=== PATIENT | female | born 1960 | race Caucasian/White ===

== ENCOUNTER 2024-04-09 13:47 | Outpatient (OUT) | payer BC, SELFPAY | END 2024-04-09 13:48 | disposition home or self-care (01) | LOC: CARD 13:50 | PROVIDERS: PCP Physician Assistant; Visit Provider Physician Assistant | DX: R00.2 Palpitations (principal); R06.02 Shortness of breath | CPT/HCPCS: 93246 ==

== ENCOUNTER 2024-06-01 07:08 | Outpatient (OUT) | payer BC, SELFPAY ==
--- NOTE | 2024-06-01 | NM_ITS ---
Patient Name: CHESTER UGALDE MR#: [id number] : 1960 Exam Date: 06/01/2024 Ordering Doctor: DR ARLENE HADDAD M.D. RADIOLOGY REPORT PROCEDURE: NM SHAY PERF SPECT REST STR COMPARISON: None. INDICATIONS: SHORTNESS OF BREATH TECHNIQUE: Exam Description: Stress/Rest one day protocol gated SPECT Rest Imagin.4 mCi Tc-99m Cardiolite IV on 06/01/2024 Stress Imaging 31.2 mCi Tc-99m Cardiolite IV on 06/01/2024 Exercise Protocol: 0.4 mg Lexiscan given IV Heart Rate (bpm): Rest: 63 Max: 102 PMHR: 64 Blood Pressure: Rest: 126/78 Max: 132/76 Symptoms: Rest and peak stress ECG findings were normal and the exercise portion of the study was normal per attending physician Dr. Lemus . For more details please see separate cardiac stress test report. FINDINGS: QUALITY OF STUDY: Excellent. PERFUSION DEFECT: None. LOCATION: N/A SIZE: N/A. SEVERITY: N/A. TYPE: N/A. WALL MOTION: Normal. LV SIZE: Normal. 70 mL. TID / TCD: None; 0.9 LVEF: Normal. Calculated EF 75%. SUMMARY: Myocardial perfusion imaging study is NORMAL. CONCLUSION: 1. Normal nuclear medicine myocardial perfusion scan. Dictated by: Jeff Martinez M.D. on 06/02/2024 at 13:14 Approved by: Jeff Martinez M.D. on 06/02/2024 at 13:20
--- NOTE | 2024-06-01 | PCN_ITS ---
CARDIAC STRESS TEST Requesting Physician: Procedure Date: 06/01/2024 This was a Lexiscan stress test with myocardial perfusion imaging, performed at [facility] on 06/01/2024. Informed consent was obtained. The patient was attached to electrocardiographic monitoring. An intravenous line was secured. Baseline ECG and vital signs were obtained. Lexiscan 0.4 mg was infused intravenously, followed by administration of Cardiolite. The patient then went on to obtain myocardial perfusion imaging. Resting heart rate was 63 BPM and maximum heart rate was 102 BPM. Resting blood pressure was 126/78 and maximum blood pressure was 132/76. Resting ECG showed sinus bradycardia with occasional PVCs. ECG following infusion of Lexiscan showed sinus rhythm with occasional PVCs. There were no ischemic ST changes seen. SUMMARY OF THE FINDINGS: 1. No evidence of ischemic ECG changes seen following infusion of Lexiscan. 2. Myocardial perfusion images will be reported separately. [facility]
--- OUTSIDE RECORDS SUMMARY | 2024-06-01 07:11 | XMS_ITS | CCD ---
Author Organization [facility] Care Team Providers Care Bit Setter Name Role Phone CANDY GEE Unavailable Unavailable CANDY GEE Unavailable Unavailable CANDY GEE Unavailable Unavailable Candy Gee Primary Care Provider Candy Gee Primary Care Provider Candy Gee Primary Care Provider CANDY GEE Primary Care Unavailable INO BROTHERS Referring Unavailabl e CANDY GEE Primary Care Unavailable SAMANTHA WEAVER Referring Unavailable Cali Zhao MD Unavailable Jose Cruz Young MD Primary Care Provider [phone] Candy Patterson Primary Care Provider CANDY GEE Attending Unavailable CANDY GEE Attending Unavailable ALEJANDRO CEBALLOS Attending Unavailable CANDY GEE Attending Unavailable Candy Gee PA-C Primary Care Provider SAMANTHA WEAVER Referring Unavailable CANDY GEE Primary Care Unavailable ARLENE HADDAD Attending Unavailable Allergies Allergy Classification Reported Allergen(s) Allergy Type Date of Onset Reaction(s) Facility NSAIDs (2 sources) celecoxib Drug Allergy 2 [facility] (See Comments[facility] Penicillins (antibiotic) (1 source) Penicillins Drug Allergy 2 Swelling [facility] (17 sources) celecoxib; Translations: [celecoxib] Drug Allergy 2 Other (See Comments) [facility] (1 source) penicillin; Translations: [penicillin] Drug Allergy [facility] (15 sources) Shellfish-Deriv ed Products Propensity to adverse reactions to drug 2 Diarrhea, Nausea And Vomiting, GI intolerance, Other [facility] (11 sources) meloxicam Drug Allergy 8 Other (See Comments) [facility] (16 sources) Penicillins; Translations: [PENICILLINS] Propensity to adverse reactions to drug 2 Swelling [facility] Work Phone: (12 sources) gabapentin; Translations: [GABAPENTIN] Drug Allergy 2 Nausea Only [facility] [employer] (4 sources) meloxicam Drug Allergy 3 Other [facility] (1 source) Seafood Propensity to adverse reactions to drug 2 Diarrhea, Nausea And Vomiting [facility] (1 source) Shellfish; Translations: [SHELLFISH DERIVED] Propensity to adverse reactions to drug (disorder) 4 [facility] Repository Medications Current Medications Medication Drug Class(es) Dates Sig (Normalized) Sig (Original) acetaminophen 500 mg oral tablet (2 sources) Start: 02-01-2022 End: 03-03-2022 take 2 tablets by mouth every six hours as needed for pain acetaminophen (TYLENOL) 500 MG tablet Take 2 tablets by mouth every 6 hours as needed for Pain 80 tablet 1 02/01/2022 03/03/2022 Active Start: 02-01-2022 1,000 mg, Oral , EVERY 6 HOURS PRN, Starting on Adalgisa 02/01/22 at 1003, Until Discontinued, Other, Pain (1-10) Give in addition to any other pain medication ordered at same time for any pain indication. Maximum dose of acetaminophen is 4000mg from all sources in 24 hours. Alternate ibuprofen and acetaminophen every 4 hours. Post-op Aloe Vera 25 MG CAPS (1 source) take 1 tablet by mouth once daily Aloe Vera 25 MG CAPS Take 1 tablet by mouth daily Active Aloe Vera 25 MG capsule (4 sources) take 1 tablet by mouth once daily Aloe Vera 25 MG capsule Take 1 tablet by mouth 1 (one) time each day 0 Active amitriptyline hydrochloride 25 mg oral tablet (5 sources) Tricyclic Antidepressant Start: 04-28-20 End: 09-30-19 amitriptyline (ELAVIL) 25 MG tablet 50 mg 0 04/28/2018 09/29/2021 Discontinued (LIST CLEANUP) baclofen 10 mg oral tablet (5 sources) gamma-Aminobutyric Acid-ergic Agonist Start: 01-03-20 take 1 tablet by mouth once daily as needed baclofen (LIORESAL) 10 MG tablet Take 1 tablet by mouth nightly as needed 01/02/2023 Active BD Disp Needle 23G X 1 misc (4 sources) Start: 09-15-19 23 BD Disp Needle 23G X 1 misc inject IM Once a month 90 days 0 09/14/2022 Active benzocaine 15 mg / menthol 2.6 mg oral lozenge (1 source) Standardized Chemical Allergen Start: 02-02-20 Benzocaine-Menthol (CEPACOL SORE THROAT) 15-2.6 MG lozenge 1 lozenge Biotin w/ Vitamins C & E (HAIR SKIN & NAILS GUMMIES PO) (4 sources) take 1 tablet by mouth in the morning Biotin w/ Vitamins C & E (HAIR SKIN & NAILS GUMMIES PO) Take 1 tablet by mouth in the morning. 0 Active bisacodyl 5 mg delayed release oral tablet (3 sources) Stimulant Laxative Start: 07-28-19 End: 09-30-19 bisacodyl (BISACODYL) 5 MG EC tablet Follow instructions provided given by the physician's office. 4 tablet 0 07/28/2021 09/29/2021 Discontinued (Therapy completed) calcium chloride 0.0014 meq/ml / potassium chloride 0.004 meq/ml / sodium chloride 0.103 meq/ml / sodium lactate 0.028 meq/ml injectable solution (3 sources) Start: 02-02-20 IntraVENous, at 125 mL/hr, CONTINUOUS, Starting on Adalgisa 02/01/22 at 1030, Post-op Start: 02-01-2022 End: 02-01-2022 lactated ringers infusion Start: 09-29-2021 lactated ringe rs infusion cholecalciferol 0.125 mg oral tablet (11 sources) Vitamin D take 2 tablets by mouth once daily vitamin D3 (CHOLECALCIFEROL) 125 MCG (5000 UT) TABS tablet Take 2 tablets by mouth daily Active ciprofloxacin 500 mg oral tablet (1 source) Quinolone Antimicrobial Start: 2021 End: 2021 take 1 tablet by mouth in the morning ciprofloxacin (CIPRO) 500 MG tablet Take 1 tablet by mouth in the morning and 1 tablet before bedtime. Do all this for 7 days. 14 tablet 0 02/01/2022 02/08/2022 Active dapsone 0.075 mg/mg topical gel (5 sources) Sulfone Start: 2017 End: 2021 ACZONE 7.5 % GEL APPLY TO FACE ONCE DAILY 0 10/18/2017 09/29/2021 Discontinued (LIST CLEANUP) diclofenac sodium 0.01 mg/mg topical gel (12 sources) Nonsteroidal Anti-inflammatory Drug diclofenac sodium (VOLTAREN) 1 % GEL Apply 2 g topically 2 times daily Active 1 ml diphenhydrAMINE hydrochloride 50 mg/ml cartridge (1 source) Histamine-1 Receptor Antagonist Start: 2021 End: 2021 diphenhydrAMINE (BENADRYL) injection 12.5 mg docusate sodium 100 mg oral capsule (3 sources) Start: 2021 take 1 capsule by mouth twice daily as needed for constipation docusate sodium (COLACE) 100 MG capsule Take 1 capsule by mouth 2 times daily as needed for Constipation 60 capsule 0 02/01/2022 Active Elderberry preparation (4 sources) take 1 tablet by mouth in the morning ELDERBERRY PO Take 1 tablet by mouth in the morning. 0 Active estrogens, conjugated (residential) 0.625 mg/ml vaginal cream (6 sources) Estrogen Start: 2021 End: 2023 Premarin 0.625 MG/GM cream insert 0.5 gram with APPLICATOR vaginally once daily POST-OPERATIVELY ON DAY NUMBER 8 0 04/02/2022 08/15/2023 Discontinued (Therapy completed) Start: 01-16-2022 conjugated est rogens (PREMARIN) 0.625 MG/GM vaginal cream Indications: Atrophy of vagina Place 0.5 g vaginally daily Post operatively on day #8 post op 1 each 3 01/16/2022 Active 1 ml HYDROmorphone hydrochloride 1 mg/ml cartridge (3 sources) Opioid Agonist Start: 02-01-2022 HYDROmorphone (DILAUDID) injection 0.5 mg Start: 02-01-2022 HYDROmorphone (DILAUDID) injection 0.25 mg Start: 09-29-2021 HYDROmorphone (DILAUDID) injection 0.5 mg 1 ml ketorolac tromethamine 30 mg/ml cartridge (1 source) Nonsteroidal Anti-inflammatory Drug, Cyclooxygenase Inhibitor Start: 02-01-2022 End: 02-06-2022 ketorolac (TORADOL) injection 15 mg levothyroxine sodium 0.125 mg oral tablet (5 sources) l-Thyroxine Start: 07-25-2023 End: 08-15-2023 take 1 tablet by mouth once daily in the morning levothyroxine (Synthroid, Levoxyl) 125 MCG tablet Indications: Wanda's disease (CMS/HCC) take 1 tablet by mouth every morning ON AN EMPTY STOMACH 30 tablet 3 07/25/2023 08/15/2023 Discontinued (Ineffective) take 1 tablet by mouth once mat y levothyroxine (SYNTHROID) 112 MCG tablet Take 112 mcg by mouth Daily 0 Suspended 10 ml lidocaine hydrochloride 10 mg/ml injection (1 source) Antiarrhythmic, Amide Local Anesthetic Start: 09-29-2021 End: 09-29-2021 lidocaine PF 1 % injection 1 mL loratadine 10 mg oral tablet (2 sources) take 1 tablet by mouth every twenty-four hours as needed loratadine (Claritin) 10 MG tablet Take 10 mg by mouth Daily as needed for allergies 0 Active 1 ml meperidine hydrochloride 25 mg/ml cartridge (1 source) Opioid Agonist Start: 09-29-2021 meperidine (DEMEROL) injection 12.5 mg omeprazole 20 mg delayed release oral capsule (12 sources) Proton Pump Inhibitor Start: 12-21-2021 take 1 capsule by mouth twice daily before mealtime omeprazole (PRILOSEC) 20 MG delayed release capsule Take 1 capsule by mouth 2 times daily (before meals) 180 capsule 1 12/21/2021 Active Start: 02-25-2020 End: 08-15-2023 take 1 capsule by mouth once daily omeprazole (PRILOSEC) 40 MG delayed release capsule take 1 capsule by mouth once daily 30 capsule 3 02/25/2020 Active Start: 04-10-2019 take 1 capsule by mo [facility] once daily omeprazole (PRILOSEC) 20 MG delayed release capsule Take 1 capsule by mouth daily 90 capsule 3 04/10/2019 Active 2 ml ondansetron 2 mg/ml injection (1 source) Serotonin-3 Receptor Antagonist Start: 09-29-2021 End: 09-29-2021 ondansetron (ZOFRAN) injection 4 mg ondansetron (ZOFRAN-ODT) disintegrating tablet 4 mg (1 source) Start: 02-01-2022 ondansetron (ZOFRAN-ODT) disintegrating tablet 4 mg oxyCODONE (1 source) Opioid Agonist Start: 02-01-2022 oxyCODONE (ELVIA ICODONE) immediate release tablet 5 mg phenazopyridine hydrochloride 200 mg delayed release oral tablet (1 source) Start: 02-01-2022 phenazopyridin e (PYRIDIUM) tablet 200 mg polyethylene glycol 3350 [id number] mg powder for oral solution (3 sources) Osmotic Laxative Start: 07-28-2021 End: 09-29-2021 polyethylene glycol (GLYCOLAX) 17 GM/SCOOP powder Follow instructions provided to you from physician's office. 238 g 0 07/28/2021 09/29/2021 Discontinued (Therapy completed) 1000 ml sodium chloride 9 mg/ml injection (6 sources) Start: 02-01-2022 IntraVENous, a t 5-250 mL/hr, PRN, if patient receiving piggyback infusions and maintenance fluids are not ordered OR KVO fluids to protect IV site / prevent frequent line interruptions/ long duration, Starting on Adalgisa 02/01/22 at 1003 For piggyback infusion, administer at same rate as piggyback for a total of 25 mL. Enter 25 mL into dose field and piggyback rate into rate field of order. If piggyback is infusing at a rate less than 100 mL/hr, enter 25 mL into dose field and 100 mL/hr into rate field of order. For KVO fluids, enter rate of 20 mL/hr or less into rate field of order. Post-op Start: 02-01-2022 take 1 dose intraven ously twice daily 5-40 mL, IntraVENous, EVERY 12 HOURS SCHEDULED (2 times per day), First dose on Adalgisa 02/01/22 at 1030, Until Discontinued For Line Patency: Peripheral IV = 5 mL; Midline or Central Line = 10 mL/lumen. If following IV push medication, administer flush at same rate as the IV push. Flush volume is determined by type of infusion therapy being given. For non-viscous solutions use: Peripheral IV = 5 mL Midline or Central Line = 10 mL/lumen For viscous solutions (i.e. blood components, parenteral nutrition, contrast media, or after obtaining blood sample) use: Peripheral IV = 10 mL Midline or Central Line = 20 mL/lumen Post-op Start: 02-01-2022 take 5-40 mL intrave nously once as needed 5-40 mL, IntraVENous, PRN, Starting on Adalgisa 02/01/22 at 1003, Until Discontinued, Line Care, After every IV line use For Line Patency: Peripheral IV = 5 mL; Midline or Central Line = 10 mL/lumen. If following IV push medication, administer flush at same rate as the IV push. Flush volume is determined by type of infusion therapy being given. For non-viscous solutions use: Peripheral IV = 5 mL Midline or Central Line = 10 mL/lumen For viscous solutions (i.e. blood components, parenteral nutrition, contrast media, or after obtaining blood sample) use: Peripheral IV = 10 mL Midline or Central Line = 20 mL/lumen Post-op Start: 09-29-2021 0.9 % sodium c hloride infusion Start: 09-29-2021 sodium chlorid e flush 0.9 % injection 5-40 mL thiamine / vitamin B12 (1 source) Vitamin B12 Vitamin B1-B12 5 .5-0.0125 MG/5ML SOLN Inject into the muscle every 30 days. 0 Active thyroid (residential) 60 mg oral tablet (9 sources) Start: 08-15-2023 take 1 tablet by mouth in the morning thyroid (MANAGER NIGHT Thyroid) 60 MG tablet Indications: Acquired hypothyroidism (CMS/HCC) , ESS (euthyroid sick syndrome) Take 1 tablet (60 mg) by mouth in the morning. 30 tablet 2 08/15/2023 Active Start: 08-15-2023 take 1 tablet by arsalan th in the morning thyroid (MANAGER NIGHT Thyroid) 60 MG tablet Indications: Acquired hypothyroidism (CMS/HCC) , ESS (euthyroid sick syndrome) Take 1 tablet (60 mg) by mouth in the morning. 30 tablet 2 08/15/2023 Active Start: 12-19-2021 take 60 mg by mouth twice daily 60 mg, Oral, 2 times daily, First dose on Adalgisa 02/01/22 at 2100, Until Discontinued Start: 11-09-2021 take 1 tablet by arsalan th twice daily MANAGER NIGHT THYROID 90 MG tablet take 1 tablet by mouth twice a day ON AN EMPTY STOMACH 0 11/09/2021 Active take 1 tablet by arsalan th once daily in the morning MANAGER NIGHT THYROID 60 MG tablet Take 1 tablet by mouth every morning Active triamcinolone acetonide 0.055 mg/actuat metered dose nasal spray (3 sources) Corticosteroid End: 08-15-2023 take 1 spray(s) nasal route once daily triamcinolone (Nasacort Allergy 24HR) 55 MCG/ACT nasal inhaler Administer 1 spray into each nostril 1 (one) time each day at the same time. 0 08/15/2023 Discontinued (Therapy completed) Vitamin B1-B12 5.5-0.0125 MG/5ML SOLN (10 sources) Vitamin B1-B12 5.5-0.0125 MG/5ML SOLN Inject into the muscle every 30 days. 0 Suspended Vitamin B1-B12 5 .5-0.0125 MG/5ML SOLN Inject into the muscle every 30 days. 0 Active vitamin b12 1 mg/ml injectable solution (20 sources) Vitamin B12 Start: 12-31-2021 cyanocobalamin (Vitamin B-12) 1000 MCG/ML injection Inject 1,000 mcg into the shoulder, thigh, or buttocks every 30 (thirty) days. 0 12/31/2021 Active Start: 10-02-2021 cyanocobalamin 1000 MCG/ML injection inject 1 milliliter ( 1000 MCG ) intramuscularly Every Month 0 10/02/2021 Active take 1 tablet by arsalan th once daily Cyanocobalamin (VITAMIN B 12 PO) Take 1 tablet by mouth daily. 0 Suspended take 1 tablet by arsalan th once daily Cyanocobalamin (VITAMIN B 12 PO) Take 1 tablet by mouth daily. 0 Active Completed/Discontinued Medications Medication Drug Class(es) Dates Sig (Normalized) Sig (Original) 50 ml clindamycin 18 mg/ml injection (1 source) Lincosamide Antibacterial Start: 02-01-2022 End: 02-02-2022 900 mg, IntraVENous, EVERY 8 HOURS, 2 doses, First dose on Sat02/01/22 at 1600, Last dose on Sat02/02/22 at 0000 Antimicrobial Indications: Surgical Prophylaxis 0.4 ml enoxaparin sodium 100 mg/ml prefilled syringe (1 source) Low Molecular Weight Heparin Start: 02-01-2022 inject 40 mg by subcutaneous injection once daily 40 mg, SubCUTAneous, DAILY, First dose on Sat02/01/22 at 2100, Until Discontinued Indication of Use: Prophylaxis-DVT/PE Hold if Hgb <[address] Ksenia Herman via perfect serve Post-op magnesium citrate 58.2 mg/ml oral solution (2 sources) Start: 07-28-2021 take 296 mL by mouth once magnesium citrate solution Take 296 mLs by mouth once for 1 dose 296 mL 0 07/28/2021 Suspended melatonin 3 mg oral tablet (1 source) Start: 02-01-2022 take 3 mg by mouth once daily as needed 3 mg, Oral, NIGHTLY PRN, Starting on Sat02/01/22 at 2100, Until Discontinued, Sleep, Post-op metoprolol tartrate 25 mg oral tablet (12 sources) beta-Adrenergic Laurie Start: 02-02-2022 take 25 mg by mouth once daily 25 mg, Oral, DAILY, First dose on Sat02/02/22 at 0900, Until Discontinued pantoprazole 40 mg delayed release oral tablet (1 source) Proton Pump Inhibitor Start: 02-02-2022 take 40 mg by mouth once daily before breakfast 40 mg, Oral, DAILY BEFORE BREAKFAST, First dose on Sat02/02/22 at 0700, Until Discontinued Do not crush or break. Substituted for Omeprazole (PRILOSEC). Problems Active Problems Problem Classification Problem Date Documented Da te Episodic/Chronic Blindness and vision defects (1 source) Abnormal vision 04-17-2012 Chronic Blindness and vision defects (17 sources) Abnormal vision; Translations: [Unspecified visual disturbance] Onset: 4 04-17-2012 Episodic Calculus of urinary tract (18 sources) History of calculus of kidney; Translations: [Personal history of urinary calculi] Onset: 3 04-17-2012 Episodic Cardiac dysrhythmias (20 sources) Palpitations; Translations: [Palpitations] Onset: 3 04-17-2012 Episodic Diverticulosis and diverticulitis (20 sources) Diverticulosis of colon; Translations: [Diverticulosis of large intestine without perforation or abscess without bleeding] Onset: 2 Resolved: 4 11-20-2021 Chronic Esophageal disorders (20 sources) Gastroesophageal reflux disease; Translations: [Gastro-esophageal reflux disease without esophagitis] Onset: 1 Resolved: 4 Chronic Genitourinary symptoms and ill-defined conditions (12 sources) Overflow incontinence of urine; Translations: [Overflow incontinence] Onset: 2 Chronic Immunity disorders (6 sources) Disorder of immune function; Translations: [Other specified disorders involving the immune mechanism, not elsewhere classified] Onset: 3 01-01-2023 Chronic Malaise and fatigue (13 sources) Chronic fatigue syndrome; Translations: [Chronic fatigue, unspecified] Onset: 2 11-20-2021 Chronic Nutritional deficiencies (13 sources) Vitamin D deficiency; Translations: [Vitamin D deficiency, unspecified] Onset: 2 11-20-2021 Chronic Osteoarthritis (20 sources) Arthritis; Translations: [Unspecified osteoarthritis, unspecified site] Onset: 2 Resolved: 4 04-17-2012 Chronic Other connective tissue disease (6 sources) Fibromyalgia; Translations: [Fibromyalgia] Onset: 3 01-01-2023 Episodic Other gastrointestinal disorders (13 sources) Irritable bowel syndrome with diarrhea; Translations: [Irritable bowel syndrome with diarrhea] Onset: 2 11-20-2021 Chronic Other lower respiratory disease (2 sources) Shortness of breath; Translations: [Shortness of breath] Onset: 4 Episodic Other nervous system disorders (13 sources) Median neuropathy; Translations: [Other lesions of median nerve, unspecified upper limb] Onset: 2 11-20-2021 Chronic Other nervous system disorders (13 sources) Chronic pain; Translations: [Other chronic pain] Onset: 2 11-20-2021 Chronic Other non-traumatic joint disorders (6 sources) Pain in unspecified knee; Translations: [Pain in joint, lower leg] Onset: 3 01-01-2023 Episodic Other nutritional; endocrine; and metabolic disorders (13 sources) Lipoprotein deficiency disorder; Translations: [Lipoprotein deficiency] Onset: 2 11-20-2021 Chronic Other nutritional; endocrine; and metabolic disorders (7 sources) Obesity; Translations: [Obesity, unspecified] Onset: 2 11-20-2021 Chronic Other nutritional; endocrine; and metabolic disorders (6 sources) Obesity caused by energy imbalance; Translations: [Other obesity due to excess calories] Onset: 3 12-25-2022 Chronic Other screening for suspected conditions (not mental disorders or infectious disease) (13 sources) Patient encounter status; Translations: [Encounter for screening mammogram for malignant neoplasm of breast] Onset: 4 Resolved: 2 Episodic Other skin disorders (17 sources) Easy bruising; Translations: [Other skin changes] Onset: 4 04-17-2012 Episodic Other upper respiratory disease (13 sources) Allergic rhinitis due to pollen; Translations: [Allergic rhinitis due to pollen] Onset: 2 11-20-2021 Chronic Ovarian cyst (6 sources) Cyst of left ovary; Translations: [Unspecified ovarian cyst, left side] Onset: 3 01-01-2023 Episodic Prolapse of female genital organs (20 sources) Herniated urinary bladder; Translations: [Cystocele, unspecified] Onset: 2 Chronic Residual codes; unclassified (7 sources) Organic mixed sleep disorder; Translations: [Other sleep disorders] Onset: 2 11-20-2021 Chronic Residual codes; unclassified (6 sources) Organic sleep disorder; Translations: [Other sleep disorders] Onset: 3 01-01-2023 Chronic Residual codes; unclassified (18 sources) Family history of breast cancer; Translations: [Family history of malignant neoplasm of breast] Onset: 4 11-17-2015 Episodic Residual codes; unclassified (1 source) Postmenopausal state; Translations: [Asymptomatic menopausal state] Episodic Rheumatoid arthritis and related disease (6 sources) Inflammatory polyarthropathy; Translations: [Inflammatory polyarthropathy] Onset: 3 01-01-2023 Chronic Spondylosis; intervertebral disc disorders; other back problems (20 sources) Thoracic spondylosis without myelopathy; Translations: [Spondylosis without myelopathy or radiculopathy, thoracic region] Onset: 2 11-20-2021 Chronic Thyroid disorders (20 sources) Hypothyroidism; Translations: [Other specified hypothyroidism] Onset: 2 02-27-2018 Chronic Thyroid disorders (6 sources) Sick-euthyroid syndrome; Translations: [Sick-euthyroid syndrome] Onset: 3 12-25-2022 Episodic Unclassified (1 source) History of endometrial ablation Onset: 6 03-13-2016 Past or Other Problems Problem Classification Problem Date Documented Da te Episodic/Chronic Abdominal hernia (13 sources) Hiatal hernia; Translations: [Diaphragmatic hernia without obstruction or gangrene] Onset: 2 11-20-2021 Episodic Abdominal pain (17 sources) Abdominal pain; Translations: [Unspecified abdominal pain] Onset: 8 Resolved: 4 12-12-2017 Episodic Benign neoplasm of uterus (18 sources) Submucous leiomyoma of uterus; Translations: [Submucous leiomyoma of uterus] Onset: 2 03-13-2016 Episodic Fluid and electrolyte disorders (13 sources) Hypokalemia; Translations: [Hypokalemia] Onset: 1 11-20-2021 Episodic Gastroduodenal ulcer (except hemorrhage) (14 sources) H/O: gastric ulcer; Translations: [Personal history of peptic ulcer disease] Onset: 2 12-21-2021 Episodic Nonspecific chest pain (4 sources) Chest pain; Translations: [Chest pain, unspecified] Onset: 9 Resolved: 4 07-10-2023 Episodic Nutritional deficiencies (13 sources) Vitamin B-complex deficiency ; Translations: [Vitamin B deficiency, unspecified] Onset: 2 11-20-2021 Episodic Other and unspecified benign neoplasm (18 sources) Polyp of colon; Translations: [Polyp of colon] Onset: 8 02-04-2018 Episodic Other and unspecified benign neoplasm (13 sources) Tubular adenoma ; Translations: [Benign neoplasm, unspecified site] Onset: 2 12-21-2021 Episodic Other disorders of stomach and duodenum (13 sources) Mass of stomach; Translations: [Other diseases of stomach and duodenum] Onset: 8 11-21-2021 Episodic Other female genital disorders (18 sources) Enlarged uterus; Translations: [Hypertrophy of uterus] Onset: 2 03-13-2016 Episodic Other gastrointestinal disorders (18 sources) Abdominal bloating; Translations: [Abdominal distension (gaseous)] Onset: 8 12-12-2017 Episodic Other gastrointestinal disorders (4 sources) H/O: gastrointestinal disease; Translations: [Personal history of other diseases of the digestive system] Onset: 3 Resolved: 4 01-01-2023 Episodic Other nutritional; endocrine; and metabolic disorders (14 sources) Weight loss; Translations: [Abnormal weight loss] Onset: 2 Resolved: 4 07-28-2021 Episodic Residual codes; unclassified (17 sources) History of endometrial ablation; Translations: [Other specified postprocedural states] Onset: 6 03-13-2016 Episodic Residual codes; unclassified (1 source) Bruises easily 04-17-2012 Episodic Residual codes; unclassified (7 sources) Dyssomnia; Translations: [Sleep disorder, unspecified] Onset: 2 11-20-2021 Episodic Residual codes; unclassified (4 sources) History of vaginoplasty; Translations: [Other specified postprocedural states] Onset: 2 Episodic Spondylosis; intervertebral disc disorders; other back problems (20 sources) Cervico-occipital neuralgia; Translations: [Occipital neuralgia] Onset: 2 11-20-2021 Episodic Urinary tract infections (11 sources) Acute cystitis; Translations: [Acute cystitis without hematuria] Onset: 1 Resolved: 4 11-20-2021 Episodic Viral infection (20 sources) Disease caused by 2019-nCoV; Translations: [COVID-19] Onset: 1 Resolved: 4 07-28-2021 Episodic Results Test Name Value Interpretation Reference Range Facility Office Visiton 05-20-2024 Follow-up visit [id number] Chester Negro 1960 F Date Provider Department Center 05/20/2024 271-ARLENE HADDAD CARD [facility] Family History Problem Relation Age of Onset Supraventricular tachycardia Mother Family Status - Relation Status Age at Mother Level of Service:[address] ME OFFICE/OUTPATIENT NEW MODERATE MDM 45 MINUTES Normal [facility] FABIAN DIGITAL SCREEN ONEIL Renteria 04-27-2024 [facility] FABIAN DIGITAL SCREEN BILATERAL EXAMINATION: SCREENING DIGITAL BILATERAL MAMMOGRAM WITH TOMOSYNTHESIS, 04/24/2024 TECHNIQUE: Screening mammography was performed with tomosynthesis including MLO and CC views of the bilateral breasts. Computer aided detection was used for the interpretation of this exam. COMPARISON: 12 April 2023; 25 December 2021 HISTORY: Screening. Positive family history of breast cancer; maternal grandmother at 60 maternal great grandmother. 3 year history of oral contraception. No hormonal replacement therapy or breast interventions. TC score 9.21 FINDINGS: Bilateral breasts are composed of scattered fibroglandular density. No skin thickening, nipple contour changes, suspicious calcifications, suspicious masses, areas of architectural distortion or significant interval changes are noted. IMPRESSION: No evidence of malignancy seen in either breast. Advise annual screening mammography. Breast tissue can be either dense or not dense. Dense tissue makes it harder to find breast cancer on a mammogram and also raises the risk of developing breast cancer. Your breast tissue is NOT DENSE. Talk to your health care provider about breast density, risk for breast cancer and your individual situation. BI-RADS 1 BIRADS: BIRADS - CATEGORY 1 Negative, no evidence of malignancy. Normal interval follow-up is recommended in 12 months. OVERALL ASSESSMENT - NEGATIVE A letter of notification will be sent to the patient regarding the results. [employer] recommends annual mammograms for women 40 years and older. Performing Facility: [facility] [address] [place], [place] [address] Interpreted by: Denice Danielle MD Signed by: Denice Danielle MD 04/27/24 Final result Normal [facility] HPV DNA High Riskon 11-24-19 23 HPV Interp Normal [facility] Comment on above: Result Comment: This test amplifies and detects DNA of 14 high-risk HPV types associated with cervical cancer and its precursor lesions (HPV types 16,18, 31, 33, 35, 39, 45, 51, 52, 56, 58, 59, 66, and 68). Sensitivity may be affected by specimen collection methods, stage of infection, and the presence of interfering substances. Results should be interpreted in conjunction with other available laboratory and clinical data. A negative high-risk HPV result does not exclude the possibility of future cytologic HSIL or underlying CIN2-3 or cancer. This test is intended for medical purposes only and is not valid for the evaluation of suspected sexual abuse or for other forensic purposes. Performed By: #### H PVH #### [address] [address] Dye Weigher Helper: Sonu Heredia MD HPV Type 16 Not detected [facility] Comment on above: Performed By: #### H PVH #### [address] [address] Dye Weigher Helper: Sonu Heredia MD HPV Type 18 Not detected [facility] Comment on above: Performed By: #### H PVH #### [address] [address] Dye Weigher Helper: Sonu Heredia MD Other High Risk HPV Not detected [facility] Comment on above: Performed By: #### H PVH #### [address] [address] Dye Weigher Helper: Sonu Heredia MD HPV Sample .THIN PREP [facility] Comment on above: Performed By: #### H PVH #### [address] [id number] Dye Weigher Helper: Sonu Heredia MD Source CERVICAL MATERIAL Normal [facility] Comment on above: Performed By: #### H [facility] #### [id number] [place], [place] [id number] Dye Weigher Helper: Sonu Heredia MD Cytologyon 11-21-2022 Cytology (NOTE) Path Number: [id number] DIAGNOSIS Cervical material, (ThinPrep vial, Imaging-assisted review): Specimen Adequacy: Satisfactory for evaluation. - Endocervical/transformat ion zone component present. Descriptive Diagnosis: Negative for intraepithelial lesion or malignancy. Cytotech Screener: SS4 Electronically Signed Out MERCED Goldman(ASCP) ss4/11/28/2022 Procedure/Addendum HPV Procedure Report Date Ordered: 11/23/2022 Status: Signed Out Date Complete: 11/23/2022 By: System Interface Date Reported: 11/23/2022 Sample: HPV Type 16 Result: Not Detected Ref Range: (Not Detected) Sample: HPV Type 18 Result: Not Detected Ref Range: (Not Detected) Sample: Other High Risk HPV Result: Not Detected Ref Range: (Not Detected) Sample: HPV Interp Result: Ref Range: (Not Detected) This test amplifies and detects DNA of 14 high-risk HPV types associated with cervical cancer and its precursor lesions (HPV types 16,18, 31, 33, 35, 39, 45, 51, 52, 56, 58, 59, 66, and 68). Sensitivity may be affected by specimen collection methods, stage of infection, and the presence of interfering substances. Results should be interpreted in conjunction with other available laboratory and clinical data. A negative high-risk HPV result does not exclude the possibility of future cytologic HSIL or underlying CIN2-3 or cancer. This test is intended for medical purposes only and is not valid for the evaluation of suspected sexual abuse or for other forensic purposes. Performed at [facility], [address] [place] [address] [id number] . Source of Specimen: A: Cervical material, (ThinPrep vial, Imaging-assisted review) HPV Reflex?................. .....HPV Regardless Clinical History Postmenopausal Z01.419 Routine bellows tester exam without abnormal findings Co-Test: ThinPrep Pap with high risk HPV testing Processing Lab: [address] [id number] Interpretation performed at [address] [address] The Pap smear is a screening test primarily for squamous epithelial lesions, which is subject to both false negative and false positive results. Your patient should be reminded to consult you immediately if she experiences any suspicious signs or symptoms, regardless of her Pap smear result. GYNECOLOGIC CYTOLOGY REPORT Patient Name: CHESTER NEGRO [facility] Rec: [id number] [facility] CONSULTING PATHOLOGISTS [facility] ANATOMIC PATHOLOGY [address] [place] [id number] [facility] Comment on above: Performed By: #### P PPVP #### [address] [id number] Dye Weigher Helper: Sonu Heredia MD UA w/Reflex Cultureon 2022 Bilirubin, SemiQt,Ur Negative Normal NEG [facility] Comment on above: Performed By: #### U AX #### [address] [id number] Dye Weigher Helper: Sonu Heredia MD Blood, Urine Negative Normal NEG [facility] Comment on above: Performed By: #### U AX #### [address] [id number] Dye Weigher Helper: Sonu Heredia MD Clarity (U) Clear Normal CLEAR [facility] Comment on above: Performed By: #### U AX #### [address] [address] Dye Weigher Helper: Sonu Heredia MD Color (U) Yellow Normal YEL [facility] Comment on above: Performed By: #### U AX #### [address] [address] Dye Weigher Helper: Sonu Heredia MD Comment Microscopic exam not performed based on chemical results unless requested in Normal [facility] Comment on above: Result Comment: orig inal order. Performed By: #### U AX #### [address] [address] Dye Weigher Helper: Sonu Heredia MD Glucose Ql (U) Negative Normal NEG [facility] Comment on above: Performed By: #### U AX #### [address] [address] Dye Weigher Helper: Sonu Heredia MD Ketones Ql (U) Negative Normal NEG [facility] Comment on above: Performed By: #### U AX #### [address] [address] Dye Weigher Helper: Sonu Heredia MD Leukocyte esterase Test strip Ql (U) Negative Normal NEG [facility] Comment on above: Performed By: #### U AX #### [address] [address] Dye Weigher Helper: Sonu Heredia MD Nitrite,Ur Negative Normal NEG [facility] Comment on above: Performed By: #### U AX #### [address] [address] Dye Weigher Helper: Sonu Heredia MD PH,Ur 6.5 Normal 5.0-8.[address] [facility] Comment on above: Performed By: #### U AX #### [address] [address] Dye Weigher Helper: Sonu Heredia MD Protein Ql (U) Negative Normal NEG [facility] Comment on above: Performed By: #### U AX #### [address] [address] Dye Weigher Helper: Sonu Heredia MD Spec. [place],Ur 1.011 Normal 1.005-1.030 [facility] Comment on above: Performed By: #### U AX #### [facility] [address] [place] [id number] Dye Weigher Helper: Sonu Heredia MD Urobilinogen,Ur Normal Normal NORM [facility] Comment on above: Performed By: #### U AX #### [facility] [address] [place] [address] Dye Weigher Helper: Sonu Heredia MD UA w/Reflex Cultureon 2022 Bilirubin, SemiQt,Ur Negative Normal NEG [facility] Comment on above: Performed By: #### U AX, UMICAO #### [address] [address] Dye Weigher Helper: Sonu Heredia MD Blood, Urine Negative Normal NEG [facility] Comment on above: Performed By: #### U AX, UMICAO #### [facility] [address] [place] [id number] Dye Weigher Helper: Sonu Heredia MD Clarity (U) Turbid Abnormal CLEAR [facility] Comment on above: Performed By: #### U AX, UMICAO #### [facility] [address] [place] [address] Dye Weigher Helper: Sonu Heredia MD Color (U) Yellow Normal YEL [facility] Comment on above: Performed By: #### U AX, UMICAO #### [facility] [address] [place] [id number] Dye Weigher Helper: Sonu Heredia MD Glucose Ql (U) Negative Normal NEG [facility] Comment on above: Performed By: #### U AX, UMICAO #### [facility] [address] [place] [id number] Dye Weigher Helper: Sonu Heredia MD Ketones Ql (U) Negative Normal NEG [facility] Comment on above: Performed By: #### U AX, UMICAO #### [facility] [address] [place] [address] Dye Weigher Helper: Sonu Heredia MD Leukocyte esterase Test strip Ql (U) TRACE Abnormal NEG [facility] Comment on above: Performed By: #### U AX, UMICAO #### [facility] [address] [place] [id number] Dye Weigher Helper: Sonu Heredia MD Nitrite,Ur Negative Normal NEG [facility] Comment on above: Performed By: #### U AX, UMICAO #### [facility] [address] [place] [address] Dye Weigher Helper: Sonu Heredia MD PH,Ur 8.0 Normal 5.0-8.[address] [facility] Comment on above: Performed By: #### U AX, UMICAO #### [facility] [address] [place] [id number] Dye Weigher Helper: Sonu Heredia MD Protein Ql (U) Negative Normal NEG [facility] Comment on above: Performed By: #### U AX, UMICAO #### [facility] [address] [place] [address] Dye Weigher Helper: Sonu Heredia MD Spec. [place],Ur 1.023 Normal 1.005-1.030 [facility] Comment on above: Performed By: #### U AX, UMICAO #### [facility] [address] [place] [address] Dye Weigher Helper: Sonu Heredia MD Urobilinogen,Ur Normal Normal NORM [facility] Comment on above: Performed By: #### U AX, UMICAO #### [facility] [address] [place] [address] Dye Weigher Helper: Sonu Heredia MD Urinalysis,Microon 3 Amorphous sediment LM Ql (Urine sed) 2+ Abnormal NONE [facility] Comment on above: Performed By: #### U AX, UMICAO #### [facility] [address] [place] [address] Dye Weigher Helper: Sonu Heredia MD Epithelial cells LM Ql (Urine sed) 0 TO 2 Normal 0-[address] [facility] Comment on above: Performed By: #### U AX, UMICAO #### [facility] [address] [place] [address] Dye Weigher Helper: Sonu Heredia MD Urine RBC's 0 TO 2 Normal 0-[address] [facility] Comment on above: Performed By: #### U AX, UMICAO #### [facility] [address] [place] [address] Dye Weigher Helper: Sonu Heredia MD Urine WBC's 2 TO 5 Normal 0-[address] [facility] Comment on above: Performed By: #### U AX, UMICAO #### [facility] [address] [place] [address] Dye Weigher Helper: Sonu Heredia MD DEXA BONE DENSITY AXIAL [facility] Normal bone mineral density by WHO criteria. RECOMMENDATIONS: 1. All patients should optimize their calcium and vitamin D intake. 2. Consider FDA-approved medical therapies in postmenopausal women and men aged 50 years and older, based on the following: - A hip or vertebral (clinical or morphometric) fracture - T-score less than or equal to -2.5 at the femoral neck or spine after appropriate evaluation to exclude secondary causes - Low bone density (T-score between -1.0 and -2.5 at the femoral neck or spine) and a 10-year probability of a hip fracture greater than or equal to 3% or a 10-year probability of a major osteoporosis-related fracture greater than or equal to 20% based on FRAX calculation. - Clinician judgment and/or patient preferences may indicate treatment for people with 10-year fracture probabilities above or below these levels - Further guidance on treatment can be found at the National Osteoporosis Foundation's website bonesource.org. 3. Patients with diagnosis of osteoporosis or at high risk for fracture should have regular bone mineral density tests. For patients eligible for Medicare, routine testing is allowed once every 2 years. The testing frequency can be increased to one year for patients who have rapidly progressing disease, those who are receiving or discontinuing medical therapy to restore bone mass or have additional risk factors. Template code: [id number] [facility] EXAMINATION: BONE DENSITOMETRY 03/20/2022 6:25 am TECHNIQUE: A bone density dual x-ray absorptiometry (DXA) scan was performed of the lumbar spine and left hip on a [employer] system. COMPARISON: None. HISTORY: ORDERING SYSTEM PROVIDED HISTORY: Post-menopausal TECHNOLOGIST PROVIDED HISTORY: post menopausal Gender: F Age: 61 y/o FINDINGS: LUMBAR SPINE: L1-L4 BMD: 1.461 g/cm2 T-score: 2.1 Z-score: 2.5 LEFT TOTAL HIP: BMD: 1.156 g/cm2 T-score: 1.2 Z-score: 1.5 LEFT FEMORAL NECK: BMD: 1.136 g/cm2 T-score: 0.7 Z-score: 1.4 FRAX: Not Indicated. [facility] Derek Fairchild DO - 03/20/2022 EXAMINATION: BONE DENSITOMETRY 03/20/2022 6:25 am TECHNIQUE: A bone density dual x-ray absorptiometry (DXA) scan was performed of the lumbar spine and left hip on a [employer] Pro[employer] system. COMPARISON: None. HISTORY: ORDERING SYSTEM PROVIDED HISTORY: Post-menopausal TECHNOLOGIST PROVIDED HISTORY: post menopausal Gender: F Age: 61 y/o FINDINGS: LUMBAR SPINE: L1-L4 BMD: 1.461 g/cm2 T-score: 2.1 Z-score: 2.5 LEFT TOTAL HIP: BMD: 1.156 g/cm2 T-score: 1.2 Z-score: 1.5 LEFT FEMORAL NECK: BMD: 1.136 g/cm2 T-score: 0.7 Z-score: 1.4 FRAX: Not Indicated. IMPRESSION: Normal bone mineral density by WHO criteria. RECOMMENDATIONS: 1. All patients should optimize their calcium and vitamin D intake. 2. Consider FDA-approved medical therapies in postmenopausal women and men aged 50 years and older, based on the following: - A hip or vertebral (clinical or morphometric) fracture - T-score less than or equal to -2.5 at the femoral neck or spine after appropriate evaluation to exclude secondary causes - Low bone density (T-score between -1.0 and -2.5 at the femoral neck or spine) and a 10-year probability of a hip fracture greater than or equal to 3% or a 10-year probability of a major osteoporosis-related fracture greater than or equal to 20% based on FRAX calculation. - Clinician judgment and/or patient preferences may indicate treatment for people with 10-year fracture probabilities above or below these levels - Further guidance on treatment can be found at the National Osteoporosis Foundation's website bonesource.org. 3. Patients with diagnosis of osteoporosis or at high risk for fracture should have regular bone mineral density tests. For patients eligible for Medicare, routine testing is allowed once every 2 years. The testing frequency can be increased to one year for patients who have rapidly progressing disease, those who are receiving or discontinuing medical therapy to restore bone mass or have additional risk factors. Template code: [id number] [facility] Work Phone: Radiology Study observation (narrative) [employer] Phone: DEXA BONE DENSITY AXIAL SKEL ETONOrdered By: Derek Fairchild on 03-20-2022 [facility] Work Phone: Hemoglobin and Hematocriton 02-01-2022 Hematocrit (Bld) [Volume fraction] 35.5 % Low 36 - 46 % [facility] Hemoglobin (Bld) [Mass/Vol] 12.5 g/dL 12 - 16 g/dL [facility] Interpretation and review of laboratory results Abnormal [employer]M [facility] Urinalysis with Reflex to Cu ltureon 02-01-2022 Bilirubin Urine Negative NEGATIVE [facility] [employer] Color, UA Yellow Yellow Bracketr [facility]618 Technology Glucose, Ur Negative NEGATIVE Bracketr [facility]618 Technology Ketones Ql (U) Negative NEGATIVE Bracketr [facility] [employer] Leukocyte esterase Test strip Ql (U) Negative NEGATIVE [facility] Nitrite, Urine Negative NEGATIVE [employer] [facility] [employer] pH, UA 6.5 5 - 8 [facility] [employer] Protein, UA Negative NEGATIVE [facility] [employer] Specific [place], UA 1.008 1 - 1.03 Bracketr [facility] [employer] Turbidity UA Clear Clear [facility] [employer] Urinalysis Comments Microscopic exam not performed based on chemical results unless requested in original order. [facility] [employer] Urine Hgb Negative NEGATIVE [facility] [employer] Urobilinogen, Urine Normal Normal [facility] [employer] [facility] [employer] EKG 12 leadOrdered By: Dayanna Jones on 01-23-2022 Atrial Rate 57 BPM [facility] [employer] Work Phone: P Reva 6 degrees [facility] [employer] Work Phone: P-R Interval 134 ms Bracketr [facility] [employer] Work Phone: Q-T Interval 430 ms Bracketr [facility] [employer] Work Phone: QRS Duration 92 ms Bracketr [facility] [employer] Work Phone: QTc Calculation (Bazett) 418 ms Bracketr [facility] [employer] Work Phone: R Reva -27 degrees Bracketr [facility] [employer] Work Phone: T Reva -7 degrees Bracketr [facility] [employer] Work Phone: Ventricular Rate 57 BPM [facility] [id number] [employer] Work Phone: Bracketr [facility] [employer] Work Phone: EKG 12 leadon 01-23-2022 Sinus bradycardia Low voltage QRS Borderline ECG When compared with ECG of 07-MAR-2016 09:50, No significant change was found [facility] Yevgeniy Mon MD - 01/23/2022 Sinus bradycardia Low voltage QRS Borderline ECG When compared with ECG of 07-MAR-2016 09:50, No significant change was found [facility] [employer] Work Phone: Urine cultureon 01-23-2022 Bacteria identified Cx Nom (U) NO SIGNIFICANT GROWTH FLOURNOY Morizon [facility] Specimen Description .CLEAN CATCH URINE [facility] Basic Metabolic Panel w/ Ref se to MGon 01-22-2022 Anion gap [Moles/Vol] 8 mmol/L Low 9 - 17 mmol/L [facility] Calcium [Mass/Vol] 9.5 mg/dL 8.6 - 10. 4 mg/dL [facility] Chloride [Moles/Vol] 104 mmol/L 98 - 10 7 mmol/L [facility] CO2 [Moles/Vol] 27 mmol/L 20 - 31 mmol/L [facility] Creatinine [Mass/Vol] 0.51 mg/dL 0.5 - 0.9 mg/dL [facility] GFR >60 60 - PI NF mL/min [facility] GFR Non- >60 60 - PINF mL/min [facility] GFR/1.73 sq M.predicted MDRD (S/P/Bld) [Vol rate/Area] [facility] Comment on above: Average GFR for 50-5 9 years old: 93 mL/min/1.73sq m Chronic Kidney Disease: <60 mL/min/1.73sq m Kidney failure: <15 mL/min/1.73sq m eGFR calculated using average adult body mass. Additional eGFR calculator available at: http://www.[employer]/multiple_crcl_2011.htm Glucose [Mass/Vol] 87 mg/dL 70 - 99 mg/dL [facility] Interpretation and review of laboratory results Abnormal [facility] Potassium [Moles/Vol] 4.5 mmol/L 3.7 - 5.3 mmol/L [facility] Sodium [Moles/Vol] 139 mmol/L 135 - 144 mmol/L [facility] Urea nitrogen (BldV) [Mass/Vol] 13 mg/dL 6 - 20 mg/dL [facility] CBC auto differentialon 01-05 Absolute Eos # 0.50 High [facility] Absolute Lymph # 1.50 [facility] SECO URS [facility] Absolute [place] # 0.50 [facility] Basophils (Bld) [#/Vol] 0.00 10*3/uL [facility] Basophils/100 WBC (Bld) 0 % 0 - 2 % [facility] Eosinophils/100 WBC (Bld) 6 % High 0 - 4 % [facility] Hematocrit (Bld) [Volume fraction] 42.2 % 36 - 46 % [facility] Hemoglobin (Bld) [Mass/Vol] 14.2 g/dL 12 - 16 g/dL [facility] Interpretation and review of laboratory results Abnormal [facility] Lymphocytes/100 WBC (Bld) 21 % Low 24 - 44 % [facility] MCH (RBC) [Entitic mass] 28.5 pg 26 - 34 pg [facility] MCHC (RBC) [Mass/Vol] 33.6 g/dL 31 - 3 7 g/dL [facility] MCV (RBC) [Entitic vol] 84.7 fL 80 - 100 fL [facility] Monocytes/100 WBC (Bld) 7 % 1 - 7 % [facility] Platelet distribution width (Bld) [Ratio] 13.4 % 11.5 - 14.9 % [facility] Platelet mean volume (Bld) [Entitic vol] 8.1 fL 6 - 12 fL [facility] Platelets (Bld) [#/Vol] 217 10*3/uL [facility] RBC (Bld) [#/Vol] 4.98 10*6/uL 4 - 5.2 m/uL [facility] Segmented neutrophils/100 WBC (Bld) 66 % 36 - 66 % [facility] Segs Absolute 4.70 [facility] WBC (Bld) [#/Vol] 7.1 10*3/uL [facility] No Panel Informationon 01-22 No acute cardiopulmo nary disease. [facility] CONSOLIDATED EXAMINATION: TWO XRAY VIEWS OF THE CHEST 01/22/2022 1:05 pm COMPARISON: Chest x-ray dated 22 Nov 2017 HISTORY: ORDERING SYSTEM PROVIDED HISTORY: Pre-op testing TECHNOLOGIST PROVIDED HISTORY: pre-op Reason for Exam: pre op surgery 02/01/22, no current chest complaints FINDINGS: No acute airspace infiltrate. No pneumothorax or pleural effusion. Normal cardiomediastinal silhouette. [facility] Patrick Jimenez P - 01/22/2022 EXAMINATION: TWO XRAY VIEWS OF THE CHEST 01/22/2022 1:05 pm COMPARISON: Chest x-ray dated 22 Nov 2017 HISTORY: ORDERING SYSTEM PROVIDED HISTORY: Pre-op testing TECHNOLOGIST PROVIDED HISTORY: pre-op Reason for Exam: pre op surgery 02/01/22, no current chest complaints FINDINGS: No acute airspace infiltrate. No pneumothorax or pleural effusion. Normal cardiomediastinal silhouette. IMPRESSION: No acute cardiopulmonary disease. [facility] Work Phone: Radiology Study observation (narrative) [facility] Work Phone: No Panel InformationOrdered By: Patrick Jimenez on 01-22-2022 MRO Work Phone: Serum (quantitativ e)on 01-22-2022 hCG Quant 2 NINF MRO Comment on above: Non-preg premeno <=5 Postmeno <=8 Male <=3 If HCG results do not concur with clinical observations, additional testing to confirm results is recommended. Elevated results not associated with may be found in patients with other diseases such as tumors of the germ cells (testis, ovaries, etc.), bladder, pancreas, stomach, lungs, and liver. [facility] TYPE AND SCREENon 01-22-2022 ABO/Rh Negative MRO Arm Band Number [id number] [facility] SOPATec Expiration Date 02/04/2022,2358 [place] Urinalysison 01-22-2022 Bilirubin Urine Negative NEGATIVE [facility] Color, UA Yellow Yellow MRO Glucose, Ur Negative NEGATIVE [facility]O Ketones Ql (U) Negative NEGATIVE trippiece Leukocyte esterase Test strip Ql (U) Negative NEGATIVE [facility] Nitrite, Urine Negative NEGATIVE trippiece pH, UA 6.5 5 - 8 [facility] Protein, UA Negative NEGATIVE [facility] Specific [place], UA 1.012 1 - 1.03 [facility] Turbidity UA Clear Clear [facility] Urinalysis Comments Microscopic exam not performed based on chemical results unless requested in original order. [facility] Urine Hgb Negative NEGATIVE [facility] Urobilinogen, Urine Normal Normal [facility] Microscopic Urinalysison Bacteria, UA FEW Abnormal None [facility] Casts UA 0 TO 2 /LPF [facility] Epithelial Cells UA 6 TO 9 /HPF [facility] Interpretation and review of laboratory results Abnormal [facility] RBC, UA 3 to 5 /HPF [facility] WBC, UA 3 to 5 /HPF [facility] Urinalysis with Reflex to Cu ltureon 12-27-2021 Bilirubin Urine Negative NEGATIVE [facility] Color, UA Yellow Yellow [facility] Glucose, Ur Negative NEGATIVE [facility] Interpretation and review of laboratory results Abnormal [facility] Ketones Ql (U) Negative NEGATIVE [facility] Leukocyte esterase Test strip Ql (U) MOD Abnormal NEGATIVE [facility] Nitrite, Urine Negative NEGATIVE [facility] pH, UA 6.0 [facility] Protein, UA Negative NEGATIVE [facility] Specific [place], UA 1.018 [facility] Turbidity UA Clear Clear [facility] Urine Hgb Negative NEGATIVE [facility] Urobilinogen, Urine Normal Normal [facility] JORGE FABIAN DIGITAL SCREEN BILA TERALon 12-25-2021 Unremarkable study o f the breasts. No evidence of significant interval change. BIRADS: BIRADS - CATEGORY 1 Negative, no evidence of malignancy. Normal interval follow-up is recommended in 12 months. OVERALL ASSESSMENT - NEGATIVE A letter of notification will be sent to the patient regarding the results. [employer] recommends annual mammograms for women 40 years and older. [facility] CONSOLIDATED EXAMINATION: SCREENING DIGITAL BILATERAL MAMMOGRAM WITH TOMOSYNTHESIS 12/25/2021 TECHNIQUE: Screening mammography was performed with tomosynthesis including MLO and CC views of the bilateral breasts. Computer aided detection was used for the interpretation of this exam. COMPARISON: Mammographic imaging with the most recent prior dated December 14, 2020. HISTORY: Screening. FINDINGS: There are scattered areas of fibroglandular density. There is no new dominant mass, suspicious microcalcification, or area of architectural distortion. [facility] CONSOLID[facility] Radiology Study observation (narrative) [facility] Phone: [facility] FABIAN DIGITAL SCREEN BILA TERALOrdered By: Glory Joy on 12-25-2021 [facility] Phone: Free T3on 11-29-2021 FT3 6.51 pg/mL High 2.00-4.40 [facility] [employer] Comment on above: Performed By: #### F T3, TSH, FT4 #### [facility] [address], [place] [id number] Free T4on 11-29-2021 Free T4 [Mass/Vol] 1.24 ng/dL Normal 0.80-1.80 [facility] [employer] Comment on above: Performed By: #### F T3, TSH, FT4 #### [facility] [address], [place] [id number] TSHon 11-29-2021 TSH 1.100 uIU/mL Normal 0.400-4.500 [facility] [employer] Comment on above: Performed By: #### F T3, TSH, FT4 #### [facility] [address], [place] [id number] Free T3on 10-23-2021 FT3 2.10 pg/mL Normal 2.00-4.40 [facility] [employer] Comment on above: Performed By: #### F T3, TSH, FT4 #### [facility] [address], [place] [id number] Free T4on 10-23-2021 Free T4 [Mass/Vol] 0.59 ng/dL Low 0.80-1.80 Valerie [place] [place] [employer] Comment on above: Performed By: #### F T3, TSH, FT4 #### [facility] [address], [place] [id number] Q - T3 TOTALon 10-23-2021 T3, TOTAL 84 ng/dL Normal 76-181 [facility] [employer] Comment on above: Order Comment: Quest performed at: [facility], [email or web address] [facility], [address], [address] [facility], [place], [address], [employer] Operator: Roque Guerrero MDQuest Collection Date/Time: [id number] Results Received Date/Time: [id number] Reported Date/Time: FASTING: NO Performed By: #### F T3, TSH, FT4 #### [facility] [address] [place], [place] [id number] Q - T3,REVERSE,LC/MS/MSon T3 REVERSE, LC/MS/MS 6 ng/dL Low 8-25 [facility] Comment on above: Order Comment: Quest performed at: [facility] [email or web address]/[facility], [address] [facility] [place] , [place], [place], , [employer] D[employer] Operator: Kale Leon M.D.,PhDQuest Collection Date/Time: [id number] Results Received Date/Time: [id number] Reported Date/Time: FASTING: NO Result Comment: This test was developed and its analytical performance characteristics have been determined by [email or web address] [place], [place]. It has not been cleared or approved by the U.S. Food and Drug Administration. This assay has been validated pursuant to the CLIA regulations and is used for clinical purposes. Performed By: #### F T3, TSH, FT4 #### [facility] [address] [place], [place] [id number] TSHon 10-23-2021 TSH 165.300 uIU/mL High 0.400-4.500 [facility] Specialist Comment on above: Performed By: #### F T3, TSH, FT4 #### [facility] [address], [place] [id number] Basic Metabolic Panelon 01-0 Anion gap [Moles/Vol] 18 mmol/L Normal 12-20 [facility] [place] [employer] Comment on above: Result Comment: Effe ctive 07/13/2019 reference range changed. Performed By: #### C RP, CK, TSH, FT4, FT3, ESR, CBCAD, BMP #### [facility] [address], [place] [id number] Calcium [Mass/Vol] 9.9 mg/dL Normal 8.6-10.2 [facility] Comment on above: Performed By: #### C RP, CK, TSH, FT4, FT3, ESR, CBCAD, BMP #### [facility] [address], [place] [id number] Chloride [Moles/Vol] 107 mmol/L Normal 98-107 [facility] Comment on above: Performed By: #### C RP, CK, TSH, FT4, FT3, ESR, CBCAD, BMP #### [facility] [address], [place] [id number] CO2 [Moles/Vol] 23 mmol/L Normal 20-31 [facility] Comment on above: Performed By: #### C RP, CK, TSH, FT4, FT3, ESR, CBCAD, BMP #### [facility] [address], [place] [id number] Creatinine [Mass/Vol] 0.7 mg/dL Normal 0.6-1.4 [facility] Comment on above: Performed By: #### C RP, CK, TSH, FT4, FT3, ESR, CBCAD, BMP #### [facility] [address], [place] [id number] eGFRAA 108 mL/min/1.73m2 Normal >60 [facility] Comment on above: Performed By: #### C RP, CK, TSH, FT4, FT3, ESR, CBCAD, BMP #### [facility] [address], [place] [id number] eGFRNAA 89 mL/min/1.73m2 Normal >60 [facility] Comment on above: Performed By: #### C RP, CK, TSH, FT4, FT3, ESR, CBCAD, BMP #### [facility] [address], [place] [id number] Glucose [Mass/Vol] 86 mg/dL Normal 65-99 Valerie tyson [place] [employer] Comment on above: Result Comment: For FASTING Glucose --- ADA reference ranges: Normal 65-99 mg/dl Prediabetes 100-125 Diabetes >/= 126 Performed By: #### C RP, CK, TSH, FT4, FT3, ESR, CBCAD, BMP #### [facility] [address], [place] [id number] Potassium [Moles/Vol] 4.5 mmol/L Normal 3.5-5.[address] [facility] Specialist Comment on above: Performed By: #### C RP, CK, TSH, FT4, FT3, ESR, CBCAD, BMP #### [facility] [address], [place] [id number] Sodium [Moles/Vol] 143 mmol/L Normal 135-146 [facility] [employer] Comment on above: Performed By: #### C RP, CK, TSH, FT4, FT3, ESR, CBCAD, BMP #### [facility] [address], [place] [id number] Urea nitrogen [Mass/Vol] 13 mg/dL Normal 7-25 [facility] [employer] Comment on above: Performed By: #### C RP, CK, TSH, FT4, FT3, ESR, CBCAD, BMP #### [facility] [address], [place] [id number] C-Reactive Proteinon 022 CRP IV 1.2 mg/dl Normal <5.0 [facility] Specialist Comment on above: Performed By: #### C RP, CK, TSH, FT4, FT3, ESR, CBCAD, BMP #### [facility] [address], [place] [id number] Complete Blood Count with Au to Diffon 07-12-2021 Basophils (Bld) [#/Vol] 0.02 10*3/uL Normal 0.00-0.20 [facility] Specialist Comment on above: Performed By: #### C RP, CK, TSH, FT4, FT3, ESR, CBCAD, BMP #### [facility] [address], [place] [id number] Basophils/100 WBC (Bld) 0.3 % Normal [facility] Specialist Comment on above: Performed By: #### C RP, CK, TSH, FT4, FT3, ESR, CBCAD, BMP #### [facility] [address], [place] [id number] Eosinophils (Bld) [#/Vol] 0.69 10*3/uL High 0.02-0.50 [facility] Specialist Comment on above: Performed By: #### C RP, CK, TSH, FT4, FT3, ESR, CBCAD, BMP #### [facility] [address], [place] [id number] Eosinophils/100 WBC (Bld) 9.2 % Normal [facility] Specialist Comment on above: Performed By: #### C RP, CK, TSH, FT4, FT3, ESR, CBCAD, BMP #### [facility] [address], [place] [id number] Erythrocyte distribution width (RBC) [Ratio] 12.2 % Normal 11.0-15.0 [facility] Specialist Comment on above: Performed By: #### C RP, CK, TSH, FT4, FT3, ESR, CBCAD, BMP #### [facility] [address], [place] [id number] Hematocrit (Bld) [Volume fraction] 40.9 % Normal 35.0-47.0 [facility] Specialist Comment on above: Performed By: #### C RP, CK, TSH, FT4, FT3, ESR, CBCAD, BMP #### [facility] [address], [place] [id number] Hemoglobin (Bld) [Mass/Vol] 13.5 g/dL Normal 11.6-15.5 [facility] Specialist Comment on above: Performed By: #### C RP, CK, TSH, FT4, FT3, ESR, CBCAD, BMP #### [facility] [address], [place] [id number] Lymphocytes (Bld) [#/Vol] 1.4 10*3/uL Normal 0.9-3.9 [facility] Specialist Comment on above: Performed By: #### C RP, CK, TSH, FT4, FT3, ESR, CBCAD, BMP #### [facility] [address], [place] [id number] Lymphocytes/100 WBC (Bld) 18.1 % Normal [facility] Comment on above: Performed By: #### C RP, CK, TSH, FT4, FT3, ESR, CBCAD, BMP #### [facility] [address], [place] [id number] MCH (RBC) [Entitic mass] 28.6 pg Normal 27.0-33.0 [facility] Comment on above: Performed By: #### C RP, CK, TSH, FT4, FT3, ESR, CBCAD, BMP #### [facility] [address], [place] [id number] MCHC (RBC) [Mass/Vol] 33.0 g/dL Normal 32.0-36.0 [facility] Comment on above: Performed By: #### C RP, CK, TSH, FT4, FT3, ESR, CBCAD, BMP #### [facility] [address], [place] [id number] MCV (RBC) [Entitic vol] 87 fL Normal 80-100 [facility] Comment on above: Performed By: #### C RP, CK, TSH, FT4, FT3, ESR, CBCAD, BMP #### [facility] [address], [place] [id number] Monocytes (Bld) [#/Vol] 0.7 10*3/uL Normal 0.2-0.9 [facility] Comment on above: Performed By: #### C RP, CK, TSH, FT4, FT3, ESR, CBCAD, BMP #### [facility] [address], [place] [id number] Monocytes/100 WBC (Bld) 8.7 % Normal [facility] Comment on above: Performed By: #### C RP, CK, TSH, FT4, FT3, ESR, CBCAD, BMP #### [facility] [address], [place] [id number] Neutrophils (Bld) [#/Vol] 4.7 10*3/uL Normal 1.5-7.8 [facility] Specialist Comment on above: Performed By: #### C RP, CK, TSH, FT4, FT3, ESR, CBCAD, BMP #### [facility] [address], [place] [id number] Neutrophils/100 WBC (Bld) 63.3 % Normal [facility] Comment on above: Performed By: #### C RP, CK, TSH, FT4, FT3, ESR, CBCAD, BMP #### [facility] [address], [place] [id number] Platelet mean volume (Bld) [Entitic vol] 10.00 fL Normal 7.50-12.50 [facility] Comment on above: Performed By: #### C RP, CK, TSH, FT4, FT3, ESR, CBCAD, BMP #### [facility] [address], [place] [id number] Platelets (Bld) [#/Vol] 267 10*3/uL Normal 140-400 [facility] Comment on above: Performed By: #### C RP, CK, TSH, FT4, FT3, ESR, CBCAD, BMP #### [facility] [address], [place] [id number] RBC (Bld) [#/Vol] 4.72 10*6/uL Normal 3.90-5.20 [facility] Comment on above: Performed By: #### C RP, CK, TSH, FT4, FT3, ESR, CBCAD, BMP #### [facility] [address], [place] [id number] RDW-SD 39.2 fL Normal 37.0-50.0 [facility] Specialist Comment on above: Performed By: #### C RP, CK, TSH, FT4, FT3, ESR, CBCAD, BMP #### [facility] [address], [place] [id number] WBC (Bld) [#/Vol] 7.5 10*3/uL Normal 3.8-11.0 [facility] Comment on above: Performed By: #### C RP, CK, TSH, FT4, FT3, ESR, CBCAD, BMP #### [facility] [address], [place] [id number] Creatine Kinaseon 07-12-2021 CK [Catalytic activity/Vol] 16 U/L Low 26-192 [facility] Specialist Comment on above: Performed By: #### C RP, CK, TSH, FT4, FT3, ESR, CBCAD, BMP #### [facility] [address], [place] [id number] Free T3on 07-12-2021 FT3 3.04 pg/mL Normal 2.00-4.40 [facility] Specialist Comment on above: Performed By: #### C RP, CK, TSH, FT4, FT3, ESR, CBCAD, BMP #### [facility] [address], [place] [id number] Free T4on 07-12-2021 Free T4 [Mass/Vol] 1.29 ng/dL Normal 0.80-1.80 [facility] Specialist Comment on above: Performed By: #### C RP, CK, TSH, FT4, FT3, ESR, CBCAD, BMP #### [facility] [address], [place] [id number] RBC Sedimentation Rateon ESR (Bld) [Velocity] 10.00 mm/h Normal 0.00-30.00 [facility] Specialist Comment on above: Performed By: #### F T3, TSH, FT4 #### [facility] [address], [place] [id number] TSHon 07-12-2021 TSH 13.040 uIU/mL High 0.400-4.500 [facility] Specialist Comment on above: Performed By: #### C RP, CK, TSH, FT4, FT3, ESR, CBCAD, BMP #### [facility] [address], [place] [id number] JORGE FABIAN DIGITAL SCREEN SELF REFERRAL W OR WO CAD BILATERALOrdered By: Rose Brothers on 12-14-2020 No mammographic evid ence to suggest malignancy. No evidence of significant interval change. BIRADS: BIRADS - CATEGORY 1 Negative, no evidence of malignancy. Normal interval follow-up is recommended in 12 months. OVERALL ASSESSMENT - NEGATIVE A letter of notification will be sent to the patient regarding the results. [employer] recommends annual mammograms for women 40 years and older. [employer] Phone: EXAMINATION: SCREENI NG DIGITAL BILATERAL MAMMOGRAM WITH TOMOSYNTHESIS 12/14/2020 TECHNIQUE: Screening mammography of the bilateral breasts was performed with tomosynthesis. 2D standard and 3D tomosynthesis combination imaging performed through both breasts in the MLO and CC projection. Computer aided detection was utilized in the interpretation of this exam. COMPARISON: Mammographic imaging with the most recent prior dated August 11, 2018. HISTORY: Screening. FINDINGS: There are scattered areas of fibroglandular density. There is no new dominant mass, suspicious microcalcification, or area of architectural distortion. [employer] Phone: [employer] Phone: T3, FreeOrdered By: Candy cheek on 06-15-2019 Free T3 [Mass/Vol] 2.83 pg/mL 2.02 - 4. 43 pg/mL [employer] Phone: T4, FreeOrdered By: Candy cheek on 06-15-2019 Thyroxine, Free 1.17 ng/dL 0.93 - 1.7 ng/dL [employer] Phone: TSH without ReflexOrdered By : Candy Gee on 06-15-2019 Interpretation and review of laboratory results Abnormal [employer] Phone: TSH Qn 35.69 m[IU]/L High [employer] Work Phone: Coding Summaryon 07-25-2017 Coding Summary CODING DATE: 018 [facility] STATUS: Home PAYOR: [employer] DESCRIPTION 5521 Level 1 Imaging without Contrast ADMIT DX: REASON FOR VISIT DX: M25.522 Pain in left elbow FINAL DX: PRINCIPAL: M25.522 Pain in left elbow SECONDARY: PYMT PROC APC STAT DESCRIPTION DOCTOR NAME DATE NOTE: The code number assigned matches the documented diagnosis and / or procedure in the patient's chart. However, the narrative phrase printed from the coding software may appear abbreviated, or result in slightly different terminology. Coded By: Shahla Nguyen Date Saved: 07/25/2017 01:15 pm [facility] [place] Provider Orderson 07-24-2017 Provider Orders [id number] IFF [facility] XR Elbow Complete Lefton XR Elbow Complete Left ELBOW COMPLETE LEFTCLINICAL DATA: Elbow pain since this morningFour views of the left elbow were obtained. Anterior fat pad isunremarkable, no evidence of posterior fat pad is seen. No definite acutefracture or dislocation is seen. No significant focal osseous or articularabnormalities are identified. There is a small faint calcific densitymeasuring approximately 2.5 x 0.5 mm adjacent to the proximal portion of theulna medially, of uncertain etiology and significance. There is a tinydegenerative spur about the tip of the coronoid process of the ulna. Nosignificant soft tissue swelling.IMPRESSION:1. LEFT ELBOW STUDY FAILS TO DEMONSTRATE DEFINITE ACUTE FRACTURE ORDISLOCATION.2. THERE IS A TINY CALCIFIC DENSITY ALONG THE MEDIAL ASPECT OF THE PROXIMALULNA OF UNCERTAIN ETIOLOGY AND SIGNIFICANCE. FOLLOW-UP NEEDED.Alistair Lockett MDJOLisset #: [id number]: 07/23/2017T: 07/23/2017 Final Dictated by: Alistair Lockett MD SDictated DT/TM: 07/23/17 6:10Signed (Electronic Signature): Alistair Lockett MD 07/23/17 10:51 aTechnologist: TL [facility] Vital Signs Date Time Vital Sign Value Performing Clinician Facility 08-15-2023 10:35-0500 Body mass index (BMI) [Ratio] 31.24 kg/m2 Cadny PRUITT Work Phone: [facility] 08-15-2023 10:35-0500 Body weight 82.56 kg Candy PRUITT Work Phone: [facility] 08-15-2023 10:35-0500 Diastolic blood pressure 84 mm[Hg] Candy PRUITT Work Phone: [facility] 08-15-2023 10:35-0500 Heart rate 54 /min Candy Hemmer PA Work Phone: [facility] 08-15-2023 10:35-0500 Respiratory rate 16 /min Candy Hemmer PA Work Phone: [facility] 08-15-2023 10:35-0500 SaO2% (BldA) [Mass fraction] 99 % Candy Teresamer PA Work Phone: [facility] 08-15-2023 10:35-0500 Systolic blood pressure 132 mm[Hg] Candy Teresamer PA Work Phone: [facility] 02-02-2022 07:00-0400 Body temperature 98.2 [degF] Ino Zev DO Work Phone: [facility] 02-02-2022 07:00-0400 Diastolic blood pressure 70 mm[Hg] Ino Brothers DO Work Phone: [facility] [email or web address] 02-02-2022 07:00-0400 Heart rate 66 /min Ino Brothers DO Work Phone: [facility] 02-02-2022 07:00-0400 Respiratory rate 16 /min Ino Brothers DO Work Phone: [facility] 02-02-2022 07:00-0400 Systolic blood pressure 124 mm[Hg] Ino Brothers Work Phone: [facility] 02-02-2022 02:50-0400 SaO2% (BldA) [Mass fraction] 94 % Ino Cadenabaum DO Work Phone: [facility] 02-01-2022 06:23-0400 Body height 162.6 cm Ino Brothers Work Phone: [facility] 02-01-2022 06:23-0400 Body mass index (BMI) [Ratio] 34.16 kg/m2 Ino Brothers Work Phone: [facility] 02-01-2022 06:23-0400 Body weight 90.27 kg Ino Brothers DO [facility] [employer] 01-22-2022 12:11-0400 Body height 162.6 cm Stcz 2 [facility] [employer] 01-22-2022 12:11-0400 Body mass index (BMI) [Ratio] 34.16 kg/m2 Stcz 2 [facility] 01-22-2022 12:11-0400 Body temperature 97.7 [degF] Stcz 2 [facility] [employer] 01-22-2022 12:11-0400 Body weight 90.27 kg Stcz 2 [facility] 01-22-2022 12:11-0400 Diastolic blood pressure 77 mm[Hg] Stcz 2 [facility] [employer] 01-22-2022 12:11-0400 Heart rate 63 /min Stcz 2 [facility] 01-22-2022 12:11-0400 Respiratory rate 16 /min Stcz 2 [facility] [employer] 01-22-2022 12:11-0400 SaO2% (BldA) [Mass fraction] 100 % Stcz [facility] 01-22-2022 12:11-0400 Systolic blood pressure 131 mm[Hg] Stcz 2 [facility] 09-29-2021 10:35-0400 Body temperature 97.5 [degF] Constantine Sanchez MD Work Phone: [employer] 09-29-2021 10:35-0400 Diastolic blood pressure 58 mm[Hg] Constantine Sanchez MD Work Phone: [employer] 09-29-2021 10:35-0400 Heart rate 58 /min Constantine Sanchez MD Work Phone: [employer] 09-29-2021 10:35-0400 Respiratory rate 12 /min Constantine Sanchez MD Work Phone: [employer] 09-29-2021 10:35-0400 SaO2% (BldA) [Mass fraction] 98 % Constantine Sanchez MD Work Phone: [employer] 09-29-2021 10:35-0400 Systolic blood pressure 92 mm[Hg] Constantine Sanchez MD Work Phone: [employer] 09-29-2021 07:46-0400 Body height 160 cm Constantine Sanchez MD Work Phone: [facility] [employer] 09-29-2021 07:46-0400 Body mass index (BMI) [Ratio] 34.37 kg/m2 Constantine Sanchez MD Work Phone: [facility] [employer] 09-29-2021 07:46-0400 Body weight 88 kg Constantine Sanchez MD Work Phone: [facility] 09-15-2021 10:28-0500 Body height 160 cm Stcz 3 [facility] Encounters Encounter Date Encounter Type Care Provider Facility Start: 05-20-2024 End: 05-20-2024 ambulatory [facility] Start: 04-24-2024 End: 04-26-2024 ambulatory SAMANTHA WEAVER [facility] Start: 04-24-2024 End: 04-26-2024 Subsequent hospital visit by physician [facility] Mammography Comment on above: Encounter for screen ing mammogram for malignant neoplasm of breast Start: 03-31-2024 End: 03-31-2024 ambulatory CANDY GEE Not Available Start: 02-12-2024 End: 02-12-2024 ambulatory ALEJANDRO CEBALLOS Not Available Start: 08-15-2023 Bamboo flowsheet Candy Farr r PA Work Phone: [facility] Start: 08-15-2023 Bamboo flowsheet Candy Farr r PA Work Phone: [facility] Start: 08-15-2023 End: 08-15-2023 Patient encounter status Candy PRUITT Work Phone: [facility] Work Phone: Start: 08-15-2023 End: 08-15-2023 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 Candy PRUITT Work Phone: [facility] Comment on above: Wellness examination (Primary Dx); Cervical radiculopathy; Median neuropathy of both upper extremities; Occipital neuralgia, unspecified laterality; Other chronic pain; Sleep disorder due to a general medical condition, mixed type; Hiatal hernia; Palpitation; Polyp of colon, unspecified part of colon, unspecified type; Diverticulosis of colon; Eosinophilic esophagitis; Gastric mass; History of gastric ulcer; Irritable bowel syndrome with diarrhea; Schatzki's ring of distal esophagus; [place]-Walker grade 3 cystocele; Cystocele, midline; Enlarged uterus; Fibroids, submucosal; History of nephrolithiasis; Overflow incontinence; Cervical spondylosis without myelopathy; Fibromyalgia; Inflammatory polyarthropathy (CMS/HCC); Localized osteoarthritis of right knee; Pain and swelling of right knee; Primary osteoarthritis involving multiple joints; Spondylosis of lumbosacral 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thy; 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 or radiculopathy; Acquired hypothyroidism (CMS/HCC); ESS (euthyroid sick syndrome); Wanda's disease (CMS/HCC); Left ovarian cyst; Non morbid obesity due to excess calories; Vitamin B-complex deficiency; Vitamin D deficiency; Other specified disorders involving the immune mechanism, 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); Abdominal bloating; Bruises easily; Chronic fatigue; Family history of breast cancer; H/O tubal ligation; Hypokalemia; Lipoprotein deficiency disorder (CMS/HCC); S/P endometrial ablation; Sciatica, unspecified laterality; Seasonal allergic rhinitis due to pollen; Tubular adenoma; Vision abnormalities Start: 08-15-2023 End: 08-15-2023 ambulatory CANDY GEE Not Available Start: 08-14-2023 Chart abstracting Candy PRUITT Work Phone: [facility] Start: 07-10-2023 End: 07-10-2023 ambulatory CANDY GEE Not Available Start: 11-21-2022 End: 11-22-2022 ambulatory CANDY GEE [facility] Start: 07-24-2022 End: 07-25-2022 ambulatory CANDY GEE [facility] Start: 03-20-2022 End: 03-22-2022 Subsequent hospital visit by physician Austin Hopson Rm [facility] [place] [facility] Mammography Comment on above: Post-menopausal Start: 02-01-2022 End: 02-02-2022 Evaluation and management of inpatient Ino Haro Zev DO Work Phone: [facility] Labor & Delivery Comment on above: Cystocele, unspecifi ed (CODE) Start: 01-22-2022 End: 01-24-2022 Subsequent hospital visit by physician Austin Xr Room 4 [facility] [place] [facility] Radiology Comment on above: Arrived Start: 01-22-2022 End: 01-26-2022 Patient encounter status [facility] 2 ST Pre-Admit Testing Start: 01-22-2022 End: 01-26-2022 Subsequent hospital visit by physician Mamta Jeronimo 2 [facility] Pre-Admit Testing Comment on above: Pre-op testing Start: 12-27-2021 End: 12-27-2021 Subsequent hospital visit by physician Candy Gee Work Phone: Laboratory Comment on above: Overflow incontinenc e Start: 12-25-2021 End: 12-27-2021 Subsequent hospital visit by physician Austin Olson Mammo Rm 119 [facility] [place] [facility] Mammography Comment on above: Encounter for screen ing mammogram for malignant neoplasm of breast Start: 09-29-2021 End: 09-29-2021 Subsequent hospital visit by physician Constantine Sanchez MD Work Phone: ENDO Start: 09-25-2021 End: 09-25-2021 Patient encounter status Stcz Schedule [facility] Covid Scre ening Start: 09-25-2021 End: 09-25-2021 Subsequent hospital visit by physician Mamta Covid Screening Schedule [facility]NALILIA Covid Screening Comment on above: Pre-op testing (Prim jane Dx) Start: 09-15-2021 End: 09-19-2021 Subsequent hospital visit by physician Mamta Jeronimo 3 [facility] Pre-Admit Testing Start: 12-14-2020 End: 12-16-2020 Subsequent hospital visit by physician Austin Olson Mammo Rm 119 [facility] [place] [facility] Mammography Comment on above: Visit for screening mammogram Start: 06-15-2019 End: 06-15-2019 Subsequent hospital visit by physician Candy Gee Work Phone: [facility] Laboratory Start: 07-23-2017 End: 07-23-2017 Ambulatory CANDY GEE Facility:[facility] Procedures Date Procedure Procedure Detail Performing Clinician Start: 04-12-2023 Mammography Candy Malickalis PRUITT Work Phone: Start: 11-21-2022 Microscopic observat ion [Identifier] in Cervix by Cyto stain Candy PRUITT Work Phone: Start: 03-20-2022 Dxa bone density faye dy 1/> sites axial skel Ino Brothers DO Work Phone: Start: 02-01-2022 Blood count hemoglobin Margarito Saldivar MD Work Phone: Start: 02-01-2022 Urnls dip stick/tabl et rgnt auto w/o microscopy Margarito Saldivar MD Work Phone: Start: 02-01-2022 End: 02-01-2022 Anterior colporraphy rpr cystocele w/cysto Ino Brothers DO Work Phone: Start: 01-22-2022 Antibody screen [facility] 2 Start: 01-22-2022 Culture bacterial quanttative colony count urine Ino Brothers DO Work Phone: Start: 01-22-2022 Urnls dip stick/tabl et rgnt auto w/o microscopy Ino Brothers DO Work Phone: Start: 01-22-2022 Radiologic exam ches t 2 views Ino Brothers DO Work Phone: Start: 01-22-2022 Ecg routine ecg w/le ast 12 lds i&r only Ino Brothers DO Work Phone: Start: 01-22-2022 BASIC METABOLIC PANE L W/ REFLEX TO MG FOR LOW K Ino Brothers DO Work Phone: Start: 01-22-2022 Blood typing serolog ic abo Ino Brothers DO Work Phone: Start: 01-22-2022 Gonadotropin chorion ic quantitative Ino Brothers DO Work Phone: Start: 12-27-2021 Urinalysis microscop ic only Ino Brothers DO Work Phone: Start: 12-27-2021 Urnls dip stick/tabl et rgnt auto w/o microscopy Ino Brothers DO Work Phone: Start: 12-25-2021 Screening mammograph y bi 2-view breast inc cad Ino Brothers DO Work Phone: Start: 11-23-2021 Microscopic observat ion [Identifier] in Cervix by Cyto stain Candy Gee Work Phone: Start: 09-29-2021 Colonoscopy Constantine toscano MD Work Phone: Start: 12-14-2020 Screening mammograph y bi 2-view breast inc cad Rose Analia Zev DO Work Phone: Start: 06-15-2019 Assay of free thyroxine Candy Gee Work Phone: Start: 07-28-2018 Microscopic observat ion [Identifier] in Cervix by Cyto stain [facility] 3 Start: 01-20-2018 Colonoscopy [facility] 3 Start: 11-17-2015 H/O: tubal ligation H/O tubal ligati on Candy Ofelia Work Phone: H/O: tubal ligation H/O tubal ligation Ka roland PRUITT Work Phone: Plan of Treatment Date Care Activity Detail Author Start: 01-21-2028 Screening for malignant neoplasm of colon [facility] Start: 11-22-2027 Screening for malignant neoplasm of cervix [facility] Start: 11-21-2025 Screening for malignant neoplasm of cervix Pap Smear [facility] Start: 09-05-2025 [facility]id [facility] Start: 04-12-2025 Screening for malignant neoplasm of breast [facility] Start: 11-24-2024 Depression Screen [facility] Start: 11-24-2024 End: 11-24-2024 Patient encounter procedure 11/24/2024 9:00 AM EDT Office Visit [place] [facility] [address] [facility] [address] [place] [id number] Samantha Weaver APRN - CNP [address] [facility] [address] [place] [address] annual [facility] Obstetrics & Gynecology Comment on above: annual Start: 11-23-2024 Screening for malignant neoplasm of cervix [facility] Start: 09-29-2024 Screening for malignant neoplasm of colon [facility] Start: 04-12-2024 Screening for malignant neoplasm of breast Mammogram [facility] Start: 03-08-2024 COVID-19 Vaccine () COVID-19 Vaccine () [facility] Start: 02-13-2024 End: 02-13-2024 Patient encounter procedure 02/13/2024 10:00 AM EDT Office Visit [facility] [address] [facility] [address] [place] [id number] Candy Gee PA [address] [facility] [address] [place] [address] [facility] Start: 02-06-2024 Influenza vaccination Flu vaccine (#1) [facility] Start: 01-22-2024 DTaP/Tdap/Td vaccine (2 - Td or Tdap) DTaP/Tdap/Td vaccine (2 - Td or Tdap) [facility] Start: 12-26-2023 Screening for malignant neoplasm of breast Breast cancer screen [facility] Start: 09-26-2023 End: 08-15-2024 Triiodothyronine (T3) Free [Mass/volume] in Serum or Plasma T3, free Lab Routine Acquired hypothyroidism (CMS/HCC) 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) Expected: 09/26/2023 (Approximate), Expires: 08/15/2024 [facility] Comment on above: Expected: 09/26/2023 (Approximate), Expi res: 08/15/2024 Start: 09-19-2023 End: 08-15-2024 Thyrotropin [Units/volume] in Serum or Plasma TSH Lab Routine Acquired hypothyroidism (CMS/HCC) 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) Expected: 09/19/2023 (Approximate), Expires: 08/15/2024 [facility] Comment on above: Expected: 09/19/2023 (Approximate), Expi res: 08/15/2024 Start: 09-19-2023 End: 08-15-2024 Thyroxine (T4) free [Mass/volume] in Serum or Plasma T4, free Lab Routine Acquired hypothyroidism (CMS/HCC) 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) Expected: 09/19/2023 (Approximate), Expires: 08/15/2024 [facility] Comment on above: Expected: 09/19/2023 (Approximate), Expi res: 08/15/2024 Start: 08-15-2023 End: 08-15-2024 25-hydroxyvitamin D3 [Mass/volume] in Serum or Plasma Vitamin D 25 hydroxy Lab Routine Wellness examination Vitamin D deficiency Expected: 08/15/2023 (Approximate), Expires: 08/15/2024 [facility] Comment on above: Expected: 08/15/2023 (Approximate), Expi res: 08/15/2024 Start: 08-15-2023 End: 08-15-2024 CBC W Auto Differential panel - Blood CBC and differential Lab Routine Wellness examination Other specified disorders involving the immune mechanism, not elsewhere classified ([facility]) Bruises easily Chronic fatigue Expected: 08/15/2023 (Approximate), Expires: 08/15/2024 [facility] Work Phone: Comment on above: Expected: 08/15/2023 (Approximate), Expi res: 08/15/2024 Start: 08-15-2023 End: 08-15-2024 Cobalamin (Vitamin B12) [Mass/volume] in Serum or Plasma Vitamin B12 Lab Routine Wellness examination Vitamin B-complex deficiency Expected: 08/15/2023 (Approximate), Expires: 08/15/2024 [facility] Comment on above: Expected: 08/15/2023 (Approximate), Expi res: 08/15/2024 Start: 08-15-2023 End: 08-15-2024 Comprehensive metabolic 2000 panel - Serum or Plasma Comprehensive metabolic panel Lab Routine Wellness examination Chronic fatigue Hypokalemia Lipoprotein deficiency disorder (CMS/HCC) Expected: 08/15/2023 (Approximate), Expires: 08/15/2024 [facility] Comment on above: Expected: 08/15/2023 (Approximate), Expi res: 08/15/2024 Start: 08-15-2023 End: 08-15-2024 Lipid 1996 panel - Serum or Plasma Lipid panel Lab Routine Wellness examination Lipoprotein deficiency disorder (CMS/HCC) Expected: 08/15/2023 (Approximate), Expires: 08/15/2024 [facility] Comment on above: Expected: 08/15/2023 (Approximate), Expi res: 08/15/2024 Start: 08-15-2023 End: 08-15-2024 Thyrotropin [Units/volume] in Serum or Plasma TSH Lab Routine Wellness examination Acquired hypothyroidism (CMS/HCC) 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) Expected: 08/15/2023 (Approximate), Expires: 08/15/2024 [facility] Comment on above: Expected: 08/15/2023 (Approximate), Expi res: 08/15/2024 Start: 08-15-2023 End: 08-15-2024 Thyroxine (T4) free [Mass/volume] in Serum or Plasma T4, free Lab Routine Wellness examination Acquired hypothyroidism (CMS/HCC) 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) Expected: 08/15/2023 (Approximate), Expires: 08/15/2024 [facility] Comment on above: Expected: 08/15/2023 (Approximate), Expi res: 08/15/2024 Start: 08-15-2023 End: 08-15-2024 Triiodothyronine (T3) Free [Mass/volume] in Serum or Plasma T3, free Lab Routine Wellness examination Acquired hypothyroidism (CMS/HCC) 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) Expected: 08/15/2023 (Approximate), Expires: 08/15/2024 [facility] Comment on above: Expected: 08/15/2023 (Approximate), Expi res: 08/15/2024 Start: 08-15-2023 End: 08-15-2023 Patient encounter procedure [facility] Comment on above: Arrived Start: 07-28-2023 Screening for malignant neoplasm of cervix [facility] Start: 03-08-2023 Influenza vaccination Influenza Vaccine (#1) [facility] Start: 12-14-2022 Screening for malignant neoplasm of breast Breast cancer screen [facility] Start: 2022 Respiratory Syncytial Virus (RSV) or age 60 yrs+ (1 - 1-dose 60+ series) Respiratory Syncytial Virus (RSV) or age 60 yrs+ (1 - 1-dose 60+ series) [facility] Start: 07-24-2022 End: 07-24-2022 Patient encounter procedure 07/24/2022 Office Visit Obstetrics and Gynecology Ino Brothers, [address] [place] [address], [place] [address] [facility] Obstetrics & Gynecology Start: 06-22-2022 End: 06-22-2022 Patient encounter procedure 06/22/2022 Office Visit Urology Samy Resendez MD [address] [place] [address] [facility] [place] [facility] Start: 03-08-2022 Influenza vaccination [facility] Start: 02-20-2022 End: 02-20-2022 Patient encounter procedure 02/20/2022 Office Visit Obstetrics and Gynecology Ino Brothers, [address] [place] [address], [place] [address] [facility] Obstetrics & Gynecology Start: 02-01-2022 End: 02-01-2022 Admission to same day surgery center 02/01/2022 Surgery IP Unit Ino Brothers, [address] [place] [address] VAGINAL ANTERIOR REPAIR [facility] Comment on above: VAGINAL ANTERIOR REPAIR Start: 02-01-2022 End: 02-01-2022 Anterior colporraphy rpr cystocele w/cysto VAGINAL ANTERIOR REPAIR Cystocele, unspecified (CODE) 02/01/2022 8:00 AM EDT [facility] Start: 02-01-2022 Subsequent hospital visit by physician 02/01/2022 Hospital Encounter IP Unit Ino Brothers DO [address] [facility], [address] [place] [address] [facility] OR Start: 12-29-2021 End: 12-29-2021 Patient encounter procedure 12/29/2021 Office Visit Urology Samy Resendez MD [address] [place] [address] [facility] [place] [facility] Start: 09-29-2021 End: 09-29-2021 Admission to same day surgery center 09/29/2021 Surgery Endoscopy Constantine Sanchez MD [address] [facility], [address] [place] [address] EGD [facility] Comment on above: EGD Start: 09-29-2021 End: 09-29-2021 Colonoscopy flx dx w/collj spec when pfrmd [facility] Start: 09-29-2021 End: 09-29-2021 Esophagogastroduodenoscopy transoral diagnostic [facility] Start: 09-29-2021 Subsequent hospital visit by physician 09/29/2021 Hospital Encounter Endoscopy Constantine Sanchez MD [address] [facility] [place], [place] [id number] [facility] Start: 09-25-2021 End: 09-22-2022 COVID-19 [facility] Work Phone: Comment on above: Expected: 09/25/2021, Expires: 3 Once for 1 Occurrenc es starting 09/25/2021 until 09/25/2021 Start: 09-25-2021 End: 09-25-2021 Patient encounter procedure 09/25/2021 Appointment Lab [facility] Covid Screening Start: 07-28-2021 Screening for malignant neoplasm of cervix Pap smear [facility] Start: 03-08-2021 Influenza vaccination [facility] Start: 01-20-2021 Colon cancer screen colonoscopy Colon cancer screen colonoscopy [facility] Phone: Start: 01-20-2021 Screening for malignant neoplasm of colon [facility] Start: 08-11-2020 Breast cancer screen Breast cancer screen [facility] Phone: Start: 06-15-2020 Thyroid stimulating hormone measurement TSH testing [facility] Start: 01-15-2020 TSH testing TSH testing [facility] Phone: Start: 07-28-2019 Cervical cancer screen Cervical cancer screen [facility] Phone: Start: 07-28-2019 Screening for malignant neoplasm of cervix Cervical cancer screen [facility] Phone: Start: 03-08-2019 Influenza vaccination Flu vaccine (#1) [facility] Phone: Start: 11-16-2018 Diabetes screen Diabetes screen [facility] Start: 2012 Shingles Vaccine (1 of 2) Shingles Vaccine (1 of 2) [facility] Start: 10-29-2007 Screening for malignant neoplasm of colon [facility] Start: 2002 Lipid panel [facility] Start: 2002 Lipid screen Lipid screen [facility] Phone: Start: 1981 DTaP/Tdap/Td vaccine (1 - Tdap) DTaP/Tdap/Td vaccine (1 - Tdap) [facility] Phone: Start: 1974 COVID-19 Vaccine (1) COVID-19 Vaccine (1) [facility] Phone: Start: 1974 Depression Screen Depression Screen [facility] Start: 1973 DTaP/Tdap/Td vaccine (1 - Tdap) DTaP/Tdap/Td vaccine (1 - Tdap) [facility] Phone: Start: 10-29-1967 COVID-19 Vaccine (1) COVID-19 Vaccine (1) [facility] Start: 04-29-1963 COVID-19 Vaccine (#1) COVID[facility]19 [facility] Start: [facility] Screening for malignant neoplasm of colon [facility] End: 04-24-2024 DBT Breast - bilateral screening [facility] Comment on above: 1 Occurrences starting 04/24/2024 until 04/24/2024 End: 09-29-2021 INITIATE PACU OXYGEN THERAPY PROTOCOL Initiate PACU Oxygen Therapy Protocol Respiratory Care Routine Continuous until discontinued starting 09/29/2021 [facility]: Comment on above: Continuous until discontinued starting 0 09/29/2021 End: 02-01-2022 INITIATE PACU OXYGEN THERAPY PROTOCOL Initiate PACU Oxygen Therapy Protocol Respiratory Care Routine Continuous until discontinued starting 02/01/2022 [facility] [employer] Phone: Comment on above: Continuous until discontinued starting 0 02/01/2022 Oxygen therapy [Minimum Data Set ] Initiate Oxygen Therapy Protocol Respiratory Care Routine As Needed until discontinued starting 09/29/2021 [facility]: Comment on above: As Needed until discontinued starting Oxygen therapy [Minimum Data Set ] Initiate Oxygen Therapy Protocol Respiratory Care Routine As Needed until discontinued starting 02/01/2022 [facility] [employer] Phone: Comment on above: As Needed until discontinued starting Surgical Pathology Surgical Path ology Lab Routine Release Upon Ordering for 1 Occurrences starting 09/29/2021 [facility]: Comment on above: Release Upon Ordering for 1 Occurrences starting 09/29/2021 Surgical Pathology Surgical Path ology Lab Routine Cystocele, unspecified (CODE) Release Upon Ordering for 1 Occurrences starting 02/01/2022 [facility] [employer] Phone: Comment on above: Release Upon Ordering for 1 Occurrences starting 02/01/2022 End: 02-01-2022 SURGICAL PATHOLOGY REPORT SURGICAL PATHOLOGY REPORT Lab Routine Once for 1 Occurrences starting 02/01/2022 until 02/01/2022 [facility] Phone: Comment on above: Once for 1 Occurrences starting 02/02/20 22 until 02/01/2022 End: 06-15-2019 Thyroid Stimulating Receptor Antibody Thyroid Stimulating Receptor Antibody Lab Routine Once for 1 Occurrences starting 06/15/2019 until 06/15/2019 [facility] Phone: Comment on above: Once for 1 Occurrences starting 06/15/20 19 until 06/15/2019 Thyroid Stimulating Receptor Antibody Thyroid Stimulating Receptor Antibody Lab Routine 06/15/2019 11:37 AM EST [facility] Phone: Immunizations Immunization Date Immunization Notes Care Provider Santi terrazas 01-21-2014 tetanus toxoid, redu sukhdev diphtheria toxoid, and acellular pertussis vaccine, adsorbed Candy Gee Work Phone: [employer] Phone: Payers Date Payer Category Payer Unknown [id number] 2018 Unknown BCBS BCBS xxxxxx [id number] 2018-Present [phone] [address] [place] [address] [id number] 2016 Unknown [id number] 2016 Unknown BCBS BCBS - [place] P PO xxxxxxxxxxxxxxx 2016-Present [address] [place] [address] xxxxxxxxxxxxxxx [id number] 1962 Unknown [id number] 1962 Unknown [id number] 1962 Unknown [id number] 1962 Unknown [id number] 1962 Unknown [id number] 1962 Unknown [id number] 1962 Unknown [id number] Social History Date Type Detail Facility Start: 12-14-2020 End: 11-21-2022 Tobacco smoking status MTIS Never smoker [facility] Phone: Start: 12-14-2020 End: 11-21-2022 Tobacco use and exposure Never used [facility] Start: 12-14-2020 End: 03-20-2022 Alcohol intake Current non-drinker of alcohol (finding) [facility] Phone: Start: 12-14-2020 End: 11-25-2023 Alcohol intake [facility] Start: 1960 Sex Assigned At Not on file [facility] Phone: Start: 08-16-2021 End: 02-01-2022 Exposure to SARS-CoV-2 (event) Not sure [facility] Phone: Start: 07-10-2023 End: 08-15-2023 Alcohol intake Ex-drinker (finding) [facility] Start: 12-19-2022 End: 11-25-2023 Humiliation, Afraid, Rape, and Kick questionnaire [HARK] [facility] Within the last year , have you been afraid of your partner or ex-partner? Patient refused [facility] Are you now , , , , never or living with a partner? [facility] Start: 02-08-2023 Alcohol Comment Caffeine intake: coffeee [facility] Start: 04-24-2024 Alcoholic beverage intake Lifetime non-drinker (finding) [facility] Port[facility] Start: 11-21-2022 Tobacco Comment I have answered this countless times. [facility] Start: 12-21-2021 Gender identity Identifies as female gender (finding) [facility] Clinical Notes 09-15-2021 to 05-20-2024 Candy Gee, PA - 08/15/2023 10:30 AM Charli Brothers, DO - 02/02/2022 10:00 AM Maribel Hernandez, DO - 02/02/2022 7:13 AM Gita Omer, DO - 02/01/2022 12:40 PM EDTAdewayne/Jose Note Date & Type Note Facility 05-20-2024 Note [facility] Cardiology Clinic Note Chief Complaint: New patient here to establish care. She wore 2 week Holter monitor last month for palpitations, SOB, and lightheadedness. She denies chest pain. HPI: Chester Negro is a 63 y.o. female With a longstanding history of palpitations. She was seen years ago by sales service supervisor in [place]. She underwent a number of tests. She was started on metoprolol and that helped her symptoms for years. In 2020, after developing COVID, her blood pressure was low and her metoprolol was stopped. Initially, she had no adverse effects. In July of this year, she started noticing progressively worsening palpitations. Initially thought to be due to a lung infection, she was started on an antibiotic. For the past month or 2 these palpitations have been very significant. They occur both at rest and with exertion. They can last seconds, minutes, or hours. She becomes lightheaded and dizzy. She has had no alejandra syncope. She has no chest pain, but does have exertional shortness of breath and chest pressure. Past medical history: Hypothyroidism, eosinophilic esophagitis, palpitations Social history: She drinks 2 cups of coffee a day, she drinks alcohol very rarely, she does not smoke. She denies illicit drugs. 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 Family history: Heart heart father of a heart attack in his late 60s. Her mother has a history of arrhythmias and sees Dr. [facility] Card[facility] ROS: Review of Systems Cardiovascular: Positive for irregular heartbeat and palpitations. Respiratory: Positive for shortness of breath. Neurological: Positive for light-headedness. All other systems reviewed and are negative. Past Medical History She has no past medical history on file. Surgical History She has no past surgical history on file. Social History She has no history on file for tobacco use, alcohol use, and drug use. Family History No family history on file. Allergies Patient has no allergy information on record. Medications No current outpatient medications on file. Last Recorded Vitals BP (!) 178/96 (BP Location: Right arm, Patient Position: Sitting) Pulse 73 Ht 1.626 m (5' 4 ) Wt 82.1 kg (181 lb) SpO2 98% BMI 31.07 kg/m??? Physical Examination: GENERAL: alert and oriented x3, well developed, in no acute distress. HEAD: atraumatic, normocephalic. EYES: KRYSTA, EOMI. NECK: trachea midline, no JVD present, no carotid bruits present. CARDIAC: S1, S2 present. RRR. No murmur, rubs, or gallops. RESPIRATORY: CTAB, no increased effort of breathing, no rales, rhonchi, or wheezing. ABDOMEN: soft, nontender, nondistended. EXTREMITIES: no lower extremity edema, peripheral pulses are 2+ bilaterally. No rash/skin discoloration present. NEURO: strength/sensation equal and symmetric in bilateral upper and lower extremities. PSYCH: appropriate mood, affect, and judgement. Investigations: Echocardiogram 05/21/2019 Left Ventricle: Systolic function is normal with an ejection fraction of 60-65%. Left Ventricle: Grade I diastolic dysfunction (impaired relaxation) is present. Right Ventricle: Right ventricle was not well visualized. Aortic Valve: There is no regurgitation or stenosis. Mitral Valve: There is no regurgitation or stenosis. Tricuspid Valve: There is no regurgitation or stenosis. Nuc stress Lexiscan Order: [id number] Narrative Chest pain radiating to jaw for 3 days. MYOCARDIAL PERFUSION SCAN: 11.3 millicuries Cardiolite administered at rest and SPECT imaging performed. Following IV administration of 0.4 mg Lexiscan, 35.5 mCi Cardiolite administered and SPECT imaging performed. Wall motion analysis performed. Computer-assisted distribution profiles and washout profiles generated. Distribution of radiotracer within myocardium unremarkable. No convincing evidence of fixed or reversible perfusion defect. Left ventricular ejection fraction of 73%. IMPRESSION: * No fixed or reversible myocardial perfusion defects are evident. * LVEF is 73%. * Low risk for significant cardiovascular event by imaging criteria. * EKG interpreted separately. Finalized by Albaro Osei MD on 05/22/2019 1:54 PM Exam End: 05/22/19 13:14 Specimen Collected: 05/22/19 13:14 Last Resulted: 05/22/19 13:54 Received From: [facility] CTA Chest W IV Contrast Order: [id number] Narrative Clinical indication Coughing, shortness of breath, Covid [address] angiography the chest performed using 100 mL of Omnipaque 350 intravenously. Thin section axial images are reviewed in used to create 3-dimensional maximum intensity projection CT angiograms of the chest in the sagittal, axial and coronal projections. FINDINGS: There is no evidence of pulmonary embolism. There are extensive groundglass infiltrates as well as more confluent areas of opacity especially in the lower lungs concerning for a (more content not included)... [facility] 08-15-2023 History of Present illness Narrative Subjective Patient ID: Chester Negro is a 62 y.o. female who presents for Wellness. Subjective Chester Negro is a 62 y.o. female and is here for a comprehensive physical exam. The patient would like to discuss her Levothyroxine. States Dr. Zhao had her on MANAGER NIGHT thyroid at one time and she felt better on that med than she does on the Levothyroxine, would like to discuss switch back. Current Outpatient Medications on File Prior to Visit Medication Sig Dispense Refill Aloe Vera 25 MG capsule Take 1 tablet by mouth 1 (one) time each day baclofen (Lioresal) 10 MG tablet Take 1 tablet (10 mg) by mouth as needed at bedtime for muscle spasms. 30 tablet 2 BD Disp Needle 23G X 1 misc inject IM Once a month 90 days Biotin w/ Vitamins C & E (HAIR SKIN & NAILS GUMMIES PO) Take 1 tablet by mouth in the morning. cholecalciferol (D3-5) 5,000 Units tablet Take 1 tablet by mouth in the morning. cyanocobalamin (Vitamin B-12) 1000 MCG/ML injection Inject 1,000 mcg into the shoulder, thigh, or buttocks every 30 (thirty) days. ELDERBERRY PO Take 1 tablet by mouth in the morning. loratadine (Claritin) 10 MG tablet Take 10 mg by mouth Daily as needed for allergies [DISCONTINUED] levothyroxine (Synthroid, Levoxyl) 125 MCG tablet take 1 tablet by mouth every morning ON AN EMPTY STOMACH 30 tablet 3 [DISCONTINUED] omeprazole (PriLOSEC) [address] capsule Take 1 capsule by mouth. 30 minutes before morning meal [DISCONTINUED] Premarin 0.625 MG/GM cream insert 0.5 gram with APPLICATOR vaginally once daily POST-OPERATIVELY ON DAY NUMBER 8 [DISCONTINUED] triamcinolone (Nasacort Allergy 24HR) 55 MCG/ACT nasal inhaler Administer 1 spray into each nostril 1 (one) time each day at the same time. No current facility-administered medications on file prior to visit. Allergies Allergen Reactions Celecoxib Other Reaction(s): GI Bleeding Gabapentin Other Reaction(s): Stomach Upset Meloxicam Other Other Reaction(s): Stomach Ulcer Penicillins Swelling Shellfish-Derived Products Diarrhea, GI intolerance and Other Social History Tobacco Use Smoking status: Never Smokeless tobacco: Never Substance Use Topics Alcohol use: Not Currently Comment: Caffeine intake: coffeee Drug use: Never Family History Problem Relation Name Age of Onset Hypertension Mother Heart disease Mother Stroke Mother Cancer Mother Stroke Father Mental illness Father Cancer Father Heart disease Father Diabetes Father Asthma Daughter Past Medical History: Diagnosis Date Arthritis Chest pain 05/21/2019 hypothyroidism COVID COVID-19 04/05/2021 pneumonia Diverticulosis Eosinophilic esophagitis Kidney stone Menorrhagia 2016 enometrial wall thickineing Pneumonia due to COVID-19 virus Past Surgical History: Procedure Laterality Date COLONOSCOPY 2011 COLONOSCOPY 2002 COLONOSCOPY 01/2018 CT ANGIOGRAM HEART CORONARY 04/05/2021 CT ANGIOGRAM TAVR 04/05/2021 CT ANGIOGRAM HEART CORONARY 05/21/2019 CT ANGIOGRAM TAVR 05/21/2019 CYSTOCELE REPAIR 02/01/2022 DILATION AND CURETTAGE OF UTERUS 03/15/2016 ENDOMETRIAL BIOPSY ESOPHAGOGASTRODUODENOSCOPY 2011 with biopsy HAND SURGERY 05/13/2019 right thumb [facility] arthroplasty and tendo transfer Visit Vitals BP 132/84 Pulse 54 Resp 16 Wt 182 lb SpO2 99% BMI 31.24 kg/m Smoking Status Never BSA 1.93 m Review of Systems Constitutional: Negative for chills, fatigue and fever. HENT: Negative for congestion, ear pain, rhinorrhea and sore throat. Eyes: Negative for pain, discharge and visual disturbance. Respiratory: Positive for cough. Negative for shortness of breath and wheezing. Cardiovascular: Negative for chest pain, palpitations and leg swelling. Gastrointestinal: Negative for abdominal pain, constipation, diarrhea, nausea and vomiting. Genitourinary: Negative for difficulty urinating, dysuria and frequency. Musculoskeletal: Positive for arthralgias, back pain and myalgias. Skin: Negative for rash. Neurological: Negative for dizziness and numbness. Psychiatric/Behavioral: Negative for sleep disturbance. The patient is not nervous/anxious. Objective Physical Exam Constitutional: General: She is not in acute distress. Appearance: She is well-developed. She is obese. HENT: Head: Normocephalic and atraumatic. Right Ear: Tympanic membrane and ear canal normal. Left Ear: Tympanic membrane and ear canal normal. Nose: Nose normal. Mouth/Throat: Mouth: Mucous membranes are moist. Pharynx: No posterior oropharyngeal erythema. Eyes: General: No scleral icterus. Extraocular Movements: Extraocular movements intact. Conjunctiva/sclera: Conjunctivae normal. Pupils: Pupils are equal, round, and reactive to light. Cardiovascular: Rate and Rhythm: Normal rate and regular rhythm. Heart sounds: Normal heart sounds. No murmur heard. Pulmonary: Effort: Pulmonary effort is normal. No respiratory distress. Breath sounds: Normal breath sounds. No wheezing, rhonchi or rales. Abdominal: General: Bowel sounds are normal. There is no distension. Palpations: Abdomen is soft. Tenderness: There is no abdominal tenderness. There is no guarding. Musculoskeletal: General: No swelling or deformity. Cervical back: Normal range of motion and neck supple. No tenderness. Lumbar back: Positive right straight leg raise test and positive left straight leg raise test. Comments: SLR positive for back pain only bilat Skin: General: Skin is warm and dry. Capillary Refill: Capillary refill takes less than 2 seconds. Findings: No rash. Neurological: General: No focal deficit present. Mental Status: She is alert and oriented to person, place, and time. Cranial Nerves: No cranial nerve deficit. Sensory: No sensory deficit. Motor: No weakness. Gait: Gait normal. Deep Tendon Reflexes: Reflexes normal. Psychiatric: Mood and Affect: Mood normal. Behavior: Behavior normal. Thought Content: Thought content normal. Judgment: Judgment normal. Assessment/Plan Diagnoses and all orders for this visit: Wellness examination - CBC and differential; Future - Comprehensive metabolic panel; Future - Lipid panel; Future - T3, free; Future - T4, free; Future - TSH; Future - Vitamin D 25 hydroxy; Future - Vitamin B12; Future Wellness form reviewed in detail with the patient. Encouraged patient to stay up to date on immunizations and preventative testing. Encouraged healthy diet, stay active. Will continue with yearly wellness exams. Cervical radiculopathy This is a chronic medical condition that is stable since last assessment. No changes in treatment are suggested at this time. Median neuropathy of both upper extremities This is a chronic medical condition that is stable since last assessment. No changes in treatment are suggested at this time. Occipital neuralgia, unspecified laterality This is a chronic medical condition that is stable since last assessment. No changes in treatment are suggested at this time. Other chronic pain This is a chronic medical condition that is stable since last assessment. No changes in treatment are suggested at this time. Sleep disorder due to a general medical condition, mixed type This is a chronic medical condition that is stable since last assessment. No changes in treatment are suggested at this time. Hiatal hernia The patient is seeing a senior medical transcriptionist for this condition, treatment is deferred to that specialist. Correspondence from that specialist and any available testing were reviewed during today's visit. Palpitation This is a chronic medical condition that is stable since last assessment. No changes in treatment are suggested at this time. Polyp of colon, unspecified part of colon, unspecified type The patient is seeing a senior medical transcriptionist for this condition, treatment is deferred to that specialist. Correspondence from that specialist and any available testing were reviewed during today's visit. Diverticulosis of colon The patient is seeing a senior medical transcriptionist for this condition, treatment is deferred to that specialist. Correspondence from that specialist and any available testing were reviewed during today's visit. Eosinophilic esophagitis The patient is seeing a senior medical transcriptionist for this condition, treatment is deferred to that specialist. Correspondence from that specialist and any available testing were reviewed during today's visit. Gastric mass The patient is seeing a senior medical transcriptionist for this condition, treatment is deferred to that specialist. Correspondence from that specialist and any available testing were reviewed during today's visit. History of gastric ulcer The patient is seeing a senior medical transcriptionist for this condition, treatment is deferred to that specialist. Correspondence from that specialist and any available testing were reviewed during today's visit. Irritable bowel syndrome with diarrhea The patient is seeing a senior medical transcriptionist for this condition, treatment is deferred to that specialist. Correspondence from that specialist and any available testing were reviewed during today's visit. Schatzki's ring of distal esophagus The patient is seeing a senior medical transcriptionist for this condition, treatment is deferred to that specialist. Correspondence from that specialist and any available testing were reviewed during today's visit. [place]-Walker grade 3 cystocele The patient is seeing a senior medical transcriptionist for this condition, treatment is deferred to that specialist. Correspondence from that specialist and any available testing were reviewed during today's visit. Cystocele, midline The patient is seeing a senior medical transcriptionist for this condition, treatment is deferred to that specialist. Correspondence from that specialist and any available testing were reviewed during today's visit. Enlarged uterus The patient is seeing a senior medical transcriptionist for this condition, treatment is deferred to that specialist. Correspondence from that specialist and any available testing were reviewed during today's visit. Fibroids, submucosal The patient is seeing a senior medical transcriptionist for this condition, treatment is deferred to that specialist. Correspondence from that specialist and any available testing were reviewed during today's visit. History of nephrolithiasis This is a chronic medical condition that is stable since last assessment. No changes in treatment are suggested at this time. Overflow incontinence This is a chronic medical condition that is stable since last assessment. No changes in treatment are suggested at this time. Cervical spondylosis without myelopathy This is a chronic medical condition that is stable since last assessment. No changes in treatment are suggested at this time. Fibromyalgia This is a chronic medical condition that is stable since last assessment. No changes in treatment are suggested at this time. Inflammatory polyarthropathy (CMS/HCC) This is a chronic medical condition that is stable since last assessment. No changes in treatment are suggested at this time. Localized osteoarthritis of right knee This is a chronic medical condition that is stable since last assessment. No changes in treatment are suggested at this time. Pain and swelling of right knee This is a chronic medical condition that is stable since last assessment. No changes in treatment are suggested at this time. Primary osteoarthritis involving multiple joints This is a chronic medical condition that is stable since last assessment. No changes in treatment are suggested at this time. Spondylosis of lumbosacral 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thy This is a chronic medical condition that is stable since last assessment. No changes in treatment are suggested at this time. 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 or radiculopathy This is a chronic medical condition that is stable since last assessment. No changes in treatment are suggested at this time. Acquired hypothyroidism (CMS/HCC) - T3, free; Future - T4, free; Future - TSH; Future - thyroid (MANAGER NIGHT Thyroid) 60 MG tablet; Take 1 tablet (60 mg) by mouth in the morning. - T3, free; Future - T4, free; Future - TSH; Future Will get updated baseline thyroid testing, the repeat in 6-8 weeks. She will restart the MANAGER NIGHT Thyroid and discontinue the Levothyroxine. Advise pt that if we cannot obtain stable labs regarding her thyroid I would recommend a referral to [facility] for further evaluation. She is in agreement with the above. ESS (euthyroid sick syndrome) - T3, free; Future - T4, free; Future - TSH; Future - thyroid (MANAGER NIGHT Thyroid) 60 MG tablet; Take 1 tablet (60 mg) by mouth in the morning. - T3, free; Future - T4, free; Future - TSH; Future See above. Wanda's disease (CMS/HCC) - T3, free; Future - T4, free; Future - TSH; Future - T3, free; Future - T4, free; Future - TSH; Future See above. Left ovarian cyst The patient is seeing a senior medical transcriptionist for this condition, treatment is deferred to that specialist. Correspondence from that specialist and any available testing were reviewed during today's visit. Non morbid obesity due to excess calories Encouraged portion control, decrease simple sugars and carbohydrates, gradually increase activity level. Aim for gradual steady weight loss. Vitamin B-complex deficiency - Vitamin B12; Future This is a chronic medical condition that is stable since last assessment. No changes in treatment are suggested at this time. Will continue to monitor with routine labs. Vitamin D deficiency - Vitamin D 25 hydroxy; Future This is a chronic medical condition that is stable since last assessment. No changes in treatment are suggested at this time. Will continue to monitor with routine labs. 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 No changes in treatment are suggested at this time. Will continue to monitor with routine labs. Abdominal bloating This is a chronic medical condition that is stable since last assessment. No changes in treatment are suggested at this time. Bruises easily - CBC and differential; Future This is a chronic medical condition that is stable since last assessment. No changes in treatment are suggested at this time. Will continue to monitor with routine labs. Chronic fatigue - CBC and differential; Future - Comprehensive metabolic panel; Future This is a chronic medical condition that is stable since last assessment. No changes in treatment are suggested at this time. Will continue to monitor with routine labs. Family history of breast cancer The patient is seeing a senior medical transcriptionist for this condition, treatment is deferred to that specialist. Correspondence from that specialist and any available testing were reviewed during today's visit. H/O tubal ligation The patient is seeing a senior medical transcriptionist for this condition, treatment is deferred to that specialist. Correspondence from that specialist and any available testing were reviewed during today's visit. Hypokalemia - Comprehensive metabolic panel; Future This is a chronic medical condition that is stable since last assessment. No changes in treatment are suggested at this time. Will continue to monitor with routine labs. Lipoprotein deficiency disorder (CMS/HCC) - Comprehensive metabolic panel; Future - Lipid panel; Future This is a chronic medical condition that is stable since last assessment. No changes in treatment are suggested at this time. Will continue to monitor with routine labs. S/P endometrial ablation The patient is seeing a senior medical transcriptionist for this condition, treatment is deferred to that specialist. Correspondence from that specialist and any available testing were reviewed during today's visit. Sciatica, unspecified laterality This is a chronic medical condition that is stable since last assessment. No changes in treatment are suggested at this time. Seasonal allergic rhinitis due to pollen Continue Loratadine daily. She can let me know if the cough does not continue to improve. Tubular adenoma The patient is seeing a senior medical transcriptionist for this condition, treatment is deferred to that specialist. Correspondence from that specialist and any available testing were reviewed during today's visit. Vision abnormalities The patient is seeing a senior medical transcriptionist for this condition, treatment is deferred to that specialist. Correspondence from that specialist and any available testing were reviewed during today's visit. Follow up in about 6 months (around 02/13/2024) for Medication Follow Up. documented in this encounter [facility] 02-02-2022 History of Present illness Narrative Images from the original note were not included. Gynecology Rounds POD# 1 Procedure: Anterior Colporrhaphy Date: 02/02/2022 Time: 10:00 AM Patient Name: Chester Negro Patient : [id number] Room/Bed: 0175/0175-01 Admission Date/Time: 02/01/2022 6:02 AM [facility] #: [id number] Attending Physician Statement I have discussed the care of Chester Negro, including pertinent history and exam findings, with the resident. I have reviewed their note in the electronic medical record. I have seen and examined the patient and the hunt elements of all parts of the encounter have been performed/reviewed by me . I agree with the assessment, plan and orders as documented by the resident. PVR=85 ml RX cipro 500 mg po bid x 7 days #14 Vitals: 02/02/22 0700 BP: 124/70 Pulse: 66 Resp: 16 Temp: 98.2 F (36.8 C) SpO2: Admission on 02/01/2022 Component Date Value Ref Range Status Color, UA 02/01/2022 Yellow Yellow Final Turbidity UA 02/01/2022 Clear Clear Final Glucose, Ur 02/01/2022 NEGATIVE NEGATIVE Final Bilirubin Urine 02/01/2022 NEGATIVE NEGATIVE Final Ketones, Urine 02/01/2022 NEGATIVE NEGATIVE Final Specific [place], UA 02/01/2022 1.008 1.000 - 1.030 Final Urine Hgb 02/01/2022 NEGATIVE NEGATIVE Final pH, UA 02/01/2022 6.5 5.0 - 8.0 Final Protein, UA 02/01/2022 NEGATIVE NEGATIVE Final Urobilinogen, Urine 02/01/2022 Normal Normal Final Nitrite, Urine 02/01/2022 NEGATIVE NEGATIVE Final Leukocyte Esterase, Urine 02/01/2022 NEGATIVE NEGATIVE Final Urinalysis Comments 02/01/2022 Microscopic exam not performed based on chemical results unless requested in original order. Final Hemoglobin 02/01/2022 12.5 12.0 - 16.0 g/dL Final Hematocrit 02/01/2022 35.5 (A) 36 - 46 % Final ] Home care, Restrictions & Follow up Care review completed RTO 2 weeks Attending's Name: Gynecology Progress Note Date: 02/02/2022 Time: 7:13 AM Chester Negro 61 y.o. female , POD # 1 s/p Anterior vaginal repair on 02/01/22 Patient seen and examined. She complained has no complaints this AM. Pain is controlled. Patient is tolerating oral intake. She is urinating well. Salgado catheter removed. Awaiting void trial. She denies any vaginal bleeding. She is ambulating without difficulty. She is passing flatus. She denies Fever/Chills, Chest Pain, SOB, N/V, Calf Pain Vaginal packing removed with minimal serosanguinous drainage, patient tolerated well. Vitals: Vitals: 02/01/22 1915 02/01/22 2333 02/02/22 0250 02/02/22 0700 BP: 117/67 127/65 (!) 104/59 124/70 Pulse: 64 63 68 66 Resp: 16 16 18 Temp: 98 F (36.7 C) 97.7 F (36.5 C) 97.8 F (36.6 C) TempSrc: Oral Oral Oral SpO2: 96% 96% 94% Weight: Height: Intake/Output: Last Shift: I/O last 3 completed shifts: In: 4494.9 [P.O.:1100; I.V.:3294.9; IV Piggyback:100] Out: 3715 [Urine:3705; Blood:10] Current Shift: No intake/output data recorded. 1575 mL out in last 10 hrs ~ 157.5mL/hr Physical Exam: General: awake, alert, cooperative, no apparent distress, and appears stated age, no apparent distress, alert, and cooperative Neurologic: alert, oriented, normal speech, no focal findings or movement disorder noted Lungs: No increased work of breathing, good air exchange, clear to auscultation bilaterally, no crackles or wheezing Heart: regular rate and rhythm Abdomen: soft, non-distended, appropriate tenderness, no CVA tenderness, normal bowel sounds Incision: vaginal packing removed with minimal serosanguinous drainage Extremities: no calf tenderness, non edematous, SCDs in place and functioning Lab: Recent Results (from the past 12 hour(s)) Hemoglobin and Hematocrit Collection Time: 02/01/22 8:27 PM Result Value Ref Range Hemoglobin 12.5 12.0 - 16.0 g/dL Hematocrit 35.5 (L) 36 - 46 % Assessment/Plan: Chester Negro 61 y.o. female , POD #1 s/p Anterior Vaginal Repair - Doing well, vitals stable - Salgado catheter removed at 0600, awaiting voiding trial - Vaginal packing removed with minimal serosanguinous drainage - Continue LR IVF 125 mL/hr until spontaneous void - Encourage ambulation and use of incentive spirometer - Pain control: Tylenol/Pamela/Toradol prn - Labs: H&H stable w/ Hgb @ 12.5 - DVT Proph: Lovenox 40 mg QD - Abx: S/p Flagyl/Cipro intra op, S/p Clinda 900 mg q8h x2 doses - Pyridium TID PRN bladder irritation - Diet: Regular - Path: Vaginal mucosa - Continue post-op care, please page with any questions Hx Palpitations - Continue home medication, Lopressor 25mg QD - Currently asymptomatic Hypothyroidism - Continue Bryant Thyroid 60mg BID Hx gastric ulcer - Will avoid PO NSAIDs Please [employer] Dr. Rehana Hernandez from [phone] with any questions David Kimball DO Care Rep Resident 02/02/2022, 7:13 AM Gynecology Progress Note Date: 02/01/2022 Time: 12:41 PM Chester Negro 61 y.o. female , POD # 0 s/p Anterior Vaginal Repair on 02/01/22 Patient seen and examined. She complained of the sensation of needing to urinate from the salgado catheter in place. Pain is controlled. Patient is tolerating oral intake. Salgado catheter in place and urine output adequate. She denies any vaginal bleeding. She is currently eating, and will ambulate with RN after. She is passing flatus. She denies Fever/Chills, Chest Pain, SOB, N/V, Calf Pain Vitals: Vitals: 02/01/22 0940 02/01/22 0950 02/01/22 1003 02/01/22 1112 BP: 114/66 114/61 (!) 107/58 120/60 Pulse: 62 65 62 66 Resp: 15 10 16 Temp: 97.2 F (36.2 C) 97.7 F (36.5 C) 97.3 F (36.3 C) TempSrc: Infrared Oral SpO2: 97% 94% Weight: Height: Intake/Output: Current Shift: I/O this shift: In: 1200 [I.V.:1200] Out: 390 [Urine:380; Blood:10] 500cc in salgado bag, clear yellow urine Physical Exam: General: no apparent distress, alert, and cooperative Neurologic: alert, oriented, normal speech, no focal findings or movement disorder noted Lungs: no increased work of breathing, good air exchange, and no retractions Heart: regular rate, no cyanosis present Abdomen: soft, non-distended, appropriate tenderness Incision: Vaginal packing in place without saturation Extremities: no calf tenderness, non edematous, SCDs currently on Lab: Recent Results (from the past 12 hour(s)) Urinalysis with Reflex to Culture Collection Time: 02/01/22 8:24 AM Specimen: Bladder; Urine Result Value Ref Range Color, UA Yellow Yellow Turbidity UA Clear Clear Glucose, Ur NEGATIVE NEGATIVE Bilirubin Urine NEGATIVE NEGATIVE Ketones, Urine NEGATIVE NEGATIVE Specific [place], UA 1.008 1.000 - 1.030 Urine Hgb NEGATIVE NEGATIVE pH, UA 6.5 5.0 - 8.0 Protein, UA NEGATIVE NEGATIVE Urobilinogen, Urine Normal Normal Nitrite, Urine NEGATIVE NEGATIVE Leukocyte Esterase, Urine NEGATIVE NEGATIVE Urinalysis Comments Microscopic exam not performed based on chemical results unless requested in original order. Assessment/Plan: Chester Negro 61 y.o. female , POD #0 s/p Anterior Vaginal Repair - Doing well, vitals stable - Continue salgado catheter until tomorrow AM, UOP adequate - Continue LR IVF @ 125 mL/hr - Encourage ambulation and use of incentive spirometer - Pain control: Tylenol/Pamela/Toradol prn - Labs: H&H @ 2000 - DVT Proph: Lovenox 40 mg QD, if Hgb stable @ 2100 - Abx: S/p Flagyl/Cipro intra op, Clinda 900 mg q8h x2 doses - Pyridium TID PRN while salgado in place - Diet: Regular - Path: Vaginal mucosa - Voiding trial in AM with post void residual. If PVR < 150 mL, Salgado catheter should remain out. If > 350 mL, replace Salgado catheter. If 150-349 mL, have patient double void and rescan PVR. - Vaginal packing in place, will remove in AM - Continue post-op care, please page with any questions Hx Palpitations - Continue home medication, Lopressor 25mg QD - Currently asymptomatic Hypothyroidism - Continue Bryant Thyroid 60mg BID Hx gastric ulcer - Will avoid PO NSAIDs Please [employer]erve Dr. Isabel Omer from [phone] with [address] questions [address] Dr[address] Ksenia Herman from [phone] Margarito Saldivar MD Care Rep Resident Pager: [phone] 02/01/2022, 12:41 PM Resident Physician Statement I have personally seen the patient. I agree with the assessment, plan and orders as documented by horacio resident. I have made changes to the above note as needed. I have discussed the case with above named attending. Isabel Omer DO ESCROW MANAGER PGY-3 02/01/2022 12:46 PM documented in this encounter [facility] Phone: 02-01-2022 Hospital Discharge instructions Ino Brothers DO - 02/01/2022 7:26 AM EDT Images from the original note were not included. Patient Name: Chester Negro Date: 02/01/2022 Time: 7:24 AM [facility] Obstetrics & Gynecology Outpatient Surgery After Care Instructions For Problems after Leaving the Hospital Call IN AN EMERGENCY CALL 911 OR GO TO THE NEAREST EMERGENCY ROOM For The next 24 hours: Do not: drive, work, or operate machinery Do not: consume alcohol, tranquilizers, or sleeping medications Do not: make important personal or business decisions Normal post operative expectations: A low grade fever [place] coloration of skin from soap Sore scratchy throat Minimal amount of swelling or bruising Drainage from operative site Specific problems or warning signs to watch for: Call if any of the following occur: Persistent bleeding not stopped by direct pressure Coughing or vomiting a large amount of bright red blood Unable to tolerate liquids for more than 4 hours Severe unexplained pain or burning Temperature greater than 101 F Unable to urinate for more than 6 hours Medications: A copy of your medication reconciliation form has been given to you You have been given drug information sheets. Side effects, warnings and how to use these medications can be found on these sheets. Resume your usual medications Take prescriptions as directed Motrin 600 mg one tab every 6 hours with food Take Pain medication with food [facility] Obstetrics & Gynecology Activity: Restrict your activities for the rest of the day. Resume light activity tomorrow as you feel you can unless otherwise instructed. No driving for 48 hours. You are advised to go directly home from the hospital. Do not engage in any strenuous activity that may put stress on your incision. No intercourse, douching, tampons, baths, lakes, or pools. No lifting or excessive bending. Instructed on deep breathing exercises. Diet: You may resume a normal diet as you feel you can. Start with clear liquids and progress gradually to your usual diet if you are not nauseated. Care of your operative area: No dressing is utilized for this procedure. You may shower as able. Do not soak in a bath or swim until cleared to do so by your physician. Special instructions: Do not insert anything into the vagina until cleared at your post-op visit Call to schedule your follow-up appointment: You should return to the office in 10-14 days Discharge instructions reviewed with patient / family member and all persons verbalize understanding of the instructions. [facility] Obstetrics & Gynecology [facility] [address] [place] [id number] Discharge Instructions for Cystocele and Rectocele Repair A cystocele , sometimes called fallen bladder, occurs when part of the bladder bulges into the vagina. This occurs because of a weakening in the wall between the bladder and vagina. A rectocele occurs when part of the rectum bulges into the vagina. This is caused by a weakening in the wall between the rectum and the vagina. Recovery from this surgery takes about 1-2 weeks. Steps to Take Home Care If you were given a general anesthetic, continue your deep breathing/coughing exercises as instructed in the hospital. If you went home with a urinary catheter in place, monitor your urine output. Ask your doctor about when it is safe to shower, bathe, or soak in water. During the first four weeks after surgery, you may notice a bloody discharge from your vagina. Diet Return to your normal diet the same or next day after surgery, as directed by your doctor. Physical Activity Avoid heavy lifting for 6-8 weeks. Follow your doctor's instructions for gradually increasing your activity. Ask your doctor when you will be able to return to work and drive. Avoid sexual intercourse until your doctor has given you permission to do so. Do not insert tampons or anything into your vagina for about a month. Medications If you had to stop taking medications before the procedure, ask your doctor when you can resume taking them. Medications that are commonly stopped include: Anti-inflammatory drugs (eg, aspirin ) Blood thinners, such as clopidogrel (Plavix) or warfarin (Coumadin) You will likely get a prescription for pain medicine. When taking medications, it's important to: Take your medication as directed. Do not change the amount or the schedule. Do not stop taking them without talking to your doctor. Do not share them. Know what the results and side effects. Report them to your doctor. Some drugs can be dangerous when mixed. Talk to a doctor or pharmacist if you are taking more than one drug. This includes [id number] medication and herb or dietary supplements. Plan ahead for refills so you don't run out. Lifestyle Changes Typically, you will find that you have improved bladder and bowel control after surgery. Sexual intercourse may also be more comfortable. Follow-up If you had rectocele repair alone, the medicated vaginal packing is usually left in the vagina overnight. The bladder catheter will be removed as soon as you are able to empty, usually before discharge from the hospital. If you had cystocele repair, the medicated vaginal packing is also usually left in place overnight. But, the bladder catheter often needs to stay in longer (sometimes 2-6 days). This is to allow the bladder time to begin functioning normally again. Schedule a follow-up appointment as directed by your doctor. Call Your Doctor If Any of the Following Occurs Monitor your recovery once you leave the hospital. As soon as you have a problem, alert your doctor. If any of the following occur, call your doctor: Signs of infection, including fever and chills Excessive bleeding, or any discharge from the incision site Unusually heavy vaginal bleeding, of foul-smeeling discharge from the vagina Nausea or vomiting Pain that you can't control with the medications you've been given Inability to pass urine into catheter Pain, burning, urgency, or frequency of urination, or persistent bleeding in the urine Cough, shortness of breath, or chest pain In case of an emergency, call 911 immediately. documented in this encounter [employer] Phone: 01-22-2022 History of Present illness Narrative Patient went to radiology for chest x-ray. Dr Brothers's office has already obtained endocrine clearance and this is included in surgery chart. documented in this encounter [facility] Phone: 01-22-2022 Hospital Discharge instructions Shahla Rapp RN - 01/22/2022 12:00 PM EDT Pre-op Instructions For Patient Being Admitted After Surgery Medication Instructions: Please stop herbs and any supplements now (includes vitamins and minerals). Please contact your surgeon and prescribing physician for pre-op instructions for any blood thinners. If you have inhalers/aerosol treatments at home, please use them the morning of your surgery and bring the inhalers with you to the hospital. Please take the following medications the morning of your surgery with a sip of water: metoprolol, MANAGER NIGHT thyroid Surgery Instructions: After midnight before surgery: Do not eat or drink anything, including water, mints, gum, and hard candy. You may brush your teeth without swallowing. No smoking, chewing tobacco, or street drugs. Please shower or bathe before surgery. If you were given Surgical Scrub Chlorhexidine Gluconate Liquid (CHG), please shower the night before and the morning of your surgery following the detailed instructions you received during your pre-admission visit. Please do not wear any cologne, lotion, powder, deodorant, jewelry, piercings, perfume, makeup, nail argentine, hair accessories, or hair spray on the day of surgery. Wear loose comfortable clothing. Leave your valuables at home. Bring a storage case for any glasses/contacts. The Day of Surgery: Arrive at [facility] Surgery Entrance at the time directed by your surgeon and check in at the desk. If you have a living will or healthcare power of securities attorney, please bring a copy. You will be taken to the pre-op holding area where you will be prepared for surgery. A physical assessment will be performed by a nurse practitioner or journeyman powerhouse operator. Your IV will be started and you will meet your anesthesiologist. When you go to surgery, your family will be directed to the surgical waiting room, where the doctor should speak with them after your surgery. You will be in the recovery room after surgery and taken to your room when you are stable. Please leave your suitcase in the car. Have your family member take it to your room after you are out of recovery. If you use a Bi-PAP or C-PAP machine, please bring it with you and leave it in the car until you are in your room. . documented in this encounter MELE MARTIN [facility] Phone: 09-29-2021 History of Present illness Narrative It is to be noted that I can not sign the H&P for reason that I'm not assigned as a co signer. The nurse is aware and OKyed to start the Procedure SO ADMINISTRATION PLEASE DON'T SEND ME A LETTER. THANK YOU! documented in this encounter [employer] Phone: 09-25-2021 Reason for visit Narrative Specialty Diagnoses / Procedures Referred By Elma t Referred To Contact Diagnoses History of colon polyps GERD (gastroesophageal reflux disease) HISTORY OF COLON POLYPS / GERD COVID 09/25 Procedures ME ESOPHAGOGASTRODUODENOSCOPY TRANSORAL DIAGNOSTIC ME COLONOSCOPY FLX DX W/COLLJ SPEC WHEN PFRMD EGD COLONOSCOPY DIAGNOSTIC Constantine Sanchez MD [address] [facility], [address] [place] [address] [facility] [address] [place] [address] Referral ID Status Reason Start Date Expiration Date Visits Re quested Visits Authorized [id number] 1 1 [employer] Work Phone: [phone]) 820-661703-11-2022 History of Present illness Narrative* Su Tolbert RN - 09/15/2021 10:45 AM EST Pre-op Instructions For Out-Patient Endoscopy Surgery Medication Instructions: Please stop herbs and any supplements now (includes vitamins and minerals). Please contact your surgeon and prescribing physician for pre-op instructions for any blood thinners. If you have inhalers/aerosol treatments at home, please use them the morning of your surgery and bring the inhalers with you to the hospital. Please take the following medications the morning of your surgery with a sip of water: Metoprolol. Surgery Instructions: 1. After midnight before surgery: Do not eat or drink anything, including water, mints, gum, and hard candy. You may brush your teeth without swallowing. No smoking, chewing tobacco, or street drugs. 2. Please shower or bathe before surgery. 3. Please do not wear any cologne, lotion, powder, jewelry, piercings, perfume, makeup, nail argentine, hair accessories, or hair spray on the day of surgery. Wear loose comfortable clothing. 4. Leave your valuables at home. Bring a storage case for any glasses/contacts. 5. An adult who is responsible for you MUST drive you home and should be with you for the first 24 hours after surgery. The Day of Surgery: Arrive at [facility] Surgery Entrance at the time directed by your surgeon and check in at the desk. If you have a living will or healthcare power of securities attorney, please bring a copy. You will be taken to the pre-op holding area where you will be prepared for surgery. A physical assessment will be performed by a nurse practitioner or journeyman powerhouse operator. Your IV will be started and you will meet your anesthesiologist. When you go to surgery, your family will be directed to the surgical waiting room, where the doctorshould speak with them after your surgery. After surgery, you will be taken to the recovery room then when you are awake and stable you will go to the short stay unit for preparation to be discharged. Instructions read to Chester's Sharad and understanding verbalized. documented in this encounterS[facility]imap Phone: evaluation note* Diagnosis Visit for screening mammogram Other screening mammogram documented in this encounter [employer] Phone: evaluation note* Diagnosis Pre-op testing- Primary Preoperative examination, unspecified documented in this encounter [employer] Phone: evaluation note* Diagnosis Gastroesophageal reflux disease Esophageal reflux Screening for colorectal cancer Special screening for malignant neoplasms, colon documented in this encounter [employer] Phone: evaluation note* Diagnosis Overflow incontinence documented in this encounter [employer] Phone: evaluation note* Diagnosis Encounter for screening mammogram for malignant neoplasm of breast Other screening mammogram documented in this encounter [employer] Phone: evaluation note* Diagnosis Pre-op testing Preoperative examination, unspecified Cystocele, unspecified (CODE) documented in this encounter [employer] Phone: evaluation note* Diagnosis S/P anterior colporrhaphy- Primary Cystocele, unspecified (CODE) [place]-Walker grade 3 cystocele Overflow incontinence Cystocele REPAIR 02/01/2022 Cystocele, midline Other specified hypothyroidism History of gastric ulcer Personal history of other diseases of digestive system Heart palpitations Palpitations documented in this encounter [employer] Phone: evaluation note* Diagnosis Post-menopausal Asymptomatic postmenopausal status (age-related) (natural) documented in this encounter [employer] Phone: evaluation note* Diagnosis Wellness examination- Primary Cervical radiculopathy Brachial neuritis or radiculitis nos Median neuropathy of both upper extremities Occipital neuralgia, unspecified laterality Other chronic pain Sleep disorder due to a general medical condition, mixed type Other sleep disturbances Hiatal hernia Diaphragmatic hernia without mention of obstruction or gangrene Palpitation Palpitations Polyp of colon, unspecified part of colon, unspecified type Diverticulosis of colon Diverticulosis of colon (without mention of hemorrhage) Eosinophilic esophagitis Gastric mass Unspecified disorder of stomach and duodenum History of gastric ulcer Irritable bowel syndrome with diarrhea Irritable bowel syndrome Schatzki's ring of distal esophagus [place]-Walker grade 3 cystocele Cystocele, midline Enlarged uterus Hypertrophy of uterus Fibroids, submucosal Submucous leiomyoma of uterus History of nephrolithiasis Overflow incontinence Cervical spondylosis without myelopathy Fibromyalgia Unspecified myalgia and myositis Inflammatory polyarthropathy (CMS/HCC) Unspecified inflammatory polyarthropathy Localized osteoarthritis of right knee Pain and swelling of right knee 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 or radiculopathy Acquired hypothyroidism (CMS/HCC) Unspecified hypothyroidism ESS (euthyroid sick syndrome) Euthyroid sick syndrome Wanda's disease (CMS/HCC) Chronic lymphocytic thyroiditis Left ovarian cyst Other and unspecified ovarian cyst Non morbid obesity due to excess calories Vitamin B-complex deficiency Unspecified vitamin B deficiency Vitamin D deficiency Other specified disorders involving the immune mechanism, 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) Abdominal bloating Flatulence, eructation, and gas pain Bruises easily Other symptoms involving skin and integumentary tissues Chronic fatigue Other malaise and fatigue Family history of breast cancer Family history of malignant neoplasm of breast H/O tubal ligation Hypokalemia Hypopotassemia Lipoprotein deficiency disorder (CMS/HCC) Lipoprotein deficiencies S/P endometrial ablation Other postprocedural status Sciatica, unspecified laterality Seasonal allergic rhinitis due to pollen Tubular adenoma Benign neoplasm of unspecified site Vision abnormalities Unspecified visual loss [facility] Diagnosis Encounter for screening mammogram for malignant neoplasm of breast Other screening mammogram documented in this encounter [facility] Discharge instructions* Instructions* Orestes Martell RN - 09/29/2021 Images from the original note were not included. Colonoscopy: What to Expect at Home Your Recovery After you have a colonoscopy, you will stay at the clinic for 1 to 2 hours until the medicines wearoff. Then you can go home, but you will need to arrange for a ride. Your doctor will tell you when you can eat and do your other usual activities. Your doctor will talk to you about when you will need your next colonoscopy. The results of your test and your risk for colorectal cancer will help your doctor decide how often you need to be checked. After the test, you may be bloated or have gas pains. You may need to pass gas. If a biopsy was done or a polyp was removed, you may have streaks of blood in your stool (feces) for a few days. This care sheet gives you a general idea about how long it will take for you to recover. But each person recovers at a different pace. Follow the steps below to get better as quickly as possible. How can you care for yourself at home? Activity Rest as much as you need to after you go home. You should be able to go back to your usual activities the day after the test. Diet Follow your doctor s directions for eating. Drink plenty of fluids (unless your doctor has told you not to) to replace the fluids that were lost during the colon prep. Do not drink alcohol. Medicines If polyps were removed or a biopsy was done during the test, your doctor may tell you not to take aspirin or other anti-inflammatory medicines, such as ibuprofen (Advil, Motrin) and naproxen (Aleve),for a few days. Other instructions For your safety, you should not drive or operate machinery until the medicine effects are gone and you can think clearly. Your doctor may tell you not to drive or operate machinery until the day after your test. Do not sign legal documents or make major decisions until the medicine effects are gone and you canthink clearly. The anesthesia medicine can make it hard for you to fully understand what you are agreeing to. Follow-up care is a hunt part of your treatment and safety. Be sure to make and go to all appointments, and call your doctor if you are having problems. It's also a good idea to know your test resultsand keep a list of the medicines you take. Call your Doctor if you have any of the following: Passing blood rectally or vomiting blood (it may be red or black). Persistent nausea or vomiting. Severe abdominal or chest pain, not relieved by passing gas. Fever of 100 or more, chills or excessive sweating. Redness or swelling at the IV site. If you experience shortness of breath or severe chest pain, call 911. Where can you learn more? Go to [email or web address] and sign in to your [employer] account. Enter E264 in the Search Health Information box to learn more about Colonoscopy: What to Expect at Home. If you do not have an account, please click on the Sign Up Now link. [employer]. Care instructions adapted under license by [facility]. This care instruction is for use with your licensed healthcare professional. If you have questions about a medical condition or this instruction, always ask your healthcare professional. [employer] disclaims any warranty or liability for your use of this information. Content Version: 9.9.606263; Last Revised: August 27, 2012 PATIENT INSTRUCTIONS DIVERTICULOSIS FOLLOW-UP: Please make an appointment with your physician as directed. Call your physician immediately if you have any fevers greater than 102.5, increasing abdominal pain, GI bleeding (from the colon or rectum),or nausea/vomiting. CAUSE: Some people may have congenital diverticulosis, but most people develop diverticulosis around or after age 40 due to a low-fiber, high-fat diet, along with inadequate fluid intake. This is very prevalent in the industrialized world where we eat a lot of processed, low fiber foods. Diverticuli develop due to firm stool and high pressures in the colon, along with secondary spasm, which causes outpouchings to occus where the small arteries penetrate the wall of the colon to feed the internal lining. These occur most commonly on the left side and lower portions of the colon. Diverticuli can then cause bleeding from the arteries at these sites of weakness when they rupture or the diveritculi can get blocked with stool and debris and become obstructed, causing diverticulosis, which is due to an infection. When these are infected, diverticulitis, it is often treated with antibiotics andbowel rest, but when severe, recurrent, or if rupture of the colon occurs, it may require surgery. Following appropriate dietary changes and taking the proper precautions is therefore very important. DIET: You should increase your dietary fiber intake and take a fiber supplement twice a day. Make sure that you are taking a supplement that is just fiber and is not a laxative, which should be notedon the package. Starting a fiber supplement may cause increased gas, more frequent bowel movements,and distension at first but this should improve after a couple of weeks. Try to eat whole wheat breads and pasta, more fruits and vegetables, along with brown rice and plenty of fluids. Avoid small undigestible food items that could get stuck in these outpouchings, such as unpopped popcorn kernals,whole corn, small undigestible seeds, etc.. ACTIVITY: Exercise is also a great way to prevent constipation and is encouraged. It may also help prevent progression of your diverticulosis. Always make sure you take in plenty of fluids when exercising. MEDICATIONS: Take an doyx-biz-vnichik fiber supplement as noted above twice daily. If your symptomsdon't improve with fiber and dietary changes alone your physician may also recommend psyllium or methylcellulose as well. If your physician has placed you on an antibiotic it is critical that you take the full course of these, even if your symptoms have improved, and that you not miss any doses. QUESTIONS: Please feel free to call your physician or the hospital power generation plant operator if you have any questions, and they will be glad to assist you. If you have further questions it may also be helpful to meet with a dietitician. High-Fiber Diet What Is Fiber? Dietary fiber is a form of carbohydrate found in plants that cannot be digested by humans. All plants contain fiber, including fruits, vegetables, grains, and legumes. Fiber is often classified into two categories: soluble and insoluble. Soluble fiber draws water into the bowel and can help slow digestion. Examples of foods that are high in soluble fiber include oatmeal, oat bran, barley, legumes (eg, beans and peas), apples, and strawberries. Insoluble fiber speeds digestion and can add bulk to the stool. Examples of foods that are high in insoluble fiber include whole-wheat products, wheat bran, cauliflower, green beans, and potatoes. Why Follow a High-Fiber Diet? A high-fiber diet is often recommended to prevent and treat constipation , hemorrhoids , diverticulitis , and irritable bowel syndrome . Eating a high- fiber diet can also help improve your cholesterol levels, lower your risk of coronary heart disease , reduce your risk of type 2 diabetes , and lower your weight. For people with type 1 or 2 diabetes, a high-fiber diet can also help stabilize bloodsugar levels. How Much Fiber Should I Eat? A high-fiber diet should contain 20-35 grams of fiber a day. This is actually the amount recommended for the general adult population; however, most Americans eat only 15 grams of fiber per day. Digestion of Fiber Eating a higher fiber diet than usual can take some getting used to by your body's digestive system. To avoid the side effects of sudden increases in dietary fiber (eg, gas, cramping, bloating, and diarrhea), increase fiber gradually and be sure to drink plenty of fluids every day. Tips for Increasing Fiber Intake Whenever possible, choose whole grains over refined grains (eg, brown rice instead of white rice, whole-wheat bread instead of white bread). Include a variety of grains in your diet, such as wheat, rye, barley, oats, quinoa, and bulgur. Eat more vegetarian-based meals. Here are some ideas: black maldonado burgers, eggplant lasagna, and veggie tofu stir-sarkar. Choose high-fiber snacks, such as fruits, popcorn, whole-grain crackers, and nuts. Make whole-grain cereal or whole-grain toast part of your daily breakfast regime. When eating out, whether ordering a sandwich or dinner, ask for extra vegetables. When baking, replace part of the white flour with whole-wheat flour. Whole-wheat flour is particularly easy to incorporate into a recipe. High-Fiber Diet Eating Guide Food Category Foods Recommended Notes Grains Whole-grain breads, muffins, bagels, or dimitri bread Vilonia bread Whole-wheat crackers or crisp breads Whole-grain or bran cereals Oatmeal, oat bran, or grits Wheat germ Whole-wheat pasta and brown rice Read the ingredients list on food labels. Look for products that list whole as the first ingredient (eg, whole-wheat, whole oats). Choose cereals with at least 2 grams of fiber per serving. Vegetables All vegetables, especially asparagus, maldonado sprouts, broccoli, [place] sprouts, cabbage, carrots, cauliflower, celery, corn, greens, green beans, green pepper, onions, peas, potatoes (with skin), snow peas, spinach, squash, sweet potatoes, tomatoes, zucchini For maximum fiber intake, eat the peels of fruits and vegetablesjust be sure to wash them well first. Fruits All fruits, especially apples, berries, grapefruits, mangoes, nectarines, oranges, peaches, pears, dried fruits (figs, dates, prunes, raisins) Choose raw fruits and vegetables over juice, cooked, or cannedraw fruit has more fiber. Dried fruitis also a good source of fiber. Milk With the exception of yogurt containing inulin (a type of fiber), dairy foods provide little fiber. Add more fiber by topping your yogurt or cottage cheese with fresh fruit, whole grain or bran cereals, nuts, or seeds. Meats and Beans All beans and peas, especially Garbanzo beans, kidney beans, lentils, garcia beans, split peas, and vega beans All nuts and seeds, especially almonds, peanuts, [place] nuts, cashews, peanut butter, walnuts, sesame and sunflower seeds All meat, poultry, fish, and eggs Increase fiber in meat dishes by adding vega beans, kidney beans, black-eyed peas, bran, or oatmeal. If you are following a low-fat diet, use nuts and seeds only in moderation. Fats and Oils All in moderation Fats and oils do not provide fiber Snacks, Sweets, and Condiments Fruit Nuts Popcorn, whole-wheat pretzels, or trail mix made with dried fruits, nuts, and seeds Cakes, breads, and cookies made with oatmeal or whole-wheat flour Most snack foods do not provide much fiber. Choose snacks with at least 2 grams of fiber per serving. Last Reviewed: September 2010 Josselin Baez MS, MPH, RD Updated: 10/03/2010 Colon Polypectomy (Colon Polyp Removal) Definition A colon polypectomy is the removal of polyps from the inside lining of the colon (large intestine).A polyp is a mass of tissue. Some types of polyps have the potential to develop into cancer. Most polyps can be removed during a colonoscopy or sigmoidoscopy . A Colon Polyp 2010 [employer] Reasons for Procedure The purpose of the surgery is to remove a polyp. It is done for cancer prevention. In rare cases, larger polyps can cause troublesome symptoms, such as rectal bleeding, abdominal pain, and bowel irregularities. A polyp removal will relieve these symptoms. Possible Complications Complications are rare, but no procedure is completely free of risk. If you are planning to have a polypectomy, your doctor will review a list of possible complications, which may include: Damage to the colon wall Bleeding Infection Adverse reaction to the sedative Factors that may increase the risk of complications include: Type, size, and location of the polyp Patient factors, such as blood-clotting disorders, substance abuse, or other diseases (eg, obesity , diabetes ) What to Expect Prior to Procedure Your doctor will likely do the following: Physical exam and health history Review of medicines Test your stool for hidden blood (called occult blood ) X-rays an exam that uses small amounts of radiation to make a picture of the inside of the body Barium enema x-ray exam that uses contrast to help better see the colon Diagnostic colonoscopy or sigmoidoscopyexamination of the inside of the intestine with an endoscope Your colon must be completely cleaned before the procedure. Any stool left in the intestine will block the view. This preparation may start several days before the procedure. Follow your doctor's instructions, which may include any of the following cleansing methods: Enemas fluid introduced into the rectum to stimulate a bowel movement Laxativesmedicines that cause you to have soft bowel movements A clear-liquid diet Oral cathartic medicinesa large container of fluid to drink, which stimulates a bowel movement Leading up to your procedure: Talk to your doctor about your medicines. You may be asked to stop taking some medicines up to one week before the procedure, like: Anti-inflammatory drugs (eg, aspirin) Blood thinners, like clopidogrel (Plavix) or warfarin (Coumadin) Iron supplements or vitamins containing iron. The night before, eat a light meal. Do not eat or drink anything after midnight. Wear comfortable clothing. If you have diabetes, ask your doctor if you need to adjust your insulin dose. Arrange for a ride home after the procedure. Anesthesia You will receive a sedative. This will help you relax. You will be drowsy but awake. Description of the Procedure You will be asked to lie on your side or on your back. A scope, a long flexible tube with a camera on the end, will be inserted through the anus. It will be slowly pushed through the rectum to the colon. The scope will also add air to open the colon. Using the scope, the doctor will locate the polyp. The polyp will be snipped off with a wire snare from the scope. In some cases, the polyp may be destroyed with an electric current. The electric current is also used to close the wound and stop bleeding. The polyps will then be removed for lab testing. When the doctor is finished, the scope will be slowly removed. For larger polyps, a laparoscopic surgical procedure may be needed. Special surgical tools will be inserted through small incisions in the abdomen. The tools will be used to locate and remove the polyp. How Long Will It Take? 30-60 minutes Will It Hurt? The special cleaning solution, laxatives, and/or enemas often cause discomfort. During and following the procedure, there is little or no pain. You may feel pressure, bloating, and/or cramping because of the air passed into the colon. This discomfort will go away with the passing of gas. Your doctor may prescribe pain medicine. If not, you can take non-prescription pain relievers for discomfort. Post-procedure Care At the [facility] The polyps will be sent to a lab for testing. At Home Expect a complete recovery within two weeks. To ensure a smooth recovery, be sure to follow your doctor's instructions , which may include: The sedative will make you drowsy. Do not drive, operate machinery, or make important decisions theday of the procedure. Return to your normal diet the same or next day. Avoid tea, coffee, cola drinks, alcohol, and spicyfoods for at least 2-3 days following surgery. These can irritate the digestive system. To speed healing, resume normal activities as soon as you feel able. Most people feel well enough by the next day. Ask your doctor when you can participate in any rigorous exercise. Ask your doctor about when it is safe to shower, bathe, or soak in water. You will be scheduled for a follow-up colonoscopy in the future. It will be important to check for recurrence of polyps. Your doctor will discuss the results with you either the day of surgery or the following day. Call Your Doctor After arriving home, contact your doctor if any of the following occurs: Signs of infection, including fever and chills Redness, swelling, increasing pain, excessive bleeding, or discharge from the rectum (Up to cup of blood per day can be expected for up to 3-4 days following your polypectomy.) Black, tarry stools Severe abdominal pain Hard, swollen abdomen Inability to pass gas or stool Cough , shortness of breath, chest pain, or severe nausea or vomiting New, unexplained symptoms In case of emergency, CALL 911 . Last Reviewed: June 2010 Raymond Lee MD Updated: 10/12/2010 EGD DISCHARGE INSTRUCTIONS Activity: Rest today. No driving, operating machinery, or making any important decisions today. May resume normal activity tomorrow. Diet: Following EGD eat slowly, chew food well, cut food into small pieces-Avoid greasy, spicy, crunchy foods X 48 hours. Call your Doctor if you have any of the following: -Passing blood rectally or vomiting blood (it may be red or black). -Persistent nausea/vomiting -Severe abdominal or chest pain not relieved with passing gas -Fever of 100 degrees or more -Redness or swelling at the IV site -Severe sore throat or neck pain documented [facility]Sal[facility] HospitalPiiku Phone: reason for visit Narrative* Auth/Cert Specialty Diagnoses / Procedures Referred By Elma t Referred To Contact Diagnoses Cystocele, unspecified (CODE) PELVIC PRESSURE CYSTOCELE Procedures ME ANTERIOR COLPORRAPHY RPR CYSTOCELE W/CYSTO VAGINAL ANTERIOR REPAIR Ino Brothers, DO [address] [facility], [address] [place] [address] [id number] [place] [address] Referral ID Status Reason Start Date Expiration Date Visits Re quested Visits Authorized [id number] 1 1 [employer] Phone: Summary Purpose Family History No Family History Records FoundNo Family History Records FoundNo Family History Records FoundNo Family History Records FoundNo Family History Records FoundNo Family History Records Found Advance Directives No Advanced Directives Records FoundDocuments on File Type Date Recorded Patient Ceo Ziff Davis Expl anation ACP-Advance Directive ACP-Power of Crop Consultant Latest Code Status on File Code Status Date Activated Date Inactivated Comments Full Code 03/14/2016 8:36 AM 03/15/2016 12:04 AM Documents on File Type Date Recorded Patient Ceo Ziff Davis Expl anation ACP-Advance Directive ACP-Power of Crop Consultant Latest Code Status on File Code Status Date Activated Date Inactivated Comments Full Code 03/14/2016 8:36 AM 03/15/2016 12:04 AM Documents on File Type Date Recorded Patient Ceo Ziff Davis Expl anation Advance Directives and Living Will Power of Crop Consultant Latest Code Status on File Code Status Date Activated Date Inactivated Comments Full Code 02/01/2022 6:09 AM Full Code 03/14/2016 8:36 AM 03/15/2016 12:04 AM Latest Code Status on File Code Status Date Activated Date Inactivated Comments Full Code 02/01/2022 6:09 AM 02/02/2022 12:51 PM Date Activated Date Inactivated Comments 02/01/2022 6:09 AM 02/02/2022 12:51 PM Date Activated Date Inactivated Comments 03/14/2016 8:36 AM 03/15/2016 12:04 AM Reason for Referral Status Reason Specialty Diagnoses / Procedures Referre d By Contact Referred To Contact Closed Radiology Diagnoses Visit for screening mammogram Procedures JORGE FABIAN DIGITAL SCREEN SELF REFERRAL W OR WO CAD BILATERAL [facility], [place] [address] Specialty Diagnoses / Procedures Referred By Elma pepe Referred To Contact Radiology Diagnoses Encounter for screening mammogram for malignant neoplasm of breast Procedures JORGE FABIAN DIGITAL SCREEN BILATERAL JORGE DIGITAL SCREEN W OR WO CAD BILATERAL [facility], [place] [address] Referral ID Status Reason Start Date Expiration Date Visits Re quested Visits Authorized [id number] Closed 12/15/2021 12/15/2022 1 1 Specialty Diagnoses / Procedures Referred By Elma t Referred To Contact Cardiology Diagnoses Pre-op testing Procedures EKG 12 lead In[facility], [place] [address] Referral ID Status Reason Start Date Expiration Date Visits Re quested Visits Authorized [id number] Open 01/16/2022 01/16/2023 1 1 Specialty Diagnoses / Procedures Referred By Contac t Referred To Contact Radiology Diagnoses Post-menopausal Procedures DEXA BONE DENSITY AXIAL SKELETON Ino Brothers, DO [address] [place] [address], [address] [place] [id number] Referral ID Status Reason Start Date Expiration Date V isits Requested Visits Authorized [id number] Pending Review 12/05/2021 12/05/2022 1 1 Additional Source Comments INFORMATION SOURCE (unrecogn ized section and content) DATE CREATED AUTHOR 12/31/2017 [facility] DATE CREATED AUTHOR AUTHOR'S ORGANIZ ATION 12/01/2021 [facility] d[facility] Specialist DATE CREATED AUTHOR AUTHOR'S ORGANIZ ATION 12/16/2022 [facility] DATE CREATED AUTHOR AUTHOR'S ORGANIZ ATION 04/02/2024 [facility] d[facility] Specialists EPIC DATE CREATED AUTHOR AUTHOR'S ORGANIZ ATION 04/27/2024 [facility] DATE CREATED AUTHOR AUTHOR'S ORGANIZ ATION 05/22/2024 [facility] Reason for Visit (unrecogniz ed section and content) Status Reason Specialty Diagnoses / Procedures Referre d By Contact Referred To Contact Closed Radiology Diagnoses Visit for screening mammogram Procedures JORGE FABIAN DIGITAL SCREEN SELF REFERRAL W OR WO CAD BILATERAL Rose [facility], DO [address] [place] [address], [address] [place] [id number] Specialty Diagnoses / Procedures Referred By Contac t Referred To Contact Radiology Diagnoses Encounter for screening mammogram for malignant neoplasm of breast Procedures JORGE FABIAN DIGITAL SCREEN BILATERAL JORGE DIGITAL SCREEN W OR WO CAD BILATERAL Ino Brothers, DO [address] [place] [address], [address] [place] [id number] Referral ID Status Reason Start Date Expiration Date Visits Re quested Visits Authorized [id number] Closed 12/15/2021 12/15/2022 1 1 Specialty Diagnoses / Procedures Referred By Contac t Referred To Contact Radiology Diagnoses Post-menopausal Procedures DEXA BONE DENSITY AXIAL SKELETON Ino Brothers, DO [address] [place] [address], [address] [place] [id number] Referral ID Status Reason Start Date Expiration Date V isits Requested Visits Authorized [id number] Pending Review 12/05/2021 12/05/2022 1 1 Specialty Diagnoses / Procedures Referred By Elma pepe Referred To Contact Radiology Diagnoses Encounter for screening mammogram for malignant neoplasm of breast Procedures JORGE FABIAN DIGITAL SCREEN BILATERAL JORGE DIGITAL SCREEN W OR WO CAD BILATERAL Beam, Samantha Churchill, MATERIAL ASSEMBLER - PERINATAL DIRECTOR [address] [facility] [address] [place] [address] Referral ID Status Reason Start Date Expiration Date Visits Re quested Visits Authorized [id number] Closed 04/12/2024 04/12/2025 1 1 Care Teams (unrecognized sec tion and content) Bit Setter Relationship Specialty Start Date End Date Candy Gee [address] [place] [address] PCP - General 11/25/15 Bit Setter Relationship Specialty Start Date End Date Candy Gee [address] [place] [address] PCP - General 11/25/15 Bit Setter Relationship Specialty Start Date End Date Candy Gee [address] [place] [address] PCP - General 11/25/15 Bit Setter Relationship Specialty Start Date End Date Candy Gee [address] [place] [address] PCP - General 11/25/15 Bit Setter Relationship Specialty Start Date End Date Candy Gee [address] [place] [address] PCP - General 11/25/15 Bit Setter Relationship Specialty Start Date End Date Candy Gee [address] [place] [address] PCP - General 11/25/15 Bit Setter Relationship Specialty Start Date End Date Candy Gee [address] [place] [address] PCP - General 11/25/15 Bit Setter Relationship Specialty Start Date End Date Candy Gee [address] [place] [address] PCP - General 11/25/15 Bit Setter Relationship Specialty Start Date End Date Candy Gee [address] [place] [address] PCP - General 11/25/15 Bit Setter Relationship Specialty Start Date End Date Cali Zhao MD [address] [place] [address] (Fax) PCP - [place] [employer] 10/06/20 Jose Cruz Young MD [address] [facility] [address] [place] [address] PCP - General Internal Medicine 11/23/22 Bit Setter Relationship Specialty Start Date End Date Cali Zhao MD [address] [place] [address] (Fax) PCP - [place] [employer] 10/06/20 Jose Cruz Young MD [address] [place] [address] PCP - General Internal Medicine 11/23/22 Bit Setter Relationship Specialty Start Date End Date Cali Zhao MD [address] [place] [address] (Fax) PCP - [place] [employer] 10/06/20 [facility] [address] [place] [address] PCP - General Family Medicine 08/15/23 Bit Setter Relationship Specialty Start Date End Date MalickCandy galloway BRITTANY Gilliam PCP - General 11/25/15 Scheduled Active and Recently Administ ered Medications (unrecognized section and content) Medication Order 09/27/2021 09/28/2021 09/29/2021 sodium chloride flush 0.9 % injection 5-40 mL 5-40 mL, IntraVENous, EVERY 12 HOURS SCHEDULED (2 times per day), First dose on Sat09/29/21 at 0900, Until Discontinued, For Line Patency: Peripheral IV = 5 mL; Midline or Central Line = 10 mL/lumen. If following IV push medication, administer flush at same rate as the IV push. Flush volume is determined by type of infusion therapy being given. For non-viscous solutions use: Peripheral IV = 5 mL Midline or Central Line = 10 mL/lumen For viscous solutions (i.e. blood components, parenteral nutrition, contrast media, or after obtaining blood sample) use: Peripheral IV = 10 mL Midline or Central Line = 20 mL/lumen, PACU only 0900 (Due)2100 (Due) Continuous Medication Order 09/27/2021 09/28/2021 09/29/2021 lactated ringers infusion IntraVENous, at 125 mL/hr, CONTINUOUS, Starting on Sat09/29/21 at 0800, Pre-op (day of surgery) 0807 (New Bag - Prov ider: Daryl Bridges RN)0949 (NoRateChange - Provider: Mark Zapata Jr., BORIS - RECOOPERER)1031 (Paused - Provider: Mark Zapata Jr., APRN - RECOOPERER - Comment: Switch to gravity)1032 (Restarted - Provider: Mark Zapata Jr., APRN - RECOOPERER) PRN Medication Order 09/27/2021 09/28/2021 09/29/2021 0.9 % sodium chloride infusion 25 mL, IntraVENous, at 100 mL/hr, PRN, If patient receiving piggyback infusions without ordered maintenance IV fluids or with frequent/long duration piggyback infusions, Starting on Sat09/29/21 at 0840, Administer at the same rate as the piggyback being infused., PACU only diphenhydrAMINE (BENADRYL) injection 12.5 mg 12.5 mg, IntraVENous, ONCE PRN, 1 dose, Starting on Sat09/29/21 at 0840, Until Sat09/29/21 at 2359, Itching, PACU only HYDROmorphone (DILAUDID) injection 0.5 mg HYDROmorphone (DILAUDID) 1.5mg IV is equivalent to morphine 10mg IV, 0.5 mg, IntraVENous, EVERY 5 MIN PRN, 4 doses, Starting on Sat09/29/21 at 0840, Until Discontinued, Pain Severe (7-10), Phase I - Initial therapy for severe pain., PACU only lidocaine PF 1 % injection 1 mL 1 mL, IntraDERmal, ONCE PRN, 1 dose, Starting on Sat09/29/21 at 0731, Until Sat09/29/21 at 2359, IV start, Pre-op (day of surgery) meperidine (DEMEROL) injection 12.5 mg 12.5 mg, IntraVENous, EVERY 5 MIN PRN, Starting on Sat09/29/21 at 0840, Until Discontinued, Shivering, , May give every 5 minutes to max of 50mg., PACU only ondansetron (ZOFRAN) injection 4 mg 4 mg, IntraVENous, ONCE PRN, 1 dose, Starting on Sat09/29/21 at 0840, Until Sat09/29/21 at 2359, Nausea, PACU only sodium chloride flush 0.9 % injection 5-40 mL 5-40 mL, IntraVENous, PRN, Starting on Sat09/29/21 at 0840, Until Discontinued, Line Care, After every IV line use, For Line Patency: Peripheral IV = 5 mL; Midline or Central Line = 10 mL/lumen. If following IV push medication, administer flush at same rate as the IV push. Flush volume is determined by type of infusion therapy being given. For non-viscous solutions use: Peripheral IV = 5 mL Midline or Central Line = 10 mL/lumen For viscous solutions (i.e. blood components, parenteral nutrition, contrast media, or after obtaining blood sample) use: Peripheral IV = 10 mL Midline or Central Line = 20 mL/lumen, PACU only Scheduled Medication Order 01/31/2022 02/01/2022 02/02/2022 ciprofloxacin (CIPRO) IVPB 400 mg (COMPLETED) 400 mg, IntraVENous, at 200 mL/hr, Administer over 60 Minutes, TRUST MANAGER TO O.R., On [place] 02/01/22 at 0630, For 1 dose, Administer within 1 hour prior to incision., Pre-op (day of surgery) 0803 (Given - Provider: Kam Polanco APRN - RECOOPERER) clindamycin (CLEOCIN) 900 mg in dextrose 5 % 50 mL IVPB (COMPLETED) 900 mg, IntraVENous, EVERY 8 HOURS, 2 doses, First dose on Sat02/01/22 at 1600, Last dose on Sat02/02/22 at 0000, Antimicrobial Indications: Surgical Prophylaxis 1605 (New Bag - Provider: Audrey Smith RN)1706 (Stopped - Provider: Kaya Marroquin RN)2330 (New Bag - Provider: Tram Chery RN) 0030 (Stopped - Provider: Tram Chery RN)0031 (Stopped - Provider: Tram Chery RN) docusate sodium (COLACE) capsule 100 mg 100 mg, Oral, 2 TIMES DAILY, First dose on Sat02/01/22 at 1030, Until Discontinued, Do not crush or break., Post-op 1105 (Given - Provider: Kaya Marroquin RN)2128 (Given - Provider: Tram Chery RN) 0828 (Given - Provider: Kaya Marroquin, ADRIENNE)2100 (Due) enoxaparin (LOVENOX) injection 40 mg 40 mg, SubCUTAneous, DAILY, First dose on Sat02/01/22 at 2100, Until Discontinued, Indication of Use: Prophylaxis-DVT/PE, Hold if Hgb <[address] Ksenia Herman via perfect serve, Post-op 2152 (Given - Provider: Tram Chery RN - Comment: awaiting for Rx approval) 2099 (Due - Provider: Yamileth Beltre [facility]) metoprolol tartrate (LOPRESSOR) tablet 25 mg 25 mg, Oral, DAILY, First dose on Sat02/02/22 at 0900, Until Discontinued 07 (Given - Provid er: Kaya L Marroquin, RN) metronidazole (FLAGYL) 500 mg in 0.9% NaCl 100 mL IVPB premix (COMPLETED) 500 mg, IntraVENous, at 100 mL/hr, Administer over 60 Minutes, TRUST MANAGER TO O.R., On Sat02/01/22 at 0630, For 1 dose, Administer within 1 hour prior to incision., Pre-op (day of surgery) 0749 (Given - Provider: Kam Polanco APRN - RECOOPERER) pantoprazole (PROTONIX) tablet 40 mg 40 mg, Oral, DAILY BEFORE BREAKFAST, First dose on Sat02/02/22 at 0700, Until Discontinued, Do not crush or break. Substituted for Omeprazole (PRILOSEC). 0658 (Given - Provid er: Tram Chery RN) sodium chloride flush 0.9 % injection 5-40 mL 5-40 mL, IntraVENous, EVERY 12 HOURS SCHEDULED (2 times per day), First dose on Adalgisa 02/01/22 at 1030, Until Discontinued, For Line Patency: Peripheral IV = 5 mL; Midline or Central Line = 10 mL/lumen. If following IV push medication, administer flush at same rate as the IV push. Flush volume is determined by type of infusion therapy being given. For non-viscous solutions use: Peripheral IV = 5 mL Midline or Central Line = 10 mL/lumen For viscous solutions (i.e. blood components, parenteral nutrition, contrast media, or after obtaining blood sample) use: Peripheral IV = 10 mL Midline or Central Line = 20 mL/lumen, Post-op 1030 (Not Given - Provider: Kaya Marroquin RN - Reason: IV Fluid Infusing)2100 (Not Given - Provider: Tram Chery RN - Reason: IV Fluid Infusing) 0900 (Due)2100 (Due) thyroid (ARMOUR) tablet 60 mg 60 mg, Oral, 2 times daily, First dose on Adalgisa 02/01/22 at 2100, Until Discontinued 232 (Given - Provider: Tram Chery RN - Comment: meds not available) 07 (Given - Provider: Kaya Marroquin RN)2099 (Due) Continuous Medication Order 01/31/2022 02/01/2022 02/02/2022 lactated ringers infusion (CANCELED) IntraVENous, at 125 mL/hr, CONTINUOUS, Starting on Sat02/01/22 at 0630, Pre-op (day of surgery) 0644 (New Bag - Provider: Miriam Tavares RN)0749 (NoRateChange - Provider: BORIS Carbajal CRNA)0852 (Paused - Provider: BORIS Carbajal CRNA - Comment: Switch to gravity)0853 (Restarted - Provider: BORIS Carbajal CRNA) lactated ringers infusion IntraVENous, at 125 mL/hr, CONTINUOUS, Starting on Adalgisa 02/01/22 at 1030, Post-op 1110 (New Bag - Provider: Kaya Marroquin RN)1110 (Rate/Dose Verify - Provider: Kaya Marroquin RN)1558 (Rate/Dose Change - Provider: Kaya Marroquin RN)1603 (Paused - Provider: Kaya Marroquin RN)1605 (Paused - Provider: Kaya Marroquin RN)1706 (Rate/Dose Change - Provider: Kaya Marroquin RN)1833 (Rate/Dose Verify - Provider: Kaya Marroquin RN)2156 (Rate/Dose Change - Provider: Tram Chery, ADRIENNE)2156 (Rate/Dose Change - Provider: Tram Chery RN) 0156 (Stopped - Provider: Tram Chery RN)0157 (New Bag - Provider: Tram Chery, ADRIENNE)0607 (Rate/Dose Verify - Provider: Tram Chery, ADRIENNE)0837 (Stopped - Provider: Kaya Marroquin RN) PRN Medication Order 01/31/2022 02/01/2022 02/02/2022 0.9 % sodium chloride infusion IntraVENous, at 5-250 mL/hr, PRN, if patient receiving piggyback infusions and maintenance fluids are not ordered OR KVO fluids to protect IV site / prevent frequent line interruptions/ long duration, Starting on Adalgisa 02/01/22 at 1003, For piggyback infusion, administer at same rate as piggyback for a total of 25 mL. Enter 25 mL into dose field and piggyback rate into rate field of order. If piggyback is infusing at a rate less than 100 mL/hr, enter 25 mL into dose field and 100 mL/hr into rate field of order. For KVO fluids, enter rate of 20 mL/hr or less into rate field of order., Post-op acetaminophen (TYLENOL) tablet 1,000 mg 1,000 mg, Oral, EVERY 6 HOURS PRN, Starting on [place] 02/01/22 at 1003, Until Discontinued, Other, Pain (1-10), Give in addition to any other pain medication ordered at same time for any pain indication. Maximum dose of acetaminophen is 4000mg from all sources in 24 hours. Alternate ibuprofen and acetaminophen every 4 hours., Post-op 1105 (Given - Provider: Kaya Marroquin, ADRIENNE)1920 (Given - Provider: Tram Chery, ADRIENNE) 0341 (Given - Provider: Tram Chery, ADRIENNE) Benzocaine-Menthol (CEPACOL SORE THROAT) 15-2.6 MG lozenge 1 lozenge 1 lozenge, Oral, EVERY 2 HOURS PRN, Starting on Adalgisa 02/01/22 at 2143, Until Discontinued, Sore Throat 2340 (Given - Provider: Tram Chery, ADRIENNE) conjugated estrogens (PREMARIN) vaginal cream (CANCELED) PRN, Starting on Adalgisa 02/01/22 at 0845, Intra-op 0845 (Given - Provider: Ino Brothers, DO - Comment: USED ON KERLIX PLACED IN VAGINA) HYDROmorphone (DILAUDID) injection 0.25 mg HYDROmorphone (DILAUDID) 1.5mg IV is equivalent to morphine 10mg IV, 0.25 mg, IntraVENous, EVERY 5 MIN PRN, 4 doses, Starting on Adalgisa 02/01/22 at 0857, Until Discontinued, Pain Moderate (4-6), Phase I - Initial therapy for moderate pain. HYDROmorphone (DILAUDID) injection 0.5 mg HYDROmorphone (DILAUDID) 1.5mg IV is equivalent to morphine 10mg IV, 0.5 mg, IntraVENous, EVERY 5 MIN PRN, 4 doses, Starting on Adalgisa 02/01/22 at 0857, Until Discontinued, Pain Severe (7-10), Phase I - Initial therapy for severe pain. ketorolac (TORADOL) injection 15 mg Ketorolac is contraindicated in patients with advanced renal impairment and in patients at risk of renal failure due to volume depletion. For 65 years of age and older OR weight less than 50 kg, use 15 mg IV every 6 hours; MAX dose: 60 mg/day. Dose greater than 30 mg must be administered via intramuscular route. Do not administer for more than 5 days., 15 mg, IntraVENous, EVERY 6 HOURS PRN, Starting on Adalgisa 02/01/22 at 1239, Until Sat02/06/22 at 1238, Pain 1-10, Do not administer for more than 5 days. melatonin tablet 3 mg 3 mg, Oral, NIGHTLY PRN, Starting on Adalgisa 02/01/22 at 2100, Until Discontinued, Sleep, Post-op 2340 (Given - Provider: Tram Chery, ADRIENNE) ondansetron (ZOFRAN) injection 4 mg(Linked Group 1) 4 mg, IntraVENous, EVERY 6 HOURS PRN, Starting on Adalgisa 02/01/22 at 1003, Until Discontinued, Nausea, Vomiting, Administer if oral route cannot be used., Post-op ondansetron (ZOFRAN-ODT) disintegrating tablet 4 mg(Linked Group 1) 4 mg, Oral, EVERY 6 HOURS PRN, Starting on Adalgisa 02/01/22 at 1003, Until Discontinued, Nausea, Vomiting, Post-op oxyCODONE (ROXICODONE) immediate release tablet 10 mg(Linked Group 2) 10 mg, Oral, EVERY 4 HOURS PRN, Starting on Adalgisa 02/01/22 at 1003, Until Discontinued, Pain Severe (7-10), Post-op oxyCODONE (ROXICODONE) immediate release tablet 5 mg(Linked Group 2) 5 mg, Oral, EVERY 4 HOURS PRN, Starting on Adalgisa 02/01/22 at 1003, Until Discontinued, Pain Moderate (4-6), Post-op phenazopyridine (PYRIDIUM) tablet 200 mg 200 mg, Oral, 3 TIMES DAILY PRN, Starting on Adalgisa 02/01/22 at 1407, Until Discontinued, Salgado Catheter Discomfort, Take with food. May cause discoloration of urine. 1445 (Given - Provider: Kaya Marroquin RN)7831 (Given - Provider: Tram Chery RN) 6087 (Given - Provider: Tram Chery RN) sodium chloride flush 0.9 % injection 5-40 mL 5-40 mL, IntraVENous, PRN, Starting on Adalgisa 02/01/22 at 1003, Until Discontinued, Line Care, After every IV line use, For Line Patency: Peripheral IV = 5 mL; Midline or Central Line = 10 mL/lumen. If following IV push medication, administer flush at same rate as the IV push. Flush volume is determined by type of infusion therapy being given. For non-viscous solutions use: Peripheral IV = 5 mL Midline or Central Line = 10 mL/lumen For viscous solutions (i.e. blood components, parenteral nutrition, contrast media, or after obtaining blood sample) use: Peripheral IV = 10 mL Midline or Central Line = 20 mL/lumen, Post-op Linked Groups Order Group 1: ondansetron (ZOFRAN-ODT) disintegrating tablet 4 mgJump to med 4 mg, Oral, EVERY 6 HOURS PRN, Starting on Adalgisa 02/01/22 at 1003, Until Discontinued, Nausea, Vomiting, Post-op Or ondansetron (ZOFRAN) injection 4 mgJump to med 4 mg, IntraVENous, EVERY 6 HOURS PRN, Starting on Adalgisa 02/01/22 at 1003, Until Discontinued, Nausea, Vomiting
Administer if oral route cannot be used.
Post-op Group 2: oxyCODONE (ROXICODONE) immediate release tablet 5 mgJump to med 5 mg, Oral, EVERY 4 HOURS PRN, Starting on Adalgisa 02/01/22 at 1003, Until Discontinued, Pain Moderate (4-6), Post-op Or oxyCODONE (ROXICODONE) immediate release tablet 10 mgJump to med 10 mg, Oral, EVERY 4 HOURS PRN, Starting on Adalgisa 02/01/22 at 1003, Until Discontinued, Pain Severe (7-10), Post-op Ordered Prescriptions (unrec ognized section and content) Prescription Sig Dispensed Refills Start Date End Da te ciprofloxacin (CIPRO) 500 MG tablet Take 1 tablet by mouth in the morning and 1 tablet before bedtime. Do all this for 7 days. 14 tablet 0 02/01/2022 02/08/2022 docusate sodium (COLACE) 100 MG capsule Take 1 capsule by mouth 2 times daily as needed for Constipation 60 capsule 0 02/01/2022 acetaminophen (TYLENOL) 500 MG tablet Take 2 tablets by mouth every 6 hours as needed for Pain 80 tablet 1 02/01/2022 03/03/2022 FOR RECORDS PERTAINING TO PATIENTS WHO ARE OR HAVE BEEN ENROLLED IN A CHEMICAL DEPENDENCY/SUBSTANCEABUSE PROGRAM, SOME INFORMATION MAY BE OMITTED. This clinical summary was aggregated from multiple sources. Caution should be exercised in using it in the provision of clinical care. This summary normalizes information from multiple sources, and as a consequence, information in this document may materially change the coding, format and clinical context of patient data. In addition, data may be omitted in some cases. CLINICAL DECISIONS SHOULD BE BASED ON THE PRIMARY CLINICAL RECORDS. [facility]. provides no warranty or guarantee of the accuracy or completeness of information in this document.
--- NOTE | 2024-06-01 07:12 | CA_ITS ---
Patient Name: CHESTER UGALDE MR#: [id number] : 1960 Exam Date: 06/01/2024 Ordering Doctor: DR ARLENE HADDAD M.D. ECHOCARDIOGRAM REPORT PROCEDURE: CA ECHO DOPPLER COMPLETE INDICATIONS: Palpitations, GARCIA COMPARISON: None. DESCRIPTION: COMPLETE ECHOCARDIOGRAM Real-time transthoracic echocardiography with 2D, M-mode, spectral and color flow Doppler performed. QUALITY: Technical quality was good. LEFT VENTRICLE: Normal chamber size. Normal left ventricular wall thickness. Global left ventricular systolic function is normal. LV EF: Estimated left ventricular ejection fraction is 55%. DIASTOLIC: Grade II diastolic dysfunction. ATRIAL SEPTUM: LEFT ATRIUM: Mild dilatation. RIGHT ATRIUM: Mild dilatation. RIGHT VENTRICLE: Normal chamber size. Normal right ventricular systolic function. TRICUSPID VALVE: Normal mobility and thickness. No stenosis with mild regurgitation. Mild pulmonary hypertension. RVSP 36 mmHg MITRAL VALVE: Normal mobility and thickness. No evidence of mitral valve stenosis. There is no mitral annular calcification. Mild mitral regurgitation. AORTIC VALVE: Normal trileaflet appearance. No visible sclerosis. Normal leaflet mobility. No evidence of aortic valve stenosis. Trivial aortic regurgitation. AORTIC ROOT: Normal diameter and appearance, measuring 3.1 cm. Normal size ascending aorta measuring 3.3 cm. PULMONIC VALVE: Normal thickness and mobility. No stenosis. Trivial regurgitation. PERICARDIUM: No evidence of pericardial effusion. IVC: Collapses with inspirations. Mildly dilated measuring 2.4 cm. PLEURA: CONCLUSION: 1. The left medical is normal in size and exhibits normal systolic function. LVEF is estimated at 55%. 2. Normal right ventricular size and systolic function. 3. Mild biatrial dilatation. 4. Grade 2 diastolic dysfunction. 5. Mild mitral and tricuspid regurgitation. 6. Mildly elevated right-sided pressures. Adult Echocardiography Procedure Report Left Ventricle LVEDD (3.7 - 5.6 cm): 5.14 cm LVESD (2.2 - 4.0 cm): 3.67 cm LVIVS thickness (0.6 - 1.2 cm): 0.75 cm LVPW thickness (0.5 - 1.0 cm): 0.71 cm e': 0.11 m/s E - e': 6.41 LVOT Max Gradient: 4.32 mm[Hg] LVOT Area (cm2): 1.04 m/s Peak Velocity (LVOT): 1.04 m/s Mean Velocity (LVOT): 0.68 m/s LVOT Diameter 2.19 cm Left Ventricular Ejection Fraction: 55 % Left Atrium LA Volume Index (2D A2C): 39.15 ml/m2 Left Atrium Systolic Dimension: 4.39 cm Mitral Valve MV E to A Ratio: 0.78, 0.81 Mitral Valve A-Wave Peak Velocity: 0.86 m/s Mitral Valve E-Wave Peak Velocity: 0.69 m/s Right Ventricle RV Internal Diastolic Dimension: 2.92 cm Aorta AO Root Diam: 3.06 cm Ascending Ao Diam: 3.27 cm Aortic Valve AoV Area (Peak Pedro): 2.87 cm2, 2.87 cm2 AoV Area (VTI): 2.96 cm2, 2.96 cm2 Peak Velocity(Antegrade Flow): 1.37 m/s Peak Gradient(Antegrade Flow): 7.50 mm[Hg] Mean Velocity(Antegrade Flow): 0.90 m/s Mean Gradient(Antegrade Flow): 3.71 mm[Hg] Velocity Time Integral: 33.80 cm Tricuspid Valve Peak Velocity (Regurgitant Flow): 2.19 m/s, 2.18 m/s, 2.66 m/s Pulmonic Valve Peak Velocity: 0.81 m/s Peak Gradient: 2.58 mm[Hg], 2.72 mm[Hg] Right Atrium Right Atrium Systolic Pressure: 55.72 ml, 55.72 ml Dictated by: Bar Lemus M.D. on 06/01/2024 at 09:30 Approved by: Bar Lemus M.D. on 06/01/2024 at 09:35
[2024-06-01] MEDS: REGADENOSON 0.4 MG/5 ML SYRINGE IV (09:15)
== END 2024-06-01 07:09 | disposition home or self-care (01) ==
LOC: NM 07:08
PROVIDERS: PCP Physician Assistant; Visit Provider Internal Medicine Interventional Cardiology
DX: R06.02 Shortness of breath (principal); R00.2 Palpitations
CPT/HCPCS: 78452; 93017; 93306; A9500; J2785

== ENCOUNTER 2024-07-11 08:17 | Outpatient (OUT) | payer BC, SELFPAY ==
[2024-07-11 09:32] LABS: Anion Gap 12.5; BUN Creatinine Ratio 13.2; Calcium 9.1 mg/dL (8.5-10.1); Carbon Dioxide 28.8 mmol/L (21.0-32.0); Chloride 108 mmol/L (98-107); Estimated GFR (African America >60 (>=60 mL/min/1.73m^2); Estimated GFR (Non-African Ame >60 (>=60 mL/min/1.73m^2); Glucose 89 mg/dL (74-106); Potassium 4.3 mmol/L (3.5-5.1); Sodium 145 mmol/L (136-145)
== END 2024-07-11 08:18 | disposition home or self-care (01) ==
LOC: LAB 08:19
PROVIDERS: PCP Physician Assistant; Visit Provider Internal Medicine Interventional Cardiology
DX: I50.9 Heart failure, unspecified (principal)
CPT/HCPCS: 36415; 80048

== ENCOUNTER 2024-07-11 09:55 | Outpatient (OUT) | payer BC, SELFPAY ==
[2024-07-11 10:22] LABS: TSH W/ REFLEX FT4 0.573 uIU/mL (0.358-3.740)
== END 2024-07-11 09:56 | disposition home or self-care (01) ==
LOC: LAB 09:56
PROVIDERS: PCP Physician Assistant; Visit Provider Physician Assistant
DX: E03.9 Hypothyroidism, unspecified (principal); I50.9 Heart failure, unspecified
CPT/HCPCS: 36415; 84443

== ENCOUNTER 2024-12-09 06:56 | Outpatient (OUT) | payer BC, SELFPAY ==
--- OUTSIDE RECORDS SUMMARY | 2024-12-09 07:03 | XMS_ITS | CCD ---
Author Organization [facility] Care Team Providers Care Window Shade Estimator Name Role Phone CANDY GEE Unavailable Unavailable CANDY GEE Unavailable Unavailable CANDY GEE Unavailable Unavailable Candy Gee Primary Care Provider [phone] Candy Gee Primary Care Provider Candy Gee Primary Care Provider Cali Zhao MD Unavailable Jose Cruz Young MD Primary Care Provider [phone] Candy Patterson Primary Care Provider [phone] Candy Gee PA-C Primary Care Provider [phone] SAMANTHA WEAVER Referring Unavailable CANDY GEE Primary Care Unavailable Unavailable Primary Care Provider UnavailVIK Haddad Referring Unavailable ELTAHAWY, EHAB Attending Unavailable BUSHRATAWAYNEY, EHAB Attending Unavailable VIK MCARTHUR Attending Unavailable VIK MCARTHUR Attending Unavailable ALEJANDRO CEBALLOS Attending Unavailable CANDY GEE Attending Unavailable CANDY GEE Attending Unavailable CANDY GEE Referring Unavailable CANDY GEE Attending Unavailable HemCandy Franz Primary Care Provider CHANA HURTADO Attending Unavailable CANDY GEE Referring Unavailable CANDY GEE Primary Care Unavailable SAMANTHA WEAVER Referring Unavailable CANDY GEE Primary Care Unavailable Allergies Allergy Classification Reported Allergen(s) Allergy Type Date of Onset Reaction(s) Facility NSAIDs (2 sources) celecoxib Drug Allergy 2 Other (See Comments) [facility] Penicillins (antibiotic) (1 source) Penicillins Drug Allergy 2 Swelling [facility] (20 sources) celecoxib; Translations: [celecoxib] Drug Allergy 2 Other (See Comments), GI Bleeding [facility] Repository (1 source) penicillin; Translations: [penicillin] Drug Allergy [facility] Repository (20 sources) Shellfish-Deriv ed Products Propensity to adverse reactions to drug 2 Diarrhea, Nausea And Vomiting, GI intolerance, Other [employer] (14 sources) meloxicam; Translations: [MELOXICAM] Drug Allergy 8 Other (See Comments) [employer] (20 sources) Penicillins; Translations: [PENICILLINS] Propensity to adverse reactions to drug 2 Swelling, Angioedema [employer] Work Phone: (20 sources) gabapentin; Translations: [GABAPENTIN] Drug Allergy 2 Nausea Only, Nausea And Vomiting [facility] [employer] (14 sources) meloxicam Drug Allergy 3 Other [facility] (2 sources) Seafood Propensity to adverse reactions to drug 2 Diarrhea, Nausea And Vomiting [facility] [employer] (1 source) Shellfish; Translations: [SHELLFISH DERIVED] Propensity to adverse reactions to drug (disorder) 4 [facility] Repository (1 source) Shellfish Propensity to adverse reactions to drug 4 Diarrhea [facility] [employer] Medications Current Medications Medication Drug Class(es) Dates Sig (Normalized) Sig (Original) acetaminophen 500 mg oral tablet (8 sources) Start: 02-01-2022 End: 03-03-2022 take 2 tablets by mouth every six hours as needed for pain acetaminophen (TYLENOL) 500 MG tablet Take 2 tablets by mouth every 6 hours as needed for Pain 80 tablet 1 02/01/2022 Active Start: 02-01-2022 1,000 mg, Oral , EVERY 6 HOURS PRN, Starting on Adalgisa 02/01/22 at 1003, Until Discontinued, Other, Pain (1-10) Give in addition to any other pain medication ordered at same time for any pain indication. Maximum dose of acetaminophen is 4000mg from all sources in 24 hours. Alternate ibuprofen and acetaminophen every 4 hours. Post-op take 2 tablets by mo uth every eight hours as needed for pain acetaminophen (Tylenol 8 Hour) 650 MG ER tablet Take 2 tablets by mouth every 8 (eight) hours if needed for mild pain Do not crush, chew, or split. Active Aloe Vera 25 MG CAPS (2 sources) take 1 tablet by arsalan th once daily Aloe Vera 25 MG CAPS Take 1 tablet by mouth daily Active Aloe Vera 25 MG capsule (14 sources) take 1 tablet by arsalan th once daily Aloe Vera 25 MG capsule Take 1 tablet by mouth 1 (one) time each day Active take 1 tablet by mouth once mat y Aloe Vera 25 MG capsule Take 1 tablet by mouth 1 (one) time each day 0 Active amitriptyline hydrochloride 25 mg oral tablet (6 sources) Tricyclic Antidepressant Start: 04-28-2018 End: 09-29-2021 amitriptyline (ELAVIL) 25 MG tablet 50 mg 0 04/28/2018 09/29/2021 Discontinued (LIST CLEANUP) End: 11-20-2024 take 1 tablet by mouth once daily amitriptyline (ELAVIL) 50 mg tablet Take 50 mg by mouth nightly. 11/20/2024 Discontinued baclofen 10 mg oral tablet (18 sources) gamma-Aminobutyric Acid-ergic Agonist Start: 01-02-2023 End: 07-30-2024 take 1 tablet by mouth once daily as needed baclofen (LIORESAL) 10 MG tablet Take 1 tablet by mouth nightly as needed 01/02/2023 Active benzocaine 15 mg / menthol 2.6 mg oral lozenge (1 source) Standardized Chemical Allergen Start: 02-01-2022 Benzocaine-Menth ol (CEPACOL SORE THROAT) 15-2.6 MG lozenge 1 lozenge biotin 1 mg chewable tablet (2 sources) Biotin 1000 MCG CHEW Take by mouth Active Biotin w/ Vitamins C & E (HAIR SKIN & NAILS GUMMIES PO) (14 sources) take 1 tablet by mouth in the morning Biotin w/ Vitamins C & E (HAIR SKIN & NAILS GUMMIES PO) Take 1 tablet by mouth in the morning. Active take 1 tablet by mouth in the mo rning Biotin w/ Vitamins C & E (HAIR SKIN & NAILS GUMMIES PO) Take 1 tablet by mouth in the morning. 0 Active bisacodyl 5 mg delayed release oral tablet (3 sources) Stimulant Laxative Start: 07-28-2021 End: 09-29-2021 bisacodyl (BISACODYL) 5 MG EC tablet Follow instructions provided given by the physician's office. 4 tablet 0 07/28/2021 09/29/2021 Discontinued (Therapy completed) calcium chloride 0.0014 meq/ml / potassium chloride 0.004 meq/ml / sodium chloride 0.103 meq/ml / sodium lactate 0.028 meq/ml injectable solution (3 sources) Start: 02-01-2022 IntraVENous, a t 125 mL/hr, CONTINUOUS, Starting on Adalgisa 02/01/22 at 1030, Post-op Start: 02-01-2022 End: 02-01-2022 lactated ringers infusion Start: 09-29-2021 lactated ringe rs infusion cholecalciferol 0.125 mg oral tablet (20 sources) Vitamin D take 2 tablets by mouth once daily vitamin D3 (CHOLECALCIFEROL) 125 MCG (5000 UT) TABS tablet Take 2 tablets by mouth daily Active take 1 tablet by mouth in the mo rning cholecalciferol, vitamin D3, 5,000 units tablet Take 1 tablet (5,000 Units total) by mouth in the morning. Active ciprofloxacin 500 mg oral tablet (1 source) Quinolone Antimicrobial Start: 02-01-2022 End: 02-08-2022 take 1 tablet by mouth in the morning ciprofloxacin (CIPRO) 500 MG tablet Take 1 tablet by mouth in the morning and 1 tablet before bedtime. Do all this for 7 days. 14 tablet 0 02/01/2022 02/08/2022 Active dapsone 0.075 mg/mg topical gel (5 sources) Sulfone Start: 10-18-2017 End: 09-29-2021 ACZONE 7.5 % GEL APPLY TO FACE ONCE DAILY 0 10/18/2017 09/29/2021 Discontinued (LIST CLEANUP) diclofenac sodium 0.01 mg/mg topical gel (13 sources) Nonsteroidal Anti-inflammatory Drug diclofenac sodium (VOLTAREN) 1 % GEL Apply 2 g topically 2 times daily Active 1 ml diphenhydrAMINE hydrochloride 50 mg/ml cartridge (1 source) Histamine-1 Receptor Antagonist Start: 09-29-2021 End: 09-29-2021 diphenhydrAMINE (BENADRYL) injection 12.5 mg docusate sodium 100 mg oral capsule (3 sources) Start: 02-01-2022 take 1 capsule by mouth twice daily as needed for constipation docusate sodium (COLACE) 100 MG capsule Take 1 capsule by mouth 2 times daily as needed for Constipation 60 capsule 0 02/01/2022 Active Elderberry preparation (14 sources) take 1 tablet by mouth in the morning ELDERBERRY PO Take 1 tablet by mouth in the morning. Active take 1 tablet by mouth in the mo rning ELDERBERRY PO Take 1 tablet by mouth in the morning. 0 Active estrogens, conjugated (jail) 0.625 mg/ml vaginal cream (6 sources) Estrogen Start: 04-02-2022 End: 08-15-2023 Premarin 0.625 MG/GM cream insert 0.5 gram [...] ketorolac (TORADOL) injection 15 mg levothyroxine sodium 0.05 mg oral tablet (20 sources) l-Thyroxine Start: 11-20-2024 take 1 tablet by mouth in the morning levothyroxine (SYNTHROID) 50 MCG tablet Indications: Acquired hypothyroidism Take 1 tablet (50 mcg total) by mouth in the morning. 90 tablet 3 11/20/2024 Active Start: 04-02-2024 End: 11-20-2024 take 1 tablet by mouth in the morning levothyroxine (Synthroid, Levoxyl) 150 MCG tablet Indications: Wanda's disease (CMS/HCC) Take 1 tablet (150 mcg) by mouth in the morning. Take on an empty stomach.. 90 tablet 3 07/30/2024 Active Start: 02-13-2024 take 1 tablet by arsalan th in the morning levothyroxine (Synthroid, Levoxyl) 125 MCG tablet Indications: Wanda's disease (CMS/HCC) Take 1 tablet (125 mcg) by mouth in the morning. Take on an empty stomach.. 02/13/2024 Active Start: 07-25-2023 End: 08-15-2023 take 1 tablet by mouth once daily in the morning levothyroxine (Synthroid, Levoxyl) 125 MCG tablet Indications: Wanda's disease (CMS/HCC) take 1 tablet by mouth every morning ON AN EMPTY STOMACH 30 tablet 3 07/25/2023 08/15/2023 Discontinued (Ineffective) End: 11-20-2024 take 1 capsule by mouth once daily levothyroxine sodium (TIROSINT) 112 mcg capsule Take 112 mcg by mouth daily. 11/20/2024 Discontinued take 1 tablet by arsalan th once daily levothyroxine (SYNTHROID) 112 MCG tablet Take 112 mcg by mouth Daily 0 Suspended 10 ml lidocaine hydrochloride 10 mg/ml injection (1 source) Antiarrhythmic, Amide Local Anesthetic Start: 09-29-2021 End: 09-29-2021 lidocaine PF 1 % injection 1 mL loratadine 10 mg oral tablet (12 sources) take 1 tablet by mouth every twenty-four hours as needed loratadine (Claritin) 10 MG tablet Take 10 mg by mouth Daily as needed for allergies Active 1 ml meperidine hydrochloride 25 mg/ml cartridge (1 source) Opioid Agonist Start: 09-29-2021 meperidine (DEMEROL) injection 12.5 mg metoprolol tartrate 25 mg oral tablet (19 sources) beta-Adrenergic Chinyere Start: 07-10-2024 End: 10-23-2025 take 1 tablet by mouth in the morning, then take 1 tablet by mouth at bedtime metoprolol tartrate (LOPRESSOR) 25 mg tablet Take 1 tablet (25 mg total) by mouth in the morning and 1 tablet (25 mg total) before bedtime. 07/10/2024 10/23/2025 Active Start: 05-20-2024 End: 05-20-2025 take 1 tablet by mouth twice daily metoprolol tartrate (LOPRESSOR) 25 MG tablet Take 1 tablet by mouth 2 times daily 05/20/2024 05/20/2025 Active Start: 02-02-2022 take 25 mg by mouth once daily 25 mg, Oral, DAILY, First dose on Sat02/02/22 at 0900, Until Discontinued omeprazole 20 mg delayed release oral capsule (13 sources) Proton Pump Inhibitor Start: 12-21-2021 take [...] 30 capsule 3 02/25/2020 Active Start: 04-10-2019 End: 11-20-2024 take 1 capsule by mouth once daily omeprazole (PRILOSEC) 20 MG delayed [...] (PYRIDIUM) tablet 200 mg polyethylene glycol 3350 [id number] mg powder for oral solution (3 sources) [...] B12 (1 source) Vitamin B12 Vitamin B1-B12 5.5-0.0125 MG/5ML SOLN Inject into the muscle every 30 days. 0 Active thyroid (jail) 60 mg oral tablet (11 sources) Start: 11-20-2024 take 1 tablet by mouth once daily thyroid (ARMOUR) 60 MG tablet Take 1 tablet by mouth daily 11/20/2024 Active Start: 11-20-2024 take 1 tablet by arsalan th in the morning thyroid, pork, (ARMOUR THYROID) 60 mg tablet Indications: Acquired hypothyroidism Take 1 tablet (60 mg total) by mouth in the morning. 90 tablet 3 11/20/2024 Active Start: 08-15-2023 take 1 tablet by arsalan th in the morning thyroid (MACHINE OPERATOR HELPER Thyroid) 60 MG tablet Indications: Acquired hypothyroidism (CMS/HCC) , ESS (euthyroid sick syndrome) Take 1 tablet (60 mg) by mouth in the morning. 30 tablet 2 08/15/2023 Active Start: 08-15-2023 take 1 tablet by arsalan th in the morning thyroid (MACHINE OPERATOR HELPER Thyroid) 60 MG tablet Indications: Acquired hypothyroidism (CMS/HCC) , ESS (euthyroid sick syndrome) Take 1 tablet (60 mg) by mouth in the morning. 30 tablet 2 08/15/2023 Active Start: 12-19-2021 take 60 mg by mouth twice daily 60 mg, Oral, 2 times daily, First dose on Adalgisa 02/01/22 at 2100, Until Discontinued Start: 11-09-2021 take 1 tablet by arsalan th twice daily MACHINE OPERATOR HELPER THYROID 90 MG tablet take 1 tablet by mouth twice a day ON AN EMPTY STOMACH 0 11/09/2021 Active take 1 tablet by arsalan th once daily in the morning MACHINE OPERATOR HELPER THYROID 60 MG tablet Take 1 tablet by mouth every morning Active 1 ml triamcinolone acetonide 40 mg/ml prefilled syringe (5 sources) Corticosteroid Start: 07-30-2024 triamcinolone acetonide (Kenalog-40) injection 40 mg Start: 07-30-2024 triamcinolone acetonide (Kenalog-40) injection 40 mg End: 08-15-2023 take 1 spray(s) nasal route once daily triamcinolone (Nasacort Allergy 24HR) 55 MCG/ACT nasal inhaler Administer 1 spray into each nostril 1 (one) time each day at the same time. 0 08/15/2023 Discontinued (Therapy completed) Vitamin B1-B12 5.5-0.0125 MG /5ML SOLN (10 sources) Vitamin B1-B12 5 .5-0.0125 MG/5ML SOLN Inject into the muscle every 30 days. 0 Suspended Vitamin B1-B12 5 .5-0.0125 MG/5ML SOLN Inject into the muscle every 30 days. 0 Active vitamin k2 0.04 mg oral tabl et (1 source) vitamin K2 40 mc g tablet Take by mouth. Active Completed/Discontinued Medications Medication Drug Class(es) Dates Sig (Normalized) Sig (Original) apixaban 2.5 mg oral tablet (1 source) Factor Xa Inhibitor Start: 04-10-2021 End: 11-20-2024 take 1 tablet by mouth twice daily apixaban (ELIQUIS) 2.5 mg tablet Take 1 tablet (2.5 mg total) by mouth 2 (two) times a day. 60 tablet 04/10/2021 11/20/2024 Discontinued BD Disp Needle 23G X 1 misc (11 sources) Start: 09-14-2022 End: 07-30-2024 BD Disp Needle 23G X 1 misc inject IM Once a month 90 days 09/14/2022 07/30/2024 Discontinued (Other) Start: 09-14-2022 BD Disp Needle 23G X 1 misc inject IM Once a month 90 days 09/14/2022 Active Start: 09-14-2022 BD Disp Needle 23G X 1 misc inject IM Once a month 90 days 0 09/14/2022 Active 50 ml clindamycin 18 mg/ml injection (1 [...] Dr. Ksenia Herman via perfect serve Post-op 12 hr guaiFENesin 600 mg extended release oral tablet (1 source) Start: 04-10-2021 End: 11-20-2024 take 1 tablet by mouth once guaiFENesin (MUCINEX) 600 mg tablet extended release 12hr Take 1 tablet (600 mg total) by mouth every 12 (twelve) hours. 60 tablet 3 04/10/2021 11/20/2024 Discontinued magnesium citrate 58.2 mg/ml oral solution (2 [...] Sat02/01/22 at 2100, Until Discontinued, Sleep, Post-op pantoprazole 40 mg delayed release oral tablet (1 source) Proton Pump Inhibitor Start: 02-02-2022 take 40 mg by mouth once daily before breakfast 40 mg, Oral, DAILY BEFORE BREAKFAST, First dose on Sat02/02/22 at 0700, Until Discontinued Do not crush or break. Substituted for Omeprazole (PRILOSEC). vitamin b12 1 mg/ml injectable solution (20 sources) Vitamin B12 Start: 12-31-2021 End: 07-30-2024 cyanocobalamin (Vitamin B-12) 1000 MCG/ML injection Inject 1,000 mcg into the shoulder, thigh, or buttocks every 30 (thirty) days. 12/31/2021 07/30/2024 Discontinued (Other) Start: 10-02-2021 cyanocobalamin 1000 MCG/ML injection inject 1 milliliter ( 1000 MCG ) intramuscularly Every Month 0 10/02/2021 Active End: 11-20-2024 cyanocobalamin, vitamin B-12 , 1,000 mcg/mL kit Inject 1,000 mcg as directed every 28 days. 11/20/2024 Discontinued take 1 tablet by arsalan th once daily Cyanocobalamin (VITAMIN B 12 PO) Take 1 tablet by mouth daily. 0 Suspended take 1 tablet by arsalan th once daily Cyanocobalamin (VITAMIN B 12 PO) Take 1 tablet by mouth daily. 0 Active Problems Active Problems Problem Classification Problem Date Documented Da te Episodic/Chronic Blindness and vision defects (1 source) Abnormal vision 04-17-2012 Chronic Blindness and vision defects (20 sources) Abnormal vision; Translations: [Unspecified visual disturbance] Onset: 4 04-17-2012 Episodic Calculus of urinary tract (20 sources) History of calculus of kidney; Translations: [Personal history of urinary calculi] Onset: 3 04-17-2012 Episodic Cardiac dysrhythmias (16 sources) Paroxysmal supraventricular tachycardia; Translations: [PSVT (paroxysmal supraventricular tachycardia)] Onset: 4 05-06-2024 Chronic Cardiac dysrhythmias (20 sources) Palpitations; Translations: [Palpitations] Onset: 3 04-17-2012 Episodic Congestive heart failure; nonhypertensive (2 sources) Chronic diastolic (congestive) heart failure; Translations: [Chronic diastolic (congestive) heart failure] Onset: 4 Chronic Disorders of lipid metabolism (4 sources) Raised low density lipoprotein cholesterol; Translations: [Pure hypercholesterolemia, unspecified] Onset: 5 10-14-2024 Chronic Diverticulosis and diverticulitis (20 sources) Diverticulosis of colon; Translations: [Diverticulosis of large intestine without perforation or abscess without bleeding] Onset: 2 Resolved: 4 11-20-2021 Chronic Esophageal disorders (20 sources) Gastroesophageal reflux disease; Translations: [Gastro-esophageal reflux disease without esophagitis] Onset: 1 Resolved: 4 Chronic Genitourinary symptoms and ill-defined conditions (20 sources) Overflow incontinence of urine; Translations: [Overflow incontinence] Onset: 2 Chronic Heart valve disorders (14 sources) Non-rheumatic mitral regurgitation ; Translations: [Nonrheumatic mitral (valve) insufficiency] Onset: 4 06-01-2024 Chronic Immunity disorders (16 sources) Disorder of immune function; Translations: [Other specified disorders involving the immune mechanism, not elsewhere classified] Onset: 3 01-01-2023 Chronic Immunizations and screening for infectious disease (2 sources) Encounter for screening for human papillomavirus (HPV); Translations: [Encounter for screening for human papillomavirus (HPV)] Onset: 5 Episodic Malaise and fatigue (20 sources) Chronic fatigue syndrome; Translations: [Chronic fatigue, unspecified] Onset: 2 11-20-2021 Chronic Nutritional deficiencies (20 sources) Vitamin D deficiency; Translations: [Vitamin D deficiency, unspecified] Onset: 2 11-20-2021 Chronic Osteoarthritis (20 sources) Arthritis; Translations: [Unspecified osteoarthritis, unspecified site] Onset: 2 Resolved: 4 04-17-2012 Chronic Other and ill-defined heart disease (7 sources) Diastolic dysfunction; Translations: [Other ill-defined heart diseases] Onset: 4 06-01-2024 Chronic Other gastrointestinal disorders (20 sources) Irritable bowel syndrome with diarrhea; Translations: [Irritable bowel syndrome with diarrhea] Onset: 2 11-20-2021 Chronic Other liver diseases (4 sources) Lesion of liver; Translations: [Liver disease, unspecified] 10-14-2024 Chronic Other nervous system disorders (14 sources) Median neuropathy; Translations: [Other lesions of median nerve, unspecified upper limb] Onset: 2 11-20-2021 Chronic Other nervous system disorders (20 sources) Chronic pain; Translations: [Other chronic pain] Onset: 2 11-20-2021 Chronic Other nervous system disorders (10 sources) Bilateral disorder of median nerves; Translations: [Other lesions of median nerve, bilateral upper limbs] Onset: 3 01-01-2023 Chronic Other nutritional; endocrine; and metabolic disorders (20 sources) Lipoprotein deficiency disorder; Translations: [Lipoprotein deficiency] Onset: 2 11-20-2021 Chronic Other nutritional; endocrine; and metabolic disorders (8 sources) Obesity; Translations: [Obesity, unspecified] Onset: 2 11-20-2021 Chronic Other nutritional; endocrine; and metabolic disorders (16 sources) Obesity caused by energy imbalance; Translations: [Other obesity due to excess calories] Onset: 3 12-25-2022 Chronic Other nutritional; endocrine; and metabolic disorders (1 source) Severe obesity; Translations: [Class 3 severe obesity due to excess calories with body mass index (BMI) of 40.0 to 44.9 in adult] Onset: 1 04-05-2021 Chronic Other skin disorders (20 sources) Easy bruising; Translations: [Other skin changes] Onset: 4 04-17-2012 Episodic Other upper respiratory disease (20 sources) Allergic rhinitis due to pollen; Translations: [Allergic rhinitis due to pollen] Onset: 2 11-20-2021 Chronic Prolapse of female genital organs (20 sources) Herniated urinary bladder; Translations: [Cystocele, unspecified] Onset: 2 Chronic Residual codes; unclassified (8 sources) Organic mixed sleep disorder; Translations: [Other sleep disorders] Onset: 2 11-20-2021 Chronic Residual codes; unclassified (16 sources) Organic sleep disorder; Translations: [Other sleep disorders] Onset: 3 01-01-2023 Chronic Residual codes; unclassified (20 sources) Family history of breast cancer; Translations: [Family history of malignant neoplasm of breast] Onset: 4 11-17-2015 Episodic Residual codes; unclassified (1 source) Postmenopausal state; Translations: [Asymptomatic menopausal state] Episodic Rheumatoid arthritis and related disease (16 sources) Inflammatory polyarthropathy; Translations: [Inflammatory polyarthropathy] Onset: 3 01-01-2023 Chronic Spondylosis; intervertebral disc disorders; other back problems (20 sources) Thoracic spondylosis without myelopathy; Translations: [Spondylosis without myelopathy or radiculopathy, thoracic region] Onset: 2 11-20-2021 Chronic Thyroid disorders (20 sources) Hypothyroidism; Translations: [Other specified hypothyroidism] Onset: 1 02-27-2018 Chronic Unclassified (1 source) History of endometrial ablation Onset: 6 03-13-2016 Unclassified (1 source) Other ventricular tachycardia; Translations: [Other ventricular tachycardia] Onset: 4 Unclassified (1 source) Supraventricular tachycardia, unspecified; Translations: [Supraventricular tachycardia, unspecified] Onset: 4 Unclassified (1 source) New Patient Onset: 5 Past or Other Problems Problem Classification Problem Date Documented Da te Episodic/Chronic Abdominal hernia (20 sources) Hiatal hernia; Translations: [Diaphragmatic hernia without obstruction or gangrene] Onset: 2 11-20-2021 Episodic Abdominal pain (20 sources) Abdominal pain; Translations: [Unspecified abdominal pain] Onset: 8 Resolved: 4 12-12-2017 Episodic Benign neoplasm of uterus (20 sources) Submucous leiomyoma of uterus; Translations: [Submucous leiomyoma of uterus] Onset: 2 03-13-2016 Episodic Fluid and electrolyte disorders (20 sources) Hypokalemia; Translations: [Hypokalemia] Onset: 1 11-20-2021 Episodic Gastroduodenal ulcer (except hemorrhage) (20 sources) H/O: gastric ulcer; Translations: [Personal history of peptic ulcer disease] Onset: 2 12-21-2021 Episodic Mood disorders (1 source) Mood disorders Onset: 1 04-05-2021 Nonspecific chest pain (15 sources) Chest pain; Translations: [Chest pain, unspecified] Onset: 9 Resolved: 4 07-10-2023 Episodic Nutritional deficiencies (20 sources) Vitamin B-complex deficiency ; Translations: [Vitamin B deficiency, unspecified] Onset: 2 11-20-2021 Episodic Other and unspecified benign neoplasm (20 sources) Polyp of colon; Translations: [Polyp of colon] Onset: 8 02-04-2018 Episodic Other and unspecified benign neoplasm (20 sources) Tubular adenoma ; Translations: [Benign neoplasm, unspecified site] Onset: 2 12-21-2021 Episodic Other connective tissue disease (16 sources) Fibromyalgia; Translations: [Fibromyalgia] Onset: 3 01-01-2023 Episodic Other disorders of stomach and duodenum (20 sources) Mass of stomach; Translations: [Other diseases of stomach and duodenum] Onset: 8 11-21-2021 Episodic Other female genital disorders (20 sources) Enlarged uterus; Translations: [Hypertrophy of uterus] Onset: 2 03-13-2016 Episodic Other gastrointestinal disorders (20 sources) Abdominal bloating; Translations: [Abdominal distension (gaseous)] Onset: 8 12-12-2017 Episodic Other gastrointestinal disorders (14 sources) H/O: gastrointestinal disease; Translations: [Personal history of other diseases of the digestive system] Onset: 3 Resolved: 4 01-01-2023 Episodic Other lower respiratory disease (3 sources) Dyspnea; Translations: [Shortness of breath] Onset: 4 03-31-2024 Episodic Other lower respiratory disease (1 source) Shortness of breath; Translations: [Shortness of breath] Onset: 4 Episodic Other non-traumatic joint disorders (16 sources) Pain in unspecified knee; Translations: [Pain in joint, lower leg] Onset: 3 01-01-2023 Episodic Other nutritional; endocrine; and metabolic disorders (20 sources) Weight loss; Translations: [Abnormal weight loss] Onset: 2 Resolved: 4 07-28-2021 Episodic Other nutritional; endocrine; and metabolic disorders (4 sources) Weight decreased; Translations: [Abnormal weight loss] Onset: 2 Resolved: 4 08-15-2023 Episodic Other screening for suspected conditions (not mental disorders or infectious disease) (18 sources) Patient encounter status; Translations: [Encounter for screening mammogram for malignant neoplasm of breast] Onset: 4 Resolved: 2 Episodic Ovarian cyst (16 sources) Cyst of left ovary; Translations: [Unspecified ovarian cyst, left side] Onset: 3 01-01-2023 Episodic Residual codes; unclassified (20 sources) History of endometrial ablation; Translations: [Other specified postprocedural states] Onset: 6 03-13-2016 Episodic Residual codes; unclassified (1 source) Bruises easily 04-17-2012 Episodic Residual codes; unclassified (8 sources) Dyssomnia; Translations: [Sleep disorder, unspecified] Onset: 2 11-20-2021 Episodic Residual codes; unclassified (5 sources) History of vaginoplasty; Translations: [Other specified postprocedural states] Onset: 2 Episodic Spondylosis; intervertebral disc disorders; other back problems (20 sources) Cervico-occipital neuralgia; Translations: [Occipital neuralgia] Onset: 2 11-20-2021 Episodic Thyroid disorders (16 sources) Sick-euthyroid syndrome; Translations: [Sick-euthyroid syndrome] Onset: 3 12-25-2022 Episodic Unclassified (1 source) Other ventricular tachycardia; Translations: [Other ventricular tachycardia] Onset: 4 Unclassified (1 source) Supraventricular tachycardia, unspecified; Translations: [Supraventricular tachycardia, unspecified] Onset: 4 Urinary tract infections (20 sources) Acute cystitis; Translations: [Acute cystitis without hematuria] Onset: 1 Resolved: 4 11-20-2021 Episodic Viral infection (20 sources) Disease caused by 2019-nCoV; Translations: [COVID-19] Onset: 1 Resolved: 4 07-28-2021 Episodic Results Test Name Value Interpretation Reference Range Facility HPV DNA High Riskon 11-27-19 25 HPV Interp Normal [facility] Comment on above: Result Comment: This [...] purposes. Performed By: #### H PVH #### [address] [address] Valet Service Attendant: Sonu Heredia MD HPV Type 16 Not detected Normal [facility] Comment on above: Performed By: #### H PVH #### [address] [address] Valet Service Attendant: Sonu Heredia MD HPV Type 18 Not detected [facility] Comment on above: Performed By: #### H PVH #### [address] [address] Valet Service Attendant: Sonu Heredia MD Other High Risk HPV Not detected Normal [facility] Comment on above: Performed By: #### H PVH #### [address] [address] Valet Service Attendant: Sonu Heredia MD HPV DNA High Riskon 11-26-19 25 HPV Sample .THIN PREP [facility] Comment on above: Performed By: #### H PVH #### [address] [address] Valet Service Attendant: Sonu Heredia MD Source CERVICAL MATERIAL Normal [facility] Comment on above: Performed By: #### H PVH #### [address] [address] Valet Service Attendant: Sonu Heredia MD Cytology Reporton 11-24-2024 Cytology report Cyto stain.thin prep Doc (Cvx/Vag) (NOTE) Path Number: [id number] DIAGNOSIS Imaged ThinPrep Pap - Cervical (1 monolayer slide): Specimen Adequacy: Satisfactory for evaluation. - Endocervical/transformat ion zone component present. Descriptive Diagnosis: Negative for intraepithelial lesion or malignancy. Cytotech Screener: EY Electronically Signed Out Luciana BLACKWOOD(ASCP) ey/12/04/2024 Procedure/Addendum HPV Procedure Report Date Ordered: 11/25/2024 Status: Signed Out Date Complete: 11/26/2024 By: System Interface Date Reported: 11/26/2024 Sample: HPV Type 16 Result: Not Detected Ref Range: Not Detected Sample: HPV Type 18 Result: Not Detected Ref Range: Not Detected Sample: Other High Risk HPV Result: Not Detected Ref Range: Not Detected Sample: HPV Interp Result: Ref Range: This test amplifies and detects DNA of [...] or for other forensic purposes. Performed at [facility], [address] [place], [place] [id number] . Source of Specimen: A: Imaged ThinPrep Pap - Cervical (1 monolayer slide) HPV Reflex?................. 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 The Pap smear is a screening test primarily for squamous epithelial lesions, which is subject to both false negative and false positive results. Your patient should be reminded to consult you immediately if she experiences any suspicious signs or symptoms, regardless of her Pap smear result. GYNECOLOGIC CYTOLOGY REPORT Patient Name: CHESTER NEGRO. Med Rec: [id number] [facility] [employer] CONSULTING PATHOLOGISTS [facility] [address] [place] [address]. [place], [place] [address] Normal [facility] Office Visiton 10-13-2024 Follow-up visit [id number] Chester Negro 1960 F Date Provider Department Center 10/13/2024 VIK GARCIA CARD [facility] Family History Problem Relation Age of Onset Supraventricular tachycardia Mother Atrial fibrillation Mother Heart attack Father Coronary artery disease Sister Coronary artery disease Brother Family Status - Relation Status Age at Mother Alive Father Sister Alive Brother Level of Service:04567 [place] OFFICE/OUTPATIENT ESTABLISHED LOW MDM 20 MIN Normal [facility] MR Heart cine for blood flow velocity mappingon 08-20-2024 * * *Final Report* * * DATE OF EXAM: Aug 20 2024 12:01PM HCM 0704 - MRI CARDIAC VELOCITY FLOW MAP / PROCEDURE REASON: Chronic diastolic (congestive) heart failure * * * * Physician Interpretation * * * * RESULT: Cardiac MRI Report: [facility] Date of service: 08/20/2024 10:56:05 AM Linked orders:[id number] CARD MORPH FUNC WO/W IVCON;[id number] CARDIAC VELOCITY FLOW MAP. 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 Diastolic heart failure. This study is performed to quantify left/right ventricular size and function, valvular function, and to perform tissue characterization for the assessment of myocardial fibrosis/edema. MRI Techniques: * Turbo spin echo and gradient echo imaging for anatomic definition. * Dynamic cine imaging (SSFP and GRE) for cardiac chamber and wall-motion analysis, and valvular analysis. * Flow quantification sequences for hemodynamics in 2 locations: aortic root and mid-ascending aorta. * Delayed gadolinium enhancement analysis after injection of gadolinium-chelate. * T2STIR/ T2 Fat Saturated Imaging. * T1 mapping. * T2 mapping. Gadolinium Agent: 10 cc of Gadavist was administered. Baseline vital signs: 50 bpm Height: 157.50 cm BSA: 1.67 m Weight: 63.50 kg BMI: 25.6 kg/m FINDINGS: Extracardiac findings: The chest wall appears normal. The mediastinum is normal. No significant adenopathy is identified. Limited imaging of the lungs reveals no gross abnormalities. Cardiac structures: The cardiac chambers demonstrate normal atrioventricular and normal ventriculoarterial concordance. Systemic and pulmonary venous return is normal. Situs solitus. Aorta: Mid ascendin.1 cm Descending mid thoracic: 2.3 cm Arch: Left Arch vessel branching pattern: normal Arch branch vessels: Widely patent Pulmonary Arteries: Pulmonary Arteries: Normal Measurements: - Main pulmonary artery diameter: 2.6 cm Left Atrium: The left atrium is normal in size. LA volume: 53 ml (normal range: 28-100 ml) LA volume index: 32 ml/m (normal range: 17-54 ml/m ) LA area (4ch): 18 cm LA area (2ch): 21 cm Right Atrium: The right atrium is normal in size. RA volume: 58 ml (normal range: 24-81 ml) RA volume index: 35 ml/m (normal range: 18-58 ml/m ) RA area (4ch): 20 cm Left Ventricle: The left ventricle is normal in size. Left ventricular systolic function is normal. value (normal range) indexed (normal range) EDV: 126 ml (70-155 ml) EDVi: 75 ml/m (45-93 ml/m ) ESV: 38 ml (15-64 ml) ESVi: 23 ml/m (10-38 ml/m ) SV: 87 ml (47-99 ml) SVi: 52 ml/m (30-59 ml/m ) BRIAN: 4.6 cm (3.9-5.9 cm) Tomás: 2.8 cm/m (2.5-3.8 cm/m ) ESD: 3.2 cm (1.6-4.0 cm) ESDi: 1.9 cm/m (1.0-2.6 cm/m ) EF: 69 % (52-79 %) CO: 4.4 l/min (3.0-6.9 l/min) CI: 2.6 l/min/m (1.9-4.0 ml/min/m ) mass: 67 g (43-103 g) LVMi: 40 g/m (30-59 g/m ) LV segment wall thickness: basal anteroseptum: 0.7 cm basal septum: 0.6 cm basal inferolateral: 0.6 cm Wall Motion: There are no wall motion abnormalities. Delayed Enhancement: There is no delayed enhancement. Imaging reveals uniformly nulled myocardium, signifying that there has been no prior ischemic myocardial damage. There is also no definite evidence of interstitial fibrosis on delayed enhancement imaging to suggest an infiltrative process. Constellation of findings could be suggestive of No significant myocardial disease. Right Ventricle: The right ventricle is normal in size. Right ventricular systolic function is normal. value (normal range) indexed (normal range) EDV: 131 ml (68-176 ml) EDVi: 79 ml/m (48-104 ml/m ) ESV: 56 ml (20-80 ml) ESVi: 33 ml/m (13-48 ml/m ) SV: 76 ml (39-109 ml) SVi: 45 ml/m (29-66 ml/m ) EF: 58 % (46-74 %) CO: 3.8 l/min (2.4-6.4 l/min) CI: 2.3 l/min/m (1.6-4.0 l/min/m ) T1 / T2 / ECV T2 * : +------+ +---- --+ T1 pre (ms) +/- +------+ +---- --+ Base 1053.27 86.65 +------+ +---- --+ Mid 1011.18 96.93 +------+ +---- --+ [place] 970.72 117.30 +------+ +---- --+ Global 1018.40 103.55 +------+ +---- --+ Normal values based on healthy individuals: T1: 950 +/- 21 ms; ECV: 26 +/- 4% Aortic Valve: There is no aortic regurgitation. AV Flow Quantification: ST Junction Forward Volume: 83 ml Reverse Volume: 1 ml Net Forward Volu (more content not included)... [facility] Provider, [facility] - 08/20/2024 * * *Final Report* * * DATE OF EXAM: Aug 20 2024 12:01PM HCM 0704 - MRI CARDIAC VELOCITY FLOW MAP / PROCEDURE REASON: Chronic diastolic (congestive) heart failure * * * * Physician Interpretation * * * * RESULT: Cardiac MRI Report: [facility] Date of service: 08/20/2024 10:56:05 AM Linked orders:[id number] CARD MORPH FUNC WO/W IVCON;[id number] CARDIAC VELOCITY FLOW MAP. 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 Diastolic heart failure. This study is performed to quantify left/right ventricular size and function, valvular function, and to perform tissue characterization for the assessment of myocardial fibrosis/edema. MRI Techniques: * Turbo spin echo and gradient echo imaging for anatomic definition. * Dynamic cine imaging (SSFP and GRE) for cardiac chamber and wall-motion analysis, and valvular analysis. * Flow quantification sequences for hemodynamics in 2 locations: aortic root and mid-ascending aorta. * Delayed gadolinium enhancement analysis after injection of gadolinium-chelate. * T2STIR/ T2 Fat Saturated Imaging. * T1 mapping. * T2 mapping. Gadolinium Agent: 10 cc of Gadavist was administered. Baseline vital signs: 50 bpm Height: 157.50 cm BSA: 1.67 m Weight: 63.50 kg BMI: 25.6 kg/m FINDINGS: Extracardiac findings: The chest wall appears normal. The mediastinum is normal. No significant adenopathy is identified. Limited imaging of the lungs reveals no gross abnormalities. Cardiac structures: The cardiac chambers demonstrate normal atrioventricular and normal ventriculoarterial concordance. Systemic and pulmonary venous return is normal. Situs solitus. Aorta: Mid ascendin.1 cm Descending mid thoracic: 2.3 cm Arch: Left Arch vessel branching pattern: normal Arch branch vessels: Widely patent Pulmonary Arteries: Pulmonary Arteries: Normal Measurements: - Main pulmonary artery diameter: 2.6 cm Left Atrium: The left atrium is normal in size. LA volume: 53 ml (normal range: 28-100 ml) LA volume index: 32 ml/m (normal range: 17-54 ml/m ) LA area (4ch): 18 cm LA area (2ch): 21 cm Right Atrium: The right atrium is normal in size. RA volume: 58 ml (normal range: 24-81 ml) RA volume index: 35 ml/m (normal range: 18-58 ml/m ) RA area (4ch): 20 cm Left Ventricle: The left ventricle is normal in size. Left ventricular systolic function is normal. value (normal range) indexed (normal range) EDV: 126 ml (70-155 ml) EDVi: 75 ml/m (45-93 ml/m ) ESV: 38 ml (15-64 ml) ESVi: 23 ml/m (10-38 ml/m ) SV: 87 ml (47-99 ml) SVi: 52 ml/m (30-59 ml/m ) BRIAN: 4.6 cm (3.9-5.9 cm) Tomás: 2.8 cm/m (2.5-3.8 cm/m ) ESD: 3.2 cm (1.6-4.0 cm) ESDi: 1.9 cm/m (1.0-2.6 cm/m ) EF: 69 % (52-79 %) CO: 4.4 l/min (3.0-6.9 l/min) CI: 2.6 l/min/m (1.9-4.0 ml/min/m ) mass: 67 g (43-103 g) LVMi: 40 g/m (30-59 g/m ) LV segment wall thickness: basal anteroseptum: 0.7 cm basal septum: 0.6 cm basal inferolateral: 0.6 cm Wall Motion: There are no wall motion abnormalities. Delayed Enhancement: There is no delayed enhancement. Imaging reveals uniformly nulled myocardium, signifying that there has been no prior ischemic myocardial damage. There is also no definite evidence of interstitial fibrosis on delayed enhancement imaging to suggest an infiltrative process. Constellation of findings could be suggestive of No significant myocardial disease. Right Ventricle: The right ventricle is normal in size. Right ventricular systolic function is normal. value (normal range) indexed (normal range) EDV: 131 ml (68-176 ml) EDVi: 79 ml/m (48-104 ml/m ) ESV: 56 ml (20-80 ml) ESVi: 33 ml/m (13-48 ml/m ) SV: 76 ml (39-109 ml) SVi: 45 ml/m (29-66 ml/m ) EF: 58 % (46-74 %) CO: 3.8 l/min (2.4-6.4 l/min) CI: 2.3 l/min/m (1.6-4.0 l/min/m ) T1 / T2 / ECV T2 * : +------+ +---- --+ T1 pre (ms) +/- +------+ +---- --+ Base 1053.27 86.65 +------+ +---- --+ Mid 1011.18 96.93 +------+ +---- --+ [place] 970.72 117.30 +------+ +---- --+ Global 1018.40 103.55 +------+ +---- --+ Normal values based on healthy individuals: T1: 950 +/- 21 ms; ECV: 26 +/- 4% Aortic Valve: There is no aortic regurgitation. AV Flow Quantification: ST Junction Forward Volume: 83 ml Reverse Volume: 1 ml Net Forward Volume: 82 ml Regurgitant Fraction: 1 % Pulmonic Valve: PV Flow Quantification: (more content not included)... [facility] MRI CARD MORPH FUNC WO/W IVC ONon 08-20-2024 MRI CARD MORPH FUNC WO/W IVCON * * *Final Report* * * DATE OF EXAM: Aug 20 2024 12:01PM HCM 0703 - MRI CARD MORPH FUNC WO/W IVCON / PROCEDURE REASON: Chronic diastolic (congestive) heart failure * * * * Physician Interpretation * * * * RESULT: Cardiac MRI Report: [facility] Date of service: 08/20/2024 10:56:05 AM Linked orders:[id number] CARD MORPH FUNC WO/W IVCON;[id number] CARDIAC VELOCITY FLOW MAP. 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 Diastolic heart failure. This study is performed to quantify left/right ventricular size and function, valvular function, and to perform tissue characterization for the assessment of myocardial fibrosis/edema. MRI Techniques: * Turbo spin echo and gradient echo imaging for anatomic definition. * Dynamic cine imaging (SSFP and GRE) for cardiac chamber and wall-motion analysis, and valvular analysis. * Flow quantification sequences for hemodynamics in 2 locations: aortic root and mid-ascending aorta. * Delayed gadolinium enhancement analysis after injection of gadolinium-chelate. * T2STIR/ T2 Fat Saturated Imaging. * T1 mapping. * T2 mapping. Gadolinium Agent: 10 cc of Gadavist was administered. Baseline vital signs: 50 bpm Height: 157.50 cm BSA: 1.67 m? Weight: 63.50 kg BMI: 25.6 kg/m? FINDINGS: Extracardiac findings: The chest wall appears normal. The mediastinum is normal. No significant adenopathy is identified. Limited imaging of the lungs reveals no gross abnormalities. Cardiac structures: The cardiac chambers demonstrate normal atrioventricular and normal ventriculoarterial concordance. Systemic and pulmonary venous return is normal. Situs solitus. Aorta: Mid ascendin.1 cm Descending mid thoracic: 2.3 cm Arch: Left Arch vessel branching pattern: normal Arch branch vessels: Widely patent Pulmonary Arteries: Pulmonary Arteries: Normal Measurements: - Main pulmonary artery diameter: 2.6 cm Left Atrium: The left atrium is normal in size. LA volume: 53 ml (normal range: 28-100 ml) LA volume index: 32 ml/m? (normal range: 17-54 ml/m?) LA area (4ch): 18 cm? LA area (2ch): 21 cm? Right Atrium: The right atrium is normal in size. RA volume: 58 ml (normal range: 24-81 ml) RA volume index: 35 ml/m? (normal range: 18-58 ml/m?) RA area (4ch): 20 cm? Left Ventricle: The left ventricle is normal in size. Left ventricular systolic function is normal. value (normal range) indexed (normal range) EDV: 126 ml (70-155 ml) EDVi: 75 ml/m? (45-93 ml/m?) ESV: 38 ml (15-64 ml) ESVi: 23 ml/m? (10-38 ml/m?) SV: 87 ml (47-99 ml) SVi: 52 ml/m? (30-59 ml/m?) BRIAN: 4.6 cm (3.9-5.9 cm) Tomás: 2.8 cm/m? (2.5-3.8 cm/m?) ESD: 3.2 cm (1.6-4.0 cm) ESDi: 1.9 cm/m? (1.0-2.6 cm/m?) EF: 69 % (52-79 %) CO: 4.4 l/min (3.0-6.9 l/min) CI: 2.6 l/min/m? (1.9-4.0 ml/min/m?) mass: 67 g (43-103 g) LVMi: 40 g/m? (30-59 g/m?) LV segment wall thickness: basal anteroseptum: 0.7 cm basal septum: 0.6 cm basal inferolateral: 0.6 cm Wall Motion: There are no wall motion abnormalities. Delayed Enhancement: There is no delayed enhancement. Imaging reveals uniformly ?nulled? myocardium, signifying that there has been no prior ischemic myocardial damage. There is also no definite evidence of interstitial fibrosis on delayed enhancement imaging to suggest an infiltrative process. Constellation of findings could be suggestive of No significant myocardial disease. Right Ventricle: The right ventricle is normal in size. Right ventricular systolic function is normal. value (normal range) indexed (normal range) EDV: 131 ml (68-176 ml) EDVi: 79 ml/m? (48-104 ml/m?) ESV: 56 ml (20-80 ml) ESVi: 33 ml/m? (13-48 ml/m?) SV: 76 ml (39-109 ml) SVi: 45 ml/m? (29-66 ml/m?) EF: 58 % (46-74 %) CO: 3.8 l/min (2.4-6.4 l/min) CI: 2.3 l/min/m? (1.6-4.0 l/min/m?) T1 / T2 / ECV T2 * : +------+ +---- --+ T1 pre (ms) +/- +------+ +---- --+ Base 1053.27 86.65 +------+ +---- --+ Mid 1011.18 96.93 +------+ +---- --+ [place] 970.72 117.30 +------+ +---- --+ Global 1018.40 103.55 +------+ +---- --+ Normal values based on healthy individuals: T1: 950 +/- 21 ms; ECV: 26 +/- 4% Aortic Valve: There is no aortic regurgitation. AV Flow Quantification: ST Junction Forward Volume: 83 ml Reverse Volume: 1 ml Net Forward Volume: 82 ml Regurgitant Fraction: 1 % Pulmonic Valve: PV Flow Quantification: Pulmonic Flow Quantification: Forward Volume: 73 ml Reverse Volume: 0 ml Net forward volume: 73 ml Regurgitant fraction: 0 % (more content not included)... Normal [facility] MRI CARDIAC MORPH FUNC WO/W IVCONon 08-20-2024 * * *Final Report* * * DATE OF EXAM: Aug 20 2024 12:01PM HCM 0703 - MRI CARD MORPH FUNC WO/W IVCON / PROCEDURE REASON: Chronic diastolic (congestive) heart failure * * * * Physician Interpretation * * * * RESULT: Cardiac MRI Report: [facility] Date of service: 08/20/2024 10:56:05 AM Linked orders:[id number] CARD MORPH FUNC WO/W IVCON;[id number] CARDIAC VELOCITY FLOW MAP. 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 Diastolic heart failure. This study is performed to quantify left/right ventricular size and function, valvular function, and to perform tissue characterization for the assessment of myocardial fibrosis/edema. MRI Techniques: * Turbo spin echo and gradient echo imaging for anatomic definition. * Dynamic cine imaging (SSFP and GRE) for cardiac chamber and wall-motion analysis, and valvular analysis. * Flow quantification sequences for hemodynamics in 2 locations: aortic root and mid-ascending aorta. * Delayed gadolinium enhancement analysis after injection of gadolinium-chelate. * T2STIR/ T2 Fat Saturated Imaging. * T1 mapping. * T2 mapping. Gadolinium Agent: 10 cc of Gadavist was administered. Baseline vital signs: 50 bpm Height: 157.50 cm BSA: 1.67 m Weight: 63.50 kg BMI: 25.6 kg/m FINDINGS: Extracardiac findings: The chest wall appears normal. The mediastinum is normal. No significant adenopathy is identified. Limited imaging of the lungs reveals no gross abnormalities. Cardiac structures: The cardiac chambers demonstrate normal atrioventricular and normal ventriculoarterial concordance. Systemic and pulmonary venous return is normal. Situs solitus. Aorta: Mid ascendin.1 cm Descending mid thoracic: 2.3 cm Arch: Left Arch vessel branching pattern: normal Arch branch vessels: Widely patent Pulmonary Arteries: Pulmonary Arteries: Normal Measurements: - Main pulmonary artery diameter: 2.6 cm Left Atrium: The left atrium is normal in size. LA volume: 53 ml (normal range: 28-100 ml) LA volume index: 32 ml/m (normal range: 17-54 ml/m ) LA area (4ch): 18 cm LA area (2ch): 21 cm Right Atrium: The right atrium is normal in size. RA volume: 58 ml (normal range: 24-81 ml) RA volume index: 35 ml/m (normal range: 18-58 ml/m ) RA area (4ch): 20 cm Left Ventricle: The left ventricle is normal in size. Left ventricular systolic function is normal. value (normal range) indexed (normal range) EDV: 126 ml (70-155 ml) EDVi: 75 ml/m (45-93 ml/m ) ESV: 38 ml (15-64 ml) ESVi: 23 ml/m (10-38 ml/m ) SV: 87 ml (47-99 ml) SVi: 52 ml/m (30-59 ml/m ) BRIAN: 4.6 cm (3.9-5.9 cm) Tomás: 2.8 cm/m (2.5-3.8 cm/m ) ESD: 3.2 cm (1.6-4.0 cm) ESDi: 1.9 cm/m (1.0-2.6 cm/m ) EF: 69 % (52-79 %) CO: 4.4 l/min (3.0-6.9 l/min) CI: 2.6 l/min/m (1.9-4.0 ml/min/m ) mass: 67 g (43-103 g) LVMi: 40 g/m (30-59 g/m ) LV segment wall thickness: basal anteroseptum: 0.7 cm basal septum: 0.6 cm basal inferolateral: 0.6 cm Wall Motion: There are no wall motion abnormalities. Delayed Enhancement: There is no delayed enhancement. Imaging reveals uniformly nulled myocardium, signifying that there has been no prior ischemic myocardial damage. There is also no definite evidence of interstitial fibrosis on delayed enhancement imaging to suggest an infiltrative process. Constellation of findings could be suggestive of No significant myocardial disease. Right Ventricle: The right ventricle is normal in size. Right ventricular systolic function is normal. value (normal range) indexed (normal range) EDV: 131 ml (68-176 ml) EDVi: 79 ml/m (48-104 ml/m ) ESV: 56 ml (20-80 ml) ESVi: 33 ml/m (13-48 ml/m ) SV: 76 ml (39-109 ml) SVi: 45 ml/m (29-66 ml/m ) EF: 58 % (46-74 %) CO: 3.8 l/min (2.4-6.4 l/min) CI: 2.3 l/min/m (1.6-4.0 l/min/m ) T1 / T2 / ECV T2 * : +------+ +---- --+ T1 pre (ms) +/- +------+ +---- --+ Base 1053.27 86.65 +------+ +---- --+ Mid 1011.18 96.93 +------+ +---- --+ [place] 970.72 117.30 +------+ +---- --+ Global 1018.40 103.55 +------+ +---- --+ Normal values based on healthy individuals: T1: 950 +/- 21 ms; ECV: 26 +/- 4% Aortic Valve: There is no aortic regurgitation. AV Flow Quantification: ST Junction Forward Volume: 83 ml Reverse Volume: 1 ml Net Forward Vol (more content not included)... [facility] RADIOLOGY Provider, [facility] - 08/20/2024 * * *Final Report* * * DATE OF EXAM: Aug 20 2024 12:01PM HCM 0703 - MRI CARD MORPH FUNC WO/W IVCON / PROCEDURE REASON: Chronic diastolic (congestive) heart failure * * * * Physician Interpretation * * * * RESULT: Cardiac MRI Report: [facility] Date of service: 08/20/2024 10:56:05 AM Linked orders:[id number] CARD MORPH FUNC WO/W IVCON;[id number] CARDIAC VELOCITY FLOW MAP. 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 Diastolic heart failure. This study is performed to quantify left/right ventricular size and function, valvular function, and to perform tissue characterization for the assessment of myocardial fibrosis/edema. MRI Techniques: * Turbo spin echo and gradient echo imaging for anatomic definition. * Dynamic cine imaging (SSFP and GRE) for cardiac chamber and wall-motion analysis, and valvular analysis. * Flow quantification sequences for hemodynamics in 2 locations: aortic root and mid-ascending aorta. * Delayed gadolinium enhancement analysis after injection of gadolinium-chelate. * T2STIR/ T2 Fat Saturated Imaging. * T1 mapping. * T2 mapping. Gadolinium Agent: 10 cc of Gadavist was administered. Baseline vital signs: 50 bpm Height: 157.50 cm BSA: 1.67 m Weight: 63.50 kg BMI: 25.6 kg/m FINDINGS: Extracardiac findings: The chest wall appears normal. The mediastinum is normal. No significant adenopathy is identified. Limited imaging of the lungs reveals no gross abnormalities. Cardiac structures: The cardiac chambers demonstrate normal atrioventricular and normal ventriculoarterial concordance. Systemic and pulmonary venous return is normal. Situs solitus. Aorta: Mid ascendin.1 cm Descending mid thoracic: 2.3 cm Arch: Left Arch vessel branching pattern: normal Arch branch vessels: Widely patent Pulmonary Arteries: Pulmonary Arteries: Normal Measurements: - Main pulmonary artery diameter: 2.6 cm Left Atrium: The left atrium is normal in size. LA volume: 53 ml (normal range: 28-100 ml) LA volume index: 32 ml/m (normal range: 17-54 ml/m ) LA area (4ch): 18 cm LA area (2ch): 21 cm Right Atrium: The right atrium is normal in size. RA volume: 58 ml (normal range: 24-81 ml) RA volume index: 35 ml/m (normal range: 18-58 ml/m ) RA area (4ch): 20 cm Left Ventricle: The left ventricle is normal in size. Left ventricular systolic function is normal. value (normal range) indexed (normal range) EDV: 126 ml (70-155 ml) EDVi: 75 ml/m (45-93 ml/m ) ESV: 38 ml (15-64 ml) ESVi: 23 ml/m (10-38 ml/m ) SV: 87 ml (47-99 ml) SVi: 52 ml/m (30-59 ml/m ) BRIAN: 4.6 cm (3.9-5.9 cm) Tomás: 2.8 cm/m (2.5-3.8 cm/m ) ESD: 3.2 cm (1.6-4.0 cm) ESDi: 1.9 cm/m (1.0-2.6 cm/m ) EF: 69 % (52-79 %) CO: 4.4 l/min (3.0-6.9 l/min) CI: 2.6 l/min/m (1.9-4.0 ml/min/m ) mass: 67 g (43-103 g) LVMi: 40 g/m (30-59 g/m ) LV segment wall thickness: basal anteroseptum: 0.7 cm basal septum: 0.6 cm basal inferolateral: 0.6 cm Wall Motion: There are no wall motion abnormalities. Delayed Enhancement: There is no delayed enhancement. Imaging reveals uniformly nulled myocardium, signifying that there has been no prior ischemic myocardial damage. There is also no definite evidence of interstitial fibrosis on delayed enhancement imaging to suggest an infiltrative process. Constellation of findings could be suggestive of No significant myocardial disease. Right Ventricle: The right ventricle is normal in size. Right ventricular systolic function is normal. value (normal range) indexed (normal range) EDV: 131 ml (68-176 ml) EDVi: 79 ml/m (48-104 ml/m ) ESV: 56 ml (20-80 ml) ESVi: 33 ml/m (13-48 ml/m ) SV: 76 ml (39-109 ml) SVi: 45 ml/m (29-66 ml/m ) EF: 58 % (46-74 %) CO: 3.8 l/min (2.4-6.4 l/min) CI: 2.3 l/min/m (1.6-4.0 l/min/m ) T1 / T2 / ECV T2 * : +------+ +---- --+ T1 pre (ms) +/- +------+ +---- --+ Base 1053.27 86.65 +------+ +---- --+ Mid 1011.18 96.93 +------+ +---- --+ [place] 970.72 117.30 +------+ +---- --+ Global 1018.40 103.55 +------+ +---- --+ Normal values based on healthy individuals: T1: 950 +/- 21 ms; ECV: 26 +/- 4% Aortic Valve: There is no aortic regurgitation. AV Flow Quantification: ST Junction Forward Volume: 83 ml Reverse Volume: 1 ml Net Forward Volume: 82 ml Regurgitant Fraction: 1 % Pulmonic Valve: PV Flow Quantification: (more content not included)... [facility] MRI CARDIAC VELOCITY FLOW ODILON Weiss 08-20-2024 MRI CARDIAC VELOCITY FLOW MAP * * *Final Report* * * DATE OF EXAM: Aug 20 2024 12:01PM HCM 0704 - MRI CARDIAC VELOCITY FLOW MAP / PROCEDURE REASON: Chronic diastolic (congestive) heart failure * * * * Physician Interpretation * * * * RESULT: Cardiac MRI Report: [facility] Date of service: 08/20/2024 10:56:05 AM Linked orders:[id number] CARD MORPH FUNC WO/W IVCON;[id number] CARDIAC VELOCITY FLOW MAP. 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 Diastolic heart failure. This study is performed to quantify left/right ventricular size and function, valvular function, and to perform tissue characterization for the assessment of myocardial fibrosis/edema. MRI Techniques: * Turbo spin echo and gradient echo imaging for anatomic definition. * Dynamic cine imaging (SSFP and GRE) for cardiac chamber and wall-motion analysis, and valvular analysis. * Flow quantification sequences for hemodynamics in 2 locations: aortic root and mid-ascending aorta. * Delayed gadolinium enhancement analysis after injection of gadolinium-chelate. * T2STIR/ T2 Fat Saturated Imaging. * T1 mapping. * T2 mapping. Gadolinium Agent: 10 cc of Gadavist was administered. Baseline vital signs: 50 bpm Height: 157.50 cm BSA: 1.67 m? Weight: 63.50 kg BMI: 25.6 kg/m? FINDINGS: Extracardiac findings: The chest wall appears normal. The mediastinum is normal. No significant adenopathy is identified. Limited imaging of the lungs reveals no gross abnormalities. Cardiac structures: The cardiac chambers demonstrate normal atrioventricular and normal ventriculoarterial concordance. Systemic and pulmonary venous return is normal. Situs solitus. Aorta: Mid ascendin.1 cm Descending mid thoracic: 2.3 cm Arch: Left Arch vessel branching pattern: normal Arch branch vessels: Widely patent Pulmonary Arteries: Pulmonary Arteries: Normal Measurements: - Main pulmonary artery diameter: 2.6 cm Left Atrium: The left atrium is normal in size. LA volume: 53 ml (normal range: 28-100 ml) LA volume index: 32 ml/m? (normal range: 17-54 ml/m?) LA area (4ch): 18 cm? LA area (2ch): 21 cm? Right Atrium: The right atrium is normal in size. RA volume: 58 ml (normal range: 24-81 ml) RA volume index: 35 ml/m? (normal range: 18-58 ml/m?) RA area (4ch): 20 cm? Left Ventricle: The left ventricle is normal in size. Left ventricular systolic function is normal. value (normal range) indexed (normal range) EDV: 126 ml (70-155 ml) EDVi: 75 ml/m? (45-93 ml/m?) ESV: 38 ml (15-64 ml) ESVi: 23 ml/m? (10-38 ml/m?) SV: 87 ml (47-99 ml) SVi: 52 ml/m? (30-59 ml/m?) BRIAN: 4.6 cm (3.9-5.9 cm) Tomás: 2.8 cm/m? (2.5-3.8 cm/m?) ESD: 3.2 cm (1.6-4.0 cm) ESDi: 1.9 cm/m? (1.0-2.6 cm/m?) EF: 69 % (52-79 %) CO: 4.4 l/min (3.0-6.9 l/min) CI: 2.6 l/min/m? (1.9-4.0 ml/min/m?) mass: 67 g (43-103 g) LVMi: 40 g/m? (30-59 g/m?) LV segment wall thickness: basal anteroseptum: 0.7 cm basal septum: 0.6 cm basal inferolateral: 0.6 cm Wall Motion: There are no wall motion abnormalities. Delayed Enhancement: There is no delayed enhancement. Imaging reveals uniformly ?nulled? myocardium, signifying that there has been no prior ischemic myocardial damage. There is also no definite evidence of interstitial fibrosis on delayed enhancement imaging to suggest an infiltrative process. Constellation of findings could be suggestive of No significant myocardial disease. Right Ventricle: The right ventricle is normal in size. Right ventricular systolic function is normal. value (normal range) indexed (normal range) EDV: 131 ml (68-176 ml) EDVi: 79 ml/m? (48-104 ml/m?) ESV: 56 ml (20-80 ml) ESVi: 33 ml/m? (13-48 ml/m?) SV: 76 ml (39-109 ml) SVi: 45 ml/m? (29-66 ml/m?) EF: 58 % (46-74 %) CO: 3.8 l/min (2.4-6.4 l/min) CI: 2.3 l/min/m? (1.6-4.0 l/min/m?) T1 / T2 / ECV T2 * : +------+ +---- --+ T1 pre (ms) +/- +------+ +---- --+ Base 1053.27 86.65 +------+ +---- --+ Mid 1011.18 96.93 +------+ +---- --+ [place] 970.72 117.30 +------+ +---- --+ Global 1018.40 103.55 +------+ +---- --+ Normal values based on healthy individuals: T1: 950 +/- 21 ms; ECV: 26 +/- 4% Aortic Valve: There is no aortic regurgitation. AV Flow Quantification: ST Junction Forward Volume: 83 ml Reverse Volume: 1 ml Net Forward Volume: 82 ml Regurgitant Fraction: 1 % Pulmonic Valve: PV Flow Quantification: Pulmonic Flow Quantification: Forward Volume: 73 ml Reverse Volume: 0 ml Net forward volume: 73 ml Regurgitant fraction: 0 % (more content not included)... Normal [facility] No Panel Informationon 08-20 IMPRESSION: 1. No distinct cardiac MRI imaging findings suggestive of eosinophilic myocarditis. No myocardial fibrosis. 2. The left ventricle is normal in size (LV EDVi = 75 ml/m ). The left ventricular systolic function is normal (LV EF = 69 %). There is no regional wall motion abnormality or late gadolinium enhancement to suggest scar, infiltrative or inflammatory disease. 3. The right ventricle is normal in size (RV EDVi = 79 ml/m ). The right ventricular systolic function is normal (RV EF = 58 %). 4. No significant pericardial effusion. 5. Extracardiac finding relevant for a 2.5 cm lobulated hyperintense hepatic lesion, that is not fully characterized on current study. Defer clinical correlation and dedicated imaging to primary physician. * * * Final * * * RP Transcribed Using Voice Recognition Transcribe Date/Time: Aug 20 2024 10:56A Dictated by: DEA GREGORY MD This examination was interpreted and the report reviewed and electronically signed by: DEA GREGORY MD on Aug 20 2024 3:56PM [facility] RADIOLOGY Radiology Study observation (narrative) [facility] No Panel InformationOrdered By: Ccf Provider on 08-20-2024 [facility] 36on 08-18-2024 36 I received a call fr om the patient regarding an MRI order that was supposed to be sent to [facility], she requests a call back at [phone] to discuss further. Normal [facility] Office Visiton 08-04-2024 Follow-up visit [id number] Chester Negro 1960 F Date Provider Department Center 08/04/2024 VIK GARCIA ORALIA Fowler Family History Problem Relation Age of Onset Supraventricular tachycardia Mother Atrial fibrillation Mother Family Status - Relation Status Age at Mother Level of Service:90252 [place] OFFICE/OUTPATIENT NEW MODERATE MDM 45 MINUTES Normal [facility] XR THORACIC SPINE 2 VIEWSon 07-30-2024 XR THORACIC SPINE 2 VIEWS Exam: XR THORACIC SPINE 2 VIEWS Clinical History: Mid back pain Reference Exam: No comparison FINDINGS: Thoracic vertebral bodies are of appropriate height. Multilevel anterior spondylosis. Multilevel disc space height loss. Thoracic pedicles are not splayed. No compression or other fracture. No subluxation. No paraspinal soft tissue abnormality. IMPRESSION: Minor degenerative changes. Negative for acute thoracic compression or other fracture. No subluxation. Dictated on: 07/30/2024 2:56 PM This report has been electronically signed and approved by the interpreting Radiologist. Normal Not Available ALL BASIC METABOLIC PANELon 07-11-2024 Anion gap [Moles/Vol] 12.5 mmol/L NO [facility] Calcium [Mass/Vol] 9.1 mg/dL 8.5 - 10. 1 mg/[facility] Chloride [Moles/Vol] 108 mmol/L High 98 - 10 7 mmol/L [facility] CO2 [Moles/Vol] 28.8 mmol/L 21.0 - 32.0 mmol/L [facility] Creatinine [Mass/Vol] 0.68 mg/dL 0.55 - 1.02 mg/dL [facility] GFR/1.73 sq M.predicted CKD-EPI (S/P/Bld) [Vol rate/Area] >60 >=60 mL/min/1.73 m 2 [facility] Glucose [Mass/Vol] 89 mg/dL 74 - 106 mg/dL [facility] Interpretation and review of laboratory results Abnormal [facility] Potassium [Moles/Vol] 4.3 mmol/L 3.5 - 5.1 mmol/L [facility] Sodium [Moles/Vol] 145 mmol/L 136 - 145 mmol/L [facility] TBH EGFR-NON AF CHADIAN >60 >=60 mL/min/1.73 m 2 [facility] Urea nitrogen [Mass/Vol] 9 mg/dL 7.0 - 18.0 mg/dL [facility] Urea nitrogen/Creatinine [Mass ratio] 13.2 mg/mg [facility] Office Visiton 06-24-2024 Follow-up visit [id number] Chester Negro 1960 F Date Provider Department Center 06/24/2024 271-ARLENE FIGUEROA CARD [facility] Family History Problem Relation Age of Onset Supraventricular tachycardia Mother Family Status - Relation Status Age at Mother Level of Service:01679 [place] OFFICE/OUTPATIENT ESTABLISHED MOD MDM 30 MIN [facility] 36on 06-11-2024 36 Regarding stress phu t result from 06/01/2024: MD Isabel Patel MA Please reassure the patient that her stress test was nonischemic Thank you. Before I call her, were you able to review the echo she had on 06/01 also? And if they're normal, does she still need apt with you on 06/24? Please advise. Thanks. [facility] Office Visiton 05-20-2024 Follow-up visit [id number] Chester Negro German 1960 F Date Provider Department Center 05/20/2024 Keegan-SHELLIE FIGUEROA CARD Elizabeth Fowler Family History Problem Relation Age of Onset Supraventricular tachycardia Mother Family Status - Relation Status Age at Mother Level of Service:36458 [place] OFFICE/OUTPATIENT NEW MODERATE MDM 45 MINUTES Normal [facility] FABIAN DIGITAL SCREEN ONEIL Renteria 04-27-2024 [facility] FABIAN DIGITAL SCREEN BILATERAL EXAMINATION: SCREENING DIGITAL [...] to the patient regarding the results. [employer] [place] [employer] recommends annual mammograms for women 40 years and older. Performing Facility: [facility] [place] [address] [place], [place] [address] Interpreted by: Denice Daneille MD Signed by: Denice Danielle MD 04/27/24 Final result Normal [facility] DEXA BONE DENSITY AXIAL SKEL ETONojuan 03-20-2022 Normal bone mineral density by WHO [...] have additional risk factors. Template code: [id number] [facility] EXAMINATION: BONE DENSITOMETRY 03/20/2022 6:25 am TECHNIQUE: A bone density dual x-ray absorptiometry (DXA) scan was performed of the lumbar spine and left hip on a [employer] system. COMPARISON: None. HISTORY: ORDERING SYSTEM PROVIDED HISTORY: Post-menopausal TECHNOLOGIST PROVIDED HISTORY: post menopausal Gender: F Age: 61 y/o FINDINGS: LUMBAR SPINE: L1-L4 BMD: 1.461 g/cm2 T-score: 2.1 Z-score: 2.5 LEFT TOTAL HIP: BMD: 1.156 g/cm2 T-score: 1.2 Z-score: 1.5 LEFT FEMORAL NECK: BMD: 1.136 g/cm2 T-score: 0.7 Z-score: 1.4 FRAX: Not Indicated. [facility] Derek Fairchild DO - 03/20/2022 EXAMINATION: BONE DENSITOMETRY 03/20/2022 6:25 am TECHNIQUE: A bone density dual x-ray absorptiometry (DXA) scan was performed of the lumbar spine and left hip on a [employer] system. COMPARISON: None. HISTORY: ORDERING SYSTEM PROVIDED [...] have additional risk factors. Template code: [id number] [employer] Phone: Radiology Study observation (narrative) [employer] Phone: DEXA BONE DENSITY AXIAL SKEL ETONOrdered By: Derek Fairchild on 03-20-2022 [employer] Phone: Hemoglobin and Hematocriton 02-01-2022 Hematocrit (Bld) [Volume fraction] 35.5 % Low 36 - 46 % [facility] Hemoglobin (Bld) [Mass/Vol] 12.5 g/dL 12 - 16 g/dL [facility] Interpretation and review of laboratory results Abnormal [facility] Urinalysis with Reflex to Cu ltureon 02-01-2022 Bilirubin Urine Negative NEGATIVE [facility] Color, UA Yellow Yellow [facility] Glucose, Ur Negative NEGATIVE [facility] Ketones Ql (U) Negative NEGATIVE [facility] Leukocyte esterase Test strip Ql (U) Negative NEGATIVE [facility] Nitrite, Urine Negative NEGATIVE [facility] pH, UA 6.5 5 - 8 [facility] Protein, UA Negative NEGATIVE [facility] Specific [place], UA 1.008 1 - 1.03 [facility] Turbidity UA Clear Clear [facility] Urinalysis Comments Microscopic exam not performed based on chemical results unless requested in original order. [facility] Urine Hgb Negative NEGATIVE [facility] Urobilinogen, Urine Normal Normal [facility] EKG 12 leadOrdered By: Dayanna Jones on 01-23-2022 Atrial Rate 57 BPM [facility] Work Phone: P [place] 6 degrees [facility] Work Phone: P-R Interval 134 ms [facility] Work Phone: Q-T Interval 430 ms [facility] Work Phone: QRS Duration 92 ms [facility] Work Phone: QTc Calculation (Bazett) 418 ms [facility] Work Phone: R [place] -27 degrees [facility] Work Phone: T [place] -7 degrees [facility] Work Phone: Ventricular Rate 57 BPM [facility] Work Phone: [employer] Work Phone: EKG 12 leadon 01-23-2022 Sinus bradycardia Low voltage QRS Borderline ECG When compared with ECG of 07-MAR-2016 09:50, No significant change was found [facility] Yevgeniy Mon MD - 01/23/2022 Sinus bradycardia Low voltage QRS Borderline ECG When compared with ECG of 07-MAR-2016 09:50, No significant change was found [employer] Work Phone: Urine cultureon 01-23-2022 Bacteria identified Cx Nom (U) NO SIGNIFICANT GROWTH [place] Content Circles Specimen Description .[facility]AN C[facility] Basic Metabolic Panel w/ Ref se to MGon 01-22-2022 Anion gap [Moles/Vol] 8 mmol/L Low 9 - 17 mmol/L [facility] Calcium [Mass/Vol] 9.5 mg/dL 8.6 - 10. 4 mg/dL [facility] Chloride [Moles/Vol] 104 mmol/L 98 - 10 7 mmol/L [facility] CO2 [Moles/Vol] 27 mmol/L 20 - 31 mmol/L [facility] Creatinine [Mass/Vol] 0.51 mg/dL 0.5 - 0.9 mg/dL [facility] GFR >60 60 - PI NF mL/min [facility] GFR Non- >60 60 - PINF mL/min [facility] GFR/1.73 sq M.predicted MDRD (S/P/Bld) [Vol rate/Area] [facility] Comment on above: Average GFR for 50-5 9 years old: 93 mL/min/1.73sq m Chronic Kidney Disease: <60 mL/min/1.73sq m Kidney failure: <15 mL/min/1.73sq m eGFR calculated using average adult body mass. Additional eGFR calculator available at: http://www.[employer]/multiple_crcl_2012.htm Glucose [Mass/Vol] 87 mg/dL 70 - 99 mg/dL [facility] Interpretation and review of laboratory results Abnormal [facility] Potassium [Moles/Vol] 4.5 mmol/L 3.7 - 5.3 mmol/L [facility] Sodium [Moles/Vol] 139 mmol/L 135 - 144 mmol/L [facility] Urea nitrogen (BldV) [Mass/Vol] 13 mg/dL 6 - 20 mg/dL [facility] CBC auto differentialon 01-05 Absolute Eos # 0.50 High [facility] Absolute Lymph # 1.50 [facility] Absolute Runnels # 0.50 [facility] Basophils (Bld) [#/Vol] 0.00 10*3/uL [facility] Basophils/100 WBC (Bld) 0 % 0 - 2 % [facility] Eosinophils/100 WBC (Bld) 6 % High 0 - 4 % [facility] Hematocrit (Bld) [Volume fraction] 42.2 % 36 - 46 % [facility] Hemoglobin (Bld) [Mass/Vol] 14.2 g/dL 12 - 16 g/dL [facility] Interpretation and review of laboratory results Abnormal [facility] Lymphocytes/100 WBC (Bld) 21 % Low 24 - 44 % [facility] MCH (RBC) [Entitic mass] 28.5 pg 26 - 34 pg [facility] MCHC (RBC) [Mass/Vol] 33.6 g/dL 31 - 3 7 g/dL [facility] MCV (RBC) [Entitic vol] 84.7 fL 80 - 100 fL [facility] Monocytes/100 WBC (Bld) 7 % 1 - 7 % [facility] Platelet distribution width (Bld) [Ratio] 13.4 % 11.5 - 14.9 % [facility] Platelet mean volume (Bld) [Entitic vol] 8.1 fL 6 - 12 fL [facility] Platelets (Bld) [#/Vol] 217 10*3/uL [facility] RBC (Bld) [#/Vol] 4.98 10*6/uL 4 - 5.2 m/uL [facility] Segmented neutrophils/100 WBC (Bld) 66 % 36 - 66 % [facility] Segs Absolute 4.70 [facility] WBC (Bld) [#/Vol] 7.1 10*3/uL [facility] No Panel Informationon 01-22 No acute cardiopulmo nary disease. [facility] EXAMINATION: TWO XRAY VIEWS OF THE CHEST 01/22/2022 1:05 pm COMPARISON: Chest x-ray dated 22 Nov 2017 HISTORY: ORDERING SYSTEM PROVIDED HISTORY: Pre-op testing TECHNOLOGIST PROVIDED HISTORY: pre-op Reason for Exam: pre op surgery 02/01/22, no current chest complaints FINDINGS: No acute airspace infiltrate. No pneumothorax or pleural effusion. Normal cardiomediastinal silhouette. [facility] Patrick Jimenez - 01/22/2022 EXAMINATION: TWO XRAY VIEWS OF THE CHEST 01/22/2022 1:05 pm COMPARISON: Chest x-ray dated 22 Nov 2017 HISTORY: ORDERING SYSTEM PROVIDED HISTORY: Pre-op testing TECHNOLOGIST PROVIDED HISTORY: pre-op Reason for Exam: pre op surgery 02/01/22, no current chest complaints FINDINGS: No acute airspace infiltrate. No pneumothorax or pleural effusion. Normal cardiomediastinal silhouette. IMPRESSION: No acute cardiopulmonary disease. [facility] Work Phone: Radiology Study observation (narrative) [facility] Work Phone: No Panel InformationOrdered By: Patrick Jimenez on 01-22-2022 [facility] Work Phone: Serum (quantitativ e)on 01-22-2022 hCG Quant 2 NINF [facility] Comment on above: Non-preg premeno <=5 Postmeno <=8 Male <=3 If HCG results do not concur with clinical observations, additional testing to confirm results is recommended. Elevated results not associated with may be found in patients with other diseases such as tumors of the germ cells (testis, ovaries, etc.), bladder, pancreas, stomach, lungs, and liver. [facility] TYPE AND SCREENon 01-22-2022 ABO/Rh Negative [facility] Arm Band Number [id number] [facility] Expiration Date 02/04/2022,2359 [facility] Urinalysison 01-22-2022 Bilirubin Urine Negative NEGATIVE [facility] Color, UA Yellow Yellow [facility] Glucose, Ur Negative NEGATIVE [facility] Ketones Ql (U) Negative NEGATIVE [facility] Leukocyte esterase Test strip Ql (U) Negative NEGATIVE [facility] Nitrite, Urine Negative NEGATIVE [facility] pH, UA 6.5 5 - 8 [facility] Protein, UA Negative NEGATIVE [facility] Specific [place], UA 1.012 1 - 1.03 [facility] Turbidity UA Clear Clear [facility] Urinalysis Comments Microscopic exam not performed based on chemical results unless requested in original order. [facility] Urine Hgb Negative NEGATIVE [facility] Urobilinogen, Urine Normal Normal [facility] Microscopic Urinalysison Bacteria, UA FEW Abnormal None [facility] Casts UA 0 TO 2 /LPF [facility] Epithelial Cells UA 6 TO 9 /HPF [facility] Interpretation and review of laboratory results Abnormal [facility] RBC, UA 3 to 5 /HPF [facility] WBC, UA 3 to 5 /HPF [facility] Urinalysis with Reflex to Cu ltureon 12-27-2021 Bilirubin Urine Negative NEGATIVE [facility] Color, UA Yellow Yellow [facility] Glucose, Ur Negative NEGATIVE [facility] Interpretation and review of laboratory results Abnormal [facility] Ketones Ql (U) Negative NEGATIVE [facility] Leukocyte esterase Test strip Ql (U) MOD Abnormal NEGATIVE [facility] Nitrite, Urine Negative NEGATIVE [facility] pH, UA 6.0 [facility] Protein, UA Negative NEGATIVE [facility] Specific [place], UA 1.018 [facility] Turbidity UA Clear Clear [facility] Urine Hgb Negative NEGATIVE [facility] Urobilinogen, Urine Normal Normal MELE ZEPEDA [facility] MELE [facility] JORGE FABIAN DIGITAL SCREEN BILA TERALon 12-25-2021 Unremarkable study o f the breasts. No evidence of significant interval change. BIRADS: BIRADS - CATEGORY 1 Negative, no evidence of malignancy. Normal interval follow-up is recommended in 12 months. OVERALL ASSESSMENT - NEGATIVE A letter of notification will be sent to the patient regarding the results. [employer] [employer] recommends annual mammograms for women 40 years and older. [facility] EXAMINATION: SCREENING DIGITAL BILATERAL MAMMOGRAM WITH [...] suspicious microcalcification, or area of architectural distortion. [facility] Radiology Study observation (narrative) [facility] Work Phone: [facility] FABIAN DIGITAL SCREEN BILA TERALOrdered By: Glory Joy on 12-25-2021 [facility] Work Phone: Free T3on 11-29-2021 FT3 6.51 pg/mL High 2.00-4.40 [facility] Produce Manager Comment on above: Performed By: #### F T3, TSH, FT4 #### [facility] [address], [place] [id number] Free T4on 11-29-2021 Free T4 [Mass/Vol] 1.24 ng/dL Normal 0.80-1.80 [facility] Comment on above: Performed By: #### F T3, TSH, FT4 #### [facility] [address], [place] [id number] TSHon 11-29-2021 TSH 1.100 uIU/mL Normal 0.400-4.500 [facility] Produce Manager Comment on above: Performed By: #### F T3, TSH, FT4 #### [facility] [address], [place] [id number] Free T3on 10-23-2021 FT3 2.10 pg/mL Normal 2.00-4.40 [facility] Comment on above: Performed By: #### F T3, TSH, FT4 #### [facility] [address], [place] [id number] Free T4on 10-23-2021 Free T4 [Mass/Vol] 0.59 ng/dL Low 0.80-1.80 [facility] Comment on above: Performed By: #### F T3, TSH, FT4 #### [facility] [address], [place] [id number] Q - T3 TOTALon 10-23-2021 T3, TOTAL 84 ng/dL Normal 76-181 [facility] Specialist Comment on above: Order Comment: Quest performed at: [facility], [facility], [address] [place] [address], [address] [place] [address], [id number], Supply Chain Business Analyst: Roque Guerrero MDQuest Collection Date/Time: [id number] Results Received Date/Time: [id number] Reported Date/Time: FASTING: NO Performed By: #### F T3, TSH, FT4 #### [facility] [address], [place] [id number] Q - T3,REVERSE,LC/MS/MSon T3 REVERSE, LC/MS/MS 6 ng/dL Low 8-25 [facility] Comment on above: Order Comment: Quest performed at: [facility], [facility], [address], [place], [place], , Supply Chain Business Analyst: Kale Leon M.D.,PhDQuest Collection Date/Time: [id number] Results Received Date/Time: [id number] Reported Date/Time: FASTING: NO Result Comment: This test was developed and its analytical performance characteristics have been determined by [facility] [place], [place]. It has not been cleared or approved by the U.S. Food and Drug Administration. This assay has been validated pursuant to the CLIA regulations and is used for clinical purposes. Performed By: #### F T3, TSH, FT4 #### [facility] [address], [place] [id number] TSHon 10-23-2021 TSH 165.300 uIU/mL High 0.400-4.500 [facility] Comment on above: Performed By: #### F T3, TSH, FT4 #### [facility] [address], [place] [id number] Basic Metabolic Panelon Anion gap [Moles/Vol] 18 mmol/L Normal 12-20 [facility] Comment on above: Result Comment: Effe ctive 07/13/2019 reference range changed. Performed By: #### C RP, CK, TSH, FT4, FT3, ESR, CBCAD, BMP #### [facility] [address], [place] [id number] Calcium [Mass/Vol] 9.9 mg/dL Normal 8.6-10.2 [facility] Comment on above: Performed By: #### C RP, CK, TSH, FT4, FT3, ESR, CBCAD, BMP #### [facility] [address], [place] [id number] Chloride [Moles/Vol] 107 mmol/L Normal 98-107 [facility] Comment on above: Performed By: #### C RP, CK, TSH, FT4, FT3, ESR, CBCAD, BMP #### [facility] [address], [place] [id number] CO2 [Moles/Vol] 23 mmol/L Normal 20-31 [facility] Comment on above: Performed By: #### C RP, CK, TSH, FT4, FT3, ESR, CBCAD, BMP #### [facility] [address], [place] [id number] Creatinine [Mass/Vol] 0.7 mg/dL Normal 0.6-1.4 [facility] Comment on above: Performed By: #### C RP, CK, TSH, FT4, FT3, ESR, CBCAD, BMP #### [facility] [address], [place] [id number] eGFRAA 108 mL/min/1.73m2 Normal >60 [facility] Specialist Comment on above: Performed By: #### C RP, CK, TSH, FT4, FT3, ESR, CBCAD, BMP #### [facility] [address], [place] [id number] eGFRNAA 89 mL/min/1.73m2 Normal >60 [facility] Comment on above: Performed By: #### C RP, CK, TSH, FT4, FT3, ESR, CBCAD, BMP #### [facility] [address], [place] [id number] Glucose [Mass/Vol] 86 mg/dL Normal 65-99 [facility] Produce Manager Comment on above: Result Comment: For FASTING Glucose --- ADA reference ranges: Normal 65-99 mg/dl Prediabetes 100-125 Diabetes >/= 126 Performed By: #### C RP, CK, TSH, FT4, FT3, ESR, CBCAD, BMP #### [facility] [address], [place] [id number] Potassium [Moles/Vol] 4.5 mmol/L Normal 3.5-5.5 [facility] Comment on above: Performed By: #### C RP, CK, TSH, FT4, FT3, ESR, CBCAD, BMP #### [facility] [address], [place] [id number] Sodium [Moles/Vol] 143 mmol/L Normal 135-146 [facility] Produce Manager Comment on above: Performed By: #### C RP, CK, TSH, FT4, FT3, ESR, CBCAD, BMP #### [facility] [address], [place] [id number] Urea nitrogen [Mass/Vol] 13 mg/dL Normal 7-25 [facility] Produce Manager Comment on above: Performed By: #### C RP, CK, TSH, FT4, FT3, ESR, CBCAD, BMP #### [facility] [address], [place] [id number] C-Reactive Proteinon 022 CRP IV 1.2 mg/dl Normal <5.0 [facility] Comment on above: Performed By: #### C RP, CK, TSH, FT4, FT3, ESR, CBCAD, BMP #### [facility] [address], [place] [id number] Complete Blood Count with Au to Diffon 07-12-2021 Basophils (Bld) [#/Vol] 0.02 10*3/uL Normal 0.00-0.20 [facility] Produce Manager Comment on above: Performed By: #### C RP, CK, TSH, FT4, FT3, ESR, CBCAD, BMP #### [facility] [address], [place] [id number] Basophils/100 WBC (Bld) 0.3 % Normal [facility] Comment on above: Performed By: #### C RP, CK, TSH, FT4, FT3, ESR, CBCAD, BMP #### [facility] [address], [place] [id number] Eosinophils (Bld) [#/Vol] 0.69 10*3/uL High 0.02-0.50 [facility] Produce Manager Comment on above: Performed By: #### C RP, CK, TSH, FT4, FT3, ESR, CBCAD, BMP #### [facility] [address], [place] [id number] Eosinophils/100 WBC (Bld) 9.2 % Normal [facility] Produce Manager Comment on above: Performed By: #### C RP, CK, TSH, FT4, FT3, ESR, CBCAD, BMP #### [facility] [address], [place] [id number] Erythrocyte distribution width (RBC) [Ratio] 12.2 % Normal 11.0-15.0 [facility] Produce Manager Comment on above: Performed By: #### C RP, CK, TSH, FT4, FT3, ESR, CBCAD, BMP #### [facility] [address], [place] [id number] Hematocrit (Bld) [Volume fraction] 40.9 % Normal 35.0-47.0 [facility] Comment on above: Performed By: #### C RP, CK, TSH, FT4, FT3, ESR, CBCAD, BMP #### [facility] [address], [place] [id number] Hemoglobin (Bld) [Mass/Vol] 13.5 g/dL Normal 11.6-15.5 [facility] Comment on above: Performed By: #### C RP, CK, TSH, FT4, FT3, ESR, CBCAD, BMP #### [facility] [address], [place] [id number] Lymphocytes (Bld) [#/Vol] 1.4 10*3/uL Normal 0.9-3.9 [facility] Comment on above: Performed By: #### C RP, CK, TSH, FT4, FT3, ESR, CBCAD, BMP #### [facility] [address], [place] [id number] Lymphocytes/100 WBC (Bld) 18.1 % Normal [facility] Comment on above: Performed By: #### C RP, CK, TSH, FT4, FT3, ESR, CBCAD, BMP #### [facility] [address], [place] [id number] MCH (RBC) [Entitic mass] 28.6 pg Normal 27.0-33.0 [facility] Comment on above: Performed By: #### C RP, CK, TSH, FT4, FT3, ESR, CBCAD, BMP #### [facility] [address], [place] [id number] MCHC (RBC) [Mass/Vol] 33.0 g/dL Normal 32.0-36.0 [facility] Comment on above: Performed By: #### C RP, CK, TSH, FT4, FT3, ESR, CBCAD, BMP #### [facility] [address], [place] [id number] MCV (RBC) [Entitic vol] 87 fL Normal 80-100 [facility] Comment on above: Performed By: #### C RP, CK, TSH, FT4, FT3, ESR, CBCAD, BMP #### [facility] [address], [place] [id number] Monocytes (Bld) [#/Vol] 0.7 10*3/uL Normal 0.2-0.9 [facility] Comment on above: Performed By: #### C RP, CK, TSH, FT4, FT3, ESR, CBCAD, BMP #### [facility] [address], [place] [id number] Monocytes/100 WBC (Bld) 8.7 % Normal [facility] Comment on above: Performed By: #### C RP, CK, TSH, FT4, FT3, ESR, CBCAD, BMP #### [facility] [address], [place] [id number] Neutrophils (Bld) [#/Vol] 4.7 10*3/uL Normal 1.5-7.8 [facility] Comment on above: Performed By: #### C RP, CK, TSH, FT4, FT3, ESR, CBCAD, BMP #### [facility] [address], [place] [id number] Neutrophils/100 WBC (Bld) 63.3 % Normal [facility] Comment on above: Performed By: #### C RP, CK, TSH, FT4, FT3, ESR, CBCAD, BMP #### [facility] [address], [place] [id number] Platelet mean volume (Bld) [Entitic vol] 10.00 fL Normal 7.50-12.50 [facility] Comment on above: Performed By: #### C RP, CK, TSH, FT4, FT3, ESR, CBCAD, BMP #### [facility] [address], [place] [id number] Platelets (Bld) [#/Vol] 267 10*3/uL Normal 140-400 [facility] Comment on above: Performed By: #### C RP, CK, TSH, FT4, FT3, ESR, CBCAD, BMP #### [facility] [address], [place] [id number] RBC (Bld) [#/Vol] 4.72 10*6/uL Normal 3.90-5.20 [facility] Specialist Comment on above: Performed By: #### C RP, CK, TSH, FT4, FT3, ESR, CBCAD, BMP #### [facility] [address], [place] [id number] RDW-SD 39.2 fL Normal 37.0-50.0 [facility] Produce Manager Comment on above: Performed By: #### C RP, CK, TSH, FT4, FT3, ESR, CBCAD, BMP #### [facility] [address], [place] [id number] WBC (Bld) [#/Vol] 7.5 10*3/uL Normal 3.8-11.0 Valerie tyson [place] Produce Manager Comment on above: Performed By: #### C RP, CK, TSH, FT4, FT3, ESR, CBCAD, BMP #### [facility] [address], [place] [id number] Creatine Kinaseon 07-12-2021 CK [Catalytic activity/Vol] 16 U/L Low 26-192 [facility] Produce Manager Comment on above: Performed By: #### C RP, CK, TSH, FT4, FT3, ESR, CBCAD, BMP #### [facility] [address], [place] [id number] Free T3on 07-12-2021 FT3 3.04 pg/mL Normal 2.00-4.40 [facility] Produce Manager Comment on above: Performed By: #### C RP, CK, TSH, FT4, FT3, ESR, CBCAD, BMP #### [facility] [address], [place] [id number] Free T4on 07-12-2021 Free T4 [Mass/Vol] 1.29 ng/dL Normal 0.80-1.80 [facility] Produce Manager Comment on above: Performed By: #### C RP, CK, TSH, FT4, FT3, ESR, CBCAD, BMP #### [facility] [address], [place] [id number] RBC Sedimentation Rateon ESR (Bld) [Velocity] 10.00 mm/h Normal 0.00-30.00 [facility] [place] Produce Manager Comment on above: Performed By: #### F T3, TSH, FT4 #### [facility] [address], [place] [id number] TSHon 07-12-2021 TSH 13.040 uIU/mL High 0.400-4.500 [facility] Produce Manager Comment on above: Performed By: #### C RP, CK, TSH, FT4, FT3, ESR, CBCAD, BMP #### [facility] [address], [place] [id number] [facility] FABIAN DIGITAL SCREEN SELF REFERRAL W OR [...] to the patient regarding the results. [employer] [place] [employer] recommends annual mammograms for women 40 years and older. [employer] Website Phone: EXAMINATION: SCREENI NG DIGITAL BILATERAL MAMMOGRAM [...] suspicious microcalcification, or area of architectural distortion. [employer] Website Phone: [employer] Website Phone: T3, FreeOrdered By: Candy cheek on 06-15-2019 Free T3 [Mass/Vol] 2.83 pg/mL 2.02 - 4. 43 pg/mL [employer] Website Phone: T4, FreeOrdered By: Candy cheek on 06-15-2019 Thyroxine, Free 1.17 ng/dL 0.93 - 1.7 ng/dL [employer] Website Phone: TSH without ReflexOrdered By : Candy Gee on 06-15-2019 Interpretation and review of laboratory results Abnormal [facility] Work Phone: TSH Qn 35.69 m[IU]/L [facility] Work Phone: Coding Summaryon 07-25-2017 Coding Summary CODING DATE: 018 [facility] STATUS: Home PAYOR: [employer] DESCRIPTION [...] Shahla Nguyen Date Saved: 07/25/2017 01:15 pm [facility] Provider Orderson 07-24-2017 Provider Orders [id number] IFF [facility] XR Elbow Complete Lefton XR Elbow Complete [...] PROXIMALULNA OF UNCERTAIN ETIOLOGY AND SIGNIFICANCE. FOLLOW-UP NEEDED.ROBBIE Ervin #: [id number]: 07/23/2017T: 07/23/2017 Final Dictated by: Cathryn MEDINA, Alistair SDictated DT/TM: 07/23/17 6:10Signed (Electronic Signature): Cathryn MEDINA, Alistair S 07/23/17 10:51 aTechnologist: [facility] Vital Signs Date Time Vital Sign Value Performing Clinician Facility 11-20-2024 09:13-0400 Body height 152.4 cm Chana Hurtado MD Work Phone: [facility] 11-20-2024 09:13-0400 Body mass index (BMI) [Ratio] 35.78 kg/m2 Chana Hurtado MD Work Phone: [facility] 11-20-2024 09:13-0400 Body weight 83.1 kg Chana Hurtado MD Work Phone: [facility] 11-20-2024 09:13-0400 Diastolic blood pressure 81 mm[Hg] Chana Hurtado MD Work Phone: [facility] 11-20-2024 09:13-0400 Heart rate 51 /min Chana Hurtado MD Work Phone: [facility] 11-20-2024 09:13-0400 Respiratory rate 16 /min Chana Hurtado MD Work Phone: [facility] 11-20-2024 09:13-0400 Systolic blood pressure 135 mm[Hg] Chana Hurtado MD Work Phone: [facility] 10-14-2024 09:38-0400 Body height 162.6 cm Candy Hemmer PA Work Phone: [facility] 10-14-2024 09:38-0400 Body mass index (BMI) [Ratio] 31.34 kg/m2 Candy Hemmer PA Work Phone: [facility] 10-14-2024 09:38-0400 Body weight 82.83 kg Candy Hemmer PA Work Phone: [facility] 10-14-2024 09:38-0400 Diastolic blood pressure 72 mm[Hg] Candy Hemmer PA Work Phone: [facility] 10-14-2024 09:38-0400 Heart rate 54 /min Candy Hemmer PA Work Phone: [facility] 10-14-2024 09:38-0400 Respiratory rate 16 /min Candy Hemmer PA Work Phone: [facility] 10-14-2024 09:38-0400 SaO2% (BldA) [Mass fraction] 98 % Candy Hemmer PA Work Phone: [facility] 10-14-2024 09:38-0400 Systolic blood pressure 116 mm[Hg] Candy Hemmer PA Work Phone: [facility] 07-30-2024 15:05-0500 Body height 162.6 cm Candy Hemmer PA Work Phone: [facility] 07-30-2024 15:05-0500 Body mass index (BMI) [Ratio] 31.45 kg/m2 Candy Hemmer PA Work Phone: [facility] 07-30-2024 15:05-0500 Body weight 83.1 kg Candy Hemmer PA Work Phone: [facility] 07-30-2024 15:05-0500 Diastolic blood pressure 82 mm[Hg] Candy Hemmer PA Work Phone: [facility] 07-30-2024 15:05-0500 Heart rate 62 /min Candy Hemmer PA Work Phone: [facility] 07-30-2024 15:05-0500 Respiratory rate 16 /min Candy Hemmer PA Work Phone: [facility] 07-30-2024 15:05-0500 SaO2% (BldA) [Mass fraction] 97 % Candy Hemmer PA Work Phone: [facility] 07-30-2024 15:05-0500 Systolic blood pressure 112 mm[Hg] Candy Hemmer PA Work Phone: [facility] 03-31-2024 10:47-0400 Body height 162.6 cm Candy Hemmer PA Work Phone: [facility] 03-31-2024 10:47-0400 Body mass index (BMI) [Ratio] 31.31 kg/m2 Candy Hemmer PA Work Phone: [facility] 03-31-2024 10:47-0400 Body temperature 98.1 [degF] Candy Hemmer PA Work Phone: [facility] 03-31-2024 10:47-0400 Body weight 82.74 kg Candy Hemmer PA Work Phone: [facility] 03-31-2024 10:47-0400 Diastolic blood pressure 78 mm[Hg] Candy Hemmer PA Work Phone: [facility] 03-31-2024 10:47-0400 Heart rate 76 /min Candy Hemmer PA Work Phone: [facility] 03-31-2024 10:47-0400 Respiratory rate 16 /min Candy Hemmer PA Work Phone: [facility] 03-31-2024 10:47-0400 SaO2% (BldA) [Mass fraction] 98 % Candy Hemmer PA Work Phone: [facility] 03-31-2024 10:47-0400 Systolic blood pressure 129 mm[Hg] Candy Hemmer PA Work Phone: [facility] 08-15-2023 10:35-0500 Body mass index (BMI) [Ratio] 31.24 kg/m2 Acndy Hemmer PA Work Phone: [facility] 08-15-2023 10:35-0500 Body weight 82.56 kg Candy Hemmer PA Work Phone: [facility] 08-15-2023 10:35-0500 Diastolic blood pressure 84 mm[Hg] Candy Hemmer PA Work Phone: [facility] 08-15-2023 10:35-0500 Heart rate 54 /min Candy Hemmer PA Work Phone: [facility] 08-15-2023 10:35-0500 Respiratory rate 16 /min Candy Hemmer PA Work Phone: [facility] 08-15-2023 10:35-0500 SaO2% (BldA) [Mass fraction] 99 % Candy PRUITT Work Phone: [facility] 08-15-2023 10:35-0500 Systolic blood pressure 132 mm[Hg] Candy Ofelia PRUITT Work Phone: [facility] 02-02-2022 07:00-0400 Body temperature 98.2 [degF] Ino Zev DO Work Phone: [employer] 02-02-2022 07:00-0400 Diastolic blood pressure 70 mm[Hg] Ino Brothers Work Phone: [employer] 02-02-2022 07:00-0400 Heart rate 66 /min Ino Zev BAER Work Phone: [employer] 02-02-2022 07:00-0400 Respiratory rate 16 /min Ino Zev BAER Work Phone: [employer] 02-02-2022 07:00-0400 Systolic blood pressure 124 mm[Hg] Ino Zev BAER Work Phone: [employer] 02-02-2022 02:50-0400 SaO2% (BldA) [Mass fraction] 94 % Ino Brothers DO Work Phone: [employer] 02-01-2022 06:23-0400 Body height 162.6 cm Ino Cadenamoiz BAER Work Phone: [employer] 02-01-2022 06:23-0400 Body mass index (BMI) [Ratio] 34.16 kg/m2 Ino Cadenamoiz BAER Work Phone: [employer] 02-01-2022 06:23-0400 Body weight 90.27 kg Ino Cadenamoiz BAER Work Phone: [employer] 01-22-2022 12:11-0400 Body height 162.6 cm Stcz 2 [employer] 01-22-2022 12:11-0400 Body mass index (BMI) [Ratio] 34.16 kg/m2 St[facility] 2 [facility] [employer] 01-22-2022 12:11-0400 Body temperature 97.7 [degF] Stcz 2 [facility] [email or web address] 01-22-2022 12:11-0400 Body weight 90.27 kg [facility] [employer] 01-22-2022 12:11-0400 Diastolic blood pressure 77 mm[Hg] Stcz 2 [facility] [email or web address] 01-22-2022 12:11-0400 Heart rate 63 /min Stcz 2 [facility] [email or web address] 01-22-2022 12:11-0400 Respiratory rate 16 /min Stcz 2 [facility] [email or web address] 01-22-2022 12:11-0400 SaO2% (BldA) [Mass fraction] 100 % [facility] 01-22-2022 12:11-0400 Systolic blood pressure 131 mm[Hg] Stcz 2 [facility] [email or web address] 09-29-2021 10:35-0400 Body temperature 97.5 [degF] Constantine Sanchez MD Work Phone: [employer] 09-29-2021 10:35-0400 Diastolic blood pressure 58 mm[Hg] Constantine Sanchez MD Work Phone: [employer] 09-29-2021 10:35-0400 Heart rate 58 /min Constantine Sanchez MD Work Phone: [employer] 09-29-2021 10:35-0400 Respiratory rate 12 /min Constantine Sanchez MD Work Phone: [employer] 09-29-2021 10:35-0400 SaO2% (BldA) [Mass fraction] 98 % Constantine Sanchez MD Work Phone: [facility] 09-29-2021 10:35-0400 Systolic blood pressure 92 mm[Hg] Constantine Sanchez MD Work Phone: [facility] 09-29-2021 07:46-0400 Body height 160 cm Constantine Sanhcez MD Work Phone: [facility] 09-29-2021 07:46-0400 Body mass index (BMI) [Ratio] 34.37 kg/m2 Constantine Sanchez MD Work Phone: [facility] 09-29-2021 07:46-0400 Body weight 88 kg Constantine Sanchez MD Work Phone: [facility] 09-15-2021 10:28-0500 Body height 160 cm Stcz 3 [facility] Encounters Encounter Date Encounter Type Care Provider Facility Start: 11-24-2024 End: 11-24-2024 ambulatory [facility] Start: 11-24-2024 End: 11-24-2024 Encounter for gynecological examination (general) (routine) without abnormal findings [facility] Start: 11-24-2024 End: 11-24-2024 Subsequent hospital visit by physician Candy Gee PA-C Work Phone: [facility] Start: 11-20-2024 End: 11-20-2024 Office outpatient new 45 minutes Chana Hurtado MD Work Phone: [facility] Adult Endocrinology, A Department of [facility] Comment on above: Acquired hypothyroid ism (Primary Dx) Start: 11-20-2024 ambulatory CHANA HURTADO [facility] Start: 10-14-2024 End: 10-14-2024 Bamboo flowsheet Candy PRUITT Work Phone: [facility] Start: 10-14-2024 End: 10-14-2024 Bamboo flowsheet Candy PRUITT Work Phone: [facility] Start: 10-14-2024 End: 10-14-2024 Office outpatient visit 25 minutes Candy PRUITT Work Phone: [facility] Comment on above: Abnormal finding on imaging of liver (Primary Dx); Hepatic lesion; Hypokalemia; Vitamin D deficiency; Vitamin B-complex deficiency; Acquired hypothyroidism (CMS/HCC); Elevated LDL cholesterol level (CMS/HCC); PSVT (paroxysmal supraventricular tachycardia) (CMS/HCC); Tubular adenoma Start: 10-14-2024 End: 10-14-2024 ambulatory CANDY GEE Not Available Start: 10-13-2024 End: 10-13-2024 ambulatory [facility] Start: 08-20-2024 ambulatory [facility] Facility:[facility] Start: 08-20-2024 End: 08-20-2024 Subsequent hospital visit by physician [facility] (Istat/1.5t) Work Phone: [facility] Start: 08-04-2024 End: 08-04-2024 ambulatory [facility] Start: 07-30-2024 End: 07-30-2024 Office outpatient visit 25 minutes Candy PRUITT Work Phone: [facility] Comment on above: 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); Thoracic spine pain; Wanda's disease (CMS/HCC); Spondylosis of lumbosacral 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thy Start: 07-30-2024 End: 07-30-2024 ambulatory CANDY GEE Not Available Start: 07-30-2024 End: 07-30-2024 Bamboo flowsheet Candy PRUITT Work Phone: [facility] Start: 07-30-2024 End: 07-30-2024 Bamboo flowsheet Candy Gee PA Work Phone: [facility] Start: 07-11-2024 End: 07-11-2024 Clinisync Result Encounter Generic External Data Provider [facility] External Department Unsolicited Start: 07-11-2024 End: 07-11-2024 Clinisync Result Encounter Generic External Data Provider [facility] External Department Unsolicited Start: 06-24-2024 End: 06-24-[address] [facility] Start: 05-20-2024 End: 05-20-[address] [facility] Start: 04-24-2024 End: 04-26-2024 ambulatory SAMANTHA WEAVER [facility] Start: 04-24-2024 End: 04-26-2024 Subsequent hospital visit by physician [place] [facility] Mammography Comment on above: Encounter for screen ing mammogram for malignant neoplasm of breast Start: 03-31-2024 End: 03-31-2024 Bamboo flowsheet Candy Gee PA Work Phone: [facility] Start: 03-31-2024 End: 03-31-2024 Bamboo flowsheet Candy Gee PA Work Phone: [facility] Start: 03-31-2024 End: 03-31-2024 ambulatory CANDY GEE Not Available Start: 03-31-2024 End: 03-31-2024 Office outpatient visit 25 minutes Candy PRUITT Work Phone: [facility] Comment on above: Palpitation (Primary Dx); Shortness of breath; Acquired hypothyroidism (CMS/HCC) Start: 02-12-2024 End: 02-12-2024 ambulatory ALEJANDRO Gilliam LIN Not Available Start: 08-15-2023 Bamboo flowsheet Candy Farr r PA Work Phone: [facility] Start: 08-15-2023 Bamboo flowsheet Candy Farr r PA Work Phone: [facility] Start: 08-15-2023 End: 08-15-2023 Patient encounter status Candy Gee PA Work Phone: [facility] Work Phone: Start: 08-15-2023 End: 08-15-2023 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 Cadny Gee PA Work Phone: [facility] Comment on [...] with diarrhea; Schatzki's ring of distal esophagus; Birmingham-Walker grade 3 cystocele; Cystocele, midline; Enlarged uterus; [...] to pollen; Tubular adenoma; Vision abnormalities Start: 08-14-2023 Chart abstracting Candy PRUITT Work Phone: [facility] Start: 03-20-2022 End: 03-22-2022 Subsequent hospital visit by physician [place] Hopson [facility] Mammography Comment on above: Post-menopausal Start: 02-01-2022 End: 02-02-2022 Evaluation and management of inpatient Ino Brothers DO Work Phone: [facility] Comment on above: Cystocele, unspecifi ed (CODE) Start: 01-22-2022 End: 01-24-2022 Subsequent hospital visit by physician [place] Xr Room [facility] Radiology Comment on above: Arrived Start: 01-22-2022 End: 01-26-2022 Patient encounter status [facility] 2 [facility] Pre-Admit Testing Start: 01-22-2022 End: 01-26-2022 Subsequent hospital visit by physician Mamta Jeronimo 2 [facility] Pre-Admit Testing Comment on above: Pre-op testing Start: 12-27-2021 End: 12-27-2021 Subsequent hospital visit by physician Candy Gee Work Phone: [facility] Laboratory Comment on above: Overflow incontinenc e Start: 12-25-2021 End: 12-27-2021 Subsequent hospital visit by physician [facility] Mammo Rm 119 [facility] Mammography Comment on above: Encounter for screen ing mammogram for malignant neoplasm of breast Start: 09-29-2021 End: 09-29-2021 Subsequent hospital visit by physician Constantine Sanchez MD Work Phone: [facility] Start: 09-25-2021 End: 09-25-2021 Patient encounter status [facility] Schedule [facility] Covid Scre ening Start: 09-25-2021 End: 09-25-2021 Subsequent hospital visit by physician Mamta Covid Screening Schedule [facility] Covid Screening Comment on above: Pre-op testing (Prim jane Dx) Start: 09-15-2021 End: 09-19-2021 Subsequent hospital visit by physician Mamta Pat 3 [facility] Pre-Admit Testing Start: 12-14-2020 End: 12-16-2020 Subsequent hospital visit by physician [facility] Mammo Rm 119 [facility] Mammography Comment on above: Visit for screening mammogram Start: 06-15-2019 End: 06-15-2019 Subsequent hospital visit by physician Candy Gee Work Phone: [facility] Laboratory Start: 07-23-2017 End: 07-23-2017 Ambulatory CANDY GEE Facility:[facility] Procedures Date Procedure Procedure Detail Performing Clinician Start: 08-20-2024 Cardiac mri w/wo con trast & further seq [facility] Provider Start: 07-11-2024 ALL BASIC METABOLIC PANEL Generic External Data Provider Start: 04-24-2024 Mammography Generic Pr ovider Start: 04-12-2023 Mammography Candy PRUITT Work Phone: Start: 11-21-2022 Microscopic observat ion [Identifier] in Cervix by Cyto stain Candy PRUITT Work Phone: Start: 03-20-2022 Dxa bone density faye dy 1/> sites axial caryl Cadenabaum DO Work Phone: Start: 02-01-2022 Blood count hemoglobin Margarito Saldivar MD Work Phone: Start: 02-01-2022 Urnls dip stick/tabl et rgnt auto w/o microscopy Margarito Saldivar MD Work Phone: Start: 02-01-2022 End: 02-01-2022 Anterior colporraphy rpr cystocele w/cysto Ino Estrellita Brothers DO Work Phone: Start: 01-22-2022 Antibody [...] 01-22-2022 Blood typing serolog ic abo Ino Estrellita Brothers DO Work Phone: Start: 01-22-2022 Gonadotropin chorion ic quantitative Ino Estrellita Brothers DO Work Phone: Start: 12-27-2021 Urinalysis microscop ic only Ino Estrellita Brothers DO Work Phone: Start: 12-27-2021 Urnls dip stick/tabl et rgnt auto w/o microscopy Ino Estrellita Brtohers DO Work Phone: Start: 12-25-2021 Screening mammograph y bi 2-view breast inc cad Ino Estrellita Brothers DO Work Phone: Start: 11-23-2021 Microscopic observat ion [Identifier] in Cervix by Cyto stain Candyalvaro Gee Work Phone: Start: 09-29-2021 Colonoscopy Constantine toscano MD Work Phone: Start: 12-14-2020 Screening mammograph y bi 2-view breast inc cad Rose Bateslli Zev DO Work Phone: Start: 06-15-2019 Assay of free thyroxine Candy Gee Work Phone: Start: 07-28-2018 Microscopic observat ion [Identifier] in Cervix by Cyto stain [facility] 3 Start: 01-20-2018 Colonoscopy [facility] 3 Start: 11-17-2015 H/O: tubal ligation H/O tubal ligati on Candy Teresanilesh Work Phone: H/O: tubal ligation H/O tubal ligation Ka roland PRUITT Work Phone: Plan of Treatment Date Care Activity Detail Author Start: 2037 RSV Vaccine (1 - 1-dose 75+ series) RSV Vaccine (1 - 1-dose 75+ series) [facility] Start: 01-21-2028 Screening for malignant neoplasm of colon [facility] Start: 11-22-2027 Screening for malignant neoplasm of cervix [facility] Start: 04-24-2026 Screening for malignant neoplasm of breast Breast cancer screen [facility] Start: 11-24-2025 Depression Screen Depression Screen [facility] Start: 11-24-2025 End: 11-24-2025 Patient encounter procedure 11/24/2025 9:00 AM EDT Off ice Visit [facility] Obstetrics & Gynecology [address] [facility] [address] [place] [phone] Samantha Weaver APRN - [employer] [address] [address] annual [facility] Obstetrics & Gynecology Comment on above: annual Start: 11-21-2025 Screening for malignant neoplasm of cervix Pap Smear [facility] Start: 09-05-2025 [facility]id panel [facility] Start: 04-24-2025 Screening for malignant neoplasm of breast [facility] Start: 04-12-2025 Screening for malignant neoplasm of breast Breast cancer screen [facility] Start: 04-08-2025 End: 04-08-2025 Admission to same day surgery center 04/08/2025 12:00 PM EDT - 04/08/2025 12:30 PM EDT Surgery [facility] [address] [place] [address] Constantine Sanchez MD [address] [place] [id number] ESOPHAGOGASTRODUODENOSCOPY BIOPSY [facility] OR Comment on above: ESOPHAGOGASTRODUODENOSCOPY BIOPSY Start: 04-08-2025 End: 04-08-2025 Egd transoral biopsy single/multiple ESOPHAGOGASTRODUODENOSCOPY BIOPSY EE (eosinophilic esophagitis) Diverticulosis of colon Weight loss Gastric mass GERD (gastroesophageal reflux disease) 04/08/2025 12:00 PM EDT [facility] Start: 04-08-2025 Subsequent hospital visit by physician 04/08/2025 12:00 [place] [address] [place] [id number] Constantine Sanchez MD [address] [place] [id number] [facility] Start: 03-08-2025 Influenza vaccination [facility] Start: 01-22-2025 Diabetes Screening Diabetes Screening [facility] Start: 11-24-2024 Depression Screen Depression Screen [facility] Start: 11-24-2024 End: 11-24-2024 Patient encounter procedure 11/24/2024 9:00 AM EDT Off ice Visit [facility] Obstetrics & Gynecology [address] [phone] Samantha Weaver APRN - CINDY [address] [phone] annual [facility] Obstetrics & Gynecology Comment on above: annual Start: 11-23-2024 Screening for malignant neoplasm of cervix [facility] Start: 10-14-2024 End: 10-14-2025 Alpha fetoprotein, L3 percent Alpha fetoprotein, L3 pe rcent Lab Routine Abnormal finding on imaging of liver Hepatic lesion Expected: 10/14/2024 (Approximate), Expires: 10/14/2025 [facility] Comment on above: Expected: 10/14/2024 (Approximate), Expi res: 10/14/2025 Start: 10-14-2024 End: 10-14-2025 Cobalamin (Vitamin B12) [Mass/volume] in Serum or Plasma Vitamin B12 Lab Routine Vitamin B-complex deficiency Expected: 10/14/2024 (Approximate), Expires: 10/14/2025 [facility] Comment on above: Expected: 10/14/2024 (Approximate), Expi res: 10/14/2025 Start: 10-14-2024 End: 10-14-2025 Creatinine [Mass/volume] in Serum or Plasma Creatinine, Serum Lab Routine Abnormal finding on imaging of liver Hepatic lesion Hypokalemia Expected: 10/14/2024 (Approximate), Expires: 10/14/2025 [facility] Comment on above: Expected: 10/14/2024 (Approximate), Expi res: 10/14/2025 Start: 10-14-2024 End: 10-14-2025 CT Abdomen and Pelvis W contrast IV CT abdomen pelvis w IV contrast Imaging Routine Abnormal finding on imaging of liver Hepatic lesion Expected: 10/14/2024, Expires: 10/14/2025 [facility] Work Phone: Comment on above: Expected: 10/14/2024, Expires: Start: 10-14-2024 End: 10-14-2024 Patient encounter procedure 10/14/2024 9:30 AM EDT Off [place] Visit [facility] [address] [facility] [address] [place] [phone] Candy Gee PA [address] [place] [address] Arrived [facility] Comment on above: Arrived Start: 10-01-2024 Administration of varicella zoster vaccine Zoster (Shingles) Vaccine (2 of 3) [facility] Start: 09-29-2024 Screening for malignant neoplasm of colon [facility] Start: 07-30-2024 End: 07-30-2024 Patient encounter procedure 07/30/2024 3:00 PM EST Off [place] Visit [facility] [address] [place] [phone] Candy Gee PA [address] [place] [address] Arrived [facility] Comment on above: Arrived Start: 07-30-2024 End: 07-30-2025 XR Thoracic spine 4 Views XR thoracic spine complete 4 + views Imaging Routine 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 or radiculopathy Thoracic spine pain Expected: 07/30/2024, Expires: 07/30/2025 [facility] Work Phone: Comment on above: Expected: 07/30/2024, Expires: Start: 04-12-2024 Screening for malignant neoplasm of breast Mammogram [facility] Start: 03-31-2024 End: 03-31-2025 Holter monitor study Holter monitor Imaging Routi ne Palpitation Shortness of breath Expected: 03/31/2024 (Approximate), Expires: 03/31/2025 [facility] Work Phone: Comment on above: Expected: 03/31/2024 (Approximate), Expi res: 03/31/2025 Start: 03-08-2024 COVID-19 Vaccine ( season) COVID-19 Vaccine ( season) [facility] Start: 03-08-2024 Covid-19 Vaccine ( season) Covid-19 Vaccine ( season) [facility] Start: 03-08-2024 Influenza vaccination Influenza Vaccine (#1) [facility] Start: 02-13-2024 End: 02-13-2024 Patient encounter procedure 02/13/2024 10:00 AM EDT Of fice Visit [facility] [address] [place] [phone] Candy Gee PA [address] [facility] [address] [place] [address] [facility] Start: 02-06-2024 Influenza vaccination Flu vaccine (#1) [facility] Start: 01-22-2024 DTaP,Tdap and Td Vaccines (2 - Td or Tdap) DTaP,Tdap and Td Vaccines (2 - Td or Tdap) [facility] Start: 01-22-2024 DTaP/Tdap/Td vaccine (2 - Td or Tdap) DTaP/Tdap/Td vaccine (2 - Td or Tdap) [facility] Start: 01-22-2024 Urine microalbumin profile DTaP,Tdap,Td Vaccine (2 - T d or Tdap) [facility] Start: 12-26-2023 Screening for malignant neoplasm of breast Breast cancer screen [facility] Start: 09-26-2023 End: 08-15-2024 Triiodothyronine (T3) Free [Mass/volume] in Serum or Plasma T3, free Lab Routine Acquired hypothyroidism (CMS/HCC) 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) Expected: 09/26/2023 (Approximate), Expires: 08/15/2024 [facility] Comment on above: Expected: 09/26/2023 (Approximate), Expi res: 08/15/2024 Start: 09-19-2023 End: 08-15-2024 Thyrotropin [Units/volume] in Serum or Plasma TSH Lab Routine Acquired hypothyroidism (CMS/HCC) 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) Expected: 09/19/2023 (Approximate), Expires: 08/15/2024 [facility] Comment on above: Expected: 09/19/2023 (Approximate), Expi res: 08/15/2024 Start: 09-19-2023 End: 08-15-2024 Thyroxine (T4) free [Mass/volume] in Serum or Plasma T4, free Lab Routine Acquired hypothyroidism (CMS/HCC) 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) Expected: 09/19/2023 (Approximate), Expires: 08/15/2024 [facility] Comment on above: Expected: 09/19/2023 (Approximate), Expi res: 08/15/2024 Start: 08-15-2023 End: 08-15-2024 25-hydroxyvitamin D3 [Mass/volume] in Serum or Plasma Vitamin D 25 hydroxy Lab Routine Wellness examination Vitamin D deficiency Expected: 08/15/2023 (Approximate), Expires: 08/15/2024 [facility] Comment on above: Expected: 08/15/2023 (Approximate), Expi res: 08/15/2024 Start: 08-15-2023 End: 08-15-2024 CBC W Auto Differential panel - Blood CBC and differential Lab Routine Wellness examination Other specified disorders involving the immune mechanism, 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) Bruises easily Chronic fatigue Expected: 08/15/2023 (Approximate), Expires: 08/15/2024 [facility] Work Phone: Comment on above: Expected: 08/15/2023 (Approximate), Expi res: 08/15/2024 Start: 08-15-2023 End: 08-15-2024 Cobalamin (Vitamin B12) [Mass/volume] in Serum or Plasma Vitamin B12 Lab Routine Wellness examination Vitamin B-complex deficiency Expected: 08/15/2023 (Approximate), Expires: 08/15/2024 [facility] Comment on above: Expected: 08/15/2023 (Approximate), Expi res: 08/15/2024 Start: 08-15-2023 End: 08-15-2024 Comprehensive metabolic 2000 panel - Serum or Plasma Comprehensive metabolic panel Lab Routine Wellness examination Chronic fatigue Hypokalemia Lipoprotein deficiency disorder (CMS/HCC) Expected: 08/15/2023 (Approximate), Expires: 08/15/2024 [facility] Comment on above: Expected: 08/15/2023 (Approximate), Expi res: 08/15/2024 Start: 08-15-2023 End: 08-15-2024 Lipid 1996 panel - Serum or Plasma Lipid panel Lab Routine Wellness examination Lipoprotein deficiency disorder (CMS/HCC) Expected: 08/15/2023 (Approximate), Expires: 08/15/2024 [facility] Comment on above: Expected: 08/15/2023 (Approximate), Expi res: 08/15/2024 Start: 08-15-2023 End: 08-15-2024 Thyrotropin [Units/volume] in Serum or Plasma TSH Lab Routine Wellness examination Acquired hypothyroidism (CMS/HCC) 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) Expected: 08/15/2023 (Approximate), Expires: 08/15/2024 [facility] Comment on above: Expected: 08/15/2023 (Approximate), Expi res: 08/15/2024 Start: 08-15-2023 End: 08-15-2024 Thyroxine (T4) free [Mass/volume] in Serum or Plasma T4, free Lab Routine Wellness examination Acquired hypothyroidism (CMS/HCC) 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) Expected: 08/15/2023 (Approximate), Expires: 08/15/2024 [facility] Comment on above: Expected: 08/15/2023 (Approximate), Expi res: 08/15/2024 Start: 08-15-2023 End: 08-15-2024 Triiodothyronine (T3) Free [Mass/volume] in Serum or Plasma T3, free Lab Routine Wellness examination Acquired hypothyroidism (CMS/HCC) 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) Expected: 08/15/2023 (Approximate), Expires: 08/15/2024 [facility] Comment on above: Expected: 08/15/2023 (Approximate), Expi res: 08/15/2024 Start: 08-15-2023 End: 08-15-2023 Patient encounter procedure [facility] Comment on above: Arrived Start: 07-28-2023 Screening for malignant neoplasm of cervix [facility] Start: 04-23-2023 Adult BMI Screening Adult BMI Screening [facility] Start: 03-08-2023 Influenza vaccination Influenza Vaccine (#1) [facility] Start: 12-14-2022 Screening for malignant neoplasm of breast Breast cancer screen [facility] Start: 2022 Respiratory Syncytial Virus (RSV) or age 60 yrs+ (1 - 1-dose 60+ series) Respiratory Syncytial Virus (RSV) or age 60 yrs+ (1 - 1-dose 60+ series) [facility] Start: 2022 Respiratory Syncytial Virus (RSV) or age 60 yrs+ (1 - Risk 60-74 years 1-dose series) Respiratory Syncytial Virus (RSV) or age 60 yrs+ (1 - Risk 60-74 years 1-dose series) [facility] Start: 07-24-2022 End: 07-24-2022 Patient encounter procedure 07/24/2022 Office Visit Obstetrics and Gynecology Ino Brothers, [address] [place] [id number] [facility] Obstetrics & Gynecology Start: 06-22-2022 End: 06-22-2022 Patient encounter procedure 06/22/2022 Office Visit Urology Samy Resendez MD [address] [place] [address] [facility] Start: 03-08-2022 Influenza vaccination [facility] Start: 02-20-2022 End: 02-20-2022 Patient encounter procedure 02/20/2022 Office Visit Obstetrics and Gynecology Ino Brothers, [address] [place] [address] [facility] Ob[facility]etrics & Gynecology Start: 02-01-2022 End: 02-01-2022 Admission to same day surgery center 02/01/2022 Surgery IP Unit Ino Brothers, [address] [place] [phone] VAGINAL ANTERIOR REPAIR [facility] Comment on above: VAGINAL ANTERIOR REPAIR Start: 02-01-2022 End: 02-01-2022 Anterior colporraphy rpr cystocele w/cysto VAGINAL ANTERIOR REPAIR Cystocele, unspecified (CODE) 02/01/2022 8:00 AM EDT [facility] Start: 02-01-2022 Subsequent hospital visit by physician 02/01/2022 Hospital Encounter IP Unit Ino Brothers DO [address] [facility], [address] [place] [address] [facility] Start: 12-29-2021 End: 12-29-2021 Patient encounter procedure 12/29/2021 Office Visit Urology Samy Resendez MD [address] [place] [address] [facility] Start: 09-29-2021 End: 09-29-2021 Admission to same day surgery center 09/29/2021 Surgery Endoscopy Constantine Sanchez MD [address] [facility], [address] [place] [address] EGD [facility] Comment on above: EGD Start: 09-29-2021 End: 09-29-2021 Colonoscopy flx dx w/collj spec when pfrmd [facility] Start: 09-29-2021 End: 09-29-2021 Esophagogastroduodenoscopy transoral diagnostic [facility] Start: 09-29-2021 Subsequent hospital visit by physician 09/29/2021 Hospital Encounter Endoscopy Constantine Sanchez MD [address] [facility], [address] [place] [address] [facility] Start: 09-25-2021 End: 09-22-2022 COVID-19 [facility] Work Phone: Comment on above: Expected: 09/25/2021, Expires: 3 Once for 1 Occurrenc es starting 09/25/2021 until 09/25/2021 Start: 09-25-2021 End: 09-25-2021 Patient encounter procedure 09/25/2021 Appointment Lab [facility] Covid Screening Start: 07-28-2021 Screening for malignant neoplasm of cervix [facility] Start: 03-08-2021 Influenza vaccination [facility] Start: 01-20-2021 Colon cancer screen colonoscopy Colon cancer screen colonoscopy [facility] Work Phone: Start: 01-20-2021 Screening for malignant neoplasm of colon [facility] Start: 08-11-2020 Breast cancer screen Breast cancer screen [employer] Phone: Start: 06-15-2020 Thyroid stimulating hormone measurement TSH testing [facility] Start: 01-15-2020 TSH testing TSH testing [employer] [facility] Phone: Start: 07-28-2019 Cervical cancer screen Cervical cancer screen [employer] [facility] Phone: Start: 07-28-2019 Screening for malignant neoplasm of cervix Cervical cancer screen [employer] [facility] Phone: Start: 03-08-2019 Influenza vaccination Flu vaccine (#1) [employer] [facility] Phone: Start: 01-20-2019 Screening for malignant neoplasm of colon [facility] Start: 11-16-2018 Diabetes screen Diabetes screen [facility] Start: 2012 Pneumococcal 50+ years Vaccine (1 of 1 - PCV) Pneumococcal 50+ years Vaccine (1 of 1 - PCV) [facility] Start: 2012 Pneumococcal Vaccine: 50+ (1 of 1 - PCV) Pneumococcal Vaccine: 50+ (1 of 1 - PCV) [facility] Start: 2012 Shingles Vaccine (1 of 2) Shingles Vaccine (1 of 2) [facility] Start: 2012 Shingrix Vaccine (1 of 2) Shingrix Vaccine (1 of 2) [facility] Start: 10-29-2007 Lipid panel Lipid Screening [facility] Start: 10-29-2007 Screening for malignant neoplasm of colon [facility] Start: 2002 Lipid panel [facility] Start: 2002 [email or web address] Start: 1981 DTaP/Tdap/Td vaccine (1 - Tdap) DTaP/Tdap/Td vaccine (1 - Tdap) [employer] [facility] Phone: Start: 1980 Adult BMI Follow Up Plan Adult BMI Follow Up Plan [facility] Start: 1980 Anxiety Screening Anxiety Screening [facility] Start: 1980 Depression Screening Depression Screening [facility] Start: 1980 Hepatitis C screening Hepatitis C Screening [facility] Start: 1980 HIV screening HIV Screening [facility] Start: 1974 COVID-19 Vaccine (1) COVID-19 Vaccine (1) [employer] [facility] Phone: Start: 1974 Depression Screen Depression Screen [facility] Start: 1974 Depression Screening Depression Screening [facility] Start: 1974 Tobacco Screening Tobacco Screening [facility] Start: 1973 DTaP/Tdap/Td vaccine (1 - Tdap) DTaP/Tdap/Td vaccine (1 - Tdap) [employer] [facility] Phone: Start: 10-29-1967 COVID-19 Vaccine (1) COVID-19 Vaccine (1) [facility] Start: 04-29-1963 COVID-19 Vaccine (#1) COVID-19 Vaccine (#1) [facility] Start: 1962 Screening for malignant neoplasm of colon [facility] 25-hydroxyvitamin D3 [Mass/volume] in Serum or Plasma Vitamin D 25 hydroxy Total Lab Routine Vitamin D deficiency Ordered: 10/14/2024 [facility] Comment on above: Ordered: 10/14/2024 CBC W Auto Different ial panel - Blood CBC and differential Lab Routine Vitamin B-complex deficiency Elevated LDL cholesterol level (CMS/HCC) PSVT (paroxysmal supraventricular tachycardia) (CMS/HCC) Ordered: 10/14/2024 [facility] Comment on above: Ordered: 10/14/2024 Comprehensive metabo lic 2000 panel - Serum or Plasma Comprehensive metabolic panel Lab Routine Abnormal finding on imaging of liver Hepatic lesion Hypokalemia Elevated LDL cholesterol level (CMS/HCC) PSVT (paroxysmal supraventricular tachycardia) (CMS/HCC) Ordered: 10/14/2024 [facility] Comment on above: Ordered: 10/14/2024 End: 04-24-2024 DBT Breast - bilateral screening [employer] Comment on above: 1 Occurrences starting 04/24/2024 until 04/24/2024 End: 09-29-2021 INITIATE PACU OXYGEN THERAPY PROTOCOL Initiate PACU Oxygen Therapy Protocol Respiratory Care Routine Continuous until discontinued starting 09/29/2021 [employer] Phone: Comment on above: Continuous until discontinued starting 0 09/29/2021 End: 02-01-2022 INITIATE PACU OXYGEN THERAPY PROTOCOL Initiate PACU Oxygen Therapy Protocol Respiratory Care Routine Continuous until discontinued starting 02/01/2022 [employer] Phone: Comment on above: Continuous until discontinued starting 0 02/01/2022 Lipid 1996 panel - S nell or Plasma Lipid panel Lab Routine Elevated LDL cholesterol level (CMS/HCC) PSVT (paroxysmal supraventricular tachycardia) ([facility]/HCC) Ordered: 10/14/2024 [facility] Comment on above: Ordered: 10/14/2024 Oxygen therapy [Mini mum Data Set] Initiate Oxygen Therapy Protocol Respiratory Care Routine As Needed until discontinued starting 09/29/2021 [employer] Phone: Comment on above: As Needed until discontinued starting Oxygen therapy [Mini mum Data Set] Initiate Oxygen Therapy Protocol Respiratory Care Routine As Needed until discontinued starting 02/01/2022 [employer] Phone: Comment on above: As Needed until discontinued starting Surgical Pathology Surgical Path ology Lab Routine Release Upon Ordering for 1 Occurrences starting 09/29/2021 [employer] Phone: Comment on above: Release Upon Ordering for 1 Occurrences starting 09/29/2021 Surgical Pathology Surgical Path ology Lab Routine Cystocele, unspecified (CODE) Release Upon Ordering for 1 Occurrences starting 02/01/2022 [employer] Phone: Comment on above: Release Upon Ordering for 1 Occurrences starting 02/01/2022 End: 02-01-2022 SURGICAL PATHOLOGY REPORT SURGICAL PATHOLOGY REPORT La b Routine Once for 1 Occurrences starting 02/01/2022 until 02/01/2022 [employer] Phone: Comment on above: Once for 1 Occurrences starting 02/02/20 until 02/01/2022 End: 06-15-2019 Thyroid Stimulating Receptor Antibody Thyroid Stimulating Receptor Antibody Lab Routine Once for 1 Occurrences starting 06/15/2019 until 06/15/2019 [employer] Phone: Comment on above: Once for 1 Occurrences starting 06/15/20 until 06/15/2019 Thyroid Stimulating Receptor Antibody Thyroid Stimulating Receptor Antibody Lab Routine 06/15/2019 11:37 AM EST [employer] Phone: End: 11-20-2025 Thyrotropin [Units/volume] in Serum or Plasma TSH Lab Routine Acquired hypothyroidism 6 weeks for 6 Occurrences starting 11/20/2024 until 11/20/2025 [employer] Comment on above: 6 weeks for 6 Occurrences starting 11/20 until 11/20/2025 End: 11-20-2025 Thyroxine (T4) free [Mass/volume] in Serum or Plasma T4, free Lab Routine Acquired hypothyroidism 6 weeks for 6 Occurrences starting 11/20/2024 until 11/20/2025 [employer] Comment on above: 6 weeks for 6 Occurrences starting 11/20 until 11/20/2025 End: 11-20-2025 Triiodothyronine (T3) Free [Mass/volume] in Serum or Plasma T3, free Lab Routine Acquired hypothyroidism 6 weeks for 6 Occurrences starting 11/20/2024 until 11/20/2025 [employer] Work Phone: Comment on above: 6 weeks for 6 Occurrences starting 11/20 until 11/20/2025 TSH W/REFLEX TO FT4 TSH W/REFLEX TO FT4 Lab Routine Acquired hypothyroidism (CMS/HCC) Ordered: 10/14/2024 [facility] Comment on above: Ordered: 10/14/2024 Immunizations Immunization Date Immunization Notes Care Provider [facility] 08-06-2024 zoster vaccine, unspecified formulation Chana Hurtado MD Work Phone: [employer] 06-25-2024 influenza virus vaccine, unspecified formulation Chana Hurtado MD [facility] Phone: [facility] 01-21-2014 tetanus toxoid, redu sukhdev diphtheria toxoid, and acellular pertussis vaccine, adsorbed Candy Hemmer Work Phone: MELE SALAZAR [employer] Work Phone: Payers Date Payer Category Payer Unknown [id number] 2018 [employer] [place] [employer] [id number] 2018 [employer] [place] Blue [facility] Managed Care - Other ANTHEM [id number] 2018 Unknown BCBS BCBS xxxxxx [id number] 2018-Present [phone] [id number] [place] [id number] 2018 Unknown [id number] 2016 Unknown [id number] 2016 Unknown BCBS BC[place] - [place] P PO xxxxxxxxxxxxxxx 2016-Present [id number] [place] [address] xxxxxxxxxxxxxxx [id number] 1962 Unknown [id number] 1962 Unknown [id number] 1962 Unknown [id number] 1962 Unknown [id number] 1962 Unknown [id number] 1962 Unknown [id number] 1962 Unknown [id number] 1962 Unknown [id number] Social History Date Type Detail Facility Start: 12-14-2020 End: 11-21-2022 Tobacco smoking status [facility] Never smoker [employer] Phone: Start: 12-14-2020 End: 11-21-2022 Tobacco use and exposure Never used [facility] Start: 12-14-2020 End: 11-20-2024 Alcohol intake Current non-drinker of alcohol (finding) [employer] Phone: Start: 12-14-2020 End: 11-24-2024 Alcohol intake [facility] Start: 1960 Sex Assigned At Not on file [employer] Website Phone: Start: 08-16-2021 End: 02-01-2022 Exposure to SARS-CoV-2 (event) Not sure [employer] Website Phone: Start: 07-10-2023 End: 10-14-2024 Alcohol intake Ex-drinker (finding) [facility] Start: 12-19-2022 End: 11-24-2024 Humiliation, Afraid, Rape, and Kick questionnaire [HARK] [facility] Within the last year , have you been afraid of your partner or ex-partner? Patient refused [facility] Are you now , , , , never or living with a partner? [facility] Start: 02-08-2023 Alcohol Comment Caffeine intake: coffeee [facility] Start: 04-24-2024 End: 11-24-2024 Alcoholic beverage intake Lifetime [facility]-drinker (finding[facility] Start: 11-21-2022 Tobacco Comment I have answered this countless times. [facility] Start: 12-21-2021 Gender identity Identifies as female gender (finding) [facility] Tobacco smoking stat [facility] Tobacco smoking consumption unknown [facility] Do you belong to any clubs or organizations such as sikh groups, unions, fraternal or athletic groups, or school groups? Yes [facility] How often to you hav e a drink containing alcohol? Never [facility] Do you feel stress - tense, restless, nervous, or anxious, or unable to sleep at night because your mind is troubled all the time - these days [OSQ] Not at all [facility] Start: 08-17-2012 End: 02-10-2015 Sex Female (finding) [facility] Goals Date Patient Goal Desired Activity /State Personal health goal Comment on above: Formatting of this n ote might be different from the original. Evaluation of progress towards goal: Patient plans to discharge home with self care and support of spouse. - Shahla Valentine RN 11/30/17 1:39 PM Clinical Notes 09-15-2021 to 11-20-2024 Chana Hurtado MD - 11/20/2024 9:00 AM SONAL Tovar - 10/14/2024 9:30 AM Karlene Hewitt RN - 08/20/2024 10:00 AM Denice Castillo RT(R) - 08/20/2024 10:00 AM ESTDischarsantino Instructions Note Date & Type Note Facility 11-20-2024 History of Present illness Narrative REASON FOR VISIT: Chester Negro is seen in initial consultation today for Hypothyroidism. HPI: Patient reports being diagnosed with hypothyroidism at age 20 and has been on thyroid hormone replacement since. 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 She has however been on levothyroxine for several years now. Levothyroxine dose has been adjusted multiple times based on lab results. Her main complaints at this time include excessive fatigue, diffuse pain, insomnia and overall sense of poor health. Currently taking Levothyroxine 150 mcg daily, on an empty stomach, first thing in the morning, without other medications. Their thyroid levels have been fluctuating. She is currently taking high-dose biotin supplements. We have reviewed thyroid labs from 2023 where TSH was >20 and levothyroxine dose was adjusted to the current dose of 150 mcg daily. She has not had blood work since the last dose change. She reports not feeling well even on this dose of levothyroxine. MEDICATIONS: Current Outpatient Medications Medication Sig Dispense Refill biotin 1,000 mcg tablet,chewable Chew and swallow. cholecalciferol, vitamin D3, 5,000 units tablet Take 1 tablet (5,000 Units total) by mouth in the morning. metoprolol tartrate (LOPRESSOR) 25 mg tablet Take 1 tablet (25 mg total) by mouth in the morning and 1 tablet (25 mg total) before bedtime. vitamin K2 40 mcg tablet Take by mouth. levothyroxine (SYNTHROID) 50 MCG tablet Take 1 tablet (50 mcg total) by mouth in the morning. 90 tablet 3 thyroid, pork, (ARMOUR THYROID) 60 mg tablet Take 1 tablet (60 mg total) by mouth in the morning. 90 tablet 3 No current facility-administered medications for this visit. PAST MEDICAL HISTORY: Past Medical History: Diagnosis Date Arthritis Autoimmune disorder Heart palpitations Hypothyroidism Visual impairment SOCIAL HISTORY: Reviewed ROS: 10 systems have been reviewed and positives are discussed in HPI Wt Readings from Last 3 Encounters: 11/20/24 83.1 kg (183 lb 3.2 oz) 04/23/22 85.3 kg (188 lb) 09/12/21 85.3 kg (188 lb) Body mass index is 35.78 kg/m . Vitals: 11/20/24 0913 BP: 135/81 Pulse: 51 Resp: 16 Weight: 83.1 kg (183 lb 3.2 oz) Height: 152.4 cm (5') PHYSICAL EXAM: General appearance: Well appearing female in no apparent distress. HEENT: EOMI, oropharynx clear, mucous membranes moist. Neck: thyroid Nonpalpable No palpable cervical lymph nodes. Skin: No skin lesions. No nail lesions. No lipohypertrophy at insulin injection sites. Neuro: A & O x 3. Sensation is intact bilaterally to 10 gram monofilament testing. Psych: Mood and affect are appropriate. LABS: Results for orders placed or performed during the hospital encounter of 04/05/21 CBC auto differential Collection Time: 04/05/21 4:19 PM Result Value Ref Range White Blood Cells 4.2 4.0 - 11.0 X10E9/L RBC count 4.22 3.80 - 5.20 X10E12/L Hemoglobin 12.1 11.7 - 15.5 g/dL Hematocrit 34.2 (L) 35 - 47 % MCV 81 80 - 100 fL MCH 28.7 27 - 34 pg MCHC 35.5 32 - 36 g/dL RDW 15.0 11.5 - 15.0 % Platelets 189 150 - 450 X10E9/L MPV 7.9 7 - 12 fL % neutrophils 87.4 % % lymphocytes 6.9 % % monocytes 5.6 % % eosinophils 0.0 % % Basophils 0.1 % Neutrophils Absolute (A) 3.7 1.5 - 6.6 X10E9/L Lymphocytes Absolute 0.3 (L) 1.0 - 3.5 X10E9/L Monocytes Absolute 0.2 0 - 0.9 X10E9/L Eosinophils Absolute 0.0 0.0 - 0.4 X10E9/L Basophils Absolute 0.0 0.0 - 0.2 X10E9/L Basic Metabolic Panel Collection Time: 04/05/21 4:19 PM Result Value Ref Range Sodium 137 134 - 146 mmol/L Potassium, Bld 3.1 (L) 3.5 - 5.0 mmol/L Chloride 100 98 - 109 mmol/L CO2 24 22 - 32 mmol/L Anion gap 13 5 - 15 mmol/L BUN 11 5 - 23 mg/dL Creatinine 0.80 0.40 - 1.00 mg/dL Glucose 113 (H) 65 - 99 mg/dL Calcium 8.3 (L) 8.5 - 10.5 mg/dL GFR MDRD Non Af Amer >60 >59 ml/min/1.73sq.m GFR MDRD Af Amer >60 >59 ml/min/1.73sq.m SARS COV 2 (COVID-19) Cepheid Test Collection Time: 04/05/21 4:21 PM Result Value Ref Range Specimen Naso Pharynx Sent to Testing to be performed at [facility]. COVID-19 [facility] Labs Report to Follow. SARS COV 2 by PCR Collection Time: 04/05/21 4:21 PM [facility]~Serum specimen Result Value Ref Range First Test? NO Employed in Healthcare? NO Symptoms Defined by CDC? YES Symptom Onset? [id number] Hospitalized for Covid? NO ICU for Covid? UNKNOWN Congregate Setting? NO ? NO Specimen Type Naso Pharynx SARS CoV 2 Result Detected (A) Not Detected^Not Detected Protime & INR Collection Time: 04/05/21 4:22 PM Result Value Ref Range Protime 14.1 (H) 9.8 - 13.2 sec Inr 1.2 (H) 0.8 - 1.1 Urine culture Collection Time: 04/05/21 4:39 PM Specimen: Urine, Clean Catch Midstream Result Value Ref Range Culture >100,000 ORGANISMS/mL KLEBSIELLA PNEUMONIAE (A) Culture ALONG WITH FEW NORMAL URO GENITAL JALEEL Susceptibility Klebsiella Pneumoniae - BRANT METHOD Ampicillin <=2 Resistant AMP/SULBACTAM <=2/1 Susceptible Cefazolin <=4 Susceptible Cefotaxime Susceptible (deduced) Ceftriaxone <=1 Susceptible Ciprofloxacin <=0.25 Susceptible Gentamicin <=1 Susceptible Levofloxacin <=0.12 Susceptible Nitrofurantoin 64 Intermediate PIPERACIL/TAZOBACTAM <=4 Susceptible Tobramycin <=1 Susceptible TRIMETH/SULFAMETHOXAZOLE <=1/19 Susceptible Er Extra Urine Collection Time: 04/05/21 4:39 PM Specimen: Urine Result Value Ref Range ER Extra Urine ER EXTRA URINE ORDER IN PROCESS Troponin I Collection Time: 04/05/21 4:40 PM Result Value Ref Range Troponin I 0.02 0.00 - 0.04 ng/mL Lactate w/ Reflex Collection Time: 04/05/21 4:40 PM Result Value Ref Range Lactate w/ Reflex 1.2 0.4 - 2.0 mmol/L C-reactive protein Collection Time: 04/05/21 4:40 PM Result Value Ref Range CRP 10.9 (H) 0.000 - 0.744 mg/dL POCT Nursing Urine Macroscopic UA Collection Time: 04/05/21 5:11 PM Result Value Ref Range Specific gravity SANTIAGO 1.010 1.003 - 1.035 Leukocyte esterase SANTIAGO Negative Negative^Negative Nitrite SANTIAGO Negative Negative^Negative Ph 6.5 5.0 - 8.5 Protein SANTIAGO 100 (A) Negative^Negative mg/dL Urine glucose SANTIAGO Negative Negative^Negative mg/dL Ketones SANTIAGO Trace (A) Negative^Negative mg/dL Urobilinogen SANTIAGO 0.2 <1.1 eu/dL Bilirubin SANTIAGO Small (A) Negative^Negative Hemoglobin SANTIAGO Trace (A) Negative^Negative Troponin I Collection Time: 04/05/21 8:00 PM Result Value Ref Range Troponin I 0.02 0.00 - 0.04 ng/mL Phosphorus Collection Time: 04/05/21 8:00 PM Result Value Ref Range Phosphorus 2.6 2.4 - 4.9 mg/dL Potassium Collection Time: 04/05/21 10:36 PM Result Value Ref Range Potassium, Bld 3.6 3.5 - 5.0 mmol/L Comprehensive metabolic panel Collection Time: 04/06/21 4:38 AM Result Value Ref Range Sodium 139 134 - 146 mmol/L Potassium, Bld 3.9 3.5 - 5.0 mmol/L Chloride 107 98 - 109 mmol/L CO2 26 22 - 32 mmol/L Anion gap 6 5 - 15 mmol/L BUN 10 5 - 23 mg/dL Creatinine 0.43 0.40 - 1.00 mg/dL Glucose 135 (H) 65 - 99 mg/dL Calcium 8.0 (L) 8.5 - 10.5 mg/dL Total Protein 6.1 6.0 - 8.0 g/dL Albumin 2.7 (L) 3.2 - 5.3 g/dL Alkaline Phosphatase 45 39 - 130 U/L AST 30 0 - 41 U/L ALT 21 0 - 31 U/L Total bilirubin 0.7 0.3 - 1.2 mg/dL GFR MDRD Non Af Amer >60 >59 ml/min/1.73sq.m GFR MDRD Af Amer >60 >59 ml/min/1.73sq.m Magnesium Collection Time: 04/06/21 4:38 AM Result Value Ref Range Magnesium 2.1 1.8 - 2.6 mg/dL Phosphorus Collection Time: 04/06/21 4:38 AM Result Value Ref Range Phosphorus 2.4 2.4 - 4.9 mg/dL CBC auto differential Collection Time: 04/06/21 4:38 AM Result Value Ref Range White Blood Cells 3.4 (L) 4.0 - 11.0 X10E9/L RBC count 4.04 3.80 - 5.20 X10E12/L Hemoglobin 11.7 11.7 - 15.5 g/dL Hematocrit 33.2 (L) 35 - 47 % MCV 82 80 - 100 fL MCH 28.9 27 - 34 pg MCHC 35.2 32 - 36 g/dL RDW 14.6 11.5 - 15.0 % Platelets 145 (L) 150 - 450 X10E9/L MPV 7.7 7 - 12 fL % neutrophils 90.4 % % lymphocytes 6.9 % % monocytes 2.6 % % eosinophils 0.0 % % Basophils 0.1 % Neutrophils Absolute (A) 3.0 1.5 - 6.6 X10E9/L Lymphocytes Absolute 0.2 (L) 1.0 - 3.5 X10E9/L Monocytes Absolute 0.1 0 - 0.9 X10E9/L Eosinophils Absolute 0.0 0.0 - 0.4 X10E9/L Basophils Absolute 0.0 0.0 - 0.2 X10E9/L Comprehensive metabolic panel Collection Time: 04/07/21 5:36 AM Result Value Ref Range Sodium 140 134 - 146 mmol/L Potassium, Bld 3.6 3.5 - 5.0 mmol/L Chloride 106 98 - 109 mmol/L CO2 25 22 - 32 mmol/L Anion gap 9 5 - 15 mmol/L BUN 15 5 - 23 mg/dL Creatinine 0.77 0.40 - 1.00 mg/dL Glucose 117 (H) 65 - 99 mg/dL Calcium 8.1 (L) 8.5 - 10.5 mg/dL Total Protein 6.0 6.0 - 8.0 g/dL Albumin 2.7 (L) 3.2 - 5.3 g/dL Alkaline Phosphatase 42 39 - 130 U/L AST 30 0 - 41 U/L ALT 23 0 - 31 U/L Total bilirubin 0.6 0.3 - 1.2 mg/dL GFR MDRD Non Af Amer >60 >59 ml/min/1.73sq.m GFR MDRD Af Amer >60 >59 ml/min/1.73sq.m Magnesium Collection Time: 04/07/21 5:36 AM Result Value Ref Range Magnesium 2.0 1.8 - 2.6 mg/dL Phosphorus Collection Time: 04/07/21 5:36 AM Result Value Ref Range Phosphorus 3.5 2.4 - 4.9 mg/dL CBC auto differential Collection Time: 04/07/21 5:36 AM Result Value Ref Range White Blood Cells 6.2 4.0 - 11.0 X10E9/L RBC count 4.15 3.80 - 5.20 X10E12/L Hemoglobin 11.9 11.7 - 15.5 g/dL Hematocrit 34.0 (L) 35 - 47 % MCV 82 80 - 100 fL MCH 28.6 27 - 34 pg MCHC 35.0 32 - 36 g/dL RDW 14.5 11.5 - 15.0 % Platelets 217 150 - 450 X10E9/L MPV 7.7 7 - 12 fL % neutrophils 91.4 % % lymphocytes 3.4 % % monocytes 4.5 % % eosinophils 0.0 % % Basophils 0.7 % Neutrophils Absolute (A) 5.6 1.5 - 6.6 X10E9/L Lymphocytes Absolute 0.2 (L) 1.0 - 3.5 X10E9/L Monocytes Absolute 0.3 0 - 0.9 X10E9/L Eosinophils Absolute 0.0 0.0 - 0.4 X10E9/L Basophils Absolute 0.0 0.0 - 0.2 X10E9/L D-Dimer Collection Time: 04/07/21 5:36 AM Result Value Ref Range D-dimer 469 (H) <255 ng/mL DDU Ferritin Collection Time: 04/07/21 5:36 AM Result Value Ref Range Ferritin 346 (H) 11 - 307 ng/mL C-reactive protein Collection Time: 04/07/21 5:36 AM Result Value Ref Range CRP 8.2 (H) 0.000 - 0.744 mg/dL Procalcitonin Collection Time: 04/07/21 5:36 AM Result Value Ref Range Procalcitonin 0.09 (H) <0.05 ng/mL Potassium Collection Time: 04/07/21 1:57 PM Result Value Ref Range Potassium, Bld 3.9 3.5 - 5.0 mmol/L Comprehensive metabolic panel Collection Time: 04/08/21 4:58 AM Result Value Ref Range Sodium 139 134 - 146 mmol/L Potassium, Bld 3.7 3.5 - 5.0 mmol/L Chloride 102 98 - 109 mmol/L CO2 27 22 - 32 mmol/L Anion gap 10 5 - 15 mmol/L BUN 21 5 - 23 mg/dL Creatinine 0.64 0.40 - 1.00 mg/dL Glucose 101 (H) 65 - 99 mg/dL Calcium 8.2 (L) 8.5 - 10.5 mg/dL Total Protein 6.0 6.0 - 8.0 g/dL Albumin 2.7 (L) 3.2 - 5.3 g/dL Alkaline Phosphatase 44 39 - 130 U/L AST 24 0 - 41 U/L ALT 23 0 - 31 U/L Total bilirubin 0.4 0.3 - 1.2 mg/dL GFR MDRD Non Af Amer >60 >59 ml/min/1.73sq.m GFR MDRD Af Amer >60 >59 ml/min/1.73sq.m Magnesium Collection Time: 04/08/21 4:58 AM Result Value Ref Range Magnesium 2.2 1.8 - 2.6 mg/dL CBC auto differential Collection Time: 04/08/21 4:58 AM Result Value Ref Range White Blood Cells 5.7 4.0 - 11.0 X10E9/L RBC count 4.25 3.80 - 5.20 X10E12/L Hemoglobin 12.2 11.7 - 15.5 g/dL Hematocrit 34.8 (L) 35 - 47 % MCV 82 80 - 100 fL MCH 28.7 27 - 34 pg MCHC 35.1 32 - 36 g/dL RDW 14.6 11.5 - 15.0 % Platelets 254 150 - 450 X10E9/L MPV 7.7 7 - 12 fL % neutrophils 85.0 % % lymphocytes 7.3 % % monocytes 7.4 % % eosinophils 0.1 % % Basophils 0.2 % Neutrophils Absolute (A) 4.9 1.5 - 6.6 X10E9/L Lymphocytes Absolute 0.4 (L) 1.0 - 3.5 X10E9/L Monocytes Absolute 0.4 0 - 0.9 X10E9/L Eosinophils Absolute 0.0 0.0 - 0.4 X10E9/L Basophils Absolute 0.0 0.0 - 0.2 X10E9/L Potassium Collection Time: 04/08/21 12:48 PM Result Value Ref Range Potassium, Bld 4.3 3.5 - 5.0 mmol/L CBC auto differential Collection Time: 04/09/21 4:56 AM Result Value Ref Range White Blood Cells 7.8 4.0 - 11.0 X10E9/L RBC count 4.44 3.80 - 5.20 X10E12/L Hemoglobin 12.6 11.7 - 15.5 g/dL Hematocrit 36.1 35 - 47 % MCV 81 80 - 100 fL MCH 28.5 27 - 34 pg MCHC 35.0 32 - 36 g/dL RDW 14.4 11.5 - 15.0 % Platelets 299 150 - 450 X10E9/L MPV 7.4 7 - 12 fL % neutrophils 86.4 % % lymphocytes 6.3 % % monocytes 6.9 % % eosinophils 0.3 % % Basophils 0.1 % Neutrophils Absolute (A) 6.7 (H) 1.5 - 6.6 X10E9/L Lymphocytes Absolute 0.5 (L) 1.0 - 3.5 X10E9/L Monocytes Absolute 0.5 0 - 0.9 X10E9/L Eosinophils Absolute 0.0 0.0 - 0.4 X10E9/L Basophils Absolute 0.0 0.0 - 0.2 X10E9/L Basic Metabolic Panel Collection Time: 04/09/21 4:56 AM Result Value Ref Range Sodium 137 134 - 146 mmol/L Potassium, Bld 3.6 3.5 - 5.0 mmol/L Chloride 97 (L) 98 - 109 mmol/L CO2 27 22 - 32 mmol/L Anion gap 13 5 - 15 mmol/L BUN 26 (H) 5 - 23 mg/dL Creatinine 0.78 0.40 - 1.00 mg/dL Glucose 86 65 - 99 mg/dL Calcium 8.5 8.5 - 10.5 mg/dL GFR MDRD Non Af Amer >60 >59 ml/min/1.73sq.m GFR MDRD Af Amer >60 >59 ml/min/1.73sq.m PLAN: 1. Acquired hypothyroidism - T3, free; Standing - T4, free; Standing - TSH; Standing - thyroid, pork, (ARMOUR THYROID) 60 mg tablet; Take 1 tablet (60 mg total) by mouth in the morning. Dispense: 90 tablet; Refill: 3 - levothyroxine (SYNTHROID) 50 MCG tablet; Take 1 tablet (50 mcg total) by mouth in the morning. Dispense: 90 tablet; Refill: 3 Given the fact that patient has felt better on Eaton thyroid in the past, I will switch levothyroxine to a combination of Eaton thyroid plus levothyroxine. I am starting her on 60 mg Eaton thyroid along with 50 mcg levothyroxine and repeat thyroid labs in 6 weeks time. Will keep adjusting levothyroxine dose based on q.6 weeks lab results. We discussed holding biotin supplements for 3 days prior to thyroid lab draw. We discussed the importance of taking thyroid hormone replacement on an empty stomach and very consistently. RETURN TO CLINIC: 6 months documented in this encounter [facility] 10-14-2024 History of Present illness Narrative Images from the original note were not included. Subjective Patient ID: Chester Negro is a 63 y.o. female who presents to discuss test results. Chester is present today to discuss an incidental finding on her MR cardiac morphology and function study she had completed on 08/20/24 with cardiology. It showed a 2.5 cm hepatic lesion and was deferring treatment to PCP. 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 Current Outpatient Medications on File Prior to Visit Medication Sig Dispense Refill acetaminophen (Tylenol 8 Hour) 650 MG ER tablet Take 2 tablets by mouth every 8 (eight) hours if needed for mild pain Do not crush, chew, or split. Aloe Vera 25 MG capsule Take 1 tablet by mouth 1 (one) time each day baclofen (Lioresal) 10 MG tablet Take 1 tablet (10 mg) by mouth as needed at bedtime for muscle spasms 90 tablet 3 Biotin w/ Vitamins C & E (HAIR SKIN & NAILS GUMMIES PO) Take 1 tablet by mouth in the morning. cholecalciferol (D3-5) 5,000 Units tablet Take 1 tablet by mouth in the morning. ELDERBERRY PO Take 1 tablet by mouth in the morning. levothyroxine (Synthroid, Levoxyl) 150 MCG tablet Take 1 tablet (150 mcg) by mouth in the morning. Take on an empty stomach.. 90 tablet 3 loratadine (Claritin) 10 MG tablet Take 10 mg by mouth Daily as needed for allergies metoprolol tartrate (Lopressor) 25 MG tablet Take 25 mg by mouth in the morning and 25 mg before bedtime. No current facility-administered medications on file prior to visit. I have reviewed and reconciled the history and medication list with the patient today. Allergies Allergen Reactions Celecoxib Other Reaction(s): GI Bleeding Gabapentin Other Reaction(s): Stomach Upset Meloxicam Other Other Reaction(s): Stomach Ulcer Penicillins Swelling Shellfish-Derived Products Diarrhea, GI intolerance and Other Social History Tobacco Use Smoking status: Never Smokeless tobacco: Never Vaping Use Vaping status: Never Used Substance Use Topics Alcohol use: Not Currently [...] arthroplasty and tendo transfer Visit Vitals BP 116/72 Pulse 54 Resp 16 Ht 5' 4 Wt 182 lb 9.6 oz SpO2 98% BMI 31.34 kg/m Smoking Status Never BSA 1.93 m Review of Systems Constitutional: Negative for chills, fatigue and fever. Respiratory: Negative for cough, shortness of breath and wheezing. Cardiovascular: Negative for chest pain, palpitations and leg swelling. Gastrointestinal: Negative for abdominal pain, constipation, diarrhea, nausea and vomiting. Skin: Negative for rash. Objective Physical Exam Constitutional: General: She is not in acute distress. Appearance: Normal appearance. She is well-developed. HENT: Head: Normocephalic and atraumatic. Eyes: General: No scleral icterus. Conjunctiva/sclera: Conjunctivae normal. Cardiovascular: Rate and Rhythm: Normal rate and regular rhythm. Heart sounds: Normal heart sounds. No murmur heard. Pulmonary: Effort: Pulmonary effort is normal. No respiratory distress. Breath sounds: Normal breath sounds. No wheezing, rhonchi or rales. Skin: General: Skin is warm and dry. Neurological: General: No focal deficit present. Mental Status: She is alert and oriented to person, place, and time. Psychiatric: Mood and Affect: Mood is anxious (Mildly). Behavior: Behavior normal. Assessment/Plan Diagnoses and all orders for this visit: Abnormal finding on imaging of liver - CT abdomen pelvis w IV contrast; Future - Creatinine, Serum; Future - Comprehensive metabolic panel - Alpha fetoprotein, L3 percent; Future Incidental finding on recent Cardiac MRI. -MRI on 08/20/2024 showed: Extracardiac finding relevant for a 2.5 cm lobulated hyperintense hepatic lesion, that is not fully characterized on current study. Defer clinical correlation and dedicated imaging to primary physician. -11/30/2017 CT ABD: There is what looks like a cyst in the deep portion of the left hepatic lobe adjacent to the left hepatic vein, now measuring around 25 mm. Discussed both previous imaging results with patient. There was some concern for weight loss, but advised pt that her weight has been within 2-3 pounds over the last year according to our records. She states the weight loss was before that point. Hepatic lesion - CT abdomen pelvis w IV contrast; Future - Creatinine, Serum; Future - Comprehensive metabolic panel - Alpha fetoprotein, L3 percent; Future Cannot be certain that the previously seen cystic lesion is the same that was visualized on MRI. It is medically necessary for dedicated testing to further evaluate the hepatic lesion and assess for/rule out any other masses or lesions in the ABD/Pelvic cavities. Hypokalemia - Creatinine, Serum; Future - Comprehensive metabolic panel Will recheck with upcoming labs. Vitamin D deficiency - Vitamin D 25 hydroxy Total Will recheck with upcoming labs. Vitamin B-complex deficiency - CBC and differential - Vitamin B12; Futur Will recheck with upcoming labs. Acquired hypothyroidism (CMS/HCC) - TSH W/REFLEX TO FT4 Seeing Endocrinology on November 20 in [place], Dr. Chana Hurtado. Her TSH has been as high as 165.3 on 10/23/2021. Have been monitoring and adjusting medication. Most recent TSH was 0.573 on 07/11/2024. Elevated LDL cholesterol level (CMS/HCC) - CBC and differential - Comprehensive metabolic panel - Lipid panel Will recheck with upcoming labs. PSVT (paroxysmal supraventricular tachycardia) (CMS/HCC) - CBC and differential - Comprehensive metabolic panel - Lipid panel The patient is seeing a chief medical technologist for this condition, treatment is deferred to that specialist. Correspondence from that specialist and any available testing were reviewed during today's visit. Tubular adenoma Patient has contacted Dr. Constantine Sanchez's office in [place], will getting an updated Colonoscopy, scheduled to see him in December, but is on a cancellation list. Follow up for Wellness. documented in this encounter [facility] 10-13-2024 Note [place] [facility] Reason for visit: Palpitations/shortness of breath 10/13/24 Patient here for a follow up Cardiac MR which was normaI. Patient states she is no longer taking Farxiga due to a bad reaction with her Kidneys. Prior HPI: Chester Negro is a 63 y.o. year old with past medical history of hypothyroidism, history of eosinophilic esophagitis, diastolic dysfunction has been experiencing palpitation for some time she had been seen by Dr. VERA in the past and had been evaluated at [facility] also. She had initially battled COVID infection in 2019 and since that time her blood pressure has been low and so her beta-chinyere (metoprolol) was stopped in July 2023 she started noticing increasing palpitations. And they feel like this occurs on a fairly routine basis which makes her lightheaded and markedly symptomatic. There is no alejandra syncope that is occurred. She feels markedly short of breath when this happens. Today in the clinic she states that she feels approximately 5 out of 10 and during the time I examined her pulse she was noted to be in regular normal sinus rhythm. Thereafter I made her walk, and this caused her to have marked shortness of breath despite the pulse showing sinus tachycardia. She had stress test and echo back in May 2024. Farxiga was stopped by Dr. Figueroa due to pain in her kidneys. She says she also stopped taking spironolactone at that time. Still having intermittent chest pain, SOB, palpitations, and lightheadedness. She is short of breath with minimal activity including washing the dishes, moving around the house or performing other physical activities Denies chest pain PMH: Past Medical History: Diagnosis Date Abnormal ECG PSH: Past Surgical History: Procedure Laterality Date FINGER SURGERY SH: Social Determinants of Health Tobacco Use: Low Risk (10/13/2024) Patient History Smoking Tobacco Use: Never Smokeless Tobacco Use: Never Passive Exposure: Not on file Alcohol Use: Not At Risk (04/05/2021) Received from [employer] [facility] Frequency of Alcohol Consumption: Never Average Number of Drinks: Not on file Frequency of Binge Drinking: Never Financial Resource Strain: Low Risk (04/05/2021) Received from [employer] Overall Financial Resource Strain (CARDIA) Difficulty of Paying Living Expenses: Not hard at all Food Insecurity: Not on file Transportation Needs: No Transportation Needs (04/05/2021) Received from [employer] PRAP[facility] - Transportation Lack of Transportation (Medical): No Lack of Transportation (Non-Medical): No Physical Activity: Unknown (12/19/2022) Received from [employer] [facility] Exercise Vital Sign Days of Exercise per Week: 6 days Minutes of Exercise per Session: Not on file Stress: No Stress Concern Present (04/05/2021) Received from [employer] [place] [facility] [employer] [facility] - Occupational Stress Questionnaire Feeling of Stress : Not at all Social Connections: Unknown (12/19/2022) Received from [employer] [facility] Social Connection and Isolation Panel [NHANES] Frequency of Communication with Friends and Family: Not on file Frequency of Social Gatherings with Friends and Family: Not on file Attends Scientologist Services: Not on file Active Member of Clubs or Organizations: Patient declined Attends Club or Organization Meetings: Patient declined Marital Status: Intimate Partner Violence: Unknown (08/29/2023) [place] Safety & Environment Fear of Current or Ex-Partner: Not on file Emotionally Abused: Not on file Physically Abused: Not on file Sexually Abused: Not on file Physically or Sexually Abused: Not on file Depression: Not at risk (07/30/2024) Received from [facility] PHQ-2 Patient Health Questionnaire-2 Score: 0 Housing Stability: Not on file Utilities: Not on file Health Literacy: Not on file Allergies: Allergies Allergen Reactions Celecoxib GI bleeding and Other Other Reaction(s): GI Bleeding Intestinal bleeding Penicillins Angioedema and Swelling Gabapentin GI intolerance and Nausea Only Other Reaction(s): Stomach Upset Shellfish Derived Diarrhea Weight: 82.6kg Visit Vitals BP 141/69 (BP Location: Left arm, Patient Position: Sitting) Pulse 52 Ht 1.626 m (5' 4 ) Wt 82.6 kg (182 lb) SpO2 98% BMI 31.24 kg/m??? Smoking Status Never BSA 1.93 m??? Meds: Current Outpatient Medications on File Prior to Visit Medication Sig Dispense Refill cholecalciferol (D3-5) 5,000 Units tablet Take 2 tablets by mouth in the morning. levothyroxine (Synthroid, Levoxyl) 150 mcg tablet Take 150 mcg by mouth before breakfast. metoprolol tartrate (Lopressor) 25 mg tablet Take 1 tablet (25 mg) by mouth two times daily. 60 tabl (more content not included)... [facility] 08-20-2024 History of Present illness Narrative Radiology Service Progress Note DATE OF SERVICE: August 20, 2024 TIME: 10:16 AM PATIENT WEIGHT: 183LBS PATIENT IDENTITY VERIFICATION COMPLETED USING TWO (2) STANDARD IDENTIFIERS: Name and Date of confirmed by patient verbally. FALL SCREENING: Has the patient had 2 falls in the last year or 1 fall with injury or currently using an Ambulatory Assistive Device (Walker, Cane, Wheelchair, Crutches, etc.)? No PATIENT GENDER DATA: Assigned female at . status: : No status: NO. ALLERGIES: Reviewed and unchanged CONTRAST ALLERGY: No EXAM: MRI - CONTRAST TYPE: GROUP II IV SITE: Ambulatory: A peripheral IV was started in the Left with a Angio cath: 20 gauge. IV SITE APPEARANCE: Clean,Dry and Intact SIGNATURE: Karlene Washburn RN PATIENT NAME: Chester Negro DATE: August 20, 2024 TIME: 10:16 AM 1in peripheral started on first attempt. Excellent brisk blood return. Flushed with 10ml. 0.9 Na Chloride. Patient screened negative for MRI incompatibilities. Radiology Service Progress Note PATIENT NAME: Chester Negro DATE OF SERVICE: August 20, 2024 TIME: 11:29 AM PATIENT IDENTITY VERIFICATION COMPLETED USING TWO (2) IDENTIFIERS: Name and Date of confirmed by patient verbally. FALL SCREENING: Has the patient had 2 falls in the last year or 1 fall with injury or currently using an Ambulatory Assistive Device (Walker, Cane, Wheelchair, Crutches, etc.)? No PATIENT GENDER DATA: Assigned female at . status: : No status: NO. PATIENT RELEVANT IMPLANT DATA REVIEWED: Yes PATIENT PRESENTS WITH AN IMPLANTABLE OR ATTACHED SCRIPT WORKER: No RADIOLOGY DEPARTMENT: MR; Exam(s) Completed: Cardiac: Cardiac PERIPHERAL IV DATA: Site assessment: Clean,Dry and Intact, Site disposition Discontinued pt sts no allergy to contrast SIGNED BY: RT Amy(R) August 20, 2024 11:29 AM documented in this encounter [facility] 08-20-2024 Note HNO ID: [id number] Author: KARLENE WASHBURN RN Service: Radiology Author Type: Registered Nurse Type: Progress Notes Filed: 08/20/2024 10:18 Note Text: Radiology Service Progress Note DATE OF SERVICE: August 20, 2024 TIME: 10:16 AM PATIENT WEIGHT: 183LBS PATIENT IDENTITY VERIFICATION COMPLETED USING TWO (2) STANDARD IDENTIFIERS: Name and Date of confirmed by patient verbally. FALL SCREENING: Has the patient had 2 falls in the last year or 1 fall with injury or currently using an Ambulatory Assistive Device (Walker, Cane, Wheelchair, Crutches, etc.)? No PATIENT GENDER DATA: Assigned female at . status: : No status: NO. ALLERGIES: Reviewed and unchanged CONTRAST ALLERGY: No EXAM: MRI - CONTRAST TYPE: GROUP II IV SITE: Ambulatory: A peripheral IV was started in the Left with a Angio cath: 20 gauge. IV SITE APPEARANCE: Clean,Dry and Intact SIGNATURE: Karlene Washburn RN PATIENT NAME: Chester Negro DATE: August 20, 2024 TIME: 10:16 AM 1in peripheral started on first attempt. Excellent brisk blood return. Flushed with 10ml. 0.9 Na Chloride. Patient screened negative for MRI incompatibilities. [facility] 08-20-2024 Note HNO ID: [id number] Author: DENICE FOURNIER RT(R) Service: Radiology Author Type: [employer] Type: Progress Notes Filed: 08/20/2024 11:30 Note Text: Radiology Service Progress Note PATIENT NAME: Chester Negro DATE OF SERVICE: August 20, 2024 TIME: 11:29 AM PATIENT IDENTITY VERIFICATION COMPLETED USING TWO (2) IDENTIFIERS: Name and Date of confirmed by patient verbally. FALL SCREENING: Has the patient had 2 falls in the last year or 1 fall with injury or currently using an Ambulatory Assistive Device (Walker, Cane, Wheelchair, Crutches, etc.)? No PATIENT GENDER DATA: Assigned female at . status: : No status: NO. PATIENT RELEVANT IMPLANT DATA REVIEWED: Yes PATIENT PRESENTS WITH AN IMPLANTABLE OR ATTACHED SCRIPT WORKER: No RADIOLOGY DEPARTMENT: MR; Exam(s) Completed: Cardiac: Cardiac PERIPHERAL IV DATA: Site assessment: Clean,Dry and Intact, Site disposition Discontinued pt sts no allergy to contrast SIGNED BY: RT Amy(R) August 20, 2024 11:29 AM [facility] 08-04-2024 Note [place] [facility] [facility] Reason for visit: Palpitations/shortness of breath HPI: Chester Negro is a 63 y.o. year old with past medical history of hypothyroidism, history of eosinophilic esophagitis, diastolic dysfunction has been experiencing palpitation for some time she had been seen by Dr. VERA in the past and had been evaluated at [facility] also. She had initially battled COVID infection in 2018 and since that time her blood pressure has been low and so her beta-chinyere (metoprolol) was stopped in July 2023 she started noticing increasing palpitations. And they feel like this occurs on a fairly routine basis which makes her lightheaded and markedly symptomatic. There is no alejandra syncope that is occurred. She feels markedly short of breath when this happens. Today in the clinic she states that she feels approximately 5 out of 10 and during the time I examined her pulse she was noted to be in regular normal sinus rhythm. Thereafter I made her walk, and this caused her to have marked shortness of breath despite the pulse showing sinus tachycardia. She had stress test and echo back in May 2024. Farxiga was stopped by Dr. Figueroa due to pain in her kidneys. She says she also stopped taking spironolactone at that time. Still having intermittent chest pain, SOB, palpitations, and lightheadedness. She is short of breath with minimal activity including washing the dishes, moving around the house or performing other physical activities Denies chest pain PMH: Past Medical History: Diagnosis Date Abnormal ECG PSH: Past Surgical History: Procedure Laterality Date FINGER SURGERY SH: Social Determinants of Health Tobacco Use: Low Risk (07/30/2024) Received from [employer] Patient History Smoking Tobacco Use: Never Smokeless Tobacco Use: Never Passive Exposure: Not on file Alcohol Use: Not At Risk (04/05/2021) Received from [employer] [facility] [employer] Frequency of Alcohol Consumption: Never Average Number of Drinks: Not on file Frequency of Binge Drinking: Never Financial Resource Strain: Low Risk (04/05/2021) Received from [employer] [facility] [employer] [facility] Overall Financial Resource Strain (CARDIA) Difficulty of Paying Living Expenses: Not hard at all Food Insecurity: Not on file Transportation Needs: No Transportation Needs (04/05/2021) [facility] [employer] [facility] Lack of Transportation (Medical): No Lack of Transportation (Non-Medical): No Physical Activity: Unknown (12/19/2022) Received from [employer] [facility] Exercise Vital Sign Days of Exercise per Week: 6 days Minutes of Exercise per Session: Not on file Stress: No Stress Concern Present (04/05/2021) [facility] [employer] [facility] [place] [facility] [employer] [facility] - Occupational Stress Questionnaire Feeling of Stress : Not at all Social Connections: Unknown (12/19/2022) Received from [employer] [facility] Social Connection and Isolation Panel [NHANES] Frequency of Communication with Friends and Family: Not on file Frequency of Social Gatherings with Friends and Family: Not on file Attends Scientologist Services: Not on file Active Member of Clubs or Organizations: Patient declined Attends Club or Organization Meetings: Patient declined Marital Status: Intimate Partner Violence: Unknown (08/29/2023) [place] Safety & Environment Fear of Current or Ex-Partner: Not on file Emotionally Abused: Not on file Physically Abused: Not on file Sexually Abused: Not on file Physically or Sexually Abused: Not on file Depression: Not at risk (07/30/2024) Received from [facility] PHQ-2 Patient Health Questionnaire-2 Score: 0 Housing Stability: Not on file Utilities: Not on file Health Literacy: Not on file Allergies: Allergies Allergen Reactions Celecoxib GI bleeding and Other Other Reaction(s): GI Bleeding Intestinal bleeding Penicillins Angioedema and Swelling Gabapentin GI intolerance and Nausea Only Other Reaction(s): Stomach Upset Shellfish Derived Diarrhea Weight: 83kg Visit Vitals BP 146/69 (BP Location: Left arm, Patient Position: Sitting) Pulse 57 Ht 1.626 m (5' 4 ) Wt 83 kg (183 lb) SpO2 97% BMI 31.41 kg/m??? Smoking Status Never BSA 1.94 m??? Meds: Current Outpatient Medications on File Prior to Visit Medication Sig Dispense Refill cholecalciferol (D3-5) 5,000 Units tablet Take 2 tablets by mouth in the morning. levothyroxine (Synthroid, Levoxyl) 150 mcg tablet Take 150 mcg by mouth before breakfast. metoprolol tartrate (Lopressor) 25 mg tablet Take 1 tablet (25 mg) by mouth two times daily. 60 tablet 11 dapagliflozin propanediol (Farxiga) 10 mg Take 1 tablet (10 mg) by mouth in the morning. 90 tablet 3 dapagliflozin propaned (more content not included)... [facility] 07-30-2024 History of Present illness Narrative Images from the original note were not included. HPI Med Refill Additional comments: Baclofen, Levothyroxine Last edited by Anuja Meade LPN on 07/30/2024 3:05 PM. Subjective Patient ID: Chester Negro is a 63 y.o. female who presents for back pain. Chester is present today for evaluation of back pain. Admits back pain for years but over the past 2 weeks has gotten worse and it is in her mid back (shoulder blades to mid back). She has been shoveling snow and thinks that could have aggravated it. She is interested in an xray. She has been taking tylenol arthritis, heating pad. Feels like sometimes when she is moving she locks up. Happens with her knees, ankles, her right bid toe, at times and now her back. Current Outpatient Medications on File Prior to Visit Medication Sig Dispense Refill metoprolol tartrate (Lopressor) 25 MG tablet Take 25 mg by mouth in the morning and 25 mg before bedtime. acetaminophen (Tylenol 8 Hour) 650 MG ER tablet Take 2 tablets by mouth every 8 (eight) hours if needed for mild pain Do not crush, chew, or split. Aloe Vera 25 MG capsule Take 1 tablet by mouth 1 (one) time each day Biotin w/ Vitamins C & E (HAIR SKIN & NAILS GUMMIES PO) Take 1 tablet by mouth in the morning. cholecalciferol (D3-5) 5,000 Units tablet Take 1 tablet by mouth in the morning. ELDERBERRY PO Take 1 tablet by mouth in the morning. loratadine (Claritin) 10 MG tablet Take 10 mg by mouth Daily as needed for allergies [DISCONTINUED] baclofen (Lioresal) 10 MG tablet Take 1 tablet (10 mg) by mouth as needed at bedtime for muscle spasms. 30 tablet 2 [DISCONTINUED] BD Disp Needle 23G X 1 misc inject IM Once a month 90 days [DISCONTINUED] cyanocobalamin (Vitamin B-12) 1000 MCG/ML injection Inject 1,000 mcg into the shoulder, thigh, or buttocks every 30 (thirty) days. [DISCONTINUED] levothyroxine (Synthroid, Levoxyl) 150 MCG tablet Take 1 tablet (150 mcg) by mouth in the morning. Take on an empty stomach.. 30 tablet 0 No current facility-administered medications on file prior to visit. I have reviewed and reconciled the history and medication list with the patient today. Allergies Allergen Reactions Celecoxib Other Reaction(s): GI Bleeding Gabapentin Other Reaction(s): Stomach Upset Meloxicam Other Other Reaction(s): Stomach Ulcer Penicillins Swelling Shellfish-Derived Products Diarrhea, GI intolerance and Other Social History Tobacco Use Smoking status: Never Smokeless tobacco: Never Vaping Use Vaping status: Never Used Substance Use Topics Alcohol use: Not Currently [...] arthroplasty and tendo transfer Visit Vitals BP 112/82 Pulse 62 Resp 16 Ht 5' 4 Wt 183 lb 3.2 oz SpO2 97% BMI 31.45 kg/m Smoking Status Never BSA 1.94 m Review of Systems Constitutional: Negative for chills, fatigue and fever. Respiratory: Negative for cough, shortness of breath and wheezing. Cardiovascular: Negative for chest pain, palpitations and leg swelling. Gastrointestinal: Negative for abdominal pain, constipation, diarrhea, nausea and vomiting. Musculoskeletal: Positive for back pain. Skin: Negative for rash. Objective Physical Exam Constitutional: General: She is not in acute distress. Appearance: Normal appearance. She is well-developed. HENT: Head: Normocephalic and atraumatic. Eyes: General: No scleral icterus. Conjunctiva/sclera: Conjunctivae normal. Cardiovascular: Rate and Rhythm: Normal rate and regular rhythm. Heart sounds: Normal heart sounds. No murmur heard. Pulmonary: Effort: Pulmonary effort is normal. No respiratory distress. Breath sounds: Normal breath sounds. No wheezing, rhonchi or rales. Musculoskeletal: Thoracic back: Tenderness and bony tenderness present. Back: Skin: General: Skin is warm and dry. Neurological: General: No focal deficit present. Mental Status: She is alert and oriented to person, place, and time. Psychiatric: Mood and Affect: Mood normal. Behavior: Behavior normal. Assessment/Plan Diagnoses and all orders for this visit: 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 or radiculopathy - XR thoracic spine complete 4+ views; Future - triamcinolone acetonide (Kenalog-40) injection 40 mg No able to tolerate NSAIDs. Provided her with Kenalog 40 mg IM, she tolerated this well. She has had this in the past and perceived significant benefit. Thoracic spine pain - XR thoracic spine complete 4+ views; Future Will obtain x-rays to r/o compression fracture or other acute abnormality. Will notify pt of results once received. Encouraged gentle heat, gentle stretching. If no improvement over the next week, she can contact office and a referral to PT can be placed. Wanda's disease (CMS/HCC) - levothyroxine (Synthroid, Levoxyl) 150 MCG tablet; Take 1 tablet (150 mcg) by mouth in the morning. Take on an empty stomach.. Refill provided on the above. Will continue to monitor with routine labs. Spondylosis of lumbosacral 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thy - baclofen (Lioresal) 10 MG tablet; Take 1 tablet (10 mg) by mouth as needed at bedtime for muscle spasms Baclofen as needed for muscle spasms. They do make her drowsy, so she will continue to take them at bedtime. Follow up if symptoms worsen or fail to improve. documented in this encounter [facility] 06-24-2024 Note [facility] Cardiology Clinic Note Chief Complaint: Patient here for follow up echo and stress test. She was started on metoprolol at last visit and thinks it's helping to lessen the palpitations. She can tell when the next dose is due. HPI: Chester Negro is a 63 y.o. female With a longstanding history of palpitations. She was seen years ago by plant packer in [place]. She underwent a number of tests. She [...] denies illicit drugs. 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 Family history: Heart heart father of a heart attack in his late 60s. Her mother has a history of arrhythmias and sees Dr. Mcarthur UPDATE 06/24/2024 Definitely noticed an improvement in her palpitations; no significant lightheadedness, dizziness or syncope She is short of breath with minimal activity including washing the dishes, moving around the house or performing other physical activities Denies chest pain Cardiology ROS: Review of Systems Cardiovascular: Positive for irregular heartbeat and palpitations. Respiratory: Positive for shortness of breath. Neurological: Positive for light-headedness. All other systems reviewed and are negative. Past Medical History She has a past medical history of Abnormal ECG. Surgical History She has a past surgical history that includes Finger surgery. Social History She reports that she has never smoked. She has never used smokeless tobacco. She reports that she does not currently use alcohol. No history on file for drug use. Family History Family History Problem Relation Name Age of Onset Supraventricular tachycardia Mother Allergies Celecoxib, Penicillins, Gabapentin, and Shellfish derived Medications Current Outpatient Medications: cholecalciferol (D3-5) 5,000 Units tablet, Take 2 tablets by mouth in the morning., Disp: , Rfl: levothyroxine (Synthroid, Levoxyl) 150 mcg tablet, Take 150 mcg by mouth before breakfast., Disp: , Rfl: metoprolol tartrate (Lopressor) 25 mg tablet, Take 1 tablet (25 mg) by mouth two times daily., Disp: 60 tablet, Rfl: 11 Last Recorded Vitals There were no vitals taken for this visit. Physical Examination: GENERAL: alert and oriented x3, [...] regurgitation or stenosis. Nuc stress Lexiscan Order: [id number] Narrative Chest pain radiating to jaw for [...] * EKG interpreted separately. Finalized by Albaro Osei, (more content not included)... [facility] 05-20-2024 Note [facility] Note Chief Complaint: New patient here to establish care. She wore 2 week Holter monitor last month for palpitations, SOB, and lightheadedness. She denies chest pain. HPI: Chester Negro is a 63 y.o. female With a longstanding history of palpitations. She was seen years ago by plant packer in [place]. She underwent a number of tests. She [...] denies illicit drugs. 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 Family history: Heart heart father of a heart attack in his late 60s. Her mother has a history of arrhythmias and sees Dr. Mcarthur Cardiology ROS: Review of Systems Cardiovascular: Positive [...] regurgitation or stenosis. Nuc stress Lexiscan Order: [id number] Narrative Chest pain radiating to jaw for [...] 13:14 Last Resulted: 05/22/19 13:54 Received From: [employer] [facility] Chest W IV Contrast Order: [id number] Narrative Clinical indication Coughing, shortness of breath, [...] concerning for a (more content not included)... [facility] 03-31-2024 History of Present illness Narrative Images from the original note were not included. HPI referral to endocrinology Additional comments: She is still looking into this. She is going to check out one in [place]. Last edited by Anuja Meade LPN on 03/31/2024 10:45 AM. Subjective Patient ID: Chester Negro is a 63 y.o. female who presents for cough. Chester is present today for evaluation of SOB. Started last week. States it is just a weird feeling in her chest, like a gurgling sensation, gets SOB when she bends over and walks her dogs, palpitations off/on and makes her throat feel tight when she gets them. Last time she had this was in July and she was diagnosed with bronchitis and was rx'd a z-lesley and benzonatate and that cleared up her symptoms. She has not been taking anything OTC. has a history of palpitations and was on a medication for it in the past, but when she had Covid, her BP was low and so she was taken off of that medication. Current Outpatient Medications on File Prior to [...] 1 tablet by mouth in the morning. levothyroxine (Synthroid, Levoxyl) 125 MCG tablet Take 1 tablet (125 mcg) by mouth in the morning. Take on an empty stomach.. loratadine (Claritin) 10 MG tablet Take 10 mg by mouth Daily as needed for allergies No current facility-administered medications on file prior to visit. I have reviewed and reconciled the history and medication list with the patient today. Allergies Allergen Reactions Celecoxib Other Reaction(s): GI Bleeding Gabapentin Other Reaction(s): Stomach Upset Meloxicam Other Other Reaction(s): Stomach Ulcer Penicillins Swelling Shellfish-Derived Products Diarrhea, GI intolerance and Other Social History Tobacco Use Smoking status: Never Smokeless tobacco: Never Vaping Use Vaping status: Never Used Substance Use Topics Alcohol use: Not Currently [...] arthroplasty and tendo transfer Visit Vitals BP 129/78 Pulse 76 Temp 98.1 F Resp 16 Ht 5' 4 Wt 182 lb 6.4 oz SpO2 98% BMI 31.31 kg/m Smoking Status Never BSA 1.93 m Orthostatic BP's Sittin/84 Standin/94 Layin/80 Review of Systems Constitutional: Negative for chills, fatigue and fever. Respiratory: Positive for shortness of breath. Negative for cough and wheezing. Cardiovascular: Positive for palpitations. Negative for chest pain and leg swelling. Gastrointestinal: Negative for abdominal pain, constipation, diarrhea, nausea and vomiting. Skin: Negative for rash. Objective Physical Exam Constitutional: General: She is not in acute distress. Appearance: Normal appearance. She is well-developed. HENT: Head: Normocephalic and atraumatic. Eyes: General: No scleral icterus. Conjunctiva/sclera: Conjunctivae normal. Cardiovascular: Rate and Rhythm: Normal rate and regular rhythm. Heart sounds: Normal heart sounds. No murmur heard. Pulmonary: Effort: Pulmonary effort is normal. No respiratory distress. Breath sounds: No wheezing, rhonchi or rales. Comments: Mildly harsh to auscultation Skin: General: Skin is warm and dry. Neurological: General: No focal deficit present. Mental Status: She is alert and oriented to person, place, and time. Psychiatric: Mood and Affect: Mood normal. Behavior: Behavior normal. Assessment/Plan Diagnoses and all orders for this visit: Palpitation - Holter monitor; Future Will obtain a Holter Monitor for further evaluation of pt's symptoms. May need to restart pt on a beta-chinyere based on the results. Orthostatics reviewed with pt. Encouraged pt to continue to stay hydrated. Encouraged electrolyte solution once a day. Shortness of breath - Holter monitor; Future Lung sounds minimally abnormal today, no rhonchi noted. No cough. Will hold off on any antibiotics at this time. She can let me know if this worsens. Acquired hypothyroidism (CMS/HCC) She will have thyroid labs drawn today. Will r/o as a contributing factor to her palpitations. Follow up if symptoms worsen or fail to improve. documented in this encounter [facility] 08-15-2023 History of Present illness Narrative Subjective Patient ID: Chester Negro is a 62 y.o. female who presents for Wellness. Subjective Chester Negro is a 62 y.o. female and is here for a comprehensive physical exam. The patient would like to discuss her Levothyroxine. States Dr. Zhao had her on MACHINE OPERATOR HELPER thyroid at one time and she felt [...] pneumonia Diverticulosis Eosinophilic esophagitis Kidney stone Menorrhagia 2015 enometrial wall thickineing Pneumonia due to COVID-19 [...] Hiatal hernia The patient is seeing a chief medical technologist for this condition, treatment is deferred to that specialist. Correspondence from that specialist and any available testing were reviewed during today's visit. Palpitation This is a chronic medical condition that is stable since last assessment. No changes in treatment are suggested at this time. Polyp of colon, unspecified part of colon, unspecified type The patient is seeing a chief medical technologist for this condition, treatment is deferred to that specialist. Correspondence from that specialist and any available testing were reviewed during today's visit. Diverticulosis of colon The patient is seeing a chief medical technologist for this condition, treatment is deferred to that specialist. Correspondence from that specialist and any available testing were reviewed during today's visit. Eosinophilic esophagitis The patient is seeing a chief medical technologist for this condition, treatment is deferred to that specialist. Correspondence from that specialist and any available testing were reviewed during today's visit. Gastric mass The patient is seeing a chief medical technologist for this condition, treatment is deferred to that specialist. Correspondence from that specialist and any available testing were reviewed during today's visit. History of gastric ulcer The patient is seeing a chief medical technologist for this condition, treatment is deferred to that specialist. Correspondence from that specialist and any available testing were reviewed during today's visit. Irritable bowel syndrome with diarrhea The patient is seeing a chief medical technologist for this condition, treatment is deferred to that specialist. Correspondence from that specialist and any available testing were reviewed during today's visit. Schatzki's ring of distal esophagus The patient is seeing a chief medical technologist for this condition, treatment is deferred to that specialist. Correspondence from that specialist and any available testing were reviewed during today's visit. Birmingham-Walker grade 3 cystocele The patient is seeing a chief medical technologist for this condition, treatment is deferred to that specialist. Correspondence from that specialist and any available testing were reviewed during today's visit. Cystocele, midline The patient is seeing a chief medical technologist for this condition, treatment is deferred to that specialist. Correspondence from that specialist and any available testing were reviewed during today's visit. Enlarged uterus The patient is seeing a chief medical technologist for this condition, treatment is deferred to that specialist. Correspondence from that specialist and any available testing were reviewed during today's visit. Fibroids, submucosal The patient is seeing a chief medical technologist for this condition, treatment is deferred to [...] free; Future - TSH; Future - thyroid (MACHINE OPERATOR HELPER Thyroid) 60 MG tablet; Take 1 tablet (60 mg) by mouth in the morning. - T3, free; Future - T4, free; Future - TSH; Future Will get updated baseline thyroid testing, the repeat in 6-8 weeks. She will restart the MACHINE OPERATOR HELPER Thyroid and discontinue the Levothyroxine. Advise pt that if we cannot obtain stable labs regarding her thyroid I would recommend a referral to [facility] for further evaluation. She is in agreement with the above. ESS (euthyroid sick syndrome) - T3, free; Future - T4, free; Future - TSH; Future - thyroid (MACHINE OPERATOR HELPER Thyroid) 60 MG tablet; Take 1 tablet (60 mg) by mouth in the morning. - T3, free; Future - T4, free; Future - TSH; Future See above. Wanda's disease (CMS/HCC) - T3, free; Future - T4, free; Future - TSH; Future - T3, free; Future - T4, free; Future - TSH; Future See above. Left ovarian cyst The patient is seeing a chief medical technologist for this condition, treatment is deferred to [...] breast cancer The patient is seeing a chief medical technologist for this condition, treatment is deferred to that specialist. Correspondence from that specialist and any available testing were reviewed during today's visit. H/O tubal ligation The patient is seeing a chief medical technologist for this condition, treatment is deferred to [...] endometrial ablation The patient is seeing a chief medical technologist for this condition, treatment is deferred to [...] Tubular adenoma The patient is seeing a chief medical technologist for this condition, treatment is deferred to that specialist. Correspondence from that specialist and any available testing were reviewed during today's visit. Vision abnormalities The patient is seeing a chief medical technologist for this condition, treatment is deferred to that specialist. Correspondence from that specialist and any available testing were reviewed during today's visit. Follow up in about 6 months (around 02/13/2024) for Medication Follow Up. documented in this encounter [facility] 02-02-2022 History of Present illness Narrative Images from the original note were not included. Gynecology Rounds POD# 1 Procedure: Anterior Colporrhaphy Date: 02/02/2022 Time: 10:00 AM Patient Name: Chester Negro Patient : 1960 Room/Bed: [address] [place] [address] Admission Date/Time: 02/01/2022 6:02 AM [facility] #: [id number] Attending Physician Statement I have discussed the [...] Ketones, Urine 02/01/2022 NEGATIVE NEGATIVE Final Specific [place], UA 02/01/2022 1.008 1.000 - 1.030 Final [...] QD - Currently asymptomatic Hypothyroidism - Continue Eaton Thyroid 60mg BID Hx gastric ulcer - Will avoid PO NSAIDs Please [facility] Dr. Rehana Hernandez from [phone] with any questions David Kimball DO [employer] Machine Operator Resident 02/02/2022, 7:13 AM Gynecology Progress Note [...] NEGATIVE NEGATIVE Ketones, Urine NEGATIVE NEGATIVE Specific [place], UA 1.008 1.000 - 1.030 Urine Hgb [...] QD - Currently asymptomatic Hypothyroidism - Continue Eaton Thyroid 60mg BID Hx gastric ulcer - Will avoid PO NSAIDs Please [employer] Dr. Isabel Omer from [phone] with any questions [address] Dr[address] Ksenia Herman from [phone] Margarito Saldivar MD [employer] Machine Operator Resident Pager: [phone] 02/01/2022, 12:41 PM Resident Physician Statement I have personally seen the patient. I agree with the assessment, plan and orders as documented by horacio resident. I have made changes to the above note as needed. I have discussed the case with above named attending. Isabel Omer DO MEMBERSHIP SALES MANAGER PGY-3 02/01/2022 12:46 PM documented in this encounter [facility] [employer] Phone: 02-01-2022 Hospital Discharge instructions Ino Brothers DO - 02/01/2022 7:26 AM EDT Images from the original note were not included. Patient Name: Chester Negro Date: 02/01/2022 Time: 7:24 AM [facility] Obstetrics & Gynecology Outpatient Surgery After [...] post operative expectations: A low grade fever Titus coloration of skin from soap Sore scratchy [...] with food Take Pain medication with food [facility] Obstetric[facility] Gynecology Activity: Restrict your [...] all persons verbalize understanding of the instructions. [facility] Obstetrics & Gynecology [address] [place] [address] Discharge Instructions for Cystocele and Rectocele Repair [...] taking more than one drug. This includes vlhp-cvk-ckibofk medication and herb or dietary supplements. Plan [...] call 911 immediately. documented in this encounter [employer] Phone: 01-22-2022 History of Present illness Narrative Patient went to radiology for chest x-ray. Dr Brothers's office has already obtained endocrine clearance and this is included in surgery chart. documented in this encounter [employer] Phone: 01-22-2022 Hospital Discharge instructions hSahla Rapp RN - 01/22/2022 12:00 PM EDT [...] surgery with a sip of water: metoprolol, MACHINE OPERATOR HELPER thyroid Surgery Instructions: After midnight before surgery: [...] powder, deodorant, jewelry, piercings, perfume, makeup, nail belarusian, hair accessories, or hair spray on the day of surgery. Wear loose comfortable clothing. Leave your valuables at home. Bring a storage case for any glasses/contacts. The Day of Surgery: Arrive at [facility] Surgery Entrance at the time directed by your surgeon and check in at the desk. If you have a living will or healthcare power of plastics technician, please bring a copy. You will be taken to the pre-op holding area where you will be prepared for surgery. A physical assessment will be performed by a nurse practitioner or general warehouse worker. Your IV will be started and you [...] room. . documented in this encounter [employer] Phone: 09-29-2021 History of Present illness Narrative It is to be noted that I can not sign the H&P for reason that I'm not assigned as a co signer. The nurse is aware and OKyed to start the Procedure SO ADMINISTRATION PLEASE DON'T SEND ME A LETTER. THANK YOU! documented in this encounter [employer] Phone: 09-25-2021 Reason for visit Narrative Specialty Diagnoses / Procedures Referred By Contke t Referred To Contact Diagnoses History of colon polyps GERD (gastroesophageal reflux disease) HISTORY OF COLON POLYPS / GERD COVID 09/25 Procedures TN ESOPHAGOGASTRODUODENOSCOPY TRANSORAL DIAGNOSTIC TN COLONOSCOPY FLX DX W/COLLJ SPEC WHEN PFRMD EGD COLONOSCOPY DIAGNOSTIC Constantine Sanchez MD [address], [address] [place] [address] [employer] [address] [place] [address] Referral ID Status Reason Start Date Expiration Date Visits Re quested Visits Authorized [id number] 1 [employer] Phone: [phone]) [phone] History of Present illness Narrative* Su Tolbert [...] lotion, powder, jewelry, piercings, perfume, makeup, nail belarusian, hair accessories, or hair spray on the day of surgery. Wear loose comfortable clothing. 4. Leave your valuables at home. Bring a storage case for any glasses/contacts. 5. An adult who is responsible for you MUST drive you home and should be with you for the first 24 hours after surgery. The Day of Surgery: Arrive at [facility] Surgery Entrance at the time directed by your surgeon and check in at the desk. If you have a living will or healthcare power of plastics technician, please bring a copy. You will be taken to the pre-op holding area where you will be prepared for surgery. A physical assessment will be performed by a nurse practitioner or general warehouse worker. Your IV will be started and you [...] Sharad and understanding verbalized. documented in this [facility] Phone: evaluation note* Diagnosis Visit for screening mammogram Other screening mammogram documented in this encounter [employer] Phone: evaluation note* Diagnosis Pre-op testing- Primary Preoperative examination, unspecified documented in this encounter [employer] Phone: evaluation note* Diagnosis Gastroesophageal reflux disease Esophageal reflux Screening for colorectal cancer Special screening for malignant neoplasms, colon documented in this encounter [employer] Phone: evaluation note* Diagnosis Overflow incontinence documented in this encounter [employer] Phone: evaluation note* Diagnosis Encounter for screening mammogram for malignant neoplasm of breast Other screening mammogram documented in this encounter [employer] Phone: evaluation note* Diagnosis Pre-op testing Preoperative examination, unspecified Cystocele, unspecified (CODE) documented in this encounter [employer] Phone: evaluation note* Diagnosis S/P anterior colporrhaphy- Primary Cystocele, unspecified (CODE) Birmingham-Walker grade 3 cystocele Overflow incontinence Cystocele REPAIR 02/01/2022 Cystocele, midline Other specified hypothyroidism History of gastric ulcer Personal history of other diseases of digestive system Heart palpitations Palpitations documented in this encounter [employer] Phone: evaluation note* Diagnosis Post-menopausal Asymptomatic postmenopausal status (age-related) (natural) documented in this encounter [employer] Phone: evaluation note* Diagnosis Wellness examination- Primary [...] bowel syndrome Schatzki's ring of distal esophagus Birmingham-Walker grade 3 cystocele Cystocele, midline Enlarged uterus [...] Unspecified visual loss documented in this encounter [facility]* Diagnosis Encounter for screening mammogram for malignant neoplasm of breast Other screening mammogram documented [facility]* Diagnosis Palpitation- Primary Palpitations Shortness of breath Acquired hypothyroidism (CMS/HCC) Unspecified hypothyroidism documented in this encounter [facility] Healthcare[facility] note* Diagnosis 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 Thoracic spine pain Pain in thoracic spine 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 documented in this encounter [facility] note* Diagnosis Abnormal finding on imaging of liver- Primary Hepatic lesion Hypokalemia Hypopotassemia Vitamin D deficiency Vitamin B-complex deficiency Unspecified vitamin B deficiency Acquired hypothyroidism (CMS/HCC) Unspecified hypothyroidism Elevated LDL cholesterol level (CMS/HCC) PSVT (paroxysmal supraventricular tachycardia) (CMS/HCC) Paroxysmal supraventricular tachycardia Tubular adenoma Benign neoplasm of unspecified site documented in this encounter [facility] Healthcare[facility] note* Diagnosis Acquired hypothyroidism- Primary Unspecified hypothyroidism [facility]* Instructions* Orestes Martell RN - [...] Where can you learn more? Go to [email or web address] and sign in to your [employer] account. Enter E264 in the Search Health Information box to learn more about Colonoscopy: What to Expect at Home. If you do not have an account, please click on the Sign Up Now link. [employer]. Care instructions adapted under license by [employer]. This care instruction is for use with your licensed healthcare professional. If you have questions about a medical condition or this instruction, always ask your healthcare professional. [employer] disclaims any warranty or liability for your use of this information. Content Version: 9.9.097329; Last Revised: August 27, 2012 PATIENT INSTRUCTIONS [...] of fluids when exercising. MEDICATIONS: Take an tfnx-nvb-cxlcibb fiber supplement as noted above twice daily. [...] to call your physician or the hospital arbor press operator if you have any questions, and [...] vegetarian-based meals. Here are some ideas: black maldondao burgers, eggplant lasagna, and veggie tofu stir-sarkar. [...] Whole-grain breads, muffins, bagels, or dimitri bread [place] bread Whole-wheat crackers or crisp breads Whole-grain or bran cereals Oatmeal, oat bran, or grits Wheat germ Whole-wheat pasta and brown rice Read the ingredients list on food labels. Look for products that list whole as the first ingredient (eg, whole-wheat, whole oats). Choose cereals with at least 2 grams of fiber per serving. Vegetables All vegetables, especially asparagus, maldonado sprouts, broccoli, [place]ungie sprouts, cabbage, carrots, cauliflower, celery, corn, greens, [...] All nuts and seeds, especially almonds, peanuts, [place] nuts, cashews, peanut butter, walnuts, sesame and [...] or sigmoidoscopy . A Colon Polyp 2010 [employer]. Reasons for Procedure The purpose of the [...] relievers for discomfort. Post-procedure Care At the [facility] The polyps will be sent to [...] throat or neck pain documented in this encounter[facility] Phone: InstructionsNot on filedocumented in this encounter [facility] Narrative* Auth/Cert Specialty Diagnoses / Procedures Referred By Elma pepe Referred To Contact Diagnoses Cystocele, unspecified (CODE) PELVIC PRESSURE CYSTOCELE Procedures TN ANTERIOR COLPORRAPHY RPR CYSTOCELE W/CYSTO VAGINAL ANTERIOR REPAIR Ino Brothers DO [address], [address] [place] [address] [employer] [address] [place] [address] Referral ID Status Reason Start Date Expiration Date Visits Re quested Visits Authorized [id number] 1 1 [employer] Phone: reason for visit Narrative* MRI/CT (Routine) - Open Specialty Diagnoses / Procedures Referred By Elma pepe Referred To Contact [facility] Diagnoses Chronic diastolic (congestive) heart failure Eosinophilia, unspecified MRI Cardiac Morph function w/wo IVCON Diagnosis: Diastolic CHF, chronic 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 Summary Purpose Family History No Family History Records FoundNo Family History Records FoundNo Family History Records FoundNo Family History Records FoundNo Family History Records FoundNo Family History Records FoundNo Family History Records FoundNo Family History Records Found Advance Directives No Advanced Directives Records FoundDocuments on File Type Date Recorded Patient Seismic Computer Expl anation ACP-Advance Directive ACP-Power of Channel Development Manager Latest Code Status on File Code Status Date Activated Date Inactivated Comments Full Code 03/14/2016 8:36 AM 03/15/2016 12:04 AM Documents on File Type Date Recorded Patient Seismic Computer Expl anation ACP-Advance Directive ACP-Power of Channel Development Manager Latest Code Status on File Code Status Date Activated Date Inactivated Comments Full Code 03/14/2016 8:36 AM 03/15/2016 12:04 AM Documents on File Type Date Recorded Patient Seismic Computer Expl anation Advance Directives and Living Will Power of Channel Development Manager Latest Code Status on File Code Status [...] Comments 03/14/2016 8:36 AM 03/15/2016 12:04 AM Date Activated Date Inactivated Comments 04/05/2021 5:53 PM 04/10/2021 7:35 PM Date Activated Date Inactivated Comments 05/21/2019 6:44 PM 05/23/2019 7:59 PM Date Activated Date Inactivated Comments 11/30/2017 11:33 AM 12/03/2017 8:04 PM Date Activated Date Inactivated Comments 02/01/2022 6:09 AM 02/02/2022 12:51 PM Date Activated Date Inactivated Comments 03/14/2016 8:36 AM 03/15/2016 12:04 AM Reason for Referral Status Reason Specialty Diagnoses / Procedures Referre d By Contact Referred To Contact Closed Radiology Diagnoses Visit for screening mammogram Procedures JORGE FABIAN DIGITAL SCREEN SELF REFERRAL W OR WO CAD BILATERAL [employer], [place] [address] Specialty Diagnoses / Procedures Referred By Contac t Referred To Contact Radiology Diagnoses Encounter for screening mammogram for malignant neoplasm of breast Procedures JORGE FABIAN DIGITAL SCREEN BILATERAL JORGE DIGITAL SCREEN W OR WO CAD BILATERAL [employer], [place] [address] Referral ID Status Reason Start Date Expiration Date Visits Re quested Visits Authorized [id number] Closed 12/15/2021 12/15/2022 1 1 Specialty Diagnoses / Procedures Referred By Contac t Referred To Contact Cardiology Diagnoses Pre-op testing Procedures EKG 12 lead [facility], [place] [address] [facility], [address] [place] [address] Referral ID Status Reason Start Date Expiration Date Visits Re quested Visits Authorized [id number] Open 01/16/2022 01/16/2023 1 1 Specialty Diagnoses / Procedures Referred By Contac t Referred To Contact Radiology Diagnoses Post-menopausal Procedures DEXA BONE DENSITY AXIAL SKELETON [facility], DO [address] [facility], [address] [place] [address] Referral ID Status Reason Start Date Expiration Date V isits Requested Visits Authorized [id number] Pending Review 12/05/2021 12/05/2022 1 1 Specialty Diagnoses / Procedures Referred By Contac t Referred To Contact Radiology Diagnoses Palpitation Shortness of breath Procedures Holter monitor Candy Gee PA [address] [facility] [address] [place] [address] Referral ID Status Reason Start Date Expiration Date V isits Requested Visits Authorized [id number] Pending Review 03/31/2024 09/27/2024 1 1 Additional Source Comments INFORMATION SOURCE (unrecogn ized section and content) DATE CREATED AUTHOR 12/31/2017 [facility] DATE CREATED AUTHOR AUTHOR'S ORGANIZ ATION 12/01/2021 [facility] dical Specialist DATE CREATED AUTHOR AUTHOR'S ORGANIZ ATION 04/27/2024 [facility] DATE CREATED AUTHOR AUTHOR'S ORGANIZ ATION 08/22/2024 [facility] DATE CREATED AUTHOR AUTHOR'S ORGANIZ ATION 10/14/2024 [facility] DATE CREATED AUTHOR AUTHOR'S ORGANIZ ATION 10/15/2024 [facility] dical Specialists EPIC DATE CREATED AUTHOR AUTHOR'S ORGANIZ ATION 11/21/2024 [facility] DATE CREATED AUTHOR AUTHOR'S ORGANIZ ATION 12/06/2024 [facility] Reason for Visit (unrecogniz ed section and content) Status Reason Specialty Diagnoses / Procedures Referre d By Contact Referred To Contact Closed Radiology Diagnoses Visit for screening mammogram Procedures JORGE FABIAN DIGITAL SCREEN SELF REFERRAL W OR WO CAD BILATERAL [employer], DO [address] [place] [phone] Specialty Diagnoses / Procedures Referred By Harithaac t Referred To Contact Radiology Diagnoses Encounter for screening mammogram for malignant neoplasm of breast Procedures JORGE FABIAN DIGITAL SCREEN BILATERAL JORGE DIGITAL SCREEN W OR WO CAD BILATERAL [employer], DO [address] [place] [id number] Referral ID Status Reason Start Date Expiration Date Visits Re quested Visits Authorized [id number] Closed 12/15/2021 12/15/2022 1 1 Specialty Diagnoses / Procedures Referred By Harithaac t Referred To Contact Radiology Diagnoses Post-menopausal Procedures DEXA BONE DENSITY AXIAL SKELETON [employer], DO [address] [place] [phone] Referral ID Status Reason Start Date Expiration Date V isits Requested Visits Authorized [id number] Pending Review 12/05/2021 12/05/2022 1 1 Specialty Diagnoses / Procedures Referred By Contac t Referred To Contact Radiology Diagnoses Encounter for screening mammogram for malignant neoplasm of breast Procedures JORGE FABIAN DIGITAL SCREEN BILATERAL JORGE DIGITAL SCREEN W OR WO CAD BILATERAL Samantha Weaver APRN - GAS FURNACE INSTALLER [address] [place] [phone] Referral ID Status Reason Start Date Expiration Date Visits Re quested Visits Authorized [id number] Closed 04/12/2024 04/12/2025 1 1 Reason Comments referral to endocrinology She is still l ooking into this. She is going to check out one in [place]. 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 Care Teams (unrecognized sec tion and content) Window Shade Estimator Relationship Specialty Start Date End Date Candy Gee [address] [place] [address] PCP - General 11/25/15 Window Shade Estimator Relationship Specialty Start Date End Date Candy Gee [address] [place] [address] PCP - General 11/25/15 Window Shade Estimator Relationship Specialty Start Date End Date Candy Gee [address] [place] [address] PCP - General 11/25/15 Window Shade Estimator Relationship Specialty Start Date End Date Candy Gee [address] [place] [address] PCP - General 11/25/15 Window Shade Estimator Relationship Specialty Start Date End Date Candy Gee [address] [place] [address] PCP - General 11/25/15 Window Shade Estimator Relationship Specialty Start Date End Date Candy Gee [address] [place] [address] PCP - General 11/25/15 Window Shade Estimator Relationship Specialty Start Date End Date Candy Gee [address] [place] [address] PCP - General 11/25/15 Window Shade Estimator Relationship Specialty Start Date End Date Candy Gee [address] [place] [address] PCP - General 11/25/15 Window Shade Estimator Relationship Specialty Start Date End Date Candy Gee [address] [place] [address] PCP - General 11/25/15 Window Shade Estimator Relationship Specialty Start Date End Date Cali Zhao MD [address] [facility] [place] [address] PCP - [place] [facility] 10/06/20 Jose Cruz Young MD [address] [facility] [address] [place] [address] PCP - General Internal Medicine 11/23/22 Window Shade Estimator Relationship Specialty Start Date End Date Cali Zhao MD [address] [place] [address] PCP - [place] [facility] 10/06/20 Jose Cruz Young MD [address] [facility] [address] [place] [address] PCP - General Internal Medicine 11/23/22 Window Shade Estimator Relationship Specialty Start Date End Date Cali Zhao MD [address] [place] [address] PCP - [place] [facility] 10/06/20 Candy Gee PA [address] [facility] [address] [place] [address] PCP - General Family Medicine 08/15/23 Window Shade Estimator Relationship Specialty Start Date End Date Candy Gee PA-C PCP - General 11/25/15 Window Shade Estimator Relationship Specialty Start Date End Date Candy Gee PA [address] [place] [address] PCP - General Family Medicine 08/15/23 Window Shade Estimator Relationship Specialty Start Date End Date Candy Gee PA [address] [place] [address] PCP - General Family Medicine 08/15/23 Window Shade Estimator Relationship Specialty Start Date End Date Candy Gee PA [address] [facility] [address] [place] [address] PCP - General Family Medicine 08/15/23 Window Shade Estimator Relationship Specialty Start Date End Date Candy Gee PA [address] [facility] [address] [place] [address] PCP - General Family Medicine 08/15/23 Window Shade Estimator Relationship Specialty Start Date End Date Candy Gee PA [address] [facility] [address] [place] [address] PCP - [facility] Family Medicine 08/15/23 Window Shade Estimator Relationship Specialty Start Date End Date Candy Gee PA [address] [facility] [address] [place] [address] PCP - [facility] Medicine 08/15/23 Window Shade Estimator Relationship Specialty Start Date End Date Candy Gee PA PCP - General 11/30/17 Window Shade Estimator Relationship Specialty Start Date End Date Candy Gee PA-C PCP - General 11/25/15 Scheduled Active and [...] - Provider: Mark Zapata Jr., BORIS - PIPE FITTER MARINE)1031 (Paused - Provider: Mark Zapata Jr., APRN - PIPE FITTER MARINE - Comment: Switch to gravity)1032 (Restarted - Provider: Mark Zapata Jr., BORIS - PIPE FITTER MARINE) PRN Medication Order 09/27/2021 09/28/2021 09/29/2021 0.9 [...] at 200 mL/hr, Administer over 60 Minutes, CREATIVE ASSISTANT TO O.R., On Sat02/01/22 at 0630, For 1 dose, Administer within 1 hour prior to incision., Pre-op (day of surgery) 0803 (Given - Provider: Kam Polanco, BORIS - PIPE FITTER MARINE) clindamycin (CLEOCIN) 900 mg in dextrose 5 % 50 mL IVPB (COMPLETED) 900 mg, IntraVENous, EVERY 8 HOURS, 2 doses, First dose on Sat02/01/22 at 1600, Last dose on Sat02/02/22 at 0000, Antimicrobial Indications: Surgical Prophylaxis 1605 (New Bag - Provider: Audrey Smith RN)1706 (Stopped - Provider: Kaya Marroquin RN)2330 (New Bag - Provider: Tram Chery RN) 0030 (Stopped - Provider: Tram Chery RN)003 (Stopped - Provider: Tram Chery RN) docusate sodium (COLACE) capsule 100 mg 100 mg, Oral, 2 TIMES DAILY, First dose on Adalgisa 02/01/22 at 1030, Until Discontinued, Do not crush or break., Post-op 1105 (Given - Provider: Kaya Marroquin, RN)2129 (Given - Provider: Tram Chery RN) 08 (Given - Provider: Kaya Marroquin RN)2100 (Due) enoxaparin (LOVENOX) injection 40 mg 40 mg, SubCUTAneous, DAILY, First dose on Adalgisa 02/01/22 at 2100, Until Discontinued, Indication of Use: Prophylaxis-DVT/PE, Hold if Hgb <[address] Ksenia Herman via perfect serve, Post-op 2152 (Given - Provider: Tram Chery RN - Comment: awaiting for Rx approval) 2100 (Due - Provider: Yamileth Beltre [facility]) metoprolol tartrate (LOPRESSOR) tablet 25 mg 25 mg, Oral, DAILY, First dose on Sat02/02/22 at 0900, Until Discontinued 0704 (Given - Provid er: Kaya Marroquin RN) metronidazole (FLAGYL) 500 mg in 0.9% NaCl 100 mL IVPB premix (COMPLETED) 500 mg, IntraVENous, at 100 mL/hr, Administer over 60 Minutes, CREATIVE ASSISTANT TO O.R., On Sat02/01/22 at 0630, For 1 dose, Administer within 1 hour prior to incision., Pre-op (day of surgery) 0749 (Given - Provider: Kam Polanco, OB SCRUB TECH - PIPE FITTER MARINE) pantoprazole (PROTONIX) tablet 40 mg 40 mg, Oral, DAILY BEFORE BREAKFAST, First dose on Sat02/02/22 at 0700, Until Discontinued, Do not crush or break. Substituted for Omeprazole (PRILOSEC). 0658 (Given - Provid er: Tram Chery RN) sodium chloride flush 0.9 % injection 5-40 mL 5-40 mL, IntraVENous, EVERY 12 HOURS SCHEDULED (2 times per day), First dose on Sat02/01/22 at 1030, Until Discontinued, For Line Patency: [...] on Adalgisa 02/01/22 at 2100, Until Discontinued 2328 (Given - Provider: Tram Chery RN - Comment: meds not available) 0704 (Given - Provider: Kaya Marroquin RN)2100 (Due) Continuous Medication Order 01/31/2022 02/01/2022 02/02/2022 lactated ringers infusion (CANCELED) IntraVENous, at 125 mL/hr, CONTINUOUS, Starting on Adalgisa 02/01/22 at 0630, Pre-op (day of surgery) 0644 [...] Marroquin RN)2156 (Rate/Dose Change - Provider: Tram Chery RN)2156 (Rate/Dose Change - Provider: Tram Chery RN) 0156 (Stopped - Provider: Tram Chery RN)0157 (New Bag - Provider: Tram Chery RN)0607 (Rate/Dose Verify - Provider: Tram Chery RN)0837 (Stopped - Provider: Kaya Marroquin RN) PRN [...] hours., Post-op 1105 (Given - Provider: Kaya Marroquin RN)1920 (Given - Provider: Tram Chery RN) 0341 (Given - Provider: Tram Chery RN) Benzocaine-Menthol (CEPACOL SORE THROAT) 15-2.6 MG lozenge 1 lozenge 1 lozenge, Oral, EVERY 2 HOURS PRN, Starting on Adalgisa 02/01/22 at 2143, Until Discontinued, Sore Throat 2340 (Given - Provider: Tram Chery, RN) conjugated estrogens (PREMARIN) vaginal cream (CANCELED) PRN, Starting on Sat02/01/22 at 0845, Intra-op 0845 (Given - Provider: [...] IntraVENous, EVERY 6 HOURS PRN, Starting on Sat02/01/22 at 1239, Until Sat02/06/22 at 1238, Pain 1-10, Do not administer for more than 5 days. melatonin tablet 3 mg 3 mg, Oral, NIGHTLY PRN, Starting on Sat02/01/22 at 2100, Until Discontinued, Sleep, Post-op 2340 (Given - Provider: Tram Chery, ADRIENNE) ondansetron (ZOFRAN) injection 4 mg(Linked Group 1) 4 mg, IntraVENous, EVERY 6 HOURS PRN, Starting on Sat02/01/22 at 1003, Until Discontinued, Nausea, Vomiting, Administer [...] urine. 1445 (Given - Provider: Kaya Marroquin RN)8504 (Given - Provider: Tram Chery, RN) 0549 (Given - Provider: Tram Chery, RN) sodium chloride flush 0.9 % injection [...] for Pain 80 tablet 1 02/01/2022 03/03/2022 Source Comments (unrecognize d section and content) In the event this informatio n is protected by the Federal Confidentiality of Alcohol and Drug Abuse Patient Records regulations: The Federal rules restrict any use of the information to criminally investigate or prosecute any alcohol or drug abuse patient.[facility] FOR RECORDS PERTAINING TO PATIENTS WHO ARE [...] BE BASED ON THE PRIMARY CLINICAL RECORDS. [employer] [facility]. provides no warranty or guarantee of the accuracy or completeness of information in this document.
--- NOTE | 2024-12-09 07:10 | US_ITS ---
The [address] [address] Patient Name: CHESTER UGALDE MRN: [id number] date: 1960 Sex: F Assigned Patient Location: US Current Patient Location: US Accession/Order Number: [id number] Exam Date: 12/10/2024 15:01 Report Date: 12/10/2024 15:03 At the request of: ELIAS GEE Procedure: US right upper quadrant LIMITED ABDOMINAL ULTRASOUND WITH ASSESSMENT OF RIGHT UPPER QUADRANT HISTORY: Hepatic lesion identified with MRI examination. COMPARISON: None Negative ultrasound Del Castillo's sign reported. COMMON BILE DUCT: Normal caliber. No intraluminal abnormality. LIVER CONTOUR: Normal. LIVER PARENCHYMA: Normal echogenicity HEPATIC LESION: None INTRAHEPATIC BILIARY DUCTAL DILATATION No ductal dilatation identified. GALLSTONES: No shadowing gallstones. GALLBLADDER SLUDGE: No gallbladder sludge. GALLBLADDER WALL: Normal thickness PERICHOLECYSTIC FLUID: None Pancreas: Limited assessment without gross abnormality seen. PORTAL VEIN: Normal blood flow. Liver size: Normal No RIGHT hydronephrosis identified. US/US right upper quadrant IMPRESSION: No hepatic mass visualized. Unremarkable right upper quadrant ultrasound with limited assessment of the pancreas. Continued concern for hepatic mass may be further assessed with MRI of the liver with and without contrast. Impression dictated by: Kodak Mccarthy M.D. 12/10/2024 3:03 PM Dictation Location: [place] [address] Electronically authenticated by: [id number] Y Date: 12/10/2024 15:03
[2024-12-09 08:04] LABS: Basophils Percent Auto 0.2 % (0.2-2.0); Eosinophils Absolute Auto 0.4 10^3/uL (0.0-0.7); Eosinophils Percent Auto 7.4 % (0.9-7.0); Hematocrit 38.2 % (36.0-48.0); Hemoglobin 13.1 g/dL (12.0-16.0); Immature Granulocytes Abs Auto 0.01 10^3/uL (0.00-0.03); Immature Granulocytes Pct Auto 0.2 % (0.0-0.5); Lymphocytes Absolute Auto 1.1 10^3/uL (1.2-3.8); Lymphocytes Percent Auto 22.3 % (20.5-60.0); Mean Corpuscular HGB Conc 34.3 g/dL (29.9-35.2); Mean Corpuscular Hemoglobin 29.7 pg (26.7-34.0); Mean Corpuscular Volume 86.6 fL (81.0-99.0); Mean Platelet Volume 9.4 fL (9.5-13.5); Monocytes Absolute Auto 0.5 10^3/uL (0.3-0.8); Monocytes Percent Auto 9.9 % (1.7-12.0); Neutrophils Absolute Auto 2.9 10^3/uL (1.4-6.5); Platelet Count 175 10^3/uL (150-450); Red Blood Count 4.41 10^6/uL (4.20-5.40); Red Cell Distribution Width 11.7 % (11.0-15.0); White Blood Count 4.8 10^3/uL (4.0-11.0)
[2024-12-09 08:28] LABS: Alanine Aminotransferase 18 U/L (14-59); Albumin Globulin Ratio 1.1; Albumin Level 3.5 g/dL (3.4-5.0); Alkaline Phosphatase 79 U/L (46-116); Anion Gap 12.2; Aspartate Amino Transferase 12 U/L (15-37); BUN Creatinine Ratio 17.7; Bilirubin Total 0.4 mg/dL (0.2-1.0); Calcium 9.1 mg/dL (8.5-10.1); Carbon Dioxide 29.9 mmol/L (21.0-32.0); Chloride 107 mmol/L (98-107); Chol HDL Ratio 2.4; Cholesterol 161 mg/dL (<=200); Estimated GFR (African America >60 (>=60 mL/min/1.73m^2); Estimated GFR (Non-African Ame >60 (>=60 mL/min/1.73m^2); Globulin 3.2 g/dL; Glucose 88 mg/dL (74-106); HDL Cholesterol 66 mg/dL (40-60); Potassium 4.1 mmol/L (3.5-5.1); Sodium 145 mmol/L (136-145); TSH W/ REFLEX FT4 0.134 uIU/mL (0.358-3.740); Total Protein 6.7 g/dL (6.4-8.2); Triglycerides 65 mg/dL (<=150)
[2024-12-09 10:26] LABS: Free T4 1.44 ng/dL (0.76-1.46)
[2024-12-10 05:08] LABS: Vitamin B12 163 pg/mL (232-1245)
== END 2024-12-09 06:57 | disposition home or self-care (01) ==
LOC: US 06:59
PROVIDERS: PCP Physician Assistant; Visit Provider Physician Assistant
DX: R93.2 Abnormal findings on diagnostic imaging of liver and biliary tract (principal); K76.9 Liver disease, unspecified; E53.9 Vitamin B deficiency, unspecified; E78.00 Pure hypercholesterolemia, unspecified; I47.10 Supraventricular tachycardia, unspecified; E87.6 Hypokalemia; E03.9 Hypothyroidism, unspecified; E55.9 Vitamin D deficiency, unspecified; R63.4 Abnormal weight loss; K20.0 Eosinophilic esophagitis; K57.30 Diverticulosis of large intestine without perforation or abscess without bleeding; K31.89 Other diseases of stomach and duodenum
CPT/HCPCS: 36415; 76705; 80053; 80061; 82248; 82306; 82607; 84439; 84443; 85025

== ENCOUNTER 2024-12-09 07:01 | Outpatient (OUT) | payer BC, SELFPAY ==
--- OUTSIDE RECORDS SUMMARY | 2024-12-09 07:06 | XMS_ITS | CCD ---
Author Organization [facility] Care Team Providers Care Trouble Tracer Name Role Phone CANDY GEE Unavailable Unavailable CANDY GEE Unavailable Unavailable CANDY GEE Unavailable Unavailable Candy Gee Primary Care Provider [phone] Candy Gee Primary Care Provider [phone] Candy Gee Primary Care Provider [phone] Cali Zhao MD Unavailable Jose Cruz Young MD Primary Care Provider [phone] Candy Patterson Primary Care Provider Candy Gee PA-C Primary Care Provider SAMANTHA [...] celecoxib Drug Allergy 2 Other (See Comments) [facility] Penicillins (antibiotic) (1 source) Penicillins Drug Allergy 2 Swelling [facility] (20 sources) celecoxib; Translations: [celecoxib] Drug Allergy 2 Other (See Comments), GI Bleeding [place] [facility] (1 source) penicillin; Translations: [penicillin] Drug Allergy [facility] [place] [facility] (20 sources) Shellfish-Deriv ed Products Propensity to adverse reactions to drug 2 Diarrhea, Nausea And Vomiting, GI intolerance, Other [facility] (14 sources) meloxicam; Translations: [MELOXICAM] Drug Allergy 8 Other (See Comments) [facility] (20 sources) Penicillins; Translations: [PENICILLINS] Propensity to adverse reactions to drug 2 Swelling, Angioedema [facility] Work Phone: (20 sources) gabapentin; Translations: [GABAPENTIN] Drug Allergy 2 Nausea Only, Nausea And Vomiting [facility]ive (14 sources) meloxicam Drug Allergy 3 Other [facility] (2 sources) Seafood Propensity to adverse reactions to drug 2 Diarrhea, Nausea And Vomiting [facility] [address] (1 source) Shellfish; Translations: [SHELLFISH DERIVED] Propensity to adverse reactions to drug (disorder) 4 [facility] Repository (1 source) Shellfish Propensity to adverse reactions to drug 4 Diarrhea [address] Medications Current Medications Medication Drug Class(es) Dates [...] in the morning. 0 Active estrogens, conjugated (fci) 0.625 mg/ml vaginal cream (6 sources) Estrogen [...] (PYRIDIUM) tablet 200 mg polyethylene glycol 3350 09524 mg powder for oral solution (3 sources) [...] muscle every 30 days. 0 Active thyroid (fci) 60 mg oral tablet (11 sources) Start: [...] by arsalan th in the morning thyroid (HYPNOTHERAPIST Thyroid) 60 MG tablet Indications: Acquired hypothyroidism (CMS/HCC) , ESS (euthyroid sick syndrome) Take 1 tablet (60 mg) by mouth in the morning. 30 tablet 2 08/15/2023 Active Start: 08-15-2023 take 1 tablet by arsalan th in the morning thyroid (HYPNOTHERAPIST Thyroid) 60 MG tablet Indications: Acquired hypothyroidism (CMS/HCC) , ESS (euthyroid sick syndrome) Take 1 tablet (60 mg) by mouth in the morning. 30 tablet 2 08/15/2023 Active Start: 12-19-2021 take 60 mg by mouth twice daily 60 mg, Oral, 2 times daily, First dose on [place] 02/01/22 at 2100, Until Discontinued Start: 11-09-2021 take 1 tablet by arsalan th twice daily HYPNOTHERAPIST THYROID 90 MG tablet take 1 tablet by mouth twice a day ON AN EMPTY STOMACH 0 11/09/2021 Active take 1 tablet by arsalan th once daily in the morning HYPNOTHERAPIST THYROID 60 MG tablet Take 1 tablet [...] High Riskon 11-27-19 25 HPV Interp Normal [facility] Comment on above: Result Comment: This [...] purposes. Performed By: #### H PVH #### [address] [address] Malted Milk Supervisor: Sonu Heredia MD HPV Type 16 Not detected Normal [facility] Comment on above: Performed By: #### H PVH #### [address] [address] Malted Milk Supervisor: Sonu Heredia MD HPV Type 18 Not detected [facility] Comment on above: Performed By: #### H PVH #### [address] [address] Malted Milk Supervisor: Sonu Heredia MD Other High Risk HPV Not detected Normal [facility] Comment on above: Performed By: #### H PVH #### [address] [address] Malted Milk Supervisor: Sonu Heredia MD HPV DNA High Riskon 11-26-19 25 HPV Sample .THIN PREP [facility] Comment on above: Performed By: #### H PVH #### [address] [address] Malted Milk Supervisor: Sonu Heredia MD Source CERVICAL MATERIAL Normal [facility] Comment on above: Performed By: #### H PVH #### [address] [address] Malted Milk Supervisor: Sonu Heredia MD Cytology Reporton 11-24-2024 Cytology report Cyto stain.thin prep Doc (Cvx/Vag) (NOTE) Path Number: [id number] DIAGNOSIS Imaged ThinPrep Pap - Cervical (1 [...] or for other forensic purposes. Performed at [facility], [address] [place], [place] [id number] . Source of Specimen: A: Imaged ThinPrep Pap - Cervical (1 monolayer slide) HPV Reflex?................. .....HPV Regardless Clinical History Co-Test: ThinPrep Pap with high risk HPV testing Z01.419 Routine milk collector exam without abnormal findings Z11.51 Encounter for screening for HPV Processing Lab: [address] [address] Interpretation performed at [address] [address] This Pap Test has been evaluated with [...] REPORT Patient Name: CHESTER NEGRO. Med Rec: [id number] [facility] [employer] [facility] PATHOLOGISTS [facility] [address] [place] [address] [place], [place] [address] Normal [facility] Office Visiton 10-13-2024 Follow-up visit [id number] Chester Negro 1960 F Date Provider Department Center 10/13/2024 VIK GARCIA CARD [facility] Family History Problem Relation Age of Onset Supraventricular tachycardia Mother Atrial fibrillation Mother Heart attack Father Coronary artery disease Sister Coronary artery disease Brother Family Status - Relation Status Age at Mother Alive Father Sister Alive Brother Level of Service:98605 NM OFFICE/OUTPATIENT ESTABLISHED LOW MDM 20 MIN Normal [facility] MR Heart cine for blood flow velocity mappingon 08-20-2024 * * *Final Report* * * DATE OF EXAM: Aug 20 2024 12:01PM HCM 0704 - MRI CARDIAC VELOCITY FLOW MAP / PROCEDURE REASON: Chronic diastolic (congestive) heart failure * * * * Physician Interpretation * * * * RESULT: Cardiac MRI Report: [facility] Date of service: 08/20/2024 10:56:05 AM Linked orders:[id number] CARD MORPH FUNC WO/W IVCON;[id number] CARDIAC VELOCITY FLOW MAP. Ordering physician: VIK [...] --+ Mid 1011.18 96.93 +------+ +---- --+ [place] 970.72 117.30 +------+ +---- --+ Global 1018.40 103.55 +------+ +---- --+ Normal values based on healthy individuals: T1: 950 +/- 21 ms; ECV: 26 +/- 4% Aortic Valve: There is no aortic regurgitation. AV Flow Quantification: ST Junction Forward Volume: 83 ml Reverse Volume: 1 ml Net Forward Volu (more content not included)... [facility] * * *Final Report* * * DATE OF EXAM: Aug 20 2024 12:01PM HCM 0704 - MRI CARDIAC VELOCITY FLOW MAP / PROCEDURE REASON: Chronic diastolic (congestive) heart failure * * * * Physician Interpretation * * * * RESULT: Cardiac MRI Report: [facility] Date of service: 08/20/2024 10:56:05 AM Linked orders:[id number] CARD MORPH FUNC WO/W IVCON;[id number] CARDIAC VELOCITY FLOW MAP. Ordering physician: VIK [...] --+ Mid 1011.18 96.93 +------+ +---- --+ [place] 970.72 117.30 +------+ +---- --+ Global 1018.40 [...] PV Flow Quantification: (more content not included)... [facility] MRI CARD MORPH FUNC WO/W IVC ONon 08-20-2024 MRI CARD MORPH FUNC WO/W IVCON * * *Final Report* * * DATE OF EXAM: Aug 20 2024 12:01PM HCM 0703 - MRI CARD MORPH FUNC WO/W IVCON / PROCEDURE REASON: Chronic diastolic (congestive) heart failure * * * * Physician Interpretation * * * * RESULT: Cardiac MRI Report: [facility] Date of service: 08/20/2024 10:56:05 AM Linked orders:[id number] CARD MORPH FUNC WO/W IVCON;[id number] CARDIAC VELOCITY FLOW MAP. Ordering physician: VIK [...] --+ Mid 1011.18 96.93 +------+ +---- --+ [place] 970.72 117.30 +------+ +---- --+ Global 1018.40 [...] 0 % (more content not included)... Normal [facility] MRI CARDIAC MORPH FUNC WO/W IVCONon 08-20-2024 * * *Final Report* * * DATE OF EXAM: Aug 20 2024 12:01PM HCM 0703 - MRI CARD MORPH FUNC WO/W IVCON / PROCEDURE REASON: Chronic diastolic (congestive) heart failure * * * * Physician Interpretation * * * * RESULT: Cardiac MRI Report: [facility] Date of service: 08/20/2024 10:56:05 AM Linked orders:[id number] CARD MORPH FUNC WO/W IVCON;[id number] CARDIAC VELOCITY FLOW MAP. Ordering physician: VIK [...] --+ Mid 1011.18 96.93 +------+ +---- --+ [place] 970.72 117.30 +------+ +---- --+ Global 1018.40 103.55 +------+ +---- --+ Normal values based on healthy individuals: T1: 950 +/- 21 ms; ECV: 26 +/- 4% Aortic Valve: There is no aortic regurgitation. AV Flow Quantification: ST Junction Forward Volume: 83 ml Reverse Volume: 1 ml Net Forward Vol (more content not included)... [facility]/20/2024 * * *Final Report* * * DATE OF EXAM: Aug 20 2024 12:01PM HCM 0703 - MRI CARD MORPH FUNC WO/W IVCON / PROCEDURE REASON: Chronic diastolic (congestive) heart failure * * * * Physician Interpretation * * * * RESULT: Cardiac MRI Report: [facility] Date of service: 08/20/2024 10:56:05 AM Linked orders:[id number] CARD MORPH FUNC WO/W IVCON;[id number] CARDIAC VELOCITY FLOW MAP. Ordering physician: VIK [...] --+ Mid 1011.18 96.93 +------+ +---- --+ [place] 970.72 117.30 +------+ +---- --+ Global 1018.40 [...] PV Flow Quantification: (more content not included)... [facility] MRI CARDIAC VELOCITY FLOW ODILON Weiss 08-20-2024 MRI CARDIAC VELOCITY FLOW MAP * * *Final Report* * * DATE OF EXAM: Aug 20 2024 12:01PM HCM 0704 - MRI CARDIAC VELOCITY FLOW MAP / PROCEDURE REASON: Chronic diastolic (congestive) heart failure * * * * Physician Interpretation * * * * RESULT: Cardiac MRI Report: [facility] Date of service: 08/20/2024 10:56:05 AM Linked orders:[id number] CARD MORPH FUNC WO/W IVCON;[id number] CARDIAC VELOCITY FLOW MAP. Ordering physician: VIK [...] --+ Mid 1011.18 96.93 +------+ +---- --+ [place] 970.72 117.30 +------+ +---- --+ Global 1018.40 [...] 0 % (more content not included)... Normal [facility] No Panel Informationon 08-20 IMPRESSION: 1. No [...] GREGORY MD on Aug 20 2024 3:56PM [facility] Radiology Study observation (narrative) [facility] No Panel InformationOrdered By: Ccf Provider on 08-20-2024 [facility] 36on 08-18-2024 36 I received a call fr om the patient regarding an MRI order that was supposed to be sent to [facility], she requests a call back at [phone] to discuss further. Normal [facility] Office Visiton 08-04-2024 Follow-up visit [id number] Chester Negro 1960 F Date Provider Department Center 08/04/2024 VIK GARCIA ORALIA Fowler Family History Problem Relation Age of Onset Supraventricular tachycardia Mother Atrial fibrillation Mother Family Status - Relation Status Age at Mother Level of Service:08858 NM OFFICE/OUTPATIENT NEW MODERATE MDM 45 MINUTES Normal [facility] XR THORACIC SPINE 2 VIEWSon 07-30-2024 XR [...] 07-11-2024 Anion gap [Moles/Vol] 12.5 mmol/L NO [facility] Calcium [Mass/Vol] 9.1 mg/dL 8.5 - 10. 1 mg/dL [facility] Chloride [Moles/Vol] 108 mmol/L High 98 - 10 7 mmol/L [facility] CO2 [Moles/Vol] 28.8 mmol/L 21.0 - 32.0 mmol/L [facility] Creatinine [Mass/Vol] 0.68 mg/dL 0.55 - 1.02 mg/dL [facility] GFR/1.73 sq M.predicted CKD-EPI (S/P/Bld) [Vol rate/Area] >60 >=60 mL/min/1.73 m 2 [facility] Glucose [Mass/Vol] 89 mg/dL 74 - 106 mg/dL [facility] Interpretation and review of laboratory results Abnormal [facility] Potassium [Moles/Vol] 4.3 mmol/L 3.5 - 5.1 mmol/L [facility] Sodium [Moles/Vol] 145 mmol/L 136 - 145 mmol/L [facility] TBH EGFR-NON AF LIBYAN >60 >=60 mL/min/1.73 m 2 [facility] Urea nitrogen [Mass/Vol] 9 mg/dL 7.0 - 18.0 mg/dL [facility] Urea nitrogen/Creatinine [Mass ratio] 13.2 mg/mg [facility] Office Visiton 06-24-2024 Follow-up visit [id number] Chester Negro 1960 F Date Provider Department Center 06/24/2024 271-ARLENE FIGUEROA CARD [facility] Family History Problem Relation Age of Onset Supraventricular tachycardia Mother Family Status - Relation Status Age at Mother Level of Service:53586 NM OFFICE/OUTPATIENT ESTABLISHED MOD MDM 30 MIN [facility] 36on 06-11-2024 36 Regarding stress phu t result from 06/01/2024: MD Isabel Patel MA Please reassure the patient that her stress test was nonischemic Thank you. Before I call her, were you able to review the echo she had on 06/01 also? And if they're normal, does she still need apt with you on 06/24? Please advise. Thanks. [facility] Office Visiton 05-20-2024 Follow-up visit [id number] Chester Negro German 1960 F Date Provider Department Center 05/20/2024 Keegan-SHELLIE FIGUEROA CARD [facility] Family History Problem Relation Age of Onset Supraventricular tachycardia Mother Family Status - Relation Status Age at Mother Level of Service:43776 NM OFFICE/OUTPATIENT NEW MODERATE MDM [address] [facility] FABIAN DIGITAL SCREEN ONEIL Renteria 04-27-2024 [facility] FABIAN DIGITAL SCREEN BILATERAL EXAMINATION: SCREENING DIGITAL [...] to the patient regarding the results. The [employer] recommends annual mammograms for women 40 years and older. Performing Facility: [facility] [place] [address] [place], [place] [address] Interpreted by: Denice Danielle MD Signed by: Denice Danielle MD 04/27/24 Final result Normal [facility] DEXA BONE DENSITY AXIAL SKEL ETONojuan [...] have additional risk factors. Template code: [id number] [facility] EXAMINATION: BONE DENSITOMETRY 03/20/2022 6:25 am TECHNIQUE: A bone density dual x-ray absorptiometry (DXA) scan was performed of the lumbar spine and left hip on a [employer] system. COMPARISON: None. HISTORY: ORDERING SYSTEM PROVIDED HISTORY: Post-menopausal TECHNOLOGIST PROVIDED HISTORY: post menopausal Gender: F Age: 61 y/o FINDINGS: LUMBAR SPINE: L1-L4 BMD: 1.461 g/cm2 T-score: 2.1 Z-score: 2.5 LEFT TOTAL HIP: BMD: 1.156 g/cm2 T-score: 1.2 Z-score: 1.5 LEFT FEMORAL NECK: BMD: 1.136 g/cm2 T-score: 0.7 Z-score: 1.4 FRAX: Not Indicated. [facility] Derek Fairchild DO - 03/20/2022 EXAMINATION: BONE DENSITOMETRY 03/20/2022 6:25 am TECHNIQUE: A bone density dual x-ray absorptiometry (DXA) scan was performed of the lumbar spine and left hip on a [employer] system. COMPARISON: None. HISTORY: ORDERING SYSTEM PROVIDED [...] have additional risk factors. Template code: [id number] [employer] Phone: Radiology Study observation (narrative) [employer] Phone: DEXA BONE DENSITY AXIAL SKEL ETONOrdered By: Derek Fairchild on 03-20-2022 [employer] Phone: Hemoglobin and Hematocriton 02-01-2022 Hematocrit (Bld) [Volume fraction] 35.5 % Low 36 - 46 % [facility] Hemoglobin (Bld) [Mass/Vol] 12.5 g/dL 12 - 16 g/dL [facility] Interpretation and review of laboratory results Abnormal [facility] Urinalysis with Reflex to Cu ltureon 02-01-2022 Bilirubin Urine Negative NEGATIVE [facility] Color, UA Yellow Yellow [facility] Glucose, Ur Negative NEGATIVE [facility] Ketones Ql (U) Negative NEGATIVE [facility] Leukocyte esterase Test strip Ql (U) Negative NEGATIVE [facility] Nitrite, Urine Negative NEGATIVE [facility] pH, UA 6.5 5 - 8 [facility] Protein, UA Negative NEGATIVE [facility] Specific [place], UA 1.008 1 - 1.03 [facility] Turbidity UA Clear Clear [facility] Urinalysis Comments Microscopic exam not performed based on chemical results unless requested in original order. [facility] Urine Hgb Negative NEGATIVE [facility] Urobilinogen, Urine Normal Normal [facility] EKG 12 leadOrdered By: Dayanna Jones on 01-23-2022 Atrial Rate 57 BPM [facility] Work Phone: P [place] 6 degrees [facility] Work Phone: P-R Interval 134 ms [facility] Work Phone: Q-T Interval 430 ms [facility] Work Phone: QRS Duration 92 ms [facility] Work Phone: QTc Calculation (Bazett) 418 ms [facility] Work Phone: R [place] -27 degrees [facility] Work Phone: T [place] -7 degrees [facility] Work Phone: Ventricular Rate 57 BPM [facility] Work Phone: [employer] Work Phone: EKG 12 leadon 01-23-2022 Sinus bradycardia Low voltage QRS Borderline ECG When compared with ECG of 07-MAR-2016 09:50, No significant change was found [facility] Yevgeniy Mon MD - 01/23/2022 Sinus bradycardia Low voltage QRS Borderline ECG When compared with ECG of 07-MAR-2016 09:50, No significant change was found [employer] Work Phone: Urine cultureon 01-23-2022 Bacteria identified Cx Nom (U) NO SIGNIFICANT GROWTH JASPER [employer] Specimen Description .CLEAN CATCH URINE [facility] Basic Metabolic Panel w/ Ref se to MGon 01-22-2022 Anion gap [Moles/Vol] 8 mmol/L Low 9 - 17 mmol/L [facility] Calcium [Mass/Vol] 9.5 mg/dL 8.6 - 10. 4 mg/dL [facility] Chloride [Moles/Vol] 104 mmol/L 98 - 10 7 mmol/L [facility] CO2 [Moles/Vol] 27 mmol/L 20 - 31 mmol/L [facility] Creatinine [Mass/Vol] 0.51 mg/dL 0.5 - 0.9 mg/dL [facility] GFR >60 60 - PI NF mL/min [facility] GFR Non- >60 60 - PINF mL/min [facility] GFR/1.73 sq M.predicted MDRD (S/P/Bld) [Vol rate/Area] [facility] Comment on above: Average GFR for 50-5 9 years old: 93 mL/min/1.73sq m Chronic Kidney Disease: <60 mL/min/1.73sq m Kidney failure: <15 mL/min/1.73sq m eGFR calculated using average adult body mass. Additional eGFR calculator available at: http://www.[employer]/multiple_crcl_2012.htm Glucose [Mass/Vol] 87 mg/dL 70 - 99 mg/dL [facility] Interpretation and review of laboratory results Abnormal [facility] Potassium [Moles/Vol] 4.5 mmol/L 3.7 - 5.3 mmol/L [facility] Sodium [Moles/Vol] 139 mmol/L 135 - 144 mmol/L [facility] Urea nitrogen (BldV) [Mass/Vol] 13 mg/dL 6 - 20 mg/dL [facility] CBC auto differentialon 01-05 Absolute Eos # 0.50 High [facility] Absolute Lymph # 1.50 [facility] Absolute Bond # 0.50 [facility] Basophils (Bld) [#/Vol] 0.00 10*3/uL [facility] Basophils/100 WBC (Bld) 0 % 0 - 2 % [facility] Eosinophils/100 WBC (Bld) 6 % High 0 - 4 % [facility] Hematocrit (Bld) [Volume fraction] 42.2 % 36 - 46 % [facility] Hemoglobin (Bld) [Mass/Vol] 14.2 g/dL 12 - 16 g/dL [facility] Interpretation and review of laboratory results Abnormal [facility] Lymphocytes/100 WBC (Bld) 21 % Low 24 - 44 % [facility] MCH (RBC) [Entitic mass] 28.5 pg 26 - 34 pg [facility] MCHC (RBC) [Mass/Vol] 33.6 g/dL 31 - 3 7 g/dL [facility] MCV (RBC) [Entitic vol] 84.7 fL 80 - 100 fL [facility] Monocytes/100 WBC (Bld) 7 % 1 - 7 % [facility] Platelet distribution width (Bld) [Ratio] 13.4 % 11.5 - 14.9 % [facility] Platelet mean volume (Bld) [Entitic vol] 8.1 fL 6 - 12 fL [facility] Platelets (Bld) [#/Vol] 217 10*3/uL [facility] RBC (Bld) [#/Vol] 4.98 10*6/uL 4 - 5.2 m/uL [facility] Segmented neutrophils/100 WBC (Bld) 66 % 36 - 66 % [facility] Segs Absolute 4.70 [facility] WBC (Bld) [#/Vol] 7.1 10*3/uL [facility] No Panel Informationon 01-22 No [...] pneumothorax or pleural effusion. Normal cardiomediastinal silhouette. [facility] Patrick Jimenez - 01/22/2022 EXAMINATION: TWO XRAY VIEWS OF THE CHEST 01/22/2022 1:05 pm COMPARISON: Chest x-ray dated 22 Nov 2017 HISTORY: ORDERING SYSTEM PROVIDED HISTORY: Pre-op testing TECHNOLOGIST PROVIDED HISTORY: pre-op Reason for Exam: pre op surgery 02/01/22, no current chest complaints FINDINGS: No acute airspace infiltrate. No pneumothorax or pleural effusion. Normal cardiomediastinal silhouette. IMPRESSION: No acute cardiopulmonary disease. [facility] Work Phone: Radiology Study observation (narrative) [facility] Work Phone: No Panel InformationOrdered By: Patrick Jimenez on 01-22-2022 [facility] Work Phone: Serum (quantitativ e)on 01-22-2022 hCG Quant 2 NINF [facility] Comment on above: Non-preg premeno <=5 Postmeno <=8 Male <=3 If HCG results do not concur with clinical observations, additional testing to confirm results is recommended. Elevated results not associated with may be found in patients with other diseases such as tumors of the germ cells (testis, ovaries, etc.), bladder, pancreas, stomach, lungs, and liver. [facility] TYPE AND SCREENon 01-22-2022 ABO/Rh Negative [facility] Arm Band Number [id number] [facility] Expiration Date 02/04/2022,2359 [facility] Urinalysison 01-22-2022 Bilirubin Urine Negative NEGATIVE [facility] Color, UA Yellow Yellow [facility] Glucose, Ur Negative NEGATIVE [facility] Ketones Ql (U) Negative NEGATIVE [facility] Leukocyte esterase Test strip Ql (U) Negative NEGATIVE [facility] Nitrite, Urine Negative NEGATIVE [facility] pH, UA 6.5 5 - 8 [facility] Protein, UA Negative NEGATIVE [facility] Specific [place], UA 1.012 1 - 1.03 [facility] Turbidity UA Clear Clear [facility] Urinalysis Comments Microscopic exam not performed based on chemical results unless requested in original order. [facility] Urine Hgb Negative NEGATIVE [facility] Urobilinogen, Urine Normal Normal [facility] Microscopic Urinalysison Bacteria, UA FEW Abnormal None [facility] Casts UA 0 TO 2 /LPF [facility] Epithelial Cells UA 6 TO 9 /HPF [facility] Interpretation and review of laboratory results Abnormal [facility] RBC, UA 3 to 5 /HPF [facility] WBC, UA 3 to 5 /HPF [facility] Urinalysis with Reflex to Cu ltureon 12-27-2021 Bilirubin Urine Negative NEGATIVE [facility] Color, UA Yellow Yellow [facility] Glucose, Ur Negative NEGATIVE [facility] Interpretation and review of laboratory results Abnormal [facility] Ketones Ql (U) Negative NEGATIVE [facility] Leukocyte esterase Test strip Ql (U) MOD Abnormal NEGATIVE [facility] Nitrite, Urine Negative NEGATIVE [facility] HOSPITAL pH, UA 6.0 [facility] Protein, UA Negative NEGATIVE [facility] Specific [place], UA 1.018 [facility] Turbidity UA Clear Clear [facility] Urine Hgb Negative NEGATIVE [facility] Urobilinogen, Urine Normal Normal [facility] FABIAN DIGITAL SCREEN BILA TERALon 12-25-2021 Unremarkable study o f the breasts. No evidence of significant interval change. BIRADS: BIRADS - CATEGORY 1 Negative, no evidence of malignancy. Normal interval follow-up is recommended in 12 months. OVERALL ASSESSMENT - NEGATIVE A letter of notification will be sent to the patient regarding the results. The [employer] recommends annual mammograms for women 40 years and older. [facility] EXAMINATION: SCREENING DIGITAL BILATERAL MAMMOGRAM WITH [...] suspicious microcalcification, or area of architectural distortion. [facility] Radiology Study observation (narrative) [facility] Work Phone: [facility] FABIAN DIGITAL SCREEN BILA TERALOrdered By: Glory Joy on 12-25-2021 [facility] Work Phone: Free T3on 11-29-2021 FT3 6.51 pg/mL High 2.00-4.40 [facility] Contracting Officer Comment on above: Performed By: #### F T3, TSH, FT4 #### [facility] [address], [place] [id number] Free T4on 11-29-2021 Free T4 [Mass/Vol] 1.24 ng/dL Normal 0.80-1.80 [facility] Comment on above: Performed By: #### F T3, TSH, FT4 #### [facility] [address], [place] [id number] TSHon 11-29-2021 TSH 1.100 uIU/mL Normal 0.400-4.500 [facility] Contracting Officer Comment on above: Performed By: #### F T3, TSH, FT4 #### [facility] [address], [place] [id number] Free T3on 10-23-2021 FT3 2.10 pg/mL Normal 2.00-4.40 [facility] Comment on above: Performed By: #### F T3, TSH, FT4 #### [facility] [address], [place] [id number] Free T4on 10-23-2021 Free T4 [Mass/Vol] 0.59 ng/dL Low 0.80-1.80 [facility] Comment on above: Performed By: #### F T3, TSH, FT4 #### [facility] [address], [place] [id number] Q - T3 TOTALon 10-23-2021 T3, TOTAL 84 ng/dL Normal 76-181 [facility] Specialist Comment on above: Order Comment: [facility] performed at: [facility], [facility], [address] [place] [address], [address] [place] [address], [id number], Security Patrol Driver: Roque Guerrero MDQuest Collection Date/Time: [id number] Results Received Date/Time: [id number] Reported Date/Time: FASTING: NO Performed By: #### F T3, TSH, FT4 #### [facility] [address], [place] [id number] Q - T3,REVERSE,LC/MS/MSon T3 REVERSE, LC/MS/MS 6 ng/dL Low 8-25 [facility] Comment on above: Order Comment: Quest performed at: [facility], [facility], [address], [place], [place], , Security Patrol Driver: Kale Leon M.D.,PhDQuest Collection Date/Time: [id number] Results Received Date/Time: [id number] Reported Date/Time: FASTING: NO Result Comment: This test was developed and its analytical performance characteristics have been determined by [facility] [place], [place]. It has not been cleared or approved by the U.S. Food and Drug Administration. This assay has been validated pursuant to the CLIA regulations and is used for clinical purposes. Performed By: #### F T3, TSH, FT4 #### [facility] [address], [place] [id number] TSHon 10-23-2021 TSH 165.300 uIU/mL High 0.400-4.500 [facility] Comment on above: Performed By: #### F T3, TSH, FT4 #### [facility] [address], [place] [id number] Basic Metabolic Panelon Anion gap [Moles/Vol] 18 mmol/L Normal 12-20 [facility] Comment on above: Result Comment: Effe ctive 07/13/2019 reference range changed. Performed By: #### C RP, CK, TSH, FT4, FT3, ESR, CBCAD, BMP #### [facility] [address], [place] [id number] Calcium [Mass/Vol] 9.9 mg/dL Normal 8.6-10.2 [facility] Comment on above: Performed By: #### C RP, CK, TSH, FT4, FT3, ESR, CBCAD, BMP #### [facility] [address], [place] [id number] Chloride [Moles/Vol] 107 mmol/L Normal 98-107 [facility] Comment on above: Performed By: #### C RP, CK, TSH, FT4, FT3, ESR, CBCAD, BMP #### [facility] [address], [place] [id number] CO2 [Moles/Vol] 23 mmol/L Normal 20-31 [facility] Comment on above: Performed By: #### C RP, CK, TSH, FT4, FT3, ESR, CBCAD, BMP #### [facility] [address], [place] [id number] Creatinine [Mass/Vol] 0.7 mg/dL Normal 0.6-1.4 [facility] Comment on above: Performed By: #### C RP, CK, TSH, FT4, FT3, ESR, CBCAD, BMP #### [facility] [address], [place] [id number] eGFRAA 108 mL/min/1.73m2 Normal >60 [facility] Specialist Comment on above: Performed By: #### C RP, CK, TSH, FT4, FT3, ESR, CBCAD, BMP #### [facility] [address], [place] [id number] eGFRNAA 89 mL/min/1.73m2 Normal >60 [facility] Specialist Comment on above: Performed By: #### C RP, CK, TSH, FT4, FT3, ESR, CBCAD, BMP #### [facility] [address], [place] [id number] Glucose [Mass/Vol] 86 mg/dL Normal 65-99 [facility] Contracting Officer Comment on above: Result Comment: For FASTING Glucose --- ADA reference ranges: Normal 65-99 mg/dl Prediabetes 100-125 Diabetes >/= 126 Performed By: #### C RP, CK, TSH, FT4, FT3, ESR, CBCAD, BMP #### [facility] [address], [place] [id number] Potassium [Moles/Vol] 4.5 mmol/L Normal 3.5-5.5 [facility] Comment on above: Performed By: #### C RP, CK, TSH, FT4, FT3, ESR, CBCAD, BMP #### [facility] [address], [place] [id number] Sodium [Moles/Vol] 143 mmol/L Normal 135-146 [facility] Contracting Officer Comment on above: Performed By: #### C RP, CK, TSH, FT4, FT3, ESR, CBCAD, BMP #### [facility] [address], [place] [id number] Urea nitrogen [Mass/Vol] 13 mg/dL Normal 7-25 [facility] Contracting Officer Comment on above: Performed By: #### C RP, CK, TSH, FT4, FT3, ESR, CBCAD, BMP #### [facility] [address], [place] [id number] C-Reactive Proteinon 022 CRP IV 1.2 mg/dl Normal <5.0 [facility] Specialist Comment on above: Performed By: #### C RP, CK, TSH, FT4, FT3, ESR, CBCAD, BMP #### [facility] [address], [place] [id number] Complete Blood Count with Au to Diffon 07-12-2021 Basophils (Bld) [#/Vol] 0.02 10*3/uL Normal 0.00-0.20 [facility] Contracting Officer Comment on above: Performed By: #### C RP, CK, TSH, FT4, FT3, ESR, CBCAD, BMP #### [facility] [address], [place] [id number] Basophils/100 WBC (Bld) 0.3 % Normal [facility] Specialist Comment on above: Performed By: #### C RP, CK, TSH, FT4, FT3, ESR, CBCAD, BMP #### [facility] [address], [place] [id number] Eosinophils (Bld) [#/Vol] 0.69 10*3/uL High 0.02-0.50 [facility] Contracting Officer Comment on above: Performed By: #### C RP, CK, TSH, FT4, FT3, ESR, CBCAD, BMP #### [facility] [address], [place] [id number] Eosinophils/100 WBC (Bld) 9.2 % Normal [facility] Contracting Officer Comment on above: Performed By: #### C RP, CK, TSH, FT4, FT3, ESR, CBCAD, BMP #### [facility] [address], [place] [id number] Erythrocyte distribution width (RBC) [Ratio] 12.2 % Normal 11.0-15.0 [facility] Contracting Officer Comment on above: Performed By: #### C RP, CK, TSH, FT4, FT3, ESR, CBCAD, BMP #### [facility] [address], [place] [id number] Hematocrit (Bld) [Volume fraction] 40.9 % Normal 35.0-47.0 [facility] Specialist Comment on above: Performed By: #### C RP, CK, TSH, FT4, FT3, ESR, CBCAD, BMP #### [facility] [address], [place] [id number] Hemoglobin (Bld) [Mass/Vol] 13.5 g/dL Normal 11.6-15.5 [facility] Specialist Comment on above: Performed By: #### C RP, CK, TSH, FT4, FT3, ESR, CBCAD, BMP #### [facility] [address], [place] [id number] Lymphocytes (Bld) [#/Vol] 1.4 10*3/uL Normal 0.9-3.9 [facility] Specialist Comment on above: Performed By: #### C RP, CK, TSH, FT4, FT3, ESR, CBCAD, BMP #### [facility] [address], [place] [id number] Lymphocytes/100 WBC (Bld) 18.1 % Normal [facility] Specialist Comment on above: Performed By: #### C RP, CK, TSH, FT4, FT3, ESR, CBCAD, BMP #### [facility] [address], [place] [id number] MCH (RBC) [Entitic mass] 28.6 pg Normal 27.0-33.0 [facility] Specialist Comment on above: Performed By: #### C RP, CK, TSH, FT4, FT3, ESR, CBCAD, BMP #### [facility] [address], [place] [id number] MCHC (RBC) [Mass/Vol] 33.0 g/dL Normal 32.0-36.0 [facility] Comment on above: Performed By: #### C RP, CK, TSH, FT4, FT3, ESR, CBCAD, BMP #### [facility] [address], [place] [id number] MCV (RBC) [Entitic vol] 87 fL Normal 80-100 [facility] Specialist Comment on above: Performed By: #### C RP, CK, TSH, FT4, FT3, ESR, CBCAD, BMP #### [facility] [address], [place] [id number] Monocytes (Bld) [#/Vol] 0.7 10*3/uL Normal 0.2-0.9 [facility] Comment on above: Performed By: #### C RP, CK, TSH, FT4, FT3, ESR, CBCAD, BMP #### [facility] [address], [place] [id number] Monocytes/100 WBC (Bld) 8.7 % Normal [facility] Comment on above: Performed By: #### C RP, CK, TSH, FT4, FT3, ESR, CBCAD, BMP #### [facility] [address], [place] [id number] Neutrophils (Bld) [#/Vol] 4.7 10*3/uL Normal 1.5-7.8 [facility] Specialist Comment on above: Performed By: #### C RP, CK, TSH, FT4, FT3, ESR, CBCAD, BMP #### [facility] [address], [place] [id number] Neutrophils/100 WBC (Bld) 63.3 % Normal [facility] Specialist Comment on above: Performed By: #### C RP, CK, TSH, FT4, FT3, ESR, CBCAD, BMP #### [facility] [address], [place] [id number] Platelet mean volume (Bld) [Entitic vol] 10.00 fL Normal 7.50-12.[address] [facility] Comment on above: Performed By: #### C RP, CK, TSH, FT4, FT3, ESR, CBCAD, BMP #### [facility] [address], [place] [id number] Platelets (Bld) [#/Vol] 267 10*3/uL Normal 140-400 [facility] Specialist Comment on above: Performed By: #### C RP, CK, TSH, FT4, FT3, ESR, CBCAD, BMP #### [facility] [address], [place] [id number] RBC (Bld) [#/Vol] 4.72 10*6/uL Normal 3.90-5.20 [facility] Specialist Comment on above: Performed By: #### C RP, CK, TSH, FT4, FT3, ESR, CBCAD, BMP #### [facility] [address], [place] [id number] RDW-SD 39.2 fL Normal 37.0-50.0 [facility] Contracting Officer Comment on above: Performed By: #### C RP, CK, TSH, FT4, FT3, ESR, CBCAD, BMP #### [facility] [address], [place] [id number] WBC (Bld) [#/Vol] 7.5 10*3/uL Normal 3.8-11.0 Valerie tyson [place] Contracting Officer Comment on above: Performed By: #### C RP, CK, TSH, FT4, FT3, ESR, CBCAD, BMP #### [facility] [address], [place] [id number] Creatine Kinaseon 07-12-2021 CK [Catalytic activity/Vol] 16 U/L Low 26-192 [facility] Contracting Officer Comment on above: Performed By: #### C RP, CK, TSH, FT4, FT3, ESR, CBCAD, BMP #### [facility] [address], [place] [id number] Free T3on 07-12-2021 FT3 3.04 pg/mL Normal 2.00-4.40 [facility] Contracting Officer Comment on above: Performed By: #### C RP, CK, TSH, FT4, FT3, ESR, CBCAD, BMP #### [facility] [address], [place] [id number] Free T4on 07-12-2021 Free T4 [Mass/Vol] 1.29 ng/dL Normal 0.80-1.80 [facility] Contracting Officer Comment on above: Performed By: #### C RP, CK, TSH, FT4, FT3, ESR, CBCAD, BMP #### [facility] [address], [place] [id number] RBC Sedimentation Rateon ESR (Bld) [Velocity] 10.00 mm/h Normal 0.00-30.00 [facility] [place] Contracting Officer Comment on above: Performed By: #### F T3, TSH, FT4 #### [facility] [address], [place] [id number] TSHon 07-12-2021 TSH 13.040 uIU/mL High 0.400-4.500 [facility] Contracting Officer Comment on above: Performed By: #### C RP, CK, TSH, FT4, FT3, ESR, CBCAD, BMP #### [facility] [address], [place] [id number] [facility] FABIAN DIGITAL SCREEN SELF REFERRAL W OR [...] to the patient regarding the results. [employer] recommends annual mammograms for women 40 years and older. [facility] Phone: EXAMINATION: SCREENI NG DIGITAL BILATERAL MAMMOGRAM [...] suspicious microcalcification, or area of architectural distortion. [facility] Phone: [facility] Phone: T3, FreeOrdered By: Candy cheek on 06-15-2019 Free T3 [Mass/Vol] 2.83 pg/mL 2.02 - 4. 43 pg/mL [facility] Phone: T4, FreeOrdered By: Candy cheek on 06-15-2019 Thyroxine, Free 1.17 ng/dL 0.93 - 1.7 ng/dL [facility] Phone: TSH without ReflexOrdered By : Candy Gee on 06-15-2019 Interpretation and review of laboratory results Abnormal [facility] Work Phone: TSH Qn 35.69 m[IU]/L High [facility] Work Phone: Coding Summaryon 07-25-2017 Coding Summary CODING DATE: 018 [facility] STATUS: Home PAYOR: [employer] DESCRIPTION [...] Shahla Nguyen Date Saved: 07/25/2017 01:15 pm [facility] Provider Orderson 07-24-2017 Provider Orders [id number] IFF [facility] XR Elbow Complete Lefton XR Elbow Complete [...] ETIOLOGY AND SIGNIFICANCE. FOLLOW-UP NEEDED.ROBBIE Ervin #: [id number]: 07/23/2017T: 07/23/2017 Final Dictated by: Cathryn MEDINA, Alistair SDictated DT/TM: 07/23/17 6:10Signed (Electronic Signature): Cathryn MEDINA, Alistair S 07/23/17 10:51 aTechnologist: [facility] Vital Signs Date Time Vital Sign Value Performing Clinician Facility 11-20-2024 09:13-0400 Body height 152.4 cm Chana Hurtado MD Work Phone: [facility] 11-20-2024 09:13-0400 Body mass index (BMI) [Ratio] 35.78 kg/m2 Chana Hurtado MD Work Phone: [facility] 11-20-2024 09:13-0400 Body weight 83.1 kg Chana Hurtado MD Work Phone: [facility] 11-20-2024 09:13-0400 Diastolic blood pressure 81 mm[Hg] Chana Hurtado MD Work Phone: [facility] 11-20-2024 09:13-0400 Heart rate 51 /min Chana Hurtado MD Work Phone: [facility] 11-20-2024 09:13-0400 Respiratory rate 16 /min Chana Hurtado MD Work Phone: [facility] 11-20-2024 09:13-0400 Systolic blood pressure 135 mm[Hg] Chana Hurtado MD Work Phone: [facility] 10-14-2024 09:38-0400 Body height 162.6 cm Candy Hemmer PA Work Phone: [facility] 10-14-2024 09:38-0400 Body mass index (BMI) [Ratio] 31.34 kg/m2 Candy Hemmer PA Work Phone: [facility] 10-14-2024 09:38-0400 Body weight 82.83 kg Candy Hemmer PA Work Phone: [facility] 10-14-2024 09:38-0400 Diastolic blood pressure 72 mm[Hg] Candy Hemmer PA Work Phone: [facility] 10-14-2024 09:38-0400 Heart rate 54 /min Candy Hemmer PA Work Phone: [facility] 10-14-2024 09:38-0400 Respiratory rate 16 /min Candy Hemmer PA Work Phone: [facility] 10-14-2024 09:38-0400 SaO2% (BldA) [Mass fraction] 98 % Candy Hemmer PA Work Phone: [facility] 10-14-2024 09:38-0400 Systolic blood pressure 116 mm[Hg] Candy Hemmer PA Work Phone: [facility] 07-30-2024 15:05-0500 Body height 162.6 cm Candy Hemmer PA Work Phone: [facility] 07-30-2024 15:05-0500 Body mass index (BMI) [Ratio] 31.45 kg/m2 Candy Hemmer PA Work Phone: [facility] 07-30-2024 15:05-0500 Body weight 83.1 kg Candy Hemmer PA Work Phone: [facility] 07-30-2024 15:05-0500 Diastolic blood pressure 82 mm[Hg] Candy Hemmer PA Work Phone: [facility] 07-30-2024 15:05-0500 Heart rate 62 /min Candy Hemmer PA Work Phone: [facility] 07-30-2024 15:05-0500 Respiratory rate 16 /min Candy Hemmer PA Work Phone: [facility] 07-30-2024 15:05-0500 SaO2% (BldA) [Mass fraction] 97 % Candy Hemmer PA Work Phone: [facility] 07-30-2024 15:05-0500 Systolic blood pressure 112 mm[Hg] Candy Hemmer PA Work Phone: [facility] 03-31-2024 10:47-0400 Body height 162.6 cm Candy Hemmer PA Work Phone: [facility] 03-31-2024 10:47-0400 Body mass index (BMI) [Ratio] 31.31 kg/m2 Candy Hemmer PA Work Phone: [facility] 03-31-2024 10:47-0400 Body temperature 98.1 [degF] Candy Hemmer PA Work Phone: [facility] 03-31-2024 10:47-0400 Body weight 82.74 kg Candy Hemmer PA Work Phone: [facility] 03-31-2024 10:47-0400 Diastolic blood pressure 78 mm[Hg] Candy Hemmer PA Work Phone: [facility] 03-31-2024 10:47-0400 Heart rate 76 /min Candy Hemmer PA Work Phone: [facility] 03-31-2024 10:47-0400 Respiratory rate 16 /min Candy Hemmer PA Work Phone: [facility] 03-31-2024 10:47-0400 SaO2% (BldA) [Mass fraction] 98 % Candy Hemmer PA Work Phone: [facility] 03-31-2024 10:47-0400 Systolic blood pressure 129 mm[Hg] Candy Hemmer PA Work Phone: [facility] 08-15-2023 10:35-0500 Body mass index (BMI) [Ratio] 31.24 kg/m2 Candy Hemmer PA Work Phone: [facility] 08-15-2023 10:35-0500 Body weight 82.56 kg Candy Hemmer PA Work Phone: [facility] 08-15-2023 10:35-0500 Diastolic blood pressure 84 mm[Hg] Candy Hemmer PA Work Phone: [facility] 08-15-2023 10:35-0500 Heart rate 54 /min Candy Hemmer PA Work Phone: [facility] 08-15-2023 10:35-0500 Respiratory rate 16 /min Candy Hemmer PA Work Phone: [facility] 08-15-2023 10:35-0500 SaO2% (BldA) [Mass fraction] 99 % Candy PRUITT Work Phone: [facility] 08-15-2023 10:35-0500 Systolic blood pressure 132 mm[Hg] Candy Ofelia PRUITT Work Phone: [facility] 02-02-2022 07:00-0400 Body temperature 98.2 [degF] Ino Zev DO Work Phone: [employer] 02-02-2022 07:00-0400 Diastolic blood pressure 70 mm[Hg] Ino Brothers Work Phone: [employer] 02-02-2022 07:00-0400 Heart rate 66 /min Ino Zev BAER Work Phone: [employer] 02-02-2022 07:00-0400 Respiratory rate 16 /min Ino Zev BAER Work Phone: [employer] 02-02-2022 07:00-0400 Systolic blood pressure 124 mm[Hg] Ino Zev BAER Work Phone: [employer] 02-02-2022 02:50-0400 SaO2% (BldA) [Mass fraction] 94 % Ino Brothers DO Work Phone: [employer] 02-01-2022 06:23-0400 Body height 162.6 cm Ino Cadenamoiz BAER Work Phone: [employer] 02-01-2022 06:23-0400 Body mass index (BMI) [Ratio] 34.16 kg/m2 Ino Cadenamoiz BAER Work Phone: [employer] 02-01-2022 06:23-0400 Body weight 90.27 kg Ino Cadenamoiz BAER Work Phone: [employer] 01-22-2022 12:11-0400 Body height 162.6 cm Stcz 2 [employer] 01-22-2022 12:11-0400 Body mass index (BMI) [Ratio] 34.16 kg/m2 [facility] [employer] 01-22-2022 12:11-0400 Body temperature 97.7 [degF] [facility] [employer] 01-22-2022 12:11-0400 Body weight 90.27 kg [facility] [employer] 01-22-2022 12:11-0400 Diastolic blood pressure 77 mm[Hg] [facility] [employer] 01-22-2022 12:11-0400 Heart rate 63 /min [facility] 2 [facility] [employer] 01-22-2022 12:11-0400 Respiratory rate 16 /min [facility] 2 [facility] [employer] 01-22-2022 12:11-0400 SaO2% (BldA) [Mass fraction] 100 % [facility] 01-22-2022 12:11-0400 Systolic blood pressure 131 mm[Hg] [facility] 2 [facility] [employer] 09-29-2021 10:35-0400 Body temperature 97.5 [degF] Constantine Sanchez MD Work Phone: [facility] 09-29-2021 10:35-0400 Diastolic blood pressure 58 mm[Hg] Constantine Sanchez MD Work Phone: [facility] 09-29-2021 10:35-0400 Heart rate 58 /min Constantine Sanchez MD Work Phone: [facility] 09-29-2021 10:35-0400 Respiratory rate 12 /min Constantine Sanchez MD Work Phone: [facility] 09-29-2021 10:35-0400 SaO2% (BldA) [Mass fraction] 98 % Constantine Sanchez MD Work Phone: [facility] 09-29-2021 10:35-0400 Systolic blood pressure 92 mm[Hg] Constantine Sanchez MD Work Phone: [facility] 09-29-2021 07:46-0400 Body height 160 cm Constantine Sanchez MD Work Phone: [facility] 09-29-2021 07:46-0400 Body mass index (BMI) [Ratio] 34.37 kg/m2 Constantine Sanchez MD Work Phone: [facility] 09-29-2021 07:46-0400 Body weight 88 kg Constantine Sanchez MD Work Phone: [facility] 09-15-2021 10:28-0500 Body height 160 cm Stcz 3 [facility] Encounters Encounter Date Encounter Type Care Provider Facility Start: 11-24-2024 End: 11-24-2024 ambulatory [facility] Start: 11-24-2024 End: 11-24-2024 Encounter for gynecological examination (general) (routine) without abnormal findings [facility] Start: 11-24-2024 End: 11-24-2024 Subsequent hospital visit by physician Candy Gee PA-C Work Phone: [facility] Start: 11-20-2024 End: 11-20-2024 Office outpatient new 45 minutes Chana Hurtado MD Work Phone: [facility], A Department of [facility] Comment on above: Acquired hypothyroid ism (Primary Dx) Start: 11-20-2024 ambulatory CHANA HURTADO [facility] Start: 10-14-2024 End: 10-14-2024 Bamboo flowsheet [...] Not Available Start: 10-13-2024 End: 10-13-2024 ambulatory [facility] Start: 08-20-2024 ambulatory [facility] Facility:[facility] Start: 08-20-2024 End: 08-20-2024 Subsequent hospital visit by physician [facility] (Istat/1.5t) Work Phone: [facility] Start: 08-04-2024 End: 08-04-2024 ambulatory [facility] Start: 07-30-2024 End: 07-30-2024 Office outpatient [...] Department Unsolicited Start: 06-24-2024 End: 06-24-2024 ambulatory [facility] Start: 05-20-2024 End: 05-20-2024 ambulatory [facility] Start: 04-24-2024 End: 04-26-2024 ambulatory SAMANTHA WEAVER [facility] Start: 04-24-2024 End: 04-26-2024 Subsequent hospital visit by physician Austin Newton [facility] Comment on above: Encounter for screen [...] 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 Candy Gee PA Work Phone: [facility] [...] with diarrhea; Schatzki's ring of distal esophagus; [place]-Walker grade 3 cystocele; Cystocele, midline; Enlarged uterus; [...] Subsequent hospital visit by physician Austin Hopson [facility] Comment on above: Post-menopausal Start: 02-01-2022 End: 02-02-2022 Evaluation and management of inpatient Ino Brothers DO Work Phone: [facility] Comment on above: Cystocele, unspecifi ed (CODE) Start: 01-22-2022 End: 01-24-2022 Subsequent hospital visit by physician Austin Xr Room 4 [facility] Radiology Comment on above: Arrived Start: 01-22-2022 End: 01-26-2022 Patient encounter status [facility] 2 [facility] Pre-Admit Testing Start: 01-22-2022 End: 01-26-2022 Subsequent hospital visit by physician Mamta Jeronimo 2 [facility] Pre-Admit Testing Comment on above: Pre-op testing Start: 12-27-2021 End: 12-27-2021 Subsequent hospital visit by physician Candy Gee Work Phone: [email or web address] Laboratory Comment on above: Overflow incontinenc e Start: 12-25-2021 End: 12-27-2021 Subsequent hospital visit by physician [facility] Mammo Rm 119 [facility] Mammography Comment on above: Encounter for [...] hospital visit by physician Mamta Pat 3 [facility] [[email or web address] Pre-Admit Testing Start: 12-14-2020 End: 12-16-2020 Subsequent hospital visit by physician [facility] Mammo Rm 119 [facility] Mammography Comment on above: Visit for screening mammogram Start: 06-15-2019 End: 06-15-2019 Subsequent hospital visit by physician Candy Gee Work Phone: [facility] [[email or web address] Laboratory Start: 07-23-2017 End: 07-23-2017 Ambulatory CANDY GEE Facility:[place] Procedures Date Procedure Procedure Detail Performing Clinician [...] et rgnt auto w/o microscopy Ino Estrellita Brothers DO Work Phone: Start: 12-25-2021 Screening [...] RSV Vaccine (1 - 1-dose 75+ series) [facility] Start: 01-21-2028 Screening for malignant neoplasm of colon [facility] Start: 11-22-2027 Screening for malignant neoplasm of cervix [facility] Start: 04-24-2026 Screening for malignant neoplasm of breast Breast cancer screen [facility] Start: 11-24-2025 Depression Screen Depression Screen [facility] Start: 11-24-2025 End: 11-24-2025 Patient encounter procedure 11/24/2025 9:00 AM EDT Off ice Visit [facility] [address] [facility] [address] [place] [phone] Samantha Weaver APRN - [employer] INSPECTOR [address] [address] annual [facility] Comment on above: annual Start: 11-21-2025 Screening for malignant neoplasm of cervix Pap Smear [facility] Start: 09-05-2025 [facility] Start: 04-24-2025 Screening for malignant neoplasm of breast [facility] Start: 04-12-2025 Screening for malignant neoplasm of breast Breast cancer screen [facility] Start: 04-08-2025 End: 04-08-2025 Admission to same day surgery center 04/08/2025 12:00 PM EDT - 04/08/2025 12:30 PM EDT [place] [facility] [place] [address] [place] [address] Constantine Sanchez MD [address] [place] [address] ESOPHAGOGASTRODUODENOSCOPY BIOPSY [facility] Comment on above: ESOPHAGOGASTRODUODENOSCOPY BIOPSY Start: 04-08-2025 End: 04-08-2025 Egd transoral biopsy single/multiple ESOPHAGOGASTRODUODENOSCOPY BIOPSY EE (eosinophilic esophagitis) Diverticulosis of colon Weight loss Gastric mass GERD (gastroesophageal reflux disease) 04/08/2025 12:00 PM EDT [facility] Start: 04-08-2025 Subsequent hospital visit by physician 04/08/2025 12:00 [place] [address] [place] [address] Constantine Sanchez MD [address] [place] [address] [facility] Start: 03-08-2025 Influenza vaccination [facility] Start: 01-22-2025 Diabetes Screening Diabetes Screening [facility] Start: 11-24-2024 Depression Screen Depression Screen [facility] Start: 11-24-2024 End: 11-24-2024 Patient encounter procedure 11/24/2024 9:00 AM EDT Off ice Visit [facility] [address] [phone] Samantha Weaver APRN - CINDY [address] [address] annual [facility] Comment on above: annual Start: 11-23-2024 Screening for malignant neoplasm of cervix [facility] Start: 10-14-2024 End: 10-14-2025 Alpha fetoprotein, L3 percent Alpha fetoprotein, L3 pe rcent Lab Routine Abnormal finding on imaging of liver Hepatic lesion Expected: 10/14/2024 (Approximate), Expires: 10/14/2025 [facility] Comment on above: Expected: 10/14/2024 (Approximate), Expi res: 10/14/2025 Start: 10-14-2024 End: 10-14-2025 Cobalamin (Vitamin B12) [Mass/volume] in Serum or Plasma Vitamin B12 Lab Routine Vitamin B-complex deficiency Expected: 10/14/2024 (Approximate), Expires: 10/14/2025 [facility] Comment on above: Expected: 10/14/2024 (Approximate), Expi res: 10/14/2025 Start: 10-14-2024 End: 10-14-2025 Creatinine [Mass/volume] in Serum or Plasma Creatinine, Serum Lab Routine Abnormal finding on imaging of liver Hepatic lesion Hypokalemia Expected: 10/14/2024 (Approximate), Expires: 10/14/2025 [facility] Comment on above: Expected: 10/14/2024 (Approximate), Expi res: 10/14/2025 Start: 10-14-2024 End: 10-14-2025 CT Abdomen and Pelvis W contrast IV CT abdomen pelvis w IV contrast Imaging Routine Abnormal finding on imaging of liver Hepatic lesion Expected: 10/14/2024, Expires: 10/14/2025 [facility] Work Phone: Comment on above: Expected: 10/14/2024, Expires: Start: 10-14-2024 End: 10-14-2024 Patient encounter procedure 10/14/2024 9:30 AM EDT Off ice Visit [facility] [address] [facility] [address] [place] [phone] Candy Gee PA [address] [facility] [address] [place] [address] Arrived [facility] Comment on above: Arrived Start: 10-01-2024 Administration of varicella zoster vaccine Zoster (Shingles) Vaccine (2 of 3) [facility] Start: 09-29-2024 Screening for malignant neoplasm of colon [facility] Start: 07-30-2024 End: 07-30-2024 Patient encounter procedure 07/30/2024 3:00 PM EST Off ice Visit [facility] [address] [facility] [address] [place] [phone] Candy Gee PA [address] [facility] [address] [place] [address] Arrived [facility] Comment on above: Arrived Start: 07-30-2024 End: 07-30-2025 XR Thoracic spine 4 Views XR thoracic spine complete 4 + views Imaging Routine 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 or radiculopathy Thoracic spine pain Expected: 07/30/2024, Expires: 07/30/2025 [facility] Work Phone: Comment on above: Expected: 07/30/2024, Expires: Start: 04-12-2024 Screening for malignant neoplasm of breast Mammogram [facility] Start: 03-31-2024 End: 03-31-2025 Holter monitor study Holter monitor Imaging Routi ne Palpitation Shortness of breath Expected: 03/31/2024 (Approximate), Expires: 03/31/2025 [facility] Work Phone: Comment on above: Expected: 03/31/2024 (Approximate), Expi res: 03/31/2025 Start: 03-08-2024 COVID-19 Vaccine ( season) COVID-19 Vaccine ( season) [facility] Start: 03-08-2024 Covid-19 Vaccine ( season) Covid-19 Vaccine ( season) [facility] Start: 03-08-2024 Influenza vaccination Influenza Vaccine (#1) [facility] Start: 02-13-2024 End: 02-13-2024 Patient encounter procedure 02/13/2024 10:00 AM EDT Of fice Visit [facility] [address] [place] [address] [place] [address] Candy Gee PA [address] [facility] [address] [place] [address] [facility] Start: 02-06-2024 Influenza vaccination Flu vaccine (#1) [facility] Start: 01-22-2024 DTaP,Tdap and Td Vaccines (2 - Td or Tdap) DTaP,Tdap and Td Vaccines (2 - Td or Tdap) [facility] Start: 01-22-2024 DTaP/Tdap/Td vaccine (2 - Td or Tdap) DTaP/Tdap/Td vaccine (2 - Td or Tdap) [facility] Start: 01-22-2024 Urine microalbumin profile DTaP,Tdap,Td Vaccine (2 - T d or Tdap) [facility] Start: 12-26-2023 Screening for malignant neoplasm of breast Breast cancer screen [facility] Start: 09-26-2023 End: 08-15-2024 Triiodothyronine (T3) Free [Mass/volume] in Serum or Plasma T3, free Lab Routine Acquired hypothyroidism (CMS/HCC) 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) Expected: 09/26/2023 (Approximate), Expires: 08/15/2024 [facility] Comment on above: Expected: 09/26/2023 (Approximate), Expi res: 08/15/2024 Start: 09-19-2023 End: 08-15-2024 Thyrotropin [Units/volume] in Serum or Plasma TSH Lab Routine Acquired hypothyroidism (CMS/HCC) 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) Expected: 09/19/2023 (Approximate), Expires: 08/15/2024 [facility] Comment on above: Expected: 09/19/2023 (Approximate), Expi res: 08/15/2024 Start: 09-19-2023 End: 08-15-2024 Thyroxine (T4) free [Mass/volume] in Serum or Plasma T4, free Lab Routine Acquired hypothyroidism (CMS/HCC) 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) Expected: 09/19/2023 (Approximate), Expires: 08/15/2024 [facility] Comment on above: Expected: 09/19/2023 (Approximate), Expi res: 08/15/2024 Start: 08-15-2023 End: 08-15-2024 25-hydroxyvitamin D3 [Mass/volume] in Serum or Plasma Vitamin D 25 hydroxy Lab Routine Wellness examination Vitamin D deficiency Expected: 08/15/2023 (Approximate), Expires: 08/15/2024 [facility] Comment on above: Expected: 08/15/2023 (Approximate), Expi res: 08/15/2024 Start: 08-15-2023 End: 08-15-2024 CBC W Auto Differential panel - Blood CBC and differential Lab Routine Wellness examination Other specified disorders involving the immune mechanism, 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) Bruises easily Chronic fatigue Expected: 08/15/2023 (Approximate), Expires: 08/15/2024 [facility] Work Phone: Comment on above: Expected: 08/15/2023 (Approximate), Expi res: 08/15/2024 Start: 08-15-2023 End: 08-15-2024 Cobalamin (Vitamin B12) [Mass/volume] in Serum or Plasma Vitamin B12 Lab Routine Wellness examination Vitamin B-complex deficiency Expected: 08/15/2023 (Approximate), Expires: 08/15/2024 [facility] Comment on above: Expected: 08/15/2023 (Approximate), Expi res: 08/15/2024 Start: 08-15-2023 End: 08-15-2024 Comprehensive metabolic 2000 panel - Serum or Plasma Comprehensive metabolic panel Lab Routine Wellness examination Chronic fatigue Hypokalemia Lipoprotein deficiency disorder (CMS/HCC) Expected: 08/15/2023 (Approximate), Expires: 08/15/2024 [facility] Comment on above: Expected: 08/15/2023 (Approximate), Expi res: 08/15/2024 Start: 08-15-2023 End: 08-15-2024 Lipid 1996 panel - Serum or Plasma Lipid panel Lab Routine Wellness examination Lipoprotein deficiency disorder (CMS/HCC) Expected: 08/15/2023 (Approximate), Expires: 08/15/2024 [facility] Comment on above: Expected: 08/15/2023 (Approximate), Expi res: 08/15/2024 Start: 08-15-2023 End: 08-15-2024 Thyrotropin [Units/volume] in Serum or Plasma TSH Lab Routine Wellness examination Acquired hypothyroidism (CMS/HCC) 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) Expected: 08/15/2023 (Approximate), Expires: 08/15/2024 [facility] Comment on above: Expected: 08/15/2023 (Approximate), Expi res: 08/15/2024 Start: 08-15-2023 End: 08-15-2024 Thyroxine (T4) free [Mass/volume] in Serum or Plasma T4, free Lab Routine Wellness examination Acquired hypothyroidism (CMS/HCC) 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) Expected: 08/15/2023 (Approximate), Expires: 08/15/2024 [facility] Comment on above: Expected: 08/15/2023 (Approximate), Expi res: 08/15/2024 Start: 08-15-2023 End: 08-15-2024 Triiodothyronine (T3) Free [Mass/volume] in Serum or Plasma T3, free Lab Routine Wellness examination Acquired hypothyroidism (CMS/HCC) 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) Expected: 08/15/2023 (Approximate), Expires: 08/15/2024 [facility] Comment on above: Expected: 08/15/2023 (Approximate), Expi res: 08/15/2024 Start: 08-15-2023 End: 08-15-2023 Patient encounter procedure [facility] Comment on above: Arrived Start: 07-28-2023 Screening for malignant neoplasm of cervix [facility] Start: 04-23-2023 Adult BMI Screening Adult BMI Screening [facility] Start: 03-08-2023 Influenza vaccination Influenza Vaccine (#1) [facility] Start: 12-14-2022 Screening for malignant neoplasm of breast Breast cancer screen [facility] Start: 2022 Respiratory Syncytial Virus (RSV) or age 60 yrs+ (1 - 1-dose 60+ series) Respiratory Syncytial Virus (RSV) or age 60 yrs+ (1 - 1-dose 60+ series) [facility] Start: 2022 Respiratory Syncytial Virus (RSV) or age 60 yrs+ (1 - Risk 60-74 years 1-dose series) Respiratory Syncytial Virus (RSV) or age 60 yrs+ (1 - Risk 60-74 years 1-dose series) [facility] Start: 07-24-2022 End: 07-24-2022 Patient encounter procedure 07/24/2022 Office Visit Obstetrics and Gynecology Ino Brothers, [address] [place] [address] [facility] Start: 06-22-2022 End: 06-22-2022 Patient encounter procedure 06/22/2022 Office Visit Urology Samy Resendez MD [address] [place] [address] [facility] Start: 03-08-2022 Influenza vaccination [facility] Start: 02-20-2022 End: 02-20-2022 Patient encounter procedure 02/20/2022 Office Visit Obstetrics and Gynecology Ino Brothers, [address] [place] [address] [facility] Start: 02-01-2022 End: 02-01-2022 Admission to same day surgery center 02/01/2022 Surgery IP Unit Ino Brothers, [address] [place] [address] VAGINAL ANTERIOR REPAIR [facility] Comment on above: VAGINAL ANTERIOR REPAIR Start: 02-01-2022 End: 02-01-2022 Anterior colporraphy rpr cystocele w/cysto VAGINAL ANTERIOR REPAIR Cystocele, unspecified (CODE) 02/01/2022 8:00 AM EDT [facility] Start: 02-01-2022 Subsequent hospital visit by physician 02/01/2022 Hospital Encounter IP Unit Ino Brothers DO [address] [facility], [address] [place] [address] [facility] Start: 12-29-2021 End: 12-29-2021 Patient encounter procedure 12/29/2021 Office Visit Urology Samy Resendez MD [address] [place] [address] [facility] Start: 09-29-2021 End: 09-29-2021 Admission to same day surgery center 09/29/2021 Surgery Endoscopy Constantine Sanchez MD [address] [facility], [address] [place] [address] EGD [facility] Comment on above: EGD Start: 09-29-2021 End: 09-29-2021 Colonoscopy flx dx w/collj spec when pfrmd [facility] Start: 09-29-2021 End: 09-29-2021 Esophagogastroduodenoscopy transoral diagnostic [facility] Start: 09-29-2021 Subsequent hospital visit by physician 09/29/2021 Hospital Encounter Endoscopy Constantine Sanchez MD [address] [facility], [address] [place] [address] [facility] Start: 09-25-2021 End: 09-22-2022 COVID-19 [facility] [employer] Work Phone: Comment on above: Expected: 09/25/2021, Expires: 3 Once for 1 Occurrenc es starting 09/25/2021 until 09/25/2021 Start: 09-25-2021 End: 09-25-2021 Patient encounter procedure 09/25/2021 Appointment Lab [facility] Covid Screening Start: 07-28-2021 Screening for malignant neoplasm of cervix [facility] [employer] Start: 03-08-2021 Influenza vaccination [facility] [employer] Start: 01-20-2021 Colon cancer screen colonoscopy Colon cancer screen colonoscopy [facility] Work Phone: Start: 01-20-2021 Screening for malignant neoplasm of colon [facility] [employer] Start: 08-11-2020 Breast cancer screen Breast cancer screen [facility] Phone: Start: 06-15-2020 Thyroid stimulating hormone measurement TSH testing [facility] [employer] Start: 01-15-2020 TSH testing TSH testing [employer] Phone: Start: 07-28-2019 Cervical cancer screen Cervical cancer screen [employer] Phone: Start: 07-28-2019 Screening for malignant neoplasm of cervix Cervical cancer screen [employer] Phone: Start: 03-08-2019 Influenza vaccination Flu vaccine (#1) [employer] Phone: Start: 01-20-2019 Screening for malignant neoplasm of colon [facility] Start: 11-16-2018 Diabetes screen Diabetes screen [facility] [employer] Start: 2012 Pneumococcal 50+ years Vaccine (1 of 1 - PCV) Pneumococcal 50+ years Vaccine (1 of 1 - PCV) [facility] Start: 2012 Pneumococcal Vaccine: 50+ (1 of 1 - PCV) Pneumococcal Vaccine: 50+ (1 of 1 - PCV) [facility] Start: 2012 Shingles Vaccine (1 of 2) Shingles Vaccine (1 of 2) [facility] Start: 2012 Shingrix Vaccine (1 of 2) Shingrix Vaccine (1 of 2) [facility] Start: 10-29-2007 Lipid panel Lipid Screening [facility] Start: 10-29-2007 Screening for malignant neoplasm of colon [facility] Start: 2002 Lipid panel [facility] [employer] Start: 2002 [facility] Start: 1981 DTaP/Tdap/Td vaccine (1 - Tdap) DTaP/Tdap/Td vaccine (1 - Tdap) [employer] Phone: Start: 1980 Adult BMI Follow Up Plan Adult BMI Follow Up Plan [facility] Start: 1980 Anxiety Screening Anxiety Screening [facility] Start: 1980 Depression Screening Depression Screening [facility] Start: 1980 Hepatitis C screening Hepatitis C Screening [facility] Start: 1980 HIV screening HIV Screening [facility] Start: 1974 COVID-19 Vaccine (1) COVID-19 Vaccine (1) [facility] Phone: Start: 1974 Depression Screen Depression Screen [facility] [employer] Start: 1974 Depression Screening Depression Screening [facility] Start: 1974 Tobacco Screening Tobacco Screening [facility] Start: 1973 DTaP/Tdap/Td vaccine (1 - Tdap) DTaP/Tdap/Td vaccine (1 - Tdap) [employer] Phone: Start: 10-29-1967 COVID-19 Vaccine (1) COVID-19 Vaccine (1) [facility] Start: 04-29-1963 COVID-19 Vaccine (#1) COVID-19 Vaccine (#1) [employer] Start: 1962 Screening for malignant neoplasm of colon [facility] 25-hydroxyvitamin D3 [Mass/volume] in Serum or Plasma Vitamin D 25 hydroxy Total Lab Routine Vitamin D deficiency Ordered: 10/14/2024 [facility] Comment on above: Ordered: 10/14/2024 CBC W Auto Different ial panel - Blood CBC and differential Lab Routine Vitamin B-complex deficiency Elevated LDL cholesterol level (CMS/HCC) PSVT (paroxysmal supraventricular tachycardia) (CMS/HCC) Ordered: 10/14/2024 [facility] Comment on above: Ordered: 10/14/2024 Comprehensive metabo lic 2000 panel - Serum or Plasma Comprehensive metabolic panel Lab Routine Abnormal finding on imaging of liver Hepatic lesion Hypokalemia Elevated LDL cholesterol level (CMS/HCC) PSVT (paroxysmal supraventricular tachycardia) (CMS/HCC) Ordered: 10/14/2024 [facility] Comment on above: Ordered: 10/14/2024 End: 04-24-2024 DBT Breast - bilateral screening [facility] Comment on above: 1 Occurrences starting 04/24/2024 until 04/24/2024 End: 09-29-2021 INITIATE PACU OXYGEN THERAPY PROTOCOL Initiate PACU Oxygen Therapy Protocol Respiratory Care Routine Continuous until discontinued starting 09/29/2021 [employer] Phone: Comment on above: Continuous until discontinued starting 0 09/29/2021 End: 02-01-2022 INITIATE PACU OXYGEN THERAPY PROTOCOL Initiate PACU Oxygen Therapy Protocol Respiratory Care Routine Continuous until discontinued starting 02/01/2022 [employer] Phone: Comment on above: Continuous until discontinued starting 0 02/01/2022 Lipid 1996 panel - S nell or Plasma Lipid panel Lab Routine Elevated LDL cholesterol level (CMS/HCC) PSVT (paroxysmal supraventricular tachycardia) ([facility]/HCC) Ordered: 10/14/2024 [facility] Comment on above: Ordered: 10/14/2024 Oxygen therapy [Mini mum Data Set] Initiate Oxygen Therapy Protocol Respiratory Care Routine As Needed until discontinued starting 09/29/2021 [employer] Phone: Comment on above: As Needed until discontinued starting Oxygen therapy [Mini mum Data Set] Initiate Oxygen Therapy Protocol Respiratory Care Routine As Needed until discontinued starting 02/01/2022 [employer] Phone: Comment on above: As Needed until discontinued starting Surgical Pathology Surgical Path ology Lab Routine Release Upon Ordering for 1 Occurrences starting 09/29/2021 [employer] Phone: Comment on above: Release Upon Ordering for 1 Occurrences starting 09/29/2021 Surgical Pathology Surgical Path ology Lab Routine Cystocele, unspecified (CODE) Release Upon Ordering for 1 Occurrences starting 02/01/2022 [employer] Phone: Comment on above: Release Upon Ordering for 1 Occurrences starting 02/01/2022 End: 02-01-2022 SURGICAL PATHOLOGY REPORT SURGICAL PATHOLOGY REPORT La b Routine Once for 1 Occurrences starting 02/01/2022 until 02/01/2022 [employer] Phone: Comment on above: Once for 1 Occurrences starting 02/02/20 until 02/01/2022 End: 06-15-2019 Thyroid Stimulating Receptor Antibody Thyroid Stimulating Receptor Antibody Lab Routine Once for 1 Occurrences starting 06/15/2019 until 06/15/2019 [employer] Phone: Comment on above: Once for 1 Occurrences starting 06/15/20 until 06/15/2019 Thyroid Stimulating Receptor Antibody Thyroid Stimulating Receptor Antibody Lab Routine 06/15/2019 11:37 AM EST [employer] Phone: End: 11-20-2025 Thyrotropin [Units/volume] in Serum or Plasma TSH Lab Routine Acquired hypothyroidism 6 weeks for 6 Occurrences starting 11/20/2024 until 11/20/2025 [employer] Comment on above: 6 weeks for 6 Occurrences starting 11/20 until 11/20/2025 End: 11-20-2025 Thyroxine (T4) free [Mass/volume] in Serum or Plasma T4, free Lab Routine Acquired hypothyroidism 6 weeks for 6 Occurrences starting 11/20/2024 until 11/20/2025 [employer] Comment on above: 6 weeks for 6 Occurrences starting 11/20 until 11/20/2025 End: 11-20-2025 Triiodothyronine (T3) Free [Mass/volume] in Serum or Plasma T3, free Lab Routine Acquired hypothyroidism 6 weeks for 6 Occurrences starting 11/20/2024 until 11/20/2025 [employer] Work Phone: Comment on above: 6 weeks for 6 Occurrences starting 11/20 until 11/20/2025 TSH W/REFLEX TO FT4 TSH W/REFLEX TO FT4 Lab Routine Acquired hypothyroidism (CMS/HCC) Ordered: 10/14/2024 [facility] Comment on above: Ordered: 10/14/2024 Immunizations Immunization Date Immunization Notes Care Provider Fa [facility] 08-06-2024 zoster vaccine, unspecified formulation Chana Hurtado MD Work Phone: [employer] 06-25-2024 influenza virus vaccine, unspecified formulation [facility]urtado MD [facility] 01-21-2014 tetanus toxoid, redu sukhdev diphtheria toxoid, and acellular pertussis vaccine, adsorbed Candy Hemmer Work Phone: [employer] Work Phone: Payers Date Payer Category Payer Unknown [id number] 2018 [employer] [place] [employer] Shield [id number] 2018 Blue [place] Blue [facility] Managed Care - Other ANTHEM [id number] 2018 Unknown BCBS BCBS xxxxxx [id number] 2018-Present [phone] [id number] [place] [id number] 2018 Unknown [id number] 2016 Unknown [id number] 2016 Unknown BCBS BCBS - [place] P PO xxxxxxxxxxxxxxx 2016-Present [address] [place] [address] xxxxxxxxxxxxxxx [id number] 1962 Unknown [id number] 1962 Unknown [id number] 1962 Unknown [id number] 1962 Unknown [id number] 1962 Unknown [id number] 1962 Unknown [id number] 1962 Unknown [id number] 1962 Unknown [id number] Social History Date Type Detail Facility Start: 12-14-2020 End: 11-21-2022 Tobacco smoking status [facility] Never smoker [employer] Phone: Start: 12-14-2020 End: 11-21-2022 Tobacco use and exposure Never used [facility] Start: 12-14-2020 End: 11-20-2024 Alcohol intake Current non-drinker of alcohol (finding) [employer] Phone: Start: 12-14-2020 End: 11-24-2024 Alcohol intake [facility] Start: 1960 Sex Assigned At Not on file [employer] Phone: Start: 08-16-2021 End: 02-01-2022 Exposure to SARS-CoV-2 (event) Not sure [employer] Phone: Start: 07-10-2023 End: 10-14-2024 Alcohol intake Ex-drinker (finding) [facility] Start: 12-19-2022 End: 11-24-2024 Humiliation, Afraid, Rape, and Kick questionnaire [HARK] [facility] Within the last year , have you been afraid of your partner or ex-partner? Patient refused [facility] Are you now , , , , never or living with a partner? [facility] Start: 02-08-2023 Alcohol Comment Caffeine intake: coffeee [facility] Start: 04-24-2024 End: 11-24-2024 Alcoholic beverage intake Lifetime non-drinker (finding) [facility] Start: 11-21-2022 Tobacco Comment I have answered this countless times. [facility] Start: 12-21-2021 Gender identity Identifies as female gender (finding) [facility] Tobacco smoking stat [facility] Tobacco smoking consumption unknown [facility] Do you belong to any clubs or organizations such as christian groups, unions, fraternal or athletic groups, or school groups? Yes [facility] How often to you hav e a drink containing alcohol? Never [facility] Do you feel stress - tense, restless, nervous, or anxious, or unable to sleep at night because your mind is troubled all the time - these days [OSQ] Not at all [employer] Start: 08-17-2012 End: 02-10-2015 Sex Female (finding) [facility] Goals Date Patient Goal [...] hormone replacement since. She had been on HYPNOTHERAPIST Thyroid in the remote past and overall [...] Sent to Testing to be performed at [facility]. COVID-19 [facility] Labs Report to Follow. SARS COV 2 by PCR Collection Time: 04/05/21 4:21 PM [facility]~Serum specimen Result Value Ref [...] fact that patient has felt better on Leary thyroid in the past, I will switch levothyroxine to a combination of Leary thyroid plus levothyroxine. I am starting her on 60 mg Leary thyroid along with 50 mcg levothyroxine and repeat thyroid labs in 6 weeks time. Will keep adjusting levothyroxine dose based on q.6 weeks lab results. We discussed holding biotin supplements for 3 days prior to thyroid lab draw. We discussed the importance of taking thyroid hormone replacement on an empty stomach and very consistently. RETURN TO CLINIC: 6 months documented in this encounter [facility] 10-14-2024 History of Present illness Narrative Images [...] been having weight loss without trying and janitorial cleaner is concerned. Current Outpatient Medications on File [...] FT4 Seeing Endocrinology on November 20 in [place], Dr. Chana Hurtado. Her TSH has been [...] Lipid panel The patient is seeing a medical office technologist for this condition, treatment is deferred to that specialist. Correspondence from that specialist and any available testing were reviewed during today's visit. Tubular adenoma Patient has contacted Dr. Constantine Sanchez's office in [place], will getting an updated Colonoscopy, scheduled to see him in December, but is on a cancellation list. Follow up for Wellness. documented in this encounter [facility] 10-13-2024 Note [place] [facility] Reason for visit: Palpitations/shortness of breath [...] the past and had been evaluated at [facility] also. She had initially battled COVID infection [...] Use: Not At Risk (04/05/2021) Received from [employer] AUDIT-C Frequency of Alcohol Consumption: Never Average Number of Drinks: Not on file Frequency of Binge Drinking: Never Financial Resource Strain: Low Risk (04/05/2021) Received from [employer] Overall Financial Resource Strain (CARDIA) Difficulty of Paying Living Expenses: Not hard at all Food Insecurity: Not on file Transportation Needs: No Transportation Needs (04/05/2021) Received from [employer], [employer] PRAPARE - Transportation Lack of Transportation (Medical): No Lack of Transportation (Non-Medical): No Physical Activity: Unknown (12/19/2022) Received from [employer] [facility] Exercise Vital Sign Days of Exercise per Week: 6 days Minutes of Exercise per Session: Not on file Stress: No Stress Concern Present (04/05/2021) Received from [employer] [place] [employer] - Occupational Stress Questionnaire Feeling of Stress : Not at all Social Connections: Unknown (12/19/2022) Received from [employer] [facility] Social Connection and Isolation Panel [NHANES] Frequency of Communication with Friends and Family: Not on file Frequency of Social Gatherings with Friends and Family: Not on file Attends Episcopal Services: Not on file Active Member of Clubs or Organizations: Patient declined Attends Club or Organization Meetings: Patient declined Marital Status: Intimate Partner Violence: Unknown (08/29/2023) [place] Fear of Current or Ex-Partner: Not on file Emotionally Abused: Not on file Physically Abused: Not on file Sexually Abused: Not on file Physically or Sexually Abused: Not on file Depression: Not at risk (07/30/2024) Received from [facility] PHQ-2 Patient Health Questionnaire-2 Score: 0 Housing [...] daily. 60 tabl (more content not included)... [facility] 08-20-2024 History of Present illness Narrative Radiology [...] PATIENT PRESENTS WITH AN IMPLANTABLE OR ATTACHED MICROBIOLOGY INSTRUCTOR: No RADIOLOGY DEPARTMENT: MR; Exam(s) Completed: Cardiac: Cardiac PERIPHERAL IV DATA: Site assessment: Clean,Dry and Intact, Site disposition Discontinued pt sts no allergy to contrast SIGNED BY: RT Amy(R) August 20, 2024 11:29 AM documented in this encounter [facility] 08-20-2024 Note HNO ID: [id number] Author: KARLENE WASHBURN RN Service: Radiology Author [...] Chloride. Patient screened negative for MRI incompatibilities. [facility] 08-20-2024 Note HNO ID: [id number] Author: DENICE FOURNIER RT(R) Service: Radiology Author Type: Videotape Sales Representative Type: Progress Notes Filed: 08/20/2024 11:30 Note [...] PATIENT PRESENTS WITH AN IMPLANTABLE OR ATTACHED MICROBIOLOGY INSTRUCTOR: No RADIOLOGY DEPARTMENT: MR; Exam(s) Completed: Cardiac: Cardiac PERIPHERAL IV DATA: Site assessment: Clean,Dry and Intact, Site disposition Discontinued pt sts no allergy to contrast SIGNED BY: RT Amy(R) August 20, 2024 11:29 AM [facility] 08-04-2024 Note [place] Electrophys[place] Consult [place] [facility] Reason for visit: Palpitations/shortness of breath HPI: Chester Negro is a 63 y.o. year old with past medical history of hypothyroidism, history of eosinophilic esophagitis, diastolic dysfunction has been experiencing palpitation for some time she had been seen by Dr. VERA in the past and had been evaluated at [facility] also. She had initially battled COVID infection [...] Tobacco Use: Low Risk (07/30/2024) Received from [employer] Patient History Smoking Tobacco Use: Never Smokeless Tobacco Use: Never Passive Exposure: Not on file Alcohol Use: Not At Risk (04/05/2021) Received from [employer] [facility] [employer] AUDIT-C Frequency of Alcohol Consumption: Never Average Number of Drinks: Not on file Frequency of Binge Drinking: Never Financial Resource Strain: Low Risk (04/05/2021) Received from [employer] [facility] [employer] [facility] Overall Financial Resource Strain (CARDIA) Difficulty of Paying Living Expenses: Not hard at all Food Insecurity: Not on file Transportation Needs: No Transportation Needs (04/05/2021) [facility] [employer] [facility] - Transportation Lack of Transportation (Medical): No Lack of Transportation (Non-Medical): No Physical Activity: Unknown (12/19/2022) Received from [employer] [facility] Exercise Vital Sign Days of Exercise per Week: 6 days Minutes of Exercise per Session: Not on file Stress: No Stress Concern Present (04/05/2021) [facility] [employer] [facility] [employer] [place] [employer] - Occupational Stress Questionnaire Feeling of Stress : Not at all Social Connections: Unknown (12/19/2022) Received from [employer] [facility] Social Connection and Isolation Panel [NHANES] Frequency of Communication with Friends and Family: Not on file Frequency of Social Gatherings with Friends and Family: Not on file Attends Episcopal Services: Not on file Active Member of Clubs or Organizations: Patient declined Attends Club or Organization Meetings: Patient declined Marital Status: Intimate Partner Violence: Unknown (08/29/2023) [place] Fear of Current or Ex-Partner: Not on file Emotionally Abused: Not on file Physically Abused: Not on file Sexually Abused: Not on file Physically or Sexually Abused: Not on file Depression: Not at risk (07/30/2024) Received from [facility] PHQ-2 Patient Health Questionnaire-2 Score: 0 Housing [...] 3 dapagliflozin propaned (more content not included)... [facility] 07-30-2024 History of Present illness Narrative Images [...] fail to improve. documented in this encounter [facility] 06-24-2024 Note [facility] Cardiology Clinic Note Chief Complaint: Patient here for follow up echo and stress test. She was started on metoprolol at last visit and thinks it's helping to lessen the palpitations. She can tell when the next dose is due. HPI: Chester Negro is a 63 y.o. female With a longstanding history of palpitations. She was seen years ago by janitorial cleaner in [place]. She underwent a number of tests. She [...] denies illicit drugs. 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 Family history: Heart heart father of a [...] regurgitation or stenosis. Nuc stress Lexiscan Order: [id number] Narrative Chest pain radiating to jaw for [...] by Albaro Osei, (more content not included)... [facility] 05-20-2024 Note [facility] Cardiology Clinic Note Chief Complaint: New patient here to establish care. She wore 2 week Holter monitor last month for palpitations, SOB, and lightheadedness. She denies chest pain. HPI: Chester Negro is a 63 y.o. female With a longstanding history of palpitations. She was seen years ago by janitorial cleaner in [place]. She underwent a number of tests. She [...] denies illicit drugs. 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 Family history: Heart heart father of a [...] regurgitation or stenosis. Nuc stress Lexiscan Order: [id number] Narrative Chest pain radiating to jaw for [...] 13:14 Last Resulted: 05/22/19 13:54 Received From: [employer] CTA Chest W IV Contrast Order: [id number] Narrative Clinical indication Coughing, shortness of breath, [...] concerning for a (more content not included)... [facility] 03-31-2024 History of Present illness Narrative Images from the original note were not included. HPI referral to endocrinology Additional comments: She is still looking into this. She is going to check out one in [place]. Last edited by Anuja Meade LPN on [...] fail to improve. documented in this encounter [facility] 08-15-2023 History of Present illness Narrative Subjective Patient ID: Chester Negro is a 62 y.o. female who presents for Wellness. Subjective Chester Negro is a 62 y.o. female and is here for a comprehensive physical exam. The patient would like to discuss her Levothyroxine. States Dr. Zhao had her on HYPNOTHERAPIST thyroid at one time and she felt [...] Hiatal hernia The patient is seeing a medical office technologist for this condition, treatment is deferred to that specialist. Correspondence from that specialist and any available testing were reviewed during today's visit. Palpitation This is a chronic medical condition that is stable since last assessment. No changes in treatment are suggested at this time. Polyp of colon, unspecified part of colon, unspecified type The patient is seeing a medical office technologist for this condition, treatment is deferred to that specialist. Correspondence from that specialist and any available testing were reviewed during today's visit. Diverticulosis of colon The patient is seeing a medical office technologist for this condition, treatment is deferred to that specialist. Correspondence from that specialist and any available testing were reviewed during today's visit. Eosinophilic esophagitis The patient is seeing a medical office technologist for this condition, treatment is deferred to that specialist. Correspondence from that specialist and any available testing were reviewed during today's visit. Gastric mass The patient is seeing a medical office technologist for this condition, treatment is deferred to that specialist. Correspondence from that specialist and any available testing were reviewed during today's visit. History of gastric ulcer The patient is seeing a medical office technologist for this condition, treatment is deferred to that specialist. Correspondence from that specialist and any available testing were reviewed during today's visit. Irritable bowel syndrome with diarrhea The patient is seeing a medical office technologist for this condition, treatment is deferred to that specialist. Correspondence from that specialist and any available testing were reviewed during today's visit. Schatzki's ring of distal esophagus The patient is seeing a medical office technologist for this condition, treatment is deferred to that specialist. Correspondence from that specialist and any available testing were reviewed during today's visit. [place]-Walker grade 3 cystocele The patient is seeing a medical office technologist for this condition, treatment is deferred to that specialist. Correspondence from that specialist and any available testing were reviewed during today's visit. Cystocele, midline The patient is seeing a medical office technologist for this condition, treatment is deferred to that specialist. Correspondence from that specialist and any available testing were reviewed during today's visit. Enlarged uterus The patient is seeing a medical office technologist for this condition, treatment is deferred to that specialist. Correspondence from that specialist and any available testing were reviewed during today's visit. Fibroids, submucosal The patient is seeing a medical office technologist for this condition, treatment is deferred [...] free; Future - TSH; Future - thyroid (HYPNOTHERAPIST Thyroid) 60 MG tablet; Take 1 tablet (60 mg) by mouth in the morning. - T3, free; Future - T4, free; Future - TSH; Future Will get updated baseline thyroid testing, the repeat in 6-8 weeks. She will restart the HYPNOTHERAPIST Thyroid and discontinue the Levothyroxine. Advise pt that if we cannot obtain stable labs regarding her thyroid I would recommend a referral to [facility] for further evaluation. She is in agreement with the above. ESS (euthyroid sick syndrome) - T3, free; Future - T4, free; Future - TSH; Future - thyroid (HYPNOTHERAPIST Thyroid) 60 MG tablet; Take 1 tablet (60 mg) by mouth in the morning. - T3, free; Future - T4, free; Future - TSH; Future See above. Wanda's disease (CMS/HCC) - T3, free; Future - T4, free; Future - TSH; Future - T3, free; Future - T4, free; Future - TSH; Future See above. Left ovarian cyst The patient is seeing a medical office technologist for this condition, treatment is deferred [...] breast cancer The patient is seeing a medical office technologist for this condition, treatment is deferred to that specialist. Correspondence from that specialist and any available testing were reviewed during today's visit. H/O tubal ligation The patient is seeing a medical office technologist for this condition, treatment is deferred [...] endometrial ablation The patient is seeing a medical office technologist for this condition, treatment is deferred [...] Tubular adenoma The patient is seeing a medical office technologist for this condition, treatment is deferred to that specialist. Correspondence from that specialist and any available testing were reviewed during today's visit. Vision abnormalities The patient is seeing a medical office technologist for this condition, treatment is deferred to that specialist. Correspondence from that specialist and any available testing were reviewed during today's visit. Follow up in about 6 months (around 02/13/2024) for Medication Follow Up. documented in this encounter [facility] 02-02-2022 History of Present illness Narrative Images from the original note were not included. Gynecology Rounds POD# 1 Procedure: Anterior Colporrhaphy Date: 02/02/2022 Time: 10:00 AM Patient Name: Chester Negro Patient : 1960 Room/Bed: [address] [place] [address] Admission Date/Time: 02/01/2022 6:02 AM [facility] #: [id number] Attending Physician Statement I have discussed the [...] Ketones, Urine 02/01/2022 NEGATIVE NEGATIVE Final Specific [place], UA 02/01/2022 1.008 1.000 - 1.030 Final [...] QD - Currently asymptomatic Hypothyroidism - Continue Leary Thyroid 60mg BID Hx gastric ulcer - Will avoid PO NSAIDs Please [employer] Dr. Rehana Hernandez from [phone] with any questions David Kimball DO Waste Disposal Plant Operator Resident 02/02/2022, 7:13 AM Gynecology Progress [...] NEGATIVE NEGATIVE Ketones, Urine NEGATIVE NEGATIVE Specific [place], UA 1.008 1.000 - 1.030 Urine Hgb [...] QD - Currently asymptomatic Hypothyroidism - Continue Leary Thyroid 60mg BID Hx gastric ulcer - Will avoid PO NSAIDs Please [employer] Dr. Isabel Omer from [phone] with [address] Ksenia Herman from [phone] Margarito Saldivar MD Waste Disposal Plant Operator Resident Pager: [phone] 02/01/2022, 12:41 PM Resident Physician Statement I have personally seen the patient. I agree with the assessment, plan and orders as documented by horacio resident. I have made changes to the above note as needed. I have discussed the case with above named attending. Isabel Omer DO ELECTROPHYSIOLOGIST PGY-3 02/01/2022 12:46 PM documented in this encounter [facility] [employer] Phone: 02-01-2022 Hospital Discharge instructions Ino Brothers DO - 02/01/2022 7:26 AM EDT Images from the original note were not included. Patient Name: Chester Negro Date: 02/01/2022 Time: 7:24 AM [facility] Outpatient Surgery After Care Instructions For Problems after Leaving the Hospital Call IN AN EMERGENCY CALL 911 OR GO TO THE NEAREST EMERGENCY ROOM For The next 24 hours: Do not: drive, work, or operate machinery Do not: consume alcohol, tranquilizers, or sleeping medications Do not: make important personal or business decisions Normal post operative expectations: A low grade fever Pettis coloration of skin from soap Sore scratchy [...] with food Take Pain medication with food [facility] Activity: Restrict your activities [...] all persons verbalize understanding of the instructions. [facility] [address] [place] [address] Discharge Instructions for Cystocele and Rectocele Repair [...] taking more than one drug. This includes [id number] medication and herb or dietary supplements. Plan [...] call 911 immediately. documented in this encounter [employer] Phone: 01-22-2022 History of Present illness Narrative Patient went to radiology for chest x-ray. Dr Brothers's office has already obtained endocrine clearance and this is included in surgery chart. documented in this encounter [employer] Phone: 01-22-2022 Hospital Discharge instructions Shahla Rapp [...] surgery with a sip of water: metoprolol, HYPNOTHERAPIST thyroid Surgery Instructions: After midnight before surgery: [...] powder, deodorant, jewelry, piercings, perfume, makeup, nail barbadian, hair accessories, or hair spray on the day of surgery. Wear loose comfortable clothing. Leave your valuables at home. Bring a storage case for any glasses/contacts. The Day of Surgery: Arrive at [facility] Surgery Entrance at the time directed by your surgeon and check in at the desk. If you have a living will or healthcare power of die mounter, please bring a copy. You will be taken to the pre-op holding area where you will be prepared for surgery. A physical assessment will be performed by a nurse practitioner or housekeeping department worker. Your IV will be started and [...] . documented in this encounter MELE SALAZAR [employer] Phone: 09-29-2021 History of Present illness Narrative It is to be noted that I can not sign the H&P for reason that I'm not assigned as a co signer. The nurse is aware and OKyed to start the Procedure SO ADMINISTRATION PLEASE DON'T SEND ME A LETTER. THANK YOU! documented in this encounter [employer] Phone: 09-25-2021 Reason for visit Narrative Specialty Diagnoses / Procedures Referred By Contke t Referred To Contact Diagnoses History of colon polyps GERD (gastroesophageal reflux disease) HISTORY OF COLON POLYPS / GERD COVID 09/25 Procedures NM ESOPHAGOGASTRODUODENOSCOPY TRANSORAL DIAGNOSTIC NM COLONOSCOPY FLX DX W/COLLJ SPEC WHEN PFRMD EGD COLONOSCOPY DIAGNOSTIC Constantine Sanchez MD [address], [address] [place] [address] [address] [place] [address] Referral ID Status Reason Start Date Expiration Date Visits Re quested Visits Authorized [id number] 1 [employer] Phone: [phone]) 468-810903-11-2022 History of Present illness Narrative* Su Tolbert [...] lotion, powder, jewelry, piercings, perfume, makeup, nail barbadian, hair accessories, or hair spray on the day of surgery. Wear loose comfortable clothing. 4. Leave your valuables at home. Bring a storage case for any glasses/contacts. 5. An adult who is responsible for you MUST drive you home and should be with you for the first 24 hours after surgery. The Day of Surgery: Arrive at [facility] Surgery Entrance at the time directed by your surgeon and check in at the desk. If you have a living will or healthcare power of die mounter, please bring a copy. You will be taken to the pre-op holding area where you will be prepared for surgery. A physical assessment will be performed by a nurse practitioner or housekeeping department worker. Your IV will be started and [...] Sharad and understanding verbalized. documented in this encounter[employer]igl[facility] Phone: evaluation note* Diagnosis Visit for screening mammogram Other screening mammogram documented in this encounter [employer] Phone: evaluation note* Diagnosis Pre-op testing- Primary Preoperative examination, unspecified documented in this encounter [employer] Phone: evaluation note* Diagnosis Gastroesophageal reflux disease Esophageal reflux Screening for colorectal cancer Special screening for malignant neoplasms, colon documented in this encounter [employer] Phone: evaluation note* Diagnosis Overflow incontinence documented in this encounter [employer] Phone: evaluation note* Diagnosis Encounter for screening mammogram for malignant neoplasm of breast Other screening mammogram documented in this encounter [employer] Phone: evaluation note* Diagnosis Pre-op testing Preoperative examination, unspecified Cystocele, unspecified (CODE) documented in this encounter [employer] Phone: evaluation note* Diagnosis S/P anterior colporrhaphy- Primary Cystocele, unspecified (CODE) [place]-Walker grade 3 cystocele Overflow incontinence Cystocele REPAIR 02/01/2022 Cystocele, midline Other specified hypothyroidism History of gastric ulcer Personal history of other diseases of digestive system Heart palpitations Palpitations documented in this encounter [employer] Phone: evaluation note* Diagnosis Post-menopausal Asymptomatic postmenopausal status (age-related) (natural) documented in this encounter [employer] Phone: evaluation note* Diagnosis Wellness examination- [...] bowel syndrome Schatzki's ring of distal esophagus [place]-Walker grade 3 cystocele Cystocele, midline Enlarged uterus [...] Unspecified visual loss documented in this encounter [facility] HealthcareEvaluation note* Diagnosis Encounter for screening mammogram for malignant neoplasm of breast Other screening mammogram documented in this encounter [facility] HealthEvaluation note* Diagnosis Palpitation- Primary Palpitations Shortness of breath Acquired hypothyroidism (CMS/HCC) Unspecified hypothyroidism documented in this encounter [facility] HealthcareEvaluation note* Diagnosis 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 Thoracic spine pain Pain in thoracic spine 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 documented in this encounter [facility] HealthcareEvaluation note* Diagnosis Abnormal finding on imaging of liver- Primary Hepatic lesion Hypokalemia Hypopotassemia Vitamin D deficiency Vitamin B-complex deficiency Unspecified vitamin B deficiency Acquired hypothyroidism (CMS/HCC) Unspecified hypothyroidism Elevated LDL cholesterol level (CMS/HCC) PSVT (paroxysmal supraventricular tachycardia) (CMS/HCC) Paroxysmal supraventricular tachycardia Tubular adenoma Benign neoplasm of unspecified site documented in this encounter [facility] HealthcareEvaluation note* Diagnosis Acquired hypothyroidism- Primary Unspecified hypothyroidism [facility]* Instructions* Orestes Martell RN [...] Where can you learn more? Go to [email or web address] and sign in to your [employer] account. Enter E264 in the Search Health Information box to learn more about Colonoscopy: What to Expect at Home. If you do not have an account, please click on the Sign Up Now link. [employer]. Care instructions adapted under license by [employer]. This care instruction is for use with your licensed healthcare professional. If you have questions about a medical condition or this instruction, always ask your healthcare professional. [employer] disclaims any warranty or liability for your use of this information. Content Version: [id number]; Last Revised: August 27, 2012 PATIENT INSTRUCTIONS [...] of fluids when exercising. MEDICATIONS: Take an qndq-mjn-aesspjv fiber supplement as noted above twice daily. [...] to call your physician or the hospital railroad crane operator if you have any questions, and [...] Whole-grain breads, muffins, bagels, or dimitri bread Dallas bread Whole-wheat crackers or crisp breads Whole-grain or bran cereals Oatmeal, oat bran, or grits Wheat germ Whole-wheat pasta and brown rice Read the ingredients list on food labels. Look for products that list whole as the first ingredient (eg, whole-wheat, whole oats). Choose cereals with at least 2 grams of fiber per serving. Vegetables All vegetables, especially asparagus, maldonado sprouts, broccoli, Shamrock sprouts, cabbage, carrots, cauliflower, celery, corn, greens, [...] All nuts and seeds, especially almonds, peanuts, Brooks nuts, cashews, peanut butter, walnuts, sesame and [...] or sigmoidoscopy . A Colon Polyp 2010 ION Signature. Reasons for Procedure The purpose of the [...] throat or neck pain documented in this encounterVigiglobe Phone: InstructionsNot on filedocumented in this encounter [facility] Narrative* Auth/Cert Specialty Diagnoses / Procedures Referred By Elma pepe Referred To Contact Diagnoses Cystocele, unspecified (CODE) PELVIC PRESSURE CYSTOCELE Procedures NM ANTERIOR COLPORRAPHY RPR CYSTOCELE W/CYSTO VAGINAL ANTERIOR REPAIR Ino Brothers DO [address], [address] [place] [address] [employer] [address] [place] [address] Referral ID Status Reason Start Date Expiration Date Visits Re quested Visits Authorized [id number] 1 1 [employer] Phone: reason for visit Narrative* MRI/CT (Routine) - Open Specialty Diagnoses / Procedures Referred By Elma pepe Referred To Contact [facility] Diagnoses Chronic diastolic (congestive) heart failure Eosinophilia, unspecified MRI Cardiac Morph function w/wo IVCON Diagnosis: Diastolic CHF, chronic Eosinophilic disorder Scanned Docs I50.32 Procedures CARD MRI W/W/O CON W/STRESS IMAGE MRI WWO CARD [address] Vik Mcarthur MD [address] [place] [address] Phone: tel: fax: [facility] [address] [place] [address] Phone: tel: Referral ID Status Reason Start Date Expiration Date V isits Requested Visits Authorized [id number] Open Patient Cleared - Admin/Chairm an/Director advise to proceed or did not respond 08/20/2024 10/19/2024 1 1 [facility] Summary Purpose Family History No Family History Records FoundNo Family History Records FoundNo Family History Records FoundNo Family History Records FoundNo Family History Records FoundNo Family History Records FoundNo Family History Records FoundNo Family History Records Found Advance Directives No Advanced Directives Records FoundDocuments on File Type Date Recorded 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 ACP-Advance Directive ACP-Power of Wind Commissioning Technician Latest Code Status on File Code Status Date Activated Date Inactivated Comments Full Code 03/14/2016 8:36 AM 03/15/2016 12:04 AM Documents on File Type Date Recorded 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 ACP-Advance Directive ACP-Power of Wind Commissioning Technician Latest Code Status on File Code Status Date Activated Date Inactivated Comments Full Code 03/14/2016 8:36 AM 03/15/2016 12:04 AM Documents on File Type Date Recorded 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 Advance Directives and Living Will Power of Wind Commissioning Technician Latest Code Status on File Code Status [...] W OR WO CAD BILATERAL [employer], [place] [address] Specialty Diagnoses / Procedures Referred By Contac t Referred To Contact Radiology Diagnoses Encounter for screening mammogram for malignant neoplasm of breast Procedures JORGE FABIAN DIGITAL SCREEN BILATERAL JORGE DIGITAL SCREEN W OR WO CAD BILATERAL [employer], [place] [address] Referral ID Status Reason Start Date Expiration Date Visits Re quested Visits Authorized [id number] Closed 12/15/2021 12/15/2022 1 1 Specialty Diagnoses / Procedures Referred By Contac t Referred To Contact Cardiology Diagnoses Pre-op testing Procedures EKG 12 lead Ino Brothers, DO [address], [address] [place] [address] Referral ID Status Reason Start Date Expiration Date Visits Re quested Visits Authorized [id number] Open 01/16/2022 01/16/2023 1 1 Specialty Diagnoses / Procedures Referred By Contac t Referred To Contact Radiology Diagnoses Post-menopausal Procedures DEXA BONE DENSITY AXIAL SKELETON Ino Brothers, DO [address], [address] [place] [address] Referral ID Status Reason Start Date Expiration Date V isits Requested Visits Authorized [id number] Pending Review 12/05/2021 12/05/2022 1 1 Specialty Diagnoses / Procedures Referred By Contac t Referred To Contact Radiology Diagnoses Palpitation Shortness of breath Procedures Holter monitor Candy Gee PA [address] [facility] [address] [place] [address] Referral ID Status Reason Start Date Expiration Date V isits Requested Visits Authorized [id number] Pending Review 03/31/2024 09/27/2024 1 1 Additional Source Comments INFORMATION SOURCE (unrecogn ized section and content) DATE CREATED AUTHOR 12/31/2017 [facility] DATE CREATED AUTHOR AUTHOR'S ORGANIZ ATION 12/01/2021 [facility] dical Specialist DATE CREATED AUTHOR AUTHOR'S ORGANIZ ATION 04/27/2024 [facility] DATE CREATED AUTHOR AUTHOR'S ORGANIZ ATION 08/22/2024 [facility] DATE CREATED AUTHOR AUTHOR'S ORGANIZ ATION 10/14/2024 [facility] DATE CREATED AUTHOR AUTHOR'S ORGANIZ ATION 10/15/2024 [facility] dical Specialists EPIC DATE CREATED AUTHOR AUTHOR'S ORGANIZ ATION 11/21/2024 [facility] DATE CREATED AUTHOR AUTHOR'S ORGANIZ ATION 12/06/2024 [facility] Reason for Visit (unrecogniz ed section and content) Status Reason Specialty Diagnoses / Procedures Referre d By Contact Referred To Contact Closed Radiology Diagnoses Visit for screening mammogram Procedures JORGE FABIAN DIGITAL SCREEN SELF REFERRAL W OR WO CAD BILATERAL [employer], DO [address] [place] [address] Specialty Diagnoses / Procedures Referred By Harithaac t Referred To Contact Radiology Diagnoses Encounter for screening mammogram for malignant neoplasm of breast Procedures JORGE FABIAN DIGITAL SCREEN BILATERAL JORGE DIGITAL SCREEN W OR WO CAD BILATERAL In[employer], DO [address] [place] [id number] Referral ID Status Reason Start Date Expiration Date Visits Re quested Visits Authorized [id number] Closed 12/15/2021 12/15/2022 1 1 Specialty Diagnoses / Procedures Referred By Harithaac t Referred To Contact Radiology Diagnoses Post-menopausal Procedures DEXA BONE DENSITY AXIAL SKELETON In[employer], DO [address] [place] [address] Referral ID Status Reason Start Date Expiration Date V isits Requested Visits Authorized [id number] Pending Review 12/05/2021 12/05/2022 1 1 Specialty Diagnoses / Procedures Referred By Contac t Referred To Contact Radiology Diagnoses Encounter for screening mammogram for malignant neoplasm of breast Procedures JORGE FABIAN DIGITAL SCREEN BILATERAL JORGE DIGITAL SCREEN W OR WO CAD BILATERAL Samantha Weaver APRN - [employer] EQUIPMENT PRESERVATION INSPECTOR [address] [place] [id number] Referral ID Status Reason Start Date Expiration Date Visits Re quested Visits Authorized [id number] Closed 04/12/2024 04/12/2025 1 1 Reason Comments referral to endocrinology She is still l ooking into this. [place] is going to check out one in [place]. 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 (unrecognized sec tion and content) Trouble Tracer Relationship Specialty Start Date End Date Candy Gee [address] [place] [address] PCP - General 11/25/15 Trouble Tracer Relationship Specialty Start Date End Date Candy Gee [address] [place] [address] PCP - General 11/25/15 Trouble Tracer Relationship Specialty Start Date End Date Candy Gee [address] [place] [address] PCP - General 11/25/15 Trouble Tracer Relationship Specialty Start Date End Date Candy Gee [address] [place] [address] PCP - General 11/25/15 Trouble Tracer Relationship Specialty Start Date End Date Candy Gee [address] [place] [address] PCP - General 11/25/15 Trouble Tracer Relationship Specialty Start Date End Date Candy Gee [address] [place] [address] PCP - General 11/25/15 Trouble Tracer Relationship Specialty Start Date End Date Candy Gee [address] [place] [address] PCP - General 11/25/15 Trouble Tracer Relationship Specialty Start Date End Date Candy Gee [address] [place] [address] PCP - General 11/25/15 Trouble Tracer Relationship Specialty Start Date End Date Candy Gee [address] [place] [address] PCP - General 11/25/15 Trouble Tracer Relationship Specialty Start Date End Date Cali Zhao MD [address] [facility] [place] [address] PCP - [employer] 10/06/20 Jose Cruz Young MD [address] [place] [address] PCP - General Internal Medicine 11/23/22 Trouble Tracer Relationship Specialty Start Date End Date Cali Zhao MD [address] [place] [address] PCP - [employer] 10/06/20 Jose Cruz Young MD [address] [email or web address] [address] [place] [address] PCP - General Internal Medicine 11/23/22 Trouble Tracer Relationship Specialty Start Date End Date Cali Zhao MD [address] [place] [address] PCP - [employer] 10/06/20 Candy Gee PA [address] [facility] [[email or web address] [address] [place] [address] PCP - General Family Medicine 08/15/23 Trouble Tracer Relationship Specialty Start Date End Date Candy Gee PA-C PCP - General 11/25/15 Trouble Tracer Relationship Specialty Start Date End Date Candy Gee PA [address] [place] [address] PCP - General Family Medicine 08/15/23 Trouble Tracer Relationship Specialty Start Date End Date Candy Gee PA [address] [place] [address] PCP - General Family Medicine 08/15/23 Trouble Tracer Relationship Specialty Start Date End Date Candy Gee PA [address] [facility] [[email or web address] [address] [place] [address] PCP - General Family Medicine 08/15/23 Trouble Tracer Relationship Specialty Start Date End Date Candy Gee PA [address] [facility] [[email or web address] [address] [place] [address] PCP - General Family Medicine 08/15/23 Trouble Tracer Relationship Specialty Start Date End Date Candy Gee PA [address] [facility] [[email or web address] [address] [place] [address] PCP - [facility] Family Medicine 08/15/23 Trouble Tracer Relationship Specialty Start Date End Date Candy Gee PA [address] [facility] [[email or web address] [address] [place] [address] PCP - [facility] Medicine 08/15/23 Trouble Tracer Relationship Specialty Start Date End Date Candy Gee PA PCP - General 11/30/17 Trouble Tracer Relationship Specialty Start Date End Date Candy [...] - Provider: Mark Zapata Jr., BORIS - LINSEED OIL REFINER)1031 (Paused - Provider: Mark Zapata Jr., APRN - LINSEED OIL REFINER - Comment: Switch to gravity)1032 (Restarted - Provider: Mark Zapata Jr., BORIS - LINSEED OIL REFINER) PRN Medication Order 09/27/2021 09/28/2021 09/29/2021 0.9 [...] at 200 mL/hr, Administer over 60 Minutes, FIELD INTERVIEWER TO O.R., On Sat02/01/22 at 0630, For 1 dose, Administer within 1 hour prior to incision., Pre-op (day of surgery) 0803 (Given - Provider: Kam Polanco, BORIS - LINSEED OIL REFINER) clindamycin (CLEOCIN) 900 mg in dextrose 5 [...] approval) 2100 (Due - Provider: Yamileth Beltre [facility]) metoprolol tartrate (LOPRESSOR) tablet 25 mg 25 mg, Oral, DAILY, First dose on Sat02/02/22 at 0900, Until Discontinued 0704 (Given - Provid er: Kaya Marroquin RN) metronidazole (FLAGYL) 500 mg in 0.9% NaCl 100 mL IVPB premix (COMPLETED) 500 mg, IntraVENous, at 100 mL/hr, Administer over 60 Minutes, FIELD INTERVIEWER TO O.R., On Sat02/01/22 at 0630, For 1 dose, Administer within 1 hour prior to incision., Pre-op (day of surgery) 0749 (Given - Provider: Kam Polanco, DIRECTOR OF ADMISSIONS - LINSEED OIL REFINER) pantoprazole (PROTONIX) tablet 40 mg 40 mg, [...] Marroquin RN)1110 (Rate/Dose Verify - Provider: Kaya Marrqouin RN)1558 (Rate/Dose Change - Provider: Kaya Marroquin [...] urine. 1445 (Given - Provider: Kaya Marroquin RN)0044 (Given - Provider: Tram Chery, RN) 0539 (Given - Provider: Tram Chery, RN) sodium [...] or prosecute any alcohol or drug abuse patient.[facility] FOR RECORDS PERTAINING TO PATIENTS WHO ARE [...] BE BASED ON THE PRIMARY CLINICAL RECORDS. [facility] [employer] [facility]. provides no warranty or guarantee of the accuracy or completeness of information in this document.
[2024-12-09 08:17] LABS: Bilirubin Direct 0.1 mg/dL (0.0-0.2)
== END 2024-12-09 07:02 | disposition home or self-care (01) ==
LOC: LAB 07:04
PROVIDERS: PCP Physician Assistant
DX: R63.4 Abnormal weight loss (principal); K20.0 Eosinophilic esophagitis; K57.30 Diverticulosis of large intestine without perforation or abscess without bleeding; K31.89 Other diseases of stomach and duodenum
CPT/HCPCS: 36415; 82248

== ENCOUNTER 2025-01-25 08:05 | Outpatient (OUT) | payer BC, SELFPAY ==
--- OUTSIDE RECORDS SUMMARY | 2025-01-25 08:07 | XMS_ITS | Clinical Summary ---
Author Organization [facility] Address [address], [address] [place] [address] Care Team Providers Care Soakers Supervisor Name Role Phone Candy Gilbert PA-C Primary Care Provider Allergies Active Allergy Reactions Criticality Noted Date Comments Celecoxib Other (See Comments) High 04/14/2012 Intestinal bleeding Other Reaction(s): GI Bleeding Intestinal bleeding Gabapentin Nausea Only,Nausea And Vomiting Low 08/02/2021 Other Reaction(s): Stomach Upset Meloxicam Other (See Comments) 04/25/2018 ulcers Penicillins Swelling,Angioedema High 04/14/2012 Shellfish Allergy Diarrhea 05/20/2024 Shellfish-Derived Products Diarrhea,Nausea And Vomiting Low 04/17/2012 OK topical iodine Medications diclofenac sodium (VOLTAREN) 1 % GEL Apply 2 g topically 2 times daily Active vitamin D3 (CHOLECALCIFERO L) 125 MCG (5000 UT) TABS tablet Take 2 tablets by mouth daily Active acetaminophen (TYLENOL) 500 MG tablet Take 2 tablets by mouth every 6 hours as needed for Pain 80 tablet 1 2 Active baclofen (LIORESAL) 10 MG tablet Take 1 tablet by mouth nightly as needed 3 Active Aloe Vera 25 MG CAPS Take 1 tablet by mouth daily Active metoprolol tartrate (LOPRESSOR) 25 MG tablet Take 1 tablet by mouth 2 times daily 4 05/20/20 25 Active Biotin 1000 MCG CHEW Take by mouth Active thyroid (ARMOUR) 60 MG tablet Take 1 tablet by mouth daily 5 Active Active Problems Patient Care Coordination No te Formatting of this note migh t be different from the original. Dr Sanchez - GI Problem Noted Date Diagnosed Date EE (eosinophilic esophagitis) 10/22/2024 GERD (gastroesophageal reflux disease) 5 [place]-Walker grade 3 cystocele 02/01/2022 Overflow incontinence 02/01/2022 Cystocele REPAIR 02/01/2022 02/01/2022 Overview (02/02/2022): PVR=85 ml S/P anterior colporrhaphy 02/01/2022 Diverticulosis of colon 12/21/2021 History of gastric ulcer 12/21/2021 Tubular adenoma 12/21/2021 Eosinophilic esophagitis 12/21/2021 Vitamin D deficiency 11/20/2021 Vitamin B-complex deficiency 11/20/2021 Thoracic spondylosis without myelopathy 11/21/19 Primary osteoarthritis 11/20/2021 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 Occipital neuralgia 11/20/2021 Median neuropathy 11/20/2021 Lumbosacral spondylosis without myelopathy 11/20 Lipoprotein deficiency disorder 11/20/2021 Irritable bowel syndrome with diarrhea Hiatal hernia 11/20/2021 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 Dyssomnia 11/20/2021 Diverticular disease of colon 11/20/2021 Obesity 11/20/2021 Chronic pain 11/20/2021 Chronic fatigue syndrome 11/20/2021 Cervical spondylosis without myelopathy 11/21/19 22 Cervical radiculopathy 11/20/2021 Allergic rhinitis due to pollen 11/20/2021 COVID 07/28/2021 Weight loss 07/28/2021 Acute cystitis without hematuria 04/07/2021 Pneumonia due to COVID-19 virus 04/05/2021 Hypokalemia 04/05/2021 Colon polyps 01/20/2018 Overview (02/04/2018): flat polyp- tubular adenoma Abdominal pain 12/12/2017 Abdominal bloating 12/12/2017 Gastric mass= ULCER with endoscopic DX 8 S/P endometrial ablation 11/17/2015 Overview (11/17/2015): Cryo technique HERS OPTION H/O tubal ligation 11/17/2015 Enlarged uterus 06/05/2012 Fibroids, submucosal 06/05/2012 Overview (06/05/2012): Anterior 2 cm History of kidney stones Other specified hypothyroidism Overview (02/27/2018): Sees pcp Targeted TSH <2.6 Heart palpitations Arthritis Bruises easily Vision abnormalities Family history of breast cancer Overview (11/17/2015): MGM after 82 y.o. Gastroesophageal reflux disease Resolved Problems Problem Noted Date Diagnosed Date Resolved Date Screening for colorectal cancer 10/29/2021 Encounters Date Type Department Care Team Description 01/04/2025 Abstract [facility] [address] [place] [phone] Constantine Sanchez MD 01/04/2025 Orders Only [facility] [address] [place] [phone] Allegra Ritter MA Eosinophilic esophagitis; Diverticulosis of colon; Weight loss; Gastric mass= ULCER with endoscopic DX 11/26/2024 Results Follow-Up [facility] Obstetrics & Gynecology [address] [place] [phone] Carmen Soto APRN - DRUPAL PHP DEVELOPER 11/24/2024 3:30 PM EDT - 11/24/2024 11:59 PM EDT Hospital Encounter [facility] [address] [place] [address] Discharge Disposition: Home or Self Care 11/24/2024 9:00 AM EDT Office Visit [facility] Obstetrics & Gynecology [address] [place] [phone] Samantha Weaver APRN - BAG LOADER MACHINE OPERATOR Well woman exam with routine gynecological exam (Primary Dx); Encounter for screening mammogram for malignant neoplasm of breast; Special screening examination for human papillomavirus (HPV); Post-menopausal from Last 3 Months Immunizations Immunization Administration Dates Next Due TDaP, ADACEL (age 10y-64y), BOOSTRIX (age 10y+), IM, 0.5mL 01/21/2014 Family History Medical History Relation Name Comments Heart Disease Brother 1 Diabetes Father Horacio Heart Attack Father Horacio Heart Disease Father Horacio Breast Cancer Maternal Grandmother Swedish >80 Cancer Maternal Grandmother Swedish Hypertension Mother Su Breast Cancer Other MGrGM >80 Cancer Paternal Grandmother Syed Lung Cancer Paternal Grandmother Syed Colon Cancer Neg Hx Eclampsia Neg Hx Ovarian Cancer Neg Hx Labor Neg Hx Spont Abortions Neg Hx Stroke Neg Hx Relation Name Status Comments Brother 1 Alive Brother 2 Alive Brother 3 Alive Father Horacio (Age 73) MS Maternal Grandfather Maternal Grandmother Swedish Mother uS Alive Other MGrGM Paternal Grandfather Paternal Grandmother Syed Sister 1 Alive Sister 2 Alive Social History Tobacco Use Types Packs/Day Years Used Date Smoking Tobacco: Never Smokeless Tobacco: Never Tobacco Cessation:Counseling Given: Not Answered Comments:I have answered this countless times. Alcohol Use Standard Drinks/Week Comments Never 0 (1 standard drink = 0.6 oz pur e alcohol) PHQ-2 Answer Date Recorded PHQ-9 Total Score 0 11/24/2024 Comments No Sex and Gender Information Value Date Recorded Sex Assigned at Not on file Legal Sex Female 9:17 AM EST Gender Identity Female 12/21/2021 1:03 PM EDT Sexual Orientation Not on file Last Filed Vital Signs Vital Sign Reading Time Taken Comments Blood Pressure 102/72 11/24/2024 9:04 AM EDT Pulse 66 02/02/2022 7:00 AM EDT Temperature 36.6 C (97.9 F) 10/22/2024 2:43 PM EDT Respiratory Rate 16 02/02/2022 7:00 AM EDT Oxygen Saturation 94% 02/02/2022 2:50 AM EDT Inhaled Oxygen Concentration - - Weight 82.6 kg (182 lb) 11/24/2024 9:04 AM EDT Height 162.6 cm (5' 4 ) 11/24/2024 9:04 AM EDT Body Mass Index 31.24 11/24/2024 9:04 AM EDT Plan of Treatment Upcoming Encounters Date Type Department Care Team (Latest Contact Info) Description 04/08/2025 12:00 PM EDT [place] [facility] [place] [address] [place] [address] Constantine Sanchez MD [address] [facility] [address], [address] [place] [address] 04/08/2025 12:00 PM EDT - 04/08/2025 12:30 PM EDT [place] [facility] [place] [address] [place] [address] Constantine Sanchez MD [address] [facility] [address], [address] [place] [address] ESOPHAGOGASTRODUODENOSCOPY BIOPSY 04/26/2025 2:45 PM EDT Appointment [facility] [address] [facility] [place] [address] Epic sched w/ Pt 11/24/2025 9:00 AM EDT Office Visit [facility] Obstetrics & Gynecology [address] [facility] [address] [place] [phone] Samantha Weaver APRN - BAG LOADER MACHINE OPERATOR [address] [facility] [address] [place], [place] [phone] annual Scheduled Procedures Name Priority Associated Diagnoses Date/Ti me ESOPHAGOGASTRODUODENOSCOPY BIOPSY EE (eosinophilic esophagitis) Diverticulosis of colon Weight loss Gastric mass GERD (gastroesophageal reflux disease) 04/08/2025 12:00 PM EDT Health Maintenance Due Date Last Done Comments Lipids 2002 FIT/FOBT: Average risk 10/29/2007 Fecal-DNA (Cologuard): Average risk 10/29/2007 Sigmoidoscopy/CT colonography 10/29/2007 Pneumococcal 50+ years Vaccine (1 of 1 - PCV) 2012 Shingles vaccine (1 of 2) 2012 08/06/2024 Respiratory Syncytial Virus (RSV) or age 60 yrs+ (1 - Risk 60-74 years 1-dose series) 2022 DTaP/Tdap/Td vaccine (2 - Td or Tdap) 01/22/2024 01/21/2014 COVID-19 Vaccine (1 - season) 2024 Colonoscopy 09/29/2024 09/29/2021, 01/05, 01/20/2018, Additional history exists Colorectal Cancer Screen 09/29/2024 Flu vaccine (#1) 02/05/2025 06/25/2024 Depression Screen 11/24/2025 11/24/2024, 11/24/2024 Breast cancer screen 04/24/2026 04/24/2024, 04/12/2023, 12/26/2021, Additional history exists Pap smear 11/25/2027 11/24/2024, 11/05, 11/23/2021, Additional history exists Cervical cancer screen 11/24/2029 HPV (without or with Pap) 11/24/20292024, 11/21/2022, 07/28/2018, Additional history exists HIV screen Completed 11/16/1992 Diabetes screen Discontinued 11/17/2015 Hepatitis C screen Addressed 11/17/2015 (Declined) Overridden with the intention of not completing the topic Hepatitis A vaccine Aged Out No longe r eligible based on patient's age to complete this topic Hepatitis B vaccine Aged Out No longe r eligible based on patient's age to complete this topic Hib vaccine Aged Out No longer eligi ble based on patient's age to complete this topic Meningococcal (ACWY) vaccine Aged Out No longer eligible based on patient's age to complete this topic Meningococcal B vaccine Aged Out No l onger eligible based on patient's age to complete this topic Polio vaccine Aged Out No longer elig ible based on patient's age to complete this topic Procedures Procedure Name Priority Date/Time Associated Diagnosis Comments AFP TUMOR MARKER Routine 12/09/2024 Eosinophilic esophagitis Diverticulosis of colon Weight loss Gastric mass= ULCER with endoscopic DX HUMAN PAPILLOMAVIRUS (HPV) DNA PROBE THIN PREP HIGH RISK Routine 11/24/2024 12:00 AM EDT MARKETING ADMINISTRATOR CYTOLOGY Routine 11/24/2024 12:00 AM EDT JORGE FABIAN DIGITAL SCREEN BILATERAL Routine 04/24/2024 3:27 PM EDT Encounter for screening mammogram for malignant neoplasm of breast COLONOSCOPY W/ OR W/O BIOPSY Routine 01/20/2018 Generalized abdominal pain Abdominal bloating Acute gastric ulcer, unspecified whether gastric ulcer hemorrhage or perforation present Diverticulosis of large intestine without hemorrhage HEMOGLOBIN A1C Routine 11/17/2015 12:36 PM EDT Menorrhagia with regular cycle from Last 3 Months or Most Recently Relevant to Health Maintenance Results * AFP Tumor Marker (12/09/2024) Blood BLOOD SPECIMEN / Unknown 12/09/2024 Impressions Allegra Ritter MA - 12/09/2024 2.2 us Constantine Sanchez MD CHEMISTRY ORDERABLES Final Resu lt * Human papillomavirus (HPV) DNA probe thin prep high risk (11/24/2024 12:00 AM EDT) Specimen Description CERVICAL MATERIAL 11/24/2024 12:00 AM EDT [facility] HPV Sample .THIN PREP 11/24/2024 12:00 AM EDT [facility] HPV, Genotype 16 Not Detected Not Detected 11/24/2024 12:00 AM EDT [facility] HPV, Genotype 18 Not Detected Not Detected 11/24/2024 12:00 AM EDT [facility] HPV, High Risk Other Not Detected Not Detected 11/24/2024 12:00 AM EDT [facility] HPV, Interpretation 11/24/2024 12:00 AM EDT [facility] Comment: This test amplifies and detects DNA [...] sexual abuse or for other forensic purposes. CERVICAL MATERIAL 11/24/2024 Samantha Churchill Meg REGIONAL CRA - BAG LOADER MACHINE OPERATOR HEMATOLOGY ORDERABLES Fi nal Result [facility] [address], [facility] [phone] * MARKETING ADMINISTRATOR Cytology (11/24/2024 12:00 AM EDT) Cytology Report Path Number: [id number] DIAGNOSIS Imaged ThinPrep Pap - Cervical (1 monolayer slide): Specimen Adequacy: Satisfactory for evaluation. - Endocervical/trans formation zone component present. Descriptive Diagnosis: Negative for [...] or for other forensic purposes. Performed at [facility], [address] [place] [address] . Source of Specimen: A: Imaged ThinPrep Pap - Cervical (1 monolayer slide) HPV Reflex?........... ...........HPV Regardless Clinical History Co-Test: ThinPrep Pap with high risk HPV testing Z01.419 Routine film editor supervisor exam without abnormal findings Z11.51 Encounter for screening for HPV Processing Lab: [address] [address] Interpretation performed at [address] [phone] This Pap Test has been evaluated with [...] smear result. GYNECOLOGIC CYTOLOGY REPORT Patient Name: CL[facility] Rec: [id number] [facility] ANATOMIC PATHOLOGY [address] [place] [phone] [facility] CERVICAL MATERIAL 11/24/2024 025 7:39 AM EDT Samantha Weaver REGIONAL CRA - BAG LOADER MACHINE OPERATOR PATHOLOGY/CYTOLOGY ORDER OLMAN Final Result [facility] [address] [place] [address] [facility] * JORGE FABIAN DIGITAL SCREEN BILATERAL (04/24/2024 3:27 PM EDT) Anatomical Region Laterality Modality Breast Bilateral Mammography 04/27/2024 8:13 AM EDT Impressions 04/27/2024 8:15 AM EDT No evidence of malignancy seen in either [...] to the patient regarding the results. The [employer] recommends annual mammograms for women 40 years and older. Performing Facility: [facility] [address] [place], [place] [address] Narrative 04/27/2024 8:15 AM EDT EXAMINATION: SCREENING DIGITAL BILATERAL MAMMOGRAM WITH TOMOSYNTHESIS, [...] distortion or significant interval changes are noted. Samantha Weaver APRN - BAG LOADER MACHINE OPERATOR IM MAMMOGRAPHY ORDERABL ES Final Result * COLONOSCOPY W/ OR W/O BIOPSY (01/20/2018) Constantine Sanchez MD GENERAL SURGICAL ORDERABLES Fin al Result * Hemoglobin A1C (11/17/2015 12:36 PM EDT) Hemoglobin A1C 4.6 4.0 - 6.0 % 11/17/2015 8:45 PM EDT PN LAB Estimated Avg Glucose 85 mg/dL 11/17/2015 8:45 PM EDT [facility] Comment: The ADA and AACC recommend providing the estimated average glucose result to permit better patient understanding of their HBA1c result. Performed at [facility] [address] [place] [id number] BLOOD SPECIMEN / Unknown 11/17/2015 12:36 PM EDT 11/17/2015 12:38 PM EDT us [employer] DO CHEMISTRY ORDERABLES Fin al Result [facility] [address] [place] [address], [facility] [phone] [facility] from Last 3 Months or Most Recently Relevant to Health Maintenance Insurance [facility] Advance Directives * Full Code (Latest Code Status on File) Date Activated Date Inactivated Comments 02/01/2022 6:09 AM 02/02/2022 12:51 PM * Full Code Date Activated Date Inactivated Comments 03/14/2016 8:36 AM 03/15/2016 12:04 AM Care Teams Soakers Supervisor Relationship Specialty Start Date End Date Candy Gilbert PA-C PCP - General 11/25/15
--- OUTSIDE RECORDS SUMMARY | 2025-01-25 08:08 | XMS_ITS | Encounter Summary ---
Author Organization [facility] Address [address] [facility] [facility] [address] [place] [address] Care Team Providers Care Esl Tutor Name Role Phone Candy Gilbert PA-C Primary Care Provider Reason for Visit * Reason Comments Other Encounter Details Date Type Department Care Team (Late st Contact Info) Description 06/29/2014 [facility] Gastroenterology [address] [place] [phone] Constantine Sanchez MD [address] [place] [phone] Other Social History Tobacco Use Types Packs/Day Years Used Date Smoking Tobacco: Never Smokeless Tobacco: Never Alcohol Use Standard Drinks/Week Comments No 0 (1 standard drink = 0.6 oz pur e alcohol) Comments No Sex and Gender Information Value Date Recorded Sex Assigned at Not on file Legal Sex Female 9:17 AM EST Gender Identity Female 12/21/2021 1:03 PM EDT Sexual Orientation Not on file documented as of this encounter Plan of Treatment Upcoming Encounters Date Type Department Care Team (Latest Contact Info) Description 04/08/2025 12:00 PM EDT Hospital Encounter [facility] [address] [place] [address] Constantine Sanchez MD [address] [place] [address] 04/08/2025 12:00 PM EDT - 04/08/2025 12:30 PM EDT Surgery [facility] [address] [place] [address] Constantine Sanchez MD [address] [facility], [address] [place] [address] ESOPHAGOGASTRODUODENOSCOPY BIOPSY 04/26/2025 2:45 PM EDT Appointment [facility] Mammography [address] [facility] [place] [address] Epic sched w/ Pt 11/24/2025 9:00 AM EDT Office Visit [facility] Obstetrics & Gynecology [address] [facility] [address] [place] [phone] Samantha Weaver APRN - STAVE HEWER [address] [facility] [address] [place], [place] [phone] annual Scheduled Procedures Name Priority Associated Diagnoses Date/Ti me ESOPHAGOGASTRODUODENOSCOPY BIOPSY EE (eosinophilic esophagitis) Diverticulosis of colon Weight loss Gastric mass GERD (gastroesophageal reflux disease) 04/08/2025 12:00 PM EDT documented as of this encounter Visit Diagnoses Not on filedocumented in this encounter Additional Health Concerns Infection Onset Date Last Indicated Resolved Time COVID-19 (Rule Out) 09/25/2021 09/25/2021 09/27/19 22 12:50 PM EDT documented as of this encounter Care Teams Esl Tutor Relationship Specialty Start Date End Date Candy Gilbert PA-C PCP - General 11/25/15 documented as of this encounter
--- OUTSIDE RECORDS SUMMARY | 2025-01-25 08:08 | XMS_ITS | Encounter Summary ---
Author Organization [facility] Address [address] [facility], [facility] [address] [place] [address] Care Team Providers Care Pumping Station Supervisor Name Role Phone Candy Gilbert PA-C Primary Care Provider Encounter Details Date Type Department Care Team (Late st Contact Info) Description 01/04/2025 Orders Only [facility] Gastroenterology [address] [place] [phone] Allegra Ritter MA Eosinophilic esophagitis; Diverticulosis of colon; Weight loss; Gastric mass= ULCER with endoscopic DX Social History Tobacco Use Types Packs/Day Years Used Date Smoking Tobacco: Never Smokeless Tobacco: Never Comments:I have answered thi s countless times. Alcohol Use Standard Drinks/Week Comments [...] PM EDT Hospital En[place] [facility] [address] [place] [address] Constantine Sanchez MD [address] [facility] [address] [place] [address] 04/08/2025 12:00 PM EDT - 04/08/2025 12:30 PM EDT [facility] [address] [place] [address] Constantine Sanchez MD [address] [facility], [address] [place] [address] ESOPHAGOGASTRODUODENOSCOPY BIOPSY 04/26/2025 2:45 PM EDT Appointment [facility] Mammography [address] [facility] [place] [address] Epic sched w/ Pt 11/24/2025 9:00 AM EDT Office Visit [facility]necology [address] [facility] [address] [place] [address] Samantha Weaver APRN - BLUE LINE TRIMMER [address] [facility] [address] [place] [address] annual Scheduled Procedures Name Priority Associated Diagnoses Date/Ti me ESOPHAGOGASTRODUODENOSCOPY BIOPSY EE (eosinophilic esophagitis) Diverticulosis of colon Weight loss Gastric mass GERD (gastroesophageal reflux disease) 04/08/2025 12:00 PM EDT documented as of this encounter Procedures Procedure Name Priority Date/Time Associated Diagnosis Comments AFP TUMOR MARKER Routine 12/09/2024 Eosinophilic esophagitis Diverticulosis of colon Weight loss Gastric mass= ULCER with endoscopic DX documented in this encounter Results * AFP Tumor Marker (12/09/2024) Blood BLOOD SPECIMEN / Unknown 12/09/2024 Impressions Allegra Ritter MA - 12/09/2024 2.2 Constantine Sanchez MD CHEMISTRY ORDERABLES Final Resu lt documented in this encounter Visit Diagnoses Diagnosis Diverticulosis of colon Diverticulosis of colon (without mention of hemorrhage) Weight loss Loss of weight Gastric mass= ULCER with endoscopic DX Unspecified disorder of stomach and duodenum EE (eosinophilic esophagitis) Eosinophilic esophagitis GERD (gastroesophageal reflux disease) Esophageal reflux Eosinophilic esophagitis Diverticulosis of colon Diverticulosis of colon (without mention of hemorrhage) Weight loss Loss of weight Gastric mass= ULCER with endoscopic DX Unspecified disorder of stomach and duodenum EE (eosinophilic esophagitis) Eosinophilic esophagitis Diverticulosis of colon Diverticulosis of colon (without mention of hemorrhage) Weight loss Loss of weight Gastric mass Unspecified disorder of stomach and duodenum GERD (gastroesophageal reflux disease) Esophageal reflux documented in this encounter Care Teams Pumping Station Supervisor Relationship Specialty Start Date End Date Candy Gilbert PA-C PCP - General 11/25/15 documented as of this encounter
--- OUTSIDE RECORDS SUMMARY | 2025-01-25 08:08 | XMS_ITS | Encounter Summary ---
Author Organization [facility] Address [address] [facility] [address] [place] [address] Care Team Providers Care Restoration Ecologist Name Role Phone Candy Gilbert PA-C Primary Care Provider Encounter Details Date Type Department Care Team (Late st Contact Info) Description 01/04/2025 [facility] [place] [facility] [address] [place] [phone] Constantine Sanchez MD [address] [place] [phone] Social History Tobacco Use Types Packs/Day Years [...] EDT Hospital En[facility] [address] [place], [place] [phone] Constantine Sanchez MD [address] [place] [address], [place] [address] 04/08/2025 12:00 PM EDT - 04/08/2025 12:30 PM EDT [place] [facility] [place] [address] [place] [address] Constantine Sanchez MD [address] [facility], [address] [place] [address] ESOPHAGOGASTRODUODENOSCOPY BIOPSY 04/26/2025 2:45 PM EDT Appointment [address] [place] [address] Epic sched w/ Pt 11/24/2025 9:00 AM EDT Office Visit [facility] Obstetrics & Gynecology [facility] [address] [phone] Samantha Weaver APRN - [employer] [address] [place] [phone] annual Scheduled Procedures Name Priority Associated Diagnoses Date/Ti me ESOPHAGOGASTRODUODENOSCOPY BIOPSY EE (eosinophilic esophagitis) Diverticulosis of colon Weight loss Gastric mass GERD (gastroesophageal reflux disease) 04/08/2025 12:00 PM EDT documented as of this encounter Visit Diagnoses Not on filedocumented in this encounter Care Teams Restoration Ecologist Relationship Specialty Start Date End Date Candy Gilbert PA-C PCP - General 11/25/15 documented as of this encounter
--- OUTSIDE RECORDS SUMMARY | 2025-01-25 08:08 | XMS_ITS | Clinical Summary ---
Author Organization [facility] Address [address] [place] [id number] Care Team Providers Care Electrical And Radio Mechanic Name Role Phone Unavailable Primary Care Provider Unavailabl e Social History Tobacco Use Types Packs/Day Years Used Date Smoking Tobacco: Never Assessed Comments Unknown Sex and Gender Information Value Date Recorded Sex Assigned at Not on file Legal Sex Female 8:34 AM EST Gender Identity Not on file Sexual Orientation Not on file Plan of Treatment Health Maintenance Due Date Last Done Comments Anxiety Screening 1980 Depression Screening 1980 HIV Screening 1980 Hepatitis C Screening 1980 CT Colonography 10/29/2007 Cologuard (FIT-DNA) 10/29/2007 Fecal Occult Blood 10/29/2007 Lipid Screening 10/29/2007 Sigmoidoscopy 10/29/2007 Pneumococcal Vaccine: 50+ (1 of 1 - PCV) 2012 Shingrix Vaccine (1 of 2) 2012 Colonoscopy 01/20/2019 01/20/2018 Colorectal Cancer Screening 01/20/2019 Cervical Cancer Screening 07/28/2021 07/28/2018 DTaP,Tdap,Td Vaccine (2 - Td or Tdap) 01/22/2024 01/21/2014 Covid-19 Vaccine ( - 2023-2 5 season) 2024 Diabetes Screening 01/22/2025 01/22/2022, 1 , 04/08/2021, Additional history exists Influenza Vaccine (#1) 2025 Mammogram Screening 04/24/2025 04/24/2024, 04/24/2024, 04/12/2023, Additional history exists RSV Vaccine (1 - 1-dose 75+ series) 2037 Insurance BLUE CARD PPO OOS
--- OUTSIDE RECORDS SUMMARY | 2025-01-25 08:08 | XMS_ITS | Encounter Summary ---
Author Organization [facility] Address [address] [facility] [address] [place] [address] Care Team Providers Care Appeals Court Associate Justice Name Role Phone Candy Gilbert PA-C Primary Care Provider Reason for Visit * Reason Comments Medication Refill Encounter Details Date Type Department Care Team (Late st Contact Info) Description 02/28/2020 Refill [facility] Gastroenterology [address] [place] [phone] Constantine Sanchez MD [address] [place] [address] [phone] Medication Refill Social History Tobacco Use Types Packs/Day Years Used Date Smoking Tobacco: Never Smokeless Tobacco: Never Alcohol Use Standard Drinks/Week Comments No 0 (1 standard drink = 0.6 oz pur e alcohol) PHQ-2 Answer Date Recorded PHQ-2 Score 0 10/08/2018 Comments No Sex and Gender Information Value Date Recorded Sex Assigned at Not on file Legal Sex Female 9:17 AM EST Gender Identity Female 12/21/2021 1:03 PM EDT Sexual Orientation Not on file documented as of this encounter Plan of Treatment Upcoming Encounters Date Type Department Care Team (Latest Contact Info) Description 04/08/2025 12:00 PM EDT [facility] [address] [place] [address] Constantine Sanchez MD [address] [place] [address], [place] [address] 04/08/2025 12:00 PM EDT - 04/08/2025 12:30 PM EDT [facility] [address] [place] [address] Constantine Sanchez MD [address] [facility] [place] [address] ESOPHAGOGASTRODUODENOSCOPY BIOPSY 04/26/2025 2:45 PM EDT Appointment [address] [place] [address] Epic sched w/ Pt 11/24/2025 9:00 AM EDT Office Visit [facility] Obstetrics & Gynecology [facility] [address] [phone] Samantha Weaver APRN - GOVERNMENT PROPERTY INSPECTOR [address] [place] [phone] annual Scheduled Procedures Name Priority Associated Diagnoses [...] documented as of this encounter Care Teams Appeals Court Associate Justice Relationship Specialty Start Date End Date Candy Gilbert PA-C PCP - General 11/25/15 documented as of this encounter
--- OUTSIDE RECORDS SUMMARY | 2025-01-25 08:08 | XMS_ITS | Encounter Summary ---
Author Organization [facility] Address [address] [facility] [address] [place] [address] Care Team Providers Care System Engineer Name Role Phone Candy Gilbert PA-C Primary Care Provider Encounter Details Date Type Department Care Team (Late st Contact Info) Description 03/15/2016 FollowUp Telephone Encounter [facility] General Surgery [address] [place] [address] Su Tolbert RN Social History Tobacco Use Types Packs/Day Years [...] PM EDT Hospital [place] [address] [place] [address] Constantine Sanchez MD [address] [facility] [address] [place] [address] 04/08/2025 12:00 PM EDT - 04/08/2025 12:30 PM EDT Surgery [facility] [address] [place] [address] Constantine Sanchez MD [address] [facility], [address] [place] [address] ESOPHAGOGASTRODUODENOSCOPY BIOPSY 04/26/2025 2:45 PM EDT Appointment [facility] [address] [facility] [place] [address] Epic sched w/ Pt 11/24/2025 9:00 AM EDT Office Visit [facility] Obstetrics & Gynecology [address] [facility] [address] [place] [phone] Samantha Weaver APRN - CANNONEER [address] [facility] [address] [place], [place] [phone] annual Scheduled Procedures Name Priority Associated Diagnoses Date/Ti me ESOPHAGOGASTRODUODENOSCOPY BIOPSY EE (eosinophilic esophagitis) Diverticulosis of colon Weight loss Gastric mass GERD (gastroesophageal reflux disease) 04/08/2025 12:00 PM EDT documented as of this encounter Visit Diagnoses Not on filedocumented in this encounter Additional Health Concerns Infection Onset Date Last Indicated Resolved Time COVID-19 (Rule Out) 09/25/2021 09/25/2021 09/27/19 12:50 PM EDT documented as of this encounter Care Teams System Engineer Relationship Specialty Start Date End Date Candy Gilbert PA-C PCP - General 11/25/15 documented as of this encounter
--- OUTSIDE RECORDS SUMMARY | 2025-01-25 08:08 | XMS_ITS | Encounter Summary ---
Author Organization [facility] Address [address] [facility] [place] [address] Care Team Providers Care Filling And Packing Supervisor Name Role Phone Candy Gilbert PA-C Primary Care Provider Encounter Details Date Type Department Care Team (Late st Contact Info) Description 11/26/2024 Results Follow-Up [facility] Obstetrics & Gynecology [address] [facility] [address] [place] [phone] Carmen Soto, AIRBORNE AND AIR DELIVERY SPECIALIST - CELL TOWER CLIMBER [address] [facility] [address] [place], [place] [phone] Social History Tobacco Use Types Packs/Day Years [...] EDT Hospital En[facility] [address] [place], [place] [phone] Constantine Sanchez MD [address] [facility], [address] [place] [address] 04/08/2025 12:00 PM EDT - 04/08/2025 12:30 PM EDT Surgery [facility] [address] [place] [address] Constantine Sanchez MD [address] [facility] [place] [address] ESOPHAGOGASTRODUODENOSCOPY BIOPSY 04/26/2025 2:45 PM EDT Appointment [address] [place] [address] Epic sched w/ Pt 11/24/2025 9:00 AM EDT Office Visit [facility] Obstetrics & Gynecology [address] [place] [phone] Samantha Weaver APRN - CANDY STARCH MOLD PRINTER [address] [place] [address] [phone] annual Scheduled Procedures Name Priority Associated Diagnoses Date/Ti me ESOPHAGOGASTRODUODENOSCOPY BIOPSY EE (eosinophilic esophagitis) Diverticulosis of colon Weight loss Gastric mass GERD (gastroesophageal reflux disease) 04/08/2025 12:00 PM EDT documented as of this encounter Visit Diagnoses Not on filedocumented in this encounter Care Teams Filling And Packing Supervisor Relationship Specialty Start Date End Date Candy Gilbert PA-C PCP - General 11/25/15 documented as of this encounter
--- OUTSIDE RECORDS SUMMARY | 2025-01-25 08:08 | XMS_ITS | Encounter Summary ---
Author Organization [facility] Address [address] [facility] [address] [place] [address] Care Team Providers Care Master Fire Control Technician Name Role Phone Candy Gilbert PA-C Primary Care Provider [phone] Reason for Visit * Reason Comments Medication Refill Encounter Details Date Type Department Care Team (Late st Contact Info) Description 03/05/2015 Refill [facility] Gastroenterology [address] [place] [phone] Kirt Martinez MD [address] [place] [phone] Medication Refill Social History Tobacco Use Types [...] PM EDT [place] [facility] [place] [address] [place] [address] Constantine Sanchez MD [address] [place] [address] 04/08/2025 12:00 PM EDT - 04/08/2025 12:30 PM EDT Surgery [facility] [address] [place] [address] Constantine Sanchez MD [address] [facility], [address] [place] [address] ESOPHAGOGASTRODUODENOSCOPY BIOPSY 04/26/2025 2:45 PM EDT Appointment [facility] Mammography [address] [facility] [place] [address] Epic sched w/ Pt 11/24/2025 9:00 AM EDT Office Visit [facility] Obstetrics & Gynecology [address] [facility] [address] [place] [phone] Samantha Weaver APRN - MORTGAGE CLERK [address] [facility] [address] [place], [place] [phone] annual Scheduled Procedures Name Priority Associated Diagnoses [...] documented as of this encounter Care Teams Master Fire Control Technician Relationship Specialty Start Date End Date Candy Gilbret PA-C PCP - General 11/25/15 documented as of this encounter
--- OUTSIDE RECORDS SUMMARY | 2025-01-25 08:08 | XMS_ITS | Clinical Summary ---
Author Organization [facility] Address [id number] [address] [place] [address] Care Team Providers Care Systems Support Officer Name Role Phone Candy Gilbert Primary Care Provider [phone] Allergies Active Allergy Reactions Criticality Noted Date Comments Celecoxib GI Bleeding High 11/30/2017 Meloxicam 05/21/2019 ulcer Penicillins Angioedema High 11/30/2017 Medications cholecalciferol, vitamin D3, 5,000 units tablet Take 1 tablet (5,000 Units total) by mouth in the morning. Active metoprolol tartrate (LOPRESSOR) 25 mg tablet Take 1 tablet (25 mg total) by mouth in the morning and 1 tablet (25 mg total) before bedtime. 5 10/24/19 26 Active vitamin K2 40 mcg tablet Take by mouth. Active biotin 1,000 mcg tablet,chewable Chew and swallow. Active thyroid, pork, (ARMOUR THYROID) 60 mg tabletIndications:A cquired hypothyroidism Take 1 tablet (60 mg total) by mouth in the morning. 90 tablet 3 5 Active levothyroxine (SYNTHROID) 25 MCG tabletIndications:A cquired hypothyroidism Take 1 tablet (25 mcg total) by mouth in the morning. 90 tablet 3 5 Active Active Problems Problem Noted Date Diagnosed Date Hypothyroidism 04/07/2021 Acute cystitis without hematuria 04/07/2021 Hypokalemia 04/05/2021 Pneumonia due to COVID-19 virus 04/05/2021 Gastroesophageal reflux disease without esophagi tis 04/05/2021 Class 3 severe obesity due t o excess calories with body mass index (BMI) of 40.0 to 44.9 in adult 04/05/2021 Chest pain 05/21/2019 Gastric mass 11/30/2017 Encounters Date Type Department Care Team Description 11/20/2024 9:00 AM EDT Office Visit [facility] Adult Endocrinology, A Department of [facility] [address] [place] [address] Chana Gomes MD Acquired hypothyroidism (Primary Dx) 11/20/2024 Travel from Last 3 Months Family History Medical History Relation Name Comments No Known Problems Brother Heart disease Father Arthritis Mother Heart disease Sister Relation Name Status Comments Brother Alive Father Mother Alive Sister Alive Social History Tobacco Use Types Packs/Day Years Used Date Smoking Tobacco: Never Smokeless Tobacco: Never Tobacco Cessation:Counseling Given: Not Answered Alcohol Use Standard Drinks/Week Comments No 0 (1 standard drink = 0.6 oz pur e alcohol) Social Connection and Isolat ion Panel [NHANES] Answer Date Recorded In a typical week, how many times do you talk on the phone with family, friends, or neighbors? More than three times a week 04/05/2021 How often do you get togethe r with friends or relatives? Once a week 04/05/2021 How often do you attend chur ch or mosque services? More than 4 times per year 04/05/2021 Do you belong to any clubs o r organizations such as jainism groups, unions, fraternal or athletic groups, or school groups? Yes 04/05/2021 How often do you attend meet ings of the clubs or organizations you belong to? More than 4 times per year 04/05/2021 Are you , , di vorced, , never , or living with a partner? 04/05/2021 AUDIT-C Answer Date Recorded Q1: How often do you have a drink containing alc ohol? Never 04/05/2021 Average Number of Drinks Not on file 021 Q3: How often do you have si x or more drinks on one occasion? Never 04/05/2021 Overall Financial Resource Strain (CARDIA) Answe r Date Recorded How hard is it for you to pa y for the very basics like food, housing, medical care, and heating? Not hard at all 04/05/2021 PHQ-2 Answer Date Recorded Total Score 0 04/05/2021 [facility] Occupat ional Health - Occupational Stress Questionnaire Answer Date Recorded Do you feel stress - tense, restless, nervous, or anxious, or unable to sleep at night because your mind is troubled all the time - these days? Not at all 04/05/2021 Exercise Vital Sign Answer Date Recorde d On average, how many days pe r week do you engage in moderate to strenuous exercise (like a brisk walk)? 6 days 04/05/2021 On average, how many minutes do you engage in exercise at this level? 60 min 04/05/2021 PRAPARE - Transportation Answer Date Re corded In the past 12 months, has l ack of transportation kept you from medical appointments or from getting medications? No 03/09 In the past 12 months, has l ack of transportation kept you from meetings, work, or from getting things needed for daily living? No 04/05/2021 Childcare Answer Date Recorded Do problems getting child ca re make it difficult for you to work or study? No 04/05/2021 Employment Answer Date Recorded Do you need help finding a [employer] career center and/or a training program? No 04/05/2021 Purpose - Life Answer Date Recorded I have a purpose and direction in my life. Stron gly Agree 04/05/2021 Comments No Sex and Gender Information Value Date Recorded Sex Assigned at Not on file Legal Sex Female 11:43 AM EDT Gender Identity Not on file Sexual Orientation Not on file Last Filed Vital Signs Vital Sign Reading Time Taken Comments Blood Pressure 135/81 11/20/2024 9:13 AM EDT Pulse 51 11/20/2024 9:13 AM EDT Temperature 36.4 C (97.5 F) 04/10/2021 8:53 AM EDT Respiratory Rate 16 11/20/2024 9:13 AM EDT Oxygen Saturation 92% 04/10/2021 8:53 AM EDT Inhaled Oxygen Concentration - - Weight 83.1 kg (183 lb 3.2 oz) 11/20/2024 9:13 A M EDT Height 152.4 cm (5') 11/20/2024 9:13 AM EDT Body Mass Index 35.78 11/20/2024 9:13 AM EDT Plan of Treatment Upcoming Encounters Date Type Department Care Team (Late st Contact Info) Description 05/24/2025 8:45 AM EST Office Visit [facility] Adult Endocrinology, A Department of [facility] [address] [facility] [address] [place] [address] Chana Gomes MD [address] [facility] [place] [address] Health Maintenance Due Date Last Done Comments Depression Screening 1974 Adult BMI Follow Up Plan 1980 DTaP,Tdap and Td Vaccines (2 - Td or Tdap) 01/22/2024 01/21/2014 Zoster (Shingles) Vaccine (2 of 3) 10/01/2024 08/06/2024, 06/25/2024 Influenza Vaccine 03/08/2025 06/25/2024, , 05/24/2021 Adult BMI Screening 11/20/2025 11/20/2024 Tobacco Screening 11/20/2025 11/20/2024 Pap Smear 11/25/2027 11/24/2024, 11/06, 11/21/2022, Additional history exists Goals Goal Patient Goal Type Associated Problems Recent Progress Patient-Stated? Author Home with self care General Yes Shahla Valentine, RN Note: Evaluation of progress towards goal: Patient plans to discharge home with self care and support of spouse. - Shahla Valentine RN 11/30/17 1:39 PM Medical Devices Not on file Insurance [employer] Advance Directives * Full Code (Latest Code Status on File) Date Activated Date Inactivated Comments 04/05/2021 5:53 PM 04/10/2021 7:35 PM * Full Code Date Activated Date Inactivated Comments 05/21/2019 6:44 PM 05/23/2019 7:59 PM * Full Code Date Activated Date Inactivated Comments 11/30/2017 11:33 AM 12/03/2017 8:04 PM Care Teams Systems Support Officer Relationship Specialty Start Date End Date Candy Gilbert PA PCP - General 11/30/17
[2025-01-25 08:21] LABS: Estimated GFR (African America >60 (>=60 mL/min/1.73m^2); Estimated GFR (Non-African Ame >60 (>=60 mL/min/1.73m^2)
== END 2025-01-25 08:06 | disposition home or self-care (01) ==
LOC: LAB 08:05
PROVIDERS: PCP Physician Assistant; Visit Provider Physician Assistant
DX: R93.2 Abnormal findings on diagnostic imaging of liver and biliary tract (principal); K76.9 Liver disease, unspecified
CPT/HCPCS: 36415; 74183; 82565; A9575

== ENCOUNTER 2025-04-12 08:46 | Outpatient (OUT) | payer BC, SELFPAY ==
--- OUTSIDE RECORDS SUMMARY | 2025-04-01 15:45 | XMS_ITS | Encounter Summary ---
Author Organization [facility] Address [address], [address] [place] [address] Care Team Providers Care Risk Assessor Name Role Phone Candy Gilbert PA-C Primary Care Provider [phone] Reason for Visit * Reason Comments Results Patient is here toda y for a f/u from EGD procedure completed on 03/11/25. Encounter Details Date Type Department Care Team (Late st Contact Info) Description 04/01/2025 3:45 PM EDT Office Visit [facility] [address] [place] [address] [phone] Constantine Sanchez MD [address] [place] [id number] EE (eosinophilic esophagitis) (Primary Dx); Diverticulosis of colon; History of gastric ulcer; Eosinophilic esophagitis; Gastric mass= ULCER with endoscopic DX; Weight loss; Liver lesion Social History Tobacco Use Types Packs/Day Years Used Date Smoking Tobacco: Never Smokeless Tobacco: Never Comments:I have answered thi s countless times. Alcohol Use Standard Drinks/Week Comments Never 0 (1 standard drink = 0.6 oz pur e alcohol) PHQ-2 Answer Date Recorded PHQ-9 Total Score 0 11/24/2024 Interpersonal Safety Domain Source: IP Abuse Scr eening Answer Date Recorded Physical abuse Denies 03/11/2025 Verbal abuse Denies 03/11/2025 Emotional abuse Denies 03/11/2025 Financial abuse Denies 03/11/2025 Sexual abuse Denies 03/11/2025 Comments No Sex and Gender Information Value Date Recorded Sex Assigned at Not on file Legal Sex Female 9:17 AM EST Gender Identity Female 12/21/2021 1:03 PM EDT Sexual Orientation Not on file documented as of this encounter Last Filed Vital Signs Vital Sign Reading Time Taken Comments Blood Pressure 129/90 04/01/2025 4:06 PM EDT Pulse 65 04/01/2025 4:06 PM EDT Temperature - - Respiratory Rate - - Oxygen Saturation - - Inhaled Oxygen Concentration - - Weight 81.6 kg (180 lb) 04/01/2025 4:06 PM EDT Height - - Body Mass Index 30.9 03/11/2025 10:05 AM EDT documented in this encounter Progress Notes * Constantine Sanchez MD - 04/01/2025 4:04 PM EDT Images from the original note were not included. GI CLINIC FOLLOW UP NTERVAL HISTORY: No referring provider defined for this encounter. Chief Complaint Patient presents with Results Patient is here today for a f/u from EGD procedure completed on 03/11/25. 1. EE (eosinophilic esophagitis) 2. Diverticulosis of colon 3. History of gastric ulcer 4. Eosinophilic esophagitis 5. Gastric mass= ULCER with endoscopic DX 6. Weight loss 7. Liver lesion The patient is here as a follow up of her recent GI procedure. 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 female with a past history remarkable for ,referred for evaluation of Chief Complaint Patient presents with Results Patient is here today for a f/u from EGD procedure completed on 03/11/25. . Past Medical,Family, and Social History reviewed and does contribute to the patient presenting condition. Patient's PMH/PSH,SH,PSYCH Hx, MEDs, ALLERGIES, and ROS were all reviewed and updated in the appropriate sections. PAST MEDICAL HISTORY: Past Medical History: Diagnosis Date Acute ulcer of stomach 12/01/2017 VERY LARGE, OCCUPYING ONE HALF OF THE ANTRUM UP TO THE PYLORUS, CAUSING PARTIAL OUTLET OBSTRUCTION VIA THE PYLORUS Anemia Arthritis Autoimmune disorder Bruises easily Colon polyps 01/20/2018 flat polyp- tubular adenoma Eosinophilic esophagitis Family history of breast cancer MGM after 80 y.o. Fibromyalgia GERD (gastroesophageal reflux disease) Heart palpitations history History of kidney stones Hypothyroid IBS (irritable bowel syndrome) Menopausal symptoms [place] Osteoarthritis Rh incompatibility Vision abnormalities wears glasses Past Surgical History: Procedure Laterality Date BUNIONECTOMY Right COLONOSCOPY 2008, 06/09/12 Negative COLONOSCOPY N/A 01/20/2018 flat polyp- tubular adenoma COLONOSCOPY N/A 09/29/2021 COLONOSCOPY WITH BIOPSY performed by Constantine Sanchez MD at [facility] ENDO ENDOMETRIAL ABLATION [employer] Option ENDOSCOPY, COLON, DIAGNOSTIC HYSTEROSCOPY 03/14/2016 D&C with thin prep pap smear KIDNEY STONE SURGERY 2003 retreival through bladder LEG SURGERY 06/2011 lumps removed from left leg LITHOTRIPSY 2001 TONSILLECTOMY AND ADENOIDECTOMY TUBAL LIGATION 1991 open UPPER GASTROINTESTINAL ENDOSCOPY 12/01/2017 HUGE ULCER CAUSING PARTIAL OUTLET OBSTRUCTION VIE THE PYLORUS UPPER GASTROINTESTINAL ENDOSCOPY 2018 UPPER GASTROINTESTINAL ENDOSCOPY N/A 01/20/2018 schatzki's ring; good healing of antral ulcer was noted wtih only a small protion left UPPER GASTROINTESTINAL ENDOSCOPY N/A 09/29/2021 EGD BIOPSY performed by Constantine Sanchez MD at [facility] ENDO UPPER GASTROINTESTINAL ENDOSCOPY N/A 03/11/2025 ESOPHAGOGASTRODUODENOSCOPY [facility] VAGINA SURGERY N/A 02/01/2022 CYSTOCELE REPAIR performed by Ino Brothers DO at [facility] OR CURRENT MEDICATIONS: Current Outpatient Medications: metoprolol tartrate (LOPRESSOR) 25 MG tablet, Take 1 tablet by mouth 2 times daily, Disp: , Rfl: Biotin 1000 MCG CHEW, Take by mouth, Disp: , Rfl: thyroid (ARMOUR) 60 MG tablet, Take 1 tablet by mouth daily, Disp: , Rfl: baclofen (LIORESAL) 10 MG tablet, Take 1 tablet by mouth nightly as needed, Disp: , Rfl: Aloe Vera 25 MG CAPS, Take 1 tablet by mouth daily, Disp: , Rfl: acetaminophen (TYLENOL) 500 MG tablet, Take 2 tablets by mouth every 6 hours as needed for Pain, Disp: 80 tablet, Rfl: 1 vitamin D3 (CHOLECALCIFEROL) 125 MCG (5000 UT) TABS tablet, Take 2 tablets by mouth daily, Disp: , Rfl: diclofenac sodium (VOLTAREN) 1 % GEL, Apply 2 g topically 2 times daily, Disp: , Rfl: ALLERGIES: Allergies Allergen Reactions Celecoxib Other (See Comments) Intestinal bleeding Other Reaction(s): GI Bleeding Intestinal bleeding Penicillins Swelling and Angioedema Meloxicam Other (See Comments) ulcers Shellfish Allergy Diarrhea Gabapentin Nausea Only and Nausea And Vomiting Other Reaction(s): Stomach Upset Shellfish-Derived Products Diarrhea and Nausea And Vomiting OK topical iodine FAMILY HISTORY: Problem Relation Age of Onset Breast Cancer Maternal Grandmother >80 Cancer Maternal Grandmother Heart Attack Father Diabetes Father Heart Disease Father Cancer Paternal Grandmother Lung Cancer Paternal Grandmother Hypertension Mother Heart Disease Brother Breast Cancer Other >80 Colon Cancer Neg Hx Eclampsia Neg Hx Ovarian Cancer Neg Hx Labor Neg Hx Spont Abortions Neg Hx Stroke Neg Hx SOCIAL HISTORY: Social History Socioeconomic History Marital status: Spouse name: Not on file Number of children: Not on file Years of education: Not on file Highest education level: Not on file Occupational History Not on file Tobacco Use Smoking status: Never Smokeless tobacco: Never Tobacco comments: I have answered this countless times. Vaping Use Vaping status: Never Used Substance and Sexual Activity Alcohol use: Never Drug use: No Sexual activity: Yes Partners: Male control/protection: Surgical Comment: tubal ligation Other Topics Concern Not on file Social History Narrative Not on file Social Drivers of Health Financial Resource Strain: Low Risk (04/05/2021) [facility] Financial Resource Strain (CARDIA) Difficulty of Paying Living Expenses: Not hard at all Food Insecurity: Not on file Transportation Needs: No Transportation Needs (04/05/2021) [facility] from [facility] PRAPARE - Transportation Lack of Transportation (Medical): No Lack of Transportation (Non-Medical): No Physical Activity: Unknown (12/19/2022) Received from [facility] Exercise Vital Sign On average, how many days per week do you engage in moderate to strenuous exercise (like a brisk walk)?: 6 days Minutes of Exercise per Session: Not on file Stress: No Stress Concern Present (04/05/2021) Received from [facility] [employer] [place] of Occupational Health - Occupational Stress Questionnaire Feeling of Stress : Not at all Social Connections: Unknown (12/19/2022) Received from [facility] Social Connection and Isolation Panel Frequency of Communication with Friends and Family: Not on file Frequency of Social Gatherings with Friends and Family: Not on file Attends Episcopal Services: Not on file Do you belong to any clubs or organizations such as judaism groups, unions, fraternal or athletic groups, or school groups?: Patient declined How often do you attend meetings of the clubs or organizations you belong to?: Patient declined Are you , , , , never , or living with a partner?: Intimate Partner Violence: Unknown (08/29/2023) Received from [facility] Safety & Environment Fear of Current or Ex-Partner: Not on file Emotionally Abused: Not on file Physically Abused: Not on file Sexually Abused: Not on file Physically or Sexually Abused: Not on file Housing Stability: Not on file REVIEW OF SYSTEMS: Review of Systems Constitutional: Negative for appetite change, fatigue and unexpected weight change. HENT: Negative for sore throat, trouble swallowing and voice change. Respiratory: Negative for cough, choking, shortness of breath and wheezing. Cardiovascular: Negative for chest pain, palpitations and leg swelling. Gastrointestinal: Negative for abdominal distention, abdominal pain, anal bleeding, blood in stool,constipation, diarrhea, nausea, rectal pain and vomiting. Neurological: Negative for dizziness, weakness, light-headedness, numbness and headaches. Hematological: Does not bruise/bleed easily. Psychiatric/Behavioral: Negative for confusion and sleep disturbance. The patient is not nervous/anxious. PHYSICAL EXAMINATION: Vital signs reviewed per the nursing documentation. BP (!) 129/90 Pulse 65 Wt 81.6 kg (180 lb) LMP 12/07/2017 (Approximate) BMI 30.90 kg/m?? Body mass index is 30.9 kg/m??. Physical Exam Nursing note reviewed. Constitutional: Appearance: She is well-developed. Comments: Anxious HENT: Head: Normocephalic and atraumatic. Eyes: Conjunctiva/sclera: Conjunctivae normal. Pupils: Pupils are equal, round, and reactive to light. Cardiovascular: Heart sounds: Normal heart sounds. Pulmonary: Effort: Pulmonary effort is normal. Breath sounds: Normal breath sounds. Abdominal: General: Bowel sounds are normal. Palpations: Abdomen is soft. Comments: NON TENDER, NON DISTENTED LIVER SPLEEN AND HERNIAS ARE NOT PALPABLE BOWEL SOUNDS ARE POSITIVE Musculoskeletal: General: Normal range of motion. Cervical back: Normal range of motion and neck supple. Skin: General: Skin is warm. Neurological: Mental Status: She is alert and oriented to person, place, and time. Psychiatric: Behavior: Behavior normal. LABORATORY DATA: Reviewed Lab Results Component Value Date WBC 7.1 01/22/2022 HGB 12.5 02/01/2022 HCT 35.5 (L) 02/01/2022 MCV 84.7 01/22/2022 PLT 217 01/22/2022 NA 139 01/22/2022 K 4.5 01/22/2022 CL 104 01/22/2022 CO2 27 01/22/2022 BUN 13 01/22/2022 CREATININE 0.51 01/22/2022 AST 15 06/23/2018 ALT 9 06/23/2018 INR 1.0 11/17/2015 Lab Results Component Value Date RBC 4.98 01/22/2022 HGB 12.5 02/01/2022 MCV 84.7 01/22/2022 MCH 28.5 01/22/2022 MCHC 33.6 01/22/2022 RDW 13.4 01/22/2022 MPV 8.1 01/22/2022 BASOPCT 0 01/22/2022 LYMPHSABS 1.50 01/22/2022 MONOSABS 0.50 01/22/2022 NEUTROABS 4.70 01/22/2022 EOSABS 0.50 (H) 01/22/2022 BASOSABS 0.00 01/22/2022 DIAGNOSTIC TESTING: No results found. Assessment 1. EE (eosinophilic esophagitis) 2. Diverticulosis of colon 3. History of gastric ulcer 4. Eosinophilic esophagitis 5. Gastric mass= ULCER with endoscopic DX 6. Weight loss 7. Liver lesion Plan Viscous Steroid PO trial will give samples from the office Pt was asked to chew food well Take time in eating Sit up or prop up when eating Don't talk when eating Walk after finish eating Use liquids with meals if has issues The patient has verbalized understanding and agreemenet to this. Pt seems to have signs and symptoms consistent with GERD, acid indigestion and heartburns. She was discussed in detail about some possible life style and dietary modifications. She was stressed aboutthe maintenance of appropriate weight and effect of obesity contributing to reflux symptoms. Routine exercise was streesed. Avoidance of Caffeine, nicotine and chocolate were explained. Pt was asked to avoid spices grease and fried food. Advices were also given about avoidance of any kind of fast foods, soda pops and highenergy drinks. Pt was advised to place two small block under the head end of the bed which may help with night time reflux. Was advised not to eat any thin at least 2-3 hrs before going to bed and walk especially after dinner Pt has verbalized understanding and agreement to this plan. Pt was advised in detail about some life style and dietary modifications. She was advised about avoidance of caffeine, nicotine and chocolate. Pt was also told to stay away from any kind of fast foods, soda pops. She was also advised to avoid lots of spices, grease and fried food etc. Instructions were also given about trying to arrange the timing, quality and quantity of food. Instructions were given about using ample amount of fiber including dietary and supplemental fiber either metamucil, bennafiber or citrucell etc. Pt was advised about drinking ample amount of water without any colors or chemicals. Stress was given about regular exercise. Pt has verbalized understanding and agreement to these modifications. More than half of patient's clinic visit time was spent in counseling about lifestyle and dietary modifications Patient's questions were answered in this regard as well The patient has verbalized understanding and agreement Call for any problem or issues Thank you for allowing me to participate in the care of Ms. Negro. For any further questions please do not hesitate to contact me. I have reviewed and agree with the ROS entered by the MA/Nurse. This note is created with the assistance of the speech recognition program. While intending to generate a document that actually reflects the content of the visit, document can still have some errors including those of syntax and sound like substitutions which may escape proof reading. Actual meaning can be extrapolated by contextual diversion. Constantine Sanchez MD, FACG Board Certified in Gastroenterology and Internal Medicine [facility] Office #: [phone] documented in this encounter Plan of Treatment Upcoming Encounters Date Type Department Care Team (Late st Contact Info) Description 04/26/2025 2:45 PM EDT Appointment [place] [id number] [facility] [place] [address] Epic sched w/ Pt 10/01/2025 10:00 AM EDT Office Visit [facility] [address] [place] [phone] Constantine Sanchez MD [address] [facility] [address] [place] [address] RTC 6 month 11/24/2025 9:00 AM EDT Office Visit [facility] [address] [place] [phone] Samantha Weaver APRN - PRODUCTION MACHINE OPERATOR [address] [place] [address] [phone] annual documented as of this encounter Visit Diagnoses Diagnosis EE (eosinophilic esophagitis)- Primary Eosinophilic esophagitis Diverticulosis of colon Diverticulosis of colon (without mention of hemorrhage) History of gastric ulcer Personal history of other diseases of digestive system Eosinophilic esophagitis Gastric mass= ULCER with endoscopic DX Unspecified disorder of stomach and duodenum Weight loss Loss of weight Liver lesion Other specified disorders of liver documented in this encounter Care Teams Risk Assessor Relationship Specialty Start Date End Date Candy Gilbert PA-C PCP - General 11/25/15 documented as of this encounter
--- OUTSIDE RECORDS SUMMARY | 2025-04-12 08:53 | XMS_ITS | Encounter Summary ---
Author Organization [facility] Address [address] [place] [address] Care Team Providers Care Assistant Professor Of Theater Name Role Phone Candy Gilbert Primary Care Provider [phone] Encounter Details Date Type Department Care Team (Late st Contact Info) Description 02/11/2025 Abstract [facility] [address] [place] [address] Candy Gilbert PA [address] [facility] [address] [place], [place] [phone] Social History Tobacco Use Types Packs/Day Years Used Date Smoking Tobacco: Never Smokeless Tobacco: Never Alcohol Use Standard Drinks/Week Comments Not Currently 0 (1 standard drink = 0.6 oz pur e alcohol) Caffeine intake: coffeee Humiliation, Afraid, Rape, and Kick questionnair e Answer Date Recorded Within the last year, have y ou been afraid of your partner or ex-partner? Patient declined 12/19/2022 Within the last year, have y ou been humiliated or emotionally abused in other ways by your partner or ex-partner? Patient declined 12/19/2022 Within the last year, have y ou been kicked, hit, slapped, or otherwise physically hurt by your partner or ex-partner? Patient declined 12/19/2022 Within the last year, have y ou been raped or forced to have any kind of sexual activity by your partner or ex-partner? Patient declined 12/19/2022 Social Connection and Isolation Panel [NHANES] A nswer Date Recorded Frequency of Communication with Friends and Fami ly Not on file 12/19/2022 Frequency of Social Gatherings with Friends and Family Not on file 12/19/2022 Attends Hindu Services Not on file 12/19 Do you belong to any clubs o r organizations such as moravian groups, unions, fraAvinger or athletic groups, or school groups? Patient declined 12/19/2022 How often do you attend meet ings of the clubs or organizations you belong to? Patient declined 12/19/2022 Are you , , di vorced, , never , or living with a partner? 12/19/2022 PHQ-2 Answer Date Recorded Patient Health Questionnaire-2 Score 0 10/14/2024 Exercise Vital Sign Answer Date Recorde d On average, how many days pe r week do you engage in moderate to strenuous exercise (like a brisk walk)? 6 days Minutes of Exercise per Session Not on file 12/19/2022 Comments Unknown Sex and Gender Information Value Date Recorded Sex Assigned at Not on file Legal Sex Female 7:09 PM EDT Gender Identity Not on file Sexual Orientation Not on file documented as of this encounter Plan of Treatment Upcoming Encounters Date Type Department Care Team (Late st Contact Info) Description 06/21/2025 10:30 AM EST Office Visit [facility] [place] [facility] [address] [place] [address] Candy Gilbert PA [address] [place] [address] documented as of this encounter Visit Diagnoses Not on filedocumented in this encounter Care Teams Assistant Professor Of Theater Relationship Specialty Start Date End Date Candy Gilbert PA [address] [place] [address] PCP - General Family Medicine 08/15/23 documented as of this encounter
--- OUTSIDE RECORDS SUMMARY | 2025-04-12 08:53 | XMS_ITS | Encounter Summary ---
Author Organization [facility] Address [address] [place] [place] [address] Care Team Providers Care Insurance Underwriter Sales Name Role Phone Candy Gilbert Primary Care Provider [phone] Encounter Details Date Type Department Care Team (Late st Contact Info) Description 12/08/2024 Abstract [facility] [facility] [address] [facility] [address] [place] [address] Candy Gilbert PA [address] [facility] [address] [place], [place] [phone] Social History Tobacco Use Types Packs/Day Years [...] and Family Not on file 12/19/2022 Attends Orthodoxy Services Not on file 12/19 Do you belong to any clubs o r organizations such as judaism groups, unions, fraShopEx or athletic groups, or school groups? Patient [...] Visit [facility] [place] [facility] [address] [facility] [address] [place] [address] Candy Gilbert PA [address] [place] [address] documented as of this encounter Visit Diagnoses Not on filedocumented in this encounter Care Teams Insurance Underwriter Sales Relationship Specialty Start Date End Date Candy Gilbert PA [address] [place] [address] PCP - General Family Medicine 08/15/23 documented as of this encounter
--- OUTSIDE RECORDS SUMMARY | 2025-04-12 08:53 | XMS_ITS | Encounter Summary ---
Author Organization [facility] Address [address] [place] [address] Care Team Providers Care Aerospace Medicine Physician Name Role Phone Cali Zhao MD Unavailable [phone] Candy Gilbert Primary Care Provider Encounter Details Date Type Department Care Team (Late st Contact Info) Description 07/17/2023 Orders Only [facility] [place] [facility] [address] [place] [address] A, Unknown Practice [address] [phone] Social History Tobacco Use Types Packs/Day Years [...] and Family Not on file 12/19/2022 Attends Baptist Services Not on file 12/19 Do you belong to any clubs o r organizations such as sabianism groups, unions, fraternal or athletic groups, or school groups? Patient declined 12/19/2022 How often do you attend meet ings of the clubs or organizations you belong to? Patient declined 12/19/2022 Are you , , di vorced, , never , or living with a partner? 12/19/2022 Exercise Vital Sign Answer Date Recorde d [...] Visit [facility] [place] [facility] [address] [place] [address] Candy Gilbert PA [address] [place] [address] documented as of this encounter Procedures Procedure Name Priority Date/Time Associated Diagnosis Comments ELECTROCARDIOGRAM REPORT Routine 024 8:25 AM EST documented in this encounter Results * Electrocardiogram Report (07/10/2023 8:25 AM EST) us Unknown Practice A IN CLINIC/BEDSIDE ORDERABLES Final Result documented in this encounter Visit Diagnoses Not on filedocumented in this encounter Care Teams Aerospace Medicine Physician Relationship Specialty Start Date End Date Cali Zhao MD [address] [place] [address] PCP - [place] [employer] 10/06/20 Candy Gilbert PA [address] [place] [id number] PCP - General Family Medicine 08/15/23 documented as of this encounter
--- OUTSIDE RECORDS SUMMARY | 2025-04-12 08:53 | XMS_ITS | Encounter Summary ---
Author Organization [facility] Address [address] [place] [address] Care Team Providers Care Retort Load Expediter Name Role Phone Cali Zhao MD Unavailable Candy [place] Primary Care Provider [phone] Encounter Details Date Type Department Care Team (Late st Contact Info) Description 07/17/2023 Abstract [facility] [place] [facility] [address] [facility] 110 [place] [address] Jose Cruz Young MD 112 [facility] 110 [place], [place] [id number] Social History Tobacco Use Types Packs/Day Years [...] and Family Not on file 12/19/2022 Attends Sabianist Services Not on file 12/19 Do you belong to any clubs o r organizations such as sikhism groups, unions, fraternal or athletic groups, or [...] [place] Ndi[place] [address] [place] [place] [address] Candy [place] PA [address] [place] [place] [address] documented as of this encounter Visit Diagnoses Not on filedocumented in this encounter Care Teams Retort Load Expediter Relationship Specialty Start Date End Date Cali Zhao MD [address] [place] [address] PCP - Merline Grady 10/06/20 Candy [place] PA [address] [place] [address] PCP - General Family Medicine 08/15/23 documented as of this encounter
--- OUTSIDE RECORDS SUMMARY | 2025-04-12 08:53 | XMS_ITS | Encounter Summary ---
Author Organization [facility] Address [address] [place] [address] Care Team Providers Care Commercial Property Manager Name Role Phone Elias [place] Primary Care Provider [phone] Encounter Details Date Type Department Care Team (Late st Contact Info) Description 06/01/2024 Clinisync Result Encounter [facility] External Department Unsolicited Provider, Generic External Data Social History Tobacco Use Types Packs/Day Years [...] and Family Not on file 12/19/2022 Attends Pentecostal Services Not on file 12/19 Do you belong to any clubs o r organizations such as presybeterian groups, unions, fraternal or athletic groups, or [...] 06/21/2025 10:30 AM EST Office Visit [facility] [place] 112 [facility] 110 [place] [address] Elias [place] PA 112 [facility] 110 [place] [address] documented as of this encounter Procedures Procedure Name Priority Date/Time Associated Diagnosis Comments CA ECHO DOPPLER COMPLETE 06/01/2024 9:35 AM EST documented in this encounter Results * CA ECHO DOPPLER COMPLETE (06/01/2024 9:35 AM EST) Anatomical Region Laterality Modality Other 06/01/2024 9:35 AM EST Narrative 06/01/2024 9:36 AM EST The [address] [address] Cardiology Report Signed Patient: CHESTER UGALDE MR#: [id number] : 1960 Acct:[id number] Age/Sex: 63 / F ADM Date: 06/01/24 Loc: [place] Attending Dr: Arlene Haddad M.D. Ordering Physician: Arlene Haddad M.D. Date of Service: 06/01/24 Procedure(s): CA echo doppler complete Accession Number(s): [id number] cc: Arlene Haddad M.D.; ELIAS [place] Patient Name: CHESTER UGALDE MR#: [id number] : 1960 Exam Date: 06/01/2024 Ordering Doctor: DR ARLENE HADDAD M.D. ECHOCARDIOGRAM REPORT PROCEDURE: CA ECHO DOPPLER COMPLETE INDICATIONS: Palpitations, GARCIA COMPARISON: None. DESCRIPTION: COMPLETE ECHOCARDIOGRAM Real-time transthoracic echocardiography with 2D, M-mode, spectral and color flow Doppler performed. QUALITY: Technical quality was good. LEFT VENTRICLE: Normal chamber size. Normal left ventricular wall thickness. Global left ventricular systolic function is normal. LV EF: Estimated left ventricular ejection fraction is 55%. DIASTOLIC: Grade II diastolic dysfunction. ATRIAL SEPTUM: LEFT ATRIUM: Mild dilatation. RIGHT ATRIUM: Mild dilatation. RIGHT VENTRICLE: Normal chamber size. Normal right ventricular systolic function. TRICUSPID VALVE: Normal mobility and thickness. No stenosis with mild regurgitation. Mild pulmonary hypertension. RVSP 36 mmHg MITRAL VALVE: Normal mobility and thickness. No evidence of mitral valve stenosis. There is no mitral annular calcification. Mild mitral regurgitation. AORTIC VALVE: Normal trileaflet appearance. No visible sclerosis. Normal leaflet mobility. No evidence of aortic valve stenosis. Trivial aortic regurgitation. AORTIC ROOT: Normal diameter and appearance, measuring 3.1 cm. Normal size ascending aorta measuring 3.3 cm. PULMONIC VALVE: Normal thickness and mobility. No stenosis. Trivial regurgitation. PERICARDIUM: No evidence of pericardial effusion. IVC: Collapses with inspirations. Mildly dilated measuring 2.4 cm. PLEURA: CONCLUSION: 1. The left medical is normal in size and exhibits normal systolic function. LVEF is estimated at 55%. 2. Normal right ventricular size and systolic function. 3. Mild biatrial dilatation. 4. Grade 2 diastolic dysfunction. 5. Mild mitral and tricuspid regurgitation. 6. Mildly elevated right-sided pressures. Adult Echocardiography Procedure Report Left Ventricle LVEDD (3.7 - 5.6 cm): 5.14 cm LVESD (2.2 - 4.0 cm): 3.67 cm LVIVS thickness (0.6 - 1.2 cm): 0.75 cm LVPW thickness (0.5 - 1.0 cm): 0.71 cm e': 0.11 m/s E - e': 6.41 LVOT Max Gradient: 4.32 mm[Hg] LVOT Area (cm2): 1.04 m/s Peak Velocity (LVOT): 1.04 m/s Mean Velocity (LVOT): 0.68 m/s LVOT Diameter 2.19 cm Left Ventricular Ejection Fraction: 55 % Left Atrium LA Volume Index (2D A2C): 39.15 ml/m2 Left Atrium Systolic Dimension: 4.39 cm Mitral Valve MV E to A Ratio: 0.78, 0.81 Mitral Valve A-Wave Peak Velocity: 0.86 m/s Mitral Valve E-Wave Peak Velocity: 0.69 m/s Right Ventricle RV Internal Diastolic Dimension: 2.92 cm Aorta AO Root Diam: 3.06 cm Ascending Ao Diam: 3.27 cm Aortic Valve AoV Area (Peak Pedro): 2.87 cm2, 2.87 cm2 AoV Area (VTI): 2.96 cm2, 2.96 cm2 Peak Velocity(Antegrade Flow): 1.37 m/s Peak Gradient(Antegrade Flow): 7.50 mm[Hg] Mean Velocity(Antegrade Flow): 0.90 m/s Mean Gradient(Antegrade Flow): 3.71 mm[Hg] Velocity Time Integral: 33.80 cm Tricuspid Valve Peak Velocity (Regurgitant Flow): 2.19 m/s, 2.18 m/s, 2.66 m/s Pulmonic Valve Peak Velocity: 0.81 m/s Peak Gradient: 2.58 mm[Hg], 2.72 mm[Hg] Right Atrium Right Atrium Systolic Pressure: 55.72 ml, 55.72 ml Dictated by: Char Lemus M.D. on 06/01/2024 at 09:30 Approved by: Char Lemus M.D. on 06/01/2024 at 09:35 Dictated By: CHAR LEMUS Signed By: 06/01/2436 DD/ 4 TD/TT: Awning Hanger: Procedure Note Radiology, Radiologist, MD - 06/01/2024 [place] [address] Cardiology Report Signed Patient: CHESTER UGALDE [facility]#: [id number] : 1960Acct:[id number] Age/Sex: 63 / FADM Date: 06/01/24 Loc: [place] Attending Dr: Arlene Haddad M.D. Ordering Physician: Arlene Haddad M.D. Date of Service: 06/01/24 Procedure(s): CA echo doppler complete Accession Number(s): [id number] cc: Arlene Haddad M.D.; ELIAS GILBERT Patient Name: CHESTER UGALDE MR#: [id number] : 1960 Exam Date: 06/01/2024 Ordering Doctor: DR ARLENE HADDAD M.D. ECHOCARDIOGRAM REPORT PROCEDURE: CA ECHO DOPPLER COMPLETE INDICATIONS: Palpitations, GARCIA COMPARISON: None. DESCRIPTION: COMPLETE ECHOCARDIOGRAM Real-time transthoracic echocardiography with 2D, M-mode, spectral and color flow Dopplerperformed. QUALITY: Technical quality was good. LEFT VENTRICLE: Normal chamber size. Normal left ventricular wall thickness. Global left ventricular systolic function is normal. LV EF: Estimated left ventricular ejection fraction is 55%. DIASTOLIC: Grade II diastolic dysfunction. ATRIAL SEPTUM: LEFT ATRIUM: Mild dilatation. RIGHT ATRIUM: Mild dilatation. RIGHT VENTRICLE: Normal chamber size. Normal right ventricularsystolic function. TRICUSPID VALVE: Normal mobility and thickness. No stenosis with mild regurgitation. Mild pulmonary hypertension. RVSP 36 mmHg MITRAL VALVE: Normal mobility and thickness. No evidence of mitralvalve stenosis. There is no mitral annular calcification. Mild mitral regurgitation. AORTIC VALVE: Normal trileaflet appearance. No visible sclerosis.Normal leaflet mobility. No evidence of aortic valve stenosis. Trivial aortic regurgitation. AORTIC ROOT: Normal diameter and appearance, measuring 3.1 cm. Normalsize ascending aorta measuring 3.3 cm. PULMONIC VALVE: Normal thickness and mobility. No stenosis. Trivial regurgitation. PERICARDIUM: No evidence of pericardial effusion. IVC: Collapses with inspirations. Mildly dilated measuring 2.4 cm. PLEURA: CONCLUSION: 1. The left medical is normal in size and exhibits normal systolicfunction. LVEF is estimated at 55%. 2. Normal right ventricular size and systolic function. 3. Mild biatrial dilatation. 4. Grade 2 diastolic dysfunction. 5. Mild mitral and tricuspid regurgitation. 6. Mildly elevated right-sided pressures. Adult Echocardiography Procedure Report Left Ventricle LVEDD (3.7 - 5.6 cm): 5.14 cm LVESD (2.2 - 4.0 cm): 3.67 cm LVIVS thickness (0.6 - 1.2 cm): 0.75 cm LVPW thickness (0.5 - 1.0 cm): 0.71 cm e': 0.11 m/s E - e': 6.41 LVOT Max Gradient: 4.32 mm[Hg] LVOT Area (cm2): 1.04 m/s Peak Velocity (LVOT): 1.04 m/s Mean Velocity (LVOT): 0.68 m/s LVOT Diameter 2.19 cm Left Ventricular Ejection Fraction: 55 % Left Atrium LA Volume Index (2D A2C): 39.15 ml/m2 Left Atrium Systolic Dimension: 4.39 cm Mitral Valve MV E to A Ratio: 0.78, 0.81 Mitral Valve A-Wave Peak Velocity: 0.86 m/s Mitral Valve E-Wave Peak Velocity: 0.69 m/s Right Ventricle RV Internal Diastolic Dimension: 2.92 cm Aorta AO Root Diam: 3.06 cm Ascending Ao Diam: 3.27 cm Aortic Valve AoV Area (Peak Pedro): 2.87 cm2, 2.87 cm2 AoV Area (VTI): 2.96 cm2, 2.96 cm2 Peak Velocity(Antegrade Flow): 1.37 m/s Peak Gradient(Antegrade Flow): 7.50 mm[Hg] Mean Velocity(Antegrade Flow): 0.90 m/s Mean Gradient(Antegrade Flow): 3.71 mm[Hg] Velocity Time Integral: 33.80 cm Tricuspid Valve Peak Velocity (Regurgitant Flow): 2.19 m/s, 2.18 m/s, 2.66 m/s Pulmonic Valve Peak Velocity: 0.81 m/s Peak Gradient: 2.58 mm[Hg], 2.72 mm[Hg] Right Atrium Right Atrium Systolic Pressure: 55.72 ml, 55.72 ml Dictated by: Char Lemus M.D. on 06/01/2024 at 09:30 Approved by: Char Lemus M.D. on 06/01/2024 at 09:35 Dictated By: CHAR LEMUS Signed By:06/01/24 0936 DD/ TD/TT: Awning Hanger: us Generic External Data Provider [facility] Final Result documented in this encounter Visit Diagnoses Not on filedocumented in this encounter Care Teams Commercial Property Manager Relationship Specialty Start Date End Date Elias [place] PA 112 [facility] 110 [place] [address] PCP - General Family Medicine 08/15/23 documented as of this encounter
--- OUTSIDE RECORDS SUMMARY | 2025-04-12 08:53 | XMS_ITS | Encounter Summary ---
Author Organization [facility] Address [address] [place] [place] [address] Care Team Providers Care Production Tool Engineer Name Role Phone Candy [place] Primary Care Provider [phone] Encounter Details Date Type Department Care Team (Late st Contact Info) Description 11/17/2024 Abstract [facility] [place] [facility] [address] [facility] 110 [place] [address] Candy [place] PA [address] [facility] 110 [place], [place] [id number] Social History Tobacco Use Types Packs/Day Years [...] and Family Not on file 12/19/2022 Attends Moravian Services Not on file 12/19 Do you belong to any clubs o r organizations such as jainism groups, unions, fraHellotravel or athletic groups, or school groups? Patient [...] Visit [facility] [place] [address] [facility] 110 [place] [address] Candy [place] PA [address] [place] [address] documented as of this encounter Visit Diagnoses Not on filedocumented in this encounter Care Teams Production Tool Engineer Relationship Specialty Start Date End Date Candy [place] PA [address] [place] [address] PCP - General Family Medicine 08/15/23 documented as of this encounter
--- OUTSIDE RECORDS SUMMARY | 2025-04-12 08:53 | XMS_ITS | Encounter Summary ---
Author Organization [facility] Address [address] [place] [place] [address] Care Team Providers Care Loan Supervisor Name Role Phone Candy [place] Primary Care Provider [phone] Encounter Details Date Type Department Care Team (Late st Contact Info) Description 10/14/2024 Abstract [facility] [place] [facility] [address] [place] [place] [address] Candy [place] PA [address] [place], [place] [id number] Social History Tobacco Use Types Packs/Day Years [...] and Family Not on file 12/19/2022 Attends Episcopal Services Not on file 12/19 Do you belong to any clubs o r organizations such as episcopal groups, unions, fraternal or athletic groups, or [...] on file documented as of this encounter Functional Status * Over the past 2 weeks, how often have you been bothered by any of the following problems? Question Answer Date of Assessment Author Little interest or pleasure in doing things Not at all 10/14/2024 9:32 AM EDT Anuja Meade LP N Feeling down, depressed, or hopeless Not at all 10/14/2024 9:32 AM EDT Anuja Meade LP N Patient Health Questionnaire -2 Score 0 10/14/2024 9:32 AM EDT Anuja Meade LP N documented as of this encounter Plan of Treatment Upcoming Encounters Date Type Department Care Team (Late st Contact Info) Description 06/21/2025 10:30 AM EST Office Visit [facility] [place] [address] [place] [place] [address] Candy [place] PA [address] [facility] 110 [place] [address] documented as of this encounter Visit Diagnoses Not on filedocumented in this encounter Care Teams Loan Supervisor Relationship Specialty Start Date End Date Candy [place] PA 112 [facility] 110 [place] [address] PCP - General Family Medicine 08/15/23 documented as of this encounter
--- OUTSIDE RECORDS SUMMARY | 2025-04-12 08:53 | XMS_ITS | Encounter Summary ---
Author Organization [facility] Address [address] [place] [address] Care Team Providers Care Airline Attendant Name Role Phone Cali Zhao MD Unavailable [phone] Candy [place] Primary Care Provider [phone] Encounter Details Date Type Department Care Team (Late st Contact Info) Description 04/12/2023 Clinisync Result Encounter [facility] External Department Unsolicited [...] and Family Not on file 12/19/2022 Attends Spiritism Services Not on file 12/19 Do you belong to any clubs o r organizations such as christian groups, unions, fraternal [...] EST Office Visit [facility] [place] 112 [facility] 110 [place] [address] Candy [place] PA 112 [facility] 110 [place] [address] documented as of this encounter Procedures Procedure Name Priority Date/Time Associated Diagnosis Comments JORGE FABIAN DIGITAL SCREEN BILATERAL 04/12/2023 4:26 PM EDT documented in this encounter Results * JORGE FABIAN DIGITAL SCREEN BILATERAL (04/12/2023 4:26 PM EDT) Anatomical Region Laterality Modality Other 04/12/2023 4:26 PM EDT Narrative 04/12/2023 4:31 PM EDT EXAMINATION: SCREENING DIGITAL BILATERAL MAMMOGRAM WITH TOMOSYNTHESIS, 04/12/2023 TECHNIQUE: Screening mammography was performed with tomosynthesis including MLO and CC views of the bilateral breasts. Computer aided detection was used for the interpretation of this exam. COMPARISON: 25 December 2021; 14 December 2020 HISTORY: Screening. Positive family history of breast cancer; both maternal and paternal grandmothers in their 60s. 3 year history of oral contraception. No hormonal replacement therapy or breast interventions. FINDINGS: Breasts are composed of scattered fibroglandular density. No skin thickening, nipple contour changes, suspicious calcifications, suspicious masses, areas of architectural distortion or significant interval changes are noted. IMPRESSION: No evidence of malignancy. Advise annual screening mammography. BI-RADS BIRADS: BIRADS - CATEGORY 1 Negative, no evidence of malignancy. Normal interval follow-up is recommended in 12 months. OVERALL ASSESSMENT - NEGATIVE A letter of notification will be sent to the patient regarding the results. The [employer] recommends annual mammograms for women 40 years and older. Interpreted by: Denice Danielle MD Signed by: Denice Danielle MD 04/12/23 Final result Procedure Note Radiology, Radiologist, MD - 04/12/2023 EXAMINATION: SCREENING DIGITAL BILATERAL MAMMOGRAM WITH TOMOSYNTHESIS, 04/12/2023 TECHNIQUE: Screening mammography was performed with tomosynthesis including MLO andCC views of the bilateral breasts. Computer aided detection was used forthe interpretation of this exam. COMPARISON: 25 December 2021; 14 December 2020 HISTORY: Screening. Positive family history of breast cancer; both maternal and paternal grandmothers in their 60s. 3 year history of oralcontraception. No hormonal replacement therapy or breast interventions. FINDINGS: Breasts are composed of scattered fibroglandular density. No skin thickening, nipple contour changes, suspicious calcifications,suspicious masses, areas of architectural distortion or significant interval changesare noted. IMPRESSION: No evidence of malignancy. Advise annual screening mammography. BI-RADS BIRADS: BIRADS - CATEGORY 1 Negative, no evidence of malignancy. Normal interval follow-up is recommended in 12 months. OVERALL ASSESSMENT - NEGATIVE A letter of notification will be sent to the patient regarding theresults. The [employer] recommends annual mammograms for women40 years and older. Interpreted by: Denice Danielle MD Signed by: Denice Danielle MD 04/12/23 Final result Generic External Data Provider [facility] Final Result documented in this encounter Visit Diagnoses Not on filedocumented in this encounter Care Teams Airline Attendant Relationship Specialty Start Date End Date Cali Zhao MD [address] [place] [address] PCP - Merline Commercial 10/06/20 Candy [place] PA [address] [place] [address] PCP - General Family Medicine 08/15/23 documented as of this encounter
--- OUTSIDE RECORDS SUMMARY | 2025-04-12 08:53 | XMS_ITS | Encounter Summary ---
Author Organization [facility] Address [address] [place] [address] Care Team Providers Care Bingo Manager Name Role Phone Candy [place] Primary Care Provider Encounter Details Date Type Department Care Team (Late st Contact Info) Description 05/07/2024 Abstract [facility] [place] [facility] [address] [facility] 110 [place] [address] Candy [place] PA [address] [facility] 110 [place], [place] [id number] Social History Tobacco Use Types Packs/Day Years [...] and Family Not on file 12/19/2022 Attends Latter-Day Services Not on file 12/19 Do you belong to any clubs o r organizations such as hindu groups, unions, fraCorCardia or athletic groups, or school groups? Patient [...] Visit [facility] [place] [address] [facility] 110 [place] [address] Candy [place] PA [address] [facility] 110 [place] [address] documented as of this encounter Visit Diagnoses Not on filedocumented in this encounter Care Teams Bingo Manager Relationship Specialty Start Date End Date Candy [place] PA [address] [facility] 110 [place] [address] PCP - General Family Medicine 08/15/23 documented as of this encounter
--- OUTSIDE RECORDS SUMMARY | 2025-04-12 08:53 | XMS_ITS | Encounter Summary ---
Author Organization [facility] Address [address] [place] [place] [address] Care Team Providers Care Model And Pattern Supervisor Name Role Phone Cali Zhao MD Unavailable [phone] Candy [place] Primary Care Provider [phone] Encounter Details Date Type Department Care Team (Late st Contact Info) Description 02/08/2023 Abstract [facility] [place] [facility] [address] [facility] 110 [place] [address] Candy [place] PA [address] [place] [address] Social History Tobacco Use Types Packs/Day Years Used Date Smoking Tobacco: Never Smokeless Tobacco: Never Tobacco Cessation:Counseling Given: Not Answered Alcohol Use Standard Drinks/Week Comments Not Currently [...] and Family Not on file 12/19/2022 Attends Religion Services Not on file 12/19 Do you belong to any clubs o r organizations such as anglican groups, unions, fraternal or athletic groups, or [...] [place] Ndiaye [address] [place] [address] Candy [place] PA [address] [place] [address] documented as of this encounter Visit Diagnoses Not on filedocumented in this encounter Care Teams Model And Pattern Supervisor Relationship Specialty Start Date End Date Cali Zhao MD [address] [place] [address] PCP - [place] Commercial 10/06/20 Candy [place] PA [address] [place] [address] PCP - General Family Medicine 08/15/23 documented as of this encounter
--- OUTSIDE RECORDS SUMMARY | 2025-04-12 08:53 | XMS_ITS | Encounter Summary ---
Author Organization [facility] Address [address] [place] [address] Care Team Providers Care Chemistry Intern Name Role Phone Candy [place] Primary Care Provider [phone] Encounter Details Date Type Department Care Team (Late st Contact Info) Description 02/12/2025 Orders Only [facility] [place] [facility] [address] [place] [place] [address] Candy [place] PA [address] [place], [place] [id number] Abnormal finding on imaging of liver; Hepatic lesion Social History Tobacco Use Types Packs/Day [...] and Family Not on file 12/19/2022 Attends Baptism Services Not on file 12/19 Do you belong to any clubs o r organizations such as druze groups, unions, fraternal or athletic groups, or [...] [place] Ndiaye [address] [place] [address] Candy [place] PA [address] [place] [address] documented as of this encounter Procedures Procedure Name Priority Date/Time Associated Diagnosis Comments MR ABDOMEN W AND WO CONTRAST Routine 01/25/2025 Abnormal finding on imaging of liver Hepatic lesion documented in this encounter Results * (ABNORMAL) MR abdomen w and wo contrast (01/25/2025) 01/25/2025 Narrative Candy [place] PA - 02/12/2025 7:32 AM EDT See scanned document for report us Candy PRUITT IMG MRI PROCEDURES Final Resul t documented in this encounter Visit Diagnoses Diagnosis Abnormal finding on imaging of liver Hepatic lesion documented in this encounter Care Teams Chemistry Intern Relationship Specialty Start Date End Date Candy [place] PA 112 [place] [address] PCP - General Family Medicine 08/15/23 documented as of this encounter
--- OUTSIDE RECORDS SUMMARY | 2025-04-12 08:53 | XMS_ITS | Encounter Summary ---
Author Organization [facility] Address [address] [place] [place] [address] Care Team Providers Care Drum Operator Name Role Phone Candy [place] Primary Care Provider [phone] Encounter Details Date Type Department Care Team (Late st Contact Info) Description 12/10/2024 Abstract [facility] [place] [facility] [address] [facility] 110 [place] [address] Candy [place] PA [address] [facility] 110 [place], [place] [id number] Social History Tobacco Use Types Packs/Day Years [...] and Family Not on file 12/19/2022 Attends Druze Services Not on file 12/19 Do you belong to any clubs o r organizations such as restoration groups, unions, [email or web address] or athletic groups, or school groups? Patient [...] [facility] [address] [place] [address] Candy [place] PA [address] [place] [address] documented as of this encounter Visit Diagnoses Not on filedocumented in this encounter Care Teams Drum Operator Relationship Specialty Start Date End Date Candy [place] PA [address] [place] [address] PCP - General Family Medicine 08/15/23 documented as of this encounter
--- OUTSIDE RECORDS SUMMARY | 2025-04-12 08:53 | XMS_ITS | Encounter Summary ---
Author Organization [facility] Address [address] [facility] [place] [address] Care Team Providers Care Regulatory Compliance Officer Name Role Phone Cali Zhao MD Unavailable [phone] Candy Gilbert Primary Care Provider Encounter Details Date Type Department Care Team (Late st Contact Info) Description 08/27/2023 Abstract [facility] [place] [facility] 112 [facility] 110 [place] [address] Candy Gilbert PA [address] [place] [address] Social History Tobacco Use Types Packs/Day Years [...] and Family Not on file 12/19/2022 Attends Alevism Services Not on file 12/19 Do you belong to any clubs o r organizations such as buddhist groups, unions, fraternal or athletic groups, or [...] [place] Ndiaye [address] [place] [address] Candy Gilbert PA [address] [place] [address] documented as of this encounter Visit Diagnoses Not on filedocumented in this encounter Care Teams Regulatory Compliance Officer Relationship Specialty Start Date End Date Cali Zhao MD [address] [place] [address] PCP - Merline Grady 10/06/20 Candy Gilbert PA [address] [place] [address] PCP - General Family Medicine 08/15/23 documented as of this encounter
--- OUTSIDE RECORDS SUMMARY | 2025-04-12 08:53 | XMS_ITS | Encounter Summary ---
Author Organization [facility] Address [address] [place] [place] [address] Care Team Providers Care Knockout Worker Name Role Phone Candy Gilbert Primary Care Provider [phone] Encounter Details Date Type Department Care Team (Late st Contact Info) Description 02/12/2025 Abstract [facility] [place] [facility] [address] [place] [place] [address] Candy Gilbert PA [address] [place], [place] [id number] Social History Tobacco Use Types Packs/Day Years [...] and Family Not on file 12/19/2022 Attends Yazidi Services Not on file 12/19 Do you belong to any clubs o r organizations such as cheondoism groups, unions, fraPR Slides or athletic groups, or school groups? Patient [...] Visit [facility] [place] [address] [facility] 110 [place] [address] Candy Gilbert PA [address] [place] [address] documented as of this encounter Visit Diagnoses Not on filedocumented in this encounter Care Teams Knockout Worker Relationship Specialty Start Date End Date Candy Gilbert PA [address] [place] [address] PCP - General Family Medicine 08/15/23 documented as of this encounter
--- OUTSIDE RECORDS SUMMARY | 2025-04-12 08:53 | XMS_ITS | Encounter Summary ---
Author Organization [facility] Address [address] [place] [place] [address] Care Team Providers Care Wooden Box Maker Name Role Phone Candy Gilbert Primary Care Provider [phone] Encounter Details Date Type Department Care Team (Late st Contact Info) Description 12/10/2024 Abstract [facility] [place] [facility] [address] [facility] 110 [place] [address] Candy Gilbert PA [address] [facility] 110 [place], [place] [id number] Social History Tobacco Use Types Packs/Day Years [...] and Family Not on file 12/19/2022 Attends Jewish Services Not on file 12/19 Do you belong to any clubs o r organizations such as holiness groups, unions, fraZephyrus Biosciences or athletic groups, or school groups? Patient [...] [address] [facility] 110 [place] [address] Candy Gilbert PA [address] [place] [address] documented as of this encounter Visit Diagnoses Not on filedocumented in this encounter Care Teams Wooden Box Maker Relationship Specialty Start Date End Date Candy Gilbert PA [address] [place] [address] PCP - General Family Medicine 08/15/23 documented as of this encounter
--- OUTSIDE RECORDS SUMMARY | 2025-04-12 08:53 | XMS_ITS | Encounter Summary ---
Author Organization [facility] Address [address] [place] [place] [address] Care Team Providers Care Consumer Insight Manager Name Role Phone Candy Gilbert Primary Care Provider [phone] Encounter Details Date Type Department Care Team (Late st Contact Info) Description 06/01/2024 Abstract [facility] [place] [facility] [address] [facility] 110 [place] [address] Candy Gilbert PA [address] [facility] 110 [place], [place] [id number] Social History Tobacco Use Types Packs/Day Years [...] any clubs o r organizations such as jehovah's witness groups, unions, fraGalil Medical or athletic groups, or school groups? Patient [...] Visit [facility] [place] Ndi[place] [address] [facility] 110 [place] [address] Candy Gilbert PA [address] [facility] 110 [place] [address] documented as of this encounter Visit Diagnoses Not on filedocumented in this encounter Care Teams Consumer Insight Manager Relationship Specialty Start Date End Date Candy Gilbert PA [address] [facility] 110 [place] [address] PCP - General Family Medicine 08/15/23 documented as of this encounter
--- OUTSIDE RECORDS SUMMARY | 2025-04-12 08:53 | XMS_ITS | Encounter Summary ---
Author Organization [facility] Address [address] [place] [address] Care Team Providers Care Plating Equipment Tender Name Role Phone Candy Gilbert Primary Care Provider [phone] Encounter Details Date Type Department Care Team (Late st Contact Info) Description 06/08/2024 Abstract [facility] [place] [facility] [address] [facility] 110 [place] [address] Candy Gilbert PA [address] [facility] 110 [place], [place] [id number] Social History Tobacco Use Types Packs/Day Years [...] and Family Not on file 12/19/2022 Attends Mu-Ism Services Not on file 12/19 Do you belong to any clubs o r organizations such as hindu groups, unions, fraHealthyRoad or athletic groups, or school groups? Patient [...] Visit [facility] [place] [address] [facility] 110 [place] [address] Candy Gilbert PA [address] [facility] 110 [place] [address] documented as of this encounter Visit Diagnoses Not on filedocumented in this encounter Care Teams Plating Equipment Tender Relationship Specialty Start Date End Date Candy Gilbert PA [address] [facility] 110 [place] [address] PCP - General Family Medicine 08/15/23 documented as of this encounter
--- OUTSIDE RECORDS SUMMARY | 2025-04-12 08:53 | XMS_ITS | Encounter Summary ---
Author Organization [facility] Address [address] [place] [address] Care Team Providers Care Sweet Pickled Fruit Maker Name Role Phone Elias Gilbert Primary Care Provider [phone] Encounter Details Date Type Department Care Team (Late st Contact Info) Description 06/02/2024 Clinisync Result Encounter [facility] External Department Unsolicited [...] any clubs o r organizations such as synagogue groups, unions, fraternal or athletic groups, or [...] 10:30 AM EST Office Visit [facility] 112 [facility] 110 [place] [address] Elias Gilbert PA 112 [facility] 110 [place] [address] documented as of this encounter Procedures Procedure Name Priority Date/Time Associated Diagnosis Comments NM SHAY PERF SPECT REST STR 06/02/2024 1:20 PM EST documented in this encounter Results * NM SHAY PERF SPECT REST STR (06/02/2024 1:20 PM EST) Anatomical Region Laterality Modality Other 06/02/2024 1:20 PM EST Narrative 06/02/2024 1:21 [place] [address] Nuclear Medicine Report Signed Patient: CHESTER UGALDE MR#: [id number] : 1960 Acct:[id number] Age/Sex: 63 / F ADM Date: 06/01/24 Loc: NM Attending Dr: Arlene Haddad M.D. Ordering Physician: Arlene Haddad M.D. Date of Service: 06/01/24 Procedure(s): NM shay perf SPECT rest str Accession Number(s): [id number] cc: Arlene Haddad M.D.; ELIAS GILBERT Patient Name: CHESTER UGALDE MR#: [id number] : 1960 Exam Date: 06/01/2024 Ordering Doctor: DR ARLENE HADDAD M.D. RADIOLOGY REPORT PROCEDURE: NM SHAY PERF SPECT REST STR COMPARISON: None. INDICATIONS: SHORTNESS OF BREATH TECHNIQUE: Exam Description: Stress/Rest one day protocol gated SPECT Rest Imagin.4 mCi Tc-99m Cardiolite IV on 06/01/2024 Stress Imaging 31.2 mCi Tc-99m Cardiolite IV on 06/01/2024 Exercise Protocol: 0.4 mg Lexiscan given IV Heart Rate (bpm): Rest: 63 Max: 102 PMHR: 64 Blood Pressure: Rest: 126/78 Max: 132/76 Symptoms: Rest and peak stress ECG findings were normal and the exercise portion of the study was normal per attending physician Dr. Lemus . For more details please see separate cardiac stress test report. FINDINGS: QUALITY OF STUDY: Excellent. PERFUSION DEFECT: None. LOCATION: N/A SIZE: N/A. SEVERITY: N/A. TYPE: N/A. WALL MOTION: Normal. LV SIZE: Normal. 70 mL. TID / TCD: None; 0.9 LVEF: Normal. Calculated EF 75%. SUMMARY: Myocardial perfusion imaging study is NORMAL. CONCLUSION: 1. Normal nuclear medicine myocardial perfusion scan. Dictated by: Jeff Martinez M.D. on 06/02/2024 at 13:14 Approved by: Jeff Martinez M.D. on 06/02/2024 at 13:20 Dictated By: Jeff Martinez M.D. Signed By: 06/02/24 1321 DD/ 1320 TD/TT: Disaster Recovery Specialist: Procedure Note Radiology, Radiologist, MD - 06/02/2024 The [place] [id number] Nuclear Medicine Report Signed Patient: CHESTER UGALDE DMR#: [id number] : 1960Acct:[id number] Age/Sex: 63 / FADM Date: 06/01/24 Loc: NM Attending Dr: Arlene Haddad M.D. Ordering Physician: Arlene Haddad M.D. Date of Service: 06/01/24 Procedure(s): NM shay perf SPECT rest str Accession Number(s): [id number] cc: Arlene Haddad M.D.; ELIAS GILBERT Patient Name: CHESTER UGALDE MR#: [id number] : 1960 Exam Date: 06/01/2024 Ordering Doctor: DR ARLENE HADDAD M.D. RADIOLOGY REPORT PROCEDURE: NM SHAY PERF SPECT REST STR COMPARISON: None. INDICATIONS: SHORTNESS OF BREATH TECHNIQUE: Exam Description: Stress/Rest one day protocol gated SPECT Rest Imagin.4 mCi Tc-99m Cardiolite IV on 06/01/2024 Stress Imaging 31.2 mCi Tc-99m Cardiolite IV on 06/01/2024 Exercise Protocol: 0.4 mg Lexiscan given IV Heart Rate (bpm): Rest: 63 Max: 102 PMHR: 64 Blood Pressure: Rest: 126/78 Max: 132/76 Symptoms: Rest and peak stress ECG findings were normal and the exercise portion ofthe study was normal per attending physician Dr. Lemus . For more details please see separate cardiac stress test report. FINDINGS: QUALITY OF STUDY: Excellent. PERFUSION DEFECT: None. LOCATION: N/A SIZE: N/A. SEVERITY: N/A. TYPE: N/A. WALL MOTION: Normal. LV SIZE: Normal. 70 mL. TID / TCD: None; 0.9 LVEF: Normal. Calculated EF 75%. SUMMARY: Myocardial perfusion imaging study is NORMAL. CONCLUSION: 1. Normal nuclear medicine myocardial perfusion scan. Dictated by: Jeff Martinez M.D. on 06/02/2024 at 13:14 Approved by: Jeff Martinez M.D. on 06/02/2024 at 13:20 Dictated By: Jeff Martinez M.D. Signed By:06/02/24 1321 DD/ 1320 TD/TT: Disaster Recovery Specialist: Generic External Data Provider [facility] Final Result documented in this encounter Visit Diagnoses Not on filedocumented in this encounter Care Teams Sweet Pickled Fruit Maker Relationship Specialty Start Date End Date Elias Gilbert PA [address] [place] [id number] PCP - General Family Medicine 08/15/23 documented as of this encounter
--- OUTSIDE RECORDS SUMMARY | 2025-04-12 08:53 | XMS_ITS | Encounter Summary ---
Author Organization [facility] Address [address] [place] [address] Care Team Providers Care Knitter Wire Mesh Name Role Phone Cali Zhao MD Unavailable [phone] Candy Gilbert Primary Care Provider [phone] Reason for Visit * Reason Comments Med Refill Encounter Details Date Type Department Care Team (Late st Contact Info) Description 03/21/2023 Refill [facility] [address] [place] [address] Cali Zhao MD 112 [facility] [address] [place] [address] Wanda's disease Social History Tobacco Use Types Packs/Day Years [...] and Family Not on file 12/19/2022 Attends Oriental Orthodox Services Not on file 12/19 Do you [...] [place] Ndiaye [address] [place] [address] Candy Gilbert PA [address] [place] [address] documented as of this encounter 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
--- OUTSIDE RECORDS SUMMARY | 2025-04-12 08:53 | XMS_ITS | Encounter Summary ---
Author Organization [facility] Address [address] [place] [address] Care Team Providers Care Mandarin Teacher Name Role Phone Elias Gilbert Primary Care Provider [phone] Encounter Details Date Type Department Care Team (Late st Contact Info) Description 05/05/2024 Clinisync Result Encounter [facility] External Department Unsolicited Elias Gilbert PA [address] [place] [address] Social History Tobacco Use Types Packs/Day Years [...] r organizations such as judaism groups, unions, fraternal [...] Office Visit [facility]ban Ndiaye [address] [facility] 110 [place] [address] Elias Gilbert PA 112 [facility] 110 [place] [address] documented as of this encounter Procedures Procedure Name Priority Date/Time Associated Diagnosis Comments HOLTER MONITOR 8 TO 15 DAYS 05/05/2024 1:14 PM EDT documented in this encounter Results * Holter monitor 8 to 15 days (05/05/2024 1:14 PM EDT) Anatomical Region Laterality Modality Other 05/05/2024 1:14 PM EDT Narrative 05/05/2024 11:18 PM EDT The [address] [address] Cardiology Report Signed Patient: CHESTER UGALDE MR#: [id number] : 1960 Acct:[id number] Age/Sex: 63 / F ADM Date: 04/09/24 Loc: CARD Attending Dr: ELIAS GILBERT Ordering Physician: ELIAS GILBERT Date of Service: 04/09/24 Procedure(s): CA holter monitor 7-15 days Accession Number(s): [id number] cc: ELIAS GILBERT [facility] Test Date: 2024-05-05 Pat Name: CHESTER UGALDE Department: Room: - Gender: Female Cement Loader: : 1960 Requested By: 821 Order Number: [id number] Reading MD: VIRGIL BAILON Interpretive Statements Predominant rhythm is sinus with average rate of 68 bpm Tachycardia - max rate of 188 bpm (SVT) Bradycardia - min rate of 41 bpm Ventricular ectopy - 60,497 total, 5% burden - 60,096 PVC - 374 couplets NSVT - 5 episodes w/ longest episode of 9 beats Patient triggered events: 40 - associated with SVT, VE, SVE, bradycardia - associated with symptoms of flutter, palpitations, chest pain, SOB Impression: Predominant rhythm is sinus with average rate of 68 bpm Fastest rate of 188 bpm (SVT) and slowest rate of 41 bpm 60,096 PVC, 374 couplets 5 episodes of NSVT w/ longest duration of 9 beats 89 episodes of PSVT w/ fastest rate of 188 bpm and longest episode of 10 sec No atrial fibrillation No pauses or blocks Electronically Signed On 05-05-2024 23:18:22 EDT by VIRGIL BAILON Dictated By: Virgil Bailon D.O. 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: : 1960 Requested By: 821 Order Number: [id number] Reading MD: VIRGIL BAILON Interpretive Statements Predominant rhythm is sinus with average rate of 68 bpm Tachycardia - max rate of 188 bpm (SVT) Bradycardia - min rate of 41 bpm Ventricular ectopy - 60,497 total, 5% burden - 60,096 PVC - 374 couplets NSVT - 5 episodes w/ longest episode of 9 beats Patient triggered events: 40 - associated with SVT, VE, SVE, bradycardia - associated with symptoms of flutter, palpitations, chest pain, SOB Impression: Predominant rhythm is sinus with average rate of 68 bpm Fastest rate of 188 bpm (SVT) and slowest rate of 41 bpm 60,096 PVC, 374 couplets 5 episodes of NSVT w/ longest duration of 9 beats 89 episodes of PSVT w/ fastest rate of 188 bpm and longest episode of 10sec No atrial fibrillation No pauses or blocks Electronically Signed On 05-05-2024 23:18:22 EDT by VIRGIL BAILON Dictated By: Virgil Bailon D.O. Signed By:05/05/248 05/05/242317 DD/ 1314 TD/TT: Case Monitor: Elias PRUITT [facility] PROCEDURES Final Result documented in this encounter Visit Diagnoses Not on filedocumented in this encounter Care Teams Mandarin Teacher Relationship Specialty Start Date End Date Elias Gilbert PA [address] [place] [address] PCP - General Family Medicine 08/15/23 documented as of this encounter
--- OUTSIDE RECORDS SUMMARY | 2025-04-12 08:53 | XMS_ITS | Encounter Summary ---
Author Organization [facility] Address [address] [place] [address] Care Team Providers Care University Relations Director Name Role Phone Cali Zhao MD Unavailable [phone] Candy Gilbert Primary Care Provider [phone] Encounter Details Date Type Department Care Team (Late st Contact Info) Description 04/15/2023 Orders Only [facility] [place] [facility] [address] [place] [address] A, Unknown Practice [address] [place] [phone] Social History Tobacco Use Types Packs/Day Years [...] and Family Not on file 12/19/2022 Attends Sikh Services Not on file 12/19 Do you belong to any clubs o r organizations such as restoration groups, unions, fraternal or athletic groups, or [...] Office Visit [facility] [place] Ndi[place] [address] [facility] [address] [place] [address] Candy Gilbert PA [address] [place] [address] documented as of this encounter Procedures Procedure Name Priority Date/Time Associated Diagnosis Comments MAMMOGRAM* Routine 04/12/2023 8:21 AM EDT documented in this encounter Results * MAMMOGRAM* (04/12/2023 8:21 AM EDT) Anatomical Region Laterality Modality Radiographic Lucy ging us Unknown Practice A IMG XR PROCEDURES Final Resul t documented in this encounter Visit Diagnoses Not on filedocumented in this encounter Care Teams University Relations Director Relationship Specialty Start Date End Date Cali Zhao MD [address] [place] [address] PCP - [place] 10/06/20 Candy Gilbert PA [address] [place] [id number] PCP - General Family Medicine 08/15/23 documented as of this encounter
--- OUTSIDE RECORDS SUMMARY | 2025-04-12 08:53 | XMS_ITS | Encounter Summary ---
Author Organization [facility] Address [address] [place] [address] Care Team Providers Care Mail Processing Clerk Name Role Phone Candy Gilbert Primary Care Provider [phone] Encounter Details Date Type Department Care Team (Late st Contact Info) Description 04/27/2024 Clinisync Result Encounter [facility] External Department Unsolicited [...] and Family Not on file 12/19/2022 Attends Christian Services Not on file 12/19 Do you belong to any clubs o r organizations such as alevism groups, unions, fraternal or athletic groups, or [...] 10:30 AM EST Office Visit [facility] 112 [facility] 110 [place] [address] Candy iGlbert PA 112 [facility] 110 [place] [address] documented as of this encounter Procedures Procedure Name Priority Date/Time Associated Diagnosis Comments JORGE FABIAN DIGITAL SCREEN BILATERAL 04/27/2024 8:15 AM EDT documented in this encounter Results * JORGE FABIAN DIGITAL SCREEN BILATERAL (04/27/2024 8:15 AM EDT) Anatomical Region Laterality Modality Other 04/27/2024 8:15 AM EDT Narrative 04/27/2024 8:19 AM EDT EXAMINATION: SCREENING DIGITAL BILATERAL MAMMOGRAM [...] to the patient regarding the results. [employer] recommends annual mammograms for women 40 years and older. Performing Facility: [facility] [address] [place] [address]. [address] [place] [address] Interpreted by: Denice Danielle MD Signed by: Denice Danielle MD 04/27/24 Final result Procedure Note Radiology, Radiologist, - 04/27/2024 EXAMINATION: SCREENING DIGITAL BILATERAL MAMMOGRAM WITH TOMOSYNTHESIS, 04/24/2024 TECHNIQUE: Screening mammography was performed with tomosynthesis including MLO andCC views of the bilateral breasts. Computer aided detection was used forthe interpretation of this exam. COMPARISON: 12 April 2023; 25 December 2021 HISTORY: Screening. Positive family history of breast cancer; maternal grandmotherat 60 maternal great grandmother. 3 year history of oral contraception.No hormonal replacement therapy or breast interventions. TC score 9.21 FINDINGS: Bilateral breasts are composed of scattered fibroglandular density. Noskin thickening, nipple contour changes, suspicious calcifications,suspicious masses, areas of architectural distortion or significant interval changesare noted. IMPRESSION: No evidence of malignancy seen in either breast. Advise annualscreening mammography. Breast tissue can be either dense or not dense. Dense tissue makes itharder to find breast cancer on a mammogram and also raises the risk ofdeveloping breast cancer. Your breast tissue is NOT DENSE. Talk to your health care provider about breast density, risk for breast cancer and yourindividual situation. BI-RADS 1 BIRADS: BIRADS - CATEGORY 1 Negative, no evidence of malignancy. Normal interval follow-up is recommended in 12 months. OVERALL ASSESSMENT - NEGATIVE A letter of notification will be sent to the patient regarding theresults. The [employer] recommends annual mammograms for women40 years and older. Performing Facility: [facility] [address] [place], [place] [address] Interpreted by: Denice Danielle MD Signed by: Denice Danielle MD 04/27/24 Final result Generic External Data Provider [facility] Final Result documented in this encounter Visit Diagnoses Not on filedocumented in this encounter Care Teams Mail Processing Clerk Relationship Specialty Start Date End Date Candy Gilbert PA [address] [place] [address] 110 [place] [address] PCP - General Family Medicine 08/15/23 documented as of this encounter
--- OUTSIDE RECORDS SUMMARY | 2025-04-12 08:53 | XMS_ITS | Encounter Summary ---
Author Organization [facility] Address [address] [place] [address] Care Team Providers Care Truck Loader Name Role Phone Candy Gilbert Primary Care Provider [phone] Encounter Details Date Type Department Care Team (Late st Contact Info) Description 12/11/2024 Results Follow-Up [facility] [address] [place] [address] Candy Gilbert PA [address] [place], [place] [id number] RIGHT UPPER QUADRANT Social History Tobacco Use Types Packs/Day Years [...] and Family Not on file 12/19/2022 Attends Mormonism Services Not on file 12/19 Do you belong to any clubs o r organizations such as anglican groups, unions, fra123people or athletic groups, or school groups? Patient [...] [place] Ndi[place] [address] [place] [address] Candy Gilbert PA [address] [place] [address] documented as of this encounter Visit Diagnoses Not on filedocumented in this encounter Care Teams Truck Loader Relationship Specialty Start Date End Date Candy Gilbert PA [address] [place] [address] PCP - General Family Medicine 08/15/23 documented as of this encounter
--- OUTSIDE RECORDS SUMMARY | 2025-04-12 08:53 | XMS_ITS | Encounter Summary ---
Author Organization [facility] Address [address] [place] [place] [address] Care Team Providers Care Senior Mechanical Designer Name Role Phone Candy Gilbert Primary Care Provider [phone] Encounter Details Date Type Department Care Team (Late st Contact Info) Description 12/09/2024 Abstract [facility] [address] [facility] 110 [place] [address] Candy Gilbert PA [address] [facility] 110 [place], [place] [id number] Social History Tobacco Use Types Packs/Day Years [...] any clubs o r organizations such as congregation groups, unions, fraFamilyLeaf or athletic groups, or school groups? Patient [...] Visit [facility] [place] [facility] [address] [facility] 110 [place] [address] Candy Gilbert PA [address] [place] [address] documented as of this encounter Visit Diagnoses Not on filedocumented in this encounter Care Teams Senior Mechanical Designer Relationship Specialty Start Date End Date Candy Gilbert PA [address] [place] [address] PCP - General Family Medicine 08/15/23 documented as of this encounter
--- OUTSIDE RECORDS SUMMARY | 2025-04-12 08:53 | XMS_ITS | Encounter Summary ---
Author Organization [facility] Address [address] [place] [place] [address] Care Team Providers Care Financial Services Technician Name Role Phone Candy Gilbert Primary Care Provider [phone] Encounter Details Date Type Department Care Team (Late st Contact Info) Description 05/22/2024 Abstract [facility] [address] [facility] 110 [place] [address] Candy Gilbert PA [address] [facility] 110 [place], [place] [phone] Social History Tobacco Use Types Packs/Day Years [...] and Family Not on file 12/19/2022 Attends [employer] Services Not on file 12/19 Do you belong to any clubs o r organizations such as sikhism groups, unions, fraOzy Media or athletic groups, or school groups? Patient [...] Visit [facility] [place] [address] [facility] 110 [place] [address] Candy Gilbert PA [address] [facility] 110 [place] [address] documented as of this encounter Visit Diagnoses Not on filedocumented in this encounter Care Teams Financial Services Technician Relationship Specialty Start Date End Date Candy Gilbert PA [address] [facility] 110 [place] [address] PCP - General Family Medicine 08/15/23 documented as of this encounter
--- OUTSIDE RECORDS SUMMARY | 2025-04-12 08:53 | XMS_ITS | Encounter Summary ---
Author Organization [facility] Address [address] [place] [address] Care Team Providers Care Electrical And Instrumentation Mechanic Name Role Phone Candy Gilbert Primary Care Provider [phone] Encounter Details Date Type Department Care Team (Late st Contact Info) Description 12/18/2024 Abstract [facility] [address] [facility] 110 [place] [address] Candy Gilbert PA [address] [facility] 110 [place], [place] [phone] Social History Tobacco Use Types Packs/Day Years [...] and Family Not on file 12/19/2022 Attends Mandaeism Services Not on file 12/19 Do you belong to any clubs o r organizations such as hoahaoism groups, unions, fraDNA Guide or athletic groups, or school groups? Patient [...] Visit [facility] [place] [facility] [address] [facility] 110 [place] [address] Candy Gilbert PA [address] [place] [address] documented as of this encounter Visit Diagnoses Not on filedocumented in this encounter Care Teams Electrical And Instrumentation Mechanic Relationship Specialty Start Date End Date Candy Gilbert PA [address] [place] [address] PCP - General Family Medicine 08/15/23 documented as of this encounter
--- OUTSIDE RECORDS SUMMARY | 2025-04-12 08:53 | XMS_ITS | Encounter Summary ---
Author Organization [facility] Address [address] [place] [place] [address] Care Team Providers Care Principal Archaeologist Name Role Phone Candy Gilbert Primary Care Provider [phone] Encounter Details Date Type Department Care Team (Late st Contact Info) Description 12/09/2024 Abstract [facility] [address] [facility] 110 [place] [address] Candy Gilbert PA [address] [facility] 110 [place], [place] [phone] Social History Tobacco Use Types Packs/Day Years [...] and Family Not on file 12/19/2022 Attends Mosque Services Not on file 12/19 Do you belong to any clubs o r organizations such as judaism groups, unions, fraMagellan Bioscience Group or athletic groups, or school groups? Patient [...] Visit [facility] [place] [address] [facility] 110 [place] [address] Candy Gilbert PA [address] [place] [address] documented as of this encounter Visit Diagnoses Not on filedocumented in this encounter Care Teams Principal Archaeologist Relationship Specialty Start Date End Date Candy Gilbert PA [address] [place] [address] PCP - General Family Medicine 08/15/23 documented as of this encounter
--- OUTSIDE RECORDS SUMMARY | 2025-04-12 08:54 | XMS_ITS | Clinical Summary ---
Author Organization [facility] Address [address] [place] [address] Care Team Providers Care Wine Fermenter Name Role Phone Candy Gilbert PA-C Primary [...] esophagitis) 10/22/2024 GERD (gastroesophageal reflux disease) 5 [place] grade 3 cystocele 02/01/2022 Overflow incontinence 02/01/2022 Cystocele REPAIR 02/01/2022 02/01/2022 Overview (02/02/2022): PVR=85 ml S/P anterior colporrhaphy 02/01/2022 Diverticulosis of colon 12/21/2021 History of gastric ulcer 12/21/2021 Tubular adenoma 12/21/2021 Eosinophilic esophagitis 12/21/2021 Vitamin D deficiency 11/20/2021 Vitamin B-complex deficiency 11/20/2021 Thoracic spondylosis without myelopathy 11/21/19 22 Primary osteoarthritis 11/20/2021 Organic mixed sleep disorder [...] Encounters Date Type Department Care Team Description 04/01/2025 3:45 PM EDT Office Visit [facility] Gastroenterology [address] [place] [phone] Constantine Sanchez MD EE (eosinophilic esophagitis) (Primary Dx); Diverticulosis of colon; History of gastric ulcer; Eosinophilic esophagitis; Gastric mass= ULCER with endoscopic DX; Weight loss; Liver lesion 03/19/2025 Telephone [facility] G[facility]enter[facility] [address] [place] [phone] Constantine Sanchez MD Appointment Requested 03/11/2025 11:15 AM EDT [place]est[facility] [place] [facility] [address] [place] [address] Amita Kirkland MD Crawford, Jodi M, LAUNDRY AIDE - SALES AND MARKETING DIRECTOR 03/11/2025 11:15 AM EDT - 03/11/2025 11:45 AM EDT Surgery [facility] OR [address] [place] [address] Constantine Sanchez MD ESOPHAGOGASTRODUODENOSCOPY BIOPSY 03/11/2025 9:29 AM EDT - 03/11/2025 12:17 PM EDT Hospital Encounter [facility] [address] [place] [address], [place] [address] Constantine Sanchez MD EE (eosinophilic esophagitis); Diverticulosis of colon; Weight loss Discharge Disposition: Home or Self Care 03/11/2025 Travel 02/16/2025 Telephone [facility] G[facility]enterology [address] [facility] [address] [facility] [address] [place] [address] Constantine Sanchez MD Other 02/09/2025 Prep for Procedure [facility] [address] [place] [address] Constantine Sanchez MD 02/08/2025 Telephone [facility] Gastroenterology [address] [place] [address] [place] [phone] Constantine Sanchez MD missed call from Last 3 Months Immunizations Immunization Administration Dates Next Due TDaP, ADACEL (age 10y-64y), BOOSTRIX (age 10y+), IM, 0.5mL 01/21/2014 Family History Medical History Relation Name Comments Heart Disease Brother 1 Diabetes Father Horacio Heart Attack Father Horacio Heart Disease Father Horacio Breast Cancer Maternal Grandmother Kenyan >80 Cancer Maternal Grandmother Kenyan Hypertension Mother Su Breast Cancer Other MGrGM >80 Cancer Paternal Grandmother Staryou Lung Cancer Paternal Grandmother Syed Colon Cancer Neg Hx Eclampsia Neg Hx Ovarian Cancer Neg Hx Labor Neg Hx Spont Abortions Neg Hx Stroke Neg Hx Relation Name Status Comments Brother 1 Alive Brother 2 Alive Brother 3 Alive Father Horacio (Age 73) MS Maternal Grandfather Maternal Grandmother Kenyan Mother Su Alive Other MGrGM Paternal Grandfather Paternal Grandmother Starner Sister 1 Alive Sister 2 Alive Social [...] Pulse 65 04/01/2025 4:06 PM EDT Temperature 36.2 C (97.2 F) 03/11/2025 12:13 PM EDT Respiratory Rate 13 03/11/2025 12:00 PM EDT Oxygen Saturation 98% 03/11/2025 12:00 PM EDT Inhaled Oxygen Concentration - - Weight 81.6 kg (180 lb) 04/01/2025 4:06 PM EDT Height 162.6 cm (5' 4 ) 03/11/2025 10:05 AM EDT Body Mass Index 30.9 03/11/2025 10:05 AM EDT Plan of Treatment Upcoming Encounters Date Type Department Care Team (Late st Contact Info) Description 04/26/2025 2:45 PM EDT Appointment [address] [place] [address] Epic sched w/ Pt 10/01/2025 10:00 AM EDT Office Visit [facility] Gastroenterology [address] [place] [phone] [place] [address] [place] [address] [address] [place] [address] RTC 6 month 11/24/2025 9:00 AM EDT Office Visit [facility] Obstetrics & Gynecology [address] [place] [phone] Samantha Weaver APRN - CINDY [address] [address] annual Health Maintenance Due Date Last Done Comments Lipids 2002 FIT/FOBT: Average risk 10/29/2007 Fecal-DNA (Cologuard): Average risk 10/29/2007 Sigmoidoscopy/CT colonography 10/29/2007 Pneumococcal 50+ years Vaccine (1 of 1 - PCV) 2012 Shingles vaccine (1 of 2) 2012 08/06/2024 Diabetes screen 11/16/2018 11/17/2015 Respiratory Syncytial Virus (RSV) or age 60 yrs+ (1 - Risk 60-74 years 1-dose series) 2022 DTaP/Tdap/Td vaccine (2 - Td or Tdap) 01/22/2024 01/21/2014 Colonoscopy 09/29/2024 09/29/2021, 01/05, 01/20/2018, Additional history exists Colorectal Cancer Screen 09/29/2024 Flu vaccine (#1) 02/05/2025 06/25/2024 COVID-19 Vaccine ( season) 2025 Depression Screen 11/24/2025 11/24/2024, 11/24/2024 Breast cancer screen 04/24/2026 04/24/2024, 04/12/2023, 12/26/2021, Additional history exists Pap smear 11/25/2027 11/24/2024, 11/05, 11/23/2021, Additional history exists Cervical cancer screen 11/24/2029 HPV (without or with Pap) 11/24/20292024, 11/21/2022, 07/28/2018, Additional history exists HIV screen Completed 11/16/1992 Hepatitis C screen Addressed 11/17/2015 (Declined) Overridden [...] Procedure Name Priority Date/Time Associated Diagnosis Comments SURGICAL PATHOLOGY REPORT Routine 03/11/2025 11:25 AM EDT OK EGD TRANSORAL BIOPSY SINGLE/MULTIPLE 03/11/2025 11:16 AM EDT EE (eosinophilic esophagitis) Diverticulosis of colon Weight loss HUMAN PAPILLOMAVIRUS (HPV) DNA PROBE THIN PREP HIGH RISK Routine 11/24/2024 12:00 AM EDT TRANSFORMER INSPECTOR CYTOLOGY Routine 11/24/2024 12:00 AM EDT JORGE [...] Recently Relevant to Health Maintenance Results * SURGICAL PATHOLOGY REPORT (03/11/2025 11:25 AM EDT) Pathologist [facility] Surgical Pathology Report Path Number: [id number] -- Diagnosis -- A. DUODENUM, BIOPSY: - FINDINGS CONSISTENT WITH ACUTE AND CHRONIC PEPTIC DUODENITIS WITH ASSOCIATED FABIANA GLAND HYPERPLASIA AND GASTRIC FOVEOLAR METAPLASIA B. STOMACH, ANTRUM, BIOPSY: - MILD CHRONIC INACTIVE GASTRITIS - HELICOBACTER PYLORI MICROORGANISMS ARE NOT IDENTIFIED C. ESOPHAGUS, BIOPSY: - SQUAMOUS MUCOSA WITH EOSINOPHILIA (UP TO 50 PER HIGH-POWER FIELD) - COLUMNAR MUCOSA WITH MILD CHRONIC INFLAMMATION - NEGATIVE FOR INTESTINAL METAPLASIA AND DYSPLASIA - SEE COMMENT -- Diagnosis Comment -- In part C, squamous mucosa with eosinophilia is present. Eosinophils focally number up to 50 per high-power field. Esophageal eosinophilia can be seen with eosinophilic esophagitis and with reflux. Please correlate with appropriate clinical and endoscopic findings. Jose Villalba D.O. Electronically Signed Out [facility]03/15/2025 Clinical Information Pre-Op Diagnosis: EE (EOSINOPHILIC ESOPHAGITIS); DIVERTICULOSIS OF COLON; WEIGHT LOSS Operative Findings: BIOPSY DUODENAL BLUB; GASTRIC ANTRUM FOR H. PYLORI; BIOPSY SCHATZKI'S RING Operation Performed: ESOPHAGOGASTRODUOD ENOSCOPY BIOPSY se Source of Specimen A: DUODENAL BX BULB B: GASTRIC ANTRUM BIOPSY FOR H PYLORI C: BIOPSY SCHATZKI RING Gross Description A. CHESTER UGALDE, BIOPSY DUODENAL BULB Received in formalin are two agrawal-white tissue fragments, < 0.1 cm in diameter and 0.5 x 0.4 x 0.2 cm. The smallest fragment may not survive processing. Entirely 1cs. BTree UGALDE, GASTRIC ANTRUM Received in formalin are two agrawal-white tissue fragments from 0.5 to 0.9 cm and are 1.4 x 0.2 x 0.2 cm in aggregate. Entirely 1cs. C. CHESTER UGALDE, BIOPSY SCHATZKI'S RING Received in formalin are multiple agrawal-white tissue fragments from 0.1 to 0.5 cm and are 1.3 x 1.2 x 0.2 cm in aggregate. Entirely 1cs. jj tm Ancelmo Anaya M.D./se:03/12/2025 Microscopic Description A-C. Microscopic examination performed. In part B, sections of gastric type mucosa are noted. The mucosa is lined by foveolar epithelium. Within the lamina propria there is a mild infiltrate of lymphocytes and plasma cells. An immunostain for Helicobacter pylori microorganisms is negative with appropriate reactive controls. Processing Lab: [address] [address] [place] [address] SURGICAL PATHOLOGY CONSULTATION Patient Name: CHESTER UGALDE [facility] Rec: [id number] [facility] ANATOMIC PATHOLOGY [address] [place], [place] [address] [facility] [employer] 03/11/2025 11:2 5 AM EDT 03/11/2025 2:32 PM EDT us Constantine Sanchez MD PATHOLOGY/CYTOLOGY ORDERABLES F inal Result [facility] [address] [place] [address], [facility] [phone] MELE SALAZAR [facility] * Human papillomavirus (HPV) DNA probe thin prep high risk (11/24/2024 12:00 AM EDT) Specimen Description CERVICAL MATERIAL 11/24/2024 12:00 AM EDT [facility] HPV Sample .THIN PREP 11/24/2024 12:00 AM EDT [facility] HPV, Genotype 16 Not Detected Not Detected 11/24/2024 12:00 AM EDT [facility] HPV, Genotype 18 Not Detected Not Detected 11/24/2024 12:00 AM EDT [facility] HPV, High Risk Other Not Detected Not Detected 11/24/2024 12:00 AM EDT [facility] HPV, Interpretation 11/24/2024 12:00 AM EDT [facility] Comment: This test amplifies and detects DNA [...] other forensic purposes. CERVICAL MATERIAL 11/24/2024 Samantha Weaver LAUNDRY AIDE - SILVICULTURE PROFESSOR HEMATOLOGY ORDERABLES Fi nal Result [facility] [address] [place] [address], [facility] [phone] * TRANSFORMER INSPECTOR Cytology (11/24/2024 12:00 AM EDT) Cytology Report Path Number: [id number] DIAGNOSIS Imaged ThinPrep Pap - Cervical (1 [...] or for other forensic purposes. Performed at [facility], [address] [place] [address] . Source of Specimen: A: Imaged ThinPrep Pap - Cervical (1 monolayer slide) HPV Reflex?........... ...........HPV Regardless Clinical History Co-Test: ThinPrep Pap with high risk HPV testing Z01.419 Routine potato chip maker exam without abnormal findings Z11.51 Encounter for screening for HPV Processing Lab: [address] [address] Interpretation performed at [address] [address] This Pap Test has been evaluated with [...] result. GYNECOLOGIC CYTOLOGY REPORT Patient Name: CHESTER UGALDE [facility] Rec: [id number] [facility] ANATOMIC PATHOLOGY [address] [place], [place] [address] [facility] Hall CERVICAL MATERIAL 11/24/2024 025 7:39 AM EDT Samantha Weaver LAUNDRY AIDE - SILVICULTURE PROFESSOR PATHOLOGY/CYTOLOGY ORDER OLMAN Final Result [facility] [address] [place] [address] [facility] * JORGE FABIAN DIGITAL SCREEN BILATERAL (04/24/2024 [...] to the patient regarding the results. The [employer] recommends annual mammograms for women 40 years and older. Performing Facility: [facility] [address] [place] [address]. [address] [place] [phone] Narrative 04/27/2024 8:15 AM EDT EXAMINATION: SCREENING [...] significant interval changes are noted. Samantha Weaver LAUNDRY AIDE - SILVICULTURE PROFESSOR IMG MAMMOGRAPHY ORDERABL ES Final Result * COLONOSCOPY W/ OR W/O BIOPSY (01/20/2018) Constantine Sanchez MD GENERAL SURGICAL ORDERABLES Fin al Result * Hemoglobin A1C (11/17/2015 12:36 PM EDT) Hemoglobin A1C 4.6 4.0 - 6.0 % 11/17/2015 8:45 PM EDT [facility] Estimated Avg Glucose 85 mg/dL 11/17/2015 8:45 PM EDT [facility] Comment: The ADA and AACC recommend providing the estimated average glucose result to permit better patient understanding of their HBA1c result. Performed at [address] [address] ([phone] BLOOD SPECIMEN / Unknown 11/17/2015 12:36 PM EDT 11/17/2015 12:38 PM EDT Ino Brothers DO CHEMISTRY ORDERABLES Fin al Result [facility] [address] [place], [place] [address] [phone] [facility] from Last 3 Months or Most Recently Relevant to Health Maintenance Insurance [place] [employer]BS Advance Directives * Full Code (Latest Code Status on File) Date Activated Date Inactivated Comments 02/01/2022 6:09 AM 02/02/2022 12:51 PM * Full Code Date Activated Date Inactivated Comments 03/14/2016 8:36 AM 03/15/2016 12:04 AM Care Teams Wine Fermenter Relationship Specialty Start Date End Date Candy Gilbert PA-C PCP - General 11/25/15
--- OUTSIDE RECORDS SUMMARY | 2025-04-12 08:54 | XMS_ITS | Clinical Summary ---
Author Organization [facility] Address [address] [facility] [place] [address] Care Team Providers Care Content Writer Name Role Phone Candy Gilbert Primary Care Provider [phone] Allergies Active Allergy Reactions Criticality Noted Date Comments Celecoxib 01/01/2023 Other Reaction(s): GI Bleeding Gabapentin 01/01/2023 Other Reaction(s): Stomach Upset Meloxicam Other 01/01/2023 Other Reaction(s): Stomach Ulcer Penicillins Swelling 12/25/2022 Shellfish Protein-Containing Drug Products Diarrhea,GI intolerance,Other 01/01/2023 Medications cholecalciferol (D3-5) 5,000 Units tablet Take 1 tablet by mouth in the morning. Active ELDERBERRY PO Take 1 tablet by mouth in the morning. Active Aloe Vera 25 MG capsule Take 1 tablet by mouth 1 (one) time each day Active metoprolol tartrate (Lopressor) 25 MG tablet Take 25 mg by mouth in the morning and 25 mg before bedtime. 07/10/2024 Active acetaminophen (Tylenol 8 Hour) 650 MG ER tablet Take 2 tablets by mouth every 8 (eight) hours if needed for mild pain Do not crush, chew, or split. Active baclofen (Lioresal) 10 MG tabletIndication s:Spondylosis of lumbosacral 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thy Take 1 tablet (10 mg) by mouth as needed at bedtime for muscle spasms 90 tablet 3 07/30/2024 Active Biotin 1000 MCG chewable tablet Chew Acti ve levothyroxine (Synthroid, Levoxyl) 50 MCG tablet Take 50 mcg by mouth in the morning. 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 Vision abnormalities 07/10/2023 Hiatal hernia 01/01/2023 History of nephrolithiasis 01/01/2023 Inflammatory polyarthropathy 01/01/2023 Irritable bowel syndrome with diarrhea 3 Left ovarian cyst 01/01/2023 Lipoprotein deficiency disorder 01/01/2023 Localized osteoarthritis of right knee 3 Median neuropathy of both upper extremities 12/07 Occipital neuralgia 01/01/2023 Fibromyalgia 01/01/2023 Other chronic pain 01/01/2023 Other specified disorders in volving the immune mechanism, not elsewhere classified 01/01/2023 Palpitation 01/01/2023 Primary osteoarthritis involving multiple joints 01/01/2023 Schatzki's ring of distal esophagus 01/01/2023 Sciatica 01/01/2023 Seasonal allergic rhinitis due to pollen 023 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, mixed type 01/01/2023 Cervical radiculopathy 01/01/2023 Spondylosis of thoracic cheri on without myelopathy or radiculopathy 01/01/2023 Vitamin B-complex deficiency 01/01/2023 Vitamin D deficiency 01/01/2023 ESS (euthyroid sick syndrome) 12/25/2022 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 Acquired hypothyroidism 12/25/2022 Chronic fatigue 12/25/2022 Non morbid obesity due to excess calories 2022 [place] grade 3 cystocele 02/01/2022 Cystocele, midline 02/01/2022 Overview (07/10/2023): PVR=85 ml Overflow incontinence 02/01/2022 Eosinophilic esophagitis 12/21/2021 History of gastric ulcer 12/21/2021 Tubular adenoma 12/21/2021 Cervical spondylosis without myelopathy 11/21/19 Diverticulosis of colon 11/20/2021 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 11/20/2021 Hypokalemia 04/05/2021 Colon polyps 01/20/2018 Overview (07/10/2023): flat polyp- tubular adenoma Abdominal bloating 12/12/2017 Gastric mass 11/30/2017 H/O tubal ligation 11/17/2015 S/P endometrial ablation 11/17/2015 Overview (07/10/2023): Cryo technique HERS OPTION Enlarged uterus 06/05/2012 Fibroids, submucosal 06/05/2012 Overview (07/10/2023): Anterior 2 cm Resolved Problems Problem Noted Date Diagnosed Date Resolved Date Diverticulosis 01/01/2023 08/15/2023 History of gastrointestinal disease 01/01/2023 08/15/2023 Pain and swelling of knee 01/01/2023 Primary osteoarthritis 11/20/202108/15 COVID 07/28/2021 08/15/2023 Weight loss 07/28/2021 08/15/2023 Acute cystitis without hematuria 04/07/2021 08/15/2023 Gastroesophageal reflux dise ase without esophagitis 04/05/2021 08/15/2023 Pneumonia due to COVID-19 virus 04/05/2021 08/15/2023 Chest pain 05/21/2019 08/15/2023 Abdominal pain 12/12/2017 08/15/2023 Encounters Date Type Department Care Team Description 03/11/2025 Clinisync Result Encounter [facility] External Department Unsolicited Provider, Generic External Data 03/11/2025 Abstract [facility] [address] [facility] [address] [place] [address] Candy Gilbert, PA 03/11/2025 Abstract [facility] [place] [facility] [address] [facility] [address] [place] [address] Candy Gilbert, PA 02/12/2025 Abstract [facility] [place] [facility] [address] [facility] [address] [place] [address] Candy Gilbert, PA 02/12/2025 Abstract [facility] [place] [facility] [address] [facility] [address] [place] [address] Candy Gilbert, PA 02/12/2025 Orders Only [facility] [facility] [address] [facility] [address] [place] [address] Candy Gilbert, PA Abnormal finding on imaging of liver; Hepatic lesion 02/11/2025 Abstract [facility] [place] [facility] [address] [facility] [address] [place] [address] Candy Gilbert, PA 02/11/2025 Abstract [facility] [place] [facility] [address] [facility] [address] [place] [address] Candy Gilbert, PA 01/25/2025 Abstract [facility] [facility] [address] [place] [address] [place] [address] Candy Gilbert, PA 01/25/2025 Clinisync Result Encounter NOMS External Department Unsolicited Candy Gilbert, PA 01/15/2025 Abstract [facility] [place] [facility] [address] [facility] [address] [place] [address] Candy Gilbert PA from Last 3 Months Immunizations Immunization Administration Dates Next Due Tdap 01/21/2014 Family History Medical History Relation Name Comments Asthma Daughter Cancer Father Diabetes Father Heart disease Father Mental illness Father Stroke Father Cancer Mother Heart disease Mother Hypertension Mother Stroke Mother Relation Name Status Comments Brother x3 Daughter x2 Father Mother Alive Sister x2 Son x1 Social History Tobacco Use Types Packs/Day Years [...] and Family Not on file 12/19/2022 Attends Restorationism Services Not on file 12/19 Do you belong to any clubs o r organizations such as rastafarian groups, unions, fraternal or athletic groups, or [...] Sign Reading Time Taken Comments Blood Pressure 118/78 12/31/2024 2:29 PM EDT Pulse 65 12/31/2024 2:29 PM EDT Temperature 36.7 C (98.1 F) 03/31/2024 10:47 AM EDT Respiratory Rate 16 10/14/2024 9:38 AM EDT Oxygen Saturation 97% 12/31/2024 2:29 PM EDT Inhaled Oxygen Concentration - - Weight 81.6 kg (180 lb) 12/31/2024 2:29 PM EDT Height 162.6 cm (5' 4 ) 12/31/2024 2:29 PM EDT Body Mass Index 30.9 12/31/2024 2:29 PM EDT Plan of Treatment Upcoming Encounters Date Type Department Care Team (Late st Contact Info) Description 06/21/2025 10:30 AM EST Office Visit [facility] [place] [facility] [address] [facility] 110 [place] [address] Candy Gilbert PA [address] [facility] 110 [place] [address] Health Maintenance Due Date Last Done Comments CT Colonography 1962 FIT-DNA 1962 FIT 1962 FOBT 1962 Sigmoidoscopy 1962 Influenza Vaccine (#1) 2025 Mammogram 04/24/2025 04/24/2024, 04/07, 04/12/2023, Additional history exists Pap Smear 11/25/2027 11/24/2024, 11/06, 11/21/2022, Additional history exists Cervical Cancer Screening 11/24/2029 HPV/Cotest 11/24/2029 11/24/2024, 11/06, 11/21/2022, Additional history exists Colonoscopy 09/30/2031 09/29/2021, 01/20/2018, 01/05 Colorectal Cancer Screening 09/30/2031 Procedures Procedure Name Priority Date/Time Associated Diagnosis Comments [facility] HISTOLOGY [facility] Routine 03/11/2025 11:25 AM EDT [facility] CREATININE Routine 01/25/2025 8:10 AM EDT MR ABDOMEN W AND WO CONTRAST Routine 01/25/2025 Abnormal finding on imaging of liver Hepatic lesion MAMMOGRAM* Routine 04/12/2023 8:21 AM EDT COLONOSCOPY Routine 01/20/2018 12:00 PM EDT from Last 3 Months or Most Recently Relevant to Health Maintenance Results * [facility] (03/11/2025 11:25 AM EDT) [facility] (NOTE) Path Number: [id number] -- Diagnosis -- A. DUODENUM, BIOPSY: - [...] findings. Jose Villalba D.O. Electronically Signed Out [facility]03/15/2025 Clinical Information Pre-Op Diagnosis: EE (EOSINOPHILIC ESOPHAGITIS); DIVERTICULOSIS OF COLON; WEIGHT LOSS Operative Findings: BIOPSY DUODENAL BLUB; GASTRIC ANTRUM FOR H. PYLORI; BIOPSY SCHATZKI'S RING Operation Performed: ESOPHAGOGASTRODUOD ENOSCOPY BIOPSY se Source of Specimen A: DUODENAL BX BULB B: GASTRIC ANTRUM BIOPSY FOR H PYLORI C: BIOPSY SCHATZKI RING Gross Description Telly UGALDE, BIOPSY DUODENAL BULB Received in formalin are two agrawal-white tissue fragments, < 0.1 cm in diameter and 0.5 x 0.4 x 0.2 cm. The smallest fragment may not survive processing. Entirely 1cs. Lisset. CHESTER UGALDE, GASTRIC ANTRUM Received in formalin are [...] negative with appropriate reactive controls. Processing Lab: [address] [address] [place] [address] SURGICAL PATHOLOGY CONSULTATION Patient Name: CHESTER UGALDE [facility] Rec: [id number] [facility] ANATOMIC PATHOLOGY [address] [place] [address]. [place], [place] [address] MHPT 03/11/2025 11:2 5 AM EDT 03/11/2025 2:32 PM EDT Narrative [facility] - 03/16/2025 11:08 AM EDT Original Ordering Provider: JUDI MENDIETA us Generic External Data Provider [facility] F inal Result [facility] * (ABNORMAL) TBH CREATININE (01/25/2025 8:10 AM EDT) CREATININE 0.51(L) 0.55 - 1.02 mg/dL TBH TBH EGFR-AF INDIAN >60 >=60 mL/min/1.7 3m 2 TBH TBH EGFR-NON AF INDIAN >60 >=60 mL/min/1.7 3m 2 [facility] 01/25/2025 8:10 AM EDT 01/25/2025 8:11 AM EDT Narrative [facility] - 01/25/2025 8:26 AM EDT Candy FERNANDEZ Final Result [facility] * (ABNORMAL) MR abdomen w and wo contrast (01/25/2025) 01/25/2025 Candy Melgar PA - 02/12/2025 7:32 AM EDT See scanned document for report Candy PRUITT IMG MRI PROCEDURES Final Resul t * MAMMOGRAM* (04/12/2023 8:21 AM EDT) Anatomical Region Laterality Modality Radiographic Lcuy ging Unknown Practice A IMG XR PROCEDURES Final Resul t * Colonoscopy (01/20/2018 12:00 PM EDT) Anatomical Region Laterality Modality Endoscopy 01/20/2018 12:0 0 PM EDT Narrative 01/20/2018 12:00 PM EDT PERFORMED AT [facility] LOCATION:[id number] Procedure Note CONVERSION, GENERIC - 11/21/2022 PERFORMED AT [facility] LOCATION:[id number] Denice Meyer MD ENDOSCOPY PROCEDURE ORDERABLES F inal Result from Last 3 Months or Most Recently Relevant to Health Maintenance Insurance BS Care Teams Content Writer Relationship Specialty Start Date End Date Candy Gilbert PA [address] [facility] 110 [place] [address] PCP - General Family Medicine 08/15/23
--- OUTSIDE RECORDS SUMMARY | 2025-04-12 08:54 | XMS_ITS | Encounter Summary ---
Author Organization [facility] Address [address] [facility], [address] [place] [address] Care Team Providers Care Identifier Horse Name Role Phone Candy Gilbert PA-C Primary Care Provider Reason for Visit * Reason Comments Other Encounter Details Date Type Department Care Team (Late st Contact Info) Description 06/29/2014 Refill [facility] Gastroenterology [address] [place] [address] [address] [place] [phone] [place] [address] [place] [address] [address] [place] [address] Other Social History Tobacco Use Types Packs/Day [...] Info) Description 04/26/2025 2:45 PM EDT Appointment [facility] [address] [facility]. [place] [place] [address] Epic sched w/ Pt 10/01/2025 10:00 AM EDT Office Visit [facility] [place] [facility] [address] [facility] [address] [place] [address] Constantine Sanchez MD [address] [facility] [address] [place] [address] RTC 6 month 11/24/2025 9:00 AM EDT Office Visit [facility] Obstetrics & Gynecology [address] [facility] [address] [place] [address] Samantha Weaver APRN - FIBER OPTICS TECHNICIAN [address] [facility] [address] [place], [place] [phone] annual documented as of this encounter Visit Diagnoses Not on filedocumented in this encounter Additional Health Concerns Infection Onset Date Last Indicated Resolved Time COVID-19 (Rule Out) 09/25/2021 09/25/2021 09/27/19 12:50 PM EDT documented as of this encounter Care Teams Identifier Horse Relationship Specialty Start Date End Date Candy Gilbert PA-C PCP - General 11/25/15 documented as of this encounter
--- OUTSIDE RECORDS SUMMARY | 2025-04-12 08:54 | XMS_ITS | Encounter Summary ---
Author Organization [facility] Address [address] [place] [address] Care Team Providers Care Front Counter Attendant Name Role Phone Candy Gilbert Primary Care Provider [phone] Encounter Details Date Type Department Care Team (Late st Contact Info) Description 02/11/2025 Abstract [facility] [address] [facility] 110 [place] [address] Candy Gilbert PA [address] [facility] 110 [place], [place] [phone] Social History Tobacco Use Types Packs/Day Years [...] and Family Not on file 12/19/2022 Attends Lutheran Services Not on file 12/19 Do you belong to any clubs o r organizations such as amish groups, unions, fraPlayData or athletic groups, or school groups? Patient [...] Visit [facility] [place] [address] [facility] [address] [place] [address] Candy Gilbert PA [address] [place] [address] [place] [address] documented as of this encounter Visit Diagnoses Not on filedocumented in this encounter Care Teams Front Counter Attendant Relationship Specialty Start Date End Date Candy Gilbert PA [address] [place] [address] [place] [address] PCP - General Family Medicine 08/15/23 documented as of this encounter
--- OUTSIDE RECORDS SUMMARY | 2025-04-12 08:54 | XMS_ITS | Encounter Summary ---
Author Organization [facility] Address [address] [facility], [address] [place] [address] Care Team Providers Care Computer Artist Name Role Phone Candy Gilbert PA-C Primary Care Provider Encounter Details Date Type Department Care Team (Late Contact Info) Description 03/15/2016 FollowUp Telephone Encounter [facility] General Surgery [address] [place] [address] Su Tolbert RN Social History Tobacco Use [...] Encounters Date Type Department Care Team (Late Contact Info) Description 04/26/2025 2:45 PM EDT Appointment [facility] Mammography [address] [facility] [place] [address] Epic sched w/ Pt 10/01/2025 10:00 AM EDT Office Visit [facility] Gastroenterology [address] [facility] [address] [place] [address] Constantine Sanchez MD [address] [facility] [place] [address] RTC 6 month 11/24/2025 9:00 AM EDT Office Visit [facility]necology [address] [facility] [address] [place] [phone] Samantha Weaver APRN - PARA PROFESSIONAL [address] [facility] [address] [place], [place] [phone] annual documented as of this encounter Visit Diagnoses Not on filedocumented in this encounter Additional Health Concerns Infection Onset Date Last Indicated Resolved Time COVID-19 (Rule Out) 09/25/2021 09/25/2021 09/27/19 12:50 PM EDT documented as of this encounter Care Teams Computer Artist Relationship Specialty Start Date End Date Candy Gilbert PA-C PCP - General 11/25/15 documented as of this encounter
--- OUTSIDE RECORDS SUMMARY | 2025-04-12 08:54 | XMS_ITS | Encounter Summary ---
Author Organization [facility] Address [address] [place] [address] Care Team Providers Care President Finance Company Name Role Phone Candy Gilbert Primary Care Provider [phone] Encounter Details Date Type Department Care Team (Late st Contact Info) Description 01/25/2025 Abstract [facility] [address] [facility] 110 [place] [address] Candy Gilbert PA [address] [facility] 110 [place], [place] [address] Social History Tobacco Use Types Packs/Day Years [...] r organizations such as presybeterian groups, unions, fraProgressive Book Club or athletic groups, or school groups? Patient [...] [address] [facility] [address] [place] [address] Candy Gilbert PA [address] [place] [address] [place] [address] documented as of this encounter Visit Diagnoses Not on filedocumented in this encounter Care Teams President Finance Company Relationship Specialty Start Date End Date Candy Gilbert PA [address] [place] [address] [place] [address] PCP - General Family Medicine 08/15/23 documented as of this encounter
--- OUTSIDE RECORDS SUMMARY | 2025-04-12 08:54 | XMS_ITS | Encounter Summary ---
Author Organization [facility] Address [address] [place] [place] [address] Care Team Providers Care Cushion Cover Inspector Name Role Phone Candy Gilbert Primary Care Provider [phone] Encounter Details Date Type Department Care Team (Late st Contact Info) Description 03/11/2025 Abstract [facility] [facility] [address] [facility] 110 [place] [address] Candy Gilbert PA [address] [facility] 110 [place], [place] [phone] Social History Tobacco Use Types Packs/Day Years [...] any clubs o r organizations such as restorationist groups, unions, fraOrbis Biosciences or athletic groups, or school groups? [...] Visit [facility] [place] [address] [facility] [address] [place] [address] Candy Gilbert PA [address] [place] [address] [place] [address] documented as of this encounter Visit Diagnoses Not on filedocumented in this encounter Care Teams Cushion Cover Inspector Relationship Specialty Start Date End Date Candy Gilbert PA [address] [place] [address] [place] [address] PCP - General Family Medicine 08/15/23 documented as of this encounter
--- OUTSIDE RECORDS SUMMARY | 2025-04-12 08:54 | XMS_ITS | Encounter Summary ---
Author Organization [facility] Address [address] [place] [place] [address] Care Team Providers Care Ultrasound Supervisor Name Role Phone Candy Gilbert Primary Care Provider [phone] Encounter Details Date Type Department Care Team (Late st Contact Info) Description 01/05/2025 Abstract [facility] [facility] [address] [facility] 110 [place] [address] Candy Gilbert PA [address] [facility] 110 [place], [place] [address] Social History Tobacco Use Types Packs/Day Years [...] and Family Not on file 12/19/2022 Attends Buddhist Services Not on file 12/19 Do you belong to any clubs o r organizations such as latter-day groups, unions, fraStepOne or athletic groups, or school groups? Patient [...] Visit [facility] [place] [address] [facility] [address] [place] [address] Candy Gilbert PA [address] [place] [address] [place] [address] documented as of this encounter Visit Diagnoses Not on filedocumented in this encounter Care Teams Ultrasound Supervisor Relationship Specialty Start Date End Date Candy Gilbert PA [address] [place] [address] [place] [address] PCP - General Family Medicine 08/15/23 documented as of this encounter
--- OUTSIDE RECORDS SUMMARY | 2025-04-12 08:54 | XMS_ITS | Encounter Summary ---
Author Organization [facility] Address [address] [facility], [address] [place] [address] Care Team Providers Care Surgical Supplies Sterilizer Name Role Phone Candy Gilbert PA-C Primary Care Provider Encounter Details Date Type Department Care Team (Late st Contact Info) Description 02/09/2025 Prep for Procedure [facility] Gastroenterology [address] [place] [address] [place] [phone] Constantine Sanchez MD [address] [place] [address] Social History Tobacco Use Types Packs/Day Years [...] Info) Description 04/26/2025 2:45 PM EDT Appointment [facility] [address] [facility]. [address] [place] [address] Epic sched w/ Pt 10/01/2025 10:00 AM EDT Office Visit [facility] Gastroenterology [address] [place] [address] [address] [place] [phone] Constantine Sanchez MD [address] [facility] 320 [place] [address] RTC 6 month 11/24/2025 9:00 AM EDT Office Visit [facility] [place] Ob[facility] & Gynecology [facility] [address] [place] [phone] Samantha Weaver APRN - REALTIME REPORTER [address] [place] [phone] annual documented as of this encounter Visit Diagnoses Not on filedocumented in this encounter Care Teams Surgical Supplies Sterilizer Relationship Specialty Start Date End Date Candy Gilbert PA-C PCP - General 11/25/15 documented as of this encounter
--- OUTSIDE RECORDS SUMMARY | 2025-04-12 08:54 | XMS_ITS | Encounter Summary ---
Author Organization [facility] Address [address] [facility] [place] [address] Care Team Providers Care Production Trainer Name Role Phone Candy Gilbert PA-C Primary Care Provider Reason for Visit * Reason Comments Medication Refill Encounter Details Date Type Department Care Team (Late st Contact Info) Description 02/28/2020 Refill [facility] Gastroenterology [address] [place] [phone] Constantine Sanchez MD [address] [place] [address] Medication Refill Social History Tobacco Use Types [...] Info) Description 04/26/2025 2:45 PM EDT Appointment [address] [place] [place] [address] Epic sched w/ Pt 10/01/2025 10:00 AM EDT Office Visit [facility] [place] [facility] [address] [facility] [address] [place] [phone] Constantine Sanchez MD [address] [facility] [address] [place] [address] RTC 6 month 11/24/2025 9:00 AM EDT Office Visit [facility] [place] [facility] [address] [facility] [address] [place] [address] Samantha Weaver APRN - ARM REST BUILDER [address] [facility] [address] [place] [address] annual documented as of this encounter Visit Diagnoses Not on filedocumented in this encounter Additional Health Concerns Infection Onset Date Last Indicated Resolved Time COVID-19 (Rule Out) 09/25/2021 09/25/2021 09/27/19 12:50 PM EDT documented as of this encounter Care Teams Production Trainer Relationship Specialty Start Date End Date Candy Gilbert PA-C PCP - General 11/25/15 documented as of this encounter
--- OUTSIDE RECORDS SUMMARY | 2025-04-12 08:54 | XMS_ITS | Clinical Summary ---
Author Organization [facility] Address [address] [place] [address] Care Team Providers Care Bricklayer Tender Name Role Phone Candy Gilbert MD Primary Care Provider Allergies Active Allergy Reactions Criticality Noted Date Comments Celecoxib GI bleeding,Other High 04/14/2012 Other Reaction(s): GI Bleeding Intestinal bleeding Gabapentin GI intolerance,Nause a Only 08/02/2021 Other Reaction(s): Stomach Upset Penicillins Angioedema,Swelling High 04/14/2012 Shellfish Derived Diarrhea 05/20/2024 Medications levothyroxine (Synthroid, Levoxyl) 150 mcg tablet Take 150 mcg by mouth before breakfast. 4 Active cholecalciferol (D3-5) 5,000 Units tablet Take 2 tablets by mouth in the morning. Active spironolactone (Aldactone) 25 mg tabletIndication s:Heart failure, unspecified HF chronicity, unspecified heart failure type (CMS/HCC) Take 1 tablet (25 mg) by mouth in the morning. 90 tablet 3 4 06/24/20 25 Active Additional Information Patient not taking.Reported on 08/04/2024 dapagliflozin propanediol (Farxiga) 10 mgIndications:He art failure, unspecified HF chronicity, unspecified heart failure type (CMS/HCC) Take 1 tablet (10 mg) by mouth in the morning. 90 tablet 3 4 06/29/20 25 Active Additional Information Patient not taking.Reported on 10/13/2024 dapagliflozin propanediol (Farxiga) 10 mgIndications:Ot her congestive heart failure (CMS/HCC) Take 1 tablet (10 mg) by mouth in the morning. 30 tablet 11 4 07/02/20 Active Additional Information Patient not taking.Reported on 08/04/2024 Farxiga 10 mgIndications:He art failure, unspecified HF chronicity, unspecified heart failure type (CMS/HCC) Take 1 tablet (10 mg) by mouth in the morning. 90 tablet 3 4 07/03/20 Active Additional Information Patient not taking.Reported on 10/13/2024 metoprolol tartrate (Lopressor) 25 mg tabletIndication s:Palpitations Take 1 tablet (25 mg) by mouth two times daily. 180 tablet 3 5 10/24/19 Active Active Problems Problem Noted Date Diagnosed Date Grade II diastolic dysfunction 06/01/2024 Overview (06/24/2024): See on ECHO Nonrheumatic mitral valve regurgitation 06/01/20 Nonrheumatic tricuspid valve regurgitation 06/01 Costochondritis 05/20/2024 Overview (05/20/2024): Since 2018 Bilateral radiating leg pain 05/20/2024 Arthritis 05/20/2024 Frequent PVCs 05/06/2024 PSVT (paroxysmal supraventricular tachycardia) 1 Bruises easily 07/10/2023 Family history of breast cancer 07/10/2023 Overview (05/20/2024): MGM after 82 y.o. Vision abnormalities 07/10/2023 History of renal calculi 01/01/2023 Left ovarian cyst 01/01/2023 Localized osteoarthritis of right knee Median neuropathy of both upper extremities 12/07 Sciatica 01/01/2023 Pain and swelling of knee 01/01/2023 Palpitations 01/01/2023 Primary osteoarthritis involving multiple joints 01/01/2023 Schatzki's ring of distal esophagus 01/01/2023 [place] grade 3 cystocele 02/01/2022 Overflow incontinence 02/01/2022 Eosinophilic esophagitis 12/21/2021 History of gastric ulcer 12/21/2021 Tubular adenoma 12/21/2021 Allergic rhinitis due to pollen 11/20/2021 Cervical radiculopathy 11/20/2021 Cervical spondylosis without myelopathy 11/21/19 Chronic fatigue syndrome 11/20/2021 Diverticulosis of colon 11/20/2021 Dyssomnia 11/20/2021 Hiatal hernia 11/20/2021 Irritable bowel syndrome with diarrhea Lipoprotein deficiency disorder 11/20/2021 Median neuropathy 11/20/2021 Occipital neuralgia 11/20/2021 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 Primary osteoarthritis 11/20/2021 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 11/20/2021 Spondylosis of thoracic 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thy 11/20/2021 Vitamin B-complex deficiency 11/20/2021 Vitamin D deficiency 11/20/2021 COVID 07/28/2021 Weight loss 07/28/2021 Acute cystitis without hematuria 04/07/2021 Acquired hypothyroidism 04/07/2021 Gastroesophageal reflux disease without esophagi tis 04/05/2021 Hypokalemia 04/05/2021 Class 3 severe obesity due t o excess calories with body mass index (BMI) of 40.0 to 44.9 in adult 04/05/2021 Pneumonia due to COVID-19 virus 04/05/2021 Colon polyps 01/20/2018 Overview (05/20/2024): flat polyp- tubular adenoma Abdominal bloating 12/12/2017 Abdominal pain 12/12/2017 Gastric mass 11/30/2017 H/O tubal ligation 11/17/2015 S/P endometrial ablation 11/17/2015 Overview (05/20/2024): Cryo technique [employer] Enlarged uterus 06/05/2012 Fibroids, submucosal 06/05/2012 Overview (05/20/2024): Anterior 2 cm Encounters Date Type Department Care Team Description 03/12/2025 Orders Only [facility] [place] [address] [place] [address] Greta Fairchild MA Abnormal EKG (Primary Dx); Heart failure with preserved ejection fraction, unspecified HF chronicity (CMS/HCC) from Last 3 Months Family History Medical History Relation Name Comments Coronary artery disease Brother Heart attack Father Atrial fibrillation Mother Supraventricular tachycardia Mother Coronary artery disease Sister Relation Name Status Comments Brother Father Mother Alive Sister Alive Social History Tobacco Use Types Packs/Day Years Used Date Smoking Tobacco: Never Smokeless Tobacco: Never Tobacco Cessation:Counseling Given: Not Answered Alcohol Use Standard Drinks/Week Comments Not Currently 0 (1 standard drink = 0.6 oz pur e alcohol) [place] Safety & Environment Answer Date Rec orded Fear of Current or Ex-Partner Not on file Emotionally Abused Not on file 08/29/2023 Physically Abused Not on file 08/29/2023 Sexually Abused Not on file 08/29/2023 Physically or Sexually Abused Not on file Comments Unknown Sex and Gender Information Value Date Recorded Sex Assigned at Not on file Legal Sex Female 12:40 AM EDT Gender Identity Not on file Sexual Orientation Not on file Last Filed Vital Signs Vital Sign Reading Time Taken Comments Blood Pressure 141/69 10/13/2024 9:27 AM EDT Pulse 52 10/13/2024 9:27 AM EDT Temperature - - Respiratory Rate - - Oxygen Saturation 98% 10/13/2024 9:27 AM EDT Inhaled Oxygen Concentration - - Weight 82.6 kg (182 lb) 10/13/2024 9:27 AM EDT Height 162.6 cm (5' 4 ) 10/13/2024 9:27 AM EDT Body Mass Index 31.24 10/13/2024 9:27 AM EDT Plan of Treatment Upcoming Encounters Date Type Department Care Team (Late st Contact Info) Description 05/06/2025 10:40 AM EDT Office Visit [facility] at [facility] [address] [place] [address] Daya Ceballos, PATTERN CHART WRITER [address] [place] [address] Health Maintenance Due Date Last Done Comments CT Colonography 1962 FIT-DNA 1962 FIT 1962 FOBT 1962 Sigmoidoscopy 1962 Depression Screening 1974 Pneumococcal Vaccine: Pediatrics (0 to 5 Years) and At-Risk Patients (6 to 64 Years) (1 of 2 - PCV) 1981 Zoster Vaccines (1 of 2) 2012 Adult Tetanus 01/22/2024 01/21/2014 COVID-19 Vaccine (1 - 2023-2 5 season) 2025 Influenza Vaccine (#1) 2025 Mammogram 04/24/2026 04/24/2024 Pap Smear 11/25/2027 11/24/2024, 11/21/2022 Colonoscopy 01/21/2028 01/20/2018 Colorectal Cancer Screening 01/21/2028 Cervical Cancer Screening 11/24/2029 HPV/Cotest 11/24/2029 11/24/2024, 11/21/2022 HIB Vaccines Aged Out No longer eligi ble based on patient's age to complete this topic HPV Vaccines Aged Out No longer eligi ble based on patient's age to complete this topic IPV Vaccines Aged Out No longer eligi ble based on patient's age to complete this topic Meningococcal B Vaccine Aged Out No l onger eligible based on patient's age to complete this topic Meningococcal Vaccine Aged Out No ailin bianka eligible based on patient's age to complete this topic Rotavirus Vaccines Aged Out No longer eligible based on patient's age to complete this topic Insurance [facility] OOS Care Teams Bricklayer Tender Relationship Specialty Start Date End Date Candy Gilbert MD [address] [address] PCP - General Physician Barrel Line Operator 05/13/24
--- OUTSIDE RECORDS SUMMARY | 2025-04-12 08:54 | XMS_ITS | Encounter Summary ---
Author Organization [facility] Address [address] [place] [address] Care Team Providers Care Soda Clerk Name Role Phone Candy Gilbert Primary Care Provider [phone] Encounter Details Date Type Department Care Team (Late st Contact Info) Description 03/11/2025 Abstract [facility] [place] [facility] [address] [facility] [address] [place] [address] Candy Gilbert PA [address] [facility] 110 [place], [place] [id number] Social History Tobacco Use Types Packs/Day Years [...] any clubs o r organizations such as religious groups, unions, fraMedlert or athletic groups, or school groups? Patient [...] Visit [facility] [place] [facility] [address] [facility] [address] [place] [address] Candy Gilbert PA [address] [facility] [address] [place] [address] documented as of this encounter Visit Diagnoses Not on filedocumented in this encounter Care Teams Soda Clerk Relationship Specialty Start Date End Date Candy Gilbert PA [address] [facility] [address] [place] [address] PCP - General Family Medicine 08/15/23 documented as of this encounter
--- OUTSIDE RECORDS SUMMARY | 2025-04-12 08:54 | XMS_ITS | Encounter Summary ---
Author Organization [facility] Address [address] [place] [place] [address] Care Team Providers Care Tank Truck Operator Name Role Phone Candy iGlbert Primary Care Provider [phone] Encounter Details Date Type Department Care Team (Late st Contact Info) Description 02/12/2025 Abstract [facility] [place] [facility] [address] [facility] [address] [place] [address] Candy Gilbert PA [address] [facility] [address] [place], [place] [id number] Social History Tobacco Use Types Packs/Day Years [...] r organizations such as sabianism groups, unions, fraSparkWords or athletic groups, or school groups? Patient [...] Visit [facility] [place] [facility] [address] [facility] [address] [place] [address] Candy Gilbert PA [address] [facility] [address] [place] [address] documented as of this encounter Visit Diagnoses Not on filedocumented in this encounter Care Teams Tank Truck Operator Relationship Specialty Start Date End Date Candy Gilbert PA [address] [facility] [address] [place] [address] PCP - General Family Medicine 08/15/23 documented as of this encounter
--- OUTSIDE RECORDS SUMMARY | 2025-04-12 08:54 | XMS_ITS | Clinical Summary ---
Author Organization [employer] Address [id number] [address] [place] [address] Care Team Providers Care Freelance Interpreter/Translator Name Role Phone Candy Gilbert Primary Care Provider [phone] Allergies Active Allergy Reactions Criticality Noted Date [...] 04/05/2021 Chest pain 05/21/2019 Gastric mass 11/30/2017 Family History Medical History Relation Name Comments [...] 04/05/2021 How often do you attend chur or sikhism services? More than 4 times per year 04/05/2021 Do you belong to any clubs o r organizations such as latter-day groups, unions, fraternal or athletic groups, or [...] Answer Date Recorded Total Score 0 04/05/2021 [facility] - Occupational Stress Questionnaire Answer [...] Recorded Do you need help finding a [employer] career center and/or a training program? No [...] Visit [facility] Department of [facility] [address] [facility] [address] [place] [address] Chana Gomes MD [address] [facility] [place] [address] Health Maintenance Due Date Last Done Comments [...] PM Medical Devices Not on file Insurance [employer] Advance Directives * Full Code (Latest Code Status on File) Date Activated Date Inactivated Comments 04/05/2021 5:53 PM 04/10/2021 7:35 PM * Full Code Date Activated Date Inactivated Comments 05/21/2019 6:44 PM 05/23/2019 7:59 PM * Full Code Date Activated Date Inactivated Comments 11/30/2017 11:33 AM 12/03/2017 8:04 PM Care Teams Freelance Interpreter/Translator Relationship Specialty Start Date End Date Candy Gilbert PA PCP - General 11/30/17
--- OUTSIDE RECORDS SUMMARY | 2025-04-12 08:54 | XMS_ITS | Encounter Summary ---
Author Organization [facility] Address [address] [place] [address] Care Team Providers Care Book Reviewer Name Role Phone Candy Gilbert Primary Care Provider Encounter Details Date Type Department Care Team (Late st Contact Info) Description 01/15/2025 Abstract [facility] [place] [facility] [address] [facility] [address] [place] [address] Candy Gilbert PA [address] [facility] [address] [place], [place] [phone] Social History Tobacco Use Types Packs/Day Years [...] any clubs o r organizations such as mu-ism groups, unions, fraBuzzmove or athletic groups, or school groups? Patient [...] Visit [facility] [place] [facility] [address] [facility] [address] [place] [address] Candy Gilbert PA [address] [facility] [address] [place] [address] documented as of this encounter Visit Diagnoses Not on filedocumented in this encounter Care Teams Book Reviewer Relationship Specialty Start Date End Date Candy Gilbert PA [address] [facility] [address] [place] [address] PCP - General Family Medicine 08/15/23 documented as of this encounter
--- OUTSIDE RECORDS SUMMARY | 2025-04-12 08:54 | XMS_ITS | Clinical Summary ---
Author Organization [facility] Address [address] [place] [address] Care Team Providers Care 1St Grade Teacher Name Role Phone Unavailable Primary Care Provider [...] (2 - Td or Tdap) 01/22/2024 01/21/2014 Diabetes Screening 01/22/2025 01/22/2022, 1 , 04/08/2021, Additional history exists Covid-19 Vaccine (1 - 2024-2 6 season) 2025 Influenza Vaccine (#1) 2025 Mammogram Screening 04/24/2025 04/24/2024, 04/24/2024, 04/12/2023, Additional history exists RSV Vaccine (1 - 1-dose 75+ series) 2037 Insurance BLUE CARD PPO OOS
--- OUTSIDE RECORDS SUMMARY | 2025-04-12 08:54 | XMS_ITS | Encounter Summary ---
Author Organization [facility] Address [address] [facility] [place] [address] Care Team Providers Care Ediscovery Project Manager Name Role Phone Candy Gilbert PA-C Primary Care Provider Reason for Visit * Reason Comments Medication Refill Encounter Details Date Type Department Care Team (Late st Contact Info) Description 03/05/2015 Refill [facility] Gastro[facility]ology [address] [place] [phone] Kirt Martinez MD [address] [place] [address] [address] [place], [place] [phone] Medication Refill Social History Tobacco Use Types [...] Info) Description 04/26/2025 2:45 PM EDT Appointment [facility] [address] [place] [address]. [address] [place] [address] Epic sched w/ Pt 10/01/2025 10:00 AM EDT Office Visit [facility] [address] [facility] [address] [place] [phone] Constantine Sanchez MD [address] [facility] [address] [place] [address] RTC 6 month 11/24/2025 9:00 AM EDT Office Visit [facility] [address] [facility] [address] [place] [phone] Samantha Weaver APRN - VP INFORMATICS [address] [facility] [address] [place], [place] [id number] annual documented as of this encounter Visit Diagnoses Not on filedocumented in this encounter Additional Health Concerns Infection Onset Date Last Indicated Resolved Time COVID-19 (Rule Out) 09/25/2021 09/25/2021 09/27/19 12:50 PM EDT documented as of this encounter Care Teams Ediscovery Project Manager Relationship Specialty Start Date End Date Candy Gilbert PA-C PCP - General 11/25/15 documented as of this encounter
--- OUTSIDE RECORDS SUMMARY | 2025-04-12 08:57 | XMS_ITS | CCD ---
Author Organization [facility] Care Team Providers Care Actimize Architect Name Role Phone CANDY GILBERT Unavailable Unavailable CANDY GILBERT Unavailable Unavailable CANDY GILBERT Unavailable Unavailable Candy Gilbert Primary Care Provider Candy Gilbert Primary Care Provider [phone] Candy Gilbert Primary Care Provider Cali Zhao MD Unavailable Jose Cruz Young MD Primary Care Provider [phone] Candy Patterson Primary Care Provider [phone] Candy Gilbert PA-C Primary Care Provider [phone] SAMANTHA WEAVER Referring Unavailable CANDY GILBERT Primary Care Unavailable Unavailable Primary Care Provider UnavailVIK Haddad Referring Unavailable Hemmer Candy PRUITT Primary Care Provider [phone] CHANA HURTADO Attending Unavailable CANDY GILBERT Referring Unavailable CANDY GILBERT Primary Care Unavailable CANDY GILBERT Attending Unavailable CANDY GILBERT Referring Unavailable ALEJANDRO CEBALLOS Attending Unavailable CANDY GILBERT Attending Unavailable CANDY GILBERT Attending Unavailable HEMCANDY BORREGO Attending Unavailable VIK MCARTHUR Attending Unavailable CATIE, EHAB Attending Unavailable CATIE EHAB Attending Unavailable VIK MCARTHUR Attending Unavailable CANDY GILBERT Primary Care Unavailable AHMAD, FARID U Admitting Unavailable AHMAD, FARID U Attending Unavailable CANDY GILBERT Primary Care Unavailable SAMANTHA WEAVER Referring Unavailable Allergies Allergy Classification Reported Allergen(s) Allergy Type Date of Onset Reaction(s) Facility NSAIDs (2 sources) celecoxib Drug Allergy 2 Other (See Comments) [facility] Penicillins (antibiotic) (1 source) Penicillins Drug Allergy 2 [facility] cele[facility]ib; Translations: [celecoxib] Drug Allergy 2 Other (See Comments), GI Bleeding [facility] (1 source) penicillin; Translations: [penicillin] Drug Allergy [facility] (20 sources) Shellfish-Deriv ed Products Propensity to adverse reactions to drug 2 Diarrhea, Nausea And Vomiting, GI intolerance, Other [facility] (15 sources) meloxicam; Translations: [MELOXICAM] Drug Allergy 8 Other (See Comments) [facility] (20 sources) Penicillins; Translations: [PENICILLINS] Propensity to adverse reactions to drug 2 Swelling, Angioedema [facility] Work Phone: (20 sources) gabapentin; Translations: [GABAPENTIN] Drug Allergy 2 Nausea Only, Nausea And Vomiting [employer] (20 sources) meloxicam Drug Allergy 3 Other [facility] (3 sources) Seafood Propensity to adverse reactions to drug 2 Diarrhea, Nausea And Vomiting [employer] (2 sources) Shellfish Propensity to adverse reactions to drug 4 Diarrhea [employer] (1 source) Shellfish; Translations: [SHELLFISH DERIVED] Propensity to adverse reactions to drug (disorder) 4 [facility] Repository Medications Current Medications Medication Drug Class(es) Dates Sig (Normalized) Sig (Original) Aloe Vera 25 MG capsule (20 sources) take 1 tablet by arsalan once daily Aloe Vera 25 MG capsule [...] 11/20/2024 Discontinued baclofen 10 mg oral tablet (20 sources) gamma-Aminobutyric Acid-ergic Agonist Start: 01-02-2023 End: 07-30-2024 baclofen (Lioresal) 10 MG tablet Indications: Spondylosis of lumbosacral 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thy Take 1 tablet (10 mg) by mouth as needed at bedtime for muscle spasms 90 tablet 3 07/30/2024 Active benzocaine 15 mg / menthol 2.6 mg oral lozenge (1 source) Standardized Chemical Allergen Start: 02-01-2022 Benzocaine-Menthol (CEPACOL SORE THROAT) 15-2.6 MG lozenge 1 lozenge biotin 1 mg chewable tablet (8 sources) Biotin 1000 MCG chewable tablet Chew Active bisacodyl 5 mg delayed release oral tablet (3 sources) Stimulant Laxative Start: 07-28-2021 End: 09-29-2021 bisacodyl (BISACODYL) 5 MG EC tablet Follow instructions provided given by the physician's office. 4 tablet 0 07/28/2021 09/29/2021 Discontinued (Therapy completed) calcium chloride 0.0014 meq/ml / potassium chloride 0.004 meq/ml / sodium chloride 0.103 meq/ml / sodium lactate 0.028 meq/ml injectable solution (4 sources) Start: 03-11-2025 IntraVENous, a t 125 mL/hr, CONTINUOUS, Starting on Adalgisa 03/11/25 at 1100, Pre-op (day of surgery) Start: 02-01-2022 IntraVENous, a t 125 mL/hr, CONTINUOUS, Starting on Adalgisa 02/01/22 at 1030, Post-op Start: 02-01-2022 End: 02-01-2022 lactated ringers infusion Start: 09-29-2021 lactated ringe rs infusion cholecalciferol 0.125 mg oral tablet (20 sources) Vitamin D take 1 tablet by mouth in the morning cholecalciferol (D3-5) 5,000 Units tablet Take 1 [...] DAILY 0 10/18/2017 09/29/2021 Discontinued (LIST CLEANUP) 1 ml diphenhydrAMINE hydrochloride 50 mg/ml cartridge [...] 60 capsule 0 02/01/2022 Active Elderberry preparation (20 sources) take 1 tablet by mouth in the morning ELDERBERRY PO Take 1 tablet by mouth in the morning. Active take 1 tablet by mouth in the mo rning ELDERBERRY PO Take 1 tablet by mouth in the morning. 0 Active estrogens, conjugated (detention) 0.625 mg/ml vaginal cream (6 sources) Estrogen [...] mg oral tablet (20 sources) l-Thyroxine Start: 12-15-2024 take 1 tablet by mouth in the morning levothyroxine (Synthroid, Levoxyl) 50 MCG tablet Take 50 mcg by mouth in the morning. 12/15/2024 Active Start: 11-20-2024 take 1 tablet by arsalan th in the morning levothyroxine (SYNTHROID) 50 MCG tablet Indications: Acquired hypothyroidism Take 1 tablet (50 mcg total) by mouth in the morning. 90 tablet 3 11/20/2024 Active Start: 04-02-2024 End: 12-31-2024 take 1 tablet by mouth in the morning levothyroxine (Synthroid, Levoxyl) 150 MCG tablet Indications: Wanda's disease Take 1 tablet (150 mcg) by mouth in the morning. Take on an empty stomach.. 90 tablet 3 07/30/2024 12/31/2024 Discontinued (Other) Start: 02-13-2024 take 1 tablet by arsalan [...] 10 ml lidocaine hydrochloride 10 mg/ml injection (2 sources) Antiarrhythmic, Amide Local Anesthetic Start: 03-12-2025 take 1 dose intravenously once daily 1 mL, IntraDERmal, ONCE PRN, 1 dose, Starting on Sat03/12/25 at 0000, Until Discontinued, IV start, Pre-op (day of surgery) Start: 09-29-2021 End: 09-29-2021 lidocaine PF 1 % injection 1 mL 1 ml meperidine hydrochloride 25 mg/ml cartridge (1 source) Opioid Agonist Start: 09-29-2021 meperidine (DEMEROL) injection 12.5 mg metoprolol tartrate 25 mg oral tablet (20 sources) beta-Adrenergic Ch[place] Start: 05-20-2024 End: 10-23-2025 take 1 tablet by mouth in the morning metoprolol tartrate (Lopressor) 25 MG tablet Take 25 mg by mouth in the morning and 25 mg before bedtime. 07/10/2024 Active Start: 02-02-2022 take 25 mg by [...] (PYRIDIUM) tablet 200 mg polyethylene glycol [id number] [id number] mg powder for oral solution (3 sources) Osmotic Laxative Start: 07-28-2021 End: 09-29-2021 polyethylene glycol (GLYCOLAX) 17 GM/SCOOP powder Follow instructions provided to you from physician's office. 238 g 0 07/28/2021 09/29/2021 Discontinued (Therapy completed) 50 ml sodium chloride 9 mg/ml injection (7 sources) Start: 03-11-2025 IntraVENous, a t 125 mL/hr, CONTINUOUS, Starting on Adalgisa 03/11/25 at 1100, Pre-op (day of surgery) Start: 02-01-2022 IntraVENous, a t 5-250 mL/hr, [...] muscle every 30 days. 0 Active thyroid (detention) 60 mg oral tablet (16 sources) Start: 11-20-2024 take 1 tablet by mouth once daily thyroid ([place]) 60 MG tablet Take 60 mg by mouth Daily 11/20/2024 Active Start: 08-15-2023 take 1 tablet by arsalan th in the morning thyroid ([place] Thyroid) 60 MG tablet Indications: Acquired hypothyroidism (CMS/HCC) , ESS (euthyroid sick syndrome) Take 1 tablet (60 mg) by mouth in the morning. 30 tablet 2 08/15/2023 Active Start: 08-15-2023 take 1 tablet by arsalan th in the morning thyroid ([place] Thyroid) 60 MG tablet Indications: Acquired hypothyroidism (CMS/HCC) , ESS (euthyroid sick syndrome) Take 1 tablet (60 mg) by mouth in the morning. 30 tablet 2 08/15/2023 Active Start: 12-19-2021 take 60 mg by mouth twice daily 60 mg, Oral, 2 times daily, First dose on Adalgisa 02/01/22 at 2100, Until Discontinued Start: 11-09-2021 take 1 tablet by arsalan th twice daily [place] THYROID 90 MG tablet take 1 tablet by mouth twice a day ON AN EMPTY STOMACH 0 11/09/2021 Active take 1 tablet by arsalan th once daily in the morning [place] THYROID 60 MG tablet Take 1 tablet [...] 30 days. 0 Active vitamin b12 1 mg sublingual tablet (20 sources) Vitamin B12 Start: 12-31-2024 take 1 tablet under the tongue once daily Cyanocobalamin 1000 MCG sublingual tablet Indications: Vitamin B-complex deficiency Place 1 tablet under the tongue Daily 30 tablet 5 12/31/2024 Active Start: 12-31-2021 End: 07-30-2024 cyanocobalamin (Vitamin B-12 ) 1000 MCG/ML injection Inject 1,000 mcg into [...] 1 tablet by mouth daily. 0 Active vitamin k2 0.04 mg oral tabl et (5 sources) Menaquinone-7 40 MCG tablet Take by mouth Active vitamin K2 40 mc g tablet Take by mouth. Active Completed/Discontinued Medications Medication Drug Class(es) Dates Sig (Normalized) Sig (Original) acetaminophen 500 mg oral tablet (17 sources) Start: 02-01-2022 End: 03-03-2022 take 2 tablets by mouth every six hours as needed for pain acetaminophen (TYLENOL) 500 MG tablet Take 2 tablets by mouth every 6 hours as needed for Pain 80 tablet 1 02/01/2022 Suspended Start: 02-01-2022 1,000 mg, Oral , EVERY [...] split. Active Aloe Vera 25 MG CAPS (3 sources) take 1 tablet by arsalan th once daily Aloe Vera 25 MG CAPS Take 1 tablet by mouth daily Suspended take 1 tablet by mouth once mat y Aloe Vera 25 MG CAPS Take 1 tablet by mouth daily Active apixaban 2.5 mg oral tablet (1 source) [...] a month 90 days 0 09/14/2022 Active Biotin w/ Vitamins C & E (HAIR SKIN & NAILS GUMMIES PO) (19 sources) End: 12-24-2024 take 1 tablet by mouth in the morning Biotin w/ Vitamins C & E (HAIR SKIN & NAILS GUMMIES PO) Take 1 tablet by mouth in the morning. 12/24/2024 Discontinued (Other) take 1 tablet by mouth in the mo rning Biotin w/ Vitamins C & E (HAIR SKIN & NAILS GUMMIES PO) Take 1 tablet by mouth in the morning. Active take 1 tablet by mouth in the mo rning Biotin w/ Vitamins C & E (HAIR SKIN & NAILS GUMMIES PO) Take 1 tablet by mouth in the morning. 0 Active 50 ml clindamycin 18 mg/ml injection (1 source) Lincosamide Antibacterial Start: 02-01-2022 End: 02-02-2022 900 mg, IntraVENous, EVERY 8 HOURS, 2 doses, First dose on Sat02/01/22 at 1600, Last dose on Sat02/02/22 at 0000 Antimicrobial Indications: Surgical Prophylaxis diclofenac sodium 0.01 mg/mg topical gel (14 sources) Nonsteroidal Anti-inflammatory Drug diclofenac sodium (VOLTAREN) 1 % GEL Apply 2 g topically 2 times daily Suspended 0.4 ml enoxaparin sodium 100 mg/ml prefilled [...] hours. 60 tablet 3 04/10/2021 11/20/2024 Discontinued loratadine 10 mg oral tablet (18 sources) End: 12-31-2024 take 1 tablet by mouth every twenty-four hours as needed loratadine (Claritin) 10 MG tablet Take 10 mg by mouth Daily as needed for allergies 12/31/2024 Discontinued (Other) magnesium citrate 58.2 mg/ml oral solution (2 [...] crush or break. Substituted for Omeprazole (PRILOSEC). spironolactone 25 mg oral tablet (2 sources) Aldosterone Antagonist Start: 06-25-2024 End: 12-31-2024 spironolactone (Aldactone) 25 MG tablet 06/25/2024 12/31/2024 Discontinued Problems Active Problems Problem Classification Problem Date Documented Da te Episodic/Chronic Blindness and vision defects (1 source) Abnormal vision 04-17-2012 Chronic Cardiac dysrhythmias (20 sources) Paroxysmal supraventricular tachycardia; Translations: [PSVT (paroxysmal supraventricular tachycardia)] Onset: 2024 Chronic Congestive heart failure; nonhypertensive (2 sources) Chronic diastolic (congestive) heart failure; Translations: [Chronic diastolic (congestive) heart failure] Onset: 4 Chronic Disorders of lipid metabolism (14 sources) Raised low density lipoprotein cholesterol; Translations: [...] incontinence] Onset: 2 Chronic Heart valve disorders (20 sources) Non-rheumatic mitral regurgitation ; Translations: [Nonrheumatic mitral (valve) insufficiency] Onset: 4 06-01-2024 Chronic Immunity disorders (20 sources) Disorder of immune function; Translations: [Other specified disorders involving the immune mechanism, not elsewhere classified] Onset: 3 01-01-2023 Chronic Malaise and fatigue (20 sources) Chronic fatigue syndrome; Translations: [Chronic fatigue, unspecified] Onset: 2 11-20-2021 Chronic Nutritional deficiencies (20 sources) Vitamin D deficiency; Translations: [Vitamin D deficiency, unspecified] Onset: 2 11-20-2021 Chronic Osteoarthritis (20 sources) Arthritis; Translations: [Unspecified osteoarthritis, unspecified site] Onset: 2 Resolved: 4 04-17-2012 Chronic Other and ill-defined heart disease (17 sources) Diastolic dysfunction; Translations: [Other ill-defined heart diseases] Onset: 4 06-01-2024 Chronic Other connective tissue disease (6 sources) Paroxysmal hematoma of the finger; Translations: [Nontraumatic hematoma of soft tissue] Onset: 5 12-31-2024 Episodic Other gastrointestinal disorders (20 sources) Irritable bowel syndrome with diarrhea; Translations: [Irritable bowel syndrome with diarrhea] Onset: 2 11-20-2021 Chronic Other liver diseases (4 sources) Lesion of liver; Translations: [Liver disease, unspecified] 10-14-2024 Chronic Other nervous system disorders (15 sources) Median neuropathy; Translations: [Other lesions of median nerve, unspecified upper limb] Onset: 2 11-20-2021 Chronic Other nervous system disorders (20 sources) Chronic pain; Translations: [Other chronic pain] Onset: 2 11-20-2021 Chronic Other nervous system disorders (20 sources) Bilateral disorder of median nerves; Translations: [Other lesions of median nerve, bilateral upper limbs] Onset: 3 01-01-2023 Chronic Other nutritional; endocrine; and metabolic disorders (20 sources) Lipoprotein deficiency disorder; Translations: [Lipoprotein deficiency] Onset: 2 11-20-2021 Chronic Other nutritional; endocrine; and metabolic disorders (9 sources) Obesity; Translations: [Obesity, unspecified] Onset: 2 11-20-2021 Chronic Other nutritional; endocrine; and metabolic disorders (20 sources) Obesity caused by energy imbalance; Translations: [Other obesity due to excess calories] Onset: 3 12-25-2022 Chronic Other nutritional; endocrine; and metabolic disorders (1 source) Severe obesity; Translations: [Class 3 severe obesity due to excess calories with body mass index (BMI) of 40.0 to 44.9 in adult] Onset: 1 04-05-2021 Chronic Other nutritional; endocrine; and metabolic disorders (1 source) Abnormal weight loss; Translations: [Abnormal weight loss] Onset: 5 Episodic Other upper respiratory disease (20 sources) Allergic rhinitis due to pollen; Translations: [Allergic rhinitis due to pollen] Onset: 2 11-20-2021 Chronic Prolapse of female genital organs (20 sources) Herniated urinary bladder; Translations: [Cystocele, unspecified] Onset: 2 Chronic Residual codes; unclassified (9 sources) Organic mixed sleep disorder; Translations: [Other sleep disorders] Onset: 2 11-20-2021 Chronic Residual codes; unclassified (20 sources) Organic sleep disorder; Translations: [Other sleep disorders] Onset: 3 01-01-2023 Chronic Residual codes; unclassified (1 source) Postmenopausal state; Translations: [Asymptomatic menopausal state] Episodic Rheumatoid arthritis and related disease (20 sources) Inflammatory polyarthropathy; Translations: [Inflammatory polyarthropathy] Onset: 3 01-01-2023 Chronic Spondylosis; intervertebral disc disorders; other back problems (20 sources) Thoracic spondylosis without myelopathy; Translations: [Spondylosis without myelopathy or radiculopathy, thoracic region] Onset: 2 11-20-2021 Chronic Thyroid disorders (20 sources) Hypothyroidism; Translations: [Other specified hypothyroidism] Onset: 1 02-27-2018 Chronic Unclassified (1 source) History of endometrial ablation Onset: 6 03-13-2016 Unclassified (1 source) New Patient Onset: 5 Unclassified (1 source) Other ventricular tachycardia; Translations: [Other ventricular tachycardia] Onset: 4 Unclassified (1 source) Supraventricular tachycardia, unspecified; Translations: [Supraventricular tachycardia, unspecified] Onset: 4 Past or Other Problems Problem Classification Problem [...] leiomyoma of uterus] Onset: 2 03-13-2016 Episodic Blindness and vision defects (20 sources) Abnormal vision; Translations: [Unspecified visual disturbance] Onset: 4 04-17-2012 Episodic Calculus of urinary tract (20 sources) History of calculus of kidney; Translations: [Personal history of urinary calculi] Onset: 3 04-17-2012 Episodic Cardiac dysrhythmias (20 sources) Palpitations; Translations: [Palpitations] Onset: 3 04-17-2012 Episodic Fluid and electrolyte disorders (20 sources) Hypokalemia; Translations: [Hypokalemia] Onset: 1 11-20-2021 Episodic Gastroduodenal ulcer (except hemorrhage) (20 sources) H/O: gastric ulcer; Translations: [Personal history of peptic ulcer disease] Onset: 2 12-21-2021 Episodic Immunizations and screening for infectious disease (2 sources) Encounter for screening for human papillomavirus (HPV); Translations: [Encounter for screening for human papillomavirus (HPV)] Onset: 5 Episodic Mood disorders (1 source) Mood disorders Onset: 1 04-05-2021 Nonspecific chest pain (20 sources) Chest pain; Translations: [Chest pain, unspecified] [...] 2 12-21-2021 Episodic Other connective tissue disease (20 sources) Fibromyalgia; Translations: [Fibromyalgia] Onset: 3 01-01-2023 [...] Onset: 8 12-12-2017 Episodic Other gastrointestinal disorders (20 sources) H/O: gastrointestinal disease; Translations: [Personal history of other diseases of the digestive system] Onset: 3 Resolved: 4 01-01-2023 Episodic Other lower respiratory disease (3 sources) Dyspnea; Translations: [Shortness of breath] Onset: 4 03-31-2024 Episodic Other lower respiratory disease (1 source) Shortness of breath; Translations: [Shortness of breath] Onset: 4 Episodic Other non-traumatic joint disorders (20 sources) Pain in unspecified knee; Translations: [Pain in joint, lower leg] Onset: 3 Resolved: 5 01-01-2023 Episodic Other nutritional; endocrine; and metabolic disorders (20 sources) Weight loss; Translations: [Abnormal weight loss] Onset: 2 Resolved: 4 07-28-2021 Episodic Other nutritional; endocrine; and metabolic disorders (14 sources) Weight decreased; Translations: [Abnormal weight loss] Onset: 2 Resolved: 4 08-15-2023 Episodic Other screening for suspected conditions (not mental disorders or infectious disease) (19 sources) Patient encounter status; Translations: [Encounter for screening mammogram for malignant neoplasm of breast] Onset: 4 Resolved: 2 Episodic Other skin disorders (20 sources) Easy bruising; Translations: [Other skin changes] Onset: 4 04-17-2012 Episodic Ovarian cyst (20 sources) Cyst of left ovary; Translations: [Unspecified ovarian cyst, left side] Onset: 3 01-01-2023 Episodic Residual codes; unclassified (20 sources) Family history of breast cancer; Translations: [Family history of malignant neoplasm of breast] Onset: 4 11-17-2015 Episodic Residual codes; unclassified (20 sources) History of endometrial ablation; Translations: [Other specified postprocedural states] Onset: 6 03-13-2016 Episodic Residual codes; unclassified (1 source) Bruises easily 04-17-2012 Episodic Residual codes; unclassified (9 sources) Dyssomnia; Translations: [Sleep disorder, unspecified] Onset: 2 11-20-2021 Episodic Residual codes; unclassified (6 sources) History of vaginoplasty; Translations: [Other specified postprocedural states] Onset: 2 Episodic Spondylosis; intervertebral disc disorders; other back problems (20 sources) Cervico-occipital neuralgia; Translations: [Occipital neuralgia] Onset: 2 11-20-2021 Episodic Thyroid disorders (20 sources) Sick-euthyroid syndrome; Translations: [Sick-euthyroid syndrome] Onset: [...] Test Name Value Interpretation Reference Range Facility [facility] 03-16-2025 [facility] (NOTE) Path Number: [id number] -- Diagnosis -- A. DUODENUM, BIOPSY: - [...] D.O. Electronically Signed Out [facility]03/15/2025 Clinical Information Pre-Op Diagnosis: EE (EOSINOPHILIC ESOPHAGITIS); DIVERTICULOSIS OF COLON; WEIGHT LOSS Operative Findings: BIOPSY DUODENAL BLUB; GASTRIC ANTRUM FOR H. PYLORI; BIOPSY SCHATZKI'S RING Operation Performed: ESOPHAGOGASTRODUODENOSCOPY BIOPSY se Source of Specimen A: DUODENAL BX BULB B: GASTRIC ANTRUM BIOPSY FOR H PYLORI C: BIOPSY SCHATZKI RING Gross Description A. CHESTER NEGRO, BIOPSY DUODENAL BULB Received in formalin are two agrawal-white tissue fragments, < 0.1 cm in diameter and 0.5 x 0.4 x 0.2 cm. The smallest fragment may not survive processing. Entirely 1cs. BTree NEGRO, GASTRIC ANTRUM Received in formalin are two agrawal-white tissue fragments from 0.5 to 0.9 cm and are 1.4 x 0.2 x 0.2 cm in aggregate. Entirely 1cs. C. CHESTER NEGRO, BIOPSY SCHATZKI'S RING Received in formalin are [...] negative with appropriate reactive controls. Processing Lab: [address] [address] [place] [address] SURGICAL PATHOLOGY CONSULTATION Patient Name: CHESTER NEGRO. Med Rec: [id number] [facility] ANATOMIC PATHOLOGY [address] [place], [place] [address] [facility] Original Ordering Pr ovider: [facility] Orders Onlyon 03-12-2025 Orders Only [id number] Chester Negro 1960 F Date Provider Department Center 03/12/2025 Yeimy-JOELLE VERDE [facility] Family History Problem Relation Age of Onset Supraventricular tachycardia Mother Atrial fibrillation Mother Heart attack Father Coronary artery disease Sister Coronary artery disease Brother Family Status - Relation Status Age at Mother Alive Father Sister Alive Brother Normal [facility] Surgical Pathology Reporton 03-11-2025 Surgical Pathology Report (NOTE) Path Number: [id number] -- Diagnosis -- A. DUODENUM, BIOPSY: - [...] findings. Jose Villalba D.O. Electronically Signed Out 03/15/2025 Clinical Information Pre-Op Diagnosis: EE (EOSINOPHILIC ESOPHAGITIS); DIVERTICULOSIS OF COLON; WEIGHT LOSS Operative Findings: BIOPSY DUODENAL BLUB; GASTRIC ANTRUM FOR H. PYLORI; BIOPSY SCHATZKI'S RING Operation Performed: ESOPHAGOGASTRODUODENOSCOPY BIOPSY se Source of Specimen A: DUODENAL BX BULB B: GASTRIC ANTRUM BIOPSY FOR H PYLORI C: BIOPSY SCHATZKI RING Gross Description A. CHESTER NEGRO, BIOPSY DUODENAL BULB Received in formalin are two agrawal-white tissue fragments, < 0.1 cm in diameter and 0.5 x 0.4 x 0.2 cm. The smallest fragment may not survive processing. Entirely 1cs. B. CHESTER ZUNK, GASTRIC ANTRUM Received in formalin are two agrawal-white tissue fragments from 0.5 to 0.9 cm and are 1.4 x 0.2 x 0.2 cm in aggregate. Entirely 1cs. C. CHESTER ZLATISHA, BIOPSY SCHATZKI'S RING Received in formalin are multiple agrawal-white tissue fragments from 0.1 to 0.5 cm and are 1.3 x 1.2 x 0.2 cm in aggregate. Entirely 1cs. jj jean pierre Anaya M.D./se:03/12/2025 Microscopic Description A-C. Microscopic examination performed. In part B, sections of gastric type mucosa are noted. The mucosa is lined by foveolar epithelium. Within the lamina propria there is a mild infiltrate of lymphocytes and plasma cells. An immunostain for Helicobacter pylori microorganisms is negative with appropriate reactive controls. Processing Lab: [facility] [address] [place] [address] Interpretation Performed at [facility] [address] [place] [address] SURGICAL PATHOLOGY CONSULTATION Patient Name: CHESTER NEGRO [facility] Rec: [id number] [facility] ANATOMIC PATHOLOGY [address] [place], [place] [address] Normal [facility] CREATININEon 01-25-2025 Creatinine [Mass/Vol] 0.51 mg/dL Low 0.55 - 1.02 mg/dL [facility] GFR/1.73 sq M.predicted CKD-EPI (S/P/Bld) [Vol rate/Area] >60 >=60 mL/min/1.7 3m 2 [facility] [facility] Interpretation and review of laboratory results Abnormal [facility] EGFR-NON AF TURKMEN >60 >=60 mL/min/1.7 3m 2 [facility] US RIGHT UPPER QUADRANTon [address] [address] Ultrasound Report Signed Patient: CHESTER NEGRO MR#: [id number] : 1960 Acct:[id number] Age/Sex: 64 / F ADM Date: 12/09/24 Loc: US Attending Dr: CANDY GILBERT Ordering Physician: CANDY GILBERT Date of Service: 12/09/24 Procedure(s): US right upper quadrant Accession Number(s): [id number] cc: CANDY GILBERT [address] [address] Patient Name: CHESTER NEGRO MRN: [facility]:[id number] date: 1960 Sex: F Assigned Patient Location: US Current Patient Location: US Accession/Order Number: [id number] Exam Date: 12/10/2024 15:01 Report Date: 12/10/2024 15:03 At the request of: CANDY GILBERT Procedure: US right upper quadrant LIMITED ABDOMINAL ULTRASOUND WITH ASSESSMENT OF RIGHT UPPER QUADRANT HISTORY: Hepatic lesion identified with MRI examination. COMPARISON: None Negative ultrasound Del Castillo's sign reported. COMMON BILE DUCT: Normal caliber. No intraluminal abnormality. LIVER CONTOUR: Normal. LIVER PARENCHYMA: Normal echogenicity HEPATIC LESION: None INTRAHEPATIC BILIARY DUCTAL DILATATION No ductal dilatation identified. GALLSTONES: No shadowing gallstones. GALLBLADDER SLUDGE: No gallbladder sludge. GALLBLADDER WALL: Normal thickness PERICHOLECYSTIC FLUID: None Pancreas: Limited assessment without gross abnormality seen. PORTAL VEIN: Normal blood flow. Liver size: Normal No RIGHT hydronephrosis identified. US/US right upper quadrant IMPRESSION: No hepatic mass visualized. Unremarkable right upper quadrant ultrasound with limited assessment of the pancreas. Continued concern for hepatic mass may be further assessed with MRI of the liver with and without contrast. Impression dictated by: Kodak Mccarthy M.D. 12/10/2024 3:03 PM Dictation Location: [place] [address] Electronically authenticated by: [id number] Y Date: 12/10/2024 15:03 Dictated By: Kodak Mccarthy D.O. Signed By: 12/10/24 1506 DD/ 1503 TD/TT: Solar Energy Technician: Irina Johnsonogregla jewell MD - 12/10/2024 [place] [address] Ultrasound Report Signed Patient: CHESTER NEGRO MR#: [id number] : 1960 Acct:[id number] Age/Sex: 64 / F ADM Date: 12/09/24 Loc: US Attending Dr: CANDY GILBERT Ordering Physician: CANDY GILBERT Date of Service: 12/09/24 Procedure(s): US right upper quadrant Accession Number(s): [id number] cc: CANDY GILBERT [place] [address] Patient Name: CHESTER NEGRO MRN: [facility]:[id number] date: 1960 Sex: F Assigned Patient Location: US Current Patient Location: US Accession/Order Number: [id number] Exam Date: 12/10/2024 15:01 Report Date: 12/10/2024 15:03 At the request of: CANDY GILBERT Procedure: US right upper quadrant LIMITED ABDOMINAL ULTRASOUND WITH ASSESSMENT OF RIGHT UPPER QUADRANT HISTORY: Hepatic lesion identified with MRI examination. COMPARISON: None Negative ultrasound Del Castillo's sign reported. COMMON BILE DUCT: Normal caliber. No intraluminal abnormality. LIVER CONTOUR: Normal. LIVER PARENCHYMA: Normal echogenicity HEPATIC LESION: None INTRAHEPATIC BILIARY DUCTAL DILATATION No ductal dilatation identified. GALLSTONES: No shadowing gallstones. GALLBLADDER SLUDGE: No gallbladder sludge. GALLBLADDER WALL: Normal thickness PERICHOLECYSTIC FLUID: None Pancreas: Limited assessment without gross abnormality seen. PORTAL VEIN: Normal blood flow. Liver size: Normal No RIGHT hydronephrosis identified. US/US right upper quadrant IMPRESSION: No hepatic mass visualized. Unremarkable right upper quadrant ultrasound with limited assessment of the pancreas. Continued concern for hepatic mass may be further assessed with MRI of the liver with and without contrast. Impression dictated by: Kodak Mccarthy M.D. 12/10/2024 3:03 PM Dictation Location: [place] [address] Electronically authenticated by: [id number] Y Date: 12/10/2024 15:03 Dictated By: Kodak Mccarthy D.O. Signed By: 12/10/24 1506 DD/ 1503 TD/TT: Solar Energy Technician: [facility] Radiology Study observation (narrative) [facility] US RIGHT UPPER QUADRANTOrder ed By: Radiologist Radiology on 12-10-2024 [facility] Work Phone: ALL CBC WITH AUTO DIFFon BASOPHILS ABSOLUTE AUTO 0 [facility] Basophils/100 WBC (Bld) 0.2 % 0.2 - 2.0 % [facility] Eosinophils/100 WBC (Bld) 7.4 % High 0.9 - 7.0 % [facility] Erythrocyte distribution width (RBC) [Ratio] 11.7 % 11.0 - 15.0 % [facility] Hematocrit (Bld) [Volume fraction] 38.2 % 36.0 - 48.0 % [facility] Hemoglobin (Bld) [Mass/Vol] 13.1 g/dL 12.0 - 16.0 g/dL [facility] IMMATURE GRANULOCYTES ABS AUTO 0.01 [facility] Immature granulocytes/100 WBC (Bld) 0.2 % 0.0 - 0.5 % [facility] Interpretation and review of laboratory results Abnormal [facility] LYMPHOCYTES ABSOLUTE AUTO 1.1 Low [facility] Lymphocytes/100 WBC (Bld) 22.3 % 20.5 - 60.0 % [facility] MCH (RBC) [Entitic mass] 29.7 pg 26.7 - 34.0 pg [facility] MCHC (RBC) [Mass/Vol] 34.3 g/dL 29.9 - 35.2 g/dL [facility] MCV (RBC) [Entitic vol] 86.6 fL 81.0 - 99.0 fL [facility] MONOCYTES ABSOLUTE AUTO 0.5 [facility] Monocytes/100 WBC (Bld) 9.9 % 1.7 - 12.0 % [facility] NEUTROPHILS ABSOLUTE AUTO 2.9 [facility] Neutrophils/100 WBC (Bld) 60 % 43.0 - 75.0 % [facility] Platelet mean volume (Bld) [Entitic vol] 9.4 fL Low 9.5 - 13.5 fL [facility] TBH EO # 0.4 [facility] TB PLT 175 [facility] RBC 4.41 [facility] WBC 4.8 [facility] HPV DNA High Riskon 11-27-19 25 HPV Interp Normal [facility] Comment on above: Result Comment: This [...] other forensic purposes. Performed By: #### H [facility] #### [address] [address] Button Pusher: Sonu Heredia MD HPV Type 16 Not detected Normal [facility] Comment on above: Performed By: #### H [facility] #### [address] [address] Button Pusher: Sonu Heredia MD HPV Type 18 Not detected Normal [facility] Comment on above: Performed By: #### H [facility] #### [address] [address] Button Pusher: Sonu Heredia MD Other High Risk HPV Not detected Normal [facility] Comment on above: Performed By: #### H [facility] #### [address] [address] Button Pusher: Sonu Heredia MD HPV DNA High Riskon 11-26-19 HPV Sample .THIN PREP Normal [facility] Comment on above: Performed By: #### H [facility] #### [address] [address] Button Pusher: Sonu Heredia MD Source CERVICAL MATERIAL Normal [facility] Comment on above: Performed By: #### H [facility] #### [address] [address] Button Pusher: Sonu Heredia MD Cytology Reporton 11-24-2024 Cytology report Cyto stain.thin prep Doc (Cvx/Vag) (NOTE) Path Number: [id number] DIAGNOSIS Imaged ThinPrep Pap - Cervical (1 monolayer slide): Specimen Adequacy: Satisfactory for evaluation. - Endocervical/transformation zone component present. Descriptive Diagnosis: Negative for [...] or for other forensic [place] [address] . Source of Specimen: A: Imaged ThinPrep Pap - Cervical (1 monolayer slide) HPV Reflex?.................... 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 [place] [id number] Normal [facility] Office Visiton 10-13-2024 Follow-up visit [id number] Chester Negro 1960 F Date Provider Department Center 10/13/2024 Joss-VIK [facility] Family History Problem Relation Age of Onset Supraventricular tachycardia Mother Atrial fibrillation Mother Heart attack Father Coronary artery disease Sister Coronary artery disease Brother Family Status - Relation Status Age at Mother Alive Father Sister Alive Brother Level of Service:00554 NM OFFICE/OUTPATIENT ESTABLISHED LOW MDM 20 MIN Normal [facility] MR Heart cine for blood flow velocity mappingon 08-20-2024 * * *Final Report* * * DATE OF EXAM: Aug 20 2024 12:01PM HCM 0704 - MRI CARDIAC VELOCITY FLOW MAP / PROCEDURE REASON: Chronic diastolic (congestive) heart failure * * * * Physician Interpretation * * * * RESULT: Cardiac MRI Report: [facility] Date of service: 08/20/2024 10:56:05 AM Linked orders:[id number] CARD MORPH FUNC WO/W IVCON;[id number] CARDIAC VELOCITY FLOW MAP. Ordering physician: VIK [...] T2 / ECV T2 * : +------+ +------+ T1 pre (ms) +/- +------+ +------+ Base 1053.27 86.65 +------+ +------+ Mid 1011.18 96.93 +------+ +------+ [place] 970.72 117.30 +------+ +------+ Global 1018.40 103.55 +------+ +------+ Normal values based on healthy individuals: T1: 950 +/- 21 ms; ECV: 26 +/- 4% Aortic Valve: There is no aortic regurgitation. AV Flow Quantification: ST Junction Forward Volume: 83 ml Reverse Volume: 1 ml Net Forward Volu (more content not included)... [facility] RADIOLOGY Provider, Rosa Lawson - 08/20/2024 * * *Final Report* * * DATE OF EXAM: Aug 20 2024 12:01PM HCM 0704 - MRI CARDIAC VELOCITY FLOW MAP / PROCEDURE REASON: Chronic diastolic (congestive) heart failure * * * * Physician Interpretation * * * * RESULT: Cardiac MRI Report: [facility] Date of service: 08/20/2024 10:56:05 AM Linked orders:[id number] CARD MORPH FUNC WO/W IVCON;[id number] CARDIAC VELOCITY FLOW MAP. Ordering physician: VIK [...] T2 / ECV T2 * : +------+ +------+ T1 pre (ms) +/- +------+ +------+ Base 1053.27 86.65 +------+ +------+ Mid 1011.18 96.93 +------+ +------+ [place] 970.72 117.30 +------+ +------+ Global 1018.40 103.55 +------+ +------+ Normal values based on healthy individuals: T1: 950 +/- 21 ms; ECV: 26 +/- 4% Aortic Valve: There is no aortic regurgitation. AV Flow Quantification: ST Junction Forward Volume: 83 ml Reverse Volume: 1 ml Net Forward Volume: 82 ml Regurgitant Fraction: 1 % Pulmonic Valve: PV Flow Quantification: (more content not included)... [facility] MRI CARD MORPH FUNC WO/W IVC ONon 08-20-2024 MRI CARD MORPH FUNC WO/W IVCON * * *Final Report* * * DATE OF EXAM: Aug 20 2024 12:01PM HCM 0703 - MRI CARD MORPH FUNC WO/W IVCON / PROCEDURE REASON: Chronic diastolic (congestive) heart failure * * * * Physician Interpretation * * * * RESULT: Cardiac MRI Report: [facility] Date of service: 08/20/2024 10:56:05 AM Linked orders:[id number] CARD MORPH FUNC WO/W IVCON;[id number] CARDIAC VELOCITY FLOW MAP. Ordering physician: VIK [...] T2 / ECV T2 * : +------+ +------+ T1 pre (ms) +/- +------+ +------+ Base 1053.27 86.65 +------+ +------+ Mid 1011.18 96.93 +------+ +------+ [place] 970.72 117.30 +------+ +------+ Global 1018.40 103.55 +------+ +------+ Normal values based on healthy individuals: T1: [...] 0 % (more content not included)... Normal [facility] MRI CARDIAC MORPH FUNC WO/W IVCONon 08-20-2024 * * *Final Report* * * DATE OF EXAM: Aug 20 2024 12:01PM HCM 0703 - MRI CARD MORPH FUNC WO/W IVCON / PROCEDURE REASON: Chronic diastolic (congestive) heart failure * * * * Physician Interpretation * * * * RESULT: Cardiac MRI Report: [facility] Date of service: 08/20/2024 10:56:05 AM Linked orders:[id number] CARD MORPH FUNC WO/W IVCON;[id number] CARDIAC VELOCITY FLOW MAP. Ordering physician: VIK [...] T2 / ECV T2 * : +------+ +------+ T1 pre (ms) +/- +------+ +------+ Base 1053.27 86.65 +------+ +------+ Mid 1011.18 96.93 +------+ +------+ [place] 970.72 117.30 +------+ +------+ Global 1018.40 103.55 +------+ +------+ Normal values based on healthy individuals: T1: 950 +/- 21 ms; ECV: 26 +/- 4% Aortic Valve: There is no aortic regurgitation. AV Flow Quantification: ST Junction Forward Volume: 83 ml Reverse Volume: 1 ml Net Forward Vol (more content not included)... [facility] RADIOLOGY Provider, [facility] - 08/20/2024 * * *Final Report* * * DATE OF EXAM: Aug 20 2024 12:01PM HCM 0703 - MRI CARD MORPH [facility] WO/W IVCON / PROCEDURE REASON: Chronic diastolic (congestive) heart failure * * * * Physician Interpretation * * * * RESULT: Cardiac MRI Report: [facility] Date of service: 08/20/2024 10:56:05 AM Linked orders:[id number] CARD MORPH FUNC WO/W IVCON;[id number] CARDIAC VELOCITY FLOW MAP. Ordering physician: VIK [...] T2 / ECV T2 * : +------+ +------+ T1 pre (ms) +/- +------+ +------+ Base 1053.27 86.65 +------+ +------+ Mid 1011.18 96.93 +------+ +------+ [place] 970.72 117.30 +------+ +------+ Global 1018.40 103.55 +------+ +------+ Normal values based on healthy individuals: T1: 950 +/- 21 ms; ECV: 26 +/- 4% Aortic Valve: There is no aortic regurgitation. AV Flow Quantification: ST Junction Forward Volume: 83 ml Reverse Volume: 1 ml Net Forward Volume: 82 ml Regurgitant Fraction: 1 % Pulmonic Valve: PV Flow Quantification: (more content not included)... [facility] MRI CARDIAC VELOCITY FLOW TN Abhishek 08-20-2024 MRI CARDIAC VELOCITY FLOW MAP * * *Final Report* * * DATE OF EXAM: Aug 20 2024 12:01PM HCM 0704 - MRI CARDIAC VELOCITY FLOW MAP / PROCEDURE REASON: Chronic diastolic (congestive) heart failure * * * * Physician Interpretation * * * * RESULT: Cardiac MRI Report: [facility] Date of service: 08/20/2024 10:56:05 AM Linked orders:[id number] CARD MORPH FUNC WO/W IVCON;[id number] CARDIAC VELOCITY FLOW MAP. Ordering physician: VIK [...] T2 / ECV T2 * : +------+ +------+ T1 pre (ms) +/- +------+ +------+ Base 1053.27 86.65 +------+ +------+ Mid 1011.18 96.93 +------+ +------+ [place] 970.72 117.30 +------+ +------+ Global 1018.40 103.55 +------+ +------+ Normal values based on healthy individuals: T1: [...] 0 % (more content not included)... Normal [facility] No Panel Informationon 08-20 IMPRESSION: 1. [...] GREGORY MD on Aug 20 2024 3:56PM [facility] RADIOLOGY Radiology Study observation (narrative) [facility] No Panel InformationOrdered By: Ccf Provider on 08-20-2024 [facility] 36on 08-18-2024 36 I received a call fr om the patient regarding an MRI order that was supposed to be sent to [facility], she requests a call back at [phone] to discuss further. Normal [facility] Office Visiton 08-04-2024 Follow-up visit [id number] Chester Negro 1960 F Date Provider Department Center 08/04/2024 VIK GARCIA ORALIA [facility] Family History Problem Relation Age of Onset Supraventricular tachycardia Mother Atrial fibrillation Mother Family Status - Relation Status Age at Mother Level of Service:83327 NM OFFICE/OUTPATIENT NEW MODERATE MDM 45 MINUTES Normal [facility] XR THORACIC SPINE 2 VIEWSon 07-30-2024 [...] PANELon 07-11-2024 Anion gap [Moles/Vol] 12.5 mmol/L [facility] Calcium [Mass/Vol] 9.1 mg/dL 8.5 - 10. 1 mg/dL [facility] Chloride [Moles/Vol] 108 mmol/L High 98 - 10 7 mmol/L [facility] CO2 [Moles/Vol] 28.8 mmol/L 21.0 - 32.0 mmol/L [facility] Creatinine [Mass/Vol] 0.68 mg/dL 0.55 - 1.02 mg/dL [facility] GFR/1.73 sq M.predicted CKD-EPI (S/P/Bld) [Vol rate/Area] >60 >=60 mL/min/1.7 3m 2 [facility] Glucose [Mass/Vol] 89 mg/dL 74 - 106 mg/dL [facility] Interpretation and review of laboratory results Abnormal [facility] Potassium [Moles/Vol] 4.3 mmol/L 3.5 - 5.1 mmol/L [facility] Sodium [Moles/Vol] 145 mmol/L 136 - 145 mmol/L [facility] TBH EGFR-NON AF TURKMEN >60 >=60 mL/min/1.7 3m 2 [facility] Urea nitrogen [Mass/Vol] 9 mg/dL 7.0 - 18.0 mg/dL [facility] Urea nitrogen/Creatinine [Mass ratio] 13.2 mg/mg [facility] Office Visiton 06-24-2024 Follow-up visit [id number] Chester Negro 1960 F Date Provider Department Center 06/24/2024 ARLENE CARBALLO Family History Problem Relation Age of Onset Supraventricular tachycardia Mother Family Status - Relation Status Age at Mother Level of Service:32682 NM OFFICE/OUTPATIENT ESTABLISHED MOD MDM 30 MIN Normal [facility] 36on 06-11-2024 36 Regarding stress phu t result from 06/01/2024: MD Isabel Patel MA Please reassure the patient that her stress test was nonischemic Thank you. Before I call her, were you able to review the echo she had on 06/01 also? And if they're normal, does she still need apt with you on 06/24? Please advise. Thanks. Normal [facility] Office Visiton 05-20-2024 Follow-up visit [id number] Wynne 1960 Date Provider Department Center 05/20/2024 ARLENE CARBALLO Family History Problem Relation Age of Onset Supraventricular tachycardia Mother Family Status - Relation Status Age at Mother Level of Service:81227 NM OFFICE/OUTPATIENT NEW MODERATE MDM 45 MINUTES Normal [facility] JORGE FABIAN DIGITAL SCREEN ONEIL Renteria 04-27-2024 [facility] FABIAN DIGITAL SCREEN BILATERAL [...] to the patient regarding the results. The [employer] recommends annual mammograms for women 40 years and older. Performing Facility: [address] [place] [address] Interpreted by: Denice Danielle MD Signed by: Denice Danielle MD 04/27/24 Final result Normal [facility] DEXA BONE DENSITY AXIAL SK ETONon 03-20-2022 Normal bone mineral density by WHO [...] have additional risk factors. Template code: [id number] [facility] EXAMINATION: BONE DENSITOMETRY 03/20/2022 6:25 am TECHNIQUE: A bone density dual x-ray absorptiometry (DXA) scan was performed of the lumbar spine and left hip on a MICMALI system. COMPARISON: None. HISTORY: ORDERING SYSTEM PROVIDED HISTORY: Post-menopausal TECHNOLOGIST PROVIDED HISTORY: post menopausal Gender: F Age: 61 y/o FINDINGS: LUMBAR SPINE: L1-L4 BMD: 1.461 g/cm2 T-score: 2.1 Z-score: 2.5 LEFT TOTAL HIP: BMD: 1.156 g/cm2 T-score: 1.2 Z-score: 1.5 LEFT FEMORAL NECK: BMD: 1.136 g/cm2 T-score: 0.7 Z-score: 1.4 FRAX: Not Indicated. [facility] Derek Verde DO - 03/20/2022 EXAMINATION: BONE DENSITOMETRY 03/20/2022 6:25 am TECHNIQUE: A bone density dual x-ray absorptiometry (DXA) scan was performed of the lumbar spine and left hip on a MICMALI system. COMPARISON: None. HISTORY: ORDERING SYSTEM PROVIDED [...] have additional risk factors. Template code: RPnmNSD_[id number] [facility] Work Phone: Radiology Study observation (narrative) [facility] Phone: DEXA BONE DENSITY AXIAL SKEL ETONOrdered By: Derek Verde on 03-20-2022 [facility] Work Phone: Hemoglobin and Hematocriton 02-01-2022 Hematocrit (Bld) [Volume fraction] 35.5 % Low 36 - 46 % [facility] Hemoglobin (Bld) [Mass/Vol] 12.5 g/dL 12 - 16 g/dL [facility] Interpretation and review of laboratory results Abnormal [facility] [employer] Urinalysis with Reflex to Cu ltureon 02-01-2022 Bilirubin Urine Negative NEGATIVE [facility] Color, UA Yellow Yellow [facility] Glucose, Ur Negative NEGATIVE [facility] Ketones Ql (U) Negative NEGATIVE [facility] Leukocyte esterase Test strip Ql (U) Negative NEGATIVE [facility] Nitrite, Urine Negative NEGATIVE [facility] pH, UA 6.5 5 - 8 [facility] Protein, UA Negative NEGATIVE [facility] Specific [place], UA 1.008 1 - 1.03 [facility] Turbidity UA Clear Clear [facility] Urinalysis Comments Microscopic exam not performed based on chemical results unless requested in original order. [facility] Urine Hgb Negative NEGATIVE [facility] Urobilinogen, Urine Normal Normal [facility] EKG 12 leadOrdered By: Dayanna Jones on 01-23-2022 Atrial Rate 57 BPM [facility] Work Phone: [phone] 0 P [place] 6 degrees [facility] Work Phone: P-R Interval 134 ms [facility] Work Phone: Q-T Interval 430 ms [facility] Work Phone: QRS Duration 92 ms [facility] Work Phone: QTc Calculation (Bazett) 418 ms [facility] Work Phone: R [place] -27 degrees [facility] Work Phone: T [place] -7 degrees [facility] Work Phone: Ventricular Rate 57 BPM [facility] [employer] Work Phone: [facility] Work Phone: EKG 12 leadon 01-23-2022 Sinus bradycardia Low voltage QRS Borderline ECG When compared with ECG of 07-MAR-2016 09:50, No significant change was found [facility] Yevgeniy Mon MD - 01/23/2022 Sinus bradycardia Low voltage QRS Borderline ECG When compared with ECG of 07-MAR-2016 09:50, No significant change was found [facility] Work Phone: Urine cultureon 01-23-2022 Bacteria identified Cx Nom (U) NO SIGNIFICANT GROWTH [facility] Specimen Description .[facility] C[facility]INE [facility] Basic Metabolic Panel w/ Ref se to MGon 01-22-2022 Anion gap [Moles/Vol] 8 mmol/L Low 9 - 17 mmol/L [facility] Calcium [Mass/Vol] 9.5 mg/dL 8.6 - 10. 4 mg/dL [facility] Chloride [Moles/Vol] 104 mmol/L 98 - 10 7 mmol/L [facility] CO2 [Moles/Vol] 27 mmol/L 20 - 31 mmol/L [facility] Creatinine [Mass/Vol] 0.51 mg/dL 0.5 - 0.9 mg/dL [facility] GFR >60 60 - PI NF mL/min [facility] GFR Non- >60 60 - PINF mL/min [facility] GFR/1.73 sq M.predicted MDRD (S/P/Bld) [Vol rate/Area] [facility] Comment on above: Average GFR for 50-5 9 years old: 93 mL/min/1.73sq m Chronic Kidney Disease: <60 mL/min/1.73sq m Kidney failure: <15 mL/min/1.73sq m eGFR calculated using average adult body mass. Additional eGFR calculator available at: http://www.Genasys.SSEV/multiple_crcl_2012.htm Glucose [Mass/Vol] 87 mg/dL 70 - 99 mg/dL [facility] Interpretation and review of laboratory results Abnormal [facility] Potassium [Moles/Vol] 4.5 mmol/L 3.7 - 5.3 mmol/L [facility] Sodium [Moles/Vol] 139 mmol/L 135 - 144 mmol/L [facility] Urea nitrogen (BldV) [Mass/Vol] 13 mg/dL 6 - 20 mg/dL [facility] CBC auto differentialon 01-05 Absolute Eos # 0.50 High [facility] Absolute Lymph # 1.50 [facility] Absolute [place] # 0.50 [facility] Basophils (Bld) [#/Vol] 0.00 10*3/uL [facility] Basophils/100 WBC (Bld) 0 % 0 - 2 % [facility] Eosinophils/100 WBC (Bld) 6 % High 0 - 4 % [facility] Hematocrit (Bld) [Volume fraction] 42.2 % 36 - 46 % [facility] Hemoglobin (Bld) [Mass/Vol] 14.2 g/dL 12 - 16 g/dL [facility] Interpretation and review of laboratory results Abnormal [facility] Lymphocytes/100 WBC (Bld) 21 % Low 24 - 44 % [facility] MCH (RBC) [Entitic mass] 28.5 pg 26 - 34 pg [facility] MCHC (RBC) [Mass/Vol] 33.6 g/dL 31 - 37 g/dL [facility] MCV (RBC) [Entitic vol] 84.7 fL 80 - 100 fL [facility] Monocytes/100 WBC (Bld) 7 % 1 - 7 % [facility] Platelet distribution width (Bld) [Ratio] 13.4 % 11.5 - 14.9 % [facility] Platelet mean volume (Bld) [Entitic vol] 8.1 fL 6 - 12 fL [facility] Platelets (Bld) [#/Vol] 217 10*3/uL [facility] RBC (Bld) [#/Vol] 4.98 10*6/uL 4 - 5.2 m/uL [facility] Segmented neutrophils/100 WBC (Bld) 66 % 36 - 66 % [facility] Segs Absolute 4.70 [facility] WBC (Bld) [#/Vol] 7.1 10*3/uL [facility] No Panel Informationon 01-22 No acute cardiopulmo [...] pleural effusion. Normal cardiomediastinal silhouette. MHPN RIS Patrick Harris P - 01/22/2022 EXAMINATION: TWO XRAY VIEWS OF THE CHEST 01/22/2022 1:05 pm COMPARISON: Chest x-ray dated 22 Nov 2017 HISTORY: ORDERING SYSTEM PROVIDED HISTORY: Pre-op testing TECHNOLOGIST PROVIDED HISTORY: pre-op Reason for Exam: pre op surgery 02/01/22, no current chest complaints FINDINGS: No acute airspace infiltrate. No pneumothorax or pleural effusion. Normal cardiomediastinal silhouette. IMPRESSION: No acute cardiopulmonary disease. [facility] Work Phone: Radiology Study observation (narrative) [facility] Work Phone: No Panel InformationOrdered By: Patrick Jimenez on 01-22-2022 [facility] Work Phone: Serum (quantitativ e)on 01-22-2022 hCG Quant 2 NINF [facility] Comment on above: Non-preg premeno <=5 Postmeno <=8 Male <=3 If HCG results do not concur with clinical observations, additional testing to confirm results is recommended. Elevated results not associated with may be found in patients with other diseases such as tumors of the germ cells (testis, ovaries, etc.), bladder, pancreas, stomach, lungs, and liver. [facility] TYPE AND SCREENon 01-22-2022 ABO/Rh Negative [facility] Arm Band Number [id number] [employer] Expiration Date 02/04/2022,2352 A Fourth Act Urinalysison 01-22-2022 Bilirubin Urine Negative NEGATIVE [employer] Color, UA Yellow Yellow [facility] Glucose, Ur Negative NEGATIVE [facility] Ketones Ql (U) Negative NEGATIVE [facility] Leukocyte esterase Test strip Ql (U) Negative NEGATIVE [facility] Nitrite, Urine Negative NEGATIVE [facility] pH, UA 6.5 5 - 8 [facility] Protein, UA Negative NEGATIVE [facility] Specific [place], UA 1.012 1 - 1.03 [facility] Turbidity UA Clear Clear [facility] Urinalysis Comments Microscopic exam not performed based on chemical results unless requested in original order. [facility] Urine Hgb Negative NEGATIVE [facility] Urobilinogen, Urine Normal Normal [facility] Microscopic Urinalysison Bacteria, UA FEW Abnormal None [facility] Casts UA 0 TO 2 /LPF [facility] Epithelial Cells UA 6 TO 9 /HPF [facility] Interpretation and review of laboratory results Abnormal [facility] RBC, UA 3 to 5 /HPF [facility] WBC, UA 3 to 5 /HPF [facility] Urinalysis with Reflex to Cu ltureon 12-27-2021 Bilirubin Urine Negative NEGATIVE [facility] Color, UA Yellow Yellow [facility] Glucose, Ur Negative NEGATIVE [facility] Interpretation and review of laboratory results Abnormal [facility] Ketones Ql (U) Negative NEGATIVE [facility] Leukocyte esterase Test strip Ql (U) MOD Abnormal NEGATIVE [facility] Nitrite, Urine Negative NEGATIVE [facility] pH, UA 6.0 [facility] Protein, UA Negative NEGATIVE [facility] Specific [place], UA 1.018 [facility] Turbidity UA Clear Clear [facility] Urine Hgb Negative NEGATIVE [facility] Urobilinogen, Urine Normal Normal [facility] JORGE FABIAN DIGITAL SCREEN BILA TERALon 12-25-2021 Unremarkable study o f the breasts. No evidence of significant interval change. BIRADS: BIRADS - CATEGORY 1 Negative, no evidence of malignancy. Normal interval follow-up is recommended in 12 months. OVERALL ASSESSMENT - NEGATIVE A letter of notification will be sent to the patient regarding the results. The [employer] recommends annual mammograms for women 40 years and older. [facility] EXAMINATION: SCREENING DIGITAL BILATERAL MAMMOGRAM [...] suspicious microcalcification, or area of architectural distortion. [facility] Radiology Study observation (narrative) [employer] Phone: JORGE FABIAN DIGITAL SCREEN BILA TERALOrdered By: Glory Joy on 12-25-2021 [facility] [employer] Phone: Free T3on 11-29-2021 FT3 6.51 pg/mL High 2.00-4.40 [facility] [employer] Comment on above: Performed By: #### F T3, TSH, FT4 #### [facility] [address], [place] [id number] Free T4on 11-29-2021 Free T4 [Mass/Vol] 1.24 ng/dL Normal 0.80-1.80 [facility] [employer] Comment on above: Performed By: #### F T3, TSH, FT4 #### [facility] [address], [place] [id number] TSHon 11-29-2021 TSH 1.100 uIU/mL Normal 0.400-4.50 0 [facility] [employer] Comment on above: Performed By: #### F T3, TSH, FT4 #### [facility] [address], [place] [id number] Free T3on 10-23-2021 FT3 2.10 pg/mL Normal 2.00-4.40 [facility] [employer] Comment on above: Performed By: #### F T3, TSH, FT4 #### [facility] [address], [place] [id number] Free T4on 10-23-2021 Free T4 [Mass/Vol] 0.59 ng/dL Low 0.80-1.80 Valerie tyson [facility] [place] [employer] [place] Comment on above: Performed By: #### F T3, TSH, FT4 #### [facility] [address], [place] [id number] Q - T3 TOTALon 10-23-2021 T3, TOTAL 84 ng/dL Normal 76-181 [facility] Comment on above: Order Comment: [facility] performed at: [facility], [facility], [address] [facility], [address] [place], [address], Neuro Intensivist Physician: Roque Guerrero MDQuest Collection Date/Time: [id number] Results Received Date/Time: [id number] Reported Date/Time: FASTING: NO Performed By: #### F T3, TSH, FT4 #### [facility] [address], [place] [id number] Q - T3,REVERSE,LC/MS/MSon T3 REVERSE, LC/MS/MS 6 ng/dL Low 8-25 [facility] Comment on above: Order Comment: Quest performed at: [facility], [facility], [address], [place], [place], , Neuro Intensivist Physician: Kale Leon M.D.,PhDQuest Collection Date/Time: [id number] Results Received Date/Time: [id number] Reported Date/Time: FASTING: NO Result Comment: This test was developed and its analytical performance characteristics have been determined by [facility] [place], [place]. It has not been cleared or approved by the U.S. Food and Drug Administration. This assay has been validated pursuant to the CLIA regulations and is used for clinical purposes. Performed By: #### F T3, TSH, FT4 #### [facility] [address], [place] [id number] TSHon 10-23-2021 TSH 165.300 uIU/mL High 0.400-4.50 0 [facility] Comment on above: Performed By: #### F T3, TSH, FT4 #### [facility] [address], [place] [id number] Basic Metabolic Panelon -0 Anion gap [Moles/Vol] 18 mmol/L Normal 12-20 [facility] Comment on above: Result Comment: Effe ctive 07/13/2019 reference range changed. Performed By: #### C RP, CK, TSH, FT4, FT3, ESR, CBCAD, BMP #### [facility] [address], [place] [id number] Calcium [Mass/Vol] 9.9 mg/dL Normal 8.6-10.2 [facility] Comment on above: Performed By: #### C RP, CK, TSH, FT4, FT3, ESR, CBCAD, BMP #### [facility] [address], [place] [id number] Chloride [Moles/Vol] 107 mmol/L Normal 98-107 [facility] Comment on above: Performed By: #### C RP, CK, TSH, FT4, FT3, ESR, CBCAD, BMP #### [facility] [address], [place] [id number] CO2 [Moles/Vol] 23 mmol/L Normal 20-31 [facility] Comment on above: Performed By: #### C RP, CK, TSH, FT4, FT3, ESR, CBCAD, BMP #### [facility] [address], [place] [id number] Creatinine [Mass/Vol] 0.7 mg/dL Normal 0.6-1.4 [facility] Comment on above: Performed By: #### C RP, CK, TSH, FT4, FT3, ESR, CBCAD, BMP #### [facility] [address], [place] [id number] eGFRAA 108 mL/min/1.73m2 Normal >60 [facility] Comment on above: Performed By: #### C RP, CK, TSH, FT4, FT3, ESR, CBCAD, BMP #### [facility] [address], [place] [id number] eGFRNAA 89 mL/min/1.73m2 Normal >60 [facility] [employer] Comment on above: Performed By: #### C RP, CK, TSH, FT4, FT3, ESR, CBCAD, BMP #### [facility] [address], [place] [id number] Glucose [Mass/Vol] 86 mg/dL Normal 65-99 [facility] [employer] Comment on above: Result Comment: For FASTING Glucose --- ADA reference ranges: Normal 65-99 mg/dl Prediabetes 100-125 Diabetes >/= 126 Performed By: #### C RP, CK, TSH, FT4, FT3, ESR, CBCAD, BMP #### [facility] [address], [place] [id number] Potassium [Moles/Vol] 4.5 mmol/L Normal 3.5-5.5 [facility] [employer] Comment on above: Performed By: #### C RP, CK, TSH, FT4, FT3, ESR, CBCAD, BMP #### [facility] [address], [place] [id number] Sodium [Moles/Vol] 143 mmol/L Normal 135-146 [facility] [employer] Comment on above: Performed By: #### C RP, CK, TSH, FT4, FT3, ESR, CBCAD, BMP #### [facility] [address], [place] [id number] Urea nitrogen [Mass/Vol] 13 mg/dL Normal 7-25 [facility] [employer] Comment on above: Performed By: #### C RP, CK, TSH, FT4, FT3, ESR, CBCAD, BMP #### [facility] [address], [place] [id number] C-Reactive Proteinon 022 CRP IV 1.2 mg/dl Normal <5.0 [facility] [employer] Comment on above: Performed By: #### C RP, CK, TSH, FT4, FT3, ESR, CBCAD, BMP #### [facility] [address], [place] [id number] Complete Blood Count with Au to Diffon 07-12-2021 Basophils (Bld) [#/Vol] 0.02 10*3/uL Normal 0.00-0.20 [facility] Specialist Comment on above: Performed By: #### C RP, CK, TSH, FT4, FT3, ESR, CBCAD, BMP #### [facility] [address], [place] [id number] Basophils/100 WBC (Bld) 0.3 % Normal [facility] Specialist Comment on above: Performed By: #### C RP, CK, TSH, FT4, FT3, ESR, CBCAD, BMP #### [facility] [address], [place] [id number] Eosinophils (Bld) [#/Vol] 0.69 10*3/uL High 0.02-0.50 [facility] [employer] Comment on above: Performed By: #### C RP, CK, TSH, FT4, FT3, ESR, CBCAD, BMP #### [facility] [address], [place] [id number] Eosinophils/100 WBC (Bld) 9.2 % Normal [facility] Specialist Comment on above: Performed By: #### C RP, CK, TSH, FT4, FT3, ESR, CBCAD, BMP #### [facility] [address], [place] [id number] Erythrocyte distribution width (RBC) [Ratio] 12.2 % Normal 11.0-15.0 [facility] [employer] Comment on above: Performed By: #### C RP, CK, TSH, FT4, FT3, ESR, CBCAD, BMP #### [facility] [address], [place] [id number] Hematocrit (Bld) [Volume fraction] 40.9 % Normal 35.0-47.0 [facility] [employer] Comment on above: Performed By: #### C RP, CK, TSH, FT4, FT3, ESR, CBCAD, BMP #### [facility] [address], [place] [id number] Hemoglobin (Bld) [Mass/Vol] 13.5 g/dL Normal 11.6-15.5 [facility] [employer] Comment on above: Performed By: #### C RP, CK, TSH, FT4, FT3, ESR, CBCAD, BMP #### [facility] [address], [place] [id number] Lymphocytes (Bld) [#/Vol] 1.4 10*3/uL Normal 0.9-3.9 [facility] Specialist Comment on above: Performed By: #### C RP, CK, TSH, FT4, FT3, ESR, CBCAD, BMP #### [facility] [address], [place] [id number] Lymphocytes/100 WBC (Bld) 18.1 % Normal [facility] Specialist Comment on above: Performed By: #### C RP, CK, TSH, FT4, FT3, ESR, CBCAD, BMP #### [facility] [address], [place] [id number] MCH (RBC) [Entitic mass] 28.6 pg Normal 27.0-33.0 [facility] Specialist Comment on above: Performed By: #### C RP, CK, TSH, FT4, FT3, ESR, CBCAD, BMP #### [facility] [address], [place] [id number] MCHC (RBC) [Mass/Vol] 33.0 g/dL Normal 32.0-36.0 [facility] Specialist Comment on above: Performed By: #### C RP, CK, TSH, FT4, FT3, ESR, CBCAD, BMP #### [facility] [address], [place] [id number] MCV (RBC) [Entitic vol] 87 fL Normal 80-100 [facility] Specialist Comment on above: Performed By: #### C RP, CK, TSH, FT4, FT3, ESR, CBCAD, BMP #### [facility] [address], [place] [id number] Monocytes (Bld) [#/Vol] 0.7 10*3/uL Normal 0.2-0.9 [facility] Specialist Comment on above: Performed By: #### C RP, CK, TSH, FT4, FT3, ESR, CBCAD, BMP #### [facility] [address], [place] [id number] Monocytes/100 WBC (Bld) 8.7 % Normal [facility] Specialist Comment on above: Performed By: #### C RP, CK, TSH, FT4, FT3, ESR, CBCAD, BMP #### [facility] [address], [place] [id number] Neutrophils (Bld) [#/Vol] 4.7 10*3/uL Normal 1.5-7.8 [facility] Specialist Comment on above: Performed By: #### C RP, CK, TSH, FT4, FT3, ESR, CBCAD, BMP #### [facility] [address], [place] [id number] Neutrophils/100 WBC (Bld) 63.3 % Normal [facility] Specialist Comment on above: Performed By: #### C RP, CK, TSH, FT4, FT3, ESR, CBCAD, BMP #### [facility] [address], [place] [id number] Platelet mean volume (Bld) [Entitic vol] 10.00 fL Normal 7.50-12.[address] [facility] Comment on above: Performed By: #### C RP, CK, TSH, FT4, FT3, ESR, CBCAD, BMP #### [facility] [address], [place] [id number] Platelets (Bld) [#/Vol] 267 10*3/uL Normal 140-400 [facility] Specialist Comment on above: Performed By: #### C RP, CK, TSH, FT4, FT3, ESR, CBCAD, BMP #### [facility] [address], [place] [id number] RBC (Bld) [#/Vol] 4.72 10*6/uL Normal 3.90-5.20 [facility] Specialist Comment on above: Performed By: #### C RP, CK, TSH, FT4, FT3, ESR, CBCAD, BMP #### [facility] [address], [place] [id number] RDW-SD 39.2 fL Normal 37.0-50.0 [facility] Specialist Comment on above: Performed By: #### C RP, CK, TSH, FT4, FT3, ESR, CBCAD, BMP #### [facility] [address], [place] [id number] WBC (Bld) [#/Vol] 7.5 10*3/uL Normal 3.8-11.0 Valerie rn [employer] Comment on above: Performed By: #### C RP, CK, TSH, FT4, FT3, ESR, CBCAD, BMP #### [facility] [address], [place] [id number] Creatine Kinaseon 07-12-2021 CK [Catalytic activity/Vol] 16 U/L Low 26-192 [facility] [employer] Comment on above: Performed By: #### C RP, CK, TSH, FT4, FT3, ESR, CBCAD, BMP #### [facility] [address], [place] [id number] Free T3on 07-12-2021 FT3 3.04 pg/mL Normal 2.00-4.40 [facility] [employer] Comment on above: Performed By: #### C RP, CK, TSH, FT4, FT3, ESR, CBCAD, BMP #### [facility] [address], [place] [id number] Free T4on 07-12-2021 Free T4 [Mass/Vol] 1.29 ng/dL Normal 0.80-1.80 [facility] rn [place] [employer] Comment on above: Performed By: #### C RP, CK, TSH, FT4, FT3, ESR, CBCAD, BMP #### [facility] [address], [place] [id number] RBC Sedimentation Rateon ESR (Bld) [Velocity] 10.00 mm/h Normal 0.00-30.00 [facility] [employer] Comment on above: Performed By: #### F T3, TSH, FT4 #### [facility] [address], [place] [id number] TSHon 07-12-2021 TSH 13.040 uIU/mL High 0.400-4.50 0 [facility] [employer] Comment on above: Performed By: #### C RP, CK, TSH, FT4, FT3, ESR, CBCAD, BMP #### [facility] [address], [place] [id number] JORGE FABIAN DIGITAL SCREEN SELF REFERRAL W [...] to the patient regarding the results. [employer] recommends annual mammograms for women 40 years and older. [employer] Phone: EXAMINATION: SCREENI NG DIGITAL BILATERAL MAMMOGRAM [...] suspicious microcalcification, or area of architectural distortion. [employer] Phone: [employer] Phone: T3, FreeOrdered By: Candy cheek on 06-15-2019 Free T3 [Mass/Vol] 2.83 pg/mL 2.02 - 4.43 pg/mL [employer] Phone: T4, FreeOrdered By: Candy Franco mmer on 06-15-2019 Thyroxine, Free 1.17 ng/dL 0.93 - 1.7 ng/dL [employer] Phone: TSH without ReflexOrdered By : Candy Gilbert on 06-15-2019 Interpretation and review of laboratory results Abnormal [employer] Phone: TSH Qn 35.69 m[IU]/L High [employer] Work Phone: Coding Summaryon 07-25-2017 Coding Summary CODING DATE: 018 [facility] STATUS: Home PAYOR: [employer] [...] Shahla Nguyen Date Saved: 07/25/2017 01:15 pm [facility] Provider Orderson 07-24-2017 Provider Orders [id number] [facility] XR Elbow Complete Lefton XR Elbow Complete [...] ETIOLOGY AND SIGNIFICANCE. FOLLOW-UP NEEDED.ROBBIE Ervin #: [id number]: 07/23/2017T: 07/23/2017 Final Dictated by: Alistair Lockett MD SDictated DT/TM: 07/23/17 6:10Signed (Electronic Signature): Alistair Lockett MD 07/23/17 10:51 aTechnologist: TL [facility] Vital Signs Date Time Vital Sign Value Performing Clinician Facility 03-11-2025 12:13-0400 Body temperature 97.2 [degF] Constantine Sanchez MD Work Phone: [facility] 03-11-2025 12:13-0400 Diastolic blood pressure 59 mm[Hg] [facility] 03-11-2025 12:13-0400 Systolic blood pressure 113 mm[Hg] Constant[facility] 03-11-2025 12:00-0400 Heart rate 55 /min Constantine Sanchez [facility] 03-11-2025 12:00-0400 Respiratory rate 13 /min Constantine Sanchez MD Work Phone: [facility] 03-11-2025 12:00-0400 SaO2% (BldA) [Mass fraction] 98 % Constantine Sanchez MD Work Phone: [facility] 03-11-2025 10:05-0400 Body height 162.6 cm Constantine Sanchez [facility] 03-11-2025 10:05-0400 Body mass index (BMI) [Ratio] 30.86 kg/m2 Constantine Sanchez MD Work Phone: [facility] 03-11-2025 10:05-0400 Body weight 81.56 kg Constantine Sanchez MD Work Phone: [facility] 12-31-2024 14:29-0400 Body height 162.6 cm Candy Gilbert PA Work Phone: [facility] 12-31-2024 14:29-0400 Body mass index (BMI) [Ratio] 30.9 kg/m2 Candy Hemmer PA Work Phone: [facility] 12-31-2024 14:29-0400 Body weight 81.65 kg Candy Hemmer PA Work Phone: [facility] 12-31-2024 14:29-0400 Diastolic blood pressure 78 mm[Hg] Candy Teresamer PA Work Phone: [facility] 12-31-2024 14:29-0400 Heart rate 65 /min Candy Hemmer PA Work Phone: [facility] 12-31-2024 14:29-0400 SaO2% (BldA) [Mass fraction] 97 % Candy Hemmer PA Work Phone: [facility] 12-31-2024 14:29-0400 Systolic blood pressure 118 mm[Hg] Candy Hemmer PA Work Phone: [facility] 11-20-2024 09:13-0400 Body height 152.4 cm Chana Hurtado MD Work Phone: [facility] 11-20-2024 09:13-0400 Body mass index (BMI) [Ratio] 35.78 kg/m2 Chana Hurtado MD Work Phone: [facility] 11-20-2024 09:13-0400 Body weight 83.1 kg Chana Hurtado MD Work Phone: [facility] 11-20-2024 09:13-0400 Diastolic blood pressure 81 mm[Hg] Chana Hurtado MD Work Phone: [facility] 11-20-2024 09:13-0400 Heart rate 51 /min Chana Hurtado MD Work Phone: [facility] 11-20-2024 09:13-0400 Respiratory rate 16 /min Chana Hurtado MD Work Phone: [facility] 11-20-2024 09:13-0400 Systolic blood pressure 135 mm[Hg] Chana Hurtado MD Work Phone: [facility] 10-14-2024 09:38-0400 Body height 162.6 cm Candy Hemmer PA Work Phone: [facility] 10-14-2024 09:38-0400 Body mass index (BMI) [Ratio] 31.34 kg/m2 Candy Hemmer PA Work Phone: [facility] 10-14-2024 09:38-0400 Body weight 82.83 kg Candy Hemmer PA Work Phone: [facility] 10-14-2024 09:38-0400 Diastolic blood pressure 72 mm[Hg] Candy Hemmer PA Work Phone: [facility] 10-14-2024 09:38-0400 Heart rate 54 /min Candy Hemmer PA Work Phone: [facility] 10-14-2024 09:38-0400 Respiratory rate 16 /min Candy Hemmer PA Work Phone: [facility] 10-14-2024 09:38-0400 SaO2% (BldA) [Mass fraction] 98 % Candy Hemmer PA Work Phone: [facility] 10-14-2024 09:38-0400 Systolic blood pressure 116 mm[Hg] Candy Hemmer PA Work Phone: [facility] 07-30-2024 15:05-0500 Body height 162.6 cm Candy Hemmer PA Work Phone: [facility] 07-30-2024 15:05-0500 Body mass index (BMI) [Ratio] 31.45 kg/m2 Candy Hemmer PA Work Phone: [facility] 07-30-2024 15:05-0500 Body weight 83.1 kg Candy Hemmer PA Work Phone: [facility] 07-30-2024 15:05-0500 Diastolic blood pressure 82 mm[Hg] Candy Hemmer PA Work Phone: [facility] 07-30-2024 15:05-0500 Heart rate 62 /min Candy Hemmer PA Work Phone: [facility] 07-30-2024 15:05-0500 Respiratory rate 16 /min Candy Hemmer PA Work Phone: [facility] 07-30-2024 15:05-0500 SaO2% (BldA) [Mass fraction] 97 % Candy Hemmer PA Work Phone: [facility] 07-30-2024 15:05-0500 Systolic blood pressure 112 mm[Hg] Candy Hemmer PA Work Phone: [facility] 03-31-2024 10:47-0400 Body height 162.6 cm Candy Hemmer PA Work Phone: [facility] 03-31-2024 10:47-0400 Body mass index (BMI) [Ratio] 31.31 kg/m2 Candy Hemmer PA Work Phone: [facility] 03-31-2024 10:47-0400 Body temperature 98.1 [degF] Candy Hemmer PA Work Phone: [facility] 03-31-2024 10:47-0400 Body weight 82.74 kg Candy Hemmer PA Work Phone: [facility] 03-31-2024 10:47-0400 Diastolic blood pressure 78 mm[Hg] Candy Hemmer PA Work Phone: [facility] 03-31-2024 10:47-0400 Heart rate 76 /min Candy Hemmer PA Work Phone: [facility] 03-31-2024 10:47-0400 Respiratory rate 16 /min Candy Hemmer PA Work Phone: [facility] 03-31-2024 10:47-0400 SaO2% (BldA) [Mass fraction] 98 % Candy Hemmer PA Work Phone: [facility] 03-31-2024 10:47-0400 Systolic blood pressure 129 mm[Hg] Candy Hemmer PA Work Phone: [facility] 08-15-2023 10:35-0500 Body mass index (BMI) [Ratio] 31.24 kg/m2 Candy Hemmer PA Work Phone: [facility] 08-15-2023 10:35-0500 Body weight 82.56 kg Candy Hemmer PA Work Phone: [facility] 08-15-2023 10:35-0500 Diastolic blood pressure 84 mm[Hg] Candy Hemmer PA Work Phone: [facility] 08-15-2023 10:35-0500 Heart rate 54 /min Candy Hemmer PA Work Phone: [facility] 08-15-2023 10:35-0500 Respiratory rate 16 /min Candy Hemmer PA Work Phone: [facility] 08-15-2023 10:35-0500 SaO2% (BldA) [Mass fraction] 99 % Candy Hemmer PA Work Phone: [facility] 08-15-2023 10:35-0500 Systolic blood pressure 132 mm[Hg] Candy Teresamer PA Work Phone: [facility] 02-02-2022 07:00-0400 Body temperature 98.2 [degF] Ino Brothers DO Work Phone: [facility] 02-02-2022 07:00-0400 Diastolic blood pressure 70 mm[Hg] Ino Cadenabaum DO Work Phone: [facility] 02-02-2022 07:00-0400 Heart rate 66 /min Ino Brothers DO Work Phone: [facility] 02-02-2022 07:00-0400 Respiratory rate 16 /min Ino Brothers DO Work Phone: [facility] 02-02-2022 07:00-0400 Systolic blood pressure 124 mm[Hg] Ino Brothers Work Phone: [facility] 02-02-2022 02:50-0400 SaO2% (BldA) [Mass fraction] 94 % Ino Zev DO Work Phone: [facility] 02-01-2022 06:23-0400 Body height 162.6 cm Ino Brothers Work Phone: [facility] 02-01-2022 06:23-0400 Body mass index (BMI) [Ratio] 34.16 kg/m2 Ino Brothers Work Phone: [facility] 02-01-2022 06:23-0400 Body weight 90.27 kg Ino Brothers DO [facility] [employer] 01-22-2022 12:11-0400 Body height 162.6 cm [facility] 2 [facility] [employer] 01-22-2022 12:11-0400 Body mass index (BMI) [Ratio] 34.16 kg/m2 [facility] [employer] 01-22-2022 12:11-0400 Body temperature 97.7 [degF] [facility] 2 [facility] [employer] 01-22-2022 12:11-0400 Body weight 90.27 kg [facility] 2 [facility] [employer] 01-22-2022 12:11-0400 Diastolic blood pressure 77 mm[Hg] Stcz 2 [facility] [employer] 01-22-2022 12:11-0400 Heart rate 63 /min [facility] 01-22-2022 12:11-0400 Respiratory rate 16 /min [facility] 2 [facility] [employer] 01-22-2022 12:11-0400 SaO2% (BldA) [Mass fraction] 100 % [facility] 2 [facility] 01-22-2022 12:11-0400 Systolic blood pressure 131 mm[Hg] [facility] 2 [facility] [employer] 09-29-2021 10:35-0400 Body temperature 97.5 [degF] Constantine Sanchez MD Work Phone: [employer] 09-29-2021 10:35-0400 Diastolic blood pressure 58 mm[Hg] Constantine Sanchez MD Work Phone: [employer] 09-29-2021 10:35-0400 Heart rate 58 /min Constantine Sanchez MD Work Phone: [employer] 09-29-2021 10:35-0400 Respiratory rate 12 /min Constantine Sanchez MD Work Phone: [employer] 09-29-2021 10:35-0400 SaO2% (BldA) [Mass fraction] 98 % Constantine Sanchez MD Work Phone: [employer] 09-29-2021 10:35-0400 Systolic blood pressure 92 mm[Hg] Constantine Sanchez MD Work Phone: [employer] 09-29-2021 07:46-0400 Body height 160 cm Constantine Sanchez MD Work Phone: [employer] 09-29-2021 07:46-0400 Body mass index (BMI) [Ratio] 34.37 kg/m2 Constantine Sanchez MD Work Phone: [employer] 09-29-2021 07:46-0400 Body weight 88 kg Constantine Sanchez MD Work Phone: [employer] 09-15-2021 10:28-0500 Body height 160 cm [facility] En[facility] Encounter Date Encounter Type Care Provider Facility Start: 03-11-2025 End: 03-16-2025 Clinisync Result Encounter Generic External Data Provider [facility] Unsolicited Start: 03-11-2025 End: 03-16-2025 Clinisync Result Encounter Generic External Data Provider [facility] External [facility] Unsolicited Start: 03-11-2025 End: 03-11-2025 ambulatory CANDY GILBERT [facility] Start: 03-11-2025 End: 03-11-2025 Subsequent hospital visit by physician Constantine Sanchez MD Work Phone: [facility] Comment on above: EE (eosinophilic eso phagitis); Diverticulosis of colon; Weight loss Start: 01-25-2025 End: 01-25-2025 Clinisync Result Encounter Candy PRUITT Work Phone: [facility] Unsolicited Start: 01-25-2025 End: 01-25-2025 Clinisync Result Encounter Candy PRUITT Work Phone: [facility] Unsolicited Start: 12-31-2024 End: 12-31-2024 Patient encounter status Candy PRUITT Work Phone: [facility] Work Phone: Start: 12-31-2024 End: 12-31-2024 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 Candy PRUITT Work Phone: [facility] Comment on above: Wellness examination (Primary Dx); Vitamin B-complex deficiency; Cervical radiculopathy; Median neuropathy of both upper extremities; Occipital neuralgia, unspecified laterality; Achenbach's syndrome; Other chronic pain; Sleep disorder due to a general medical condition, mixed type; Hiatal hernia; Frequent PVCs; Grade II diastolic dysfunction; Nonrheumatic mitral valve regurgitation; Nonrheumatic tricuspid valve regurgitation; Palpitation; PSVT (paroxysmal supraventricular tachycardia) (HCC); Polyp of colon, unspecified part of colon, unspecified type; Diverticulosis of colon; Eosinophilic esophagitis; Gastric mass; History of gastric ulcer; Irritable bowel syndrome with diarrhea; Schatzki's ring of distal esophagus; Gipsy-Walker grade 3 cystocele; Cystocele, midline; Enlarged uterus; Fibroids, submucosal; History of nephrolithiasis; Overflow incontinence; Cervical spondylosis without myelopathy; Fibromyalgia; Inflammatory polyarthropathy (HCC); Localized osteoarthritis of right knee; Primary osteoarthritis involving multiple joints; Spondylosis of lumbosacral 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thy; 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 or radiculopathy; Acquired hypothyroidism ; ESS (euthyroid sick syndrome); Wanda's disease ; Left ovarian cyst; Non morbid obesity due to excess calories; Vitamin D deficiency; Other specified disorders involving the immune mechanism, not elsewhere classified (HCC); Abdominal bloating; Bruises easily; Chronic fatigue; Elevated LDL cholesterol level ; Family history of breast cancer; H/O tubal ligation; Hypokalemia; Lipoprotein deficiency disorder ; S/P endometrial ablation; Sciatica, unspecified laterality; Seasonal allergic rhinitis due to pollen; Tubular adenoma; Vision abnormalities Start: 12-31-2024 End: 12-31-2024 ambulatory CANDY GILBERT Not Available Start: 12-31-2024 End: 12-31-2024 Bamboo flowsheet Candy PRUITT Work Phone: [facility] Start: 12-31-2024 End: 12-31-2024 Bamboo flowsheet Candy PRUITT Work Phone: [facility] Start: 12-10-2024 End: 12-10-2024 Clinisync Result Encounter Candy Tawana Ofelia PRUITT Work Phone: [facility] Unsolicited Start: 12-10-2024 End: 12-10-2024 Clinisync Result Encounter Candy Gilliam Ofelia PRUITT Work Phone: [facility] Unsolicited Start: 12-09-2024 End: 12-09-2024 Clinisync Result Encounter Candy Gilliam Ofelia PRUITT Work Phone: [facility] Unsolicited Start: 12-09-2024 End: 12-09-2024 Clinisync Result Encounter Candy Gilliam Ofelia PRUITT Work Phone: [facility] Unsolicited Start: 12-09-2024 End: 12-10-2024 Follow-up encounter Candy PRUITT Work Phone: [facility] Start: 11-24-2024 End: 11-24-2024 [facility] Start: 11-24-2024 End: 11-24-2024 Encounter for gynecological examination (general) (routine) without abnormal findings CANDY M [facility] Start: 11-24-2024 End: 11-24-2024 Subsequent hospital visit by physician Candy Gilbert PA-C Work Phone: [facility] Start: 11-20-2024 End: 11-20-2024 Office outpatient new 45 minutes Chana Hurtado MD Work Phone: [facility] A Department of [facility] Comment on above: Acquired hypothyroid ism (Primary Dx) Start: 11-20-2024 End: 12-16-2024 ambulatory CHANA HURTADO [facility] Start: 10-14-2024 End: 10-14-2024 Bamboo flowsheet Candy [...] adenoma Start: 10-14-2024 End: 10-14-2024 ambulatory CANDY GILBERT Not Available Start: 10-13-2024 End: 10-13-2024 ambulatory [facility] Start: 08-20-2024 ambulatory [facility] Facility:[facility] Start: 08-20-2024 End: 08-20-2024 Subsequent hospital visit by physician [facility] 3 (Istat/1.5t) Work Phone: [facility] Start: 08-04-2024 End: 08-04-2024 ambulatory [facility] Start: 07-30-2024 End: 07-30-2024 Office outpatient visit 25 minutes Candy PRUITT Work Phone: [facility] Comment on above: 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); Thoracic spine pain; Wanda's disease (CMS/HCC); Spondylosis of lumbosacral 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thy Start: 07-30-2024 End: 07-30-2024 ambulatory CANDY GILBERT Not Available Start: 07-30-2024 End: 07-30-2024 Bamboo flowsheet Candy PRUITT Work Phone: [facility] Start: 07-30-2024 End: 07-30-2024 Bamboo flowsheet Candy PRUITT Work Phone: [facility] Start: 07-11-2024 End: 01-04-2025 Clinisync Result Encounter Generic External Data Provider [facility] External Department Unsolicited Start: 07-11-2024 End: 07-11-2024 Clinisync Result Encounter Generic External Data Provider [facility] External Department Unsolicited Start: 06-24-2024 End: 06-24-2024 ambulatory [facility] Start: 05-20-2024 End: 05-20-2024 ambulatory [facility] Start: 04-24-2024 End: 04-26-2024 ambulatory SAMANTHA A BEAM [facility] Start: 04-24-2024 End: 04-26-2024 Subsequent hospital visit by physician [facility] Mammography Comment on above: Encounter for screen ing mammogram for malignant neoplasm of breast Start: 03-31-2024 End: 03-31-2024 Bamboo flowsheet Candy Gilbert PA Work Phone: [facility] Start: 03-31-2024 End: 03-31-2024 Bamboo flowsheet Candy Gilbert PA Work Phone: [facility] Start: 03-31-2024 End: 03-31-2024 ambulatory CANDY GILBERT Not Available Start: 03-31-2024 End: 03-31-2024 Office outpatient visit 25 minutes Candy Gilbert PA Work Phone: [facility] Comment on above: Palpitation (Primary Dx); Shortness of breath; Acquired hypothyroidism (CMS/HCC) Start: 02-12-2024 End: 02-12-2024 ambulatory ALEJANDRO Tawana LIN Not Available Start: 08-15-2023 Bamboo flowsheet Candy Farr r PA Work Phone: [facility] Start: 08-15-2023 Bamboo flowsheet Candy Farr r PA Work Phone: [facility] Start: 08-15-2023 End: 08-15-2023 Patient encounter status Candy Gilbert PA Work Phone: [facility] Work Phone: [...] with diarrhea; Schatzki's ring of distal esophagus; Gipsy-Walker grade 3 cystocele; Cystocele, midline; Enlarged uterus; [...] Subsequent hospital visit by physician Austin [facility]son [facility] Mammography Comment on above: Post-menopausal Start: 02-01-2022 End: 02-02-2022 Evaluation and management of inpatient Ino Brothers DO Work Phone: [facility] Comment on above: Cystocele, unspecifi ed (CODE) Start: 01-22-2022 End: 01-24-2022 Subsequent hospital visit by physician Austin Xr Room 4 [facility] Radiology Comment on above: Arrived Start: 01-22-2022 End: 01-26-2022 Patient encounter status St[facility] 2 [facility] Pre-Admit Testing Start: 01-22-2022 End: 01-26-2022 Subsequent hospital visit by physician Mamta Jeronimo Rm 2 [facility] Pre-Admit Testing Comment on above: Pre-op testing Start: 12-27-2021 End: 12-27-2021 Subsequent hospital visit by physician Candy Gilbert Work Phone: [facility] Laboratory Comment on above: Overflow incontinenc e Start: 12-25-2021 End: 12-27-2021 Subsequent hospital visit by physician [facility] Mammo Rm 119 [facility] Mammography Comment on above: Encounter for screen ing mammogram for malignant neoplasm of breast Start: 09-29-2021 End: 09-29-2021 Subsequent hospital visit by physician Constantine Sanchez MD Work Phone: [facility] Start: 09-25-2021 End: 09-25-2021 Patient encounter status [facility] Schedule [facility] Covid Scre ening Start: 09-25-2021 End: 09-25-2021 Subsequent hospital visit by physician Mamta Covid Screening Schedule [facility] Covid Screening Comment on above: Pre-op testing (Prim jane Dx) Start: 09-15-2021 End: 09-19-2021 Subsequent hospital visit by physician Mamta Jeronimo Rm 3 [facility] Pre-Admit Testing Start: 12-14-2020 End: 12-16-2020 Subsequent hospital visit by physician [place] [facility] Mammo Rm 119 [facility] Mammography Comment on above: Visit for screening mammogram Start: 06-15-2019 End: 06-15-2019 Subsequent hospital visit by physician Candy Gilbert Work Phone: Laboratory Start: 07-23-2017 End: 07-23-2017 Ambulatory CANDY GILBERT Facility:[facility] Procedures Date Procedure Procedure Detail Performing Clinician Start: 03-11-[address] [facility] Generic External Data Provider Start: 01-25-2025 TBH CREATININE Candy PRUITT Work Phone: Start: 12-10-2024 US RIGHT UPPER QUADRANT Candy PRUITT Work Phone: Start: 12-09-2024 ALL CBC WITH AUTO DIFF Candy PRUITT Work Phone: Start: 11-24-2024 Microscopic observat ion [Identifier] in Cervix by Cyto stain Candy PRUITT Work Phone: Start: 08-20-2024 Cardiac mri w/wo con trast & further seq [facility] Provider Start: 07-11-2024 ALL BASIC METABOLIC PANEL Generic External Data Provider Start: 04-24-2024 Mammography Generic Pr ovider Start: 04-12-2023 Mammography Candy evans PA Work Phone: Start: 11-21-2022 Microscopic observat ion [...] [Identifier] in Cervix by Cyto stain Candy Gilbert Work Phone: Start: 09-29-2021 Colonoscopy Constantine toscano MD Work Phone: Start: 12-14-2020 Screening mammograph y bi 2-view breast inc cad Rose Brothers DO Work Phone: Start: 06-15-2019 Assay of free thyroxine Candy Gilbert Work Phone: Start: 07-28-2018 Microscopic observat ion [Identifier] in Cervix by Cyto stain [facility] Start: 01-20-2018 Colonoscopy [facility] 3 Start: 11-17-2015 H/O: tubal ligation H/O tubal ligati on Candy Gilbert Work Phone: H/O: tubal ligation H/O tubal ligation Kervin PRUITT Work Phone: H/O: tubal ligation H/O tubal ligation Kervin PRUITT Work Phone: Plan of Treatment Date Care Activity Detail Author Start: 2037 RSV Vaccine (1 - 1-dose 75+ series) RSV Vaccine (1 - 1-dose 75+ series) [facility] Start: 09-30-2031 Screening for malignant neoplasm of colon [facility] Start: 11-24-2029 Screening for malignant neoplasm of cervix [facility] Start: 01-21-2028 Screening for malignant neoplasm of colon [facility] Start: 11-25-2027 Screening for malignant neoplasm of cervix Pap Smear [facility] Start: 11-22-2027 Screening for malignant neoplasm of cervix [facility] Start: 04-24-2026 Screening for malignant neoplasm of breast Breast cancer screen [facility] Start: 11-24-2025 Depression Screen Depression Screen [facility] Start: 11-24-2025 End: 11-24-2025 Patient encounter procedure 11/24/2025 9:00 AM EDT Off ice Visit [facility] Obstetrics & Gynecology [address] [place] [phone] Samantha Weaver APRN - CNP [address] [place] [address] annual [facility] Obstetrics & Gynecology Comment on above: annual Start: 11-21-2025 Screening for malignant neoplasm of cervix Pap Smear [facility] Start: 09-05-2025 Lipid panel Lipids [facility] Start: 06-21-2025 End: 06-21-2025 Patient encounter procedure [facility] Start: 04-26-2025 End: 04-26-2025 Patient encounter procedure 04/26/2025 2:45 PM EDT Appointment [facility] Mammography [address] [place] [address] Epic sched w/ Pt [facility] Mammography Comment on above: Epic sched w/ Pt Start: 04-24-2025 Screening for malignant neoplasm of breast [facility] Start: 04-12-2025 Screening for malignant neoplasm of breast Breast cancer screen [facility] Start: 04-08-2025 End: 04-08-2025 Admission to same day surgery center 04/08/2025 12:00 PM EDT - 04/08/2025 12:30 PM EDT [place] [facility] [address] [place] [address] Constantine Sanchez MD [address] [place] [address] [id number] ESOPHAGOGASTRODUODENOSCOPY BIOPSY [facility] Comment on above: ESOPHAGOGASTRODUODENOSCOPY BIOPSY Start: 04-08-2025 End: 04-08-2025 Egd transoral biopsy single/multiple ESOPHAGOGASTRODUODENOSCOPY BIOPSY EE (eosinophilic esophagitis) Diverticulosis of colon Weight loss Gastric mass GERD (gastroesophageal reflux disease) 04/08/2025 12:[address] [facility] Start: 04-08-2025 Subsequent hospital visit by physician 04/08/2025 12:00 PM EDT Hospital Encounter [facility] [address] [place] [address] Constantine Sanchez MD [address] [place] [id number] [facility] Start: 03-08-2025 COVID-19 Vaccine ( season) COVID-19 Vaccine ( season) [facility] Start: 03-08-2025 Influenza vaccination [facility] Start: 02-05-2025 Influenza vaccination Flu vaccine (#1) [facility] Start: 01-22-2025 Diabetes Screening Diabetes Screening [facility] Start: 12-31-2024 End: 12-31-2024 Patient encounter procedure 12/31/2024 2:30 PM EDT Off ice Visit [facility] [address] [facility] [address] [place] [phone] Candy Gilbert PA [address] [facility] [address] [place] [address] Arrived [facility] Comment on above: Arrived Start: 11-24-2024 Depression Screen Depression Screen [facility] Start: 11-24-2024 End: 11-24-2024 Patient encounter procedure 11/24/2024 9:00 AM EDT Off ice Visit [facility] Obstetrics & Gynecology [address] [place] [phone] Samantha Weaver APRN - CNP [address] [place] [address] annual [facility] Obstetrics & Gynecology Comment on above: annual Start: 11-23-2024 Screening for malignant neoplasm of cervix [facility] Start: 10-14-2024 End: 10-14-2025 Alpha fetoprotein, L3 percent Alpha fetoprotein, L3 pe rcent Lab Routine Abnormal finding on imaging of liver Hepatic lesion Expected: 10/14/2024 (Approximate), Expires: 10/14/2025 [facility] Comment on above: Expected: 10/14/2024 (Approximate), Expi res: 10/14/2025 Start: 10-14-2024 End: 10-14-2025 Cobalamin (Vitamin B12) [Mass/volume] in Serum or Plasma Vitamin B12 Lab Routine Vitamin B-complex deficiency Expected: 10/14/2024 (Approximate), Expires: 10/14/2025 [facility] [employer] Comment on above: Expected: 10/14/2024 (Approximate), Expi res: 10/14/2025 Start: 10-14-2024 End: 10-14-2025 Creatinine [Mass/volume] in Serum or Plasma Creatinine, Serum Lab Routine Abnormal finding on imaging of liver Hepatic lesion Hypokalemia Expected: 10/14/2024 (Approximate), Expires: 10/14/2025 [facility] Comment on above: Expected: 10/14/2024 (Approximate), Expi res: 10/14/2025 Start: 10-14-2024 End: 10-14-2025 CT Abdomen and Pelvis W contrast IV CT abdomen pelvis w IV contrast Imaging Routine Abnormal finding on imaging of liver Hepatic lesion Expected: 10/14/2024, Expires: 10/14/2025 [facility] Work Phone: Comment on above: Expected: 10/14/2024, Expires: Start: 10-14-2024 End: 10-14-2024 Patient encounter procedure 10/14/2024 9:30 AM EDT Off ice Visit [facility] [address] [place] [phone] Candy Gilbert PA [address] [place] [address] Arrived [facility] Comment on above: Arrived Start: 10-01-2024 Administration of varicella zoster vaccine Zoster (Shingles) Vaccine (2 of 3) [facility] Start: 09-29-2024 Screening for malignant neoplasm of colon [facility] Start: 07-30-2024 End: 07-30-2024 Patient encounter procedure 07/30/2024 3:00 PM EST Off ice Visit [facility] [address] [place] [phone] Candy Gilbert PA [address] [place] [address] Arrived [facility] Comment on above: Arrived Start: 07-30-2024 End: 07-30-2025 XR Thoracic spine 4 Views XR thoracic spine complete 4 + views Imaging Routine 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 or radiculopathy Thoracic spine pain Expected: 07/30/2024, Expires: 07/30/2025 [facility] Work Phone: Comment on above: Expected: 07/30/2024, Expires: Start: 04-12-2024 Screening for malignant neoplasm of breast Mammogram [facility] Start: 03-31-2024 End: 03-31-2025 Holter monitor study Holter monitor Imaging Routi ne Palpitation Shortness of breath Expected: 03/31/2024 (Approximate), Expires: 03/31/2025 [facility] Work Phone: Comment on above: Expected: 03/31/2024 (Approximate), Expi res: 03/31/2025 Start: 03-08-2024 COVID-19 Vaccine () COVID-19 Vaccine ( season) [facility] Start: 03-08-2024 Covid-19 Vaccine ( season) Covid-19 Vaccine () [facility] Start: 03-08-2024 Influenza vaccination Influenza Vaccine (#1) [facility] Start: 02-13-2024 End: 02-13-2024 Patient encounter procedure 02/13/2024 10:00 AM EDT Of fice Visit [facility] [address] [facility] [address] [place] [address] Candy Gilbert PA [address] [facility] [address] [place] [address] [facility] Start: 02-06-2024 Influenza vaccination Flu vaccine (#1) [facility] Start: 01-22-2024 DTaP,Tdap and Td Vaccines (2 - Td or Tdap) DTaP,Tdap and Td Vaccines (2 - Td or Tdap) [facility] Start: 01-22-2024 DTaP/Tdap/Td vaccine (2 - Td or Tdap) DTaP/Tdap/Td vaccine (2 - Td or Tdap) [facility] Start: 01-22-2024 Urine microalbumin profile DTaP,Tdap,Td Vaccine (2 - T d or Tdap) [facility] Start: 12-26-2023 Screening for malignant neoplasm of breast Breast cancer screen [facility] Start: 09-26-2023 End: 08-15-2024 Triiodothyronine (T3) Free [Mass/volume] in Serum or Plasma T3, free Lab Routine Acquired hypothyroidism (CMS/HCC) 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) Expected: 09/26/2023 (Approximate), Expires: 08/15/2024 [facility] Comment on above: Expected: 09/26/2023 (Approximate), Expi res: 08/15/2024 Start: 09-19-2023 End: 08-15-2024 Thyrotropin [Units/volume] in Serum or Plasma TSH Lab Routine Acquired hypothyroidism (CMS/HCC) 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) Expected: 09/19/2023 (Approximate), Expires: 08/15/2024 [facility] Comment on above: Expected: 09/19/2023 (Approximate), Expi res: 08/15/2024 Start: 09-19-2023 End: 08-15-2024 Thyroxine (T4) free [Mass/volume] in Serum or Plasma T4, free Lab Routine Acquired hypothyroidism (CMS/HCC) 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) Expected: 09/19/2023 (Approximate), Expires: 08/15/2024 [facility] Comment on above: Expected: 09/19/2023 (Approximate), Expi res: 08/15/2024 Start: 08-15-2023 End: 08-15-2024 25-hydroxyvitamin D3 [Mass/volume] in Serum or Plasma Vitamin D 25 hydroxy Lab Routine Wellness examination Vitamin D deficiency Expected: 08/15/2023 (Approximate), Expires: 08/15/2024 [facility] Comment on above: Expected: 08/15/2023 (Approximate), Expi res: 08/15/2024 Start: 08-15-2023 End: 08-15-2024 CBC W Auto Differential panel - Blood CBC and differential Lab Routine Wellness examination Other specified disorders involving the immune mechanism, 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) Bruises easily Chronic fatigue Expected: 08/15/2023 (Approximate), Expires: 08/15/2024 [facility] Work Phone: Comment on above: Expected: 08/15/2023 (Approximate), Expi res: 08/15/2024 Start: 08-15-2023 End: 08-15-2024 Cobalamin (Vitamin B12) [Mass/volume] in Serum or Plasma Vitamin B12 Lab Routine Wellness examination Vitamin B-complex deficiency Expected: 08/15/2023 (Approximate), Expires: 08/15/2024 [facility] Comment on above: Expected: 08/15/2023 (Approximate), Expi res: 08/15/2024 Start: 08-15-2023 End: 08-15-2024 Comprehensive metabolic 2000 panel - Serum or Plasma Comprehensive metabolic panel Lab Routine Wellness examination Chronic fatigue Hypokalemia Lipoprotein deficiency disorder (CMS/HCC) Expected: 08/15/2023 (Approximate), Expires: 08/15/2024 [facility] Comment on above: Expected: 08/15/2023 (Approximate), Expi res: 08/15/2024 Start: 08-15-2023 End: 08-15-2024 Lipid 1996 panel - Serum or Plasma Lipid panel Lab Routine Wellness examination Lipoprotein deficiency disorder (CMS/HCC) Expected: 08/15/2023 (Approximate), Expires: 08/15/2024 NOMS [...] 07-28-2023 Screening for malignant neoplasm of cervix [facility] Start: 04-23-2023 Adult BMI Screening Adult BMI Screening [facility] Start: 03-08-2023 Influenza vaccination Influenza Vaccine (#1) [facility] Start: 12-14-2022 Screening for malignant neoplasm of breast Breast cancer screen [facility] Start: 2022 Respiratory Syncytial Virus (RSV) or age 60 yrs+ (1 - 1-dose 60+ series) Respiratory Syncytial Virus (RSV) or age 60 yrs+ (1 - 1-dose 60+ series) [facility] Start: 2022 Respiratory Syncytial Virus (RSV) or age 60 yrs+ (1 - Risk 60-74 years 1-dose series) Respiratory Syncytial Virus (RSV) or age 60 yrs+ (1 - Risk 60-74 years 1-dose series) [facility] Start: 07-24-2022 End: 07-24-2022 Patient encounter procedure 07/24/2022 Office Visit Obstetrics and Gynecology [facility], [address] [place] [id number] [facility] Start: 06-22-2022 End: 06-22-2022 Patient encounter procedure 06/22/2022 Office Visit Urology Samy Resendez MD [address] [place] [address] [facility] Start: 03-08-2022 Influenza vaccination [facility] Start: 02-20-2022 End: 02-20-2022 Patient encounter procedure 02/20/2022 Office Visit Obstetrics and Gynecology [facility], [address] [place] [id number] [facility] Obstetrics & Gynecology Start: 02-01-2022 End: 02-01-2022 Admission to same day surgery center 02/01/2022 Surgery IP Unit Ino Brothers DO [address] [place] [id number] VAGINAL ANTERIOR REPAIR [facility] Comment on above: VAGINAL ANTERIOR REPAIR Start: 02-01-2022 End: 02-01-2022 Anterior colporraphy rpr cystocele w/cysto VAGINAL ANTERIOR REPAIR Cystocele, unspecified (CODE) 02/01/2022 8:00 AM EDT [facility] Start: 02-01-2022 Subsequent hospital visit by physician 02/01/2022 Hospital Encounter IP Unit Ino Brothers DO [address], [address] [place], [place] [id number] [facility] Start: 12-29-2021 End: 12-29-2021 Patient encounter procedure 12/29/2021 Office Visit Urology Samy Resendez MD [address] [place], [place] [id number] [facility] Start: 09-29-2021 End: 09-29-2021 Admission to same day surgery center 09/29/2021 Surgery Endoscopy Constantine Sanchez MD [facility] [facility], [address] [place] [address] EGD [facility] Comment on above: EGD Start: 09-29-2021 End: 09-29-2021 Colonoscopy flx dx w/collj spec when pfrmd [facility] Start: 09-29-2021 End: 09-29-2021 Esophagogastroduodenoscopy transoral diagnostic [facility] Start: 09-29-2021 Subsequent hospital visit by physician 09/29/2021 Hospital [place] [address] [place] [address], [address] [place], [place] [id number] [facility] Start: 09-25-2021 End: 09-22-2022 COVID-19 [facility] Work Phone: Comment on above: Expected: 09/25/2021, Expires: 3 Once for 1 Occurrenc es starting 09/25/2021 until 09/25/2021 Start: 09-25-2021 End: 09-25-2021 Patient encounter procedure 09/25/2021 Appointment Lab [facility] Start: 07-28-2021 Screening for malignant neoplasm of cervix [facility] Start: 03-08-2021 [facility]: 01-20-2021 Colon cancer screen colonoscopy Colon cancer screen colonoscopy [facility] [employer] Phone: Start: 01-20-2021 Screening for malignant neoplasm of colon [facility] Start: 08-11-2020 Breast cancer screen Breast cancer screen [facility] [employer] Phone: Start: 06-15-2020 Thyroid stimulating hormone measurement [facility] Start: 01-15-2020 TSH testing TSH testing [facility] [employer] Phone: Start: 07-28-2019 Cervical cancer screen Cervical cancer screen [facility] Phone: Start: 07-28-2019 Screening for malignant neoplasm of cervix Cervical cancer screen [facility] Phone: Start: 03-08-2019 Influenza vaccination Flu vaccine (#1) [employer] Phone: Start: 01-20-2019 Screening for malignant neoplasm of colon [facility] Start: 11-16-2018 Diabetes screen Diabetes screen [facility] Start: 2012 Pneumococcal 50+ years Vaccine (1 of 1 - PCV) Pneumococcal 50+ years Vaccine (1 of 1 - PCV) [facility] Start: 2012 Pneumococcal Vaccine: 50+ (1 of 1 - PCV) Pneumococcal Vaccine: 50+ (1 of 1 - PCV) [facility] Start: 2012 Shingles Vaccine (1 of 2) Shingles Vaccine (1 of 2) [facility] Start: 2012 Shingrix Vaccine (1 of 2) Shingrix Vaccine (1 of 2) [facility] Start: 10-29-2007 Lipid panel Lipid Screening [facility] Start: 10-29-2007 Screening for malignant neoplasm of colon [facility] Start: 2002 Lipid panel [facility] Start: 2002 Lipid screen [facility] Start: 1981 DTaP/Tdap/Td vaccine (1 - Tdap) DTaP/Tdap/Td vaccine (1 - Tdap) [employer] Phone: Start: 1980 Adult BMI Follow Up Plan Adult BMI Follow Up Plan [facility] Start: 1980 Anxiety Screening Anxiety Screening [facility] Start: 1980 Depression Screening Depression Screening [facility] Start: 1980 Hepatitis C screening Hepatitis C Screening [facility] Start: 1980 HIV screening HIV Screening [facility] Start: 1974 COVID-19 Vaccine (1) COVID-19 Vaccine (1) [employer] Phone: Start: 1974 Depression Screen Depression Screen [facility] Start: 1974 Depression Screening Depression Screening [facility] Start: 1974 Tobacco Screening Tobacco Screening [facility] Start: 1973 DTaP/Tdap/Td vaccine (1 - Tdap) DTaP/Tdap/Td vaccine (1 - Tdap) [employer] Phone: Start: 10-29-1967 COVID-19 Vaccine (1) COVID-19 Vaccine (1) [facility] Start: 04-29-1963 COVID-19 Vaccine (#1) COVID-19 Vaccine (#1) [facility] [employer] Start: 1962 Screening for malignant neoplasm of colon [facility] 25-hydroxyvitamin D3 [Mass/volume] in Serum or Plasma Vitamin D 25 hydroxy Total Lab Routine Vitamin D deficiency Ordered: 10/14/2024 [facility] Comment on above: Ordered: 10/14/2024 End: 03-12-2025 Blood glucose - POCT Blood glucose - POCT Point o f Care Testing Routine One Time for 1 Occurrences starting 03/12/2025 until 03/12/2025 [employer] Comment on above: One Time for 1 Occurrences starting 11/2024 until 03/12/2025 CBC W Auto Different ial panel - Blood CBC and differential Lab Routine Vitamin B-complex deficiency Elevated LDL cholesterol level (CMS/HCC) PSVT (paroxysmal supraventricular tachycardia) (CMS/HCC) Ordered: 10/14/2024 [facility] Comment on above: Ordered: 10/14/2024 Comprehensive metabo lic 2000 panel - Serum or Plasma Comprehensive metabolic panel Lab Routine Abnormal finding on imaging of liver Hepatic lesion Hypokalemia Elevated LDL cholesterol level (CMS/HCC) PSVT (paroxysmal supraventricular tachycardia) (CMS/HCC) Ordered: 10/14/2024 [facility] Comment on above: Ordered: 10/14/2024 End: 04-24-2024 DBT Breast - bilateral screening [employer] Comment on above: 1 Occurrences starting 04/24/2024 until 04/24/2024 End: 09-29-2021 INITIATE PACU OXYGEN THERAPY PROTOCOL Initiate PACU Oxygen Therapy Protocol Respiratory Care Routine Continuous until discontinued starting 09/29/2021 [employer] Phone: Comment on above: Continuous until discontinued starting 0 09/29/2021 End: 02-01-2022 INITIATE PACU OXYGEN THERAPY PROTOCOL Initiate PACU Oxygen Therapy Protocol Respiratory Care Routine Continuous until discontinued starting 02/01/2022 [employer] Phone: Comment on above: Continuous until discontinued starting 0 02/01/2022 Lipid 1996 panel - S nell or Plasma Lipid panel Lab Routine Elevated LDL cholesterol level (CMS/HCC) PSVT (paroxysmal supraventricular tachycardia) (CMS/HCC) Ordered: 10/14/2024 [employer] Comment on above: Ordered: 10/14/2024 Oxygen therapy [Mini mum Data Set] Initiate Oxygen Therapy Protocol Respiratory Care Routine As Needed until discontinued starting 09/29/2021 [employer] Phone: Comment on above: As Needed until discontinued starting Oxygen therapy [Mini mum Data Set] Initiate Oxygen Therapy Protocol Respiratory Care Routine As Needed until discontinued starting 02/01/2022 [employer] Phone: Comment on above: As Needed until discontinued starting Oxygen therapy [Mini mum Data Set] Initiate Oxygen Therapy Protocol Respiratory Care Routine As Needed until discontinued starting 03/11/2025 [email or web address] Phone: Comment on above: As Needed until discontinued starting Pathology study Surgical Patholo gy Lab Routine EE (eosinophilic esophagitis) Diverticulosis of colon Weight loss Release Upon Ordering for 1 Occurrences starting 03/11/2025 [employer] Comment on above: Release Upon Ordering for 1 Occurrences starting 03/11/2025 Surgical Pathology Surgical Path ology Lab Routine Release Upon Ordering for 1 Occurrences starting 09/29/2021 [employer] Phone: Comment on above: Release Upon Ordering for 1 Occurrences starting 09/29/2021 Surgical Pathology Surgical Path ology Lab Routine Cystocele, unspecified (CODE) Release Upon Ordering for 1 Occurrences starting 02/01/2022 [employer] Phone: Comment on above: Release Upon Ordering for 1 Occurrences starting 02/01/2022 End: 02-01-2022 SURGICAL PATHOLOGY REPORT SURGICAL PATHOLOGY REPORT La b Routine Once for 1 Occurrences starting 02/01/2022 until 02/01/2022 [employer] Phone: Comment on above: Once for 1 Occurrences starting 02/02/20 22 until 02/01/2022 End: 06-15-2019 Thyroid Stimulating Receptor Antibody Thyroid Stimulating Receptor Antibody Lab Routine Once for 1 Occurrences starting 06/15/2019 until 06/15/2019 [employer] Phone: Comment on above: Once for 1 Occurrences starting 06/15/20 19 until 06/15/2019 Thyroid Stimulating Receptor Antibody Thyroid Stimulating Receptor Antibody Lab Routine 06/15/2019 11:37 AM EST [employer] Phone: End: 11-20-2025 Thyrotropin [Units/volume] in Serum or Plasma TSH Lab Routine Acquired hypothyroidism 6 weeks for 6 Occurrences starting 11/20/2024 until 11/20/2025 [employer] Comment on above: 6 weeks for 6 Occurrences starting 11/20 until 11/20/2025 End: 11-20-2025 Thyroxine (T4) free [Mass/volume] in Serum or Plasma T4, free Lab Routine Acquired hypothyroidism 6 weeks for 6 Occurrences starting 11/20/2024 until 11/20/2025 [employer] Comment on above: 6 weeks for 6 Occurrences starting 11/20 until 11/20/2025 End: 11-20-2025 Triiodothyronine (T3) Free [Mass/volume] in Serum or Plasma T3, free Lab Routine Acquired hypothyroidism 6 weeks for 6 Occurrences starting 11/20/2024 until 11/20/2025 [employer] Work Phone: Comment on above: 6 weeks for 6 Occurrences starting 11/20 until 11/20/2025 TSH W/REFLEX TO FT4 TSH W/REFLEX TO FT4 Lab Routine Acquired hypothyroidism ([facility]/HCC) Ordered: 10/14/2024 [facility] Comment on above: Ordered: 10/14/2024 End: 03-12-2025 Urine , POCT Urine , POCT Point of Care Testing Routine One Time for 1 Occurrences starting 03/12/2025 until 03/12/2025 [employer] Comment on above: One Time for 1 Occurrences starting 11/2024 until 03/12/2025 Immunizations Immunization Date Immunization Notes Care Provider [facility] 08-06-2024 zoster vaccine, unspecified formulation Chana Hurtado MD Work Phone: [facility] 06-25-2024 influenza virus vaccine, unspecified formulation Chana Hurtado MD Work Phone: [facility] 01-21-2014 tetanus toxoid, redu sukhdev diphtheria toxoid, and acellular pertussis vaccine, adsorbed Candy Hemmer Work Phone: [facility] [employer] Work Phone: Payers Date Payer Category Payer Unknown [id number] 2018 [facility] [id number] 2018 [facility] Managed Care - Other ANTHEM [id number] 2018 Unknown BCBS BCBS xxxxxx [id number] 2018-Present [phone] [address] [place] [address] [id number] 2018 Unknown [id number] 2016 Unknown [id number] 2016 Unknown BC[place] - [place] P PO xxxxxxxxxxxxxxx 2016-Present [address] [place] [address] xxxxxxxxxxxxxxx [id number] 1962 Unknown [id number] 1962 Unknown [id number] 1962 Unknown [id number] 1962 Unknown [id number] 1962 Unknown [id number] 1962 Unknown [id number] 1962 Unknown [id number] 1962 Unknown [id number] 1962 Unknown [id number] 1962 Unknown [id number] Social History Date Type Detail Facility Start: 12-14-2020 End: 01-01-2023 Tobacco smoking status NHIS Never smoker [employer] Phone: Start: 12-14-2020 End: 01-01-2023 Tobacco use and exposure Never used [employer] Start: 12-14-2020 End: 11-20-2024 Alcohol intake Current non-drinker of alcohol (finding) [employer] Phone: Start: 12-14-2020 End: 12-19-2022 Alcohol intake [facility] Start: 1960 Sex Assigned At Not on file [employer] Phone: Start: 08-16-2021 End: 02-01-2022 Exposure to SARS-CoV-2 (event) Not sure [employer] Phone: Start: 07-10-2023 End: 12-31-2024 Alcohol intake Ex-drinker (finding) [facility] Start: 12-19-2022 End: 10-14-2024 Humiliation, Afraid, Rape, and Kick questionnaire [HARK] [facility] Within the last year , have you been afraid of your partner or ex-partner? Patient refused [facility] Are you now , , , , never or living with a partner? [facility] Start: 02-08-2023 Alcohol Comment Caffeine intake: coffeee [facility] Start: 04-24-2024 End: 03-11-2025 Alcoholic beverage intake Lifetime non-drinker (finding) Mele Portillo [facility] Start: 11-21-2022 Tobacco Comment I have answered this countless times. [facility] Start: 12-21-2021 Gender identity Identifies as female gender (finding) [facility] Tobacco smoking stat [facility] Tobacco smoking consumption unknown [facility] Do you belong to any clubs or organizations such as catholic groups, unions, fraternal or athletic groups, or school groups? Yes [facility] How often to you hav e a drink containing alcohol? Never [facility] Do you feel stress - tense, restless, nervous, or anxious, or unable to sleep at night because your mind is troubled all the time - these days [OSQ] Not at all [facility] Start: 08-17-2012 End: 02-10-2015 Sex Female (finding) [facility] Goals Date Patient Goal Desired Activity /State Personal health goal Comment on above: Formatting of this n ote might be different from the original. Evaluation of progress towards goal: Patient plans to discharge home with self care and support of spouse. - Shahla Valentine RN 11/30/17 1:39 PM Clinical Notes 09-15-2021 to 03-11-2025 Discharge InstructionsSONAL Betts - 12/31/2024 2:30 PM EDTTelephone Encounter - SONAL Betts - 12/10/2024 8:29 AM EDTTelephone Encounter - SONAL Betts - 12/10/2024 8:29 AM EDT Note Date & Type Note Facility 03-11-2025 Hospital Discharge instructions Sandrita Betancourt RN - 03/11/2025 11:48 AM EDT Images from the original note were not included. Upper GI Endoscopy: What to Expect at Home Your Recovery After you have an endoscopy, you will stay at the hospital or clinic for 1 to 2 hours. This will allow the medicine to wear off. You will be able to go home after your doctor or nurse checks to make sure you are not having any problems. You may have a sore throat for a day or two after the test. This care sheet gives you a general idea about what to expect after the test. How can you care for yourself at home? Activity Rest as much as you need to after you go home. You should be able to go back to your usual activities the day after the test. Diet Follow your doctor's directions for eating after the test. Drink plenty of fluids (unless your doctor has told you not to). Follow-up care is a hunt part of your treatment and safety. Be sure to make and go to all appointments, and call your doctor if you are having problems. It's also a good idea to know your test results and keep a list of the medicines you take. When should you call for help? Call 911 anytime you think you may need emergency care. For example, call if: You passed out (lost consciousness). You cough up blood. You vomit blood or what looks like coffee grounds. You pass maroon or very bloody stools. Call your doctor now or seek immediate medical care if: You have trouble swallowing. You have belly pain. Your stools are black and tarlike or have streaks of blood. You are sick to your stomach or cannot keep fluids down. Watch closely for changes in your health, and be sure to contact your doctor if: Your throat still hurts after a day or two. You do not get better as expected. Where can you learn more? Go to [email or web address] and sign in to your [employer] account. Enter J454 in the Search Health Information box to learn more about Upper GI Endoscopy: What to Expect at Home. If you do not have an account, please click on the Sign Up Now link. [employer]. Care instructions adapted under license by [facility]. This care instruction is for use with your licensed healthcare professional. If you have questions about a medical condition or this instruction, always ask your healthcare professional. [employer] disclaims any warranty or liability for your use of this information. Content Version: 9.9.634655; Last Revised: August 27, 2012 documented in this encounter [facility] 12-31-2024 History of Present illness Narrative Images from the original note were not included. Subjective Patient ID: Chester Negro is a 64 y.o. female who presents for Annual Exam. Pt is getting scope in April for her stomach. Also wishes to discuss B12 injections, states her insurance will not cover it. Can get a snap feeling inside her fingers, recently the left pinky finger and then it bruises. It is random. States it starts with an intense itching. Can happen to any of her fingers. Tender for a few hours after it happens then the pain stops and the bruising naturally goes away in time. Current Outpatient Medications on File Prior to [...] for muscle spasms 90 tablet 3 Biotin 1000 MCG chewable tablet Chew cholecalciferol (D3-5) 5,000 Units tablet Take 1 tablet by mouth in the morning. ELDERBERRY PO Take 1 tablet by mouth in the morning. levothyroxine (Synthroid, Levoxyl) 50 MCG tablet Take 50 mcg by mouth in the morning. Menaquinone-7 40 MCG tablet Take by mouth metoprolol tartrate (Lopressor) 25 MG tablet Take 25 mg by mouth in the morning and 25 mg before bedtime. thyroid ([place]) 60 MG tablet Take 60 mg by mouth Daily [DISCONTINUED] levothyroxine (Synthroid, Levoxyl) 150 MCG tablet Take 1 tablet (150 mcg) by mouth in the morning. Take on an empty stomach.. 90 tablet 3 [DISCONTINUED] loratadine (Claritin) 10 MG tablet Take 10 mg by mouth Daily as needed for allergies [DISCONTINUED] spironolactone (Aldactone) 25 MG tablet No current facility-administered medications on file prior [...] Date Arthritis Chest pain 05/21/2019 hypothyroidism COVID 07/28/2021 COVID-19 04/05/2021 pneumonia Diverticulosis Eosinophilic esophagitis Kidney [...] arthroplasty and tendo transfer Visit Vitals BP 118/78 Pulse 65 Ht 5' 4 Wt 180 lb SpO2 97% BMI 30.90 kg/m Smoking Status Never BSA 1.92 m Review of Systems Constitutional: Negative for chills, fatigue and fever. HENT: Negative for congestion, ear pain, rhinorrhea and sore throat. Eyes: Negative for pain, discharge and visual disturbance. Respiratory: Negative for cough, shortness of breath and wheezing. Cardiovascular: Negative for chest pain, palpitations and leg swelling. Gastrointestinal: Negative for abdominal pain, constipation, diarrhea, nausea and vomiting. Genitourinary: Negative for difficulty urinating, dysuria and frequency. Musculoskeletal: Negative for arthralgias and back pain. Skin: Negative for rash. Neurological: Negative for [...] guarding. Musculoskeletal: General: No swelling or deformity. Normal range of motion. Cervical back: Normal range of motion and neck supple. No tenderness. Skin: General: Skin is warm and dry. Capillary Refill: Capillary refill takes less than 2 seconds. Findings: Bruising (Resolving ecchymosis right middle phalanx little finger, palmar aspect) present. No rash. Neurological: General: No focal deficit [...] all orders for this visit: Wellness examination Wellness form reviewed in detail with the patient. Encouraged patient to stay up to date on immunizations and preventative testing. Encouraged healthy diet, stay active. Will continue with yearly wellness exams. Vitamin B-complex deficiency - Cyanocobalamin 1000 MCG sublingual tablet; Place 1 tablet under the tongue Daily Discussed treatment options with patient. She did feel better while on the B12 injections, but her insurance would not cover the injections. She would like to try the sublingual tablets. Will continue to monitor with routine labs. Unless otherwise specified, the following diagnoses are stable since patient's last appointment or are under the care of a specialist. Will continue to review correspondence from specialists as received. Will continue to monitor them with routine appointments in the office and labs when indicated. 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 Possibly due to fragility of the blood vessels in the fingers. No specific treatment indicated. She will continue to monitor. See photo for example of most recent occurrence. Other chronic pain Sleep disorder due to a general medical condition, mixed type Hiatal hernia Patient is scheduled for updated EGD in April. Frequent PVCs Grade II diastolic dysfunction Nonrheumatic mitral valve regurgitation Nonrheumatic tricuspid valve regurgitation Palpitation PSVT (paroxysmal supraventricular tachycardia) (HCC) Polyp of colon, unspecified part of colon, unspecified type Diverticulosis of colon Eosinophilic esophagitis Gastric mass History of gastric ulcer Irritable bowel syndrome with diarrhea Schatzki's ring of distal esophagus Gipsy-Walker grade 3 cystocele Cystocele, midline Enlarged uterus Fibroids, submucosal History of nephrolithiasis Overflow incontinence Cervical spondylosis without myelopathy Fibromyalgia Inflammatory polyarthropathy (HCC) Localized osteoarthritis of right knee 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 or radiculopathy Acquired hypothyroidism ESS (euthyroid sick syndrome) Wanda's disease Left ovarian cyst Non morbid obesity due to excess calories Vitamin D deficiency Other specified disorders involving the immune mechanism, not elsewhere classified (HCC) Abdominal bloating Bruises easily Chronic fatigue Elevated LDL cholesterol level Family history of breast cancer H/O tubal ligation Hypokalemia Lipoprotein deficiency disorder S/P endometrial ablation Sciatica, unspecified laterality Seasonal allergic rhinitis due to pollen Tubular adenoma Vision abnormalities Follow up in about 6 months (around 07/02/2025) for Recheck. documented in this encounter [facility] 12-10-2024 Telephone encounter Note Called TB lab, AFP is pending, Vit B12 is resulted and they will fax it over. [facility] 12-10-2024 Miscellaneous Notes Called TB lab, AFP is pending, Vit B12 is resulted and they will fax it over. documented in this encounter [facility] 11-20-2024 History of Present illness Narrative REASON FOR VISIT: Chester Negro is seen in initial consultation today for Hypothyroidism. HPI: Patient reports being diagnosed with hypothyroidism at age 20 and has been on thyroid hormone replacement since. She had been on COTTON BROKER Thyroid in the remote past and overall [...] Sent to Testing [facility]. [facility]19 [facility] Report to Follow. SARS COV 2 by PCR Collection Time: 04/05/21 4:21 PM Specimen: MISC NASOPHARYGEAL SWAB~Serum specimen Result Value Ref Range [...] fact that patient has felt better on [place] thyroid in the past, I will switch levothyroxine to a combination of [place] thyroid plus levothyroxine. I am starting her on 60 mg [place] thyroid along with 50 mcg levothyroxine and repeat thyroid labs in 6 weeks time. Will keep adjusting levothyroxine dose based on q.6 weeks lab results. We discussed holding biotin supplements for 3 days prior to thyroid lab draw. We discussed the importance of taking thyroid hormone replacement on an empty stomach and very consistently. RETURN TO CLINIC: 6 months documented in this encounter [facility] 10-14-2024 History of Present illness Narrative Images [...] been having weight loss without trying and [employer] is concerned. Current Outpatient Medications on File [...] FT4 Seeing Endocrinology on November 20 in [place], Dr. Chana Hurtado. Her TSH has been [...] Lipid panel The patient is seeing a emergency medicine medical director for this condition, treatment is deferred to that specialist. Correspondence from that specialist and any available testing were reviewed during today's visit. Tubular adenoma Patient has contacted Dr. Constantine Sanchez's office in [place], will getting an updated Colonoscopy, scheduled to see him in December, but is on a cancellation list. Follow up for Wellness. documented in this encounter [facility] 10-13-2024 Note [place] Electrophysiology Consult Note [place] Cardiology - [facility] Reason for visit: Palpitations/shortness of [...] the past and had been evaluated at [facility] also. She had initially battled COVID [...] Use: Not At Risk (04/05/2021) Received from [facility] Frequency of Alcohol Consumption: Never Average Number of Drinks: Not on file Frequency of Binge Drinking: Never Financial Resource Strain: Low Risk (04/05/2021) Received from [facility] Overall Financial Resource Strain (CARDIA) Difficulty of Paying Living Expenses: Not hard at all Food Insecurity: Not on file Transportation Needs: No Transportation Needs (04/05/2021) Received from [facility] PRAPARE - Transportation Lack of Transportation (Medical): No Lack of Transportation (Non-Medical): No Physical Activity: Unknown (12/19/2022) Received from [facility] Exercise Vital Sign Days of Exercise per Week: 6 days Minutes of Exercise per Session: Not on file Stress: No Stress Concern Present (04/05/2021) Received from [facility] [employer] - Occupational Stress Questionnaire Feeling of Stress : Not at all Social Connections: Unknown (12/19/2022) Received from [employer] Social Connection and Isolation Panel [NHANES] Frequency of Communication with Friends and Family: Not on file Frequency of Social Gatherings with Friends and Family: Not on file Attends Latter Day Services: Not on file Active Member of Clubs or Organizations: Patient declined Attends Club or Organization Meetings: Patient declined Marital Status: Intimate Partner Violence: Unknown (08/29/2023) [place] Safety & Environment Fear of Current or Ex-Partner: Not on file Emotionally Abused: Not on file Physically Abused: Not on file Sexually Abused: Not on file Physically or Sexually Abused: Not on file Depression: Not at risk (07/30/2024) Received from [facility] Healthcare PHQ-2 Patient Health Questionnaire-2 Score: 0 Housing [...] daily. 60 tabl (more content not included)... [facility] 08-20-2024 History of Present illness Narrative [...] PATIENT PRESENTS WITH AN IMPLANTABLE OR ATTACHED HOURLY ASSOCIATE: No RADIOLOGY DEPARTMENT: MR; Exam(s) Completed: Cardiac: Cardiac PERIPHERAL IV DATA: Site assessment: Clean,Dry and Intact, Site disposition Discontinued pt sts no allergy to contrast SIGNED BY: RT Amy(R) August 20, 2024 11:29 AM documented in this encounter [facility] 08-20-2024 Note HNO ID: [id number] Author: KARLENE WASHBURN RN Service: Radiology Author [...] Chloride. Patient screened negative for MRI incompatibilities. [facility] 08-20-2024 Note HNO ID: [id number] Author: DENICE FOURNIER RT(R) Service: Radiology Author Type: Single Stroke Preformer Type: Progress Notes Filed: 08/20/2024 11:30 Note [...] PATIENT PRESENTS WITH AN IMPLANTABLE OR ATTACHED HOURLY ASSOCIATE: No RADIOLOGY DEPARTMENT: MR; Exam(s) Completed: Cardiac: Cardiac PERIPHERAL IV DATA: Site assessment: Clean,Dry and Intact, Site disposition Discontinued pt sts no allergy to contrast SIGNED BY: Denice Fournier RT(R) August 20, 2024 11:29 AM [facility] 08-04-2024 Note [place] Electrophysiology Consult Note [place] Cardiology - [facility] Reason for visit: Palpitations/shortness of breath HPI: Chester Negro is a 63 y.o. year old with past medical history of hypothyroidism, history of eosinophilic esophagitis, diastolic dysfunction has been experiencing palpitation for some time she had been seen by Dr. VERA in the past and had been evaluated at [facility]. She had initially battled COVID [...] Tobacco Use: Low Risk (07/30/2024) Received from [facility] [employer] Patient History Smoking Tobacco Use: Never Smokeless Tobacco Use: Never Passive Exposure: Not on file Alcohol Use: Not At Risk (04/05/2021) Received from [facility], [facility]UD[facility]-C Frequency of Alcohol Consumption: Never Average Number of Drinks: Not on file Frequency of Binge Drinking: Never Financial Resource Strain: Low Risk (04/05/2021) Received from [facility] Overall Financial Resource Strain (CARDIA) Difficulty of Paying Living Expenses: Not hard at all Food Insecurity: Not on file Transportation Needs: No Transportation Needs (04/05/2021) [facility] PRAPARE - Transportation Lack of Transportation (Medical): No Lack of Transportation (Non-Medical): No Physical Activity: Unknown (12/19/2022) Received from [facility] [employer], [facility] Exercise Vital Sign Days of Exercise per Week: 6 days Minutes of Exercise per Session: Not on file Stress: No Stress Concern Present (04/05/2021) Received from [facility], [facility] [employer] - Occupational Stress Questionnaire Feeling of Stress : Not at all Social Connections: Unknown (12/19/2022) Received from [facility], [facility] Social Connection and Isolation Panel [NHANES] Frequency of Communication with Friends and Family: Not on file Frequency of Social Gatherings with Friends and Family: Not on file Attends Latter Day Services: Not on file Active Member of Clubs or Organizations: Patient declined Attends Club or Organization Meetings: Patient declined Marital Status: Intimate Partner Violence: Unknown (08/29/2023) [place] Safety & Environment Fear of Current or Ex-Partner: Not on file Emotionally Abused: Not on file Physically Abused: Not on file Sexually Abused: Not on file Physically or Sexually Abused: Not on file Depression: Not at risk (07/30/2024) Received from [facility] PHQ-2 Patient Health Questionnaire-2 Score: 0 [...] 3 dapagliflozin propaned (more content not included)... [facility] 07-30-2024 History of Present illness Narrative [...] fail to improve. documented in this encounter [facility] 06-24-2024 Note [facility] Cardiology Clinic Note Chief Complaint: Patient here for follow up echo and stress test. She was started on metoprolol at last visit and thinks it's helping to lessen the palpitations. She can tell when the next dose is due. HPI: Chester Negro is a 63 y.o. female With a longstanding history of palpitations. She was seen years ago by [employer] in [place]. She underwent a number of tests. She [...] denies illicit drugs. 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 Family history: Heart heart father of a [...] regurgitation or stenosis. Nuc stress Lexiscan Order: [id number] Narrative Chest pain radiating to jaw for [...] by Albaro Osei, (more content not included)... [facility] 05-20-2024 Note [facility] Cardiology Clinic Note Chief Complaint: New patient here to establish care. She wore 2 week Holter monitor last month for palpitations, SOB, and lightheadedness. She denies chest pain. HPI: Chester Negro is a 63 y.o. female With a longstanding history of palpitations. She was seen years ago by [employer] in [place]. She underwent a number of tests. She [...] denies illicit drugs. 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 Family history: Heart heart father of a [...] regurgitation or stenosis. Nuc stress Lexiscan Order: [id number] Narrative Chest pain radiating to jaw for [...] 13:14 Last Resulted: 05/22/19 13:54 Received From: [facility] CTA Chest W IV Contrast Order: [id number] Narrative Clinical indication Coughing, shortness of breath, [...] concerning for a (more content not included)... [facility] 03-31-2024 History of Present illness Narrative Images from the original note were not included. HPI referral to endocrinology Additional comments: She is still looking into this. She is going to check out one in [place]. Last edited by Anuja Meade LPN on [...] fail to improve. documented in this encounter [facility] 08-15-2023 History of Present illness Narrative Subjective Patient ID: Chester Negro is a 62 y.o. female who presents for Wellness. Subjective Chester Negro is a 62 y.o. female and is here for a comprehensive physical exam. The patient would like to discuss her Levothyroxine. States Dr. Zhao had her on [place] BROKER thyroid at one time and she felt [...] Hiatal hernia The patient is seeing a emergency medicine medical director for this condition, treatment is deferred to that specialist. Correspondence from that specialist and any available testing were reviewed during today's visit. Palpitation This is a chronic medical condition that is stable since last assessment. No changes in treatment are suggested at this time. Polyp of colon, unspecified part of colon, unspecified type The patient is seeing a emergency medicine medical director for this condition, treatment is deferred to that specialist. Correspondence from that specialist and any available testing were reviewed during today's visit. Diverticulosis of colon The patient is seeing a emergency medicine medical director for this condition, treatment is deferred to that specialist. Correspondence from that specialist and any available testing were reviewed during today's visit. Eosinophilic esophagitis The patient is seeing a emergency medicine medical director for this condition, treatment is deferred to that specialist. Correspondence from that specialist and any available testing were reviewed during today's visit. Gastric mass The patient is seeing a emergency medicine medical director for this condition, treatment is deferred to that specialist. Correspondence from that specialist and any available testing were reviewed during today's visit. History of gastric ulcer The patient is seeing a emergency medicine medical director for this condition, treatment is deferred to that specialist. Correspondence from that specialist and any available testing were reviewed during today's visit. Irritable bowel syndrome with diarrhea The patient is seeing a emergency medicine medical director for this condition, treatment is deferred to that specialist. Correspondence from that specialist and any available testing were reviewed during today's visit. Schatzki's ring of distal esophagus The patient is seeing a emergency medicine medical director for this condition, treatment is deferred to that specialist. Correspondence from that specialist and any available testing were reviewed during today's visit. Gipsy-Walker grade 3 cystocele The patient is seeing a emergency medicine medical director for this condition, treatment is deferred to that specialist. Correspondence from that specialist and any available testing were reviewed during today's visit. Cystocele, midline The patient is seeing a emergency medicine medical director for this condition, treatment is deferred to that specialist. Correspondence from that specialist and any available testing were reviewed during today's visit. Enlarged uterus The patient is seeing a emergency medicine medical director for this condition, treatment is deferred to that specialist. Correspondence from that specialist and any available testing were reviewed during today's visit. Fibroids, submucosal The patient is seeing a emergency medicine medical director for this condition, treatment is deferred to [...] free; Future - TSH; Future - thyroid (COT[place] BROKER Thyroid) 60 MG tablet; Take 1 tablet (60 mg) by mouth in the morning. - T3, free; Future - T4, free; Future - TSH; Future Will get updated baseline thyroid testing, the repeat in 6-8 weeks. She will restart the [place]OK[place] Thyroid and discontinue the Levothyroxine. Advise pt that if we cannot obtain stable labs regarding her thyroid I would recommend a referral to [facility] for further evaluation. She is in agreement with the above. ESS (euthyroid sick syndrome) - T3, free; Future - T4, free; Future - TSH; Future - thyroid (COTTON BROKER Thyroid) 60 MG tablet; Take 1 tablet (60 mg) by mouth in the morning. - T3, free; Future - T4, free; Future - TSH; Future See above. Wanda's disease (CMS/HCC) - T3, free; Future - T4, free; Future - TSH; Future - T3, free; Future - T4, free; Future - TSH; Future See above. Left ovarian cyst The patient is seeing a emergency medicine medical director for this condition, treatment is deferred to [...] breast cancer The patient is seeing a emergency medicine medical director for this condition, treatment is deferred to that specialist. Correspondence from that specialist and any available testing were reviewed during today's visit. H/O tubal ligation The patient is seeing a emergency medicine medical director for this condition, treatment is deferred to [...] endometrial ablation The patient is seeing a emergency medicine medical director for this condition, treatment is deferred to [...] Tubular adenoma The patient is seeing a emergency medicine medical director for this condition, treatment is deferred to that specialist. Correspondence from that specialist and any available testing were reviewed during today's visit. Vision abnormalities The patient is seeing a emergency medicine medical director for this condition, treatment is deferred to that specialist. Correspondence from that specialist and any available testing were reviewed during today's visit. Follow up in about 6 months (around 02/13/2024) for Medication Follow Up. documented in this encounter [facility] 02-02-2022 History of Present illness Narrative Images from the original note were not included. Gynecology Rounds POD# 1 Procedure: Anterior Colporrhaphy Date: 02/02/2022 Time: 10:00 AM Patient Name: Chester Negro Patient : 1960 Room[facility]: [facility] Admission Date/Time: 02/01/2022 6:[address] [facility] #: [id number] Attending Physician Statement I have discussed the [...] Ketones, Urine 02/01/2022 NEGATIVE NEGATIVE Final Specific [place], UA 02/01/2022 1.008 1.000 - 1.030 Final [...] QD - Currently asymptomatic Hypothyroidism - Continue [place] Thyroid 60mg BID Hx gastric ulcer - Will avoid PO NSAIDs Please [employer] Dr. Rehana Hernandez from [phone] with any questions David Kimball DO [employer] Resident 02/02/2022, 7:13 AM Gynecology Progress Note [...] NEGATIVE NEGATIVE Ketones, Urine NEGATIVE NEGATIVE Specific [place], UA 1.008 1.000 - 1.030 Urine Hgb [...] control: Tylenol/Pamela/Toradol prn - Labs: H&H @ 1999 - DVT Proph: Lovenox 40 mg QD, [...] QD - Currently asymptomatic Hypothyroidism - Continue [place] Thyroid 60mg BID Hx gastric ulcer - Will avoid PO NSAIDs Please [employer] Dr. Isabel Omer from [phone] with any questions [address] Dr. Ksenia Herman from [phone] Margarito Saldivar MD [employer] Resident Pager: [phone] 02/01/2022, 12:41 PM Resident Physician Statement I have personally seen the patient. I agree with the assessment, plan and orders as documented by horacio resident. I have made changes to the above note as needed. I have discussed the case with above named attending. Isabel Omer DO STORE ASSOCIATE PGY-3 02/01/2022 12:46 PM documented in this encounter [facility] [employer] Phone: 02-01-2022 Hospital Discharge instructions Ino Brothers DO - 02/01/2022 7:26 AM EDT Images from the original note were not included. Patient Name: Chester Negro Date: 02/01/2022 Time: 7:24 AM [facility] Obstetrics & Gynecology Outpatient Surgery After Care Instructions For Problems after Leaving the Hospital Call IN AN EMERGENCY CALL [phone] OR GO TO THE NEAREST EMERGENCY ROOM For The next 24 hours: Do not: drive, work, or operate machinery Do not: consume alcohol, tranquilizers, or sleeping medications Do not: make important personal or business decisions Normal post operative expectations: A low grade fever [place] coloration of skin from soap Sore scratchy [...] with food Take Pain medication with food [facility] Obstetrics & Gynecology Activity: Restrict your [...] all persons verbalize understanding of the instructions. [facility] Obstetrics & Gynecology [facility] [address] Discharge Instructions for Cystocele and Rectocele Repair [...] taking more than one drug. This includes [id number] medication and herb or dietary supplements. Plan [...] call 911 immediately. documented in this encounter [facility] [employer] Phone: 01-22-2022 History of Present illness Narrative Patient went to radiology for chest x-ray. Dr Brothers's office has already obtained endocrine clearance and this is included in surgery chart. documented in this encounter [facility] [employer] Phone: 01-22-2022 Hospital Discharge instructions Shahla Rapp [...] surgery with a sip of water: metoprolol, COTTON BROKER thyroid Surgery Instructions: After midnight before surgery: [...] powder, deodorant, jewelry, piercings, perfume, makeup, nail taiwanese, hair accessories, or hair spray on the day of surgery. Wear loose comfortable clothing. Leave your valuables at home. Bring a storage case for any glasses/contacts. The Day of Surgery: Arrive at [facility] Surgery Entrance at the time directed by your surgeon and check in at the desk. If you have a living will or healthcare power of criminal attorney, please bring a copy. You will be taken to the pre-op holding area where you will be prepared for surgery. A physical assessment will be performed by a nurse practitioner or customs house broker. Your IV will be started and you [...] room. . documented in this encounter [employer] [facility] Work Phone: 09-29-2021 History of Present illness Narrative It is to be noted that I can not sign the H&P for reason that I'm not assigned as a co signer. The nurse is aware and OKyed to start the Procedure SO ADMINISTRATION PLEASE DON'T SEND ME A LETTER. THANK YOU! documented in this encounter [employer] Phone: 09-25-2021 Reason for visit Narrative Specialty Diagnoses / Procedures Referred By Elma pepe Referred To Contact Diagnoses History of colon polyps GERD (gastroesophageal reflux disease) HISTORY OF COLON POLYPS / GERD COVID 09/25 Procedures NM ESOPHAGOGASTRODUODENOSCOPY TRANSORAL DIAGNOSTIC NM COLONOSCOPY FLX DX W/COLLJ SPEC WHEN PFRMD EGD COLONOSCOPY DIAGNOSTIC Constantine Sanchez MD [facility] [facility], [address] [place] [address] [employer] [address] [place] [address] Referral ID Status Reason Start Date Expiration Date Visits Re quested Visits Authorized [id number] 1 1 [employer] Phone: [phone] History of Present illness Narrative* Su Tolbert [...] lotion, powder, jewelry, piercings, perfume, makeup, nail taiwanese, hair accessories, or hair spray on the day of surgery. Wear loose comfortable clothing. 4. Leave your valuables at home. Bring a storage case for any glasses/contacts. 5. An adult who is responsible for you MUST drive you home and should be with you for the first 24 hours after surgery. The Day of Surgery: Arrive at [facility] Surgery Entrance at the time directed by your surgeon and check in at the desk. If you have a living will or healthcare power of criminal attorney, please bring a copy. You will be taken to the pre-op holding area where you will be prepared for surgery. A physical assessment will be performed by a nurse practitioner or customs house broker. Your IV will be started and you [...] Sharad and understanding verbalized. documented in this [facility] [employer] Phone: evaluation note* Diagnosis Visit for screening mammogram Other screening mammogram documented in this encounter [employer] Phone: evaluation note* Diagnosis Pre-op testing- Primary Preoperative examination, unspecified documented in this encounter [employer] Phone: evaluation note* Diagnosis Gastroesophageal reflux disease Esophageal reflux Screening for colorectal cancer Special screening for malignant neoplasms, colon documented in this encounter [employer] Phone: evaluation note* Diagnosis Overflow incontinence documented in this encounter [employer] Phone: evaluation note* Diagnosis Encounter for screening mammogram for malignant neoplasm of breast Other screening mammogram documented in this encounter [employer] Phone: evaluation note* Diagnosis Pre-op testing Preoperative examination, unspecified Cystocele, unspecified (CODE) documented in this encounter [employer] Phone: evaluation note* Diagnosis S/P anterior colporrhaphy- Primary Cystocele, unspecified (CODE) Gipsy-Walker grade 3 cystocele Overflow incontinence Cystocele REPAIR 02/01/2022 Cystocele, midline Other specified hypothyroidism History of gastric ulcer Personal history of other diseases of digestive system Heart palpitations Palpitations documented in this encounter [employer] Phone: evaluation note* Diagnosis Post-menopausal Asymptomatic postmenopausal status (age-related) (natural) documented in this encounter [employer] Phone: [email or web address] note* Diagnosis Wellness examination- Primary Cervical radiculopathy [...] bowel syndrome Schatzki's ring of distal esophagus Gipsy-Walker grade 3 cystocele Cystocele, midline Enlarged uterus [...] Other screening [facility] Palpitation- Primary Palpitations Shortness of breath Acquired hypothyroidism (CMS/HCC) Unspecified hypothyroidism documented in this encounter [facility]* Diagnosis 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 Thoracic spine pain Pain in thoracic spine 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 documented in this encounter [facility]* Diagnosis Abnormal finding on imaging of liver- Primary Hepatic lesion Hypokalemia Hypopotassemia Vitamin D deficiency Vitamin B-complex deficiency Unspecified vitamin B deficiency Acquired hypothyroidism (CMS/HCC) Unspecified hypothyroidism Elevated LDL cholesterol level (CMS/HCC) PSVT (paroxysmal supraventricular tachycardia) (CMS/HCC) Paroxysmal supraventricular tachycardia Tubular adenoma Benign neoplasm of unspecified site documented in this encounter [facility]* Diagnosis Acquired hypothyroidism- Primary Unspecified hypothyroidism [facility] Wellness examination- Primary Vitamin B-complex deficiency Unspecified vitamin B deficiency Cervical radiculopathy Brachial neuritis or radiculitis nos Median neuropathy of both upper extremities Occipital neuralgia, unspecified laterality Achenbach's syndrome Other chronic pain Sleep disorder due to a general medical condition, mixed type Other sleep disturbances Hiatal hernia Diaphragmatic hernia without mention of obstruction or gangrene Frequent PVCs Grade II diastolic dysfunction Nonrheumatic mitral valve regurgitation Nonrheumatic tricuspid valve regurgitation Palpitation Palpitations PSVT (paroxysmal supraventricular tachycardia) ([facility]) Paroxysmal supraventricular tachycardia Polyp of colon, unspecified part of colon, unspecified type Diverticulosis of colon Diverticulosis of colon (without mention of hemorrhage) Eosinophilic esophagitis Gastric mass Unspecified disorder of stomach and duodenum History of gastric ulcer Irritable bowel syndrome with diarrhea Irritable bowel syndrome Schatzki's ring of distal esophagus Gipsy-Walker grade 3 cystocele Cystocele, midline Enlarged uterus Hypertrophy of uterus Fibroids, submucosal Submucous leiomyoma of uterus History of nephrolithiasis Overflow incontinence Cervical spondylosis without myelopathy Fibromyalgia Unspecified myalgia and myositis Inflammatory polyarthropathy (HCC) Unspecified inflammatory polyarthropathy Localized osteoarthritis of right knee 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 or radiculopathy Acquired hypothyroidism Unspecified hypothyroidism ESS (euthyroid sick syndrome) Euthyroid sick syndrome Wanda's disease Chronic lymphocytic thyroiditis Left ovarian cyst Other and unspecified ovarian cyst Non morbid obesity due to excess calories Vitamin D deficiency Other specified disorders involving the immune mechanism, not elsewhere classified (HCC) Abdominal bloating Flatulence, eructation, and gas pain Bruises easily Other symptoms involving skin and integumentary tissues Chronic fatigue Other malaise and fatigue Elevated LDL cholesterol level Family history of breast cancer Family history of malignant neoplasm of breast H/O tubal ligation Hypokalemia Hypopotassemia Lipoprotein deficiency disorder Lipoprotein deficiencies S/P endometrial ablation Other postprocedural status Sciatica, unspecified laterality Seasonal allergic rhinitis due to pollen Tubular adenoma Benign neoplasm of unspecified site Vision abnormalities Unspecified visual loss [facility] Diagnosis EE (eosinophilic esophagitis) Eosinophilic esophagitis Diverticulosis of colon Diverticulosis of colon (without mention of hemorrhage) Weight loss Loss of weight documented in this encounter [facility] Discharge instructions* Instructions* Orestes Martell, RN - 09/29/2021 Images from the original [...] Where can you learn more? Go to [email or web address] and sign in to your [employer] account. Enter E264 in the Search Health Information box to learn more about Colonoscopy: What to Expect at Home. If you do not have an account, please click on the Sign Up Now link. [id number] [employer]. Care instructions adapted under license by [employer]. This care instruction is for use with your licensed healthcare professional. If you have questions about a medical condition or this instruction, always ask your healthcare professional. [employer] disclaims any warranty or liability for your use of this information. Content Version: [id number]; Last Revised: August 27, 2012 PATIENT INSTRUCTIONS [...] of fluids when exercising. MEDICATIONS: Take an pgoo-veo-abhxxpn fiber supplement as noted above twice daily. [...] to call your physician or the hospital boiler/chiller operator if you have any questions, and [...] Whole-grain breads, muffins, bagels, or dimitri bread [place] bread Whole-wheat crackers or crisp breads Whole-grain or bran cereals Oatmeal, oat bran, or grits Wheat germ Whole-wheat pasta and brown rice Read the ingredients list on food labels. Look for products that list whole as the first ingredient (eg, whole-wheat, whole oats). Choose cereals with at least 2 grams of fiber per serving. Vegetables All vegetables, especially asparagus, maldonado sprouts, broccoli, [place] sprouts, cabbage, carrots, cauliflower, celery, corn, greens, [...] All nuts and seeds, especially almonds, peanuts, [place] nuts, cashews, peanut butter, walnuts, sesame and [...] colonoscopy or sigmoidoscopy . A Colon Polyp 2011 [employer]. Reasons for Procedure The purpose of the [...] relievers for discomfort. Post-procedure Care At the Care Center The polyps will be sent to [...] throat or neck pain documented in this encounterJangl SMS Phone: InstructionsNot on filedocumented in this encounter [facility] for visit Narrative* Auth/Cert Specialty Diagnoses / Procedures Referred By Elma t Referred To Contact Diagnoses Cystocele, unspecified (CODE) PELVIC PRESSURE CYSTOCELE Procedures NM ANTERIOR COLPORRAPHY RPR CYSTOCELE W/CYSTO VAGINAL ANTERIOR REPAIR [employer], [facility] [facility], [address] [place] [address] [facility] [address] [place] [address] Referral ID Status Reason Start Date Expiration Date Visits Re quested Visits Authorized [id number] 1 1 [employer] Phone: reason for visit Narrative* MRI/CT (Routine) - Open Specialty Diagnoses / Procedures Referred By [facility] Referred To Contact [facility] Diagnoses Chronic diastolic (congestive) heart failure Eosinophilia, unspecified MRI Cardiac Morph function w/wo IVCON Diagnosis: Diastolic CHF, chronic Eosinophilic disorder Scanned Docs I50.32 Procedures CARD MRI W/W/O CON W/STRESS IMAGE MRI WWO CARD [address] Vik Mcarthur MD [address] [place] [address] Phone: tel: fax: [facility] [address] [place] [address] Phone: tel: Referral ID Status Reason Start Date Expiration Date V isits Requested Visits Authorized [id number] Open Patient Cleared - Admin/Chairm an/Director advise to proceed or did not respond 08/20/2024 10/19/2024 1 1 [facility] for visit Narrative* Auth/Cert Specialty Diagnoses / Procedures Referred By Elma Referred To Contact Diagnoses EE (eosinophilic esophagitis) Diverticulosis of colon Weight loss Procedures NM EGD TRANSORAL BIOPSY SINGLE/MULTIPLE NM ESOPHAGOGASTRODUODENOSCOPY TRANSORAL DIAGNOSTIC NM EGD BALLOON DILATION ESOPHAGUS <30 MM DIAM ESOPHAGOGASTRODUODENOSCOPY BIOPSY Ahmad, Farid U, MD [address], [address] [place] [address] Phone: tel: fax: [facility] [address] [place] [address] Referral ID Status Reason Start Date Expiration Date Visits Re quested Visits Authorized [id number] 1 1 [facility] Summary Purpose Family History No Family History Records FoundNo Family History Records FoundNo Family History Records FoundNo Family History Records FoundNo Family History Records FoundNo Family History Records FoundNo Family History Records FoundNo Family History Records FoundNo Family History Records Found Advance Directives No Advanced Directives Records FoundDocuments on File Type Date Recorded Patient Asbestos Remover Expl anation ACP-Advance Directive ACP-Power of Assistant Dean Of Students Latest Code Status on File Code Status Date Activated Date Inactivated Comments Full Code 03/14/2016 8:36 AM 03/15/2016 12:04 AM Documents on File Type Date Recorded Patient Asbestos Remover Expl anation ACP-Advance Directive ACP-Power of Assistant Dean Of Students Latest Code Status on File Code Status Date Activated Date Inactivated Comments Full Code 03/14/2016 8:36 AM 03/15/2016 12:04 AM Documents on File Type Date Recorded Patient Asbestos Remover Expl anation Advance Directives and Living Will Power of Assistant Dean Of Students Latest Code Status on File Code Status [...] SELF REFERRAL W OR WO CAD BILATERAL Zev Rose Helms, DO [address] [place] [id number] Specialty Diagnoses / Procedures Referred By Contac t Referred To Contact Radiology Diagnoses Encounter for screening mammogram for malignant neoplasm of breast Procedures JORGE FABIAN DIGITAL SCREEN BILATERAL JORGE DIGITAL SCREEN W OR WO CAD BILATERAL Ino Brothers, DO [address] [place] [id number] Referral ID Status Reason Start Date Expiration Date Visits Re quested Visits Authorized [id number] Closed 12/15/2021 12/15/2022 1 1 Specialty Diagnoses / Procedures Referred By Contac t Referred To Contact Cardiology Diagnoses Pre-op testing Procedures EKG 12 lead Ino Brothers, DO [address] [place] [address] Referral ID Status Reason Start Date Expiration Date Visits Re quested Visits Authorized [id number] Open 01/16/2022 01/16/2023 1 1 Specialty Diagnoses / Procedures Referred By Contac t Referred To Contact Radiology Diagnoses Post-menopausal Procedures DEXA BONE DENSITY AXIAL SKELETON Ino Brothers, DO [address] [place] [address] Referral ID Status Reason Start Date Expiration Date V isits Requested Visits Authorized [id number] Pending Review 12/05/2021 12/05/2022 1 1 Specialty Diagnoses / Procedures Referred By Contac t Referred To Contact Radiology Diagnoses Palpitation Shortness of breath Procedures Holter monitor Candy Gilbert PA [address] [facility] [address] [place] [address] Referral ID Status Reason Start Date Expiration Date V isits Requested Visits Authorized [id number] Pending Review 03/31/2024 09/27/2024 1 1 Additional Source Comments INFORMATION SOURCE (unrecogn ized section and content) DATE CREATED AUTHOR 12/31/2017 [facility] DATE CREATED AUTHOR AUTHOR'S ORGANIZ ATION 12/01/2021 [facility] dical Specialist DATE CREATED AUTHOR AUTHOR'S ORGANIZ ATION 04/27/2024 [facility] DATE CREATED AUTHOR AUTHOR'S ORGANIZ ATION 08/22/2024 [facility] DATE CREATED AUTHOR AUTHOR'S ORGANIZ ATION 12/18/2024 [facility] DATE CREATED AUTHOR AUTHOR'S ORGANIZ ATION 01/02/2025 [facility] dical Specialists EPIC DATE CREATED AUTHOR AUTHOR'S ORGANIZ ATION 03/15/2025 [facility] DATE CREATED AUTHOR AUTHOR'S ORGANIZ ATION 03/18/2025 [facility] DATE CREATED AUTHOR AUTHOR'S ORGANIZ ATION 04/09/2025 [facility] Reason for Visit (unrecogniz ed section and content) Status Reason Specialty Diagnoses / Procedures Referre d By Contact Referred To Contact Closed Radiology Diagnoses Visit for screening mammogram Procedures JORGE FABIAN DIGITAL SCREEN SELF REFERRAL W OR WO CAD BILATERAL [employer], [place] [address] Specialty Diagnoses / Procedures Referred By Contac t Referred To Contact Radiology Diagnoses Encounter for screening mammogram for malignant neoplasm of breast Procedures JORGE FABIAN DIGITAL SCREEN BILATERAL JORGE DIGITAL SCREEN W OR WO CAD BILATERAL [employer], [address] [address] Referral ID Status Reason Start Date Expiration Date Visits Re quested Visits Authorized [id number] Closed 12/15/2021 12/15/2022 1 1 Specialty Diagnoses / Procedures Referred By Contac t Referred To Contact Radiology Diagnoses Post-menopausal Procedures DEXA BONE DENSITY AXIAL SKELETON Ino Brothers, DO [address] [place] [address], [address] [address] Referral ID Status Reason Start Date Expiration Date V isits Requested Visits Authorized [id number] Pending Review 12/05/2021 12/05/2022 1 1 Specialty Diagnoses / Procedures Referred By Elma pepe Referred To Contact Radiology Diagnoses Encounter for screening mammogram for malignant neoplasm of breast Procedures JORGE FABIAN DIGITAL SCREEN BILATERAL JORGE DIGITAL SCREEN W OR WO CAD BILATERAL Beam, Samantha Churchill, PANTOGRAPH MACHINE OPERATOR - BRANCH LOGISTICS SUPERVISOR [address] [facility] [address] [place] [address] Referral ID Status Reason Start Date Expiration Date Visits Re quested Visits Authorized [id number] Closed 04/12/2024 04/12/2025 1 1 Reason Comments referral to endocrinology She is still l ooking into this. [place] is going to check out one in [place]. 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 Reason Comments Annual Exam Care Teams (unrecognized sec tion and content) Actimize Architect Relationship Specialty Start Date End Date Candy Gilbert [address] [place] [address] PCP - General 11/25/15 Actimize Architect Relationship Specialty Start Date End Date Candy Gilbert [address] [place] [address] PCP - General 11/25/15 Actimize Architect Relationship Specialty Start Date End Date Candy Gilbert [address] [place] [address] PCP - General 11/25/15 Actimize Architect Relationship Specialty Start Date End Date Candy Gilbert [address] [place] [address] PCP - General 11/25/15 Actimize Architect Relationship Specialty Start Date End Date Candy Gilbert [address] [place] [address] PCP - General 11/25/15 Actimize Architect Relationship Specialty Start Date End Date Candy Gilbert [address] [place] [address] PCP - General 11/25/15 Actimize Architect Relationship Specialty Start Date End Date Candy Gilbert [address] [place] [address] PCP - General 11/25/15 Actimize Architect Relationship Specialty Start Date End Date Candy Gilbert [address] [place] [address] PCP - General 11/25/15 Actimize Architect Relationship Specialty Start Date End Date Candy Gilbert [address] [place] [address] PCP - General 11/25/15 Actimize Architect Relationship Specialty Start Date End Date Cali Zhao MD [address] [place] [address] (Fax) PCP - [employer] 10/06/20 Jose Cruz Young MD [address] [facility] [address] [place] [address] PCP - General Internal Medicine 11/23/22 Actimize Architect Relationship Specialty Start Date End Date Cali Zhao MD [address] [place] [address] (Fax) PCP - [employer] 10/06/20 Jose Cruz Young MD [address] [address] PCP - General Internal Medicine 11/23/22 Actimize Architect Relationship Specialty Start Date End Date Cali Zhao MD [address] [place] [address] (Fax) PCP - [employer] 10/06/20 Candy Gilbert PA [address] [facility] [address] [place] [address] PCP - General Family Medicine 08/15/23 Actimize Architect Relationship Specialty Start Date End Date Candy Gilbert PA-C PCP - General 11/25/15 Actimize Architect Relationship Specialty Start Date End Date Candy Gilbert PA [address] [facility] [address] [place] [address] PCP - General Family Medicine 08/15/23 Actimize Architect Relationship Specialty Start Date End Date Candy Gilbert PA [address] [facility] [address] [place] [address] PCP - General Family Medicine 08/15/23 Actimize Architect Relationship Specialty Start Date End Date Candy Gilbert PA [address] [facility] [address] [place] [address] PCP - General Family Medicine 08/15/23 Actimize Architect Relationship Specialty Start Date End Date Candy Gilbert PA [address] [facility] [address] [place] [address] PCP - General Family Medicine 08/15/23 Actimize Architect Relationship Specialty Start Date End Date Candy Gilbert PA [address] [facility] [address] [place] [address] PCP - General Family Medicine 08/15/23 Actimize Architect Relationship Specialty Start Date End Date Candy Gilbert PA [address] [facility] [address] [place] [address] PCP - General Family Medicine 08/15/23 Actimize Architect Relationship Specialty Start Date End Date Candy Gilbert PA PCP - General 11/30/17 Actimize Architect Relationship Specialty Start Date End Date Candy Gilbert PA-C PCP - General 11/25/15 Actimize Architect Relationship Specialty Start Date End Date Candy Gilbert PA [address] [place] [address] PCP - [facility] Family Medicine 08/15/23 Actimize Architect Relationship Specialty Start Date End Date Candy Gilbert PA [address] [place] [address] PCP - General [facility] Medicine 08/15/23 Actimize Architect Relationship Specialty Start Date End Date Candy Gilbert PA [address] [place] [address] PCP - [facility] Medicine 08/15/23 Actimize Architect Relationship Specialty Start Date End Date Candy Gilbert PA-C PCP - General 11/25/15 Scheduled Active [...] - Provider: Mark Zapata Jr., BORIS - EDGING SUPERVISOR)1031 (Paused - Provider: Mark Zapata Jr., APRN - EDGING SUPERVISOR - Comment: Switch to gravity)1032 (Restarted - Provider: Mark Zapata Jr., BORIS - EDGING SUPERVISOR) PRN Medication Order 09/27/2021 09/28/2021 09/29/2021 0.9 [...] at 200 mL/hr, Administer over 60 Minutes, PROJECT FINANCIAL ANALYST TO O.R., On Sat02/01/22 at 0630, For 1 dose, Administer within 1 hour prior to incision., Pre-op (day of surgery) 0803 (Given - Provider: Kam Polanco, BORIS - EDGING SUPERVISOR) clindamycin (CLEOCIN) 900 mg in dextrose 5 % 50 mL IVPB (COMPLETED) 900 mg, IntraVENous, EVERY 8 HOURS, 2 doses, First dose on Sat02/01/22 at 1600, Last dose on Sat02/02/22 at 0000, Antimicrobial Indications: Surgical Prophylaxis 1605 (New Bag - Provider: Audrey Smith RN)1706 (Stopped - Provider: Kaya Marroquin RN)2330 (New Bag - Provider: Lacynda J Vik, RN) 0030 (Stopped - Provider: Tram Chery RN)003 (Stopped - Provider: Tram Chery RN) docusate sodium (COLACE) capsule 100 mg 100 mg, Oral, 2 TIMES DAILY, First dose on Sat02/01/22 at 1030, Until Discontinued, Do not crush or break., Post-op 1105 (Given - Provider: Kaya Marroquin RN)9 (Given - Provider: Tram Chery RN) 08 [...] approval) 2099 (Due - Provider: Yamileth Beltre [facility]) metoprolol tartrate (LOPRESSOR) tablet 25 mg 25 mg, Oral, DAILY, First dose on Sat02/02/22 at 0900, Until Discontinued 0704 (Given - Provid er: Kaya Marroquin RN) metronidazole (FLAGYL) 500 mg in 0.9% NaCl 100 mL IVPB premix (COMPLETED) 500 mg, IntraVENous, at 100 mL/hr, Administer over 60 Minutes, PROJECT FINANCIAL ANALYST TO O.R., On Sat02/01/22 at 0630, For 1 dose, Administer within 1 hour prior to incision., Pre-op (day of surgery) 0749 (Given - Provider: Kam Polanco, PANTOGRAPH MACHINE OPERATOR - EDGING SUPERVISOR) pantoprazole (PROTONIX) tablet 40 mg 40 mg, [...] Fluid Infusing)2100 (Not Given - Provider: Tram Chery, ADRIENNE - Reason: IV Fluid Infusing) 0900 (Due)2100 (Due) thyroid (ARMOUR) tablet 60 mg 60 mg, Oral, 2 times daily, First dose on Adalgisa 02/01/22 at 2100, Until Discontinued 2328 (Given - Provider: Tram Chery, ADRIENNE - Comment: meds not available) 0704 (Given [...] Marroquin RN)1558 (Rate/Dose Change - Provider: Kaya Marroquin, ADRIENNE)1603 (Paused - Provider: Kaya Marroquin RN)1605 (Paused - Provider: Kaya Marroquin RN)1706 (Rate/Dose Change - Provider: Kaya Marroquin RN)1833 (Rate/Dose Verify - Provider: Kaya Marroquin RN)2156 (Rate/Dose Change - Provider: Tram Chery RN)2156 (Rate/Dose Change - Provider: Tram Chery, RN) 0156 (Stopped - Provider: Tram Chery [...] Post-op 2340 (Given - Provider: Tram Chery, RN) ondansetron (ZOFRAN) injection 4 mg(Linked Group 1) [...] urine. 1445 (Given - Provider: Kaya Marroquin RN)3194 (Given - Provider: Tram Chery, RN) 0559 (Given - Provider: Tram Chery, ADRIENNE) sodium chloride flush 0.9 % injection 5-40 [...] 1003, Until Discontinued, Pain Severe (7-10), Post-op Continuous Medication Order 03/09/2025 03/10/2025 03/11/2025 0.9 % sodium chloride infusion IntraVENous, at 125 mL/hr, CONTINUOUS, Starting on Adalgisa 03/11/25 at 1100, Pre-op (day of surgery) 1100 (Due) lactated ringers infusion IntraVENous, at 125 mL/hr, CONTINUOUS, Starting on Adalgisa 03/11/25 at 1100, Pre-op (day of surgery) 1037 (New Bag - Prov ider: Katlyn Lau RN)1115 (NoRateChange - Provider: BORIS Nelson CRNA)1126 (Paused - Provider: BORIS Nelson CRNA - Comment: Switch to gravity)1127 (Restarted - Provider: BORIS Nelson CRNA) PRN Medication Order 03/09/2025 03/10/2025 03/11/2025 lidocaine PF 1 % injection 1 mL 1 mL, IntraDERmal, ONCE PRN, 1 dose, Starting on Sat03/12/25 at 0000, Until Discontinued, IV start, Pre-op (day of surgery) Ordered Prescriptions (unrec ognized section and content) [...] or prosecute any alcohol or drug abuse patient.[facility] FOR RECORDS PERTAINING TO PATIENTS WHO [...] BE BASED ON THE PRIMARY CLINICAL RECORDS. [facility] [employer] [facility]. provides no warranty or guarantee of the accuracy or completeness of information in this document.
[2025-04-12 10:33] LABS: Free T3 3.24 pg/mL (2.18-3.98); Thyroid Stimulating Hormone 5.906 uIU/mL (0.358-3.740)
== END 2025-04-12 08:47 | disposition home or self-care (01) ==
LOC: LAB 08:50
PROVIDERS: PCP Physician Assistant; Visit Provider Internal Medicine
DX: E03.9 Hypothyroidism, unspecified (principal)
CPT/HCPCS: 36415; 84439; 84443; 84481

== ENCOUNTER 2025-04-12 09:04 | Outpatient (OUT) | payer BC, SELFPAY ==
--- NOTE | 2025-04-12 09:00 | CA_ITS ---
Patient Name: CHESTER UGALDE MR#: [id number] : 1960 Exam Date: 04/12/2025 Ordering Doctor: DR ARLENE HADDAD M.D. ECHOCARDIOGRAM REPORT PROCEDURE: CA ECHO DOPPLER COMPLETE INDICATIONS: Abnormal ECG, heart failure, hypertension COMPARISON: None. DESCRIPTION: COMPLETE ECHOCARDIOGRAM Real-time transthoracic echocardiography with 2D, M-mode, spectral and color flow Doppler performed. QUALITY: Technical quality was good. LEFT VENTRICLE: Normal chamber size. Proximal septal hypertrophy (sigmoid septum). Normal systolic function. Estimated left ventricular ejection fraction is 60%. LV EF: Normal left ventricular ejection fraction, (>55%). DIASTOLIC: Normal diastolic function. ATRIAL SEPTUM: Visually appears intact. LEFT ATRIUM: Moderate dilatation. RIGHT ATRIUM: Normal chamber size. RIGHT VENTRICLE: Normal chamber size. Normal right ventricular systolic function. TRICUSPID VALVE: Normal mobility and thickness. No stenosis with mild regurgitation. No evidence of pulmonary hypertension. RVSP 32 mmHg MITRAL VALVE: Normal mobility and thickness. No evidence of mitral valve stenosis. There is no mitral annular calcification. Mild mitral regurgitation. AORTIC VALVE: Normal trileaflet appearance. No visible sclerosis. Normal leaflet mobility. No evidence of aortic valve stenosis. No aortic regurgitation. AORTIC ROOT: Normal diameter and appearance, measuring 3.6 cm. Ascending aorta is normal in size, measuring 3.1 cm. PULMONIC VALVE: Normal thickness and mobility. No stenosis. Trivial regurgitation. PERICARDIUM: No evidence of pericardial effusion. IVC: Collapses with inspirations. IVC is dilated (3.1 cm) PLEURA: CONCLUSION: 1. Normal left regular size and systolic function. Estimated LVEF is 60%. 2. Normal right ventricular size and systolic function. 3. Normal diastolic function. 4. Mild mitral and tricuspid regurgitation. 5. Normal right-sided pressures. Adult Echocardiography Procedure Report Left Ventricle LVEDD (3.7 - 5.6 cm): 4.56 cm LVESD (2.2 - 4.0 cm): 2.39 cm LVIVS thickness (0.6 - 1.2 cm): 1.27 cm LVPW thickness (0.5 - 1.0 cm): 0.94 cm e': 0.12 m/s E - e': 6.24 LVOT Max Gradient: 3.25 mm[Hg] LVOT Area (cm2): 0.90 m/s Peak Velocity (LVOT): 0.90 m/s Mean Velocity (LVOT): 0.67 m/s LVOT Diameter 2.25 cm Left Ventricular Ejection Fraction: 60 % Left Atrium LA Volume Index (2D A2C): 39.51 ml/m2 Left Atrium Systolic Dimension: 4.09 cm Mitral Valve MV E to A Ratio: 1 Mitral Valve A-Wave Peak Velocity: 0.75 m/s Mitral Valve E-Wave Peak Velocity: 0.75 m/s Right Ventricle Aorta AO Root Diam: 3.56 cm Ascending Ao Diam: 3.15 cm Aortic Valve AoV Area (Peak Pedro): 3.10 cm2, 3.10 cm2 AoV Area (VTI): 3.49 cm2, 3.49 cm2 Peak Velocity(Antegrade Flow): 1.15 m/s Peak Gradient(Antegrade Flow): 5.30 mm[Hg] Mean Velocity(Antegrade Flow): 0.77 m/s Mean Gradient(Antegrade Flow): 2.79 mm[Hg] Velocity Time Integral: 28.08 cm Tricuspid Valve Peak Velocity (Regurgitant Flow): 2.56 m/s Pulmonic Valve Peak Velocity: 0.84 m/s Peak Gradient: 2.82 mm[Hg] Right Atrium Right Atrium Systolic Pressure: 42.81 ml, 42.81 ml Dictated by: Bar Lemus M.D. on 04/12/2025 at 13:39 Approved by: Bar Lemus M.D. on 04/12/2025 at 13:44
--- OUTSIDE RECORDS SUMMARY | 2025-04-12 09:22 | XMS_ITS | CCD ---
Author Organization [facility] Care Team Providers Care Top Carrier Name Role Phone CANDY GILBERT Unavailable Unavailable CANDY GILBERT Unavailable Unavailable CANDY GILBERT Unavailable Unavailable Candy Gilbert Primary Care Provider Candy Gilbert Primary Care Provider [phone] Candy Gilbert Primary Care Provider Cali Zhao MD Unavailable Jose Cruz Young MD Primary Care Provider [phone] Candy Patterson Primary Care Provider [phone] Candy Gilbert PA-C Primary Care Provider SAMANTHA WEAVER Referring Unavailable CANDY GILBERT Primary Care Unavailable Unavailable Primary Care Provider UnavailVIK Haddad Referring Unavailable Hemmer Candy PRUITT Primary Care Provider CHANA HURTADO Attending Unavailable CANDY GILBERT Referring [...] (1 source) Penicillins Drug Allergy 2 [facility] celecoxib; Translations: [celecoxib] Drug Allergy 2 Other (See Comments), GI Bleeding [facility] Repository (1 source) penicillin; Translations: [penicillin] Drug Allergy AOF [facility] Repository (20 sources) Shellfish-Deriv ed Products Propensity to adverse reactions to drug 2 Diarrhea, Nausea And Vomiting, GI intolerance, Other [facility] (15 sources) meloxicam; Translations: [MELOXICAM] Drug Allergy 8 Other (See Comments) [facility] (20 sources) Penicillins; Translations: [PENICILLINS] Propensity to adverse reactions to drug 2 Swelling, Angioedema [facility] Work Phone: (20 sources) gabapentin; Translations: [GABAPENTIN] Drug Allergy 2 Nausea Only, Nausea And Vomiting [facility] [employer] (20 sources) meloxicam Drug Allergy 3 Other [facility] Healthcare (3 sources) Seafood Propensity to adverse reactions to drug 2 Diarrhea, Nausea And Vomiting [employer] (2 sources) Shellfish Propensity to adverse reactions to drug 4 Diarrhea [employer] (1 source) Shellfish; Translations: [SHELLFISH DERIVED] Propensity to adverse reactions to drug (disorder) [facility] Repository Medications Current Medications Medication Drug [...] in the morning. 0 Active estrogens, conjugated (nursing home) 0.625 mg/ml vaginal cream (6 sources) Estrogen [...] (PYRIDIUM) tablet 200 mg polyethylene glycol [phone] mg powder for oral solution (3 sources) [...] muscle every 30 days. 0 Active thyroid (nursing home) 60 mg oral tablet (16 sources) Start: 11-20-2024 take 1 tablet by mouth once daily thyroid (Milton) 60 MG tablet Take 60 mg by mouth Daily 11/20/2024 Active Start: 08-15-2023 take 1 tablet by arsalan th in the morning thyroid (CIRCULATING NURSE Thyroid) 60 MG tablet Indications: Acquired hypothyroidism (CMS/HCC) , ESS (euthyroid sick syndrome) Take 1 tablet (60 mg) by mouth in the morning. 30 tablet 2 08/15/2023 Active Start: 08-15-2023 take 1 tablet by arsalan th in the morning thyroid (CIRCULATING NURSE Thyroid) 60 MG tablet Indications: Acquired hypothyroidism (CMS/HCC) , ESS (euthyroid sick syndrome) Take 1 tablet (60 mg) by mouth in the morning. 30 tablet 2 08/15/2023 Active Start: 12-19-2021 take 60 mg by mouth twice daily 60 mg, Oral, 2 times daily, First dose on Adalgisa 02/01/22 at 2100, Until Discontinued Start: 11-09-2021 take 1 tablet by arsalan th twice daily CIRCULATING NURSE THYROID 90 MG tablet take 1 tablet by mouth twice a day ON AN EMPTY STOMACH 0 11/09/2021 Active take 1 tablet by arsalan th once daily in the morning CIRCULATING NURSE THYROID 60 MG tablet Take 1 tablet [...] Test Name Value Interpretation Reference Range Facility [facility]IST[facility] 03-16-2025 [facility] (NOTE) Path Number: [id number] -- Diagnosis -- A. DUODENUM, BIOPSY: - [...] findings. Jose Villalba D.O. Electronically Signed [facility]03/15/2025 Clinical Information Pre-Op Diagnosis: EE (EOSINOPHILIC [...] negative with appropriate reactive controls. Processing Lab: [address] [address] [place] [address] SURGICAL PATHOLOGY CONSULTATION Patient Name: CHESTER NEGRO. Med Rec: [id number] [facility] ANATOMIC PATHOLOGY [address] [facility]. [place], [place] [address] [facility] Original Ordering Pr ovider: CONSTANTINE SANCHEZ [facility] Healthcare Orders Onlyon 03-12-2025 Orders Only [id number] Chester Negro 1960 F Date Provider Department Center 03/12/2025 Yeimy-JOELLE VERDE [facility] Family History Problem Relation Age of Onset Supraventricular tachycardia Mother Atrial fibrillation Mother Heart attack Father Coronary artery disease Sister Coronary artery disease Brother Family Status - Relation Status Age at Mother Alive Father Sister Alive Brother [facility] Surgical Pathology Reporton 03-11-2025 Surgical Pathology Report (NOTE) Path Number: [id number] -- Diagnosis -- A. DUODENUM, BIOPSY: - [...] negative with appropriate reactive controls. Processing Lab: [facility] [address] [place] [address] Interpretation Performed at [facility] [address] [place] [address] SURGICAL PATHOLOGY CONSULTATION Patient Name: CHESTER NEGRO [facility] Rec: [id number] [facility] ANATOMIC PATHOLOGY [address] [place], [place] [address] Normal [facility] CREATININEon 01-25-2025 Creatinine [Mass/Vol] 0.51 mg/dL Low 0.55 - 1.02 mg/dL [facility] GFR/1.73 sq M.predicted CKD-EPI (S/P/Bld) [Vol rate/Area] >60 >=60 mL/min/1.7 3m 2 [facility] Interpretation and review of laboratory results Abnormal [facility] EGFR-NON AF MALDIVIAN >60 >=60 mL/min/1.7 3m 2 [facility] US RIGHT UPPER QUADRANTon [address] [address] Ultrasound Report Signed Patient: CHESTER NEGRO MR#: [id number] : 1960 Acct:[id number] Age/Sex: 64 / F ADM Date: 12/09/24 Loc: US Attending Dr: CANDY GILBERT Ordering Physician: CANDY GILBERT Date of Service: 12/09/24 Procedure(s): US right upper quadrant Accession Number(s): [id number] cc: CANDY GILBERT [address] [address] Patient Name: CHESTER NEGRO MRN: [facility]:[id number] date: 1960 Sex: F Assigned Patient Location: US Current Patient Location: US Accession/Order Number: [id number] Exam Date: 12/10/2024 15:01 Report Date: 12/10/2024 [...] Mccarthy M.D. 12/10/2024 3:03 PM Dictation Location: [place] [address] Electronically authenticated by: [id number] Y Date: 12/10/2024 15:03 Dictated By: Kodak Mccarthy D.O. Signed By: 12/10/24 1506 DD/ 1503 TD/TT: Statistical Assistant: Irina Johnsonogregla jewell MD - 12/10/2024 [place] [address] Ultrasound Report Signed Patient: CHESTER NEGRO MR#: [id number] : 1960 Acct:[id number] Age/Sex: 64 / F ADM Date: 12/09/24 Loc: US Attending Dr: CANDY GILBERT Ordering Physician: CANDY GILBERT Date of Service: 12/09/24 Procedure(s): US right upper quadrant Accession Number(s): [id number] cc: CANDY GILBERT [place] [address] Patient Name: CHESTER NEGRO MRN: [facility]:[id number] date: 1960 Sex: F Assigned Patient Location: US Current Patient Location: US Accession/Order Number: [id number] Exam Date: 12/10/2024 15:01 Report Date: 12/10/2024 [...] Mccarthy M.D. 12/10/2024 3:03 PM Dictation Location: [place] [address] Electronically authenticated by: [id number] Y Date: 12/10/2024 15:03 Dictated By: Kodak Mccarthy D.O. Signed By: 12/10/24 1506 DD/ 1503 TD/TT: Statistical Assistant: [facility] Radiology Study observation (narrative) [facility] US RIGHT UPPER QUADRANTOrder ed By: Radiologist Radiology on 12-10-2024 [facility] Work Phone: ALL CBC WITH AUTO DIFFon BASOPHILS ABSOLUTE AUTO 0 [facility] Basophils/100 WBC (Bld) 0.2 % 0.2 - 2.0 % [facility] Eosinophils/100 WBC (Bld) 7.4 % High 0.9 - 7.0 % [facility] Erythrocyte distribution width (RBC) [Ratio] 11.7 % 11.0 - 15.0 % [facility] Hematocrit (Bld) [Volume fraction] 38.2 % 36.0 - 48.0 % [facility] Hemoglobin (Bld) [Mass/Vol] 13.1 g/dL 12.0 - 16.0 g/dL [facility] IMMATURE GRANULOCYTES ABS AUTO 0.01 [facility] Immature granulocytes/100 WBC (Bld) 0.2 % 0.0 - 0.5 % [facility] Interpretation and review of laboratory results Abnormal [facility] LYMPHOCYTES ABSOLUTE AUTO 1.1 Low [facility] Lymphocytes/100 WBC (Bld) 22.3 % 20.5 - 60.0 % [facility] MCH (RBC) [Entitic mass] 29.7 pg 26.7 - 34.0 pg [facility] MCHC (RBC) [Mass/Vol] 34.3 g/dL 29.9 - 35.2 g/dL [facility] MCV (RBC) [Entitic vol] 86.6 fL 81.0 - 99.0 fL [facility] MONOCYTES ABSOLUTE AUTO 0.5 [facility] Monocytes/100 WBC (Bld) 9.9 % 1.7 - 12.0 % [facility] NEUTROPHILS ABSOLUTE AUTO 2.9 [facility] Neutrophils/100 WBC (Bld) 60 % 43.0 - 75.0 % [facility] Platelet mean volume (Bld) [Entitic vol] 9.4 fL Low 9.5 - 13.5 fL [facility] TBH EO # 0.4 [facility] TB PLT 175 [facility] RBC 4.41 [facility] WBC 4.8 [facility] HPV DNA High Riskon 11-27-[address] [facility] Comment on above: Result Comment: This [...] other forensic purposes. Performed By: #### H [facility] #### [address] [address] Pediatric Associate: Sonu Heredia MD HPV Type 16 Not detected Normal [facility] Comment on above: Performed By: #### H [facility] #### [address] [address] Pediatric Associate: Sonu Heredia MD HPV Type 18 Not detected Normal [facility] Comment on above: Performed By: #### [facility] #### [address] [address] Pediatric Associate: Sonu Heredia MD Other High Risk HPV Not detected Normal [facility] Comment on above: Performed By: #### H [facility] #### [address] [address] Pediatric Associate: Sonu Heredia MD HPV DNA High Riskon 11-26-19 HPV Sample .THIN PREP Normal [facility] Comment on above: Performed By: #### H [facility] #### [address] [address] Pediatric Associate: Sonu Heredia MD Source CERVICAL MATERIAL Normal [facility] Comment on above: Performed By: #### H [facility] #### [address] [address] Pediatric Associate: Sonu Heredia MD Cytology Reporton 11-24-2024 Cytology report Cyto stain.thin prep Doc (Cvx/Vag) (NOTE) Path Number: [id number] DIAGNOSIS Imaged ThinPrep Pap - Cervical (1 [...] or for other forensic [place] [address] . Source of Specimen: A: Imaged ThinPrep Pap - Cervical (1 monolayer slide) HPV Reflex?.................... ..HPV Regardless Clinical History Co-Test: ThinPrep Pap with high risk HPV testing Z01.419 Routine scale agent exam without abnormal findings Z11.51 Encounter for screening for HPV Processing Lab: [address] [address] Interpretation performed at [address] [address] This Pap Test has been evaluated with [...] GYNECOLOGIC CYTOLOGY REPORT Patient Name: CHESTER NEGRO [facility] Rec: [id number] [facility] ANATOMIC PATHOLOGY [address] [place] [address]. [place] [address] [facility] Office Visiton 10-13-2024 Follow-up visit [id number] Chester Negro 1960 F Date Provider Department Center 10/13/2024 Joss-VIK MCARTHUR [facility] Family History Problem Relation Age of Onset Supraventricular tachycardia Mother Atrial fibrillation Mother Heart attack Father Coronary artery disease Sister Coronary artery disease Brother Family Status - Relation Status Age at Mother Alive Father Sister Alive Brother Level of Service:[address]54 [place] OFFICE/OUTPATIENT ESTABLISHED LOW MDM 20 MIN [facility] MR Heart cine for blood flow velocity mappingon 08-20-2024 * * *Final Report* * * DATE OF EXAM: Aug 20 2024 12:01PM HCM 0704 - MRI CARDIAC VELOCITY FLOW MAP / PROCEDURE REASON: Chronic diastolic (congestive) heart failure * * * * Physician Interpretation * * * * RESULT: Cardiac MRI Report: [facility] Date of service: 08/20/2024 10:56:05 AM Linked orders:[id number] CARD MORPH FUNC WO/W IVCON;[id number] CARDIAC VELOCITY FLOW MAP. Ordering physician: VIK MCARTHUR Technologist: DNEICE FOURNIER Fellow: Jonathan Sagastume MD Interpreting physician: [...] +------+ +------+ Mid 1011.18 96.93 +------+ +------+ [place] 970.72 117.30 +------+ +------+ Global 1018.40 103.55 +------+ +------+ Normal values based on healthy individuals: T1: 950 +/- 21 ms; ECV: 26 +/- 4% Aortic Valve: There is no aortic regurgitation. AV Flow Quantification: ST Junction Forward Volume: 83 ml Reverse Volume: 1 ml Net Forward Volu (more content not included)... [facility] Provider, Rosa Lawson - 08/20/2024 * * *Final Report* * * DATE OF EXAM: Aug 20 2024 12:01PM HCM 0704 - MRI CARDIAC VELOCITY FLOW MAP / PROCEDURE REASON: Chronic diastolic (congestive) heart failure * * * * Physician Interpretation * * * * RESULT: Cardiac MRI Report: [facility] Date of service: 08/20/2024 10:56:05 AM Linked orders:[id number] CARD MORPH FUNC WO/W IVCON;[id number] CARDIAC VELOCITY FLOW MAP. Ordering physician: VIK [...] +------+ +------+ Mid 1011.18 96.93 +------+ +------+ [place] 970.72 117.30 +------+ +------+ Global 1018.40 103.55 +------+ +------+ Normal values based on healthy individuals: T1: 950 +/- 21 ms; ECV: 26 +/- 4% Aortic Valve: There is no aortic regurgitation. AV Flow Quantification: ST Junction Forward Volume: 83 ml Reverse Volume: 1 ml Net Forward Volume: 82 ml Regurgitant Fraction: 1 % Pulmonic Valve: PV Flow Quantification: (more content not included)... [facility] MRI CARD MORPH FUNC WO/W IVC ONon 08-20-2024 MRI CARD MORPH FUNC WO/W IVCON * * *Final Report* * * DATE OF EXAM: Aug 20 2024 12:01PM HCM 0703 - MRI CARD MORPH FUNC WO/W IVCON / PROCEDURE REASON: Chronic diastolic (congestive) heart failure * * * * Physician Interpretation * * * * RESULT: Cardiac MRI Report: [facility] Date of service: 08/20/2024 10:56:05 AM Linked orders:[id number] CARD MORPH FUNC WO/W IVCON;[id number] CARDIAC VELOCITY FLOW MAP. Ordering physician: VIK [...] +------+ +------+ Mid 1011.18 96.93 +------+ +------+ [place] 970.72 117.30 +------+ +------+ Global 1018.40 103.55 [...] 0 % (more content not included)... Normal [facility] MRI CARDIAC MORPH FUNC WO/W IVCONon 08-20-2024 * * *Final Report* * * DATE OF EXAM: Aug 20 2024 12:01PM HCM 0703 - MRI CARD MORPH FUNC WO/W IVCON / PROCEDURE REASON: Chronic diastolic (congestive) heart failure * * * * Physician Interpretation * * * * RESULT: Cardiac MRI Report: [facility] Date of service: 08/20/2024 10:56:05 AM Linked orders:[id number] CARD MORPH FUNC WO/W IVCON;[id number] CARDIAC VELOCITY FLOW MAP. Ordering physician: VIK [...] +------+ +------+ Mid 1011.18 96.93 +------+ +------+ [place] 970.72 117.30 +------+ +------+ Global 1018.40 103.55 +------+ +------+ Normal values based on healthy individuals: T1: 950 +/- 21 ms; ECV: 26 +/- 4% Aortic Valve: There is no aortic regurgitation. AV Flow Quantification: ST Junction Forward Volume: 83 ml Reverse Volume: 1 ml Net Forward Vol (more content not included)... [facility] Provider, [facility] - 08/20/2024 * * *Final Report* * * DATE OF EXAM: Aug 20 2024 12:01PM HCM 0703 - MRI CARD MORPH [facility] WO/W IVCON / PROCEDURE REASON: Chronic diastolic (congestive) heart failure * * * * Physician Interpretation * * * * RESULT: Cardiac MRI Report: [facility] Date of service: 08/20/2024 10:56:05 AM Linked orders:[id number] CARD MORPH FUNC WO/W IVCON;[id number] CARDIAC VELOCITY FLOW MAP. Ordering physician: VIK [...] +------+ +------+ Mid 1011.18 96.93 +------+ +------+ [place] 970.72 117.30 +------+ +------+ Global 1018.40 103.55 +------+ +------+ Normal values based on healthy individuals: T1: 950 +/- 21 ms; ECV: 26 +/- 4% Aortic Valve: There is no aortic regurgitation. AV Flow Quantification: ST Junction Forward Volume: 83 ml Reverse Volume: 1 ml Net Forward Volume: 82 ml Regurgitant Fraction: 1 % Pulmonic Valve: PV Flow Quantification: (more content not included)... [facility] MRI CARDIAC VELOCITY FLOW MT Abhishek 08-20-2024 MRI CARDIAC VELOCITY FLOW MAP * * *Final Report* * * DATE OF EXAM: Aug 20 2024 12:01PM HCM 0704 - MRI CARDIAC VELOCITY FLOW MAP / PROCEDURE REASON: Chronic diastolic (congestive) heart failure * * * * Physician Interpretation * * * * RESULT: Cardiac MRI Report: [facility] Date of service: 08/20/2024 10:56:05 AM Linked orders:[id number] CARD MORPH FUNC WO/W IVCON;[id number] CARDIAC VELOCITY FLOW MAP. Ordering physician: VIK [...] +------+ +------+ Mid 1011.18 96.93 +------+ +------+ [place] 970.72 117.30 +------+ +------+ Global 1018.40 103.55 [...] 0 % (more content not included)... Normal [facility] No Panel Informationon 08-20 IMPRESSION: 1. [...] GREGORY MD on Aug 20 2024 3:56PM [facility] Radiology Study observation (narrative) [facility] No Panel InformationOrdered By: Ccf Provider on 08-20-2024 [facility] 36on 08-18-2024 36 I received a call fr om the patient regarding an MRI order that was supposed to be sent to [facility], she requests a call back at [phone] to discuss further. [facility] Office Visiton 08-04-2024 Follow-up visit [id number] Chester Negro 1960 F Date Provider Department Center 08/04/2024 VIK GARCIA ORALIA [facility] Family History Problem Relation Age of Onset Supraventricular tachycardia Mother Atrial fibrillation Mother Family Status - Relation Status Age at Mother Level of Service:[address] [place] OFFICE/OUTPATIENT NEW MODERATE MDM 45 MINUTES Normal [facility] XR THORACIC SPINE 2 VIEWSon 07-30-2024 [...] PANELon 07-11-2024 Anion gap [Moles/Vol] 12.5 mmol/L [facility] Calcium [Mass/Vol] 9.1 mg/dL 8.5 - 10. 1 mg/dL [facility] Chloride [Moles/Vol] 108 mmol/L High 98 - 10 7 mmol/L [facility] CO2 [Moles/Vol] 28.8 mmol/L 21.0 - 32.0 mmol/L [facility] Creatinine [Mass/Vol] 0.68 mg/dL 0.55 - 1.02 mg/dL [facility] GFR/1.73 sq M.predicted CKD-EPI (S/P/Bld) [Vol rate/Area] >60 >=60 mL/min/1.7 3m 2 [facility] Glucose [Mass/Vol] 89 mg/dL 74 - 106 mg/dL [facility] Interpretation and review of laboratory results Abnormal [facility] Potassium [Moles/Vol] 4.3 mmol/L 3.5 - 5.1 mmol/L [facility] Sodium [Moles/Vol] 145 mmol/L 136 - 145 mmol/L [facility] TBH EGFR-NON AF MALDIVIAN >60 >=60 mL/min/1.7 3m 2 [facility] Urea nitrogen [Mass/Vol] 9 mg/dL 7.0 - 18.0 mg/dL [facility] Urea nitrogen/Creatinine [Mass ratio] 13.2 mg/mg [facility] Office Visiton 06-24-2024 Follow-up visit [id number] Chester Negro 1960 F Date Provider Department Center 06/24/2024 ARLENE CARBALLO Family History Problem Relation Age of Onset Supraventricular tachycardia Mother Family Status - Relation Status Age at Mother Level of Service:80233 [place] OFFICE/OUTPATIENT ESTABLISHED MOD MDM 30 MIN [facility] 36on 06-11-2024 36 Regarding stress phu t result from 06/01/2024: MD Isabel Patel MA Please reassure the patient that her stress test was nonischemic Thank you. Before I call her, were you able to review the echo she had on 06/01 also? And if they're normal, does she still need apt with you on 06/24? Please advise. Thanks. [facility] Office Visiton 05-20-2024 Follow-up visit [id number] Wynne 1960 Date Provider Department Center 05/20/2024 ARLENE CARBALLO Family History Problem Relation Age of Onset Supraventricular tachycardia Mother Family Status - Relation Status Age at Mother Level of Service:60337 [place] OFFICE/OUTPATIENT NEW MODERATE MDM 45 MINUTES [facility] JORGE FABIAN DIGITAL SCREEN ONEIL Renteria 04-27-2024 [facility] FABIAN DIGITAL SCREEN BILATERAL EXAMINATION: SCREENING [...] women 40 years and older. Performing Facility: [address] [place] [address] Interpreted by: Denice Danielle MD Signed by: Denice Danielle MD 04/27/24 Final result Normal [facility] DEXA BONE DENSITY AXIAL SK ETONon [...] have additional risk factors. Template code: RPnmNSD_DX_dxa [facility] EXAMINATION: BONE DENSITOMETRY 03/20/2022 6:25 am TECHNIQUE: A bone density dual x-ray absorptiometry (DXA) scan was performed of the lumbar spine and left hip on a Sylantro system. COMPARISON: None. HISTORY: ORDERING SYSTEM PROVIDED HISTORY: Post-menopausal TECHNOLOGIST PROVIDED HISTORY: post menopausal Gender: F Age: 61 y/o FINDINGS: LUMBAR SPINE: L1-L4 BMD: 1.461 g/cm2 T-score: 2.1 Z-score: 2.5 LEFT TOTAL HIP: BMD: 1.156 g/cm2 T-score: 1.2 Z-score: 1.5 LEFT FEMORAL NECK: BMD: 1.136 g/cm2 T-score: 0.7 Z-score: 1.4 FRAX: Not Indicated. [facility] Derek Verde DO - 03/20/2022 EXAMINATION: BONE DENSITOMETRY 03/20/2022 6:25 am TECHNIQUE: A bone density dual x-ray absorptiometry (DXA) scan was performed of the lumbar spine and left hip on a Sylantro system. COMPARISON: None. HISTORY: ORDERING SYSTEM PROVIDED [...] have additional risk factors. Template code: RPnmNSD_DX_dxa [facility] Work Phone: Radiology Study observation (narrative) [employer] Phone: DEXA BONE DENSITY AXIAL SKEL ETONOrdered By: Derek Verde on 03-20-2022 [facility] Work Phone: Hemoglobin and Hematocriton 02-01-2022 Hematocrit (Bld) [Volume fraction] 35.5 % Low 36 - 46 % [facility] Hemoglobin (Bld) [Mass/Vol] 12.5 g/dL 12 - 16 g/dL [facility] Interpretation and review of laboratory results Abnormal [facility] [employer] Urinalysis with Reflex to Cu ltureon 02-01-2022 Bilirubin Urine Negative NEGATIVE [facility] Color, UA Yellow Yellow [facility] Glucose, Ur Negative NEGATIVE [facility] Ketones Ql (U) Negative NEGATIVE [facility] Leukocyte esterase Test strip Ql (U) Negative NEGATIVE [facility] Nitrite, Urine Negative NEGATIVE [facility] pH, UA 6.5 5 - 8 [facility] Protein, UA Negative NEGATIVE [facility] Specific [place], UA 1.008 1 - 1.03 [facility] Turbidity UA Clear Clear [facility] Urinalysis Comments Microscopic exam not performed based on chemical results unless requested in original order. [facility] Urine Hgb Negative NEGATIVE [facility] Urobilinogen, Urine Normal Normal [facility] EKG 12 leadOrdered By: Dayanna Jones on 01-23-2022 Atrial Rate 57 BPM [facility] Work Phone: [phone] P [place] 6 degrees [facility] Work Phone: P-R Interval 134 ms [facility] Work Phone: Q-T Interval 430 ms [facility] Work Phone: QRS Duration 92 ms [facility] Work Phone: QTc Calculation (Bazett) 418 ms [facility] Work Phone: R [place] -27 degrees [facility] Work Phone: T [place] -7 degrees [facility] Work Phone: Ventricular Rate 57 BPM [facility] [email or web address] Work Phone: [facility] Work Phone: EKG 12 leadon 01-23-2022 Sinus bradycardia Low voltage QRS Borderline ECG When compared with ECG of 07-MAR-2016 09:50, No significant change was found [facility] Yevgeniy Mon MD - 01/23/2022 Sinus bradycardia Low voltage QRS Borderline ECG When compared with ECG of 07-MAR-2016 09:50, No significant change was found [facility] Work Phone: Urine cultureon 01-23-2022 Bacteria identified Cx Nom (U) NO SIGNIFICANT GROWTH [facility] Specimen Description .CLEAN CATCH URINE [facility] Basic Metabolic Panel w/ Ref se to MGon 01-22-2022 Anion gap [Moles/Vol] 8 mmol/L Low 9 - 17 mmol/L [facility] Calcium [Mass/Vol] 9.5 mg/dL 8.6 - 10. 4 mg/dL [facility] Chloride [Moles/Vol] 104 mmol/L 98 - 10 7 mmol/L [facility] CO2 [Moles/Vol] 27 mmol/L 20 - 31 mmol/L [facility] Creatinine [Mass/Vol] 0.51 mg/dL 0.5 - 0.9 mg/dL [facility] GFR >60 60 - PI NF mL/min [facility] GFR Non- >60 60 - PINF mL/min [facility] GFR/1.73 sq M.predicted MDRD (S/P/Bld) [Vol rate/Area] [facility] Comment on above: Average GFR for 50-5 9 years old: 93 mL/min/1.73sq m Chronic Kidney Disease: <60 mL/min/1.73sq m Kidney failure: <15 mL/min/1.73sq m eGFR calculated using average adult body mass. Additional eGFR calculator available at: http://www.My Healthy World.The Vetted Net/multiple_crcl_2012.htm Glucose [Mass/Vol] 87 mg/dL 70 - 99 mg/dL [facility] Interpretation and review of laboratory results Abnormal [facility] Potassium [Moles/Vol] 4.5 mmol/L 3.7 - 5.3 mmol/L [facility] Sodium [Moles/Vol] 139 mmol/L 135 - 144 mmol/L [facility] Urea nitrogen (BldV) [Mass/Vol] 13 mg/dL 6 - 20 mg/dL [facility] CBC auto differentialon 01-05 Absolute Eos # 0.50 High [facility] Absolute Lymph # 1.50 [facility] Absolute [place] # 0.50 [facility] Basophils (Bld) [#/Vol] 0.00 10*3/uL [facility] Basophils/100 WBC (Bld) 0 % 0 - 2 % [facility] Eosinophils/100 WBC (Bld) 6 % High 0 - 4 % [facility] Hematocrit (Bld) [Volume fraction] 42.2 % 36 - 46 % [facility] Hemoglobin (Bld) [Mass/Vol] 14.2 g/dL 12 - 16 g/dL [facility] Interpretation and review of laboratory results Abnormal [facility] Lymphocytes/100 WBC (Bld) 21 % Low 24 - 44 % [facility] MCH (RBC) [Entitic mass] 28.5 pg 26 - 34 pg [facility] MCHC (RBC) [Mass/Vol] 33.6 g/dL 31 - 37 g/dL [facility] MCV (RBC) [Entitic vol] 84.7 fL 80 - 100 fL [facility] Monocytes/100 WBC (Bld) 7 % 1 - 7 % [facility] Platelet distribution width (Bld) [Ratio] 13.4 % 11.5 - 14.9 % [facility] Platelet mean volume (Bld) [Entitic vol] 8.1 fL 6 - 12 fL [facility] Platelets (Bld) [#/Vol] 217 10*3/uL [facility] RBC (Bld) [#/Vol] 4.98 10*6/uL 4 - 5.2 m/uL [facility] Segmented neutrophils/100 WBC (Bld) 66 % 36 - 66 % [facility] Segs Absolute 4.70 [facility] WBC (Bld) [#/Vol] 7.1 10*3/uL [facility] No Panel Informationon 01-22 No acute [...] cardiomediastinal silhouette. IMPRESSION: No acute cardiopulmonary disease. [employer] Work Phone: Radiology Study observation (narrative) [employer] Work Phone: No Panel InformationOrdered By: Patrick Jimenez on 01-22-2022 [facility] Work Phone: Serum (quantitativ e)on 01-22-2022 hCG Quant 2 NINF [facility] Comment on above: Non-preg premeno <=5 Postmeno <=8 Male <=3 If HCG results do not concur with clinical observations, additional testing to confirm results is recommended. Elevated results not associated with may be found in patients with other diseases such as tumors of the germ cells (testis, ovaries, etc.), bladder, pancreas, stomach, lungs, and liver. [facility] TYPE AND SCREENon 01-22-2022 ABO/Rh Negative [facility] Arm Band Number [id number] [employer] Expiration Date 02/04/2022,2355 [facility] Urinalysison 01-22-2022 Bilirubin Urine Negative NEGATIVE [employer] Color, UA Yellow Yellow [facility] Glucose, Ur Negative NEGATIVE [facility] Ketones Ql (U) Negative NEGATIVE [facility] Leukocyte esterase Test strip Ql (U) Negative NEGATIVE [facility] Nitrite, Urine Negative NEGATIVE [facility] pH, UA 6.5 5 - 8 [facility] Protein, UA Negative NEGATIVE [facility] Specific [place], UA 1.012 1 - 1.03 [facility] Turbidity UA Clear Clear [facility] Urinalysis Comments Microscopic exam not performed based on chemical results unless requested in original order. [facility] Urine Hgb Negative NEGATIVE [facility] Urobilinogen, Urine Normal Normal [facility] Microscopic Urinalysison Bacteria, UA FEW Abnormal None [facility] Casts UA 0 TO 2 /LPF [facility] Epithelial Cells UA 6 TO 9 /HPF [facility] Interpretation and review of laboratory results Abnormal [facility] RBC, UA 3 to 5 /HPF [facility] WBC, UA 3 to 5 /HPF [facility] Urinalysis with Reflex to Cu ltureon 12-27-2021 Bilirubin Urine Negative NEGATIVE [facility] Color, UA Yellow Yellow [facility] Glucose, Ur Negative NEGATIVE [facility] Interpretation and review of laboratory results Abnormal [facility] Ketones Ql (U) Negative NEGATIVE [facility] Leukocyte esterase Test strip Ql (U) MOD Abnormal NEGATIVE [facility] Nitrite, Urine Negative NEGATIVE [facility] pH, UA 6.0 [facility] Protein, UA Negative NEGATIVE [facility] Specific [place], UA 1.018 [facility] Turbidity UA Clear Clear [facility] Urine Hgb Negative NEGATIVE [facility] Urobilinogen, Urine Normal Normal [facility] JORGE FABIAN DIGITAL SCREEN BILA TERALon [...] mammograms for women 40 years and older. [facility] EXAMINATION: SCREENING DIGITAL BILATERAL MAMMOGRAM WITH [...] suspicious microcalcification, or area of architectural distortion. [facility] Radiology Study observation (narrative) [employer] Phone: JORGE FABIAN DIGITAL SCREEN BILA TERALOrdered By: Glory Joy on 12-25-2021 [facility] [employer] Phone: Free T3on 11-29-2021 FT3 6.51 pg/mL High 2.00-4.40 [facility] Microbiology Analyst Comment on above: Performed By: #### F T3, TSH, FT4 #### [facility] [address], [place] [id number] Free T4on 11-29-2021 Free T4 [Mass/Vol] 1.24 ng/dL Normal 0.80-1.80 [facility] Microbiology Analyst Comment on above: Performed By: #### F T3, TSH, FT4 #### [facility] [address], [place] [id number] TSHon 11-29-2021 TSH 1.100 uIU/mL Normal 0.400-4.50 0 [facility] Microbiology Analyst Comment on above: Performed By: #### F T3, TSH, FT4 #### [facility] [address], [place] [id number] Free T3on 10-23-2021 FT3 2.10 pg/mL Normal 2.00-4.40 [facility] Microbiology Analyst Comment on above: Performed By: #### F T3, TSH, FT4 #### [facility] [address], [place] [id number] Free T4on 10-23-2021 Free T4 [Mass/Vol] 0.59 ng/dL Low 0.80-1.80 [facility] Comment on above: Performed By: #### F T3, TSH, FT4 #### [facility] [address], [place] [id number] Q - T3 TOTALon 10-23-2021 T3, TOTAL 84 ng/dL Normal 76-181 [facility] Comment on above: Order Comment: [facility] performed at: [facility], [employer] [facility], [address], [address] [place], [address], [employer] Member: Roque Guerrero MDQuest Collection Date/Time: [id number] Results Received Date/Time: [id number] Reported Date/Time: FASTING: NO Performed By: #### F T3, TSH, FT4 #### [facility] [address], [place] [id number] Q - T3,REVERSE,LC/MS/MSon T3 REVERSE, LC/MS/MS 6 ng/dL Low 8-25 [facility] Comment on above: Order Comment: [facility] performed at: [facility], [employer]/[facility], [address], [place], [place], , [employer] Member: Kale Leon M.D.,PhDQuest Collection Date/Time: [id number] Results Received Date/Time: [id number] Reported Date/Time: FASTING: NO Result Comment: This test was developed and its analytical performance characteristics have been determined by [employer] [place], [place]. It has not been cleared or approved by the U.S. Food and Drug Administration. This assay has been validated pursuant to the CLIA regulations and is used for clinical purposes. Performed By: #### F T3, TSH, FT4 #### [facility] [address], [place] [id number] TSHon 10-23-2021 TSH 165.300 uIU/mL High 0.400-4.50 0 [facility] Comment on above: Performed By: #### F T3, TSH, FT4 #### [facility] [address], [place] [id number] Basic Metabolic Panelon -0 Anion gap [Moles/Vol] 18 mmol/L Normal 12-20 [facility] Comment on above: Result Comment: Effe ctive 07/13/2019 reference range changed. Performed By: #### C RP, CK, TSH, FT4, FT3, ESR, CBCAD, BMP #### [facility] [address], [place] [id number] Calcium [Mass/Vol] 9.9 mg/dL Normal 8.6-10.2 [facility] Comment on above: Performed By: #### C RP, CK, TSH, FT4, FT3, ESR, CBCAD, BMP #### [facility] [address], [place] [id number] Chloride [Moles/Vol] 107 mmol/L Normal 98-[address] [facility] Comment on above: Performed By: #### C RP, CK, TSH, FT4, FT3, ESR, CBCAD, BMP #### [facility] [address], [place] [id number] CO2 [Moles/Vol] 23 mmol/L Normal 20-31 [facility] Comment on above: Performed By: #### C RP, CK, TSH, FT4, FT3, ESR, CBCAD, BMP #### [facility] [address], [place] [id number] Creatinine [Mass/Vol] 0.7 mg/dL Normal 0.6-1.4 [facility] Comment on above: Performed By: #### C RP, CK, TSH, FT4, FT3, ESR, CBCAD, BMP #### [facility] [address], [place] [id number] eGFRAA 108 mL/min/1.73m2 Normal >60 [facility] Comment on above: Performed By: #### C RP, CK, TSH, FT4, FT3, ESR, CBCAD, BMP #### [facility] [address], [place] [id number] eGFRNAA 89 mL/min/1.73m2 Normal >60 [facility] Microbiology Analyst Comment on above: Performed By: #### C RP, CK, TSH, FT4, FT3, ESR, CBCAD, BMP #### [facility] [address], [place] [id number] Glucose [Mass/Vol] 86 mg/dL Normal 65-99 [facility] Microbiology Analyst Comment on above: Result Comment: For FASTING Glucose --- ADA reference ranges: Normal 65-99 mg/dl Prediabetes 100-125 Diabetes >/= 126 Performed By: #### C RP, CK, TSH, FT4, FT3, ESR, CBCAD, BMP #### [facility] [address], [place] [id number] Potassium [Moles/Vol] 4.5 mmol/L Normal 3.5-5.5 [facility] Microbiology Analyst Comment on above: Performed By: #### C RP, CK, TSH, FT4, FT3, ESR, CBCAD, BMP #### [facility] [address], [place] [id number] Sodium [Moles/Vol] 143 mmol/L Normal 135-146 [facility] Microbiology Analyst Comment on above: Performed By: #### C RP, CK, TSH, FT4, FT3, ESR, CBCAD, BMP #### [facility] [address], [place] [id number] Urea nitrogen [Mass/Vol] 13 mg/dL Normal 7-25 [facility] Microbiology Analyst Comment on above: Performed By: #### C RP, CK, TSH, FT4, FT3, ESR, CBCAD, BMP #### [facility] [address], [place] [id number] C-Reactive Proteinon 022 CRP IV 1.2 mg/dl Normal <5.0 [facility] Microbiology Analyst Comment on above: Performed By: #### C RP, CK, TSH, FT4, FT3, ESR, CBCAD, BMP #### [facility] [address], [place] [id number] Complete Blood Count with Au to Diffon 07-12-2021 Basophils (Bld) [#/Vol] 0.02 10*3/uL Normal 0.00-0.[address] [facility] Specialist Comment on above: Performed By: #### C RP, CK, TSH, FT4, FT3, ESR, CBCAD, BMP #### [facility] [address], [place] [id number] Basophils/100 WBC (Bld) 0.3 % Normal [facility] Specialist Comment on above: Performed By: #### C RP, CK, TSH, FT4, FT3, ESR, CBCAD, BMP #### [facility] [address], [place] [id number] Eosinophils (Bld) [#/Vol] 0.69 10*3/uL High 0.02-0.50 [facility] Microbiology Analyst Comment on above: Performed By: #### C RP, CK, TSH, FT4, FT3, ESR, CBCAD, BMP #### [facility] [address], [place] [id number] Eosinophils/100 WBC (Bld) 9.2 % Normal [facility] Specialist Comment on above: Performed By: #### C RP, CK, TSH, FT4, FT3, ESR, CBCAD, BMP #### [facility] [address], [place] [id number] Erythrocyte distribution width (RBC) [Ratio] 12.2 % Normal 11.0-15.0 [facility] Microbiology Analyst Comment on above: Performed By: #### C RP, CK, TSH, FT4, FT3, ESR, CBCAD, BMP #### [facility] [address], [place] [id number] Hematocrit (Bld) [Volume fraction] 40.9 % Normal 35.0-47.0 [facility] Microbiology Analyst Comment on above: Performed By: #### C RP, CK, TSH, FT4, FT3, ESR, CBCAD, BMP #### [facility] [address], [place] [id number] Hemoglobin (Bld) [Mass/Vol] 13.5 g/dL Normal 11.6-15.5 [facility] Microbiology Analyst Comment on above: Performed By: #### C RP, CK, TSH, FT4, FT3, ESR, CBCAD, BMP #### [facility] [address], [place] [id number] Lymphocytes (Bld) [#/Vol] 1.4 10*3/uL Normal 0.9-3.[address] [facility] Specialist Comment on above: Performed By: #### C RP, CK, TSH, FT4, FT3, ESR, CBCAD, BMP #### [facility] [address], [place] [id number] Lymphocytes/100 WBC (Bld) 18.1 % Normal [facility] Specialist Comment on above: Performed By: #### C RP, CK, TSH, FT4, FT3, ESR, CBCAD, BMP #### [facility] [address], [place] [id number] MCH (RBC) [Entitic mass] 28.6 pg Normal 27.0-33.[address] [facility] Specialist Comment on above: Performed By: #### C RP, CK, TSH, FT4, FT3, ESR, CBCAD, BMP #### [facility] [address], [place] [id number] MCHC (RBC) [Mass/Vol] 33.0 g/dL Normal 32.0-36.[address] [facility] Specialist Comment on above: Performed By: #### C RP, CK, TSH, FT4, FT3, ESR, CBCAD, BMP #### [facility] [address], [place] [id number] MCV (RBC) [Entitic vol] 87 fL Normal 80-[address] [facility] Specialist Comment on above: Performed By: #### C RP, CK, TSH, FT4, FT3, ESR, CBCAD, BMP #### [facility] [address], [place] [id number] Monocytes (Bld) [#/Vol] 0.7 10*3/uL Normal 0.2-0.[address] [facility] Specialist Comment on above: Performed By: #### C RP, CK, TSH, FT4, FT3, ESR, CBCAD, BMP #### [facility] [address], [place] [id number] Monocytes/100 WBC (Bld) 8.7 % Normal [facility] Specialist Comment on above: Performed By: #### C RP, CK, TSH, FT4, FT3, ESR, CBCAD, BMP #### [facility] [address], [place] [id number] Neutrophils (Bld) [#/Vol] 4.7 10*3/uL Normal 1.5-7.[address] [facility] Specialist Comment on above: Performed By: #### C RP, CK, TSH, FT4, FT3, ESR, CBCAD, BMP #### [facility] [address], [place] [id number] Neutrophils/100 WBC (Bld) 63.3 % Normal [facility] Specialist Comment on above: Performed By: #### C RP, CK, TSH, FT4, FT3, ESR, CBCAD, BMP #### [facility] [address], [place] [id number] Platelet mean volume (Bld) [Entitic vol] 10.00 fL Normal 7.50-12.50 [facility] Comment on above: Performed By: #### C RP, CK, TSH, FT4, FT3, ESR, CBCAD, BMP #### [facility] [address], [place] [id number] Platelets (Bld) [#/Vol] 267 10*3/uL Normal 140-[address] [facility] Specialist Comment on above: Performed By: #### C RP, CK, TSH, FT4, FT3, ESR, CBCAD, BMP #### [facility] [address], [place] [id number] RBC (Bld) [#/Vol] 4.72 10*6/uL Normal 3.90-5.20 [facility] Specialist Comment on above: Performed By: #### C RP, CK, TSH, FT4, FT3, ESR, CBCAD, BMP #### [facility] [address], [place] [id number] RDW-SD 39.2 fL Normal 37.0-50.[address] [facility] Specialist Comment on above: Performed By: #### C RP, CK, TSH, FT4, FT3, ESR, CBCAD, BMP #### [facility] [address], [place] [id number] WBC (Bld) [#/Vol] 7.5 10*3/uL Normal 3.8-11.0 Valerie rn [place] Microbiology Analyst Comment on above: Performed By: #### C RP, CK, TSH, FT4, FT3, ESR, CBCAD, BMP #### [facility] [address], [place] [id number] Creatine Kinaseon 07-12-2021 CK [Catalytic activity/Vol] 16 U/L Low 26-192 [facility] Microbiology Analyst Comment on above: Performed By: #### C RP, CK, TSH, FT4, FT3, ESR, CBCAD, BMP #### [facility] [address], [place] [id number] Free T3on 07-12-2021 FT3 3.04 pg/mL Normal 2.00-4.40 [facility] Microbiology Analyst Comment on above: Performed By: #### C RP, CK, TSH, FT4, FT3, ESR, CBCAD, BMP #### [facility] [address], [place] [id number] Free T4on 07-12-2021 Free T4 [Mass/Vol] 1.29 ng/dL Normal 0.80-1.80 [facility] rn [place] Microbiology Analyst Comment on above: Performed By: #### C RP, CK, TSH, FT4, FT3, ESR, CBCAD, BMP #### [facility] [address], [place] [id number] RBC Sedimentation Rateon ESR (Bld) [Velocity] 10.00 mm/h Normal 0.00-30.00 [facility] Microbiology Analyst Comment on above: Performed By: #### F T3, TSH, FT4 #### [facility] [address], [place] [id number] TSHon 07-12-2021 TSH 13.040 uIU/mL High 0.400-4.50 0 [facility] Microbiology Analyst Comment on above: Performed By: #### C RP, CK, TSH, FT4, FT3, ESR, CBCAD, BMP #### [facility] [address], [place] [id number] JORGE FABIAN DIGITAL SCREEN SELF REFERRAL W [...] mammograms for women 40 years and older. [employer] Phone: EXAMINATION: SCREENI NG DIGITAL BILATERAL MAMMOGRAM [...] suspicious microcalcification, or area of architectural distortion. [employer] Phone: [employer] Phone: T3, FreeOrdered By: Candy cheek on 06-15-2019 Free T3 [Mass/Vol] 2.83 pg/mL 2.02 - 4.43 pg/mL [employer] Phone: T4, FreeOrdered By: Candy Franco mmer on 06-15-2019 Thyroxine, Free 1.17 ng/dL 0.93 - 1.7 ng/dL [employer] Phone: TSH without ReflexOrdered By : Candy Gilbert on 06-15-2019 Interpretation and review of laboratory results Abnormal [employer] Phone: TSH Qn 35.69 m[IU]/L [employer] Work Phone: Coding Summaryon 07-25-2017 Coding Summary CODING DATE: 018 [facility] STATUS: Home PAYOR: [employer] DESCRIPTION [...] Shahla Nguyen Date Saved: 07/25/2017 01:15 pm [facility] Provider Orderson 07-24-2017 Provider Orders [id number] [facility] XR Elbow Complete Lefton XR Elbow Complete [...] ETIOLOGY AND SIGNIFICANCE. FOLLOW-UP NEEDED.ROBBIE Ervin #: [id number]: 07/23/2017T: 07/23/2017 Final Dictated by: Alistair Lockett MD SDictated DT/TM: 07/23/17 6:10Signed (Electronic Signature): Alistair Lockett MD 07/23/17 10:51 aTechnologist: TL [facility] Vital Signs Date Time Vital Sign Value Performing Clinician Facility 03-11-2025 12:13-0400 Body temperature 97.2 [degF] Constantine Sanchez MD Work Phone: [facility] 03-11-2025 12:13-0400 Diastolic blood pressure 59 mm[Hg] [facility] [employer] 03-11-2025 12:13-0400 Systolic blood pressure 113 mm[Hg] Constantine Sanchez MD [facility] [employer] 03-11-2025 12:00-0400 Heart rate 55 /min Constantine Sanchez MD [facility] [employer] 03-11-2025 12:00-0400 Respiratory rate 13 /min Constantine Sanchez MD Work Phone: [facility] [employer] 03-11-2025 12:00-0400 SaO2% (BldA) [Mass fraction] 98 % Constantine Sanchez MD Work Phone: [facility] [employer] 03-11-2025 10:05-0400 Body height 162.6 cm Constantine Sanchez MD [facility] [employer] 03-11-2025 10:05-0400 Body mass index (BMI) [Ratio] 30.86 kg/m2 Constantine Sanchez MD Work Phone: [facility] [employer] 03-11-2025 10:05-0400 Body weight 81.56 kg Constantine Sanchez MD Work Phone: [facility] [employer] 12-31-2024 14:29-0400 Body height 162.6 cm Candy Glibert PA Work Phone: [facility] 12-31-2024 14:29-0400 Body mass index (BMI) [Ratio] 30.9 kg/m2 Candy Hemmer PA Work Phone: [facility] 12-31-2024 14:29-0400 Body weight 81.65 kg Candy Hemmer PA Work Phone: [facility] 12-31-2024 14:29-0400 Diastolic blood pressure 78 mm[Hg] Candy Teresamer PA Work Phone: [facility] 12-31-2024 14:29-0400 Heart rate 65 /min Candy Hemmer PA Work Phone: [facility] 12-31-2024 14:29-0400 SaO2% (BldA) [Mass fraction] 97 % Candy Hemmer PA Work Phone: [facility] 12-31-2024 14:29-0400 Systolic blood pressure 118 mm[Hg] Candy Hemmer PA Work Phone: [facility] 11-20-2024 09:13-0400 Body height 152.4 cm Chana Hurtado MD Work Phone: [facility] 11-20-2024 09:13-0400 Body mass index (BMI) [Ratio] 35.78 kg/m2 Chana Hurtado MD Work Phone: [facility] 11-20-2024 09:13-0400 Body weight 83.1 kg Chana Hurtado MD Work Phone: [facility] 11-20-2024 09:13-0400 Diastolic blood pressure 81 mm[Hg] Chana Hurtado MD Work Phone: [facility] 11-20-2024 09:13-0400 Heart rate 51 /min Chana Hurtado MD Work Phone: [facility] 11-20-2024 09:13-0400 Respiratory rate 16 /min Chana Hurtado MD Work Phone: [facility] 11-20-2024 09:13-0400 Systolic blood pressure 135 mm[Hg] Chana Hurtado MD Work Phone: [facility] 10-14-2024 09:38-0400 Body height 162.6 cm Candy Hemmer PA Work Phone: [facility] 10-14-2024 09:38-0400 Body mass index (BMI) [Ratio] 31.34 kg/m2 Candy Hemmer PA Work Phone: [facility] 10-14-2024 09:38-0400 Body weight 82.83 kg Candy Hemmer PA Work Phone: [facility] 10-14-2024 09:38-0400 Diastolic blood pressure 72 mm[Hg] Candy Hemmer PA Work Phone: [facility] 10-14-2024 09:38-0400 Heart rate 54 /min Candy Hemmer PA Work Phone: [facility] 10-14-2024 09:38-0400 Respiratory rate 16 /min Candy Hemmer PA Work Phone: [facility] 10-14-2024 09:38-0400 SaO2% (BldA) [Mass fraction] 98 % Candy Hemmer PA Work Phone: [facility] 10-14-2024 09:38-0400 Systolic blood pressure 116 mm[Hg] Candy Hemmer PA Work Phone: [facility] 07-30-2024 15:05-0500 Body height 162.6 cm Candy Hemmer PA Work Phone: [facility] 07-30-2024 15:05-0500 Body mass index (BMI) [Ratio] 31.45 kg/m2 Candy Hemmer PA Work Phone: [facility] 07-30-2024 15:05-0500 Body weight 83.1 kg Candy Hemmer PA Work Phone: [facility] 07-30-2024 15:05-0500 Diastolic blood pressure 82 mm[Hg] Candy Hemmer PA Work Phone: [facility] 07-30-2024 15:05-0500 Heart rate 62 /min Candy Hemmer PA Work Phone: [facility] 07-30-2024 15:05-0500 Respiratory rate 16 /min Candy Hemmer PA Work Phone: [facility] 07-30-2024 15:05-0500 SaO2% (BldA) [Mass fraction] 97 % Candy Hemmer PA Work Phone: [facility] 07-30-2024 15:05-0500 Systolic blood pressure 112 mm[Hg] Candy Hemmer PA Work Phone: [facility] 03-31-2024 10:47-0400 Body height 162.6 cm Candy Hemmer PA Work Phone: [facility] 03-31-2024 10:47-0400 Body mass index (BMI) [Ratio] 31.31 kg/m2 Candy Hemmer PA Work Phone: [facility] 03-31-2024 10:47-0400 Body temperature 98.1 [degF] Candy Hemmer PA Work Phone: [facility] 03-31-2024 10:47-0400 Body weight 82.74 kg Candy Hemmer PA Work Phone: [facility] 03-31-2024 10:47-0400 Diastolic blood pressure 78 mm[Hg] Candy Hemmer PA Work Phone: [facility] 03-31-2024 10:47-0400 Heart rate 76 /min Candy Hemmer PA Work Phone: [facility] 03-31-2024 10:47-0400 Respiratory rate 16 /min Candy Hemmer PA Work Phone: [facility] 03-31-2024 10:47-0400 SaO2% (BldA) [Mass fraction] 98 % Candy Hemmer PA Work Phone: [facility] 03-31-2024 10:47-0400 Systolic blood pressure 129 mm[Hg] Candy Hemmer PA Work Phone: [facility] 08-15-2023 10:35-0500 Body mass index (BMI) [Ratio] 31.24 kg/m2 Candy Hemmer PA Work Phone: [facility] 08-15-2023 10:35-0500 Body weight 82.56 kg Candy Hemmer PA Work Phone: [facility] 08-15-2023 10:35-0500 Diastolic blood pressure 84 mm[Hg] Candy Hemmer PA Work Phone: [facility] 08-15-2023 10:35-0500 Heart rate 54 /min Candy Hemmer PA Work Phone: [facility] 08-15-2023 10:35-0500 Respiratory rate 16 /min Candy Hemmer PA Work Phone: [facility] 08-15-2023 10:35-0500 SaO2% (BldA) [Mass fraction] 99 % Candy Hemmer PA Work Phone: [facility] 08-15-2023 10:35-0500 Systolic blood pressure 132 mm[Hg] Candy Teresamer PA Work Phone: [facility] 02-02-2022 07:00-0400 Body temperature 98.2 [degF] Ino Brothers DO Work Phone: [facility] 02-02-2022 07:00-0400 Diastolic blood pressure 70 mm[Hg] Ino Cadenabaum DO Work Phone: [facility] 02-02-2022 07:00-0400 Heart rate 66 /min Ino Brothers DO Work Phone: [facility] 02-02-2022 07:00-0400 Respiratory rate 16 /min Ino Brothers DO Work Phone: [facility] 02-02-2022 07:00-0400 Systolic blood pressure 124 mm[Hg] Ino Brothers Work Phone: [facility] 02-02-2022 02:50-0400 SaO2% (BldA) [Mass fraction] 94 % Ino Zev DO Work Phone: [facility] 02-01-2022 06:23-0400 Body height 162.6 cm Ino Brothers Work Phone: [facility] 02-01-2022 06:23-0400 Body mass index (BMI) [Ratio] 34.16 kg/m2 Ino Brothers Work Phone: [facility] 02-01-2022 06:23-0400 Body weight 90.27 kg Ino Brothers DO Work Phone: [facility] [email or web address] 01-22-2022 12:11-0400 Body height 162.6 cm [facility] [employer] 01-22-2022 12:11-0400 Body mass index (BMI) [Ratio] 34.16 kg/m2 [facility] [email or web address] 01-22-2022 12:11-0400 Body temperature 97.7 [degF] [facility] [employer] 01-22-2022 12:11-0400 Body weight 90.27 kg [facility] [email or web address] 01-22-2022 12:11-0400 Diastolic blood pressure 77 mm[Hg] [facility] 2 [facility] [email or web address] 01-22-2022 12:11-0400 Heart rate 63 /min [facility] [employer] [employer] 01-22-2022 12:11-0400 Respiratory rate 16 /min [facility] [employer] 01-22-2022 12:11-0400 SaO2% (BldA) [Mass fraction] 100 % [facility] 2 [facility] 01-22-2022 12:11-0400 Systolic blood pressure 131 mm[Hg] [facility] 2 [facility] [email or web address] 09-29-2021 10:35-0400 Body temperature 97.5 [degF] Constantine Sanchez MD Work Phone: [facility] 09-29-2021 10:35-0400 Diastolic blood pressure 58 mm[Hg] Constantine Sanchez MD Work Phone: [facility] 09-29-2021 10:35-0400 Heart rate 58 /min Constantine Sanchez MD Work Phone: [facility] 09-29-2021 10:35-0400 Respiratory rate 12 /min Constantine Sanchez MD Work Phone: [facility] 09-29-2021 10:35-0400 SaO2% (BldA) [Mass fraction] 98 % Constantine Sanchez MD Work Phone: [facility] 09-29-2021 10:35-0400 Systolic blood pressure 92 mm[Hg] Constantine Sanchez MD Work Phone: [facility] 09-29-2021 07:46-0400 Body height 160 cm Constantine Sanchez MD Work Phone: [facility] 09-29-2021 07:46-0400 Body mass index (BMI) [Ratio] 34.37 kg/m2 Constantine Sanchez MD Work Phone: [facility] 09-29-2021 07:46-0400 Body weight 88 kg Constantine Sanchez MD Work Phone: [facility] 09-15-2021 10:28-0500 Body height 160 cm [facility] Encounter Date Encounter Type Care Provider Facility Start: 03-11-2025 End: 03-16-2025 Clinisync Result Encounter Generic External Data Provider [facility] External Department Unsolicited Start: 03-11-2025 End: 03-16-2025 Clinisync Result Encounter Generic External Data Provider [facility] External Department Unsolicited Start: 03-11-2025 End: 03-11-2025 ambulatory CANDY GILBERT [facility] Start: 03-11-2025 End: 03-11-2025 Subsequent hospital [...] with diarrhea; Schatzki's ring of distal esophagus; Mercer-Walker grade 3 cystocele; Cystocele, midline; Enlarged uterus; [...] Start: 11-24-2024 End: 11-24-2024 amb[facility] Start: 11-24-2024 End: 11-24-2024 Encounter for gynecological examination (general) (routine) without abnormal findings CANDY M [facility] Start: 11-24-2024 End: 11-24-2024 Subsequent hospital visit by physician Candy Gilbert PA-C Work Phone: [facility] Start: 11-20-2024 End: 11-20-2024 Office outpatient new 45 minutes Chana Hurtado MD Work Phone: [facility] Comment on above: Acquired hypothyroid ism (Primary Dx) Start: 11-20-2024 End: 12-16-2024 ambulatory CHANA HURTADO [facility] Start: 10-14-2024 End: 10-14-2024 Bamboo flowsheet [...] Not Available Start: 10-13-2024 End: 10-13-2024 ambulatory [facility] Start: 08-20-2024 ambulatory [facility] Facility:[facility] Start: 08-20-2024 End: 08-20-2024 Subsequent hospital visit by physician [facility] 3 (Istat/1.5t) Work Phone: [facility] Start: 08-04-2024 End: 08-04-2024 ambulatory [facility] Start: 07-30-2024 End: 07-30-2024 Office outpatient visit [...] Department Unsolicited Start: 06-24-2024 End: 06-24-2024 ambulatory [facility] Start: 05-20-2024 End: 05-20-2024 ambulatory [facility] Start: 04-24-2024 End: 04-26-2024 ambulatory SAMANTHA A BEAM [facility] Start: 04-24-2024 End: 04-26-2024 Subsequent hospital visit by physician [facility] Comment on above: Encounter for [...] with diarrhea; Schatzki's ring of distal esophagus; Mercer-Walker grade 3 cystocele; Cystocele, midline; Enlarged uterus; [...] Subsequent hospital visit by physician Austin Hopson [facility] Comment on above: Post-menopausal Start: 02-01-2022 End: 02-02-2022 Evaluation and management of inpatient Ino Brothers DO Work Phone: [facility] Comment on above: Cystocele, unspecifi ed (CODE) Start: 01-22-2022 End: 01-24-2022 Subsequent hospital visit by physician Austin Xr Room 4 [facility] Comment on above: Arrived Start: 01-22-2022 End: 01-26-2022 Patient encounter status St[facility] 2 [facility] Pre-Admit Testing Start: 01-22-2022 End: 01-26-2022 Subsequent hospital visit by physician Mamta Jeronimo Rm 2 [facility] Pre-Admit Testing Comment on above: Pre-op testing Start: 12-27-2021 End: 12-27-2021 Subsequent hospital visit by physician Candy Gilbert Work Phone: [facility] Laboratory Comment on above: Overflow incontinenc e Start: 12-25-2021 End: 12-27-2021 Subsequent hospital visit by physician [facility] Mammo Rm 119 [facility] Comment on above: Encounter [...] 12-16-2020 Subsequent hospital visit by physician [facility] Mammo Rm 119 [facility] Comment on above: Visit for screening mammogram Start: 06-15-2019 End: 06-15-2019 Subsequent hospital visit by physician Candy Gilbert Work Phone: Laboratory Start: 07-23-2017 End: 07-23-2017 Ambulatory CANDY GILBERT Facility:[facility] Procedures Date Procedure Procedure Detail Performing Clinician [...] RSV Vaccine (1 - 1-dose 75+ series) [facility] Start: 09-30-2031 Screening for malignant neoplasm of colon [facility] Start: 11-24-2029 Screening for malignant neoplasm of cervix [facility] Start: 01-21-2028 Screening for malignant neoplasm of colon [facility] Start: 11-25-2027 Screening for malignant neoplasm of cervix Pap Smear [facility] Start: 11-22-2027 Screening for malignant neoplasm of cervix [facility] Start: 04-24-2026 Screening for malignant neoplasm of breast Breast cancer screen [facility] Start: 11-24-2025 Depression Screen Depression Screen [facility] Start: 11-24-2025 End: 11-24-2025 Patient encounter procedure 11/24/2025 9:00 AM EDT Off ice Visit [facility] Obstetrics & Gynecology [address] [facility] [address] [address] [place] [phone] Samantha Weaver APRN - CNP [address] [address] [place] [address] annual [facility] Ob[facility]etrics & Gynecology Comment on above: annual Start: 11-21-2025 Screening for malignant neoplasm of cervix Pap Smear [facility] Start: 09-05-2025 Lipid panel Lipids [facility] Start: 06-21-2025 End: 06-21-2025 Patient encounter procedure [facility] Start: 04-26-2025 End: 04-26-2025 Patient encounter procedure 04/26/2025 2:45 PM EDT Appointment [facility] [address] [facility] [address] [place] [address] Epic sched w/ Pt [facility] Comment on above: Epic sched w/ Pt Start: 04-24-2025 Screening for malignant neoplasm of breast [facility] Healthcare Start: 04-12-2025 Screening for malignant neoplasm of breast Breast cancer screen [facility] Start: 04-08-2025 End: 04-08-2025 Admission to same day surgery center 04/08/2025 12:00 PM EDT - 04/08/2025 12:30 PM EDT Surgery [facility] [address] [place] [address] Constantine Sanchez MD [address] [place] [address] [id number] ESOPHAGOGASTRODUODENOSCOPY BIOPSY [facility] OR Comment on above: ESOPHAGOGASTRODUODENOSCOPY BIOPSY Start: 04-08-2025 End: 04-08-2025 Egd transoral biopsy single/multiple ESOPHAGOGASTRODUODENOSCOPY BIOPSY EE (eosinophilic esophagitis) Diverticulosis of colon Weight loss Gastric mass GERD (gastroesophageal reflux disease) 04/08/2025 12:00 PM EDT [facility] Start: 04-08-2025 Subsequent hospital visit by physician 04/08/2025 12:00 PM EDT Hospital Encounter [facility] [address] [place] [address] Constantine Sanchez MD [address] [place] [id number] [facility] Start: 03-08-2025 COVID-19 Vaccine ( season) COVID-19 Vaccine ( season) [facility] Start: 03-08-2025 Influenza vaccination [facility] Start: 02-05-2025 Influenza vaccination Flu vaccine (#1) [facility] Start: 01-22-2025 Diabetes Screening Diabetes Screening [facility] Start: 12-31-2024 End: 12-31-2024 Patient encounter procedure 12/31/2024 2:30 PM EDT [place] Visit [facility] [address] [facility] [address] [place] [id number] Candy Gilbert PA [address] [facility] [address] [place] [address] Arrived [facility] Comment on above: Arrived Start: 11-24-2024 Depression Screen Depression Screen [facility] Start: 11-24-2024 End: 11-24-2024 Patient encounter procedure 11/24/2024 9:00 AM EDT Off ice Visit [facility] Obstetrics & Gynecology [address] [facility] [address] [place] [phone] Samantha Weaver APRN - CNP [address] [facility] [address] [address] [place] [address] annual [facility] Obstetrics & Gynecology Comment on above: annual Start: 11-23-2024 Screening for malignant neoplasm of cervix [facility] Start: 10-14-2024 End: 10-14-2025 Alpha fetoprotein, L3 percent Alpha fetoprotein, L3 pe rcent Lab Routine Abnormal finding on imaging of liver Hepatic lesion Expected: 10/14/2024 (Approximate), Expires: 10/14/2025 [facility] Comment on above: Expected: 10/14/2024 (Approximate), Expi res: 10/14/2025 Start: 10-14-2024 End: 10-14-2025 Cobalamin (Vitamin B12) [Mass/volume] in Serum or Plasma Vitamin B12 Lab Routine Vitamin B-complex deficiency Expected: 10/14/2024 (Approximate), Expires: 10/14/2025 [facility] [employer] Comment on above: Expected: 10/14/2024 (Approximate), Expi res: 10/14/2025 Start: 10-14-2024 End: 10-14-2025 Creatinine [Mass/volume] in Serum or Plasma Creatinine, Serum Lab Routine Abnormal finding on imaging of liver Hepatic lesion Hypokalemia Expected: 10/14/2024 (Approximate), Expires: 10/14/2025 [facility] Comment on above: Expected: 10/14/2024 (Approximate), Expi res: 10/14/2025 Start: 10-14-2024 End: 10-14-2025 CT Abdomen and Pelvis W contrast IV CT abdomen pelvis w IV contrast Imaging Routine Abnormal finding on imaging of liver Hepatic lesion Expected: 10/14/2024, Expires: 10/14/2025 [facility] Work Phone: Comment on above: Expected: 10/14/2024, Expires: Start: 10-14-2024 End: 10-14-2024 Patient encounter procedure 10/14/2024 9:30 AM EDT Off ice Visit [facility] [address] [place] [address] Candy Gilbert PA [address] [place] [address] Arrived [facility] Comment on above: Arrived Start: 10-01-2024 Administration of varicella zoster vaccine Zoster (Shingles) Vaccine (2 of 3) [facility] Start: 09-29-2024 Screening for malignant neoplasm of colon [facility] Start: 07-30-2024 End: 07-30-2024 Patient encounter procedure 07/30/2024 3:00 PM EST Off ice Visit [facility] [address] [place] [phone] Candy Gilbert PA [address] [place] [address] Arrived [facility] Comment on above: Arrived Start: 07-30-2024 End: 07-30-2025 XR Thoracic spine 4 Views XR thoracic spine complete 4 + views Imaging Routine 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 or radiculopathy Thoracic spine pain Expected: 07/30/2024, Expires: 07/30/2025 [facility] Work Phone: Comment on above: Expected: 07/30/2024, Expires: Start: 04-12-2024 Screening for malignant neoplasm of breast Mammogram [facility] Start: 03-31-2024 End: 03-31-2025 Holter monitor study Holter monitor Imaging Routi ne Palpitation Shortness of breath Expected: 03/31/2024 (Approximate), Expires: 03/31/2025 [facility] Work Phone: Comment on above: Expected: 03/31/2024 (Approximate), Expi res: 03/31/2025 Start: 03-08-2024 COVID-19 Vaccine () COVID-19 Vaccine ( season) [facility] Start: 03-08-2024 Covid-19 Vaccine ( season) Covid-19 Vaccine () [facility] Start: 03-08-2024 Influenza vaccination Influenza Vaccine (#1) [facility] Start: 02-13-2024 End: 02-13-2024 Patient encounter procedure 02/13/2024 10:00 AM EDT Of fice Visit [facility] [address] [facility] [address] [place] [address] Candy Gilbert PA [address] [facility] [address] [place] [address] [facility] Start: 02-06-2024 Influenza vaccination Flu vaccine (#1) [facility] Start: 01-22-2024 DTaP,Tdap and Td Vaccines (2 - Td or Tdap) DTaP,Tdap and Td Vaccines (2 - Td or Tdap) [facility] Start: 01-22-2024 DTaP/Tdap/Td vaccine (2 - Td or Tdap) DTaP/Tdap/Td vaccine (2 - Td or Tdap) [facility] Start: 01-22-2024 Urine microalbumin profile DTaP,Tdap,Td Vaccine (2 - T d or Tdap) [facility] Start: 12-26-2023 Screening for malignant neoplasm of breast Breast cancer screen [facility] Start: 09-26-2023 End: 08-15-2024 Triiodothyronine (T3) Free [Mass/volume] in Serum or Plasma T3, free Lab Routine Acquired hypothyroidism (CMS/HCC) 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) Expected: 09/26/2023 (Approximate), Expires: 08/15/2024 [facility] Comment on above: Expected: 09/26/2023 (Approximate), Expi res: 08/15/2024 Start: 09-19-2023 End: 08-15-2024 Thyrotropin [Units/volume] in Serum or Plasma TSH Lab Routine Acquired hypothyroidism (CMS/HCC) 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) Expected: 09/19/2023 (Approximate), Expires: 08/15/2024 [facility] Comment on above: Expected: 09/19/2023 (Approximate), Expi res: 08/15/2024 Start: 09-19-2023 End: 08-15-2024 Thyroxine (T4) free [Mass/volume] in Serum or Plasma T4, free Lab Routine Acquired hypothyroidism (CMS/HCC) 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) Expected: 09/19/2023 (Approximate), Expires: 08/15/2024 [facility] Comment on above: Expected: 09/19/2023 (Approximate), Expi res: 08/15/2024 Start: 08-15-2023 End: 08-15-2024 25-hydroxyvitamin D3 [Mass/volume] in Serum or Plasma Vitamin D 25 hydroxy Lab Routine Wellness examination Vitamin D deficiency Expected: 08/15/2023 (Approximate), Expires: 08/15/2024 [facility] Comment on above: Expected: 08/15/2023 (Approximate), Expi res: 08/15/2024 Start: 08-15-2023 End: 08-15-2024 CBC W Auto Differential panel - Blood CBC and differential Lab Routine Wellness examination Other specified disorders involving the immune mechanism, 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) Bruises easily Chronic fatigue Expected: 08/15/2023 (Approximate), Expires: 08/15/2024 [facility] Work Phone: Comment on above: Expected: 08/15/2023 (Approximate), Expi res: 08/15/2024 Start: 08-15-2023 End: 08-15-2024 Cobalamin (Vitamin B12) [Mass/volume] in Serum or Plasma Vitamin B12 Lab Routine Wellness examination Vitamin B-complex deficiency Expected: 08/15/2023 (Approximate), Expires: 08/15/2024 [facility] Comment on above: Expected: 08/15/2023 (Approximate), [...] 07-28-2023 Screening for malignant neoplasm of cervix [facility] Start: 04-23-2023 Adult BMI Screening Adult BMI Screening [facility] Start: 03-08-2023 Influenza vaccination Influenza Vaccine (#1) [facility] Start: 12-14-2022 Screening for malignant neoplasm of breast Breast cancer screen [facility] Start: 2022 Respiratory Syncytial Virus (RSV) or age 60 yrs+ (1 - 1-dose 60+ series) Respiratory Syncytial Virus (RSV) or age 60 yrs+ (1 - 1-dose 60+ series) [facility] Start: 2022 Respiratory Syncytial Virus (RSV) or age 60 yrs+ (1 - Risk 60-74 years 1-dose series) Respiratory Syncytial Virus (RSV) or age 60 yrs+ (1 - Risk 60-74 years 1-dose series) [facility] Start: 07-24-2022 End: 07-24-2022 Patient encounter procedure 07/24/2022 Office Visit Obstetrics and Gynecology Ino Brothers, [address] [place] [phone] [facility] Start: 06-22-2022 End: 06-22-2022 Patient encounter procedure 06/22/2022 Office Visit Urology Samy Resendez MD [address] [place] [address] [facility] Start: 03-08-2022 Influenza vaccination [facility] Start: 02-20-2022 End: 02-20-2022 Patient encounter procedure 02/20/2022 Office Visit Obstetrics and Gynecology Ino Brothers, [address] [place] [id number] [facility]cology Start: 02-01-2022 End: 02-01-2022 Admission to same day surgery center 02/01/2022 Surgery IP Unit Ino Brothers DO [address] [place] [id number] VAGINAL ANTERIOR REPAIR [facility] OR Comment on above: VAGINAL ANTERIOR REPAIR Start: 02-01-2022 End: 02-01-2022 Anterior colporraphy rpr cystocele w/cysto VAGINAL ANTERIOR REPAIR Cystocele, unspecified (CODE) 02/01/2022 8:00 AM EDT [facility] Start: 02-01-2022 Subsequent hospital visit by physician 02/01/2022 Hospital Encounter IP Unit Ino Brothers DO [address] [facility], [address] [place], [place] [id number] [facility] Start: 12-29-2021 End: 12-29-2021 Patient encounter procedure 12/29/2021 Office Visit Urology Samy Resendez MD [address] [place], [place] [phone] [facility] Start: 09-29-2021 End: 09-29-2021 Admission to same day surgery center 09/29/2021 Surgery Endoscopy Constantine Sanchez MD [facility] [facility], [address] [place] [address] EGD [facility] Comment on above: EGD Start: 09-29-2021 End: 09-29-2021 Colonoscopy flx dx w/collj spec when pfrmd [facility] Start: 09-29-2021 End: 09-29-2021 Esophagogastroduodenoscopy transoral diagnostic [facility] Start: 09-29-2021 Subsequent hospital visit by physician 09/29/2021 Hospital [place]counter [place] [address] [place] [address], [address] [place], [place] [id number] [facility] Start: 09-25-2021 End: 09-22-2022 COVID-19 [facility] Work Phone: Comment on above: Expected: 09/25/2021, Expires: 3 Once for 1 Occurrenc es starting 09/25/2021 until 09/25/2021 Start: 09-25-2021 End: 09-25-2021 Patient encounter procedure 09/25/2021 Appointment Lab [facility] Cov[facility] Screening Start: 07-28-2021 Screening for malignant neoplasm of cervix [facility] Start: 03-08-2021 [facility] Start: 01-20-2021 Colon cancer screen colonoscopy Colon cancer screen colonoscopy [employer] Phone: Start: 01-20-2021 Screening for malignant neoplasm of colon [facility] Start: 08-11-2020 Breast cancer screen Breast cancer screen [employer] Phone: Start: 06-15-2020 Thyroid stimulating hormone measurement [facility]SH testing [facility] Start: 01-15-2020 TSH testing TSH testing [employer] Phone: Start: 07-28-2019 Cervical cancer screen Cervical cancer screen [employer] Phone: Start: 07-28-2019 Screening for malignant neoplasm of cervix Cervical cancer screen [employer] Phone: Start: 03-08-2019 Influenza vaccination Flu vaccine (#1) [employer] Phone: Start: 01-20-2019 Screening for malignant neoplasm of colon [facility] Start: 11-16-2018 Diabetes screen Diabetes screen [facility] [employer] Start: 2012 Pneumococcal 50+ years Vaccine (1 of 1 - PCV) Pneumococcal 50+ years Vaccine (1 of 1 - PCV) [facility] [employer] Start: 2012 Pneumococcal Vaccine: 50+ (1 of 1 - PCV) Pneumococcal Vaccine: 50+ (1 of 1 - PCV) [facility] Start: 2012 Shingles Vaccine (1 of 2) Shingles Vaccine (1 of 2) [facility] Start: 2012 Shingrix Vaccine (1 of 2) Shingrix Vaccine (1 of 2) [facility] Start: 10-29-2007 Lipid panel Lipid Screening [facility] Start: 10-29-2007 Screening for malignant neoplasm of colon [facility] [employer] Start: 2002 Lipid panel [facility] [employer] Start: 2002 Lipid screen [facility] Start: 1981 DTaP/Tdap/Td vaccine (1 - Tdap) DTaP/Tdap/Td vaccine (1 - Tdap) [employer] Phone: Start: 1980 Adult BMI Follow Up Plan Adult BMI Follow Up Plan [facility] Start: 1980 Anxiety Screening Anxiety Screening [facility] Start: 1980 Depression Screening Depression Screening [facility] Start: 1980 Hepatitis C screening Hepatitis C Screening [facility] Start: 1980 HIV screening HIV Screening [facility] Start: 1974 COVID-19 Vaccine (1) COVID-19 Vaccine (1) [employer] Phone: Start: 1974 Depression Screen Depression Screen [facility] [employer] Start: 1974 Depression Screening Depression Screening [facility] Start: 1974 Tobacco Screening Tobacco Screening [facility] [employer] Start: 1973 DTaP/Tdap/Td vaccine (1 - Tdap) DTaP/Tdap/Td vaccine (1 - Tdap) [employer] Phone: Start: 10-29-1967 COVID-19 Vaccine (1) COVID-19 Vaccine (1) [facility] Start: 04-29-1963 COVID-19 Vaccine (#1) COVID-19 Vaccine (#1) [facility] [employer] Start: 1962 Screening for malignant neoplasm of colon [facility] 25-hydroxyvitamin D3 [Mass/volume] in Serum or Plasma Vitamin D 25 hydroxy Total Lab Routine Vitamin D deficiency Ordered: 10/14/2024 [facility] Comment on above: Ordered: 10/14/2024 End: 03-12-2025 Blood glucose - POCT Blood glucose - POCT Point o f Care Testing Routine One Time for 1 Occurrences starting 03/12/2025 until 03/12/2025 [employer] Comment on above: One Time for 1 Occurrences starting 11/2024 until 03/12/2025 CBC W Auto Different ial panel - Blood CBC and differential Lab Routine Vitamin B-complex deficiency Elevated LDL cholesterol level (CMS/HCC) PSVT (paroxysmal supraventricular tachycardia) (CMS/HCC) Ordered: 10/14/2024 [facility] Comment on above: Ordered: 10/14/2024 Comprehensive metabo lic 2000 panel - Serum or Plasma Comprehensive metabolic panel Lab Routine Abnormal finding on imaging of liver Hepatic lesion Hypokalemia Elevated LDL cholesterol level (CMS/HCC) PSVT (paroxysmal supraventricular tachycardia) (CMS/HCC) Ordered: 10/14/2024 [facility] Comment on above: Ordered: 10/14/2024 End: 04-24-2024 DBT Breast - bilateral screening [employer] Comment on above: 1 Occurrences starting 04/24/2024 until 04/24/2024 End: 09-29-2021 INITIATE PACU OXYGEN THERAPY PROTOCOL Initiate PACU Oxygen Therapy Protocol Respiratory Care Routine Continuous until discontinued starting 09/29/2021 [employer] Phone: Comment on above: Continuous until discontinued starting 0 09/29/2021 End: 02-01-2022 INITIATE PACU OXYGEN THERAPY PROTOCOL Initiate PACU Oxygen Therapy Protocol Respiratory Care Routine Continuous until discontinued starting 02/01/2022 [employer] Phone: Comment on above: Continuous until discontinued starting 0 02/01/2022 Lipid 1996 panel - S nell or Plasma Lipid panel Lab Routine Elevated LDL cholesterol level (CMS/HCC) PSVT (paroxysmal supraventricular tachycardia) (CMS/HCC) Ordered: 10/14/2024 [employer] Comment on above: Ordered: 10/14/2024 Oxygen therapy [Mini mum Data Set] Initiate Oxygen Therapy Protocol Respiratory Care Routine As Needed until discontinued starting 09/29/2021 [employer] Phone: Comment on above: As Needed until discontinued starting Oxygen therapy [Mini mum Data Set] Initiate Oxygen Therapy Protocol Respiratory Care Routine As Needed until discontinued starting 02/01/2022 [employer] Phone: Comment on above: As Needed until discontinued starting Oxygen therapy [Mini mum Data Set] Initiate Oxygen Therapy Protocol Respiratory Care Routine As Needed until discontinued starting 03/11/2025 [employer] Phone: Comment on above: As Needed until discontinued starting Pathology study Surgical Patholo gy Lab Routine EE (eosinophilic esophagitis) Diverticulosis of colon Weight loss Release Upon Ordering for 1 Occurrences starting 03/11/2025 [employer] Comment on above: Release Upon Ordering for 1 Occurrences starting 03/11/2025 Surgical Pathology Surgical Path ology Lab Routine Release Upon Ordering for 1 Occurrences starting 09/29/2021 [employer] Phone: Comment on above: Release Upon Ordering for 1 Occurrences starting 09/29/2021 Surgical Pathology Surgical Path ology Lab Routine Cystocele, unspecified (CODE) Release Upon Ordering for 1 Occurrences starting 02/01/2022 [employer] Phone: Comment on above: Release Upon Ordering for 1 Occurrences starting 02/01/2022 End: 02-01-2022 SURGICAL PATHOLOGY REPORT SURGICAL PATHOLOGY REPORT La b Routine Once for 1 Occurrences starting 02/01/2022 until 02/01/2022 [employer] Phone: Comment on above: Once for 1 Occurrences starting 02/02/20 22 until 02/01/2022 End: 06-15-2019 Thyroid Stimulating Receptor Antibody Thyroid Stimulating Receptor Antibody Lab Routine Once for 1 Occurrences starting 06/15/2019 until 06/15/2019 [employer] Phone: Comment on above: Once for 1 Occurrences starting 06/15/20 19 until 06/15/2019 Thyroid Stimulating Receptor Antibody Thyroid Stimulating Receptor Antibody Lab Routine 06/15/2019 11:37 AM EST [employer] Phone: End: 11-20-2025 Thyrotropin [Units/volume] in Serum or Plasma TSH Lab Routine Acquired hypothyroidism 6 weeks for 6 Occurrences starting 11/20/2024 until 11/20/2025 [employer] Comment on above: 6 weeks for 6 Occurrences starting 11/20 until 11/20/2025 End: 11-20-2025 Thyroxine (T4) free [Mass/volume] in Serum or Plasma T4, free Lab Routine Acquired hypothyroidism 6 weeks for 6 Occurrences starting 11/20/2024 until 11/20/2025 [employer] Comment on above: 6 weeks for 6 Occurrences starting 11/20 until 11/20/2025 End: 11-20-2025 Triiodothyronine (T3) Free [Mass/volume] in Serum or Plasma T3, free Lab Routine Acquired hypothyroidism 6 weeks for 6 Occurrences starting 11/20/2024 until 11/20/2025 [employer] Phone: Comment on above: 6 weeks for 6 Occurrences starting 11/20 until 11/20/2025 TSH W/REFLEX TO FT4 TSH W/REFLEX TO FT4 Lab Routine Acquired hypothyroidism ([facility]/HCC) Ordered: 10/14/2024 [facility] Comment on above: Ordered: 10/14/2024 End: 03-12-2025 Urine , POCT Urine , POCT Point of Care Testing Routine One Time for 1 Occurrences starting 03/12/2025 until 03/12/2025 [employer] Comment on above: One Time for 1 Occurrences starting 11/2024 until 03/12/2025 Immunizations Immunization Date Immunization Notes Care Provider [facility] 08-06-2024 zoster vaccine, unspecified formulation Chana Hurtado MD Work Phone: [facility] [employer] [facility] 06-25-2024 influenza virus vaccine, unspecified formulation Chana Hurtado MD Work Phone: [facility] 01-21-2014 tetanus toxoid, redu sukhdev diphtheria toxoid, and acellular pertussis vaccine, adsorbed Candy Hemmer Work Phone: [facility] [employer] Work Phone: Payers Date Payer Category Payer Unknown [id number] [address] [facility] [id number] [facility] Managed Care - Other ANTHEM [id number] 2018 Unknown BCBS BCBS xxxxxx [id number] 2018-Present [phone] [address] [place] [address] [id number] 2018 Unknown [id number] 2016 Unknown [id number] 2016 Unknown [place] - [place] P PO xxxxxxxxxxxxxxx 2016-Present [address] [place] [address] xxxxxxxxxxxxxxx [id number] 1962 Unknown [id number] 1962 Unknown [id number] 1962 Unknown [id number] 1962 Unknown [id number] 1962 Unknown [id number] 1962 Unknown [id number] 1962 Unknown [id number] 1962 Unknown [id number] 1962 Unknown [id number] 1962 Unknown [id number] 75 Social History Date Type Detail Facility Start: 12-14-2020 End: 01-01-2023 Tobacco smoking status NHIS Never smoker [employer] Phone: Start: 12-14-2020 End: 01-01-2023 Tobacco use and exposure Never used [facility] Start: 12-14-2020 End: 11-20-2024 Alcohol intake Current non-drinker of alcohol (finding) [employer] Phone: Start: 12-14-2020 End: 12-19-2022 Alcohol intake [facility] Start: 1960 Sex Assigned At Not on file [employer] Phone: Start: 08-16-2021 End: 02-01-2022 Exposure to SARS-CoV-2 (event) Not sure [employer] Phone: Start: 07-10-2023 End: 12-31-2024 Alcohol intake Ex-drinker (finding) [facility] Start: 12-19-2022 End: 10-14-2024 Humiliation, Afraid, Rape, and Kick questionnaire [HARK] [facility] Within the last year , have you been afraid of your partner or ex-partner? Patient refused [facility] Are you now , , , , never or living with a partner? [facility] Start: 02-08-2023 Alcohol Comment Caffeine intake: coffeee [facility] Start: 04-24-2024 End: 03-11-2025 Alcoholic beverage intake Lifetime non-drinker (finding) Mele Portillo [facility] [employer] Start: 11-21-2022 Tobacco Comment I have answered this countless times. [facility] [employer] [facility] Start: 12-21-2021 Gender identity Identifies as female gender (finding) [facility] Tobacco smoking stat [facility] Tobacco smoking consumption unknown [facility] Do you belong to any clubs or organizations such as jain groups, unions, fraternal or athletic groups, or school groups? Yes [facility] How often to you hav e a drink containing alcohol? Never [facility] Do you feel stress - tense, restless, nervous, or anxious, or unable to sleep at night because your mind is troubled all the time - these days [OSQ] Not at all [facility] Start: 08-17-2012 End: 02-10-2015 Sex Female (finding) [facility] [employer] [facility] Goals Date Patient Goal Desired Activity [...] Where can you learn more? Go to [email or web address] and sign in to your Guide account. Enter J454 in the Search Health Information box to learn more about Upper GI Endoscopy: What to Expect at Home. If you do not have an account, please click on the Sign Up Now link. [employer]. Care instructions adapted under license by [employer]. This care instruction is for use with your licensed healthcare professional. If you have questions about a medical condition or this instruction, always ask your healthcare professional. [employer] disclaims any warranty or liability for your use of this information. Content Version: 9.9.158019; Last Revised: August 27, 2012 documented in this encounter [facility] 12-31-2024 History of Present illness Narrative Images [...] morning and 25 mg before bedtime. thyroid (Milton) 60 MG tablet Take 60 mg by [...] with diarrhea Schatzki's ring of distal esophagus Mercer-Walker grade 3 cystocele Cystocele, midline Enlarged uterus [...] 07/02/2025) for Recheck. documented in this encounter [facility] 12-10-2024 Telephone encounter Note Called TB lab, AFP is pending, Vit B12 is resulted and they will fax it over. [facility] 12-10-2024 Miscellaneous Notes Called TB lab, AFP is pending, Vit B12 is resulted and they will fax it over. documented in this encounter [facility] 11-20-2024 History of Present illness Narrative REASON FOR VISIT: Chester Negro is seen in initial consultation today for Hypothyroidism. HPI: Patient reports being diagnosed with hypothyroidism at age 20 and has been on thyroid hormone replacement since. She had been on CIRCULATING NURSE Thyroid in the remote past and overall [...] Sent to Testing to be performed at [facility]. COVID-19 [facility] Report to Follow. SARS COV 2 [...] fact that patient has felt better on Milton thyroid in the past, I will switch levothyroxine to a combination of Milton thyroid plus levothyroxine. I am starting her on 60 mg Milton thyroid along with 50 mcg levothyroxine and repeat thyroid labs in 6 weeks time. Will keep adjusting levothyroxine dose based on q.6 weeks lab results. We discussed holding biotin supplements for 3 days prior to thyroid lab draw. We discussed the importance of taking thyroid hormone replacement on an empty stomach and very consistently. RETURN TO CLINIC: 6 months documented in this encounter [employer] 10-14-2024 History of Present illness Narrative Images [...] been having weight loss without trying and social worker delinquency prevention is concerned. Current Outpatient Medications on File [...] FT4 Seeing Endocrinology on November 20 in [place], Dr. Chana Hurtado. Her TSH has been [...] Lipid panel The patient is seeing a front office medical assistant for this condition, treatment is deferred to that specialist. Correspondence from that specialist and any available testing were reviewed during today's visit. Tubular adenoma Patient has contacted Dr. Constantine Sanchez's office in [place], will getting an updated Colonoscopy, scheduled to see him in December, but is on a cancellation list. Follow up for Wellness. documented in this encounter [facility] 10-13-2024 Note [place] [facility] Reason for visit: Palpitations/shortness of [...] the past and had been evaluated at [facility] also. She had initially battled COVID infection [...] Use: Not At Risk (04/05/2021) Received from Room 21 Media AUDIT-C Frequency of Alcohol Consumption: Never Average Number of Drinks: Not on file Frequency of Binge Drinking: Never Financial Resource Strain: Low Risk (04/05/2021) Received from Room [facility] Media Overall Financial Resource Strain (CARDIA) Difficulty of Paying Living Expenses: Not hard at all Food Insecurity: Not on file Transportation Needs: No Transportation Needs (04/05/2021) Received from Room [facility] PRAPARE - Transportation Lack of Transportation (Medical): No Lack of Transportation (Non-Medical): No Physical Activity: Unknown (12/19/2022) Received from [employer] Exercise Vital Sign Days of Exercise per Week: 6 days Minutes of Exercise per Session: Not on file Stress: No Stress Concern Present (04/05/2021) Received from Room 21 Media [employer] [place] [employer] - Occupational Stress Questionnaire Feeling of Stress : Not at all Social Connections: Unknown (12/19/2022) Received from [employer] Social Connection and Isolation Panel [NHANES] Frequency of Communication with Friends and Family: Not on file Frequency of Social Gatherings with Friends and Family: Not on file Attends Rastafari Services: Not on file Active Member of Clubs or Organizations: Patient declined Attends Club or Organization Meetings: Patient declined Marital Status: Intimate Partner Violence: Unknown (08/29/2023) [place] Safety & Environment Fear of Current or Ex-Partner: Not on file Emotionally Abused: Not on file Physically Abused: Not on file Sexually Abused: Not on file Physically or Sexually Abused: Not on file Depression: Not at risk (07/30/2024) Received from [facility] PHQ-2 Patient Health Questionnaire-2 Score: 0 [...] daily. 60 tabl (more content not included)... [facility] 08-20-2024 History of Present illness Narrative [...] PATIENT PRESENTS WITH AN IMPLANTABLE OR ATTACHED GUN PROFILER: No RADIOLOGY DEPARTMENT: MR; Exam(s) Completed: Cardiac: Cardiac PERIPHERAL IV DATA: Site assessment: Clean,Dry and Intact, Site disposition Discontinued pt sts no allergy to contrast SIGNED BY: RT Amy(R) August 20, 2024 11:29 AM documented in this encounter [facility] 08-20-2024 Note HNO ID: [id number] Author: KARLENE WASHBURN RN Service: Radiology Author [...] Chloride. Patient screened negative for MRI incompatibilities. [facility] 08-20-2024 Note HNO ID: [id number] Author: DENICE FOURNIER RT(R) Service: Radiology Author Type: Pump Station Operator Type: Progress Notes Filed: 08/20/2024 11:30 Note [...] PATIENT PRESENTS WITH AN IMPLANTABLE OR ATTACHED GUN PROFILER: No RADIOLOGY DEPARTMENT: MR; Exam(s) Completed: Cardiac: Cardiac PERIPHERAL IV DATA: Site assessment: Clean,Dry and Intact, Site disposition Discontinued pt sts no allergy to contrast SIGNED BY: Denice Fournier RT(R) August 20, 2024 11:29 AM [facility] 08-04-2024 Note [place] Consult [place] [facility] Reason for visit: Palpitations/shortness of breath HPI: Chester Negro is a 63 y.o. year old with past medical history of hypothyroidism, history of eosinophilic esophagitis, diastolic dysfunction has been experiencing palpitation for some time she had been seen by Dr. VERA in the past and had been evaluated at [facility] also. She had initially battled COVID infection [...] Tobacco Use: Low Risk (07/30/2024) Received from [facility] [employer] Patient History Smoking Tobacco Use: Never Smokeless Tobacco Use: Never Passive Exposure: Not on file Alcohol Use: Not At Risk (04/05/2021) Received from [employer], [facility] AUDIT-C Frequency of Alcohol Consumption: Never Average Number of Drinks: Not on file Frequency of Binge Drinking: Never Financial Resource Strain: Low Risk (04/05/2021) Received from [facility] [employer] [facility] Overall Financial Resource Strain (CARDIA) Difficulty of Paying Living Expenses: Not hard at all Food Insecurity: Not on file Transportation Needs: No Transportation Needs (04/05/2021) Received from [facility] [employer] [facility] PRAPARE - Transportation Lack of Transportation (Medical): No Lack of Transportation (Non-Medical): No Physical Activity: Unknown (12/19/2022) Received from [facility] [employer], [facility] Exercise Vital Sign Days of Exercise per Week: 6 days Minutes of Exercise per Session: Not on file Stress: No Stress Concern Present (04/05/2021) Received from [employer], [facility] [employer] [place] [facility] [employer] - Occupational Stress Questionnaire Feeling of Stress : Not at all Social Connections: Unknown (12/19/2022) Received from [facility], [facility] Social Connection and Isolation Panel [NHANES] Frequency of Communication with Friends and Family: Not on file Frequency of Social Gatherings with Friends and Family: Not on file Attends Rastafari Services: Not on file Active Member of Clubs or Organizations: Patient declined Attends Club or Organization Meetings: Patient declined Marital Status: Intimate Partner Violence: Unknown (08/29/2023) [place] Safety [place] Fear of Current or Ex-Partner: Not on file Emotionally Abused: Not on file Physically Abused: Not on file Sexually Abused: Not on file Physically or Sexually Abused: Not on file Depression: Not at risk (07/30/2024) Received from [facility] PHQ-2 Patient Health Questionnaire-2 Score: 0 [...] 3 dapagliflozin propaned (more content not included)... [facility] 07-30-2024 History of Present illness Narrative [...] fail to improve. documented in this encounter [facility] 06-24-2024 Note [facility] Cardiology Clinic Note Chief Complaint: Patient here for follow up echo and stress test. She was started on metoprolol at last visit and thinks it's helping to lessen the palpitations. She can tell when the next dose is due. HPI: Chester Negro is a 63 y.o. female With a longstanding history of palpitations. She was seen years ago by social worker delinquency prevention in [place]. She underwent a number of tests. She [...] denies illicit drugs. 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 Family history: Heart heart father of a [...] regurgitation or stenosis. Nuc stress Lexiscan Order: [id number] Narrative Chest pain radiating to jaw for [...] by Albaro Osei, (more content not included)... [facility] 05-20-2024 Note [facility] Cardiology Clinic Note Chief Complaint: New patient here to establish care. She wore 2 week Holter monitor last month for palpitations, SOB, and lightheadedness. She denies chest pain. HPI: Chester Negro is a 63 y.o. female With a longstanding history of palpitations. She was seen years ago by social worker delinquency prevention in [place]. She underwent a number of tests. She [...] denies illicit drugs. 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 Family history: Heart heart father of a [...] regurgitation or stenosis. Nuc stress Lexiscan Order: [id number] Narrative Chest pain radiating to jaw for [...] 13:14 Last Resulted: 05/22/19 13:54 Received From: [employer] CTA Chest W IV Contrast Order: [id number] Narrative Clinical indication Coughing, shortness of breath, [...] concerning for a (more content not included)... [facility] 03-31-2024 History of Present illness Narrative Images from the original note were not included. HPI referral to endocrinology Additional comments: She is still looking into this. She is going to check out one in [place]. Last edited by Anuja Meade LPN on [...] fail to improve. documented in this encounter [facility] 08-15-2023 History of Present illness Narrative Subjective Patient ID: Chester Negro is a 62 y.o. female who presents for Wellness. Subjective Chester Negro is a 62 y.o. female and is here for a comprehensive physical exam. The patient would like to discuss her Levothyroxine. States Dr. Zhao had her on CIRCULATING NURSE thyroid at one time and she felt [...] Hiatal hernia The patient is seeing a front office medical assistant for this condition, treatment is deferred to that specialist. Correspondence from that specialist and any available testing were reviewed during today's visit. Palpitation This is a chronic medical condition that is stable since last assessment. No changes in treatment are suggested at this time. Polyp of colon, unspecified part of colon, unspecified type The patient is seeing a front office medical assistant for this condition, treatment is deferred to that specialist. Correspondence from that specialist and any available testing were reviewed during today's visit. Diverticulosis of colon The patient is seeing a front office medical assistant for this condition, treatment is deferred to that specialist. Correspondence from that specialist and any available testing were reviewed during today's visit. Eosinophilic esophagitis The patient is seeing a front office medical assistant for this condition, treatment is deferred to that specialist. Correspondence from that specialist and any available testing were reviewed during today's visit. Gastric mass The patient is seeing a front office medical assistant for this condition, treatment is deferred to that specialist. Correspondence from that specialist and any available testing were reviewed during today's visit. History of gastric ulcer The patient is seeing a front office medical assistant for this condition, treatment is deferred to that specialist. Correspondence from that specialist and any available testing were reviewed during today's visit. Irritable bowel syndrome with diarrhea The patient is seeing a front office medical assistant for this condition, treatment is deferred to that specialist. Correspondence from that specialist and any available testing were reviewed during today's visit. Schatzki's ring of distal esophagus The patient is seeing a front office medical assistant for this condition, treatment is deferred to that specialist. Correspondence from that specialist and any available testing were reviewed during today's visit. Mercer-Walker grade 3 cystocele The patient is seeing a front office medical assistant for this condition, treatment is deferred to that specialist. Correspondence from that specialist and any available testing were reviewed during today's visit. Cystocele, midline The patient is seeing a front office medical assistant for this condition, treatment is deferred to that specialist. Correspondence from that specialist and any available testing were reviewed during today's visit. Enlarged uterus The patient is seeing a front office medical assistant for this condition, treatment is deferred to that specialist. Correspondence from that specialist and any available testing were reviewed during today's visit. Fibroids, submucosal The patient is seeing a front office medical assistant for this condition, treatment is deferred to [...] free; Future - TSH; Future - thyroid (CIRCULATING NURSE Thyroid) 60 MG tablet; Take 1 tablet (60 mg) by mouth in the morning. - T3, free; Future - T4, free; Future - TSH; Future Will get updated baseline thyroid testing, the repeat in 6-8 weeks. She will restart the CIRCULATING NURSE Thyroid and discontinue the Levothyroxine. Advise pt that if we cannot obtain stable labs regarding her thyroid I would recommend a referral to [facility] for further evaluation. She is in agreement with the above. ESS (euthyroid sick syndrome) - T3, free; Future - T4, free; Future - TSH; Future - thyroid (CIRCULATING NURSE Thyroid) 60 MG tablet; Take 1 tablet (60 mg) by mouth in the morning. - T3, free; Future - T4, free; Future - TSH; Future See above. Wanda's disease (CMS/HCC) - T3, free; Future - T4, free; Future - TSH; Future - T3, free; Future - T4, free; Future - TSH; Future See above. Left ovarian cyst The patient is seeing a front office medical assistant for this condition, treatment is deferred to [...] breast cancer The patient is seeing a front office medical assistant for this condition, treatment is deferred to that specialist. Correspondence from that specialist and any available testing were reviewed during today's visit. H/O tubal ligation The patient is seeing a front office medical assistant for this condition, treatment is deferred to [...] endometrial ablation The patient is seeing a front office medical assistant for this condition, treatment is deferred to [...] Tubular adenoma The patient is seeing a front office medical assistant for this condition, treatment is deferred to that specialist. Correspondence from that specialist and any available testing were reviewed during today's visit. Vision abnormalities The patient is seeing a front office medical assistant for this condition, treatment is deferred to that specialist. Correspondence from that specialist and any available testing were reviewed during today's visit. Follow up in about 6 months (around 02/13/2024) for Medication Follow Up. documented in this encounter [facility] 02-02-2022 History of Present illness Narrative Images from the original note were not included. Gynecology Rounds POD# 1 Procedure: Anterior Colporrhaphy Date: 02/02/2022 Time: 10:00 AM Patient Name: Chester Negro Patient : [id number] Room/Bed: [facility] Admission Date/Time: 02/01/2022 6:02 AM [facility] #: [id number] Attending Physician Statement I have discussed the [...] Ketones, Urine 02/01/2022 NEGATIVE NEGATIVE Final Specific [place], UA 02/01/2022 1.008 1.000 - 1.030 Final [...] QD - Currently asymptomatic Hypothyroidism - Continue Milton Thyroid 60mg BID Hx gastric ulcer - Will avoid PO NSAIDs Please PerfectServe Dr. Rehana Hernandez from [phone] with any questions David Kimball DO Ekg Technician Resident 02/02/2022, 7:13 AM Gynecology Progress Note [...] NEGATIVE NEGATIVE Ketones, Urine NEGATIVE NEGATIVE Specific [place], UA 1.008 1.000 - 1.030 Urine Hgb [...] QD - Currently asymptomatic Hypothyroidism - Continue Milton Thyroid 60mg BID Hx gastric ulcer - Will avoid PO NSAIDs Please [facility] Dr. Isabel Omer from [phone] with [address] questions [address] Ksenia Herman from [id number] Margarito Saldivar MD Ekg Technician Resident Pager: [phone] 02/01/2022, 12:41 PM Resident Physician Statement I have personally seen the patient. I agree with the assessment, plan and orders as documented by horacio resident. I have made changes to the above note as needed. I have discussed the case with above named attending. Isabel Omer DO ART THERAPY CERTIFIED SUPERVISOR PGY-3 02/01/2022 12:46 PM documented in this encounter [facility] Phone: 02-01-2022 Hospital Discharge instructions Ino Brothers DO - 02/01/2022 7:26 AM EDT Images from the original note were not included. Patient Name: Chester Negro Date: 02/01/2022 Time: 7:24 AM [facility] Obstetrics & Gynecology Outpatient Surgery After Care Instructions For Problems after Leaving the Hospital Call IN AN EMERGENCY CALL [phone] OR GO TO THE NEAREST EMERGENCY ROOM For The next 24 hours: Do not: drive, work, or operate machinery Do not: consume alcohol, tranquilizers, or sleeping medications Do not: make important personal or business decisions Normal post operative expectations: A low grade fever [place] coloration of skin from soap Sore scratchy [...] with food Take Pain medication with food [facility] Obstetrics & Gynecology Activity: Restrict your [...] all persons verbalize understanding of the instructions. [facility] Obstetrics & Gynecology [facility] [address] [address] Discharge Instructions for Cystocele and Rectocele Repair [...] taking more than one drug. This includes uyqg-vrv-wyfqjua medication and herb or dietary supplements. Plan [...] call 911 immediately. documented in this encounter [facility] Phone: 01-22-2022 History of Present illness Narrative Patient went to radiology for chest x-ray. Dr Brothers's office has already obtained endocrine clearance and this is included in surgery chart. documented in this encounter [facility] Phone: 01-22-2022 Hospital Discharge instructions Shahla Rapp [...] surgery with a sip of water: metoprolol, CIRCULATING NURSE thyroid Surgery Instructions: After midnight before surgery: [...] powder, deodorant, jewelry, piercings, perfume, makeup, nail belizean, hair accessories, or hair spray on the day of surgery. Wear loose comfortable clothing. Leave your valuables at home. Bring a storage case for any glasses/contacts. The Day of Surgery: Arrive at [facility] Surgery Entrance at the time directed by your surgeon and check in at the desk. If you have a living will or healthcare power of math professor, please bring a copy. You will be taken to the pre-op holding area where you will be prepared for surgery. A physical assessment will be performed by a nurse practitioner or feed house supervisor. Your IV will be started and you [...] room. . documented in this encounter [facility] [employer] [facility] Work Phone: 09-29-2021 History of Present illness Narrative It is to be noted that I can not sign the H&P for reason that I'm not assigned as a co signer. The nurse is aware and OKyed to start the Procedure SO ADMINISTRATION PLEASE DON'T SEND ME A LETTER. THANK YOU! documented in this encounter [facility] Phone: 09-25-2021 Reason for visit Narrative Specialty Diagnoses / Procedures Referred By Elma pepe Referred To Contact Diagnoses History of colon polyps GERD (gastroesophageal reflux disease) HISTORY OF COLON POLYPS / GERD COVID 09/25 Procedures WA ESOPHAGOGASTRODUODENOSCOPY TRANSORAL DIAGNOSTIC WA COLONOSCOPY FLX DX W/COLLJ SPEC WHEN PFRMD EGD COLONOSCOPY DIAGNOSTIC Constantine Sanchez MD [facility], [address] [place] [address] Ask [address] [place] [address] Referral ID Status Reason Start Date Expiration Date Visits Re quested Visits Authorized [id number] 1 1 [facility] Phone: [phone] History of Present illness Narrative* Su Tolbert [...] lotion, powder, jewelry, piercings, perfume, makeup, nail belizean, hair accessories, or hair spray on the day of surgery. Wear loose comfortable clothing. 4. Leave your valuables at home. Bring a storage case for any glasses/contacts. 5. An adult who is responsible for you MUST drive you home and should be with you for the first 24 hours after surgery. The Day of Surgery: Arrive at [facility] Surgery Entrance at the time directed by your surgeon and check in at the desk. If you have a living will or healthcare power of math professor, please bring a copy. You will be taken to the pre-op holding area where you will be prepared for surgery. A physical assessment will be performed by a nurse practitioner or feed house supervisor. Your IV will be started and you [...] Sharad and understanding verbalized. documented in this encounter[facility]aris Royalty Phone: evaluation note* Diagnosis Visit for screening mammogram Other screening mammogram documented in this encounter [facility] Phone: evaluation note* Diagnosis Pre-op testing- Primary Preoperative examination, unspecified documented in this encounter [facility] Phone: evaluation note* Diagnosis Gastroesophageal reflux disease Esophageal reflux Screening for colorectal cancer Special screening for malignant neoplasms, colon documented in this encounter [facility] Phone: evaluation note* Diagnosis Overflow incontinence documented in this encounter [employer] Phone: evaluation note* Diagnosis Encounter for screening mammogram for malignant neoplasm of breast Other screening mammogram documented in this encounter [employer] Phone: evaluation note* Diagnosis Pre-op testing Preoperative examination, unspecified Cystocele, unspecified (CODE) documented in this encounter [employer] Phone: evaluation note* Diagnosis S/P anterior colporrhaphy- Primary Cystocele, unspecified (CODE) Mercer-Walker grade 3 cystocele Overflow incontinence Cystocele REPAIR 02/01/2022 Cystocele, midline Other specified hypothyroidism History of gastric ulcer Personal history of other diseases of digestive system Heart palpitations Palpitations documented in this encounter [employer] Phone: evaluation note* Diagnosis Post-menopausal Asymptomatic postmenopausal status (age-related) (natural) documented in this encounter [employer] Phone: evalpywheo note* Diagnosis Wellness examination- Primary Cervical radiculopathy [...] bowel syndrome Schatzki's ring of distal esophagus Mercer-Walker grade 3 cystocele Cystocele, midline Enlarged uterus [...] Other screening mammogram [facility] Diagnosis Palpitation- Primary Palpitations Shortness of breath Acquired hypothyroidism (CMS/HCC) Unspecified hypothyroidism documented in this encounter [facility]* Diagnosis 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 Thoracic spine pain Pain in thoracic spine 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 documented in this encounter [facility]* Diagnosis Abnormal finding on imaging of liver- Primary Hepatic lesion Hypokalemia Hypopotassemia Vitamin D deficiency Vitamin B-complex deficiency Unspecified vitamin B deficiency Acquired hypothyroidism (CMS/HCC) Unspecified hypothyroidism Elevated LDL cholesterol level (CMS/HCC) PSVT (paroxysmal supraventricular tachycardia) (CMS/HCC) Paroxysmal supraventricular tachycardia Tubular adenoma Benign neoplasm of unspecified site documented in this encounter [facility]* Diagnosis Acquired hypothyroidism- Primary Unspecified hypothyroidism [facility] Diagnosis Wellness examination- Primary [...] regurgitation Palpitation Palpitations PSVT (paroxysmal supraventricular tachycardia) ([facility]) Paroxysmal supraventricular tachycardia Polyp of colon, unspecified part of colon, unspecified type Diverticulosis of colon Diverticulosis of colon (without mention of hemorrhage) Eosinophilic esophagitis Gastric mass Unspecified disorder of stomach and duodenum History of gastric ulcer Irritable bowel syndrome with diarrhea Irritable bowel syndrome Schatzki's ring of distal esophagus Mercer-Walker grade 3 cystocele Cystocele, midline Enlarged uterus [...] Loss of weight documented in this encounter [facility] Discharge instructions* Instructions* Orestes Martell, RN - [...] Where can you learn more? Go to [email or web address] and sign in to your Guide account. Enter E264 in the Search Health Information box to learn more about Colonoscopy: What to Expect at Home. If you do not have an account, please click on the Sign Up Now link. [id number] [employer]. Care instructions adapted under license by [employer]. This care instruction is for use with your licensed healthcare professional. If you have questions about a medical condition or this instruction, always ask your healthcare professional. [employer] disclaims any warranty or liability for your use of this information. Content Version: [id number]; Last Revised: August 27, 2012 PATIENT INSTRUCTIONS [...] of fluids when exercising. MEDICATIONS: Take an ucto-ehx-hehmwff fiber supplement as noted above twice daily. [...] to call your physician or the hospital shuttle buggy operator if you have any questions, and [...] Whole-grain breads, muffins, bagels, or dimitri bread [place] bread Whole-wheat crackers or crisp breads Whole-grain or bran cereals Oatmeal, oat bran, or grits Wheat germ Whole-wheat pasta and brown rice Read the ingredients list on food labels. Look for products that list whole as the first ingredient (eg, whole-wheat, whole oats). Choose cereals with at least 2 grams of fiber per serving. Vegetables All vegetables, especially asparagus, maldonado sprouts, broccoli, [place] sprouts, cabbage, carrots, cauliflower, celery, corn, greens, [...] All nuts and seeds, especially almonds, peanuts, Pinon nuts, cashews, peanut butter, walnuts, sesame and [...] or sigmoidoscopy . A Colon Polyp 2011 [employer]. Reasons for Procedure The purpose of the [...] throat or neck pain documented in this encounterAlaris Royalty Phone: InstructionsNot on filedocumented in this encounter [facility] for visit Narrative* Auth/Cert Specialty Diagnoses / Procedures Referred By Elma t Referred To Contact Diagnoses Cystocele, unspecified (CODE) PELVIC PRESSURE CYSTOCELE Procedures WA ANTERIOR COLPORRAPHY RPR CYSTOCELE W/CYSTO VAGINAL ANTERIOR REPAIR Ino Brothers, [facility], [address] [place] [address] [facility] [address] [place] [address] Referral ID Status Reason Start Date Expiration Date Visits Re quested Visits Authorized [id number] 1 1 [employer] Phone: reason for visit Narrative* MRI/CT (Routine) - Open Specialty Diagnoses / Procedures [facility]erred To Contact [facility] Diagnoses Chronic diastolic (congestive) heart failure Eosinophilia, unspecified MRI Cardiac Morph function w/wo IVCON Diagnosis: Diastolic CHF, chronic Eosinophilic disorder Scanned Docs I50.32 Procedures CARD MRI W/W/O CON W/STRESS IMAGE MRI WWO CARD 440 Vik Mcarthur MD [address] [place] [address] Phone: tel: fax: [facility] [address] [place] [address] Phone: tel: Referral ID Status Reason Start Date Expiration Date V isits Requested Visits Authorized [id number] Open Patient Cleared - Admin/Chairm an/Director advise to proceed or did not respond 08/20/2024 10/19/[address] [facility] for visit Narrative* Auth/Cert Specialty Diagnoses / Procedures Referred By Elma Referred To Contact Diagnoses EE (eosinophilic esophagitis) Diverticulosis of colon Weight loss Procedures WA EGD TRANSORAL BIOPSY SINGLE/MULTIPLE WA ESOPHAGOGASTRODUODENOSCOPY TRANSORAL DIAGNOSTIC WA EGD BALLOON DILATION ESOPHAGUS <30 MM DIAM ESOPHAGOGASTRODUODENOSCOPY BIOPSY Ahmad, Farid U, MD [address], [address] [place] [address] Phone: tel: fax: [facility] [address] [place] [address] Referral ID Status Reason Start Date Expiration Date Visits Re quested Visits Authorized [id number] 1 1 [facility] [place] Summary Purpose Family History No Family History Records FoundNo Family History Records FoundNo Family History Records FoundNo Family History Records FoundNo Family History Records FoundNo Family History Records FoundNo Family History Records FoundNo Family History Records FoundNo Family History Records Found Advance Directives No Advanced Directives Records FoundDocuments on File Type Date Recorded Patient Hospital Internship Expl anation ACP-Advance Directive ACP-Power of Target Man Latest Code Status on File Code Status Date Activated Date Inactivated Comments Full Code 03/14/2016 8:36 AM 03/15/2016 12:04 AM Documents on File Type Date Recorded Patient Hospital Internship Expl anation ACP-Advance Directive ACP-Power of Target Man Latest Code Status on File Code Status Date Activated Date Inactivated Comments Full Code 03/14/2016 8:36 AM 03/15/2016 12:04 AM Documents on File Type Date Recorded Patient Hospital Internship Expl anation Advance Directives and Living Will Power of Target Man Latest Code Status on File Code Status [...] WO CAD BILATERAL Zev Rose Helms, DO [address] [place] [address] Specialty Diagnoses / Procedures Referred By Contac t Referred To Contact Radiology Diagnoses Encounter for screening mammogram for malignant neoplasm of breast Procedures JORGE FABIAN DIGITAL SCREEN BILATERAL JORGE DIGITAL SCREEN W OR WO CAD BILATERAL Ino Brothers, DO [address] [place] [address] Referral ID Status Reason Start Date Expiration Date Visits Re quested Visits Authorized [id number] Closed 12/15/2021 12/15/2022 1 1 Specialty Diagnoses / Procedures Referred By Contac t Referred To Contact Cardiology Diagnoses Pre-op testing Procedures EKG 12 lead Ino Brothers, DO [address] [place] [address] Referral ID Status Reason Start Date Expiration Date Visits Re quested Visits Authorized [id number] Open 01/16/2022 01/16/2023 1 1 Specialty Diagnoses / Procedures Referred By Contac t Referred To Contact Radiology Diagnoses Post-menopausal Procedures DEXA BONE DENSITY AXIAL SKELETON Ino Brothers, DO [address] [place] [address] Referral ID Status Reason Start Date Expiration Date V isits Requested Visits Authorized [id number] Pending Review 12/05/2021 12/05/2022 1 1 Specialty Diagnoses / Procedures Referred By Contac t Referred To Contact Radiology Diagnoses Palpitation Shortness of breath Procedures Holter monitor Candy Gilbert PA [address] [facility] [address] [place] [address] Referral ID Status Reason Start Date Expiration Date V isits Requested Visits Authorized [id number] Pending Review 03/31/2024 09/27/2024 1 1 Additional Source Comments INFORMATION SOURCE (unrecogn ized section and content) DATE CREATED AUTHOR 12/31/2017 [facility] DATE CREATED AUTHOR AUTHOR'S ORGANIZ ATION 12/01/2021 [facility] dical Specialist DATE CREATED AUTHOR AUTHOR'S ORGANIZ ATION 04/27/2024 [facility] DATE CREATED AUTHOR AUTHOR'S ORGANIZ ATION 08/22/2024 [facility] DATE CREATED AUTHOR AUTHOR'S ORGANIZ ATION 12/18/2024 [facility] DATE CREATED AUTHOR AUTHOR'S ORGANIZ ATION 01/02/2025 [facility] dical Specialists EPIC DATE CREATED AUTHOR AUTHOR'S ORGANIZ ATION 03/15/2025 [facility] DATE CREATED AUTHOR AUTHOR'S ORGANIZ ATION 03/18/2025 [facility] DATE CREATED AUTHOR AUTHOR'S ORGANIZ ATION 04/09/2025 [facility] Reason for Visit (unrecogniz ed section and content) Status Reason Specialty Diagnoses / Procedures Referre d By Contact Referred To Contact Closed Radiology Diagnoses Visit for screening mammogram Procedures JORGE FABIAN DIGITAL SCREEN SELF REFERRAL W OR WO CAD BILATERAL Rose Brothers, [place] [address] Specialty Diagnoses / Procedures Referred By Contac t Referred To Contact Radiology Diagnoses Encounter for screening mammogram for malignant neoplasm of breast Procedures JORGE FABIAN DIGITAL SCREEN BILATERAL JORGE DIGITAL SCREEN W OR WO CAD BILATERAL Ino Brothers, [address] [address] Referral ID Status Reason Start Date Expiration Date Visits Re quested Visits Authorized [id number] Closed 12/15/2021 12/15/2022 1 1 Specialty Diagnoses / Procedures Referred By Contac t Referred To Contact Radiology Diagnoses Post-menopausal Procedures DEXA BONE DENSITY AXIAL SKELETON Ino Brothers, DO [address] [place] [address], [address] [address] Referral ID Status Reason Start Date Expiration Date V isits Requested Visits Authorized [id number] Pending Review 12/05/2021 12/05/2022 1 1 Specialty Diagnoses / Procedures Referred By Elma pepe Referred To Contact Radiology Diagnoses Encounter for screening mammogram for malignant neoplasm of breast Procedures JORGE FABIAN DIGITAL SCREEN BILATERAL JORGE DIGITAL SCREEN W OR WO CAD BILATERAL Beam, Samantha Churchill, INSPECTOR FUEL HOSE - SYSTEMS INTEGRATOR [address] [facility] [address] [place] [address] Referral ID Status Reason Start Date Expiration Date Visits Re quested Visits Authorized [id number] Closed 04/12/2024 04/12/2025 1 1 Reason Comments referral to endocrinology She is still l ooking into this. She is going to check out one in [place]. 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 Reason Comments Annual Exam Care Teams (unrecognized sec tion and content) Top Carrier Relationship Specialty Start Date End Date Candy Gilbert [address] [place] [address] PCP - General 11/25/15 Top Carrier Relationship Specialty Start Date End Date Cnady Gilbert [address] [place] [address] PCP - General 11/25/15 Top Carrier Relationship Specialty Start Date End Date Candy Gilbert [address] [place] [address] PCP - General 11/25/15 Top Carrier Relationship Specialty Start Date End Date Candy Gilbert [address] [place] [address] PCP - General 11/25/15 Top Carrier Relationship Specialty Start Date End Date Candy Gilbert [address] [place] [address] PCP - General 11/25/15 Top Carrier Relationship Specialty Start Date End Date Candy Gilbert [address] [place] [address] PCP - General 11/25/15 Top Carrier Relationship Specialty Start Date End Date Candy Gilbert [address] [place] [address] PCP - General 11/25/15 Top Carrier Relationship Specialty Start Date End Date Candy Gilbert [address] [place] [address] PCP - General 11/25/15 Top Carrier Relationship Specialty Start Date End Date Candy Gilbert [address] [place] [address] PCP - General 11/25/15 Top Carrier Relationship Specialty Start Date End Date Cali Zhao MD [address] [place] [address] (Fax) PCP - [employer] 10/06/20 Jose Cruz Young MD [address] [facility] [facility] [address] [place] [address] PCP - General Internal Medicine 11/23/22 Top Carrier Relationship Specialty Start Date End Date Cali Zhao MD [address] [place] [address] (Fax) PCP - [facility] [employer] 10/06/20 Jose Cruz Young MD [address] [address] PCP - General Internal Medicine 11/23/22 Top Carrier Relationship Specialty Start Date End Date Cali Zhao MD [address] [place] [address] (Fax) PCP - [facility] 10/06/20 Candy Gilbert PA [address] [place] [address] PCP - General Family Medicine 08/15/23 Top Carrier Relationship Specialty Start Date End Date Candy Gilbert PA-C PCP - General 11/25/15 Top Carrier Relationship Specialty Start Date End Date Candy Gilbert PA [address] [place] [address] PCP - General Family Medicine 08/15/23 Top Carrier Relationship Specialty Start Date End Date Candy Gilbert PA [address] [place] [address] PCP - General Family Medicine 08/15/23 Top Carrier Relationship Specialty Start Date End Date Candy Gilbert PA [address] [place] [address] PCP - General Family Medicine 08/15/23 Top Carrier Relationship Specialty Start Date End Date Candy Gilbert PA [address] [place] [address] PCP - General Family Medicine 08/15/23 Top Carrier Relationship Specialty Start Date End Date Candy Gilbert PA [address] [place] [address] PCP - General Family Medicine 08/15/23 Top Carrier Relationship Specialty Start Date End Date Candy Gilbert PA [address] [place] [address] PCP - General Family Medicine 08/15/23 Top Carrier Relationship Specialty Start Date End Date Candy Gilbert PA PCP - General 11/30/17 Top Carrier Relationship Specialty Start Date End Date Candy Gilbert PA-C PCP - General 11/25/15 Top Carrier Relationship Specialty Start Date End Date Candy Gilbert PA [address] [place] [address] PCP - [facility] Family Medicine 08/15/23 Top Carrier Relationship Specialty Start Date End Date Candy Gilbert PA [address] [place] [address] PCP - General [facility] Medicine 08/15/23 Top Carrier Relationship Specialty Start Date End Date Candy Gilbert PA [address] [place] [address] PCP - [facility] Medicine 08/15/23 Top Carrier Relationship Specialty Start Date End Date Candy [...] - Provider: Mark Zapata Jr., BORIS - TIRE CHANGER)1031 (Paused - Provider: Mark Zapata Jr., APRN - TIRE CHANGER - Comment: Switch to gravity)1032 (Restarted - Provider: Mark Zapata Jr., BORIS - TIRE CHANGER) PRN Medication Order 09/27/2021 09/28/2021 09/29/2021 0.9 [...] at 200 mL/hr, Administer over 60 Minutes, DIGITAL TECHNICIAN TO O.R., On Sat02/01/22 at 0630, For 1 dose, Administer within 1 hour prior to incision., Pre-op (day of surgery) 0803 (Given - Provider: Kam Polanco, BORIS - TIRE CHANGER) clindamycin (CLEOCIN) 900 mg in dextrose 5 [...] approval) 2099 (Due - Provider: Yamileth Beltre [facility]) metoprolol tartrate (LOPRESSOR) tablet 25 mg 25 mg, Oral, DAILY, First dose on Sat02/02/22 at 0900, Until Discontinued 0704 (Given - Provid er: Kaya Marroquin RN) metronidazole (FLAGYL) 500 mg in 0.9% NaCl 100 mL IVPB premix (COMPLETED) 500 mg, IntraVENous, at 100 mL/hr, Administer over 60 Minutes, DIGITAL TECHNICIAN TO O.R., On Sat02/01/22 at 0630, For 1 dose, Administer within 1 hour prior to incision., Pre-op (day of surgery) 0749 (Given - Provider: Kam Polanco, INSPECTOR FUEL HOSE - TIRE CHANGER) pantoprazole (PROTONIX) tablet 40 mg 40 mg, [...] urine. 1445 (Given - Provider: Kaya Marroquin RN)9904 (Given - Provider: Tram Chery, RN) 0559 [...] or prosecute any alcohol or drug abuse patient.[facility] FOR RECORDS PERTAINING TO PATIENTS WHO [...] BE BASED ON THE PRIMARY CLINICAL RECORDS. [facility] provides no warranty or guarantee of the accuracy or completeness of information in this document.
== END 2025-04-12 09:05 | disposition home or self-care (01) ==
LOC: CARD 09:04
PROVIDERS: PCP Physician Assistant; Visit Provider Internal Medicine Interventional Cardiology
DX: R94.31 Abnormal electrocardiogram [ECG] [EKG] (principal); I50.30 Unspecified diastolic (congestive) heart failure; E03.9 Hypothyroidism, unspecified; I08.1 Rheumatic disorders of both mitral and tricuspid valves
CPT/HCPCS: 36415; 84439; 84443; 84481; 93306